=== PATIENT | male | born 1960 | race Two or more races ===

== ENCOUNTER 2025-05-16 05:29 | Inpatient (IN) | payer MEDICAID, SELFPAY ==
[2025-05-16] VITALS (11 sets, daily range): BP systolic 117–166; BP diastolic 77–100; PULSE 72–89; RESP 14–23; TEMP 36.3–37.3; O2SAT 89–100; BMI 20.9; BMI 17.7
--- NOTE | 2025-05-16 06:51 | EDNOTE_ITS ---
ED Fall Injury RME/HPI General Chief Complaint: Neuro Symptoms/Deficit Stated Complaint: NEAR SYNCOPE Time Seen by Provider: 05/16/25 06:45 Arrival date/time: 05/16/25 05:29 Limitations: no limitations RME / HPI RME / HPI Narrative: DR. MEJIA MAIN ED EVALUATION: 64 year old male presents to the Emergency Department [facility] with complaint of fall at work, he works at [employer]. He denies any injury from fall. No head injury or other symptoms reported at this time. He has repetitive motor movements that are chronic, from old age; he denies taking any medications for these spasms. Related Data Previous Rx's ?Medication ?Instructions ?Recorded acetaminophen 650 mg 650 mg PO Q8H PRN fever or p ain 05/10/23 tablet,extended release #30 tabs ibuprofen 600 mg tablet 600 mg PO Q8H PRN fever or p ain 05/10/23 #30 tabs Allergies Allergy/AdvReac Type Severity Reaction Status Date / Time No Known Allergies Allergy Verified 06/15/18 21:22 Review of Systems Review of Systems Systems Reviewed: All systems reviewed, normal except as documented Past Medical History Social History SMOKING STATUS: Never smoker SUBSTANCE USE: does not use ALCOHOL: Never ED Exam General Limitations: Present no limitations General appearance: Present alert and in no apparent distress Head Head exam: Present atraumatic, normocephalic and normal inspection Eye Eye exam: Present normal appearance, PERRL and EOMI ENT ENT exam: Present normal exam, normal oropharynx and mucous membranes moist Neck Neck exam: Present normal inspection, full ROM and trachea midline Chest Chest inspection: Present normal inspection and symmetric chest wall rise Respiratory Respiratory exam: Present normal lung sounds bilaterally Cardiovascular Cardiovascular exam: Present regular rate, normal rhythm and normal heart sounds Abdominal Exam Abdominal exam: Present soft and normal bowel sounds Extremities Exam Extremities exam: Present normal inspection and full ROM Back Exam Back exam: Present normal inspection and full ROM Neurological Exam Neurological exam: Present alert, oriented X3 and other (extra motor movements of the legs, arms, and neck, spasms but otherwise FROM of all extremities and no contractures) Psychiatric Psychiatric exam: Present normal affect and normal mood Skin Skin exam: Present warm, dry, intact and normal color Course Quality Measures none Orders Category Date Time Status COVID-19 Screening Questionnaire NOW Care 05/16/25 10:05 Active 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 Method 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 NOW Care 05/16/25 06:46 Active Continuous Pulse Oximetry NOW Care 05/16/25 06:46 Completed Decision to Admit X1 Care 05/16/25 10:04 Active EKG (ED ONLY) *Do not use* NOW Care 05/16/25 10:04 Active Insert [Insert IV] NOW Care 05/16/25 10:04 Active Consult to Nephrology Stat Cons 05/16/25 10:[address] cervical spine wo con Stat Exams 05/16/25 06:[address] head/brain wo con Stat Exams 05/16/25 06:50 Completed CXRP [XR chest 1V portable] Stat Exams 05/16/25 10:01 Taken EKG (ED Only) Stat Exams 05/16/25 10:01 Ordered CBC Stat Lab 05/16/25 06:52 Completed Comprehensive Metabolic Panel Stat Lab 05/16/25 06:52 Completed Creatine Kinase Stat Lab 05/16/25 10:17 Completed Lactate (Lactic Acid) Stat Lab 05/16/25 10:17 Completed PTT [Partial Thromboplastin Time] Stat Lab 05/16/25 10:17 Completed Prothrombin Time with INR Stat Lab 05/16/25 06:52 Completed LORazepam [Ativan] Med 05/16/25 06:50 Discontinued 1 mg PO X1 ONE Sodium Chloride 0.9% 1000 ml [Ns] 1,000 ml Med 05/16/25 10:01 Active IV 999 mls/hr levETIRAcetam INJ [Keppra Inj] Med 05/16/25 06:46 Discontinued 500 mg IVP X1 ONE Vital Signs Vital signs: Vital Signs Temperature 99.1 F 05/16/25 09:24 Pulse Rate 77 05/16/25 09:24 Respiratory Rate 17 05/16/25 09:24 Blood Pressure 164/93 H 05/16/25 09:24 Pulse Oximetry (%) 100 05/16/25 09:24 Oxygen Delivery Method Room Air 05/16/25 09:24 Fall MDM Narrative MDM Narrative:: I, Ania Langford, nataly scribing for and in the presence of Dr. Mejia. Status post fall but no injuries. Patient on exam had extra motor movements of the legs, arms, and neck, spasms but otherwise FROM of all extremities and no contractures. Labs show CORINA, creatinine was 6.2. Plan to admit for CORINA. Patient data External records reviewed:: [facility] previous records and EMS form Clinical information provided by:: patient, EMS and family Social determinants that could affect healthcare access:: none Patient has the following chronic illnesses:: Abdominal hernia. How is presenting disease/condition affected by chronic disease/condition?: uneffected by Evaluation data The following diagnostics were reviewed and interpreted by me:: lab results and radiology exam(s) Lab and/or radiology exams considered but not ordered:: none Interpretation Summary: Procedure(s): CT head/brain wo con Accession Number(s): [id number] cc: Yvan Mejia MD; Srinivasa Moncada MD; NO PRIMARY/FAMILY,PHYSICIAN~ Examination: CT brain head without contrast. 2-D sagittal coronal reconstructions Date and time of exam:May 16, 2025 0828 hours INDICATIONS: Patient fell today with injury to the head, head pain CTDI: vol (mGy):52.2 DLP: (mGycm):1113 Technique: Multiple CT axial sections of the brain have been obtained, 5 mm slice thickness. Contrast has not been administered. 2-D sagittal, coronal reconstructions have been obtained Low dose protocols were performed. One or more of the following dose reduction techniques were used; automated exposure control, adjustment of the mA and/or KV according to patient size, use of iterative reconstruction technique. Findings: All of the images are severely degraded by patient motion Ventricles are mildly to moderately enlarged. No gross hemorrhage IMPRESSION: Technically severely limited study No gross hemorrhage Repeat this study when the patient can cooperate Dictated By: Srinivasa Moncada MD Procedure(s): CT cervical spine wo con Accession Number(s): [id number] cc: Yvan Mejia MD; Srinivasa Moncada MD; NO PRIMARY/FAMILY,PHYSICIAN~ Examination: CT cervical spine without contrast 2-D sagittal reconstructions 2-D coronal reconstructions 3-D reconstructions. Exam date and time:May 16, 2025 0828 hours INDICATIONS: Patient fell today with injury to the neck, neck pain CTDI:vol (mGy) 7.86 DLP: (mGycm) 190 Technique: Multiple 2 mm axial sections of the cervical spine have been obtained. The coronal and sagittal reconstructions have been obtained. 3-D reconstructions have been obtained. Low dose protocols were performed. One or more of the following dose reduction techniques were used; automated exposure control, adjustment of the mA and/or KV according to patient size, use of iterative reconstruction technique. Findings: Images are severely degraded by continual patient motion No gross fracture IMPRESSION: Severely limited study. No gross fracture Recommend repeating this study when the patient can cooperate Dictated By: Srinivasa Moncada MD Medications / Prescriptions Medications or Prescriptions considered but not ordered:: none Medication administrations:: Medication Administration History Acetaminophen (Acetaminophen 325 Mg Tablet) 650 mg PO Q6H PRN PRN Reason: Fever >100.4 or pain Stop: 06/15/25 10:20 Sodium Chloride (Ns) 1,000 mls @ 999 mls/hr IV .Q1H1M ONE Stop: 05/16/25 11:01 Lactated Ringer's (Lactated Ringers) 1,000 mls @ 75 mls/hr IV .[id number] SHADY Stop: 06/15/25 10:47 Ondansetron HCl (Ondansetron Inj 2 Mg/Ml Inj 2 Ml) 4 mg IVP Q6H PRN; Protocol PRN Reason: NAUSEA OR VOMITING Stop: 06/15/25 10:20 Discontinued Medications Heparin Sodium (Porcine) (Heparin Sod Inj 5000 Unit/Ml Vial) 5,000 unit SC Q12HR SHADY Stop: 05/30/25 10:29 Levetiracetam (Levetiracetam Inj 100 Mg/Ml Vial 5ml) 500 mg IVP X1 ONE Stop: 05/16/25 06:47 Last Admin: 05/16/25 09:43 Dose: Not Given Documented By: CG Non-Admin Reason: Cancelled by Provider Lorazepam (Lorazepam 0.5 Mg Tablet) 1 mg PO X1 ONE Stop: 05/16/25 06:51 Last Admin: 05/16/25 09:12 Dose: 1 mg Documented By: CG see above Consultations Consultation(s) initiated? (list below): Yes Consultation #1 (Physician, Specialty, Details): Discussed test HPI, PMHx, lab, radiology results and/or management with Dr. Santana. Will consult an admission to the hospitalist. Time: 10:30 Consultation #2 (Physician, Specialty, Details): Discussed test HPI, PMHx, lab, radiology results and/or management with resident working with the hospitalist. Will admit for further evaluation and management. Accepts patient for admission. Time: 10:45 Diagnosis Fall Differential Diagnosis: other (Muscle spasms, chronic extra motor movements, head injury) Most likely diagnosis given after review of the tests above:: CORINA Admission Indicated Admission indicated?: indicated Admission Request Was there a request for admission?: Yes Admission Attestation Admission request attestation: Discussed case with [] from Hospitalist service regarding admission. Discussed patients ED course, exam findings, labs, and radiology results. The Hospitalist [agrees,declines] to accept the patient for admission. Disposition Plan Disposition Plan: Admit Discharge Plan Plan Patient Disposition: Admit Acute Care w/in Hospital Patient condition on transfer: Stable Problem List Clinical Impression: CORINA (acute kidney injury)
[2025-05-16 07:17] LABS: Basophils # (Auto) 0.1 Thou/mm3 (0.0-0.2); Basophils % (Auto) 1 % (0-2.5); Eosinophils # (Auto) 0.1 Thou/mm3 (0.0-0.5); Eosinophils % (Auto) 1 % (0-10); Hematocrit 26.6 % (41.0-53.0); Immature Granulocytes Auto 0.05 Thou/mm3 (0.00-0.00); Lymphocytes # (Auto) 0.8 Thou/mm3 (1.0-4.8); Lymphocytes % (Auto) 8 % (10-50); Mean Corpuscular HGB Conc 33.1 g/dl (31.0-37.0); Mean Corpuscular Hemoglobin 30.7 pg (25.0-35.0); Mean Corpuscular Volume 93 fL (80-100); Monocytes # (Auto) 0.7 Thou/mm3 (0.0-0.8); Monocytes % (Auto) 7 % (0-12); Neutrophils # (Auto) 7.8 Thou/mm3 (1.8-7.7); Neutrophils % (Auto) 83 % (37-80); Nucleated Red Blood Cell # 0.00 Thou/mm3 (0.00-0.00); Nucleated Red Blood Cell % 0 /100 WBC (0); Platelet Count 300 Thou/mm3 (140-440); RDW Standard Deviation 45.7 fL (35.1-43.9); Red Blood Count 2.87 Miln/mm3 (4.50-5.90); White Blood Count 9.5 Thou/mm3 (3.8-10.6)
[2025-05-16 07:26] LABS: Hemoglobin 8.8 g/dL (13.5-16.0)
[2025-05-16 07:30] LABS: INR 1.0 (0.9-1.3); Prothrombin Time 11.1 Seconds (9.0-12.2)
[2025-05-16 07:39] LABS: Alanine Aminotransferase 14 U/L (10-49); Albumin, Serum 4.0 gm/dL (3.4-4.8); Albumin/Globulin Ratio 1.3 (1.2-2.2); Alkaline Phosphatase 96 U/L (46-116); Anion Gap 14 (7-16); Aspartate Amino Transferase 18 U/L (0-34); BUN/Creatinine Ratio 15 Ratio (12-20); Bilirubin,Total 0.2 mg/dL (0.3-1.2); Blood Urea Nitrogen 92 mg/dL (9-23); Calcium 8.6 mg/dL (8.3-10.6); Calcium (Corrected) 8.6 mg/dL (8.5-10.1); Carbon Dioxide 20.5 mMol/L (20.0-31.0); Chloride 109 mMol/L (98-107); Creatinine (Component) 6.2 mg/dL (0.6-1.3); Globulin 3.0 gm/dL (2.3-3.5); Glucose 102 mg/dL (74-106); Osmolality,Calculated 313 (275-295); Potassium 4.4 mMol/L (3.4-5.1); Sodium 143 mMol/L (136-145); Total Protein 7.0 gm/dL (5.7-8.2); eGFR 10 See Note
--- NOTE | 2025-05-16 10:01 | XR_ITS ---
Examination: AP chest single view Technique one AP portable upright chest single view Date and time: May 16, 2025 1007 hours INDICATIONS: Coughing today. FINDINGS: Normal heart size. No lobar pneumonia. The osseous structures are intact IMPRESSION: No lobar pneumonia
--- NOTE | 2025-05-16 10:01 | EKG_ITS ---
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
[2025-05-16 10:24] LABS: Lactate (Lactic Acid) 0.5 mMol/L (0.4-2.0)
--- NOTE | 2025-05-16 10:32 | XR_ITS ---
Examination: Retroperitoneal ultrasound, complete Technique: Multiple high resolution grayscale images of the retroperitoneum obtained, including kidneys and bladder. Exam date and time:May 16, 2025 1220 hours INDICATIONS: Acute renal insufficiency on laboratory examination today FINDINGS: Right kidney 14.8 cm renal cortex 0.5 cm Left kidney 18.0 cm renal cortex 1.7 cm Advanced bilateral hydronephrosis Solid nodule bladder wall 2.8 x 1.9 x 1.4 cm Bladder prevoid volume 894 cc IMPRESSION: Advanced hydronephrosis Bladder mass Consider CT abdomen and pelvis without contrast follow-up
[2025-05-16 10:42] LABS: Creatine Kinase 323 U/L (34-171); Partial Thromboplastin Time 29.5 Seconds (22.0-36.0)
--- NOTE | 2025-05-16 10:44 | PD.RESCONSUL ---
HPI Data of Consult Consult date: 05/16/25 Requesting Physician: Margie Davis DO Admitting Provider: Margie Davis DO Attending Provider: Margie Davis DO Primary Care Provider: Physician No Primary/Family Consult Narrative Reason for consult: CORINA History of present illness: Amarjit Meade is a 62-year-old male with no past medical history presented for mechanical fall at work. States that he fell forward because his lower back has been giving out for the past few months. He has also been having chorea-like, jerky movements for the past few months and is supposed to see neurology but is having insurance issues. Has not seen a physician in many years. Per , patient has been having enuresis for the past few weeks and claims patient is stubborn and does not want to see a physician. Patient's urine is normally green due to vitamin supplements. Patient admits that he does not drink very much water nor does he urinate very much. Denies pain on urination, increase in urinary urgency, frequency or hesitancy, interrupted stream, any history of prostate issues, flank pain, or recent weight loss. Denies fever, chills, shortness of breath or chest pain. Denies family history of any kidney disease or dialysis. In the ED blood pressure 164/93 heart rate 77 temp 99.1 saturating 100% on room air. Significant labs include hemoglobin 8.8, creatinine 6.2, BUN of 92, and GFR of 10, no baseline to compare. Lactic acid 0.5, CK 323. Nephrology consulted for CORINA workup. Patient currently seen in the emergency department. Son at bedside. cc:: cc: Margie Davis DO Review of Systems Review of Systems Narrative Review of Systems: CONSTITUTIONAL: Patient denies any fever, chills. Patient had weight loss HEENT: Denies any visual disturbances or hearing problems. CARDIOVASCULAR: Patient denies any chest pain, shortness of breath, swelling in the lower extremities. PULMONARY: Patient denies any shortness of breath, cough. GASTROINTESTINAL: Patient denies any abdominal pain, constipation, nausea, vomiting, diarrhea. GENITOURINARY: Patient denies any urinary symptoms of burning or frequency or hematuria, denies any form in the urine. SKIN: Denies any rash. MUSCULOSKELETAL: Gait imbalance with fall NEUROLOGICAL: Denies any neurological problems of strokes, seizures or confusion. Denies any memory problems. Patient has involuntary jerking movements. PSYCHIATRIC: Denies any depression or anxiety. LYMPHATICS : No lymphadenopathy Past Medical History Past Medical History CARDIAC: Negative Congestive Heart Failure RESPIRATORY: Negative Chronic Obstructive Pulmonary Disease (COPD) GENITOURINARY: Negative Renal Disease ENDOCRINE: Negative Diabetes Mellitus Type 1 or Diabetes Mellitus Type 2 Social History SMOKING STATUS: Former smoker SUBSTANCE USE: does not use Exam Vital Signs Temp Pulse Resp BP Pulse Ox O2 Del Method 99.1 F 77 17 164/93 H 100 Room Air 05/16/25 09:24 05/16/25 09:24 05/16/25 09:24 05/16/25 09:24 05/16/25 09:24 05/16/25 09:24 Narrative Exam General: AOx1, no acute distress, chorea-like movements present HEENT: NC/AT, mucous membranes dry, bilateral sclera anicteric Cardiovascular: regular rate and rhythm, S1/S2 present, no murmurs appreciated Pulmonary: clear to auscultation bilaterally, no rales/rhonchi/wheezes Abdominal: soft, non-tender, non-distended, no rebound/guarding, bowel sounds present Extremities: no peripheral edema Skin: warm and dry, intact, no rashes Neuro CN II-XII grossly intact, no focal deficits, alert, following commands Results Labs 05/16/25 17:40 05/16/25 06:52 Labs: Short CBC 05/16/25 Range/Units 06:52 WBC 9.5 (3.8-10.6) Thou/mm3 Hgb 8.8 L (13.5-16.0) g/dL Hct 26.6 L (41.0-53.0) % Plt Count 300 (140-440) Thou/mm3 BMP 05/16/25 06:52 Sodium 143 Potassium 4.4 Chloride 109 H Carbon Dioxide 20.5 BUN 92 H Creatinine 6.2 H* Glucose 102 Calcium 8.6 Cardiac Enzymes 05/16/25 Range/Units 10:17 Total Creatine Kinase 323 H (34-171) U/L Liver Function 05/16/25 Range/Units 06:52 Total Bilirubin 0.2 L (0.3-1.2) mg/dL AST 18 (0-34) U/L ALT 14 (10-49) U/L Alkaline Phosphatase 96 (46-116) U/L Albumin 4.0 (3.4-4.8) gm/dL Quality Measures Quality Measures VTE prophylaxis Medications Home Medications and Allergies Allergies Allergy/AdvReac Type Severity Reaction Status Date / Time No Known Allergies Allergy Verified 06/15/18 21:22 Visit Medications Acetaminophen (Acetaminophen 325 Mg Tablet) 650 mg PO Q6H PRN PRN Reason: Fever >100.4 or pain Stop: 06/15/25 10:20 Heparin Sodium (Porcine) (Heparin Sod Inj 5000 Unit/Ml Vial) 5,000 unit SC Q12HR SHADY Stop: 05/30/25 10:29 Sodium Chloride (Ns) 1,000 mls @ 999 mls/hr IV .Q1H1M ONE Stop: 05/16/25 11:01 Ondansetron HCl (Ondansetron Inj 2 Mg/Ml Inj 2 Ml) 4 mg IVP Q6H PRN; Protocol PRN Reason: NAUSEA OR VOMITING Stop: 06/15/25 10:20 Discontinued Medications Levetiracetam (Levetiracetam Inj 100 Mg/Ml Vial 5ml) 500 mg IVP X1 ONE Stop: 05/16/25 06:47 Last Admin: 05/16/25 09:43 Dose: Not Given Lorazepam (Lorazepam 0.5 Mg Tablet) 1 mg PO X1 ONE Stop: 05/16/25 06:51 Last Admin: 05/16/25 09:12 Dose: 1 mg Assessment & Plan Plan Amarjit Meade is a 62-year-old male with no past medical history presented for mechanical fall at work due to chorea-like movements, found to have Cr 6.2 and BUN 92 with bladder mass and advanced hydronephrosis. #Obstructive uropathy 2/2 bladder mass causing #Bilateral hydronephrosis #CORINA Patient has no past medical history, history of kidney disease or any recent lab values to compare. Reports new enuresis for the past few weeks and jerky movements for a few months, latter likely uremic origin. On admission, creatinine 6.2, BUN 92, GFR 10, CK 323, ammonia 17, lactic acid 0.5. Ddx includes obstrutive uropathy, such as urothelial carcinoma or BPH, causing CORINA vs CKD. Without baseline, difficult to determine. Likely new bladder mass causing advanced bilateral hydronephrosis as seen on renal US. Renal US shows advanced bilateral hydronephrosis, solid nodule bladder wall 2.8x1.9x1.4 cm, and bladder prevoid volume ~900cc. Plan: -F/u UA, Ulytes, UDS -F/u CT abd/pel -Araiza in place with hematuria. Urology was consulted. Good urinary output noted. #Normocytic anemia #Hyperparathyroidism -Management per primary team. Plan of care discussed with attending Dr. Santana. Joanna Matamoros, PGY-1 Internal Medicine Attending Provider Attestation/Addendum Patient seen and examined with resident physician Dr. Matamoros. Note reviewed, agree with findings and recommendations. Patient currently seen in ER. Son at bedside. over the phone. Patient seems to be doing poorly for the last couple of months with involuntary movements. Did not seek medical attention. Have not seen a doctor for some time. patient admits to taking vitamins which is making his urine green. Take some ibuprofen as needed. Admitted with CORINA. Workup showed he has a bladder mass with bilateral hydronephrosis. Spoke to Dr. Hernandez-will come and see the patient tomorrow. Recommended Araiza catheter and once the Araiza was placed in more than 900 mL urine came out. Was bloody. Dr. Hernandez recommended to continue watchful waiting. No bladder irritation. At this point we will hold off on dialysis and biopsy. Suspect severe obstructive uropathy. Pending CAT scan patient might need percutaneous nephrostomy tube placement if Dr. Hernandez unable to place anterograde stents. Will monitor closely. Thank you Mariza for allowing me to participate in the care of Mr. Meade.
[2025-05-16 10:57] LABS: Ammonia 17 uMol/L (11-32)
[2025-05-16 11:41] LABS: Parathyroid Hormone Intact 370.5 pg/ml (18.5-88.0)
[2025-05-16 11:42] LABS: Magnesium 1.6 mg/dL (1.6-2.6); Phosphorous 5.2 mg/dL (2.4-5.1)
--- NOTE | 2025-05-16 11:53 | ESHP_ITS ---
<Statement entered by Figueroa Cross MD - 05/16/25 19:03> Patient seen and examined at bedside. I discussed and supervised with the risk intern physician who took care of this patient. I personally saw and examined the patient. I agree with most of the assessment and plan. Patient presented for evaluation for mechanical ground level fall. Found to have significant kidney disease, no previous labs to compare to, no known history kidney disease. Renal US showed bladder mass, kristofer blood after viveros cath placement. CT abd/pelvis pending, nephro on board. Noted to have chorea-like movements, started several weeks ago per at bedside. Urology consulted. Plan of care discussed with attending Dr. Davis. Figueroa Cross MD PGY-2 Documentation for date of: 05/16/25 HPI History of Present Illness Chief complaint: Neuro Symptoms/Deficit History of present illness: Mr. Gonzalez is a 64M with unknown past medical history presents for ground level fall at work ([employer]). Pt denies lost of consciousness, syncope, or heart palpitation prior to the fall. He denies midline tenderness, neck or head injury. He does report of slight back pain not associated with the fall, onset prior to this incident. He is a poor historian with slur speech, history gathered from at bedside. Per , he has a repetitive chorea-like motor movements that are chronic with unknown etiology. She states this is how pt acts at baseline, no recent change in behavior or speech. 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 Pt has not seen a doctor for many years and do not see a primary care physician. The only reported history was a UTI back in 2018. He denies CVA tenderness, fever, n/v, dysuria, and produce urine without problem. He is admitted today for incidental finding of elevated creatinine of 6.2 with unclear etiology. ED Course In the ED, initial labs showed Hgb of 8.8, Na 143, K 4.4. Degree Clerk 6.2. BUN 92. eGFR 10. Phos 5.2, CK 323. EKG NSR with rate of 80. CT head : limited due to motion. C-spine CT : limited due to motion. CXR : unremarkable. Bladder scan : Bladder mass measuring 2.8 x 1.9 x 1.4 cm, advanced bilateral hydronephrosis. ROS * Constitutional: NAD, a/o x 3, denies fever/chills. Normal mentation according to at bedside. Slurr speech at baseline due to missing upper dental plate per . * GI: Denies nausea, vomiting. * CV: Denies chest pain or palpitations. * Resp: Denies SOB. * : Denies dysuria, CVA tenderness, suprapubic tenderness. * Neuro: Denies dizziness, syncope, or LOC. Chronic chorea-like movement. * Skin: No ecchymosis, dry, and intact. Past Medical History * UTI (2018) Social History * Lives at home, independent baseline. * Denies alcohol, illicit drug use. 30-pack years smoking history, reports cessation 04/30/2025. Surgical History * Right meniscus repair Allergies * NKDA Home Meds * OTC Ibuprofen 200mg as needed Exam Vital Signs Temp Pulse Resp BP Pulse Ox O2 Del Method 99.0 F 84 19 148/82 H 100 Room Air 05/16/25 11:38 05/16/25 11:38 05/16/25 11:38 05/16/25 11:38 05/16/25 11:38 05/16/25 11:38 Narrative Exam General: malnourished, in no distress. Oriented x 3 Skin: No rash, unusual bruising or prominent lesions Head: Normocephalic, atraumatic, no visible or palpable masses, depressions, or scaring. Eyes: conjunctiva clear, sclera non-icteric, no exudates or hemorrhages. Near sighted. Heart: Regular rate and rhythm Lungs: Clear to auscultation. No rales, wheeze, or rhonchi Abdomen: No tenderness, guarding, or rigidity. Palpable bladder mass. Back: Spine normal without deformity or tenderness, no CVA tenderness Extremities: No amputations or deformities, cyanosis, edema or varicosities, peripheral pulses intact Musculoskeletal: chorea-like movement. Neurologic: Sensation to pain, touch, and proprioception normal. Results: Labs 05/17/25 05:27 05/17/25 05:27 Labs: Short CBC 05/16/25 Range/Units 06:52 WBC 9.5 (3.8-10.6) Thou/mm3 Hgb 8.8 L (13.5-16.0) g/dL Hct 26.6 L (41.0-53.0) % Plt Count 300 (140-440) Thou/mm3 BMP 05/16/25 06:52 Sodium 143 Potassium 4.4 Chloride 109 H Carbon Dioxide 20.5 BUN 92 H Creatinine 6.2 H* Glucose 102 Calcium 8.6 Cardiac Enzymes 05/16/25 Range/Units 10:17 Total Creatine Kinase 323 H (34-171) U/L Liver Function 05/16/25 Range/Units 06:52 Total Bilirubin 0.2 L (0.3-1.2) mg/dL AST 18 (0-34) U/L ALT 14 (10-49) U/L Alkaline Phosphatase 96 (46-116) U/L Albumin 4.0 (3.4-4.8) gm/dL Quality Measures Quality Measures VTE prophylaxis Medications Home Medications and Allergies Allergies Allergy/AdvReac Type Severity Reaction Status Date / Time No Known Allergies Allergy Verified 06/15/18 21:22 Visit Medications Acetaminophen (Acetaminophen 325 Mg Tablet) 650 mg PO Q6H PRN PRN Reason: Fever >100.4 or pain Stop: 06/15/25 10:20 Lactated Ringer's (Lactated Ringers) 1,000 mls @ 75 mls/hr IV .[id number] SHADY Stop: 06/15/25 10:47 Ondansetron HCl (Ondansetron Inj 2 Mg/Ml Inj 2 Ml) 4 mg IVP Q6H PRN; Protocol PRN Reason: NAUSEA OR VOMITING Stop: 06/15/25 10:20 Discontinued Medications Heparin Sodium (Porcine) (Heparin Sod Inj 5000 Unit/Ml Vial) 5,000 unit SC Q12HR SHADY Stop: 05/30/25 10:29 Sodium Chloride (Ns) 1,000 mls @ 999 mls/hr IV .Q1H1M ONE Stop: 05/16/25 11:01 Levetiracetam (Levetiracetam Inj 100 Mg/Ml Vial 5ml) 500 mg IVP X1 ONE Stop: 05/16/25 06:47 Last Admin: 05/16/25 09:43 Dose: Not Given Lorazepam (Lorazepam 0.5 Mg Tablet) 1 mg PO X1 ONE Stop: 05/16/25 06:51 Last Admin: 05/16/25 09:12 Dose: 1 mg Assessment & Plan Plan Mr. Meade is a 64M with unknown past medical history presents for ground level fall. Pt is a poor historian, history obtained from at bedside. Pt denies midline tenderness, neck or head injury. Pt has a chorea-like repetitive movement at baseline, which the states started a few weeks ago. US Bladder shows a bladder mass with bilateral hydronephrosis. Admitted for CORINA with creatinine of 6.2. #CORINA vs ESRD Degree Clerk 6.2. BUN 92. eGFR 10. Bilateral hydronephrosis with bladder mass on US. - Urology consult - Nephrology consult - possible IR dialysis catherter insertion - strict I/O - renal dose medication - Daily CMP, trend electrolyte. #bladder mass Solid nodule bladder wall measuring 2.8 x 1.9 x 1.4cm - pending urology consult #chorea-like movement #Anemia Hgb 8.8, like due to renal failure - daily CBC, if falls below 7, consider blood transfusion - consider EPO, iron panel. #Hyperparathyroidism PTH 370.5. Ca 8.6 likely secondary to renal failure - follow up on PTH levels Dispo: Plan for MedSurg admit DVT prophylaxis: SCDs GI prophylaxis: Protonix 40 IV Diet: Renal diet Lines: Peripheral IV, viveros catheter Code status: Full code Case discussed with my senior resident Dr. Cross Case discussed with my attending Dr. Ryan Kirk DO PGY 1 Attending Provider Attestation/Addendum Margie Sutherland DO, attest that I was physically present for the wallace portions of the service and evaluated the patient with the resident and I reviewed and discussed the case with the resident and agree with the resident's findings and plans of care as documented above Patient is a 64-year-old male with past medical history of UTI who was brought to the ED after sustaining a ground-level fall while at work. Patient works at night and he states that he had a mechanical fall. Patient denies any lightheadedness or syncopal episodes. Patient states that he has been having back pain for the past few weeks during which he takes ibuprofen. is at bedside to provide history. She states that patient was supposed to retire 3 weeks ago, but patient continues to work at night. However, she has noted a significant decline in his health, but patient has not sought any medical help. She states that for the past few weeks to months, patient has been very unsteady and noticed to have some involuntary movements. She states that she noted that there is some stuttering in his speech, but also states that he has trouble speaking since his top dentures are currently missing. Patient appears to have restless legs and occasionally smacks his lips before speaking and has occasional rhythmic forward tilting of his trunk. Patient endorses straining on urination and incomplete voiding. However, he denies any hematuria. He also denies any fevers or chills. Upon evaluation in the ED, patient was found to be in acute renal failure with a creatinine of 6.2. Patient has blue-colored urine output, but patient does not notice any decrease in urinary frequency. [facility] workup of medical management of acute renal failure. Nephrology was also consulted for further workup and medical management of acute renal failure. However, renal ultrasound revealed advanced bilateral hydronephrosis and a bladder mass. On exam, patient is noted to have a firm mass in his suprapubic region which patient denies any pain on palpation. Patient states that it is a hernia. However the mass does not change or fluctuate, and it is not protruding. Patient does not appear to be cachectic, but lungs are clear to auscultation bilaterally cardiovascular exam is unremarkable. A Viveros catheter was subsequently placed during which the nurse stated that there was no resistance upon placement of Viveros catheter and urine had freely flowed, but followed by kristofer blood. Due to hematuria, urology was called and recommended CT abdomen and pelvis. Will keep Viveros in place and manually irrigate the port of Viveros if Viveros catheter is clogged. Will trend H&H and type and screen in the event that patient needs a transfusion once hemoglobin drops below 7. Will follow-up with nephrology recommendations as well as urology recommendations. Will start patient on IV fluids and avoid any nephrotoxic agents at this time. Patient will likely need a nephrostomy tube in a.m. if hydronephrosis is persistent. Will follow-up with CT abdomen and pelvis results. Will give Benadryl for patient to remain calm as he was unable to have CT abdomen and pelvis done in ED due to involuntary movements. Will also place IV Ativan as needed to complete the study.
--- NOTE | 2025-05-16 11:56 | XR_ITS ---
Examination: AP chest single view Technique one AP portable upright chest single view Date and time: May 16, 2025 1217 hours Comparison May 16, 2025 1007 hours INDICATIONS: Chest pain today. FINDINGS: Early pneumonia left base Normal heart size The osseous structures are intact IMPRESSION: Early pneumonia left base
[2025-05-16] MEDS: SODIUM CHLORIDE 0.9% 1000 ML 1,000 ML 999 ML IV (13:23)
[2025-05-16] MEDS: RINGERS LACTATED 1000 ML 1,000 ML 75 ML IV (13:24)
--- NOTE | 2025-05-16 14:14 | PC.NURSE ---
DR. VO AND DR. BASURTO AT BEDSIDE AND MADE AWARE AFTER MARTINEZ CATHETER INSERTION, INITIAL DRAINAGE WAS PALE URINE FOLLOWED BY BRIGHT RED BLOOD. PER DR. VO AND DR. BASURTO, ONLY IRRIGATE WITH 60 TO 120CC OF STERILE WATER.
--- NOTE | 2025-05-16 15:30 | PC.NURSE ---
patient in IR 1446 for perm cath insertion ,patient placed in IR bed and prepped for tunneled hemodialysis catheter insertion procedure. Procedure cancelled electronically at 1458, no communication made to IR staff. At 1518, cancelled order was noticed and phone call was made to Dr. Cross (who is also caring for patient) to verify procedure cancelled, hospitalist stated to call Dr. Santana who is the land developer consulted for this patient. Dr. Santana callled and stated patient does not need dialysis catheter at this time, patient has bilateral hydronephrosis and viveros catheter placed, no need for dialysis catheter at this time. patient placed in [facility], taken back to ER 19. Dr. Moncada made aware of cancellation. Report given to Meme GARCIA.
[2025-05-16 17:47] LABS: Collection Type, Urine Clean Catch; Squamous Epithelial Cell,Urine 0 /hpf (0-5)
--- NOTE | 2025-05-16 17:50 | XR_ITS ---
Examination: CT abdomen and pelvis without contrast. Coronal 3-D reconstructions. Sagittal 2-D reconstructions. Date and time of exam:May 16, 2025 2050 hours INDICATIONS: Renal sonogram today significant hydronephrosis, 28 mm bladder mass CTDI: vol (mGy): 5.22 DLP: (mGycm): 320 Technique: Axial images of the abdomen have been obtained, 3 mm slice thickness Intravenous contrast material has not been administered. Low dose protocols were performed. One or more of the following dose reduction techniques were used; automated exposure control, adjustment of the mA and/or KV according to patient size, use of iterative reconstruction technique. Findings: No focal liver or splenic lesions Contracted gallbladder Heavy abdominal aortic calcification Pancreas appears diffusely mildly prominent Advanced bilateral hydronephrosis Prominent periaortic pericaval and pelvic lymphadenopathy Distended urinary bladder with left posterior bladder diverticulum Irregular bladder wall thickening greater on the right side posteriorly measuring up to 3 cm Transverse prostate dimension 5.5 cm Advanced degenerative disc disease L5-S1 IMPRESSION: Extensive abdominal and pelvic lymphadenopathy. Advanced bilateral hydronephrosis Distended urinary bladder, marked irregular bladder wall thickening, especially posteriorly most consistent with bladder cancer, recommend urology consultation
[2025-05-16 17:51] LABS: Hematocrit 26.6 % (41.0-53.0)
[2025-05-16 17:54] LABS: Hemoglobin 8.7 g/dL (13.5-16.0)
[2025-05-16 18:04] LABS: Bilirubin,Urine Negative (Negative); Budding Yeast,Urine Present; Clarity,Urine Bloody (Clear/Hazy); Color,Urine Dark-Red (Lt Yel-Yel); Culture Indicated,Urine Yes; Glucose, Urine 1+ (Negative); Ketones,Urine Negative (Negative); Leukocyte Esterase,Urine Positive (Negative); Nitrite,Urine Negative (Negative); PH,Urine 7.5 (5.0-7.0); Protein,Urine 3+ (Neg - Trace); RBC,Urine 121640 /hpf (0-3); Specific Gravity,Urine 1.021 (1.001-1.035); Urobilinogen,Urine Negative mg/dL (0.0-1.0); WBC,Urine 129 /hpf (0-5)
[2025-05-16 18:05] LABS: Blood,Urine 3+ (Negative)
[2025-05-16 18:18] LABS: Amphetamine/Methamp Scrn,U Negative (Negative); Barbiturate Screen,Urine Negative (Negative); Benzodiazepines Screen,Urine Negative (Negative); Benzoylecgonine Screen, Ur Negative (Negative); Creatinine,Random Urine 38 mg/dL (30-125); Fentanyl Screen,Urine Negative (Negative); Opiate Screen,Urine Negative (Negative); Sodium,Urine Random 105.0 mMol/L (20.0-110.0); THC Screen,Urine Negative (Negative)
[2025-05-16 18:54] LABS: Protein Total, Random Urine 1832 mg/dL (1-14)
[2025-05-16] MEDS: SEVELAMER CARBONATE 800 MG TABLET PO (19:45)
[2025-05-16] MEDS: Magnesium Sulfate 4 GM Ivpb 4 GM/50 ML BAG IV (19:45)
[2025-05-17] VITALS (14 sets, daily range): BP systolic 123–148; BP diastolic 68–85; PULSE 67–89; RESP 16–22; TEMP 36.3–36.9; O2SAT 95–100
[2025-05-17 04:27] LABS: Influenza A Ag Negative; Influenza B Ag Negative
--- NOTE | 2025-05-17 05:39 | PC.NURSE ---
Pt stated that family member will be bring pt's list of home medication.
[2025-05-17 06:36] LABS: Basophils # (Auto) 0.0 Thou/mm3 (0.0-0.2); Basophils % (Auto) 0 % (0-2.5); Eosinophils # (Auto) 0.2 Thou/mm3 (0.0-0.5); Eosinophils % (Auto) 1 % (0-10); Hematocrit 26.9 % (41.0-53.0); Immature Granulocytes Auto 0.04 Thou/mm3 (0.00-0.00); Lymphocytes # (Auto) 0.8 Thou/mm3 (1.0-4.8); Lymphocytes % (Auto) 8 % (10-50); Mean Corpuscular HGB Conc 32.3 g/dl (31.0-37.0); Mean Corpuscular Hemoglobin 30.3 pg (25.0-35.0); Mean Corpuscular Volume 94 fL (80-100); Monocytes # (Auto) 0.6 Thou/mm3 (0.0-0.8); Monocytes % (Auto) 6 % (0-12); Neutrophils # (Auto) 8.7 Thou/mm3 (1.8-7.7); Neutrophils % (Auto) 84 % (37-80); Nucleated Red Blood Cell # 0.00 Thou/mm3 (0.00-0.00); Nucleated Red Blood Cell % 0 /100 WBC (0); Platelet Count 296 Thou/mm3 (140-440); RDW Standard Deviation 46.2 fL (35.1-43.9); Red Blood Count 2.87 Miln/mm3 (4.50-5.90); White Blood Count 10.4 Thou/mm3 (3.8-10.6)
[2025-05-17 06:43] LABS: INR 1.0 (0.9-1.3); Partial Thromboplastin Time 31.8 Seconds (22.0-36.0); Prothrombin Time 11.1 Seconds (9.0-12.2)
[2025-05-17 06:55] LABS: Hemoglobin 8.7 g/dL (13.5-16.0)
[2025-05-17 07:04] LABS: Alanine Aminotransferase 12 U/L (10-49); Albumin, Serum 3.7 gm/dL (3.4-4.8); Albumin/Globulin Ratio 1.3 (1.2-2.2); Alkaline Phosphatase 85 U/L (46-116); Anion Gap 13 (7-16); Aspartate Amino Transferase 18 U/L (0-34); BUN/Creatinine Ratio 13 Ratio (12-20); Bilirubin,Total 0.3 mg/dL (0.3-1.2); Blood Urea Nitrogen 84 mg/dL (9-23); Calcium 8.6 mg/dL (8.3-10.6); Calcium (Corrected) 8.8 mg/dL (8.5-10.1); Carbon Dioxide 18.6 mMol/L (20.0-31.0); Cardiac Risk Estimate 3.4 RATIO (4.0-6.7); Chloride 106 mMol/L (98-107); Cholesterol 116 mg/dL (132-200); Creatinine (Component) 6.4 mg/dL (0.6-1.3); Estimated Creatinine Clearance 10.9 mL/min (>60); Free T4 (Free Thyroxine) 0.90 ng/dL (0.89-1.76); Globulin 2.9 gm/dL (2.3-3.5); Glucose 107 mg/dL (74-106); HDL Cholesterol 34 mg/dL (40-60); LDL Cholesterol,Calculated 64 mg/dL (0-130); Magnesium 2.7 mg/dL (1.6-2.6); Osmolality,Calculated 301 (275-295); Phosphorous 4.7 mg/dL (2.4-5.1); Potassium 4.0 mMol/L (3.4-5.1); Sodium 138 mMol/L (136-145); Thyroid Stimulating Hormone 1.59 uIU/mL (0.55-4.78); Total Protein 6.6 gm/dL (5.7-8.2); Triglycerides 90 mg/dL (30-150); eGFR 9 See Note
[2025-05-17 07:10] LABS: Glucose Estimated Average 100 mg/dL (80-131); Hemoglobin A1C 5.1 % Hgb (4.8-6.0)
--- NOTE | 2025-05-17 07:50 | ESPR_ITS ---
<Statement entered by Abhay Rojas MD - 05/17/25 17:54> Patient was seen and examined in the room. no acute overnight events reported. Patient underwent procedure for IR guided nephrostomy tube however left tube accidentally came out. Right nephrostomy tube is draining with blood mixed with urine. Lymph node biopsy was performed without complication. Patient was started on diet. Nephrology recommended to hold off on dialysis and continue with IV fluids for now. Urologist will evaluate the patient on Tuesday and evaluate nephrostomy tube. For now, he recommended to continue to monitor nephrostomy tube and Viveros catheter. Due to bladder mass, Viveros catheter is displaced. Will follow-up with nephro recommendations for possible IR guided dialysis catheter insertion. Currently not an urgent need of dialysis given electrolytes unremarkable and still having urine output. I discussed and supervised with the risk management internship physician who took care of this patient. I personally saw and examined the patient. I agree with most of the assessment and plan. Disclaimer: Despite multiple revisions, due to the dictation software being used, the document bellow may not be free of grammatical errors including phonetic/typographic errors. However, this does not deter from our commitment to providing health care in the patient's best interest in mind. Plan of care discussed with attending Physician Dr. Ryan Rojas MD PGY-3 Documentation for date of: 05/17/25 Subjective Subjective Interval history: No acute events overnight patient reports not sleeping well due to constant interruptions Nephrostomy tubes placed bilaterally with IR however when tube came out postprocedure Abdominal lymph nodes biopsied with IR today Exam Vital Signs Temp Pulse Resp BP Pulse Ox O2 Del Method O2 Flow Rate 97.4 F 69 16 148/78 H 97 Nasal Cannula 3 05/17/25 07:29 05/17/25 07:29 05/17/25 07:29 05/17/25 07:29 05/17/25 07:29 05/17/25 07:05/16/25 15:15 Narrative Exam General: malnourished, frail in no distress. Oriented x 3 Skin: No rash, unusual bruising or prominent lesions Head: Normocephalic, atraumatic, no visible or palpable masses, depressions, or scaring. Eyes: conjunctiva clear, sclera non-icteric, no exudates or hemorrhages. Near sighted. Heart: Regular rate and rhythm Lungs: Clear to auscultation. No rales, wheeze, or rhonchi Abdomen: No tenderness, guarding, or rigidity. Palpable bladder mass. Back: Spine normal without deformity or tenderness, no CVA tenderness Extremities: No amputations or deformities, cyanosis, edema or varicosities, peripheral pulses intact Neurologic: Alert and oriented x 3, chorea like movements. Objective Labs 05/18/25 04:42 05/18/25 04:42 Labs: Laboratory Results - last 24 hr 05/16/25 05/16/25 05/16/25 06:52 10:17 17:30 WBC RBC Hgb Hct MCV MCH MCHC RDW Std Deviation Plt Count Neut % (Auto) Lymph % (Auto) Wake % (Auto) Eos % (Auto) Baso % (Auto) Neut # (Auto) Lymph # (Auto) Wake # (Auto) Eos # (Auto) Baso # (Auto) Immature Gran # (Auto) Absolute Nucleated RBC Immature Gran % Nucleated RBC % PT INR APTT 29.5 Sodium 143 Potassium 4.4 Chloride 109 H Carbon Dioxide 20.5 Anion Gap 14 BUN 92 H Creatinine 6.2 H* Estim Creat Clear Calc Not Performed. eGFR 10 L* BUN/Creatinine Ratio [address] Glu mg/dL Hemoglobin A1c Calculated Osmolality 313 H Lactic Acid 0.5 Calcium 8.6 Corrected Calcium 8.6 Phosphorus 5.2 H Magnesium 1.6 Total Bilirubin 0.2 L AST 18 ALT 14 Alkaline Phosphatase 96 Ammonia 17 Total Creatine Kinase 323 H Total Protein 7.0 Albumin 4.0 Globulin 3.0 Albumin/Globulin Ratio 1.3 Triglycerides Cholesterol LDL Cholesterol, Calc HDL Cholesterol Cholesterol/HDL Ratio TSH Free T4 PTH Intact 370.5 H Ur Collection Type Clean Catch Urine Color Dark-Red Urine Clarity Bloody A Urine pH 7.5 H Ur Specific [place] 1.021 Urine Protein 3+ A Urine Glucose (UA) 1+ A Urine Ketones Negative Urine Blood 3+ A Urine Nitrite Negative Urine Bilirubin Negative Urine Urobilinogen (Auto) Negative Ur Leukocyte Esterase Positive Urine RBC 145406 H Urine WBC 129 H Ur Squamous Epith Cells 0 Urine Bacteria None Urine Yeast (Budding) Present A Ur Culture Indicated? Yes Ur Random Creatinine 38 U Random Total Protein 1832 H Ur Random Sodium 105.0 Urine Opiates Screen Negative Urine Fentanyl Screen Negative Ur Barbiturates Screen Negative U Amphetamin/Meth Scrn Negative U Benzodiazepines Scrn Negative U Cocaine Metab Screen Negative U Marijuana (THC) Screen Negative Influenza A (Rapid) Influenza B (Rapid) Blood Type Antibody Screen Blood Bank Wristband ID 05/16/25 05/16/25 05/17/25 17:40 22:00 05:27 WBC 10.4 RBC 2.87 L Hgb 8.7 L 8.7 L Hct 26.6 L 26.9 L MCV 94 MCH 30.3 MCHC 32.3 RDW Std Deviation 46.2 H Plt Count 296 Neut % (Auto) 84 H Lymph % (Auto) 8 L Wake % (Auto) 6 Eos % (Auto) 1 Baso % (Auto) 0 Neut # (Auto) 8.7 H Lymph # (Auto) 0.8 L Wake # (Auto) 0.6 Eos # (Auto) 0.2 Baso # (Auto) 0.0 Immature Gran # (Auto) 0.04 H Absolute Nucleated RBC 0.00 Immature Gran % 0 Nucleated RBC % 0 PT 11.1 INR 1.0 APTT 31.8 Sodium 138 Potassium 4.0 Chloride 106 Carbon Dioxide 18.6 L Anion Gap 13 BUN 84 H Creatinine 6.4 H* Estim Creat Clear Calc 10.9 L eGFR 9 L* BUN/Creatinine Ratio 13 [address]ucose [address] Glu mg/dL 100 Hemoglobin A1c 5.1 Calculated Osmolality 301 H Lactic Acid Calcium 8.6 Corrected Calcium 8.8 Phosphorus 4.7 Magnesium 2.7 H Total Bilirubin 0.3 AST 18 ALT 12 Alkaline Phosphatase 85 Ammonia Total Creatine Kinase Total Protein 6.6 Albumin 3.7 Globulin 2.9 Albumin/Globulin Ratio 1.3 Triglycerides 90 Cholesterol 116 L LDL Cholesterol, Calc 64 HDL Cholesterol 34 L Cholesterol/HDL Ratio 3.4 L TSH 1.59 Free T4 0.90 PTH Intact Ur Collection Type Urine Color Urine Clarity Urine pH Ur Specific [place] Urine Protein Urine Glucose (UA) Urine Ketones Urine Blood Urine Nitrite Urine Bilirubin Urine Urobilinogen (Auto) Ur Leukocyte Esterase Urine RBC Urine WBC Ur Squamous Epith Cells Urine Bacteria Urine Yeast (Budding) Ur Culture Indicated? Ur Random Creatinine U Random Total Protein Ur Random Sodium Urine Opiates Screen Urine Fentanyl Screen Ur Barbiturates Screen U Amphetamin/Meth Scrn U Benzodiazepines Scrn U Cocaine Metab Screen U Marijuana (THC) Screen Influenza A (Rapid) Negative Influenza B (Rapid) Negative Blood Type O Positive Antibody Screen NEGATIVE Blood Bank Wristband ID Yes Quality Measures Quality Measures VTE prophylaxis Assessment & Plan Assessment Current Active Medications: Generic Name Dose Route Start Last Admin Trade Name Freq PRN Reason Stop Dose Admin Acetaminophen 650 mg 05/16/25 10:21 Acetaminophen 325 Mg Tablet PO 06/15/25 10:20 Q6H PRN Fever >100.4 or pain Diphenhydramine HCl 12.5 mg 05/16/25 17:28 05/16/25 20:25 Diphenhydramine Inj 50 Mg/Ml Vial IVP 06/15/25 17:27 12.5 mg X1 PRN Administration Prior to CT imaging Lactated Ringer's 1,000 mls @ 75 mls/hr 05/16/25 10:48 05/16/25 13:24 Lactated Ringers IV 06/15/25 10:47 75 mls/hr .[id number] SHADY Administration Ondansetron HCl 4 mg 05/16/25 10:21 Ondansetron Inj 2 Mg/Ml Inj 2 Ml IVP 06/15/25 10:20 Q6H PRN NAUSEA OR VOMITING Protocol Pantoprazole Sodium 40 mg 05/17/25 09:00 Pantoprazole Inj 40 Mg Vial IVP 06/16/25 08:59 QDAY SHADY Plan Mr. Meade is a 64M with unknown past medical history presents for ground level fall. Pt is a poor historian, history obtained from at bedside. Pt denies midline tenderness, neck or head injury. Pt has a chorea-like repetitive movement at baseline, which the states started a few weeks ago. US Bladder shows a bladder mass with bilateral hydronephrosis. Admitted for CORINA with creatinine of 6.2. Per urology patient needed bilateral nephrostomy tubes placed unfortunately one of the tubes was dislodged, patient now has nephrostomy tube present only on the right side. Pending urology eval on Tuesday continue to monitor for signs of urinary retention consider suprapubic catheter #CORINA vs ESRD Classification Counselor 6.2. BUN 92. eGFR 10. Bilateral hydronephrosis with bladder mass on US. - Urology consult - Nephrology consult, appreciate recs - possible IR dialysis catherter insertion - strict I/O - renal dose medication - Daily CMP, trend electrolyte. #bladder mass Solid nodule bladder wall measuring 2.8 x 1.9 x 1.4cm - pending urology consult #chorea-like movement - Concern for brain metastases -Recommend brain MRI, if patient movements allow - Oncology consulted: Dr. Carrion, appreciate recs #Anemia Hgb 8.8, like due to renal failure - daily CBC, if falls below 7, consider blood transfusion - consider EPO, iron panel. #Hyperparathyroidism PTH 370.5. Ca 8.6 likely secondary to renal failure Dispo: Pending evaluation with urology for bladder mass and hydronephrosis, status post nephrostomy tubes bilaterally with left nephrostomy tube out. DVT prophylaxis: SCDs GI prophylaxis: Protonix 40 IV Diet: Renal diet Lines: Peripheral IV, viveros catheter, nephrostomy tubes Code status: Full code Case discussed with my senior resident Dr. Rojas Case discussed with my attending Dr. Ryan Varela MD PGY-1 Attending Provider Attestation/Addendum Margie Sutherland, , attest that I was physically present for the wallace portions of the service and evaluated the patient with the resident and I reviewed and discussed the case with the resident and agree with the resident's findings and plans of care as documented above Patient seen and eval this a.m. No acute events overnight. Patient was able to undergo CT abdomen and pelvis overnight which showed Extensive abdominal and pelvic lymphadenopathy, obvious bilateral hydronephrosis and distended urinary bladder, marked irregular bladder wall thickening especially posteriorly consistent with bladder cancer. Case was discussed with nephrology and urology. Will order lymph node biopsy, as well as nephrostomy tube placement. Renal function appears unchanged. However, there appears to be minimal renal parenchyma due to advanced bilateral hydronephrosis. Explained to and son at bedside findings of CT and concern for bladder malignancy. Oncology was consulted as well. Patient continues to have some involuntary movements, concerning for possible metastatic disease that has spread to the brain. However, patient is unable to sit still. Will consider ordering MRI once patient undergoes nephrostomy and IR procedures today. Viveros catheter continues to drain occasional bloody urine output. Viveros is not to be irrigated unless clotted off by blood per urology recommendations. In the afternoon, left nephrostomy tube did fall out on accident. Discussed with urology over the phone and updated. Will place new nephrostomy tube on Tuesday. Right nephrostomy tube functioning well with copper colored dark urine.
--- NOTE | 2025-05-17 09:37 | PC.SS ---
Patient Amarjit Meade is a 64 Year old male admitted for CORINA. SS met with patient and patient's , Marisabel Meade at bedside to discuss discharge plan and verify demographic information. Patient reports he lives at home with his who is his surrogate decision maker, [phone]. Patient reports he does not utilize any source of DME to assist with ambulation. Patient is able to complete all ADL's independently. [facility] Patient is recently retired. At time of discharge patient's will provide transportation home. Next of kin: , Marisabel Meade Discharge Plan: Home
--- NOTE | 2025-05-17 09:37 | PD.RESPRO ---
Documentation for date of: 05/17/25 Subjective Subjective Interval history: Amarjit Meade is a 62-year-old male with no past medical history presented for mechanical fall at work. States that he fell forward because his lower back has been giving out for the past few months. He has also been having chorea-like, jerky movements for the past few months and is supposed to see neurology but is having insurance issues. Has not seen a physician in many years. Per , patient has been having enuresis for the past few weeks and claims patient is stubborn and does not want to see a physician. Patient's urine is normally green due to vitamin supplements. Patient admits that he does not drink very much water nor does he urinate very much. Denies pain on urination, increase in urinary urgency, frequency or hesitancy, interrupted stream, any history of prostate issues, flank pain, or recent weight loss. Denies fever, chills, shortness of breath or chest pain. Denies family history of any kidney disease or dialysis. 05/17/25: No acute overnight events. Patient seen and examined at bedside with . No new complaints. Denies chest pain, SOB or fever. Had viveros inserted yesterday with kristofer blood on insertion. CT abd pelvis showed advanced b/l hydronephrosis, extensive abdominal and pelvic lymphadenopathy, distended urinary bladder with marked irregular bladder wall thickening, enzo posteriorly most consistent with bladder cancer. Bicarb 18, BUN still elevated 84, Cr still elevated 6.4, GFR 9, Mg high 2.7. Exam Vital Signs Temp Pulse Resp BP Pulse Ox O2 Del Method O2 Flow Rate 97.4 F 69 16 148/78 H 97 Nasal Cannula 3 05/17/25 07:29 05/17/25 07:29 05/17/25 07:29 05/17/25 07:29 05/17/25 07:29 05/17/25 07:05/16/25 15:15 Narrative Exam General: AOx3, thin, older than stated age, no acute distress, chorea-like movements present HEENT: NC/AT, mucous membranes dry, bilateral sclera anicteric Cardiovascular: regular rate and rhythm, S1/S2 present, no murmurs appreciated Pulmonary: clear to auscultation bilaterally, no rales/rhonchi/wheezes Abdominal: soft, non-tender, non-distended, no rebound/guarding, bowel sounds present Extremities: no peripheral edema Skin: warm and dry, intact, no rashes Neuro CN II-XII grossly intact, no focal deficits, alert, following commands Objective Labs 05/19/25 04:37 05/19/25 04:37 Labs: Laboratory Results - last 24 hr 05/16/25 05/16/25 05/16/25 10:17 17:30 17:40 WBC RBC Hgb 8.7 L Hct 26.6 L MCV MCH MCHC RDW Std Deviation Plt Count Neut % (Auto) Lymph % (Auto) [place] % (Auto) Eos % (Auto) Baso % (Auto) Neut # (Auto) Lymph # (Auto) [place] # (Auto) Eos # (Auto) Baso # (Auto) Immature Gran # (Auto) Absolute Nucleated RBC Immature Gran % Nucleated RBC % PT INR APTT 29.5 Sodium Potassium Chloride Carbon Dioxide Anion Gap BUN Creatinine Estim Creat Clear Calc eGFR BUN/Creatinine Ratio Glucose Estimated Ave Glu mg/dL Hemoglobin A1c Calculated Osmolality Lactic Acid 0.5 Calcium Corrected Calcium Phosphorus 5.2 H Magnesium 1.6 Total Bilirubin AST ALT Alkaline Phosphatase Ammonia 17 Total Creatine Kinase 323 H Total Protein Albumin Globulin Albumin/Globulin Ratio Triglycerides Cholesterol LDL Cholesterol, Calc HDL Cholesterol Cholesterol/HDL Ratio TSH Free T4 PTH Intact 370.5 H Ur Collection Type Clean Catch Urine Color Dark-Red Urine Clarity Bloody A Urine pH 7.5 H Ur Specific [place] 1.021 Urine Protein 3+ A Urine Glucose (UA) 1+ A Urine Ketones Negative Urine Blood 3+ A Urine Nitrite Negative Urine Bilirubin Negative Urine Urobilinogen (Auto) Negative Ur Leukocyte Esterase Positive Urine RBC [id number] H Urine WBC 129 H Ur Squamous Epith Cells 0 Urine Bacteria None Urine Yeast (Budding) Present A Ur Culture Indicated? Yes Ur Random Creatinine 38 U Random Total Protein 1832 H Ur Random Sodium 105.0 Urine Opiates Screen Negative Urine Fentanyl Screen Negative Ur Barbiturates Screen Negative U Amphetamin/Meth Scrn Negative U Benzodiazepines Scrn Negative U Cocaine Metab Screen Negative U Marijuana (THC) Screen Negative Influenza A (Rapid) Influenza B (Rapid) Blood Type O Positive Antibody Screen NEGATIVE Blood Bank Wristband ID Yes 05/16/25 05/17/25 22:00 05:27 WBC 10.4 RBC 2.87 L Hgb 8.7 L Hct 26.9 L MCV 94 MCH 30.3 MCHC 32.3 RDW Std Deviation 46.2 H Plt Count 296 Neut % (Auto) 84 H Lymph % (Auto) 8 L [place] % (Auto) 6 Eos % (Auto) 1 Baso % (Auto) 0 Neut # (Auto) 8.7 H Lymph # (Auto) 0.8 L [place] # (Auto) 0.6 Eos # (Auto) 0.2 Baso # (Auto) 0.0 Immature Gran # (Auto) 0.04 H Absolute Nucleated RBC 0.00 Immature Gran % 0 Nucleated RBC % 0 PT 11.1 INR 1.0 APTT 31.8 Sodium 138 Potassium 4.0 Chloride 106 Carbon Dioxide 18.6 L Anion Gap 13 BUN 84 H Creatinine 6.4 H* Estim Creat Clear Calc 10.9 L eGFR 9 L* BUN/Creatinine Ratio 13 Glucose [address] Glu mg/dL 100 Hemoglobin A1c 5.1 Calculated Osmolality 301 H Lactic Acid Calcium 8.6 Corrected Calcium 8.8 Phosphorus 4.7 Magnesium 2.7 H Total Bilirubin 0.3 AST 18 ALT 12 Alkaline Phosphatase 85 Ammonia Total Creatine Kinase Total Protein 6.6 Albumin 3.7 Globulin 2.9 Albumin/Globulin Ratio 1.3 Triglycerides 90 Cholesterol 116 L LDL Cholesterol, Calc 64 HDL Cholesterol 34 L Cholesterol/HDL Ratio 3.4 L TSH 1.59 Free T4 0.90 PTH Intact Ur Collection Type Urine Color Urine Clarity Urine pH Ur Specific [place] Urine Protein Urine Glucose (UA) Urine Ketones Urine Blood Urine Nitrite Urine Bilirubin Urine Urobilinogen (Auto) Ur Leukocyte Esterase Urine RBC Urine WBC Ur Squamous Epith Cells Urine Bacteria Urine Yeast (Budding) Ur Culture Indicated? Ur Random Creatinine U Random Total Protein Ur Random Sodium Urine Opiates Screen Urine Fentanyl Screen Ur Barbiturates Screen U Amphetamin/Meth Scrn U Benzodiazepines Scrn U Cocaine Metab Screen U Marijuana (THC) Screen Influenza A (Rapid) Negative Influenza B (Rapid) Negative Blood Type Antibody Screen Blood Bank Wristband ID Quality Measures Quality Measures VTE prophylaxis Assessment & Plan Assessment Current Active Medications: Generic Name Dose Route Start Last Admin Trade Name Freq PRN Reason Stop Dose Admin Acetaminophen 650 mg 05/16/25 10:21 Acetaminophen 325 Mg Tablet PO 06/15/25 10:20 Q6H PRN Fever >100.4 or pain Lactated Ringer's 1,000 mls @ 75 mls/hr 05/16/25 10:48 05/16/25 13:24 Lactated Ringers IV 06/15/25 10:47 75 mls/hr .[id number] SHADY Administration Ondansetron HCl 4 mg 05/16/25 10:21 Ondansetron Inj 2 Mg/Ml Inj 2 Ml IVP 06/15/25 10:20 Q6H PRN NAUSEA OR VOMITING Protocol Pantoprazole Sodium 40 mg 05/17/25 09:00 05/17/25 08:39 Pantoprazole Inj 40 Mg Vial IVP 06/16/25 08:59 40 mg QDAY SHADY Administration Plan Amarjit Meade is a 62-year-old male with no past medical history presented for mechanical fall at work due to chorea-like movements, found to have Cr 6.2 and BUN 92 with bladder mass and advanced hydronephrosis. #Obstructive uropathy 2/2 bladder mass causing #Bilateral hydronephrosis #CORINA Patient has no past medical history, history of kidney disease or any recent lab values to compare. ~30 pack year smoking hx, quit 04/2025. Reports new enuresis for the past few weeks and jerky movements for a few months, latter likely metastasis to brain from bladder cancer. Uremic origin less likely due to lack of confusion and asterixis. On admission, creatinine 6.2, BUN 92, GFR 10, CK 323, ammonia 17, lactic acid 0.5. Ddx includes obstrutive uropathy from bladder cancer causing CORINA vs CKD. Without baseline, difficult to determine. Renal US shows advanced bilateral hydronephrosis, solid nodule bladder wall 2.8x1.9x1.4 cm, and bladder prevoid volume ~900cc. CT abd pelvis showed advanced b/l hydronephrosis, extensive abdominal and pelvic lymphadenopathy, distended urinary bladder with marked irregular bladder wall thickening, enzo posteriorly most consistent with bladder cancer. UDS negative, Uprotein 1800, UA bloody, 3+ protein, 3+ blood, +LE, >100k RBC, 120 WBC, +yeast Viveros inserted 05/16, producing 900 mL of bloody urine and good urinary output. BUN and Cr not improving with Viveros. Plan: -Viveros in place with hematuria -Urology consulted, recs appreciated -IR Nephrostomy ordered -Recommend biopsy of lymph node -Recommend brain MRI, if patient movements allow #Normocytic anemia #Hyperparathyroidism -Management per primary team. Plan of care discussed with attending Dr. Santana. Joanna Matamoros, PGY-1 Internal Medicine Attending Provider Attestation/Addendum Patient seen and examined with resident physician Dr. Matamoros. Note reviewed, agree with findings and recommendations. Patient currently seen in ER. Son at bedside. over the phone. Patient seems to be doing poorly for the last couple of months with involuntary movements. Did not seek medical attention. Have not seen a doctor for some time. patient admits to taking vitamins which is making his urine green. Take some ibuprofen as needed. Admitted with CORINA. Workup showed he has a bladder mass with bilateral hydronephrosis. Spoke to Dr. Hernandez-will come and see the patient tomorrow. Recommended Viveros catheter and once the Viveros was placed in more than 900 mL urine came out. Was bloody. Dr. Hernandez recommended to continue watchful waiting. No bladder irritation. At this point we will hold off on dialysis and biopsy. Suspect severe obstructive uropathy. 05/17/2025 CAT scan showed extensive bilateral hydronephrosis. Bilateral percutaneous nephrostomy tube placements ordered. Pending Davdi recommendations. patient seems to have a chronic hydronephrosis for possibly few months. doubt there is any salvageable kidney. Had a long conversation with the -if no improvement in the renal function-he might need temporary dialysis. Pending biopsy of the lymph node in the abdomen.
[2025-05-17] MEDS: RINGERS LACTATED 1000 ML 1,000 ML 75 ML IV ×2 (09:39→23:13)
--- NOTE | 2025-05-17 09:45 | XR_ITS ---
Examination: IR fluoroscopically guided placement left nephrostomy drainage catheter Fluoroscopy AP abdomen single view Ultrasound-guided needle access left renal collecting system Left nephrostogram Date and time: May 17, 2025 1054 hours INDICATIONS: Severe bilateral hydronephrosis on CT abdomen pelvis May 16, 2025 TECHNIQUE AND FINDINGS: Informed consent provided. Timeout performed. Skin prepped over the left flank and sterile drape applied hand hygiene ultrasound sterile technique 1% lidocaine administered for local anesthesia Utilizing ultrasonographic guidance, visualization of dilated left renal collecting system Utilizing ultrasonographic guidance 21-gauge needle placement into the dilated left renal collecting system with successful passage of a 0.18 wire guide through the needle into the left calyceal system 5 Jordanian catheter placed over the wire guide 0.35 wire guide is introduced through the 5 Jordanian catheter followed by dilators and a 10 Jordanian 25 cm nephrostomy drainage tube in proper position with injection 10 cc Cystografin Estimated blood loss 2 cc IMPRESSION: Successful fluoroscopically guided placement left nephrostomy drainage tube Successful ultrasound-guided needle access left renal collecting system Fluoroscopy 1.2 minutes radiation dose 10.69 milligray 1 spot fluoroscopic abdomen films Left nephrostogram demonstrates satisfactory position nephrostomy drainage catheter
--- NOTE | 2025-05-17 09:53 | ESCONSULT_ITS ---
HPI Data of Consult Consult date: 05/17/25 Requesting Physician: Margie Davis DO Primary Care Provider: Physician No Primary/Family Consult Narrative Reason for consult: Suspected bladder malignancy History of present illness: 64-year-old gentleman who fell while at work, experiencing antonio jerking-like movements over the past few months and also due to some back issues but not having seen a doctors in recent months. Various imaging studies revealed no obvious damage in CT of the brain and neck though limited by patient motion, abdomen pelvis CT revealed extensive abdominal pelvic lymphadenopathy advanced bilateral hydronephrosis and distended urinary bladder with marked irregular bladder wall thickening. CBC revealed anemia of 8.8 hemoglobin, with creatinine 6.2 EGFR 10 BUN 92. LFTs unremarkable. UA revealed bloody urine with 3+ greater than 12,000 RBCs with 129 WBCs, urine random protein 1832. Renal ultrasound revealed bladder mass and advanced hydronephrosis. Urology and nephrology consultation has been requested. Patient now referred for oncological consultation. cc:: cc: Margie Davis DO Past Medical History Social History SOCIAL: Worked at [employer] former smoker denies substance abuse Past Medical History Comments PMH COMMENT: Prior UTI Meds Home Medications and Allergies Allergies Allergy/AdvReac Type Severity Reaction Status Date / Time No Known Allergies Allergy Verified 06/15/18 21:22 Exam Vital Signs Temp Pulse Resp BP Pulse Ox O2 Del Method O2 Flow Rate 97.4 F 73 16 148/78 H 97 Nasal Cannula 3 05/17/25 07:29 05/17/25 08:00 05/17/25 07:29 05/17/25 07:29 05/17/25 07:29 05/17/25 07:29 05/16/25 15:15 Narrative Exam Appearing comfortable in no acute distress Results Labs 05/17/25 05:27 05/17/25 05:27 Labs: Short CBC 05/16/25 05/17/25 Range/Units 17:40 05:27 WBC 10.4 (3.8-10.6) Thou/mm3 Hgb 8.7 L 8.7 L (13.5-16.0) g/dL Hct 26.6 L 26.9 L (41.0-53.0) % Plt Count 296 (140-440) Thou/mm3 BMP 05/17/25 05:27 Sodium 138 Potassium 4.0 Chloride 106 Carbon Dioxide 18.6 L BUN 84 H Creatinine 6.4 H* Glucose 107 H Calcium 8.6 Cardiac Enzymes 05/16/25 Range/Units 10:17 Total Creatine Kinase 323 H (34-171) U/L Liver Function 05/17/25 Range/Units 05:27 Total Bilirubin 0.3 (0.3-1.2) mg/dL AST 18 (0-34) U/L ALT 12 (10-49) U/L Alkaline Phosphatase 85 (46-116) U/L Albumin 3.7 (3.4-4.8) gm/dL Urine 05/16/25 Range/Units 17:30 Urine Color Dark-Red (Lt Yel-Yel) Urine Clarity Bloody A (Clear/Hazy) Urine pH 7.5 H (5.0-7.0) Ur Specific [place] 1.021 (1.001-1.035) Urine Protein 3+ A (Neg - Trace) Urine Glucose (UA) 1+ A (Negative) Assessment and Plan Additional Assessment & Plan Additional Plan: 1. Admitted following fall CT showing extensive abdominal pelvic lymphadenopathy, advanced bilateral hydronephrosis and irregular thickened posterior bladder wall. 2. Significant hematuria with renal failure. Urology and nephrology consulted. 3. CT of brain without contrast severely limited due to motion. MRI of the brain with contrast will be helpful once patient's condition stabilized. Tumor markers PSA CEA CA 19?9 recommended. Will follow.
--- NOTE | 2025-05-17 10:23 | PD.ONCCONS ---
HPI Data of Consult Requesting Physician: Margie Davis DO Primary Care Provider: Physician No Primary/Family Consult Narrative cc:: cc: Margie Davis, DO Meds Home Medications and Allergies Home Medications ?Medication ?Instructions ?Recorded ?Confirmed ?Type No Known Home Medications 05/19/25 05/19/25 History Allergies Allergy/AdvReac Type Severity Reaction Status Date / Time No Known Allergies Allergy Verified 06/15/18 21:22 Exam Vital Signs Temp Pulse Resp BP Pulse Ox O2 Del Method O2 Flow Rate 97.8 F 70 17 137/71 H 98 Room Air 3 05/17/25 10:12 05/17/25 10:12 05/17/25 10:12 05/17/25 10:12 05/17/25 10:12 05/17/25 10:12 05/16/25 15:15 Results Labs 05/27/25 06:14 05/27/25 06:14 Labs: Short CBC 05/16/25 05/17/25 Range/Units 17:40 05:27 WBC 10.4 (3.8-10.6) Thou/mm3 Hgb 8.7 L 8.7 L (13.5-16.0) g/dL Hct 26.6 L 26.9 L (41.0-53.0) % Plt Count 296 (140-440) Thou/mm3 BMP 05/17/25 05:27 Sodium 138 Potassium 4.0 Chloride 106 Carbon Dioxide 18.6 L BUN 84 H Creatinine 6.4 H* Glucose 107 H Calcium 8.6 Cardiac Enzymes 05/16/25 Range/Units 10:17 Total Creatine Kinase 323 H (34-171) U/L Liver Function 05/17/25 Range/Units 05:27 Total Bilirubin 0.3 (0.3-1.2) mg/dL AST 18 (0-34) U/L ALT 12 (10-49) U/L Alkaline Phosphatase 85 (46-116) U/L Albumin 3.7 (3.4-4.8) gm/dL Urine 05/16/25 Range/Units 17:30 Urine Color Dark-Red (Lt Yel-Yel) Urine Clarity Bloody A (Clear/Hazy) Urine pH 7.5 H (5.0-7.0) Ur Specific [place] 1.021 (1.001-1.035) Urine Protein 3+ A (Neg - Trace) Urine Glucose (UA) 1+ A (Negative)
[2025-05-17] MEDS: fentaNYL CIT INJ 50 mCg/ML AMP 2ML IVP ×2 (10:50→11:48)
[2025-05-17] MEDS: HEPARIN SOD LOCK SYR 100 UNIT/ML 500 UNIT STFIELD (11:30)
--- NOTE | 2025-05-17 11:30 | XR_ITS ---
Examination: Fluoroscopically guided IR placement right nephrostomy drainage tube Fluoroscopy Ultrasound-guided renal access right renal collecting system Right nephrostogram Date and time: May 17, 2025 1151 hours INDICATIONS: Severe bilateral hydronephrosis on CT examination May 16, 2025 TECHNIQUE AND FINDINGS: Number: Consent provided. Skin prepped over the right flank and sterile drape applied hand hygiene ultrasound sterile technique 1% lidocaine administered for local anesthesia. Utilizing ultrasonographic guidance visualization of the dilated right renal collecting system Utilizing ultrasonographic guidance 21-gauge successful needle puncture into the renal collecting system with placement is 0.18 wire guide into the calyces and ureter Ultrasound images recorded and stored 5 Burmese catheter placed over the wire guide 0.35 wire guide placed through the catheter followed by dilators and a 10 Burmese 25 cm nephrostomy drainage tube Tube is in proper position with injection 10 cc Cystografin Estimated blood loss 2 cc IMPRESSION: Successful fluoroscopically guided IR placement right nephrostomy drainage tube Fluoroscopy 1.2 minutes radiation dose 10.69 milligray 1 spot fluoroscopic abdomen films Successful ultrasound-guided renal access right renal collecting system Right nephrostogram stent demonstrates satisfactory position of the nephrostomy drainage catheter
[2025-05-17] MEDS: LIDOCAINE INJ PF 1% 30 ML VIAL 10 ML INFL (11:49)
--- NOTE | 2025-05-17 14:22 | PC.SS ---
SS follow up note; Pending Nephrology tube placement, pending Biopsy, patient will discharge home when medically cleared.
--- NOTE | 2025-05-17 15:47 | PC.NURSE ---
RN was notified by [facility] that the pts left nephrostomy tube came out and was laying on the bed. Dr castillo was notified and is at pt bedside now.
[2025-05-17 16:31] LABS: Hematocrit 26.1 % (41.0-53.0); Hemoglobin 8.9 g/dL (13.5-16.0)
[2025-05-18] VITALS (29 sets, daily range): BP systolic 110–168; BP diastolic 68–85; PULSE 79–95; RESP 9–26; TEMP 36.1–37.1; O2SAT 94–100; BMI 17.6
--- NOTE | 2025-05-18 01:57 | ESCONSULT_ITS ---
RE: ERIC LONGORIA : 1960 DATE OF CONSULTATION: 05/17/2025 The patient is seen, chart is reviewed. Consult is dictated. ESTABLISHED DIAGNOSES: 1. Acute kidney injury versus end-stage renal disease with creatinine of 6.2, BUN 92, GFR is 10. 2. Bilateral hydronephrosis with possible bladder mass on ultrasound. 3. Choria-like movements. 4. Anemia with hemoglobin of 8.8. 5. Hyperparathyroidism. PTH is 370.5, calcium 8.6 secondary to renal failure possible. CHIEF COMPLAINT: 1. Gross hematuria. 2. Bilateral hydronephrosis. HISTORY OF PRESENT ILLNESS: This is a 64-year-old gentleman, he is admitted in the hospital because of fall at work on the ground. There was no history of loss of consciousness, syncope, or heart palpitation prior to the fall. The patient is a poor historian with slurred speech. History is obtained only from the at his bedside. Prior to coming to the hospital, he denies any prostatic problem. He had urinary tract infection back in 2018. He denies any hematuria before. No history of bleeding diastasis. He denies any prostatic surgery. He currently is not on any medication for his prostate gland. Past medical history, family history, review of the system, personal history, please refer to the patient's history form dated 05/16/2025. It is in HPI in EMR. PHYSICAL EXAMINATION: General: Condition malnourished. Not in acute distress. Orientation x3. HEENT: Normocephalic and atraumatic. . The patient seems anemic and sclera non icteric. Heart: Regular rate and rhythm. Abdomen: No masses. Has indwelling Araiza catheter and bilateral percutaneous nephrostomies. VARIOUS LABS: His WBC is 9.5, hemoglobin is 8.8, probably as a result of CORINA. Hematocrit is 26.6. His serum sodium is 143, potassium is 4.4, BUN is 92, creatinine is 6.2. CAT scan revealed high-grade obstruction, bilateral, very thin parenchyma. RECOMMENDATION: At this time is, 1. Placement of percutaneous nephrostomy and he has indwelling Araiza catheter, urine is getting clear. Irrigate Araiza catheter only if he has a clot retention. 2. At this time, the patient is not a good candidate for any surgical intervention and I will reevaluate him again once patient is stable I will schedule him for cystoscopic examination. Since the patient has a bladder mass, there is a possibility that it is obstructing both ureters. I may not be able to see the ureteral orifice. RECOMMENDATIONS: Repeat his ultrasound of the kidneys in 1 week. My recommendation will also be to repeat CAT scan with stone protocol in 1 week's time. All above issues were discussed with his in detail and I answered their questions to their satisfaction. DT: 17:16:07 TT: 18:44:00 Ref: [id number] - TID: [id number] MTDD
--- NOTE | 2025-05-18 02:20 | PC.NURSE ---
blood clot in viveros cath tubing- Irrigated viveros cath with ns, blood clot string in viveros cath tubing came out. Large blood clot on viveros bag- Changed viveros bag only to new one.
[2025-05-18] MEDS: ACETAMINOPHEN 325 MG TABLET 650 MG PO ×2 (02:23→08:38)
--- NOTE | 2025-05-18 02:50 | PC.NURSE ---
no urine coming out from viveros cath after irrigated with ns- Irrigated ivveros cath the 2nd time and blood clot string from viveros cath tubing came out. Still no urine output. Bladder scan done= 418ml.
[2025-05-18 06:01] LABS: Basophils # (Auto) 0.0 Thou/mm3 (0.0-0.2); Basophils % (Auto) 0 % (0-2.5); Eosinophils # (Auto) 0.0 Thou/mm3 (0.0-0.5); Eosinophils % (Auto) 0 % (0-10); Hematocrit 28.5 % (41.0-53.0); Hemoglobin 9.3 g/dL (13.5-16.0); Immature Granulocytes Auto 0.10 Thou/mm3 (0.00-0.00); Lymphocytes # (Auto) 0.4 Thou/mm3 (1.0-4.8); Lymphocytes % (Auto) 3 % (10-50); Mean Corpuscular HGB Conc 32.6 g/dl (31.0-37.0); Mean Corpuscular Hemoglobin 30.8 pg (25.0-35.0); Mean Corpuscular Volume 94 fL (80-100); Monocytes # (Auto) 0.6 Thou/mm3 (0.0-0.8); Monocytes % (Auto) 4 % (0-12); Neutrophils # (Auto) 15.6 Thou/mm3 (1.8-7.7); Neutrophils % (Auto) 93 % (37-80); Nucleated Red Blood Cell # 0.00 Thou/mm3 (0.00-0.00); Nucleated Red Blood Cell % 0 /100 WBC (0); Platelet Count 293 Thou/mm3 (140-440); RDW Standard Deviation 45.8 fL (35.1-43.9); Red Blood Count 3.02 Miln/mm3 (4.50-5.90); White Blood Count 16.8 Thou/mm3 (3.8-10.6)
[2025-05-18 06:27] LABS: Alanine Aminotransferase 11 U/L (10-49); Albumin, Serum 3.7 gm/dL (3.4-4.8); Albumin/Globulin Ratio 1.3 (1.2-2.2); Alkaline Phosphatase 84 U/L (46-116); Anion Gap 14 (7-16); Aspartate Amino Transferase 13 U/L (0-34); BUN/Creatinine Ratio 11 Ratio (12-20); Bilirubin,Total 0.3 mg/dL (0.3-1.2); Blood Urea Nitrogen 86 mg/dL (9-23); Calcium 8.6 mg/dL (8.3-10.6); Calcium (Corrected) 8.8 mg/dL (8.5-10.1); Carbon Dioxide 18.0 mMol/L (20.0-31.0); Chloride 104 mMol/L (98-107); Creatinine (Component) 7.5 mg/dL (0.6-1.3); Estimated Creatinine Clearance 9.3 mL/min (>60); Globulin 2.9 gm/dL (2.3-3.5); Glucose 142 mg/dL (74-106); Magnesium 1.9 mg/dL (1.6-2.6); Osmolality,Calculated 300 (275-295); Phosphorous 4.5 mg/dL (2.4-5.1); Potassium 4.3 mMol/L (3.4-5.1); Sodium 136 mMol/L (136-145); Total Protein 6.6 gm/dL (5.7-8.2); eGFR 8 See Note
--- NOTE | 2025-05-18 07:48 | PC.NURSE ---
Made MD templeton aware of morning VS bp at 168/105-68HR. No new orders received at this time.
--- NOTE | 2025-05-18 08:01 | PD.RESPRO ---
Documentation for date of: 05/18/25 Subjective Subjective Interval history: Amarjit Meade is a 62-year-old male with no past medical history presented for mechanical fall at work. States that he fell forward because his lower back has been giving out for the past few months. He has also been having chorea-like, jerky movements for the past few months and is supposed to see neurology but is having insurance issues. Has not seen a physician in many years. Per , patient has been having enuresis for the past few weeks and claims patient is stubborn and does not want to see a physician. Patient's urine is normally green due to vitamin supplements. Patient admits that he does not drink very much water nor does he urinate very much. Denies pain on urination, increase in urinary urgency, frequency or hesitancy, interrupted stream, any history of prostate issues, flank pain, or recent weight loss. Denies fever, chills, shortness of breath or chest pain. Denies family history of any kidney disease or dialysis. 05/17/25: No acute overnight events. Patient seen and examined at bedside with . No new complaints. Denies chest pain, SOB or fever. Had viveros inserted yesterday with kristofer blood on insertion. CT abd pelvis showed advanced b/l hydronephrosis, extensive abdominal and pelvic lymphadenopathy, distended urinary bladder with marked irregular bladder wall thickening, enzo posteriorly most consistent with bladder cancer. Bicarb 18, BUN still elevated 84, Cr still elevated 6.4, GFR 9, Mg high 2.7. 05/18/25: No acute overnight events. Patient seen and examined at bedside with . Vitals and labs reviewed. Plan to start hemodialysis today given no improvement with nephrostomy tubes or viveros. Lymph node biopsy not able to be completed due to LN's being too small. No new complaints. Denies chest pain, SOB or fever. Exam Vital Signs Temp Pulse Resp BP Pulse Ox O2 Del Method O2 Flow Rate 98.1 F 86 19 149/83 H 98 Room Air 3 05/18/25 04:00 05/18/25 04:30 05/18/25 04:00 05/18/25 04:00 05/18/25 04:00 05/18/25 04:00 05/17/25 11:00 Narrative Exam General: AOx3, thin, older than stated age, no acute distress, chorea-like movements present HEENT: NC/AT, mucous membranes dry, bilateral sclera anicteric Cardiovascular: regular rate and rhythm, S1/S2 present, no murmurs appreciated Pulmonary: clear to auscultation bilaterally, no rales/rhonchi/wheezes Abdominal: soft, non-tender, non-distended, no rebound/guarding, bowel sounds present Extremities: no peripheral edema Skin: warm and dry, intact, no rashes Neuro CN II-XII grossly intact, no focal deficits, alert, following commands Objective Labs 05/19/25 04:37 05/19/25 04:37 Labs: Laboratory Results - last 24 hr 05/17/25 05/18/25 16:16 04:42 WBC 16.8 H D RBC 3.02 L Hgb 8.9 L 9.3 L Hct 26.1 L 28.5 L MCV 94 MCH 30.8 MCHC 32.6 RDW Std Deviation 45.8 H Plt Count 293 Neut % (Auto) 93 H Lymph % (Auto) 3 L [place] % (Auto) 4 Eos % (Auto) 0 Baso % (Auto) 0 Neut # (Auto) 15.6 H Lymph # (Auto) 0.4 L [place] # (Auto) 0.6 Eos # (Auto) 0.0 Baso # (Auto) 0.0 Immature Gran # (Auto) 0.10 H Absolute Nucleated RBC 0.00 Immature Gran % 1 H Nucleated RBC % 0 Sodium 136 Potassium 4.3 Chloride 104 Carbon Dioxide 18.0 L Anion Gap 14 BUN 86 H Creatinine 7.5 H* D Estim Creat Clear Calc 9.3 L eGFR 8 L* BUN/Creatinine Ratio 11 L Glucose 142 H Calculated Osmolality 300 H Calcium 8.6 Corrected Calcium 8.8 Phosphorus 4.5 Magnesium 1.9 Total Bilirubin 0.3 AST 13 ALT 11 Alkaline Phosphatase 84 Total Protein 6.6 Albumin 3.7 Globulin 2.9 Albumin/Globulin Ratio 1.3 Quality Measures Quality Measures VTE prophylaxis Assessment & Plan Assessment Current Active Medications: Generic Name Dose Route Start Last Admin Trade Name Freq PRN Reason Stop Dose Admin Acetaminophen 650 mg 05/16/25 10:21 05/18/25 02:23 Acetaminophen 325 Mg Tablet PO 06/15/25 10:20 650 mg Q6H PRN Administration Fever >100.4 or pain Lactated Ringer's 1,000 mls @ 75 mls/hr 05/16/25 10:48 05/17/25 23:13 Lactated Ringers IV 06/15/25 10:47 75 mls/hr .[id number] SHADY Administration Ondansetron HCl 4 mg 05/16/25 10:21 Ondansetron Inj 2 Mg/Ml Inj 2 Ml IVP 06/15/25 10:20 Q6H PRN NAUSEA OR VOMITING Protocol Pantoprazole Sodium 40 mg 05/17/25 09:00 05/17/25 08:39 Pantoprazole Inj 40 Mg Vial IVP 06/16/25 08:59 40 mg QDAY SHADY Administration Plan Amarjit Meade is a 62-year-old male with no past medical history presented for mechanical fall at work due to chorea-like movements, found to have Cr 6.2 and BUN 92 with bladder mass and advanced hydronephrosis. #Obstructive uropathy 2/2 bladder mass causing #Bilateral hydronephrosis #CORINA Patient has no past medical history, history of kidney disease or any recent lab values to compare. ~30 pack year smoking hx, quit 04/2025. Reports new enuresis for the past few weeks and jerky movements for a few months, latter likely metastasis to brain from bladder cancer. Uremic origin less likely due to lack of confusion and asterixis. On admission, creatinine 6.2, BUN 92, GFR 10, CK 323, ammonia 17, lactic acid 0.5. Ddx includes obstrutive uropathy from bladder cancer causing CORINA vs CKD. Without baseline, difficult to determine. Renal US shows advanced bilateral hydronephrosis, solid nodule bladder wall 2.8x1.9x1.4 cm, and bladder prevoid volume ~900cc. CT abd pelvis showed advanced b/l hydronephrosis, extensive abdominal and pelvic lymphadenopathy, distended urinary bladder with marked irregular bladder wall thickening, enzo posteriorly most consistent with bladder cancer. UDS negative, Uprotein 1800, UA bloody, 3+ protein, 3+ blood, +LE, >100k RBC, 120 WBC, +yeast Viveros inserted 05/16, continues to produce bloody urine with urinary output. BUN and Cr continue to not improve with nephrostomy tubes or with Viveros. Plan: -Will plan to start hemodialysis today -Viveros in place with hematuria -Urology consulted, recs appreciated -LN biopsy not done due to too small of LN's. -Recommend brain MRI, if patient movements allow #Normocytic anemia #Hyperparathyroidism -Management per primary team. Plan of care discussed with attending Dr. Santana. Liborio Shepard MD PGY-1 Attending Provider Attestation/Addendum Patient seen and examined with resident physician Dr. Shepard. Note reviewed, agree with findings and recommendations. Patient currently seen in ER. Son at bedside. over the phone. Patient seems to be doing poorly for the last couple of months with involuntary movements. Did not seek medical attention. Have not seen a doctor for some time. patient admits to taking vitamins which is making his urine green. Take some ibuprofen as needed. Admitted with CORINA. Workup showed he has a bladder mass with bilateral hydronephrosis. Spoke to Dr. Hernandez-will come and see the patient tomorrow. Recommended Viveros catheter and once the Viveros was placed in more than 900 mL urine came out. Was bloody. Dr. Hernandez recommended to continue watchful waiting. No bladder irritation. At this point we will hold off on dialysis and biopsy. Suspect severe obstructive uropathy. 05/17/2025 CAT scan showed extensive bilateral hydronephrosis. Bilateral percutaneous nephrostomy tube placements ordered. Pending David recommendations. patient seems to have a chronic hydronephrosis for possibly few months. doubt there is any salvageable kidney. Had a long conversation with the -if no improvement in the renal function-he might need temporary dialysis. Pending biopsy of the lymph node in the abdomen. 05/18/2025 patient had percutaneous nephrostomy tubes bilaterally. However the left 1 fell off. Viveros catheter not in bladder. Seems to be in prostate area. His BUN and creatinine markedly elevated. Patient resting comfortably. Had a long conversation with the that doubt there is any salvageable kidney especially with extensive bilateral hydronephrosis for quite some time. Could not get a biopsy from the abdomen as it is close to the aorta. Will try to get it from the pelvic lymph node. Spoke to Dr. Davis patient and agreed for dialysis if needed. ICU was consulted for Vas-Cath. Vas-Cath placed by ICU team. Patient currently on dialysis. Tolerating dialysis without any problems. Hemodialysis for 2 hours, 2K, ultrafiltration 1 L, Epogen 6000, no heparin ordered. Plan of care discussed with the dialysis nurse. Please see dialysis flowsheet for further details. Next dialysis will be scheduled for Tuesday unless labs show significant hyperkalemia.
--- NOTE | 2025-05-18 08:44 | PC.NURSE ---
MD Kirk notified of pts current status pt having abd pain with minimal to no output since last night. Per Md will come see pt no new orders received at this time
[2025-05-18 08:55] LABS: Prostate Specific Antigen 1.68 ng/mL (0-4.00)
--- NOTE | 2025-05-18 09:03 | ESPR_ITS ---
<Statement entered by Figueroa Cross MD - 05/18/25 16:22> Patient seen and examined at bedside. I discussed and supervised with the event planning intern physician who took care of this patient. I personally saw and examined the patient. I agree with most of the assessment and plan. Patient Nephrostomy tube and viveros with minimal bloody output. Kidney function worsening, HD cath placed by respiratory therapy director. Plan for HD today. Continue to monitor nephrostomy tube and viveros, will be eval by urology Tuesday. Notable suprapubic pain/tenderness, dilauded ordered. Tumor markers ordered per oncology consult. Plan of care discussed with attending Dr. Davis. Figueroa Cross MD PGY-2 Documentation for date of: 05/18/25 Subjective Subjective Interval history: No overnight events. Evaluated at bedside. Pt complains of pressure to hypogastric region, likely due to clot or displaced viveros catheter. Per nurse, only 100cc of viveros output and 30 cc of right nephrostomy tube overnight. Left nephrostomy tube had came out post procedure yesterday, no drainage or leakage from left nephrostomy insertion site. Temporary hemodialysis inserted to right internal jugular vein, plan to start hemodialysis today per nephorology. Exam Vital Signs Temp Pulse Resp BP Pulse Ox O2 Del Method O2 Flow Rate 98.1 F 86 19 149/83 H 98 Room Air 3 05/18/25 04:00 05/18/25 04:30 05/18/25 04:00 05/18/25 04:00 05/18/25 04:00 05/18/25 04:00 05/17/25 11:00 Narrative Exam General: malnourished, frail in no distress. Oriented x 3 Skin: No rash, unusual bruising or prominent lesions Head: Normocephalic, atraumatic, no visible or palpable masses, depressions, or scaring. Eyes: conjunctiva clear, sclera non-icteric, no exudates or hemorrhages. Near sighted. Heart: Regular rate and rhythm Lungs: Clear to auscultation. No rales, wheeze, or rhonchi Abdomen: Tenderness to suprapubic region, guarding, or rigidity. Palpable bladder mass. Back: Right nephrostomy tube in place. Left nephrostomy tube removed, insertion site dry and intact. Extremities: No amputations or deformities, cyanosis, edema or varicosities, peripheral pulses intact. Hemodialysis catheter in place at right internal jugular vein. Neurologic: Alert and oriented x 3, chorea like movements. Objective Labs 05/19/25 04:37 05/19/25 04:37 Labs: Laboratory Results - last 24 hr 05/17/25 05/18/25 05/18/25 16:16 04:42 05:25 WBC 16.8 H D RBC 3.02 L Hgb 8.9 L 9.3 L Hct 26.1 L 28.5 L MCV 94 MCH 30.8 MCHC 32.6 RDW Std Deviation 45.8 H Plt Count 293 Neut % (Auto) 93 H Lymph % (Auto) 3 L [place] % (Auto) 4 Eos % (Auto) 0 Baso % (Auto) 0 Neut # (Auto) 15.6 H Lymph # (Auto) 0.4 L [place] # (Auto) 0.6 Eos # (Auto) 0.0 Baso # (Auto) 0.0 Immature Gran # (Auto) 0.10 H Absolute Nucleated RBC 0.00 Immature Gran % 1 H Nucleated RBC % 0 Sodium 136 Potassium 4.3 Chloride 104 Carbon Dioxide 18.0 L Anion Gap 14 BUN 86 H Creatinine 7.5 H* D Estim Creat Clear Calc 9.3 L eGFR 8 L* BUN/Creatinine Ratio 11 L Glucose 142 H Calculated Osmolality 300 H Calcium 8.6 Corrected Calcium 8.8 Phosphorus 4.5 Magnesium 1.9 Total Bilirubin 0.3 AST 13 ALT 11 Alkaline Phosphatase 84 Total Protein 6.6 Albumin 3.7 Globulin 2.9 Albumin/Globulin Ratio 1.3 Prostate Specific Ag 1.68 Quality Measures Quality Measures VTE prophylaxis Assessment & Plan Assessment Current Active Medications: Generic Name Dose Route Start Last Admin Trade Name Freq PRN Reason Stop Dose Admin Acetaminophen 650 mg 05/16/25 10:21 05/18/25 08:38 Acetaminophen 325 Mg Tablet PO 06/15/25 10:20 650 mg Q6H PRN Administration Fever >100.4 or pain Lactated Ringer's 1,000 mls @ 75 mls/hr 05/16/25 10:48 05/17/25 23:13 Lactated Ringers IV 06/15/25 10:47 75 mls/hr .[id number] SHADY Administration Ondansetron HCl 4 mg 05/16/25 10:21 Ondansetron Inj 2 Mg/Ml Inj 2 Ml IVP 06/15/25 10:20 Q6H PRN NAUSEA OR VOMITING Protocol Pantoprazole Sodium 40 mg 05/17/25 09:00 05/18/25 08:38 Pantoprazole Inj 40 Mg Vial IVP 06/16/25 08:59 40 mg QDAY SHADY Administration Plan Mr. Meade is a 64M with unknown past medical history presents for ground level fall. Pt is a poor historian, history obtained from at bedside. Pt denies midline tenderness, neck or head injury. Pt has a chorea-like repetitive movement at baseline, which the states started a few weeks ago. US Bladder shows a bladder mass with bilateral hydronephrosis. Admitted for CORINA with creatinine of 6.2. Per urology patient needed bilateral nephrostomy tubes placed unfortunately one of the tubes was dislodged, patient now has nephrostomy tube present only on the right side. Pending urology eval on Tuesday continue to monitor for signs of urinary retention consider suprapubic catheter. On 05/18/25, nursing staff reports decrease urine output in both right nephrostomy tube (30cc over 12 hours) and viveros cathether (100 cc over 12 hours). A decision was made to start hemodialysis per nephrology. Right hemodialysis inserted at right internal jugular vein. Plan to start hemodialysis later today. #CORINA vs ESRD #hydronephrosis #bladder mass Cardiopulmonary Supervisor 6.2 yesterday, increase to 7.5 today. BUN 86. eGFR 8. Bilateral hydronephrosis with bladder mass on US, confirmed with CT abdomen. Solid nodule noted on bladder wall measuring 2.8 x 1.9 x 1.4cm - bilateral nephrostomy tubes inserted, left one dislodged post procedure, right one intact but not draining. - viveros catheter in place, but not draining. - Urology consulted: patient is not a good candidate for any surgical intervention at this time, Dr. Kent will re-evaluate. Recommends US for kidneys in 1 week, repeat CAT scan with stone protocol in 1 week. Irrigate viveros cathether only if pt has clot retention. - Nephrology consulted: dialysis catherter inserted at right IJ, plan to start hemodialysis today. - strict I/O - renal dose medication - Daily CMP, trend electrolyte. - LN biopsy not done due to too small of LN's #chorea-like movement - Concern for brain metastases - Recommend brain MRI, if patient movements allow - Oncology consulted: Tumor markers PSA, CEA, CA 19-9 pending. #Anemia Hgb 8.8 yesterday, 9.3 today. like due to renal failure - daily CBC, if falls below 7, consider blood transfusion - consider EPO, iron panel. #Hyperparathyroidism PTH 370.5. Ca 8.6 likely secondary to renal failure Dispo: Pending evaluation with urology for bladder mass and hydronephrosis, status post nephrostomy tubes bilaterally with left nephrostomy tube out. DVT prophylaxis: SCDs GI prophylaxis: Protonix 40 IV Diet: Renal diet Lines: Peripheral IV, viveros catheter, R nephrostomy tube, R IJ hemodialysis catheter Code status: Full code Case discussed with my senior resident Dr. Cross Case discussed with my attending Dr. Ryan Kirk DO PGY-1 Attending Provider Attestation/Addendum Margie Sutherland DO, attest that I was physically present for the wallace portions of the service and evaluated the patient with the resident and I reviewed and discussed the case with the resident and agree with the resident's findings and plans of care as documented above Patient seen and eval this a.m. Patient is to undergo dialysis catheter placement in the ICU under Precedex as patient has involuntary movements. Patient complains of back pain and suprapubic pain. He has some fullness in the suprapubic region, but unchanged from admission. Viveros no longer draining, likely due to clot. This was discussed with urology last night and recommends keeping Viveros in place at this time. Right nephrostomy tube also appears to be draining some blood. Unable to flush per nursing. Left nephrostomy tube had fallen out yesterday and urology was updated. Will continue with pain management at this time. Case was discussed with nephrology and plan for starting dialysis due to worsening of renal function. There is minimal renal parenchyma noted on the CT scan due to advanced bilateral hydronephrosis which is the cause for patient requiring dialysis. Will continue with current management otherwise.
--- NOTE | 2025-05-18 10:58 | PC.NURSE ---
Pt having very minimal urine output from nephrostomy tube and fc. Rounded with md york and made azad aware at start of shift. Per MDs continue with fc flush for now and cont to monitor.
--- NOTE | 2025-05-18 11:55 | PC.NURSE ---
Pt transferred to ICU for procedure via hospital bed. Pt aaox4. at bedside informed of the plan. Report given to receiving SHROUD LINE TIER Joe.
[2025-05-18] MEDS: DEXMEDETOMIDINE 400 MCG IVPB 400 MCG/100 ML BAG IV (12:19)
[2025-05-18] MEDS: MIDAZOLAM INJ 1 MG/ML VIAL 2 ML 2 MG IVP (12:27)
[2025-05-18] MEDS: MIDAZOLAM INJ 1 MG/ML VIAL 2 ML IVP ×2 (12:58→13:12)
[2025-05-18] MEDS: LIDOCAINE HCL 1% 20 ML VIAL 10 ML INFL (12:58)
[2025-05-18] MEDS: HALOPERIDOL LACT INJ 5 MG/ML VIAL IV (13:00)
--- NOTE | 2025-05-18 13:34 | XR_ITS ---
Examination: AP chest single view Technique one AP portable semiupright chest single view Date and time: May 18, 2025, 1347 hrs. Comparison May 16, 2025 Indications: Post line placement Findings: Mild pneumonia both bases Temporary dialysis catheter via right internal jugular vein noted, tip in the SVC Moderate vascular congestion Impression: Right internal jugular temporary dialysis catheter satisfactory position No pneumothorax Bibasilar pneumonia.
--- NOTE | 2025-05-18 13:46 | ESCONSULT_ITS ---
HPI Data of Consult Patient: new to practice Consult date: 05/18/25 Requesting Physician: Margie Davis DO Admitting Provider: Margie Davis DO Attending Provider: Tamera Garcia MD Primary Care Provider: Physician No Primary/Family Consult Narrative Reason for consult: Dialysis catheter placement History of present illness: Mr. Meade is a 64-year-old male with past medical history of a remote UTI in the past who presented to [facility] [place] emergency department on May 16, 2025 with a chief complaint of ground-level fall at work. Patient works at [employer] had a mechanical ground-level fall presents to the emergency department for further workup, denied any loss of consciousness, syncope, palpitations, dizziness prior to the fall. Patient did have history of back pain which was not associated with the fall and was on and off prior to the incident. Patient is a poor historian, has a slurring speech, at bedside provided most of the history, per patient has choreatic movements which started recently, they have not had the choreatic movements worked up over in the past, the symptoms started a few weeks to months ago when patient has been unsteady and noticed to have involuntary movements, there is also complaint of slurring of speech though it is attributed to missing top dentures. Patient's father is estranged, of myocardial infarction in 50s, no other siblings have similar movements. At baseline patient is able to act independently, function independently and has no past medical problems denies taking any medications, reports taking some Tylenol/ibuprofen or multivitamins [id number] at times. Patient was noted to have a firm mass in his suprapubic region in the emergency department, he attributed some complaints of straining while urination and incomplete voiding. In-house hospitalist service admitted patient for acute kidney injury, nephrology has been following the patient, over the course of hospitalization patient found to have obstructive uropathy secondary to a bladder mass, bilateral hydronephrosis. 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 Interventional radiology was able to place bilateral nephrostomy tubes on 05/17/2025, there is some concern of dislodged left nephrostomy tube today. However over the course of hospitalization patient has progressive worsening renal failure, nephrology is requesting for temporary dialysis catheter from the brim stitcher team and hence ICU was consulted. 05/18/2025: Patient seen and examined at bedside, has significant choreatic movements, also has underlying anxiety, there was concern that patient would not be able to stay still for the procedure hence decision was made to transfer patient to intensive care unit for Precedex drip during the procedure. Right IJ catheter placement was done successfully in the intensive care unit, post placement right IJ temporary dialysis catheter in satisfactory position per chest x-ray, no pneumothorax. Prior to procedure patient was given 2 mg of Versed, during the procedure patient did require x 1 Haldol 5 mg and times two 1 mg of Versed. Precedex drip was maxed out during the procedure, the procedure was performed under sterile conditions and the barrier was maintained throughout the procedure with direct brim stitcher supervision. Did have small x 1 emesis postprocedure. Sedation was turned off postprocedure, patient awake back at baseline, bedside swallow performed at bedside, patient passed. cc:: cc: Margie Davis DO Review of Systems Review of Systems Systems Reviewed: All systems reviewed, normal except as documented Past Medical History Past Medical History Comments PMH COMMENT: PMH:No significant past medical history PSHx: Right meniscus repair Allergies: No known allergies Social history: Independent in function, able to take care of his finances, lives with family. -Smoking: Active smoker until 3 weeks ago, more than 30 pack years -Alcohol Use: Occasional alcohol use, never heavy alcohol user -Illicit Drug Use: Denies -Occupation: Works nights at [employer] -Martial Status: Family History: Family history of NV in father in 50s, no family history of Showell's Chorea Exam Vital Signs Temp Pulse Resp BP Pulse Ox O2 Del Method O2 Flow Rate 98.7 F 94 21 H 133/82 H 97 Room Air 3 05/18/25 12:00 05/18/25 12:00 05/18/25 12:00 05/18/25 12:00 05/18/25 12:05/18/25 12:05/17/25 11:00 Narrative Exam General: malnourished, frail in no distress. Alert & Oriented x 3 Skin: No rash, unusual bruising or prominent lesions Head: Normocephalic, atraumatic, no visible or palpable masses, depressions, or scaring. Eyes: conjunctiva clear, sclera non-icteric, no exudates or hemorrhages. Near sighted. Heart: Regular rate and rhythm Lungs: Clear to auscultation. No rales, wheeze, or rhonchi Abdomen: No tenderness, guarding, or rigidity. Palpable bladder mass. Back: Spine normal without deformity or tenderness, no CVA tenderness Extremities: No amputations or deformities, cyanosis, edema or varicosities, peripheral pulses intact Neurologic: Alert and oriented x 3, chorea like movements, appears to have restless legs and occasionally smacks his lips before speaking and has occasional rhythmic forward tilting of his trunk Results Labs 05/19/25 04:37 05/19/25 04:37 Labs: Short CBC 05/17/25 05/18/25 Range/Units 16:16 04:42 WBC 16.8 H D (3.8-10.6) Thou/mm3 Hgb 8.9 L 9.3 L (13.5-16.0) g/dL Hct 26.1 L 28.5 L (41.0-53.0) % Plt Count 293 (140-440) Thou/mm3 BMP 05/18/25 04:42 Sodium 136 Potassium 4.3 Chloride 104 Carbon Dioxide 18.0 L BUN 86 H Creatinine 7.5 H* D Glucose 142 H Calcium 8.6 Liver Function 05/18/25 Range/Units 04:42 Total Bilirubin 0.3 (0.3-1.2) mg/dL AST 13 (0-34) U/L ALT 11 (10-49) U/L Alkaline Phosphatase 84 (46-116) U/L Albumin 3.7 (3.4-4.8) gm/dL Quality Measures Quality Measures VTE prophylaxis Medications Home Medications and Allergies Home Medications ?Medication ?Instructions ?Recorded ?Confirmed ?Type No Known Home Medications 05/19/2505/01 History Allergies Allergy/AdvReac Type Severity Reaction Status Date / Time No Known Allergies Allergy Verified 06/15/18 21:22 Visit Medications Acetaminophen (Acetaminophen 325 Mg Tablet) 650 mg PO Q6H PRN; Protocol PRN Reason: Fever >100.4 or pain Stop: 06/15/25 10:20 Last Admin: 05/18/25 08:38 Dose: 650 mg Haloperidol Lactate (Haloperidol Lact Inj 5 Mg/Ml Vial) 5 mg IV Q6HR PRN PRN Reason: AGITATION (SEVERE) Stop: 05/23/25 13:01 Hydromorphone HCl (Hydromorphone Inj 2 Mg/Ml Vial) 1 mg IVP Q4HR PRN; Protocol PRN Reason: PAIN Stop: 05/23/25 10:44 Lactated Ringer's (Lactated Ringers) 1,000 mls @ 75 mls/hr IV .[id number] SHADY Stop: 06/15/25 10:47 Last Admin: 05/17/25 23:13 Dose: 75 mls/hr Dexmedetomidine/Sodium Chloride (Precedex Ivpb) 400 mcg in 100 mls @ 3.221 mls/hr IV .Q24H PRN; Protocol PRN Reason: Per PROTOCOL Stop: 06/17/25 11:49 Last Titration: 05/18/25 13:20 Dose: 0 mcg/kg/hr, 0 mls/hr Ondansetron HCl (Ondansetron Inj 2 Mg/Ml Inj 2 Ml) 4 mg IVP Q6H PRN; Protocol PRN Reason: NAUSEA OR VOMITING Stop: 06/15/25 10:20 Pantoprazole Sodium (Pantoprazole Inj 40 Mg Vial) 40 mg IVP QDAY [facility] Stop: 06/16/25 08:59 Last Admin: 05/18/25 08:38 Dose: 40 mg Discontinued Medications Clotrimazole (Clotrimazole Cr 1% 30 Gm Tube) 0 gm TOP BID SHADY Stop: 06/16/25 20:59 Diphenhydramine HCl (Diphenhydramine Inj 50 Mg/Ml Vial) 12.5 mg IVP X1 PRN PRN Reason: Prior to CT imaging Stop: 06/15/25 17:27 Last Admin: 05/16/25 20:25 Dose: 12.5 mg Fentanyl Citrate (Fentanyl Cit Inj 50 Mcg/Ml Amp 2ml) 50 mcg IVP X1 ONE Stop: 05/17/25 11:46 Last Admin: 05/17/25 11:48 Dose: 50 mcg Fentanyl Citrate (Fentanyl Cit Inj 50 Mcg/Ml Amp 2ml) 50 mcg IVP X1 ONE Stop: 05/17/25 10:31 Last Admin: 05/17/25 10:50 Dose: 50 mcg Heparin Sodium (Beef Lung) (Heparin Sod Lock Syr 100 Unit/Ml) 500 unit STFIELD X1 ONE Stop: 05/17/25 11:01 Last Admin: 05/17/25 11:30 Dose: 500 unit Heparin Sodium (Porcine) (Heparin Sod Inj 5000 Unit/Ml Vial) 5,000 unit SC Q12HR SHADY Stop: 05/30/25 10:29 Last Admin: 05/16/25 13:28 Dose: Not Given Sodium Chloride (Ns) 1,000 mls @ 999 mls/hr IV .Q1H1M ONE Stop: 05/16/25 11:01 Last Infusion: 05/16/25 14:58 Dose: Infused Magnesium Sulfate (Magnesium Sulfate Ivpb) 4 gm in 50 mls @ 12.5 mls/hr IV X1 ONE Stop: 05/16/25 21:32 Last Admin: 05/16/25 19:45 Dose: 12.5 mls/hr Levetiracetam (Levetiracetam Inj 100 Mg/Ml Vial 5ml) 500 mg IVP X1 ONE Stop: 05/16/25 06:47 Last Admin: 05/16/25 09:43 Dose: Not Given Lidocaine HCl (Lidocaine Inj Pf 1% 30 Ml Vial) 10 ml INFL X1 ONE Stop: 05/17/25 11:01 Last Admin: 05/17/25 11:49 Dose: 10 ml Lidocaine HCl (Lidocaine Hcl 1% 20 Ml Vial) 10 ml INFL X1 ONE Stop: 05/18/25 13:03 Last Admin: 05/18/25 12:58 Dose: 10 ml Lorazepam (Lorazepam 0.5 Mg Tablet) 1 mg PO X1 ONE Stop: 05/16/25 06:51 Last Admin: 05/16/25 09:12 Dose: 1 mg Lorazepam (Lorazepam 2 Mg/Ml Vial) 2 mg IVP X1 PRN PRN Reason: Prior to CT imaging Stop: 05/21/25 17:20 Midazolam HCl (Midazolam Inj 1 Mg/Ml Vial 2 Ml) 2 mg IVP X1 PRN PRN Reason: Prior to Central Line Stop: 05/19/25 11:49 Last Admin: 05/18/25 12:27 Dose: 2 mg Midazolam HCl (Midazolam Inj 1 Mg/Ml Vial 2 Ml) 1 mg IVP X1 ONE Stop: 05/18/25 13:03 Last Admin: 05/18/25 12:58 Dose: 1 mg Midazolam HCl (Midazolam Inj 1 Mg/Ml Vial 2 Ml) 1 mg IVP X1 ONE Stop: 05/18/25 13:15 Last Admin: 05/18/25 13:12 Dose: 1 mg Sevelamer Carbonate (Sevelamer Carbonate 800 Mg Tablet) 800 mg PO X1 ONE Stop: 05/16/25 17:34 Last Admin: 05/16/25 19:45 Dose: 800 mg Tuberculin PPD (Tuberculin Ppd Inj 5 Unit/0.1 Ml Dose) 5 unit ID X1 ONE Stop: 05/18/25 10:55 Assessment & Plan Plan Summary: Mr. Meade is a 64-year-old male with past medical history of a remote UTI in the past who presented to [facility] [place] emergency department on May 16, 2025 with a chief complaint of ground-level fall at work. Patient works at [employer] had a mechanical ground-level fall presents to the emergency department for further workup, denied any loss of consciousness, syncope, palpitations, dizziness prior to the fall. Patient was found to have progressive renal failure during the hospitalization, has palpable bladder mass, had bilateral nephrostomy tube placement 05/17, nephrology is requesting for temporary dialysis catheter placement and hence ICU team was consulted. #Acute kidney injury, stage III #Obstructive uropathy secondary to bladder mass #Bilateral hydronephrosis #Gross hematuria No past medical history, does have history of 30 pack years, bladder mass found on CT abdomen pelvis likely consistent with bladder cancer. On admission creatinine 6.2, BUN 92, GFR 10. Progressive worsening of renal function despite nephrostomy tube placement on 05/17, high suspicion of a competent of prerenal versus renal, massive kidneys noted on CT abdomen pelvis,?Underlying renal cysts, possible advanced bilateral hydronephrosis. 05/18 BUN 86, creatinine 7.5, GFR 8, patient has minimal urinary output, possible dislodged nephrostomy tube on the left, possible dislodged Araiza catheter. Nephrology consulted brim stitcher team for temporary dialysis catheter placement. - Right IJ temporary dialysis catheter placed successfully - During procedure patient required Precedex drip, 4 mg of Versed and 5 mg of IV Haldol - Post procedure x-ray shows satisfactory positioning of right IJ temporary dialysis catheter, no pneumothorax. - Patient will be downgraded from ICU postprocedure, is able to swallow at bedside - Nephrology consulted, appreciate recommendations - Rest of the management per primary team #Hyperparathyroidism #Normal anion gap metabolic acidosis secondary to uremia #Leukocytosis #Normocytic normochromic anemia #Chorea like movements #Extensive abdominal and pelvic lymphadenopathy -Management per primary team Case discussed with Attending physician Dr. Tamera Garcia MD. Cullen Mcelroy MD Internal Medicine PGY 2 Disclaimer: This note was dictated by speech recognition. Minor errors in neon installer may be present due to voice recognition software. Attending Provider Attestation/Addendum Patient seen and examined resident, agree with above. In brief this is a 64-year-old gentleman who presented to the ER for back pain. He was noted to have markedly enlarged kidneys with severe bilateral hydronephrosis as well as some degree of urinary retention. There was a tumor noted on CT in his bladder. He has had bilateral nephrostomy tubes placed however the left-sided nephrostomy tube was accidentally dislodged. Right-sided nephrostomy tube has removed no drainage. The Araiza is in place however it is not clear if it reaches the urinary bladder or if it is lodged in the urethra. This too has drained some amount of urine and blood. Patient is being followed by the internal medicine and nephrology service. It was deemed that the patient was appropriate for hemodialysis. The ICU was contacted for assistance with placement of a Vas-Cath. The patient was seen and examined in his room on [facility]. He is awake alert and oriented. His is at bedside. His lungs are clear to auscultation very regular and rhythmic. Abdomen was soft however there did appear to be diffuse tenderness throughout though no rebound or guarding. No edema of the lower extremities, pulses palpable, uncontrollable movements noted of his body. Patient was found to be somewhat difficult for procedure at bedside in the [facility] unit therefore the patient was transferred to the ICU. In the ICU he was started on a Precedex drip and required 2 doses of Versed as well as Haldol. Ultimately successfully with good blood return. Secured in place. The patient was monitored for an additional hour in the ICU and he remained hemodynamically stable with good sats. He was returned to the room and returned. Case discussed with ICU team and nephrology Labs, imaging and records reviewed With 50 minutes required with this consult, review of the chart, discussion formulation and plan of care
--- NOTE | 2025-05-18 13:46 | PD.RESPROC ---
PROCEDURES: Procedure Date / Time 05/18/25 1300 Central Line Placement Right IJ: Indication(s): other (Temporary dialysis catheter placement-[facility]) Informed consent obtained: from patient (Signed by , patient has choreatic movements, required sedation with Precedex drip, Versed pushes) Time out done, and the following verified: correct patient, side and site, procedure, patient position and implants and/or equipment Patient placed on monitor/pulse ox: Yes Hand Hygiene: scrub, soap & water and alcohol-based hand rub Max Sterile Barrier Techniques used: cap, mask, sterile gown, sterile gloves and sterile full body drape Central line prep: Chlorhexidine scrub and sterile drapes applied Local anesthesia used: lidocaine 1% Amount of anesthesia used (mL): 5 Ultrasound used for placement: Yes Sterile Technique if Ultrasound used, including sterile gel: yes Central line lumen inserted: double Post procedure: sutured in place, good blood return, all ports aspirated, flushed, capped and sterile dressing applied Post procedure x-ray: tip of catheter in good position and no pneumothorax seen Patient tolerated procedure: well EBL(ml): 10 Complications: none Procedure comment: Patient was started on Precedex drip with a RASS goal of 0, was given 2 mg of Versed prior to procedure, patient has jerking-choreatic movements, consent was given by patient and patient's prior to procedure. A time out was performed, My hands were washed immediately prior to the procedure. I wore a surgical cap, mask, sterile gown and sterile gloves throughout the procedure. The patient was placed in Trendelenburg position. The right groin/chest region was prepped using chlorhexidine scrub and draped in sterile fashion using a full drape. Ultrasound used for procedure to assist with guiding access, sterile probe cover and sterile gel employed. Anesthesia was achieved with 1% lidocaine. The introducer needle was inserted. Venous blood was withdrawn. The syringe was removed and a guidewire was advanced into the introducer needle. A small incision was made at the skin surface with a scalpel and the introducer needle was exchanged for a dilator over the guidewire. After appropriate dilation was obtained, the dilator was exchanged over the wire for a double-lumen central venous catheter. The wire was removed and the catheter was sutured in place. A sterile sorbaview shield was placed over the catheter at the insertion site. The patient tolerated the procedure well, during procedure patient was anxious had repeated jerky movements for which patient was given x 2 Versed 1 mg and x 1 Haldol 5 mg. At time of procedure completion, all ports aspirated and flushed properly. Estimated blood loss is 10ml. Procedure performed under the direct supervision of attending senior systems developer Dr. Tamera Garcia who was available throughout the procedure and assisted with procedure as needed. Cullen Mcelroy MD Internal Medicine PGY 2 Disclaimer: This note was dictated by speech recognition. Minor errors in promotion writer may be present due to voice recognition software. Attending note: I was present for and participated with all wallace aspects of this procedure. The patient did have uncontrollable movements consistent with his chorea which required total of 3 mg of Versed, 5 mg of Haldol and Precedex. Ultimately the patient tolerated the procedure well with no complications. Chest x-ray confirmed appropriate placement with no pneumothorax.
[2025-05-18] MEDS: HYDROmorphone INJ 2 MG/ML VIAL 1 MG IVP (15:22)
[2025-05-19] VITALS (21 sets, daily range): BP systolic 110–150; BP diastolic 62–86; PULSE 88–118; RESP 17–20; TEMP 36.6–37.6; O2SAT 95–99
[2025-05-19] MEDS: ACETAMINOPHEN 325 MG TABLET 650 MG PO ×2 (04:36→19:25)
[2025-05-19 05:24] LABS: Basophils # (Auto) 0.0 Thou/mm3 (0.0-0.2); Basophils % (Auto) 0 % (0-2.5); Eosinophils # (Auto) 0.0 Thou/mm3 (0.0-0.5); Eosinophils % (Auto) 0 % (0-10); Hematocrit 24.2 % (41.0-53.0); Immature Granulocytes Auto 0.13 Thou/mm3 (0.00-0.00); Lymphocytes # (Auto) 0.6 Thou/mm3 (1.0-4.8); Lymphocytes % (Auto) 3 % (10-50); Mean Corpuscular HGB Conc 34.3 g/dl (31.0-37.0); Mean Corpuscular Hemoglobin 30.3 pg (25.0-35.0); Mean Corpuscular Volume 88 fL (80-100); Monocytes # (Auto) 0.9 Thou/mm3 (0.0-0.8); Monocytes % (Auto) 5 % (0-12); Neutrophils # (Auto) 15.1 Thou/mm3 (1.8-7.7); Neutrophils % (Auto) 90 % (37-80); Nucleated Red Blood Cell # 0.00 Thou/mm3 (0.00-0.00); Nucleated Red Blood Cell % 0 /100 WBC (0); Platelet Count 279 Thou/mm3 (140-440); RDW Standard Deviation 43.5 fL (35.1-43.9); Red Blood Count 2.74 Miln/mm3 (4.50-5.90); White Blood Count 16.7 Thou/mm3 (3.8-10.6)
[2025-05-19 05:56] LABS: Hemoglobin 8.3 g/dL (13.5-16.0)
[2025-05-19 06:07] LABS: Alanine Aminotransferase 8 U/L (10-49); Albumin, Serum 3.5 gm/dL (3.4-4.8); Albumin/Globulin Ratio 1.3 (1.2-2.2); Alkaline Phosphatase 93 U/L (46-116); Anion Gap 12 (7-16); Aspartate Amino Transferase 10 U/L (0-34); BUN/Creatinine Ratio 10 Ratio (12-20); Bilirubin,Total 0.3 mg/dL (0.3-1.2); Blood Urea Nitrogen 63 mg/dL (9-23); Calcium 8.7 mg/dL (8.3-10.6); Calcium (Corrected) 9.1 mg/dL (8.5-10.1); Carbon Dioxide 24.9 mMol/L (20.0-31.0); Chloride 103 mMol/L (98-107); Creatinine (Component) 6.3 mg/dL (0.6-1.3); Estimated Creatinine Clearance 11.1 mL/min (>60); Globulin 2.7 gm/dL (2.3-3.5); Glucose 119 mg/dL (74-106); Magnesium 1.7 mg/dL (1.6-2.6); Osmolality,Calculated 298 (275-295); Phosphorous 4.6 mg/dL (2.4-5.1); Potassium 4.5 mMol/L (3.4-5.1); Sodium 140 mMol/L (136-145); Total Protein 6.2 gm/dL (5.7-8.2); eGFR 9 See Note
[2025-05-19] MEDS: Magnesium Sulfate 4 GM Ivpb 4 GM/50 ML BAG IV (06:24)
--- NOTE | 2025-05-19 08:50 | XR_ITS ---
Examination: Nuclear medicine kidney imaging flow and function multiple studies Date and time: May 20, 2025, 1600 hours INDICATIONS:: Renal insufficiency on laboratory examination last week, prominent bilateral hydronephrosis Date and time: May 20, 2025, 1440 hours TECHNIQUE AND FINDINGS: Intravenous administration 10.2 mCi technetium MAG3 with flow and function curves generated to 48 minutes Minimal flow to the left kidney, no left renal function Reduced flow to the right kidney no renal function IMPRESSION: No renal function
--- NOTE | 2025-05-19 09:43 | ESPR_ITS ---
Documentation for date of: 05/19/25 Subjective Subjective Interval history: Amarjit Meade is a 62-year-old male with no past medical history presented for mechanical fall at work. States that he fell forward because his lower back has been giving out for the past few months. He has also been having chorea-like, jerky movements for the past few months and is supposed to see neurology but is having insurance issues. Has not seen a physician in many years. Per , patient has been having enuresis for the past few weeks and claims patient is stubborn and does not want to see a physician. Patient's urine is normally green due to vitamin supplements. Patient admits that he does not drink very much water nor does he urinate very much. Denies pain on urination, increase in urinary urgency, frequency or hesitancy, interrupted stream, any history of prostate issues, flank pain, or recent weight loss. Denies fever, chills, shortness of breath or chest pain. Denies family history of any kidney disease or dialysis. 05/17/25: No acute overnight events. Patient seen and examined at bedside with . No new complaints. Denies chest pain, SOB or fever. Had viveros inserted yesterday with kristofer blood on insertion. CT abd pelvis showed advanced b/l hydronephrosis, extensive abdominal and pelvic lymphadenopathy, distended urinary bladder with marked irregular bladder wall thickening, enzo posteriorly most consistent with bladder cancer. Bicarb 18, BUN still elevated 84, Cr still elevated 6.4, GFR 9, Mg high 2.7. 05/18/25: No acute overnight events. Patient seen and examined at bedside with . Vitals and labs reviewed. Plan to start hemodialysis today given no improvement with nephrostomy tubes or viveros. Lymph node biopsy not able to be completed due to LN's being too small. No new complaints. Denies chest pain, SOB or fever. 05/19/25: Patient seen and examined at bedside with . Patient is feeling better today. No new complaints. Denies chest pain, SOB or fever. Bladder scan showed 487 mL retained. Viveros appears to be placed in prostate, spoke with nurse to further advance viveros. Recommend pelvic lymph node biopsy. Cr still elevated 6.3, BUN decreased to 63. Exam Vital Signs Temp Pulse Resp BP Pulse Ox O2 Del Method O2 Flow Rate 98.9 F 98 18 129/79 96 Nasal Cannula 1 07/20/25 08:00 05/19/25 08:00 05/19/25 08:00 05/19/25 08:00 05/19/25 08:00 05/19/25 08:00 05/19/25 08:00 Narrative Exam General: AOx3, thin, older than stated age, no acute distress, chorea-like movements improved HEENT: NC/AT, mucous membranes dry, bilateral sclera anicteric Cardiovascular: regular rate and rhythm, S1/S2 present, no murmurs appreciated Pulmonary: clear to auscultation bilaterally, no rales/rhonchi/wheezes Abdominal: soft, non-tender, non-distended, no rebound/guarding, bowel sounds present Extremities: no peripheral edema Skin: warm and dry, intact, no rashes Neuro CN II-XII grossly intact, no focal deficits, alert, following commands Objective Labs 05/19/25 04:37 05/19/25 04:37 Labs: Laboratory Results - last 24 hr 05/19/25 04:37 WBC 16.7 H RBC 2.74 L Hgb 8.3 L Hct 24.2 L MCV 88 MCH 30.3 MCHC 34.3 RDW Std Deviation 43.5 Plt Count 279 Neut % (Auto) 90 H Lymph % (Auto) 3 L [place] % (Auto) 5 Eos % (Auto) 0 Baso % (Auto) 0 Neut # (Auto) 15.1 H Lymph # (Auto) 0.6 L [place] # (Auto) 0.9 H Eos # (Auto) 0.0 Baso # (Auto) 0.0 Immature Gran # (Auto) 0.13 H Absolute Nucleated RBC 0.00 Immature Gran % 1 H Nucleated RBC % 0 Sodium 140 Potassium 4.5 Chloride 103 Carbon Dioxide 24.9 Anion Gap 12 BUN 63 H Creatinine 6.3 H* D Estim Creat Clear Calc 11.1 L eGFR 9 L* BUN/Creatinine Ratio 10 L Glucose 119 H Calculated Osmolality 298 H Calcium 8.7 Corrected Calcium 9.1 Phosphorus 4.6 Magnesium 1.7 Total Bilirubin 0.3 AST 10 ALT 8 L Alkaline Phosphatase 93 Total Protein 6.2 Albumin 3.5 Globulin 2.7 Albumin/Globulin Ratio 1.3 Quality Measures Quality Measures VTE prophylaxis Assessment & Plan Assessment Current Active Medications: Generic Name Dose Route Start Last Admin Trade Name Freq PRN Reason Stop Dose Admin Acetaminophen 650 mg 05/16/25 10:21 05/19/25 04:36 Acetaminophen 325 Mg Tablet PO 06/15/25 10:20 650 mg Q6H PRN Administration Fever >100.4 or pain Protocol Heparin Sodium (Porcine) 3,100 unit 05/18/25 18:21 Heparin Sod Inj 1000 Unit/Ml Vial 10 Ml INDWELLCAT 06/01/25 18:20 X1 PRN DIALYSIS Hydromorphone HCl 1 mg 05/18/25 10:45 05/18/25 15:22 Hydromorphone Inj 2 Mg/Ml Vial IVP 05/23/25 10:44 1 mg Q4HR PRN Administration PAIN Protocol Lactated Ringer's 1,000 mls @ 75 mls/hr 05/16/25 10:48 05/17/25 23:13 Lactated Ringers IV 06/15/25 10:47 75 mls/hr .[id number] SHADY Administration Magnesium Sulfate 4 gm in 50 mls @ 12.5 mls/hr 05/19/25 06:13 05/19/25 06:24 Magnesium Sulfate Ivpb IV 05/19/25 10:12 12.5 mls/hr X1 ONE Administration Ondansetron HCl 4 mg 05/16/25 10:21 Ondansetron Inj 2 Mg/Ml Inj 2 Ml IVP 06/15/25 10:20 Q6H PRN NAUSEA OR VOMITING Protocol Pantoprazole Sodium 40 mg 05/17/25 09:00 05/19/25 08:36 Pantoprazole Inj 40 Mg Vial IVP 06/16/25 08:59 40 mg QDAY SHADY Administration Plan Amarjit Meade is a 62-year-old male with no past medical history presented for mechanical fall at work due to chorea-like movements, found to have Cr 6.2 and BUN 92 with bladder mass and advanced hydronephrosis. #Obstructive uropathy 2/2 bladder mass causing #Bilateral hydronephrosis #CORINA Patient has no past medical history, history of kidney disease or any recent lab values to compare. ~30 pack year smoking hx, quit 04/2025. Reports new enuresis for the past few weeks and jerky movements for a few months, latter metastasis to brain from bladder cancer vs uremic origin with improvement in movement post dialysis. On admission, creatinine 6.2, BUN 92, GFR 10, CK 323, ammonia 17, lactic acid 0.5. Ddx includes obstrutive uropathy from bladder cancer causing CORINA vs CKD, likely ESRD due to lack of improvement in Cr and BUN with Viveros and nephrostomy tubes (latter placed 05/17) Renal US shows advanced bilateral hydronephrosis, solid nodule bladder wall 2.8x1.9x1.4 cm, and bladder prevoid volume ~900cc. CT abd pelvis showed advanced b/l hydronephrosis, extensive abdominal and pelvic lymphadenopathy, distended urinary bladder with marked irregular bladder wall thickening, enzo posteriorly most consistent with bladder cancer. Viveros inserted 05/16, continues to produce bloody urine with low urinary output. LN biopsy not done due to too small of LN's. Received HD 05/18, Plan: -HD today -Viveros in place with hematuria and low urine output -Urology consulted, recs appreciated -Recommend pelvic lymph node biopsy -Recommend brain MRI, if patient movements allow -F/u NM renal scan #Normocytic anemia #Hyperparathyroidism -Management per primary team. Plan of care discussed with attending Dr. Santana. Joanna Matamoros, DO Internal Medicine PGY-1 Attending Provider Attestation/Addendum Patient seen and examined with resident physician Dr. Matamoros. Note reviewed, agree with findings and recommendations. Patient currently seen in ER. Son at bedside. over the phone. Patient seems to be doing poorly for the last couple of months with involuntary movements. Did not seek medical attention. Have not seen a doctor for some time. patient admits to taking vitamins which is making his urine green. Take some ibuprofen as needed. Admitted with CORINA. Workup showed he has a bladder mass with bilateral hydronephrosis. Spoke to Dr. Hernandez-will come and see the patient tomorrow. Recommended Viveros catheter and once the Viveros was placed in more than 900 mL urine came out. Was bloody. Dr. Hernandez recommended to continue watchful waiting. No bladder irritation. At this point we will hold off on dialysis and biopsy. Suspect severe obstructive uropathy. 05/17/2025 CAT scan showed extensive bilateral hydronephrosis. Bilateral percutaneous nephrostomy tube placements ordered. Pending David recommendations. patient seems to have a chronic hydronephrosis for possibly few months. doubt there is any salvageable kidney. Had a long conversation with the -if no improvement in the renal function-he might need temporary dialysis. Pending biopsy of the lymph node in the abdomen. 05/19/2025 patient had percutaneous nephrostomy tubes bilaterally. However the left 1 fell off. Viveros catheter not in bladder. Seems to be in prostate area. His BUN and creatinine markedly elevated. Patient resting comfortably. Had a long conversation with the that doubt there is any salvageable kidney especially with extensive bilateral hydronephrosis for quite some time. Could not get a biopsy from the abdomen as it is close to the aorta. Will try to get it from the pelvic lymph node. Spoke to Dr. Davis. patient and agreed for dialysis. Vas-Cath placed by ICU team. Patient currently on second dialysis. Tolerating dialysis without any problems. Hemodialysis for 2.5 hours, 2K, ultrafiltration 0 L, Epogen 6000, no heparin ordered. Plan of care discussed with the dialysis nurse. Please see dialysis flowsheet for further details. Next dialysis will be scheduled for Tuesday. clinically loks better. more alert. chorea is better. MRI brain pending CC:
--- NOTE | 2025-05-19 10:29 | XR_ITS ---
Examination: CT chest with intravenous contrast 2-D sagittal and coronal reconstructions Exam date and time: May 19, 2025, 1215 hrs. Indications: Acute renal insufficiency on laboratory examination 3 days ago, extensive abdominal and pelvic lymphadenopathy advanced bilateral hydronephrosis on CT abdomen pelvis May 16, 2025, staging CTDI:vol (mGy) 9.96 DLP: (mGycm) 333 Technique: Multiple axial sections of the thorax have been obtained. Sections have been obtained, 3 mm slice thickness. Mediastinal and lung density settings have been obtained. Intravenous contrast administered, 60 cc Isovue-370. 2-D sagittal, coronal images obtained. Low dose protocols were performed. One or more of the following dose reduction techniques were used; automated exposure control, adjustment of the mA and/or KV according to patient size, use of iterative reconstruction technique. Findings: No thoracic aortic aneurysmal dilatation No pulmonary artery filling defects No paratracheal tracheobronchial or bronchopulmonary adenopathy Pneumonia both bases, significant left base, small left minimal right pleural fluid 21 mm left lobe liver cyst Significant bilateral hydronephrosis Moderate osteopenia no osseous metastatic disease Impression: No mediastinal lymphadenopathy Significant bibasilar pneumonia No pulmonary masses
--- NOTE | 2025-05-19 13:55 | ESPR_ITS ---
<Statement entered by Abhay Rojas MD - 05/19/25 14:22> Patient was seen and examined at the bedside. No acute overnight events were reported. Patient has been doing well and has choreiform movements have been under control post hemodialysis. Patient required another hemodialysis session per nephrology recommendations. Will likely replace right nephrostomy tube tomorrow since it is not draining. Will keep the patient n.p.o. after midnight. There is a concern for metastasis therefore we will follow-up with MRI brain without contrast and CT chest with contrast. Patient will be getting dialysis in the afternoon so placed the order for CT chest before hemodialysis. Family was explained and notified regarding further plan. All labs and orders were reviewed. I discussed and supervised with the legal summer intern physician who took care of this patient. I personally saw and examined the patient. I agree with most of the assessment and plan. Disclaimer: Despite multiple revisions, due to the dictation software being used, the document bellow may not be free of grammatical errors including phonetic/typographic errors. However, this does not deter from our commitment to providing health care in the patient's best interest in mind. Plan of care discussed with attending Physician Dr. Ryan Rojas MD PGY-3 Documentation for date of: 05/19/25 Subjective Subjective Interval history: No overnight events. Evaluated at bedside. presents at bedside. Nursing staff reports no drainage from right nephrostomy tube overnight, likely due to renal failure or clot. Viveros cathether drains brown colored urine. Pt reports slight discomfort from suprapubic region, unchange from yesterday. Dialysis planned for noon today. Of note, Chorea-like movements greatly decreased, likely proceed with MRI head today if pt can remains still. Exam Vital Signs Temp Pulse Resp BP Pulse Ox O2 Del Method O2 Flow Rate 98.1 F 104 H 18 139/76 H 96 Nasal Cannula 1 05/19/25 12:38 05/19/25 13:30 05/19/25 12:38 05/19/25 13:30 05/19/25 12:38 05/19/25 08:00 05/19/25 12:38 Narrative Exam General: malnourished, frail in no distress. Oriented x 3 Skin: No rash, unusual bruising or prominent lesions Head: Normocephalic, atraumatic, no visible or palpable masses, depressions, or scaring. Eyes: conjunctiva clear, sclera non-icteric, no exudates or hemorrhages. Near sighted. Heart: Regular rate and rhythm Lungs: Clear to auscultation. No rales, wheeze, or rhonchi Abdomen: Tenderness to suprapubic region, guarding, or rigidity. Palpable bladder mass. Back: Right nephrostomy tube in place. Left nephrostomy tube removed, insertion site dry and intact. Extremities: No amputations or deformities, cyanosis, edema or varicosities, peripheral pulses intact. Hemodialysis catheter in place at right internal jugular vein. Neurologic: Alert and oriented x 3, chorea like movements decreased Objective Labs 05/20/25 05:07 05/20/25 05:07 Labs: Laboratory Results - last 24 hr 05/19/25 04:37 WBC 16.7 H RBC 2.74 L Hgb 8.3 L Hct 24.2 L MCV 88 MCH 30.3 MCHC 34.3 RDW Std Deviation 43.5 Plt Count 279 Neut % (Auto) 90 H Lymph % (Auto) 3 L [place] % (Auto) 5 Eos % (Auto) 0 Baso % (Auto) 0 Neut # (Auto) 15.1 H Lymph # (Auto) 0.6 L [place] # (Auto) 0.9 H Eos # (Auto) 0.0 Baso # (Auto) 0.0 Immature Gran # (Auto) 0.13 H Absolute Nucleated RBC 0.00 Immature Gran % 1 H Nucleated RBC % 0 Sodium 140 Potassium 4.5 Chloride 103 Carbon Dioxide 24.9 Anion Gap 12 BUN 63 H Creatinine 6.3 H* D Estim Creat Clear Calc 11.1 L eGFR 9 L* BUN/Creatinine Ratio 10 L Glucose 119 H Calculated Osmolality 298 H Calcium 8.7 Corrected Calcium 9.1 Phosphorus 4.6 Magnesium 1.7 Total Bilirubin 0.3 AST 10 ALT 8 L Alkaline Phosphatase 93 Total Protein 6.2 Albumin 3.5 Globulin 2.7 Albumin/Globulin Ratio 1.3 Quality Measures Quality Measures VTE prophylaxis Assessment & Plan Assessment Current Active Medications: Generic Name Dose Route Start Last Admin Trade Name Freq PRN Reason Stop Dose Admin Acetaminophen 650 mg 05/16/25 10:21 05/19/25 04:36 Acetaminophen 325 Mg Tablet PO 06/15/25 10:20 650 mg Q6H PRN Administration Fever >100.4 or pain Protocol Diphenhydramine HCl 12.5 mg 05/19/25 10:31 Diphenhydramine Inj 50 Mg/Ml Vial IVP X1 PRN Prior to MRI and CT imaging Heparin Sodium (Porcine) 3,100 unit 05/18/25 18:21 Heparin Sod Inj 1000 Unit/Ml Vial 10 Ml INDWELLCAT 06/01/25 18:20 X1 PRN DIALYSIS Hydromorphone HCl 1 mg 05/18/25 10:45 05/18/25 15:22 Hydromorphone Inj 2 Mg/Ml Vial IVP 05/23/25 10:44 1 mg Q4HR PRN Administration PAIN Protocol Lactated Ringer's 1,000 mls @ 75 mls/hr 05/16/25 10:48 05/17/25 23:13 Lactated Ringers IV 06/15/25 10:47 75 mls/hr .[id number] SHADY Administration Ondansetron HCl 4 mg 05/16/25 10:21 Ondansetron Inj 2 Mg/Ml Inj 2 Ml IVP 06/15/25 10:20 Q6H PRN NAUSEA OR VOMITING Protocol Pantoprazole Sodium 40 mg 05/17/25 09:00 05/19/25 08:36 Pantoprazole Inj 40 Mg Vial IVP 06/16/25 08:59 40 mg QDAY SHADY Administration Plan Mr. Meade is a 64M with unknown past medical history presents for ground level fall. Pt is a poor historian, history obtained from at bedside. Pt denies midline tenderness, neck or head injury. Pt has a chorea-like repetitive movement at baseline, which the states started a few weeks ago. US Bladder shows a bladder mass with bilateral hydronephrosis. Admitted for CORINA with creatinine of 6.2. Hemodialysis present on right IJ, pt continues to receive dialysis. Chorea-like movement greatlty decreased, proceed with MRI today if pt can remains still. #CORINA vs ESRD #hydronephrosis #bladder mass Bilateral hydronephrosis with bladder mass on US, confirmed with CT abdomen. Solid nodule noted on bladder wall measuring 2.8 x 1.9 x 1.4cm - bilateral nephrostomy tubes inserted, left one dislodged post procedure, right one intact but not draining. - viveros catheter in place, but not draining. - Urology consulted: patient is not a good candidate for any surgical intervention at this time, Dr. Kent will re-evaluate. Recommends US for kidneys in 1 week, repeat CAT scan with stone protocol in 1 week. Irrigate viveros cathether only if pt has clot retention. - Nephrology consulted: dialysis catherter inserted at right IJ, continue hemodialysis today. Recommends pelvic lymph node biopsy. Pending NM renal scan. - Pending chest CT read. - strict I/O - renal dose medication - Daily CMP, trend electrolyte. #chorea-like movement - Concern for brain metastases - movement greatly decreased, proceed with MRI today if pt can remains still. - Oncology consulted: Tumor markers: CEA and CA 19-9 pending. PSA negative. #Anemia Hgb 8.8 -> 9.3 -> 8.3 today. like due to renal failure - daily CBC, if falls below 7, consider blood transfusion - consider EPO, iron panel. #Hyperparathyroidism PTH 370.5. Ca 8.6 likely secondary to renal failure Dispo: MedSurg DVT prophylaxis: SCDs GI prophylaxis: Protonix 40 IV Diet: Renal diet Lines: Peripheral IV, viveros catheter, R nephrostomy tube, R IJ hemodialysis catheter Code status: Full code Case discussed with my senior resident Dr. Rojas Case discussed with my attending Dr. Ryan Kirk DO PGY-1 Attending Provider Attestation/Addendum Margie Sutherland DO, attest that I was physically present for the wallace portions of the service and evaluated the patient with the resident and I reviewed and discussed the case with the resident and agree with the resident's findings and plans of care as documented above Patient seen and eval this a.m. Patient resting comfortably and is at bedside. He continues to have some pain on palpation of suprapubic area which feels firm. Viveros catheter has been draining copper colored urine. Patient tolerated dialysis well yesterday. He has no acute complaints. Plan to replace left nephrostomy tube tomorrow and have IR assess right nephrostomy tube that may be clotted off with blood. Pending urology reevaluation in AM. Continue with pain control as needed. Will obtain CT chest to assess for possible lymphadenopathy and other possible targets for biopsy as lymph node biopsy was unsuccessful. MRI of head also ordered as patient appears to have less involuntary movements. Will have Benadryl as needed starts to have involuntary movement or prior to MRI. Pending HD at noon today
[2025-05-19] MEDS: HEPARIN SOD INJ 1000 UNIT/ML VIAL 10 ML 3100 UNIT INDWELLCAT (15:11)
[2025-05-19] MEDS: TUBERCULIN PPD INJ 5 UNIT/0.1 ML DOSE ID (17:16)
[2025-05-19 21:15] LABS: Carcinoembryonic Antigen 6.4 ng/mL (0.0-5.0)
[2025-05-19 21:51] LABS: Hepatitis A Antibody IgM Non Reactive (Non React); Hepatitis B Core Antibody IgM Non Reactive (Non React); Hepatitis B Surface Ab NonReact(Not Immune) (Immune); Hepatitis B Surface Antigen Non Reactive (Non React); Hepatitis C Antibody Non Reactive (Non React)
[2025-05-20] VITALS (34 sets, daily range): BP systolic 101–145; BP diastolic 62–84; PULSE 79–121; RESP 14–188; TEMP 36.2–38; O2SAT 90–100; BMI 17.6
--- NOTE | 2025-05-20 | XR_ITS ---
Examination: MRI brain without intravenous contrast. Date and time of exam: May 20, 2025, 1841 hours INDICATIONS: Abnormal body movements the last several months, extensive abdominal and pelvic lymphadenopathy, advanced bilateral hydronephrosis on CT abdomen and pelvis May 16, 2025 Technique: Multiple axial and sagittal images of the brain obtained. Siemens high-resolution 1.5 Brenda short bore scanners utilized. Sagittal sections, T1-weighted, TR 500, TE 14, are performed. Axial sections proton-density and T2-weighted have been obtained. Inversion recovery axial images, TR 9, 260, TE 111, TI 2500. Diffusion weighted images, axial sections, TR 4800, TE 128, B value 1000 Axial sections, ADC map, TR 4800, TE 128 Findings: Enlargement of the sella turcica is not present. The optic chiasm and infundibular are not remarkable. Prepontine and interpeduncular cisterns are not enlarged. There is no localized enlargement of the medulla or markus. Fourth ventricle and cerebellar tonsils appear normal in position. No subacute area of hemorrhage density is seen. Mass in the cerebellopontine angle region is not evident. Globes symmetrical. Orbital musculature including medial lateral rectus muscles do not exhibit abnormality. Diffusion-weighted images demonstrate no focus of restricted diffusion. Increased white matter signal moderate Chronic pansinusitis Mass effect upon the ventricular system is not identified. Impression: Negative for acute hemorrhage mass effect or midline shift No acute infarct Moderate chronic microvascular white matter change Prominent atrophy No focal metastatic lesions noted on this noncontrast study
[2025-05-20 05:32] LABS: Basophils # (Auto) 0.0 Thou/mm3 (0.0-0.2); Basophils % (Auto) 0 % (0-2.5); Eosinophils # (Auto) 0.0 Thou/mm3 (0.0-0.5); Eosinophils % (Auto) 0 % (0-10); Hematocrit 23.2 % (41.0-53.0); Immature Granulocytes Auto 0.21 Thou/mm3 (0.00-0.00); Lymphocytes # (Auto) 0.6 Thou/mm3 (1.0-4.8); Lymphocytes % (Auto) 3 % (10-50); Mean Corpuscular HGB Conc 34.1 g/dl (31.0-37.0); Mean Corpuscular Hemoglobin 30.3 pg (25.0-35.0); Mean Corpuscular Volume 89 fL (80-100); Monocytes # (Auto) 1.4 Thou/mm3 (0.0-0.8); Monocytes % (Auto) 6 % (0-12); Neutrophils # (Auto) 20.1 Thou/mm3 (1.8-7.7); Neutrophils % (Auto) 90 % (37-80); Nucleated Red Blood Cell # 0.00 Thou/mm3 (0.00-0.00); Nucleated Red Blood Cell % 0 /100 WBC (0); Platelet Count 216 Thou/mm3 (140-440); RDW Standard Deviation 43.9 fL (35.1-43.9); Red Blood Count 2.61 Miln/mm3 (4.50-5.90); White Blood Count 22.4 Thou/mm3 (3.8-10.6)
[2025-05-20 05:33] LABS: Hemoglobin 7.9 g/dL (13.5-16.0)
[2025-05-20 05:49] LABS: Alanine Aminotransferase 9 U/L (10-49); Albumin, Serum 3.2 gm/dL (3.4-4.8); Albumin/Globulin Ratio 1.2 (1.2-2.2); Alkaline Phosphatase 83 U/L (46-116); Anion Gap 13 (7-16); Aspartate Amino Transferase 11 U/L (0-34); BUN/Creatinine Ratio 8 Ratio (12-20); Bilirubin,Total 0.3 mg/dL (0.3-1.2); Blood Urea Nitrogen 48 mg/dL (9-23); Calcium 8.4 mg/dL (8.3-10.6); Calcium (Corrected) 9.0 mg/dL (8.5-10.1); Carbon Dioxide 22.7 mMol/L (20.0-31.0); Chloride 101 mMol/L (98-107); Creatinine (Component) 6.0 mg/dL (0.6-1.3); Estimated Creatinine Clearance 11.6 mL/min (>60); Globulin 2.6 gm/dL (2.3-3.5); Glucose 116 mg/dL (74-106); Magnesium 2.4 mg/dL (1.6-2.6); Osmolality,Calculated 287 (275-295); Phosphorous 5.1 mg/dL (2.4-5.1); Potassium 4.4 mMol/L (3.4-5.1); Sodium 137 mMol/L (136-145); Total Protein 5.8 gm/dL (5.7-8.2); eGFR 10 See Note
--- NOTE | 2025-05-20 06:09 | PC.NURSE ---
Dr. Omer updated regarding patient having elevated HR earlier in the shift (110s-130s) but after patient had a bowel movement pt heart rates have been in the 90s and low 100s. Patient asymptomatic.
--- NOTE | 2025-05-20 07:43 | XR_ITS ---
Examination: IR fluoroscopically guided placement left nephrostomy drainage catheter Fluoroscopy AP abdomen single view Ultrasound-guided needle access left renal collecting system Exam date and time: May 20, 2025 1357 hours INDICATIONS: Advanced bilateral hydronephrosis on CT examination May 19, 2025 TECHNIQUE AND FINDINGS: Informed consent provided. Timeout performed. Skin prepped over the left leg and sterile drape applied hand hygiene ultrasound sterile technique 1% lidocaine administered for local anesthesia Ultrasound utilized to confirm location of dilated left renal collecting system Utilizing ultrasonographic guidance successful 21-gauge needle puncture into the dilated left renal collecting system Ultrasound images recorded and stored 0.18 wire guide is introduced through the needle into the dilated renal collecting system followed by 5 Armenian catheter 0.35 wire guide placed through the catheter followed by dilators and a 10 Armenian nephrostomy tube in satisfactory position Estimated blood loss 2 cc Patient instable condition at completion procedure IMPRESSION: Successful IR fluoroscopically guided left nephrostomy drainage catheter placement Fluoroscopy 0.3 minute radiation dose 4.84 milligray 1 spot fluoroscopic abdomen films
[2025-05-20] MEDS: HYDROmorphone INJ 2 MG/ML VIAL 1 MG IVP (07:50)
--- NOTE | 2025-05-20 08:13 | PC.NURSE ---
PATIENT TRANSFER TO DIALYSIS AT THIS TIME ACCOMPANIED BY ROSA M GARCIA. PT ALERT AND ORIENTED X3. DR. LOMBARDI AT BEDSIDE, POC DISCUSSED. DR. BUCHANAN.
--- NOTE | 2025-05-20 08:34 | ESPR_ITS ---
Documentation for date of: 05/20/25 Subjective Subjective Interval history: Amarjit Meade is a 62-year-old male with no past medical history presented for mechanical fall at work. States that he fell forward because his lower back has been giving out for the past few months. He has also been having chorea-like, jerky movements for the past few months and is supposed to see neurology but is having insurance issues. Has not seen a physician in many years. Per , patient has been having enuresis for the past few weeks and claims patient is stubborn and does not want to see a physician. Patient's urine is normally green due to vitamin supplements. Patient admits that he does not drink very much water nor does he urinate very much. Denies pain on urination, increase in urinary urgency, frequency or hesitancy, interrupted stream, any history of prostate issues, flank pain, or recent weight loss. Denies fever, chills, shortness of breath or chest pain. Denies family history of any kidney disease or dialysis. 05/17/25: No acute overnight events. Patient seen and examined at bedside with . No new complaints. Denies chest pain, SOB or fever. Had viveros inserted yesterday with kristofer blood on insertion. CT abd pelvis showed advanced b/l hydronephrosis, extensive abdominal and pelvic lymphadenopathy, distended urinary bladder with marked irregular bladder wall thickening, enzo posteriorly most consistent with bladder cancer. Bicarb 18, BUN still elevated 84, Cr still elevated 6.4, GFR 9, Mg high 2.7. 05/18/25: No acute overnight events. Patient seen and examined at bedside with . Vitals and labs reviewed. Plan to start hemodialysis today given no improvement with nephrostomy tubes or viveros. Lymph node biopsy not able to be completed due to LN's being too small. No new complaints. Denies chest pain, SOB or fever. 05/19/25: Patient seen and examined at bedside with . Patient is feeling better today. No new complaints. Denies chest pain, SOB or fever. Bladder scan showed 487 mL retained. Viveros appears to be placed in prostate, spoke with nurse to further advance viveros. Recommend pelvic lymph node biopsy. Cr still elevated 6.3, BUN decreased to 63. 05/20/25: Patient seen and examined at bedside with . No new complaints. Denies chest pain, SOB or fever. Choreiform movements much improved. Viveros bag is bloody with Hgb down trending 9.3->8.3->7.9. Cr still elevated 6.0, BUN continues to downtrend 48. Exam Vital Signs Temp Pulse Resp BP Pulse Ox O2 Del Method O2 Flow Rate 100.4 F 110 H 18 102/62 90 L Room Air 1 05/20/25 08:22 05/20/25 08:30 05/20/25 08:22 05/20/25 08:30 05/20/25 08:22 05/20/25 08:00 05/20/25 08:22 Narrative Exam General: AOx3, thin, older than stated age, no acute distress, chorea-like movements improved HEENT: NC/AT, mucous membranes dry, bilateral sclera anicteric, R IJ cath in place Cardiovascular: regular rate and rhythm, S1/S2 present, no murmurs appreciated Pulmonary: bilateral mild coarse breath sounds Abdominal: soft, non-tender, non-distended, no rebound/guarding, bowel sounds present, Rt nephrostomy tube in place posteriorly Extremities: no peripheral edema Skin: warm and dry, intact, no rashes Neuro CN II-XII grossly intact, no focal deficits, alert, following commands Objective Labs 05/21/25 04:15 05/21/25 04:15 Labs: Laboratory Results - last 24 hr 05/18/25 05/18/25 05/20/25 04:21 05:25 05:07 WBC 22.4 H D RBC 2.61 L Hgb 7.9 L Hct 23.2 L MCV 89 MCH 30.3 MCHC 34.1 RDW Std Deviation 43.9 Plt Count 216 D Neut % (Auto) 90 H Lymph % (Auto) 3 L [place] % (Auto) 6 Eos % (Auto) 0 Baso % (Auto) 0 Neut # (Auto) 20.1 H Lymph # (Auto) 0.6 L [place] # (Auto) 1.4 H Eos # (Auto) 0.0 Baso # (Auto) 0.0 Immature Gran # (Auto) 0.21 H Absolute Nucleated RBC 0.00 Immature Gran % 1 H Nucleated RBC % 0 Sodium 137 Potassium 4.4 Chloride 101 Carbon Dioxide 22.7 Anion Gap 13 BUN 48 H Creatinine 6.0 H* Estim Creat Clear Calc 11.6 L eGFR 10 L* BUN/Creatinine Ratio 8 L Glucose 116 H Calculated Osmolality 287 Calcium 8.4 Corrected Calcium 9.0 Phosphorus 5.1 Magnesium 2.4 Total Bilirubin 0.3 AST 11 ALT 9 L Alkaline Phosphatase 83 Total Protein 5.8 Albumin 3.2 L Globulin 2.6 Albumin/Globulin Ratio 1.2 Carcinoembryonic Ag 6.4 H Hepatitis A IgM Ab Non Reactive Hep Bs Antigen Non Reactive Hep Bs Antibody NonReact(Not Immune) L Hep B Core IgM Ab Non Reactive Hepatitis C Antibody Non Reactive Quality Measures Quality Measures VTE prophylaxis Assessment & Plan Assessment Current Active Medications: Generic Name Dose Route Start Last Admin Trade Name Freq PRN Reason Stop Dose Admin Acetaminophen 650 mg 05/16/25 10:21 05/19/25 19:25 Acetaminophen 325 Mg Tablet PO 06/15/25 10:20 650 mg Q6H PRN Administration Fever >100.4 or pain Protocol Diphenhydramine HCl 12.5 mg 05/19/25 10:31 Diphenhydramine Inj 50 Mg/Ml Vial IVP X1 PRN Prior to MRI and CT imaging Epoetin Kvng 10,000 unit 05/20/25 10:30 Epoetin Kvng-Epbx Inj 10,000 Unit/Ml Vial (Esrd) SC 05/20/25 10:31 X1 ONE Heparin Sodium (Porcine) 3,100 unit 05/18/25 18:21 05/19/25 15:11 Heparin Sod Inj 1000 Unit/Ml Vial 10 Ml INDWELLCAT 06/01/25 18:20 3,100 unit X1 PRN Administration DIALYSIS Hydromorphone HCl 1 mg 05/18/25 10:45 05/20/25 07:50 Hydromorphone Inj 2 Mg/Ml Vial IVP 05/23/25 10:44 1 mg Q4HR PRN Administration PAIN Protocol Lactated Ringer's 1,000 mls @ 75 mls/hr 05/16/25 10:48 05/17/25 23:13 Lactated Ringers IV 06/15/25 10:47 75 mls/hr .[id number] SHADY Administration Ondansetron HCl 4 mg 05/16/25 10:21 Ondansetron Inj 2 Mg/Ml Inj 2 Ml IVP 06/15/25 10:20 Q6H PRN NAUSEA OR VOMITING Protocol Pantoprazole Sodium 40 mg 05/17/25 09:00 05/19/25 08:36 Pantoprazole Inj 40 Mg Vial IVP 06/16/25 08:59 40 mg QDAY SHADY Administration Plan Amarjit Meade is a 62-year-old male with no past medical history presented for mechanical fall at work due to chorea-like movements, found to have Cr 6.2 and BUN 92 with bladder mass and advanced hydronephrosis. #Obstructive uropathy 2/2 bladder mass causing #Bilateral hydronephrosis #CORINA Patient has no past medical history, history of kidney disease or any recent lab values to compare. ~30 pack year smoking hx, quit 04/2025. Reports new enuresis for the past few weeks and jerky movements for a few months, latter ddx metastasis to brain from bladder cancer vs uremic origin with improvement in movement post dialysis. On admission, creatinine 6.2, BUN 92, GFR 10, CK 323, ammonia 17, lactic acid 0.5. Ddx includes obstrutive uropathy from bladder cancer causing CORINA vs CKD, likely ESRD due to lack of improvement in Cr and BUN with Viveros and nephrostomy tubes (latter placed 05/17, L one fell out 05/19) Renal US shows advanced bilateral hydronephrosis, solid nodule bladder wall 2.8x1.9x1.4 cm, and bladder retention CT abd pelvis showed advanced b/l hydronephrosis, extensive abdominal and pelvic lymphadenopathy, distended urinary bladder with marked irregular bladder wall thickening, enzo posteriorly most consistent with bladder cancer. Paraortic LN biopsy not done due to too small of LN's. Urology consulted, recs appreciated: irrigate viveros if has clot retention, at this time not a good candidate for surgical intervention, repeat kidney US in 1 week Received HD 05/18, 05/19 Plan: -HD today, add 1L NS and 1 unit pRBC -Viveros in place with hematuria -Plan to replace R nephrostomy tube today -Recommend pelvic lymph node biopsy -F/u NM renal scan, MRI brain #Normocytic anemia #Hyperparathyroidism -Management per primary team. Plan of care discussed with attending Dr. Santana. Joanna Matamoros, DO Internal Medicine PGY-1 Attending Provider Attestation/Addendum Patient seen and examined with resident physician Dr. Matamoros. Note reviewed, agree with findings and recommendations. Patient currently seen in ER. Son at bedside. over the phone. Patient seems to be doing poorly for the last couple of months with involuntary movements. Did not seek medical attention. Have not seen a doctor for some time. patient admits to taking vitamins which is making his urine green. Take some ibuprofen as needed. Admitted with CORINA. Workup showed he has a bladder mass with bilateral hydronephrosis. Spoke to Dr. Hernandez-will come and see the patient tomorrow. Recommended Viveros catheter and once the Viveros was placed in more than 900 mL urine came out. Was bloody. Dr. Hernandez recommended to continue watchful waiting. No bladder irritation. At this point we will hold off on dialysis and biopsy. Suspect severe obstructive uropathy. 05/17/2025 CAT scan showed extensive bilateral hydronephrosis. Bilateral percutaneous nephrostomy tube placements ordered. Pending David recommendations. patient seems to have a chronic hydronephrosis for possibly few months. doubt there is any salvageable kidney. Had a long conversation with the -if no improvement in the renal function-he might need temporary dialysis. Pending biopsy of the lymph node in the abdomen. 05/19/2025 patient had percutaneous nephrostomy tubes bilaterally. However the left 1 fell off. Viveros catheter not in bladder. Seems to be in prostate area. His BUN and creatinine markedly elevated. Patient resting comfortably. Had a long conversation with the that doubt there is any salvageable kidney especially with extensive bilateral hydronephrosis for quite some time. Could not get a biopsy from the abdomen as it is close to the aorta. Will try to get it from the pelvic lymph node. Spoke to Dr. Davis. patient and agreed for dialysis. Vas-Cath placed by ICU team. Patient currently on third dialysis. Tolerating dialysis without any problems. Hemodialysis for 3 hours, 2K, ultrafiltration 0 L, Epogen 6000, no heparin ordered. Plan of care discussed with the dialysis nurse. Please see dialysis flowsheet for further details. Patient needs outpatient dialysis. clinically looks better. more alert. chorea is better. MRI brain negative. Spoke to Dr. Hernandez-will see the patient today. Left nephrostomy tube was already placed
[2025-05-20 08:48] LABS: INR 1.0 (0.9-1.3); Partial Thromboplastin Time 24.6 Seconds (22.0-36.0); Prothrombin Time 11.3 Seconds (9.0-12.2)
--- NOTE | 2025-05-20 09:28 | ESPR_ITS ---
<Statement entered by Figueroa Cross MD - 05/20/25 16:16> Patient seen and examined at bedside. I discussed and supervised with the leadership program internship physician who took care of this patient. I personally saw and examined the patient. I agree with most of the assessment and plan. Patient continues to receive dialysis, nephro following. L nephrostomy tube replaced. MRI pending. Will attempt to replace Viveros cath, if failed, urology will evaluate further. Patient had fever with increased WBCs, blood cultures ordered, started empiric rocephin and doxycycline. ESR, CRP, procal elevated, unreliable in setting of likely advanced bladder cancer. Plan of care discussed with attending Dr. Davis. Figueroa Cross MD PGY-2 Documentation for date of: 05/20/25 Subjective Subjective Interval history: No overnight events. Evaluated at bedside. Pt's chorea-like movement has greatly improved, none was noted when pt was asleep. Pt feels warm to touch, elevated WBC from 16.7 to 22.4 today, temperature 100.4F this morning, repeat temp at 98.7F, concerned for possible infection. Blood cultures ordered. Hgb decreased from 8.3 to 7.9 today, a unit of blood was transfused during dialysis. Viveros catheter displaced, attempt reinsertion but unsuccessful. Urology contacted. The patient denies chest pain, shortness of breath, or abdominal pain. at bedside reports he had a bowel movement last night. Exam Vital Signs Temp Pulse Resp BP Pulse Ox O2 Del Method O2 Flow Rate 100.4 F 94 18 118/66 90 L Room Air 1 05/20/25 08:22 05/20/25 09:15 05/20/25 08:22 05/20/25 09:15 05/20/25 08:22 05/20/25 08:00 05/20/25 08:22 Narrative Exam General: malnourished, frail in no distress. Oriented x 3. Febrile. Skin: No rash, unusual bruising or prominent lesions Head: Normocephalic, atraumatic, no visible or palpable masses, depressions, or scaring. Eyes: conjunctiva clear, sclera non-icteric, no exudates or hemorrhages. Near sighted. Heart: Regular rate and rhythm Lungs: Clear to auscultation. No rales, wheeze, or rhonchi Abdomen: Tenderness to suprapubic region greatly improved. No guarding or rigidity. Palpable bladder mass. Back: Right nephrostomy tube in place. Left nephrostomy tube removed, insertion site dry and intact. Extremities: No amputations or deformities, cyanosis, edema or varicosities, peripheral pulses intact. Hemodialysis catheter in place at right internal jugular vein. Neurologic: Alert and oriented x 3, chorea like movements decreased. Objective Labs 05/21/25 04:15 05/21/25 04:15 Labs: Laboratory Results - last 24 hr 05/18/25 05/18/25 05/20/25 04:21 05:25 05:07 WBC 22.4 H D RBC 2.61 L Hgb 7.9 L Hct 23.2 L MCV 89 MCH 30.3 MCHC 34.1 RDW Std Deviation 43.9 Plt Count 216 D Neut % (Auto) 90 H Lymph % (Auto) 3 L [place] % (Auto) 6 Eos % (Auto) 0 Baso % (Auto) 0 Neut # (Auto) 20.1 H Lymph # (Auto) 0.6 L [place] # (Auto) 1.4 H Eos # (Auto) 0.0 Baso # (Auto) 0.0 Immature Gran # (Auto) 0.21 H Absolute Nucleated RBC 0.00 Immature Gran % 1 H Nucleated RBC % 0 PT INR APTT Sodium 137 Potassium 4.4 Chloride 101 Carbon Dioxide 22.7 Anion Gap 13 BUN 48 H Creatinine 6.0 H* Estim Creat Clear Calc 11.6 L eGFR 10 L* BUN/Creatinine Ratio 8 L Glucose 116 H Calculated Osmolality 287 Calcium 8.4 Corrected Calcium 9.0 Phosphorus 5.1 Magnesium 2.4 Total Bilirubin 0.3 AST 11 ALT 9 L Alkaline Phosphatase 83 Total Protein 5.8 Albumin 3.2 L Globulin 2.6 Albumin/Globulin Ratio 1.2 Carcinoembryonic Ag 6.4 H Hepatitis A IgM Ab Non Reactive Hep Bs Antigen Non Reactive Hep Bs Antibody NonReact(Not Immune) L Hep B Core IgM Ab Non Reactive Hepatitis C Antibody Non Reactive Crossmatch 05/20/25 05/20/25 06:27 08:55 WBC RBC Hgb Hct MCV MCH MCHC RDW Std Deviation Plt Count Neut % (Auto) Lymph % (Auto) [place] % (Auto) Eos % (Auto) Baso % (Auto) Neut # (Auto) Lymph # (Auto) [place] # (Auto) Eos # (Auto) Baso # (Auto) Immature Gran # (Auto) Absolute Nucleated RBC Immature Gran % Nucleated RBC % PT 11.3 INR 1.0 APTT 24.6 Sodium Potassium Chloride Carbon Dioxide Anion Gap BUN Creatinine Estim Creat Clear Calc eGFR BUN/Creatinine Ratio Glucose Calculated Osmolality Calcium Corrected Calcium Phosphorus Magnesium Total Bilirubin AST ALT Alkaline Phosphatase Total Protein Albumin Globulin Albumin/Globulin Ratio Carcinoembryonic Ag Hepatitis A IgM Ab Hep Bs Antigen Hep Bs Antibody Hep B Core IgM Ab Hepatitis C Antibody Crossmatch See Detail Quality Measures Quality Measures VTE prophylaxis Assessment & Plan Assessment Current Active Medications: Generic Name Dose Route Start Last Admin Trade Name Freq PRN Reason Stop Dose Admin Acetaminophen 650 mg 05/16/25 10:21 05/19/25 19:25 Acetaminophen 325 Mg Tablet PO 06/15/25 10:20 650 mg Q6H PRN Administration Fever >100.4 or pain Protocol Diphenhydramine HCl 12.5 mg 05/19/25 10:31 Diphenhydramine Inj 50 Mg/Ml Vial IVP X1 PRN Prior to MRI and CT imaging Epoetin Kvng 10,000 unit 05/20/25 10:30 Epoetin Kvng-Epbx Inj 10,000 Unit/Ml Vial (Esrd) SC 05/20/25 10:31 X1 ONE Heparin Sodium (Porcine) 3,100 unit 05/18/25 18:21 05/19/25 15:11 Heparin Sod Inj 1000 Unit/Ml Vial 10 Ml INDWELLCAT 06/01/25 18:20 3,100 unit X1 PRN Administration DIALYSIS Hydromorphone HCl 1 mg 05/18/25 10:45 05/20/25 07:50 Hydromorphone Inj 2 Mg/Ml Vial IVP 05/23/25 10:44 1 mg Q4HR PRN Administration PAIN Protocol Lactated Ringer's 1,000 mls @ 75 mls/hr 05/16/25 10:48 05/17/25 23:13 Lactated Ringers IV 06/15/25 10:47 75 mls/hr .[id number] SHADY Administration Ondansetron HCl 4 mg 05/16/25 10:21 Ondansetron Inj 2 Mg/Ml Inj 2 Ml IVP 06/15/25 10:20 Q6H PRN NAUSEA OR VOMITING Protocol Pantoprazole Sodium 40 mg 05/17/25 09:00 05/19/25 08:36 Pantoprazole Inj 40 Mg Vial IVP 06/16/25 08:59 40 mg QDAY REPLACED BY [facility] Administration Plan Mr. Meade is a 64M with unknown past medical history presents for ground level fall. Pt is a poor historian, history obtained from at bedside. Pt denies midline tenderness, neck or head injury. Pt has a chorea-like repetitive movement at baseline, which the states started a few weeks ago. US Bladder shows a bladder mass with bilateral hydronephrosis. Admitted for CORINA with creatinine of 6.2. Hemodialysis present on right IJ, pt continues to receive dialysis. Chorea-like movement greatlty decreased. Left nephrostomy tube replaced in IR. Pending NM Renal study. #CORINA vs ESRD #hydronephrosis #bladder mass Bilateral hydronephrosis with bladder mass on US, confirmed with CT abdomen. Solid nodule noted on bladder wall measuring 2.8 x 1.9 x 1.4cm - bilateral nephrostomy tubes inserted, left one dislodged post procedure, right one intact but not draining. - Left nephrostomy tube replaced in IR on 05/20. - viveros catheter displaced, Viveros catheter attempt unsuccessful, urology contacted. - Urology consulted: patient is not a good candidate for any surgical intervention at this time, Dr. Kent will re-evaluate. Recommends US for kidneys in 1 week, repeat CAT scan with stone protocol in 1 week. Irrigate viveros cathether only if pt has clot retention. - Nephrology consulted: dialysis catherter inserted at right IJ, continue hemodialysis today. Recommends pelvic lymph node biopsy. Pending NM renal scan. - CT Chest reads significant bibasilar pneumonia. - strict I/O - renal dose medication - Daily CMP, trend electrolyte. #Pneumonia #CAUTI vs Catheter-related bloodstream infection CT chest shows significant bibasilar pneumonia, elevated WBC today from 16..7 -> 22.4, temp 100.4 overnight - elevated ESR, prolactin, CRP, likely due to poor renal function and tumor mass - pending blood cultures - Start Rocephin 1g QD and doxycycline 100mg BID #chorea-like movement - Concern for brain metastases - movement greatly decreased, proceed with MRI today if pt can remains still. - Oncology consulted: Tumor markers: CA 19-9 pending. CEA elevated, PSA negative. #Anemia Hgb 8.8 -> 9.3 -> 8.3 today. like due to renal failure - A unit of blood was transfused during dialysis today. - Retacrit 10,000unit x1 - daily CBC, if falls below 7, consider blood transfusion - consider EPO, iron panel. #Hyperparathyroidism PTH 370.5. Ca 8.6 likely secondary to renal failure - follow up out patient Dispo: MedSurg DVT prophylaxis: SCDs GI prophylaxis: Protonix 40 IV Diet: Renal diet Lines: Peripheral IV, viveros catheter, bilateral nephrostomy tube in place, R IJ hemodialysis catheter Code status: Full code Case discussed with my senior resident Dr. Rojas Case discussed with my attending Dr. Ryan Krik DO PGY-1 Attending Provider Attestation/Addendum Margie Sutherland DO, attest that I was physically present for the wallace portions of the service and evaluated the patient with the resident and I reviewed and discussed the case with the resident and agree with the resident's findings and plans of care as documented above Patient was seen and evaluated this AM. Case discussed with urology who recommended for nursing to advance viveros catheter. However, nursing had issue with re-inflating balloon for viveros. Patient continues to have clots from bladder draining. Viveros was removed so that patient could go to IR to undergo replacement of L nephrostomy tube drainage and assessment of right nephrostomy tube. Case discussed with urology after difficulty of placement of Viveros catheter. Will have nurses reattempt once patient is back from IR. However, urine will divert to nephrostomy tube once it is replaced. Patient also pending MRI and renal function scan. is at bedside all questions and concerns addressed at bedside.
[2025-05-20 10:56] LABS: C-Reactive Protein 21.1 mg/dL (0.0-0.9); Procalcitonin 7.46 ng/ml (0.0-0.49)
[2025-05-20 11:04] LABS: Sed Rate (ESR) 54 mm/hr (0-20)
[2025-05-20 11:28] LABS: Lactate (Lactic Acid) 1.2 mMol/L (0.4-2.0)
[2025-05-20] MEDS: EPOETIN ALFA-EPBX INJ 10,000 UNIT/ML VIAL (ESRD) 10000 UNIT SC (11:48)
[2025-05-20] MEDS: HEPARIN SOD INJ 1000 UNIT/ML VIAL 10 ML 3100 UNIT INDWELLCAT (12:02)
--- NOTE | 2025-05-20 12:02 | PC.NURSE ---
PATIENT BACK IN HIS ROOM, ALERT TO SELF AND PLACE, HE IS FATIGUE AFTER DIALYSIS, NO PAIN AT THIS TIME.
[2025-05-20] MEDS: cefTRIAXone/D5w 1gm IV premix 1 GM/50 ML BAG IV (12:10)
--- NOTE | 2025-05-20 12:26 | PC.NURSE ---
DR. VO AND DR. KWOK VERBAL ORDER TO PUSH IN MARTINEZ CATHETER. ORDER RECEIVED, READ BACK AND CARRIED OUT. PATIENT GAVE VERBAL CONSENT.
--- NOTE | 2025-05-20 12:53 | PC.NURSE ---
MARTINEZ CATHETER CLEANED WITH ALCOHOL AND BALLOON DEFLATED BEFORE ADVANCING PER DR. KWOK VERBAL ORDER, NO RESISTANCE FELT UPON ADVANCEMENT, NURSE UNABLE TO INFLATE BALLOON DUE TO RESISTANCE, NURSE UNABLE TO IRRIGATE MARTINEZ CATHETER DUE TO RESISTANCE, DR. KWOK UNABLE TO BE CONTACTED, DR. VO MADE AWARE AND VERBAL ORDER TO REMOVE MARTINEZ CATHETER, ABDOMEN IS FIRM PT TOLERATED FAIR. DR. OV AWARE PT IS GOING TO IR FOR PROCEDURE. PT ALERT AND ORIENTED TO SELF AND PLACE. RONA GARCIA ACCOMPANIED PT. FAMILY AT BEDSIDE MADE AWARE.
[2025-05-20] MEDS: fentaNYL CIT INJ 50 mCg/ML AMP 2ML 100 MCG IVP (14:22)
[2025-05-20] MEDS: LIDOCAINE INJ PF 1% 30 ML VIAL 7 ML INFL (14:23)
--- NOTE | 2025-05-20 14:30 | PC.SS ---
SS follow up note; Nephrostomy tube placement today. MRI pending. Patient will discharge home when medically cleared.
--- NOTE | 2025-05-20 15:18 | PC.NURSE ---
RONA RN CALLED REPORT GIVEN, PT DONE WITH IR PROCEDURE AT 1500, WENT TO NUCLEAR MEDICINE ESTIMATED ABOUT AN HOUR. FAMILY AT BEDSIDE UPDATE GIVE.
--- NOTE | 2025-05-20 15:34 | PC.NURSE ---
1445 patient post left nephrostomy tube placement in IR, tolerated procedure well, report given to Arcelia GARCIA, patient transferred to nuclear med department for another procedure. Family member called and updated.
--- NOTE | 2025-05-20 16:00 | PC.NURSE ---
OBAD FROM NUCLEAR MEDICINE CALLED AND INFORM LAST 15 MINUTES OF SCAN WAS NOT COMPLETED DUE TO PATIENTS SUDDEN JERKING MOVEMENTS AND SAFETY CONCERN. DR. BASURTO MADE AWARE. NO NEW ORDERS GIVEN.
--- NOTE | 2025-05-20 16:25 | PC.NURSE ---
PATIENT BACK IN HIS ROOM HE IS ALERT AND ORIENTED TO SELF AND PLACE. FAMILY AT BEDSIDE, HE IS EATING AND TOLERATING FOOD WELL. NO COMPLAINS AT THIS TIME.
--- NOTE | 2025-05-20 16:26 | PC.NURSE ---
DRAIN 1450 CC OF BLOODY FLUID FROM LEFT UROSTOMY.
[2025-05-20] MEDS: DOXYCYCLINE INJ 100 MG in SODIUM CHLORIDE 0.9% (POP) 100 ML IV (16:43)
[2025-05-20 17:16] LABS: Hematocrit 29.2 % (41.0-53.0); Hemoglobin 9.9 g/dL (13.5-16.0)
[2025-05-20] MEDS: ACETAMINOPHEN 325 MG TABLET 650 MG PO (17:26)
--- NOTE | 2025-05-20 18:07 | PC.NURSE ---
DR. RAHMAN MADE AWARE PT HAS SENSATION TO URINATE DENIES PAIN. DR. RAHMAN STATES DR. KWOK SHOULD BE IN TODAY TO ASSESS PT. NO NEW ORDERS AT THIS MOMENT, BLADDER SCAN [id number].
--- NOTE | 2025-05-20 18:24 | PC.NURSE ---
PATIENT TO MRI, ALERT AND ORIENTED TO SELF AND PLACE.
--- NOTE | 2025-05-20 20:34 | PC.NURSE ---
Asked Dr. Carlson via phone if Coude catheter that was ordered can be inserted by him as ER doctor is busy at this time. Dr. Jones said to keep calling ER doctor as it has been told to him by morning team that the procedure should be done by ER doctor and should be completed tonight.
--- NOTE | 2025-05-20 23:03 | PC.NURSE ---
Dr. Espinal in to see patient. Patient noted to have a bloody output with blood clots of 525 cc from left nephrostomy tube.
[2025-05-20] MEDS: LIDOCAINE JELLY 2% (Urojet) 10 ML TUBE TOP (23:52)
[2025-05-21] VITALS (19 sets, daily range): BP systolic 110–126; BP diastolic 58–73; PULSE 80–98; RESP 16–23; TEMP 36.2–37.2; O2SAT 95–100; BMI 17.5; BMI 13.0
--- NOTE | 2025-05-21 | XR_ITS ---
Ultrasound-guided needle placement right subclavian vein Permanent tunneled dialysis catheter insertion, percutaneous Fluoroscopy AP chest, portable, single view. Date and time of procedure: May 21, 2025 12 noon INDICATIONS: Patient is a temporary dialysis catheter, need for long-term dialysis for renal failure Informed consent provided Technique: A timeout was completed verifying correct patient, procedure, site, positioning, and special equipment if applicable. The patient was placed in a dependent position appropriate for dialysis catheter placement based on the vein to be cannulated. The patient'sright neck and chest was prepped and draped in sterile fashion. Maximum Sterile Barrier Technique used including cap, mask, sterile gown, sterile gloves, and sterile full body drape. If ultrasound technique used: sterile gel and sterile probe covers. Hand Hygiene performed using proper scrub, soap and water, or alcohol-based hand rub. 1% lidocaine was used to anesthetize the surrounding skin area The [employer] portable ultrasound apparatus utilized to confirm patency of the right subclavian vein Utilizing ultrasonographic guidance successful 21-gauge needle puncture into the right subclavian vein Ultrasound images were recorded and stored. Vessel micropuncture was performed with 21-gauge needle. 0.18 wire guide is introduced into the vein. 0.18 wire is introduced into the vena cava under fluoroscopy. Subcutaneous tunnel formed in the upper chest. Permanent tunneled dialysis catheter placed in the subcutaneous tunnel. Dilators were introduced over the J-wire guide. Tunneled dialysis catheter is introduced through a dilator with venous sheath into the superior vena cava under fluoroscopic guidance. The catheter is sutured in place to the skin and a sterile dressing applied. Perfusion to the extremity distal to the point of catheter insertion is checked and found to be adequate Attending radiologist was present for the entire procedure Estimated blood loss2 cc. The patient tolerated the procedure well and there were no complications Impression: Successful ultrasound-guided needle placement right subclavian vein Successful permanent tunneled dialysis catheter insertion, percutaneous Fluoroscopy 0.1 minute one spot fluoroscopic chest film. AP chest performed at completion procedure demonstrates satisfactory position dialysis catheter. May use dialysis catheter.
--- NOTE | 2025-05-21 | XR_ITS ---
Examination: IR percutaneous nephrostomy catheter exchange,, right Nephrostogram Fluoroscopy AP abdomen single view Date and time: May 21, 2025 1340 hours INDICATIONS: Nonfunctioning right nephrostomy catheter, need for replacement TECHNIQUE AND FINDINGS: Informed consent provided. Timeout performed. Skin prepped over the right flank and sterile drape was applied, maximum neurosurgery technique 1019 1% lidocaine administered for local anesthesia Successful placement of a 0.35 wire guidance through the nephrostomy catheter with removal followed by replacement with a 12 [place] new nephrostomy catheter in satisfactory position Hand injection 10 cc Cystografin demonstrates satisfactory position of the nephrostomy catheter Fluoroscopy 1.2 minutes radiation dose 98.97 mg IMPRESSION: Successful right nephrostomy catheter exchange
--- NOTE | 2025-05-21 00:13 | PC.NURSE ---
Dr. Omer was made aware that a viveros cath was placed by GRAHAM Jacobs RN, at [id number] on 05/20/25. to let the day team know.
--- NOTE | 2025-05-21 04:57 | PC.NURSE ---
Dr. Carlson made aware of the preliminary results of blood culture. No orders received at this time.
[2025-05-21 06:04] LABS: Basophils # (Auto) 0.0 Thou/mm3 (0.0-0.2); Basophils % (Auto) 0 % (0-2.5); Eosinophils # (Auto) 0.0 Thou/mm3 (0.0-0.5); Eosinophils % (Auto) 0 % (0-10); Hematocrit 26.0 % (41.0-53.0); Immature Granulocytes Auto 0.06 Thou/mm3 (0.00-0.00); Lymphocytes # (Auto) 0.5 Thou/mm3 (1.0-4.8); Lymphocytes % (Auto) 4 % (10-50); Mean Corpuscular HGB Conc 33.1 g/dl (31.0-37.0); Mean Corpuscular Hemoglobin 30.2 pg (25.0-35.0); Mean Corpuscular Volume 91 fL (80-100); Monocytes # (Auto) 1.0 Thou/mm3 (0.0-0.8); Monocytes % (Auto) 7 % (0-12); Neutrophils # (Auto) 11.9 Thou/mm3 (1.8-7.7); Neutrophils % (Auto) 88 % (37-80); Nucleated Red Blood Cell # 0.00 Thou/mm3 (0.00-0.00); Nucleated Red Blood Cell % 0 /100 WBC (0); Platelet Count 217 Thou/mm3 (140-440); RDW Standard Deviation 45.9 fL (35.1-43.9); Red Blood Count 2.85 Miln/mm3 (4.50-5.90); White Blood Count 13.5 Thou/mm3 (3.8-10.6)
[2025-05-21 06:28] LABS: Alanine Aminotransferase 12 U/L (10-49); Albumin, Serum 3.1 gm/dL (3.4-4.8); Albumin/Globulin Ratio 1.2 (1.2-2.2); Alkaline Phosphatase 89 U/L (46-116); Anion Gap 12 (7-16); Aspartate Amino Transferase 14 U/L (0-34); BUN/Creatinine Ratio 11 Ratio (12-20); Bilirubin,Total 0.3 mg/dL (0.3-1.2); Blood Urea Nitrogen 42 mg/dL (9-23); Calcium 8.1 mg/dL (8.3-10.6); Calcium (Corrected) 8.8 mg/dL (8.5-10.1); Carbon Dioxide 27.0 mMol/L (20.0-31.0); Chloride 100 mMol/L (98-107); Creatinine (Component) 3.9 mg/dL (0.6-1.3); Estimated Creatinine Clearance 17.9 mL/min (>60); Globulin 2.6 gm/dL (2.3-3.5); Glucose 121 mg/dL (74-106); Magnesium 1.6 mg/dL (1.6-2.6); Osmolality,Calculated 289 (275-295); Phosphorous 4.2 mg/dL (2.4-5.1); Potassium 3.6 mMol/L (3.4-5.1); Sodium 139 mMol/L (136-145); Total Protein 5.7 gm/dL (5.7-8.2); eGFR 17 See Note
[2025-05-21 06:35] LABS: Hemoglobin 8.6 g/dL (13.5-16.0)
--- NOTE | 2025-05-21 08:31 | ESPR_ITS ---
Documentation for date of: 05/21/25 Subjective Subjective Interval history: Amarjit Meade is a 62-year-old male with no past medical history presented for mechanical fall at work. States that he fell forward because his lower back has been giving out for the past few months. He has also been having chorea-like, jerky movements for the past few months and is supposed to see neurology but is having insurance issues. Has not seen a physician in many years. Per , patient has been having enuresis for the past few weeks and claims patient is stubborn and does not want to see a physician. Patient's urine is normally green due to vitamin supplements. Patient admits that he does not drink very much water nor does he urinate very much. Denies pain on urination, increase in urinary urgency, frequency or hesitancy, interrupted stream, any history of prostate issues, flank pain, or recent weight loss. Denies fever, chills, shortness of breath or chest pain. Denies family history of any kidney disease or dialysis. 05/17/25: No acute overnight events. Patient seen and examined at bedside with . No new complaints. Denies chest pain, SOB or fever. Had viveros inserted yesterday with kristofer blood on insertion. CT abd pelvis showed advanced b/l hydronephrosis, extensive abdominal and pelvic lymphadenopathy, distended urinary bladder with marked irregular bladder wall thickening, enzo posteriorly most consistent with bladder cancer. Bicarb 18, BUN still elevated 84, Cr still elevated 6.4, GFR 9, Mg high 2.7. 05/18/25: No acute overnight events. Patient seen and examined at bedside with . Vitals and labs reviewed. Plan to start hemodialysis today given no improvement with nephrostomy tubes or viveros. Lymph node biopsy not able to be completed due to LN's being too small. No new complaints. Denies chest pain, SOB or fever. 05/19/25: Patient seen and examined at bedside with . Patient is feeling better today. No new complaints. Denies chest pain, SOB or fever. Bladder scan showed 487 mL retained. Viveros appears to be placed in prostate, spoke with nurse to further advance viveros. Recommend pelvic lymph node biopsy. Cr still elevated 6.3, BUN decreased to 63. 7: Patient seen and examined at bedside with . No new complaints. Denies chest pain, SOB or fever. Choreiform movements much improved. Viveros bag is bloody with Hgb down trending 9.3->8.3->7.9. Cr still elevated 6.0, BUN continues to downtrend 48. 05/21/25: Patient seen and examined at bedside with . Headache much improved, lying still and comfortably in bed. Denies chest pain, SOB or fever. Cr decreased 6->3.9, BUN still elevated 42. Lt nephrostomy tube re-inserted and draining well, Rt nephrostomy tube still needs to be replaced. Hold HD today, plan for HD tomorrow, will likely need perm cath tomorrow. Spoke with Dr. Kent who plans for possible cystoscopy tomorrow without intervention. Pelvic lymph node biopsy not able to be done. Exam Vital Signs Temp Pulse Resp BP Pulse Ox O2 Del Method O2 Flow Rate 97.3 F 92 19 125/63 98 Nasal Cannula 2 05/21/25 04:00 05/21/25 04:00 05/21/25 04:00 05/21/25 04:00 05/21/25 04:00 05/21/25 04:00 05/21/25 04:00 Narrative Exam General: AOx3, thin, older than stated age, no acute distress, chorea-like movements resolved HEENT: NC/AT, mucous membranes dry, bilateral sclera anicteric, R IJ cath in place Cardiovascular: regular rate and rhythm, S1/S2 present, no murmurs appreciated Pulmonary: bilateral mild coarse breath sounds Abdominal: soft, non-tender, non-distended, no rebound/guarding, bowel sounds present, Lt and Rt nephrostomy tubes in place posteriorly Extremities: no peripheral edema Skin: warm and dry, intact, no rashes Neuro CN II-XII grossly intact, no focal deficits, alert, following commands Objective Labs 05/21/25 04:15 05/21/25 04:15 Labs: Laboratory Results - last 24 hr 05/20/25 05/20/25 05/20/25 05:07 06:27 08:55 WBC RBC Hgb Hct MCV MCH MCHC RDW Std Deviation Plt Count Neut % (Auto) Lymph % (Auto) Bradford % (Auto) Eos % (Auto) Baso % (Auto) Neut # (Auto) Lymph # (Auto) Bradford # (Auto) Eos # (Auto) Baso # (Auto) Immature Gran # (Auto) Absolute Nucleated RBC Immature Gran % Nucleated RBC % ESR 54 H PT 11.3 INR 1.0 APTT 24.6 Sodium Potassium Chloride Carbon Dioxide Anion Gap BUN Creatinine Estim Creat Clear Calc eGFR BUN/Creatinine Ratio Glucose Calculated Osmolality Lactic Acid Calcium Corrected Calcium Phosphorus Magnesium Total Bilirubin AST ALT Alkaline Phosphatase C-Reactive Prot, Quant 21.1 H Total Protein Albumin Globulin Albumin/Globulin Ratio Procalcitonin 7.46 H Blood Type O Positive Antibody Screen NEGATIVE Crossmatch See Detail Blood Bank Wristband ID Yes 05/20/25 05/20/25 05/21/25 10:50 16:36 04:15 WBC 13.5 H D RBC 2.85 L Hgb 9.9 L D 8.6 L Hct 29.2 L 26.0 L MCV 91 MCH 30.2 MCHC 33.1 RDW Std Deviation 45.9 H Plt Count 217 Neut % (Auto) 88 H Lymph % (Auto) 4 L Bradford % (Auto) 7 Eos % (Auto) 0 Baso % (Auto) 0 Neut # (Auto) 11.9 H Lymph # (Auto) 0.5 L Bradford # (Auto) 1.0 H Eos # (Auto) 0.0 Baso # (Auto) 0.0 Immature Gran # (Auto) 0.06 H Absolute Nucleated RBC 0.00 Immature Gran % 0 Nucleated RBC % 0 ESR PT INR APTT Sodium 139 Potassium 3.6 D Chloride 100 Carbon Dioxide 27.0 Anion Gap 12 BUN 42 H Creatinine 3.9 H D Estim Creat Clear Calc 17.9 L eGFR 17 L BUN/Creatinine Ratio 11 L Glucose 121 H Calculated Osmolality 289 Lactic Acid 1.2 Calcium 8.1 L Corrected Calcium 8.8 Phosphorus 4.2 Magnesium 1.6 Total Bilirubin 0.3 AST 14 ALT 12 Alkaline Phosphatase 89 C-Reactive Prot, Quant Total Protein 5.7 Albumin 3.1 L Globulin 2.6 Albumin/Globulin Ratio 1.2 Procalcitonin Blood Type Antibody Screen Crossmatch Blood Bank Wristband ID Quality Measures Quality Measures VTE prophylaxis Assessment & Plan Assessment Current Active Medications: Generic Name Dose Route Start Last Admin Trade Name Freq PRN Reason Stop Dose Admin Acetaminophen 650 mg 05/16/25 10:21 05/20/25 17:26 Acetaminophen 325 Mg Tablet PO 06/15/25 10:20 650 mg Q6H PRN Administration Fever >100.4 or pain Protocol Heparin Sodium (Porcine) 3,100 unit 05/18/25 18:21 05/20/25 12:02 Heparin Sod Inj 1000 Unit/Ml Vial 10 Ml INDWELLCAT 06/01/25 18:20 3,100 unit X1 PRN Administration DIALYSIS Hydromorphone HCl 1 mg 05/18/25 10:45 05/20/25 07:50 Hydromorphone Inj 2 Mg/Ml Vial IVP 05/23/25 10:44 1 mg Q4HR PRN Administration PAIN Protocol Lactated Ringer's 1,000 mls @ 75 mls/hr 05/16/25 10:48 05/17/25 23:13 Lactated Ringers IV 06/15/25 10:47 75 mls/hr .[id number] SHADY Administration Ceftriaxone Sodium/Dextrose 1 gm in 50 mls @ 100 mls/hr 05/20/25 10:33 05/20/25 12:10 Rocephin/D5w 1gm Iv Premix IV 05/27/25 10:32 100 mls/hr QDAY SHADY Administration Doxycycline Hyclate 100 mg/ 100 mls @ 100 mls/hr 05/20/25 12:15 05/20/25 20:08 Sodium Chloride IV 05/27/25 12:14 Not Given BID SHADY Magnesium Sulfate 4 gm in 50 mls @ 12.5 mls/hr 05/21/25 07:34 Magnesium Sulfate Ivpb IV 05/21/25 11:33 X1 ONE Ondansetron HCl 4 mg 05/16/25 10:21 Ondansetron Inj 2 Mg/Ml Inj 2 Ml IVP 06/15/25 10:20 Q6H PRN NAUSEA OR VOMITING Protocol Pantoprazole Sodium 40 mg 05/17/25 09:00 05/20/25 09:51 Pantoprazole Inj 40 Mg Vial IVP 06/16/25 08:59 Not Given QDAY SHADY Plan Amarjit Meade is a 62-year-old male with no past medical history presented for mechanical fall at work due to chorea-like movements, found to have Cr 6.2 and BUN 92 with bladder mass and advanced hydronephrosis. #Obstructive uropathy 2/2 bladder mass causing #Bilateral hydronephrosis #CORINA Patient has no history of kidney disease or any recent lab values to compare. ~30 pack year, quit 04/2025. Reports new enuresis for the past few weeks and jerky movements for a few months, latter ddx likely uremic origin with improvement in movement post dialysis. Ddx includes obstrutive uropathy from possible bladder cancer causing CORINA vs CKD, likely ESRD as NM renal scan showed no renal fx with minimal flow to Lt kidney and reduced flow to Rt kidney CT abd pelvis showed advanced b/l hydronephrosis, extensive abdominal and pelvic lymphadenopathy, distended urinary bladder with marked irregular bladder wall thickening, enzo posteriorly most consistent with bladder cancer. MRI brain showed no mets Paraortic LN biopsy attempted but not done due to too small of LN's. Nephrostomy tubes: b/l placed 05/17, L one fell out 05/19, L one replaced 05/20 Received HD 05/18, 05/19, 05/20 Plan: -Hold HD today, plan for tomorrow -Will need perm cath, plan for tomorrow -Plan to replace R nephrostomy tube -Recommend pelvic lymph node biopsy -F/u NM renal scan -Per urology, recs appreciated: irrigate viveros if has clot retention, at this time not a good candidate for surgical intervention, repeat kidney US in 1 week, possible cystoscopy tomorrow with no interventions #Normocytic anemia #Hyperparathyroidism -Management per primary team. Plan of care discussed with attending Dr. Santana. Joanna Matamoros, DO Internal Medicine PGY-1 Attending Provider Attestation/Addendum Patient seen and examined with resident physician Dr. Matamoros. Note reviewed, agree with findings and recommendations. Patient currently seen in ER. Son at bedside. over the phone. Patient seems to be doing poorly for the last couple of months with involuntary movements. Did not seek medical attention. Have not seen a doctor for some time. patient admits to taking vitamins which is making his urine green. Take some ibuprofen as needed. Admitted with CORINA. Workup showed he has a bladder mass with bilateral hydronephrosis. Spoke to Dr. Hernandez-will come and see the patient tomorrow. Recommended Viveros catheter and once the Viveros was placed in more than 900 mL urine came out. Was bloody. Dr. Hernandez recommended to continue watchful waiting. No bladder irritation. At this point we will hold off on dialysis and biopsy. Suspect severe obstructive uropathy. 05/17/2025 CAT scan showed extensive bilateral hydronephrosis. Bilateral percutaneous nephrostomy tube placements ordered. Pending David recommendations. patient seems to have a chronic hydronephrosis for possibly few months. doubt there is any salvageable kidney. Had a long conversation with the -if no improvement in the renal function-he might need temporary dialysis. Pending biopsy of the lymph node in the abdomen. 05/21/2025 patient had percutaneous nephrostomy tubes bilaterally. Viveros catheter was repositioned. His BUN and creatinine markedly elevated. Patient resting comfortably. Had a long conversation with the that doubt there is any salvageable kidney especially with extensive bilateral hydronephrosis for quite some time. Could not get a biopsy from the abdomen as it is close to the aorta. Could not get biopsy anywhere else. Spoke to Dr. Davis. patient and agreed for dialysis. Vas-Cath placed by ICU team. Patient so far received 3 dialysis treatments and started to improve. clinically loks better. more alert. chorea is better. MRI brain negative for stroke/mets. Spoke to Dr. Hernandez-will plan for cystoscopy tomorrow.
--- NOTE | 2025-05-21 08:53 | PC.SS ---
SS follow up note; SS was informed by Team A that patient will be a new dialysis patient. SS informed them that SS would contact Financial Counselor. SS spoke to Arcelia the Financial counselor in regards to patients medi-miguel status. She informed SS that on 05/17 she emailed [employer] and will contact them again today to verify if they had contacted patient, SS will also update patient and inform him that The medical worker will be contacting him.
--- NOTE | 2025-05-21 09:16 | ESPR_ITS ---
<Statement entered by Abhay Rojas MD - 05/21/25 14:18> Patient was seen and examined at the bedside. No acute overnight events reported. Patient got Viveros catheter which has been draining urine mixed with blood. Left nephrostomy tube has been draining as well. Patient was doing well and choreiform movements have been pretty much controlled. Patient denied any fever spikes or pain. MRI brain was negative for mass tumor no acute infarct but did show some atrophy. Renal scan showed normal renal function both kidneys. Patient will have replacement of nephrostomy tube likely today for permanent catheter placement for dialysis. Patient will be getting cystoscopy n.p.o. after midnight. Coagulation panel ordered. / blood cultures grew GPC therefore vancomycin was started. Doxycycline has been discontinued. Mentation was repleted. All labs and orders were reviewed. I discussed and supervised with the management intern physician who took care of this patient. I personally saw and examined the patient. I agree with most of the assessment and plan. Disclaimer: Despite multiple revisions, due to the dictation software being used, the document bellow may not be free of grammatical errors including phonetic/typographic errors. However, this does not deter from our commitment to providing health care in the patient's best interest in mind. Plan of care discussed with attending Physician Dr. Ryan Rojas MD PGY-3 Documentation for date of: 05/21/25 Subjective Subjective Interval history: No overnight events. Evaluated at bedside. Per nursing staff, they were able to replace the viveros cathether, which drained 950mL overnight. His left nephrostomy tube drained 2975mL, right nephrostomy still has no drainge. MRI brain negative for mass, tumor, or acute infarct, but does show prominent atrophy. Renal scan reports no renal function in both kidneys. Plan for Perm cathetar placement, right nephrostomy tube exchange, and cystoscopy tomorrow. Exam Vital Signs Temp Pulse Resp BP Pulse Ox O2 Del Method O2 Flow Rate 98.9 F 93 19 119/70 97 Nasal Cannula 2 05/21/25 08:00 05/21/25 08:00 05/21/25 08:00 05/21/25 08:00 05/21/25 08:00 05/21/25 08:00 05/21/25 08:00 Narrative Exam General: malnourished, frail in no distress. Oriented x 3. Febrile. Skin: No rash, unusual bruising or prominent lesions Head: Normocephalic, atraumatic, no visible or palpable masses, depressions, or scaring. Eyes: conjunctiva clear, sclera non-icteric, no exudates or hemorrhages. Near sighted. Heart: Regular rate and rhythm Lungs: Clear to auscultation. No rales, wheeze, or rhonchi Abdomen: No tenderness, guarding or rigidity. Palpable bladder mass. Back: Right nephrostomy tube in place. Left nephrostomy tube in place. Extremities: No amputations or deformities, cyanosis, edema or varicosities, peripheral pulses intact. Hemodialysis catheter in place at right internal jugular vein. Neurologic: Alert and oriented x 3, chorea like movements decreased. Objective Labs 05/22/25 04:45 05/22/25 04:45 Labs: Laboratory Results - last 24 hr 05/20/25 05/20/25 05/20/25 05:07 08:55 10:50 WBC RBC Hgb Hct MCV MCH MCHC RDW Std Deviation Plt Count Neut % (Auto) Lymph % (Auto) Mccone % (Auto) Eos % (Auto) Baso % (Auto) Neut # (Auto) Lymph # (Auto) Mccone # (Auto) Eos # (Auto) Baso # (Auto) Immature Gran # (Auto) Absolute Nucleated RBC Immature Gran % Nucleated RBC % ESR 54 H Sodium Potassium Chloride Carbon Dioxide Anion Gap BUN Creatinine Estim Creat Clear Calc eGFR BUN/Creatinine Ratio Glucose Calculated Osmolality Lactic Acid 1.2 Calcium Corrected Calcium Phosphorus Magnesium Total Bilirubin AST ALT Alkaline Phosphatase C-Reactive Prot, Quant 21.1 H Total Protein Albumin Globulin Albumin/Globulin Ratio Procalcitonin 7.46 H Blood Type O Positive Antibody Screen NEGATIVE Crossmatch See Detail Blood Bank Wristband ID Yes 05/20/25 05/21/25 16:36 04:15 WBC 13.5 H D RBC 2.85 L Hgb 9.9 L D 8.6 L Hct 29.2 L 26.0 L MCV 91 MCH 30.2 MCHC 33.1 RDW Std Deviation 45.9 H Plt Count 217 Neut % (Auto) 88 H Lymph % (Auto) 4 L Mccone % (Auto) 7 Eos % (Auto) 0 Baso % (Auto) 0 Neut # (Auto) 11.9 H Lymph # (Auto) 0.5 L Mccone # (Auto) 1.0 H Eos # (Auto) 0.0 Baso # (Auto) 0.0 Immature Gran # (Auto) 0.06 H Absolute Nucleated RBC 0.00 Immature Gran % 0 Nucleated RBC % 0 ESR Sodium 139 Potassium 3.6 D Chloride 100 Carbon Dioxide 27.0 Anion Gap 12 BUN 42 H Creatinine 3.9 H D Estim Creat Clear Calc 17.9 L eGFR 17 L BUN/Creatinine Ratio 11 L Glucose 121 H Calculated Osmolality 289 Lactic Acid Calcium 8.1 L Corrected Calcium 8.8 Phosphorus 4.2 Magnesium 1.6 Total Bilirubin 0.3 AST 14 ALT 12 Alkaline Phosphatase 89 C-Reactive Prot, Quant Total Protein 5.7 Albumin 3.1 L Globulin 2.6 Albumin/Globulin Ratio 1.2 Procalcitonin Blood Type Antibody Screen Crossmatch Blood Bank Wristband ID Quality Measures Quality Measures VTE prophylaxis (SCDs) Assessment & Plan Assessment Current Active Medications: Generic Name Dose Route Start Last Admin Trade Name Freq PRN Reason Stop Dose Admin Acetaminophen 650 mg 05/16/25 10:21 05/20/25 17:26 Acetaminophen 325 Mg Tablet PO 06/15/25 10:20 650 mg Q6H PRN Administration Fever >100.4 or pain Protocol Heparin Sodium (Porcine) 3,100 unit 05/18/25 18:21 05/20/25 12:02 Heparin Sod Inj 1000 Unit/Ml Vial 10 Ml INDWELLCAT 06/01/25 18:20 3,100 unit X1 PRN Administration DIALYSIS Hydromorphone HCl 1 mg 05/18/25 10:45 05/20/25 07:50 Hydromorphone Inj 2 Mg/Ml Vial IVP 05/23/25 10:44 1 mg Q4HR PRN Administration PAIN Protocol Lactated Ringer's 1,000 mls @ 75 mls/hr 05/16/25 10:48 05/17/25 23:13 Lactated Ringers IV 06/15/25 10:47 75 mls/hr .[id number] SHADY Administration Ceftriaxone Sodium/Dextrose 1 gm in 50 mls @ 100 mls/hr 05/20/25 10:33 05/20/25 12:10 Rocephin/D5w 1gm Iv Premix IV 05/27/25 10:32 100 mls/hr QDAY SHADY Administration Doxycycline Hyclate 100 mg/ 100 mls @ 100 mls/hr 05/20/25 12:15 05/20/25 20:08 Sodium Chloride IV 05/27/25 12:14 Not Given BID SHADY Magnesium Sulfate 4 gm in 50 mls @ 12.5 mls/hr 05/21/25 07:34 Magnesium Sulfate Ivpb IV 05/21/25 11:33 X1 ONE Ondansetron HCl 4 mg 05/16/25 10:21 Ondansetron Inj 2 Mg/Ml Inj 2 Ml IVP 06/15/25 10:20 Q6H PRN NAUSEA OR VOMITING Protocol Pantoprazole Sodium 40 mg 05/17/25 09:00 05/20/25 09:51 Pantoprazole Inj 40 Mg Vial IVP 06/16/25 08:59 Not Given QDAY SHADY Plan Mr. Meade is a 64M with unknown past medical history presents for ground level fall. Pt is a poor historian, history obtained from at bedside. Pt denies midline tenderness, neck or head injury. Pt has a chorea-like repetitive movement at baseline, which the states started a few weeks ago. US Bladder shows a bladder mass with bilateral hydronephrosis. Admitted for CORINA with creatinine of 6.2. Hemodialysis present on right IJ, pt continues to receive dialysis. Chorea-like movement greatlty decreased. Left nephrostomy tube replaced in IR. Plan for right nephrostomy tube change today. NM renal study show no renal function in both kidneys. Hold HD today, plan for tomorrow with perm cath. Plan for cystoscopy. #Newly Diagnosed ESRD #CORINA intrarenal vs Post obstructive uropathy #B/L hydronephrosis #Bladder mass Bilateral hydronephrosis with bladder mass on US, confirmed with CT abdomen. Solid nodule noted on bladder wall measuring 2.8 x 1.9 x 1.4cm - bilateral nephrostomy tubes inserted, left one dislodged post procedure, right one intact but not draining. - Left nephrostomy tube replaced in IR on 05/20. Drained 3L post insertion. - Plan for right nephrostomy tube change. - viveros catheter replaced, drained 900mL on 05/21. - Urology consulted: patient is not a good candidate for any surgical intervention at this time, Dr. Kent will re-evaluate. Recommends US for kidneys in 1 week, repeat CAT scan with stone protocol in 1 week. Irrigate viveros cathether only if pt has clot retention. - Nephrology consulted: dialysis catherter inserted at right IJ, hold hemodialysis today, plan for tomorrow with perm cath insertion. - Plan for possible pelvic lymph node biopsy with IR likely tomorrow and cystoscopy tomorrow per urology recs - NM renal scan shows no renal function. - strict I/O - renal dose medication - Daily CMP, trend electrolyte. #Pneumonia #CAUTI vs Catheter-related bloodstream infection #1/[address] chest shows significant bibasilar pneumonia, elevated WBC today from 16..7 -> 22.4 -> 13.5, temp 98.7F today. - elevated ESR, prolactin, CRP, likely due to poor renal function and tumor mass - one of the blood cultures grow gram positive cocci @ 24H. - Continue Rocephin 1g QD and DC doxycycline 100mg BID - Started vancomycin, pharmacy to dose. - Repeated Blood cultures #chorea-like movement - Related to ?azotemia - Concern for brain metastases - MRI Brain shows prominent atrophy, otherwise no acute infarct, mass, or midline shift. - Oncology consulted: Tumor markers: CA 19-9 pending. CEA elevated, PSA negative. #Anemia of chronic disease Hgb 8.8 -> 9.3 -> 8.3 ->7.9 -> 9.9 post transfusion 1 unit. 8.6 today, concerns for bleeding at tumor site. - A unit of blood was transfused during dialysis on 05/20, post transfusion h/h 9.9/9.2 - Retacrit 10,000unit x1 - daily CBC, if falls below 7, consider blood transfusion - EPO given , iron panel. #Hyperparathyroidism PTH 370.5. Ca 8.6 likely secondary to renal failure - follow up out patient Dispo: MedSurg DVT prophylaxis: SCDs GI prophylaxis: Protonix 40 IV Diet: NPO Lines: Peripheral IV, viveros catheter, bilateral nephrostomy tube in place, R IJ hemodialysis catheter Code status: Full code Case discussed with my senior resident Dr. Rojas Case discussed with my attending Dr. Ryan Kirk DO PGY-1 Attending Provider Attestation/Addendum Margie Sutherland DO, attest that I was physically present for the wallace portions of the service and evaluated the patient with the resident and I reviewed and discussed the case with the resident and agree with the resident's findings and plans of care as documented above Patient seen and evaluated this AM. He states he is doing well. Abdomen is no longer distended. Viveros catheter was placed with dark copper/ blood tinged urine. Patient patient noted to have 1 out of 2 gram-positive cocci in blood cultures. Will start patient on vancomycin and DC doxycycline at this time. Patient has otherwise been afebrile. Patient to undergo placement of right nephrostomy tube since it has not been functioning. Plan for cystoscopy today by urology. Will keep patient n.p.o. after midnight. MRI results reviewed with family. Involuntary movement has subsided while patient has occasional twitching.
[2025-05-21 10:02] LABS: INR 1.2 (0.9-1.3); Partial Thromboplastin Time 40.9 Seconds (22.0-36.0); Prothrombin Time 12.7 Seconds (9.0-12.2)
[2025-05-21] MEDS: Magnesium Sulfate 4 GM Ivpb 4 GM/50 ML BAG IV (10:26)
[2025-05-21] MEDS: cefTRIAXone/D5w 1gm IV premix 1 GM/50 ML BAG IV (10:27)
--- NOTE | 2025-05-21 11:45 | PD.RESPRO ---
Documentation for date of: 05/21/25 Exam Vital Signs Temp Pulse Resp BP Pulse Ox O2 Del Method O2 Flow Rate 98.9 F 93 19 119/70 97 Nasal Cannula 2 05/21/25 08:00 05/21/25 08:00 05/21/25 08:00 05/21/25 08:00 05/21/25 08:00 05/21/25 08:00 05/21/25 08:00 Objective Labs 05/21/25 04:15 05/21/25 04:15 Labs: Laboratory Results - last 24 hr 05/20/25 05/21/25 16:36 04:15 WBC 13.5 H D RBC 2.85 L Hgb 9.9 L D 8.6 L Hct 29.2 L 26.0 L MCV 91 MCH 30.2 MCHC 33.1 RDW Std Deviation 45.9 H Plt Count 217 Neut % (Auto) 88 H Lymph % (Auto) 4 L Foster % (Auto) 7 Eos % (Auto) 0 Baso % (Auto) 0 Neut # (Auto) 11.9 H Lymph # (Auto) 0.5 L Foster # (Auto) 1.0 H Eos # (Auto) 0.0 Baso # (Auto) 0.0 Immature Gran # (Auto) 0.06 H Absolute Nucleated RBC 0.00 Immature Gran % 0 Nucleated RBC % 0 PT 12.7 H INR 1.2 APTT 40.9 H D Sodium 139 Potassium 3.6 D Chloride 100 Carbon Dioxide 27.0 Anion Gap 12 BUN 42 H Creatinine 3.9 H D Estim Creat Clear Calc 17.9 L eGFR 17 L BUN/Creatinine Ratio 11 L Glucose 121 H Calculated Osmolality 289 Calcium 8.1 L Corrected Calcium 8.8 Phosphorus 4.2 Magnesium 1.6 Total Bilirubin 0.3 AST 14 ALT 12 Alkaline Phosphatase 89 Total Protein 5.7 Albumin 3.1 L Globulin 2.6 Albumin/Globulin Ratio 1.2 Quality Measures Quality Measures VTE prophylaxis Assessment & Plan Assessment Current Active Medications: Generic Name Dose Route Start Last Admin Trade Name Freq PRN Reason Stop Dose Admin Acetaminophen 650 mg 05/16/25 10:21 05/20/25 17:26 Acetaminophen 325 Mg Tablet PO 06/15/25 10:20 650 mg Q6H PRN Administration Fever >100.4 or pain Protocol Heparin Sodium (Porcine) 3,100 unit 05/18/25 18:21 05/20/25 12:02 Heparin Sod Inj 1000 Unit/Ml Vial 10 Ml INDWELLCAT 06/01/25 18:20 3,100 unit X1 PRN Administration DIALYSIS Hydromorphone HCl 1 mg 05/18/25 10:45 05/20/25 07:50 Hydromorphone Inj 2 Mg/Ml Vial IVP 05/23/25 10:44 1 mg Q4HR PRN Administration PAIN Protocol Ceftriaxone Sodium/Dextrose 1 gm in 50 mls @ 100 mls/hr 05/20/25 10:33 05/21/25 10:27 Rocephin/D5w 1gm Iv Premix IV 05/27/25 10:32 100 mls/hr QDAY SHADY Administration Vancomycin HCl 200 mls @ 120 mls/hr 05/21/25 10:30 Vancomycin/Water 1gm Ivpb IV 05/21/25 12:09 X1 ONE Protocol Ondansetron HCl 4 mg 05/16/25 10:21 Ondansetron Inj 2 Mg/Ml Inj 2 Ml IVP 06/15/25 10:20 Q6H PRN NAUSEA OR VOMITING Protocol Pantoprazole Sodium 40 mg 05/17/25 09:00 05/21/25 10:28 Pantoprazole Inj 40 Mg Vial IVP 06/16/25 08:59 40 mg QDAY SHADY Administration Pharmacy Consult 1 each 05/21/25 10:00 Vancomycin Pharmacy To Dose 1 Each Each IV 06/20/25 09:59 QDAY PRN CONSULT
--- NOTE | 2025-05-21 11:58 | PC.SS ---
SS follow up note; Nephrostomy tube placement, possible biopsy. Patient will be a new dialysis patient and will need chair time. SS contacted Claudia from [facility] dialysis and she informed SS once patient has [facility]i-miguel SS could send clinicals to get patient established. SS will stand by for further needs.
[2025-05-21] MEDS: VANCOMYCIN/WATER 1GM IVPB 200 ML IV (12:04)
[2025-05-21] MEDS: fentaNYL CIT INJ 50 mCg/ML AMP 2ML 125 MCG IVP (13:45)
[2025-05-21] MEDS: HEPARIN SOD LOCK SYR 100 UNIT/ML 500 UNIT STFIELD (13:46)
[2025-05-21] MEDS: LIDOCAINE INJ PF 1% 30 ML VIAL 14 ML INFL (13:46)
[2025-05-21] MEDS: HEPARIN SOD INJ 1000 UNIT/ML VIAL 3300 UNIT INDWELLCAT (14:18)
--- NOTE | 2025-05-21 15:11 | PC.NURSE ---
1511 patient is awake, alert, breathing unlabored s/p perm cath insertion to right subclavian, temporary dialysis catheter removal and right nephrostomy tube exchange. Report given to Wilmer GARCIA, patient transferred back to room [id number]
[2025-05-21] MEDS: MELATONIN 3 MG TABLET PO (20:08)
[2025-05-22] VITALS (31 sets, daily range): BP systolic 99–137; BP diastolic 65–94; PULSE 73–113; RESP 12–21; TEMP 36.3–36.9; O2SAT 93–100
[2025-05-22 06:19] LABS: Basophils # (Auto) 0.0 Thou/mm3 (0.0-0.2); Basophils % (Auto) 0 % (0-2.5); Eosinophils # (Auto) 0.1 Thou/mm3 (0.0-0.5); Eosinophils % (Auto) 1 % (0-10); Hematocrit 25.7 % (41.0-53.0); Immature Granulocytes Auto 0.05 Thou/mm3 (0.00-0.00); Lymphocytes # (Auto) 0.6 Thou/mm3 (1.0-4.8); Lymphocytes % (Auto) 5 % (10-50); Mean Corpuscular HGB Conc 32.7 g/dl (31.0-37.0); Mean Corpuscular Hemoglobin 29.4 pg (25.0-35.0); Mean Corpuscular Volume 90 fL (80-100); Monocytes # (Auto) 0.9 Thou/mm3 (0.0-0.8); Monocytes % (Auto) 7 % (0-12); Neutrophils # (Auto) 10.2 Thou/mm3 (1.8-7.7); Neutrophils % (Auto) 86 % (37-80); Nucleated Red Blood Cell # 0.00 Thou/mm3 (0.00-0.00); Nucleated Red Blood Cell % 0 /100 WBC (0); Platelet Count 233 Thou/mm3 (140-440); RDW Standard Deviation 44.2 fL (35.1-43.9); Red Blood Count 2.86 Miln/mm3 (4.50-5.90); White Blood Count 11.9 Thou/mm3 (3.8-10.6)
[2025-05-22 06:29] LABS: INR 1.0 (0.9-1.3); Partial Thromboplastin Time 34.7 Seconds (22.0-36.0); Prothrombin Time 11.4 Seconds (9.0-12.2)
[2025-05-22 06:37] LABS: Alanine Aminotransferase 25 U/L (10-49); Albumin, Serum 3.2 gm/dL (3.4-4.8); Albumin/Globulin Ratio 1.2 (1.2-2.2); Alkaline Phosphatase 93 U/L (46-116); Anion Gap 13 (7-16); Aspartate Amino Transferase 25 U/L (0-34); BUN/Creatinine Ratio 14 Ratio (12-20); Bilirubin,Total 0.3 mg/dL (0.3-1.2); Blood Urea Nitrogen 56 mg/dL (9-23); Calcium 8.4 mg/dL (8.3-10.6); Calcium (Corrected) 9.0 mg/dL (8.5-10.1); Carbon Dioxide 26.0 mMol/L (20.0-31.0); Chloride 99 mMol/L (98-107); Creatinine (Component) 4.0 mg/dL (0.6-1.3); Estimated Creatinine Clearance 17.4 mL/min (>60); Globulin 2.7 gm/dL (2.3-3.5); Glucose 110 mg/dL (74-106); Magnesium 1.7 mg/dL (1.6-2.6); Osmolality,Calculated 292 (275-295); Phosphorous 3.9 mg/dL (2.4-5.1); Potassium 3.8 mMol/L (3.4-5.1); Sodium 138 mMol/L (136-145); Total Protein 5.9 gm/dL (5.7-8.2); Vancomycin,Random 8.3 mcg/mL; eGFR 16 See Note
[2025-05-22 06:38] LABS: Hemoglobin 8.4 g/dL (13.5-16.0)
--- NOTE | 2025-05-22 08:33 | ESPR_ITS ---
Documentation for date of: 05/22/25 Subjective Subjective Interval history: Amarjit Meade is a 62-year-old male with no past medical history presented for mechanical fall at work. States that he fell forward because his lower back has been giving out for the past few months. He has also been having chorea-like, jerky movements for the past few months and is supposed to see neurology but is having insurance issues. Has not seen a physician in many years. Per , patient has been having enuresis for the past few weeks and claims patient is stubborn and does not want to see a physician. Patient's urine is normally green due to vitamin supplements. Patient admits that he does not drink very much water nor does he urinate very much. Denies pain on urination, increase in urinary urgency, frequency or hesitancy, interrupted stream, any history of prostate issues, flank pain, or recent weight loss. Denies fever, chills, shortness of breath or chest pain. Denies family history of any kidney disease or dialysis. 05/17/25: No acute overnight events. Patient seen and examined at bedside with . No new complaints. Denies chest pain, SOB or fever. Had viveros inserted yesterday with kristofer blood on insertion. CT abd pelvis showed advanced b/l hydronephrosis, extensive abdominal and pelvic lymphadenopathy, distended urinary bladder with marked irregular bladder wall thickening, enzo posteriorly most consistent with bladder cancer. Bicarb 18, BUN still elevated 84, Cr still elevated 6.4, GFR 9, Mg high 2.7. 05/18/25: No acute overnight events. Patient seen and examined at bedside with . Vitals and labs reviewed. Plan to start hemodialysis today given no improvement with nephrostomy tubes or viveros. Lymph node biopsy not able to be completed due to LN's being too small. No new complaints. Denies chest pain, SOB or fever. 05/19/25: Patient seen and examined at bedside with . Patient is feeling better today. No new complaints. Denies chest pain, SOB or fever. Bladder scan showed 487 mL retained. Viveros appears to be placed in prostate, spoke with nurse to further advance viveros. Recommend pelvic lymph node biopsy. Cr still elevated 6.3, BUN decreased to 63. 7: Patient seen and examined at bedside with . No new complaints. Denies chest pain, SOB or fever. Choreiform movements much improved. Viveros bag is bloody with Hgb down trending 9.3->8.3->7.9. Cr still elevated 6.0, BUN continues to downtrend 48. 05/21/25: Patient seen and examined at bedside with . Headache much improved, lying still and comfortably in bed. Denies chest pain, SOB or fever. Cr decreased 6->3.9, BUN still elevated 42. Lt nephrostomy tube re-inserted and draining well, Rt nephrostomy tube still needs to be replaced. Hold HD today, plan for HD tomorrow, will likely need perm cath tomorrow. Spoke with Dr. Kent who plans for possible cystoscopy tomorrow without intervention. Pelvic lymph node biopsy not able to be done. 05/22/25: Patient seen and examined in dialysis. No new complaints. Denies chest pain, SOB or fever. Viveros bag bloody. Cr 4.0 and BUN 56. Plan for cystoscopy today with biopsy. Exam Vital Signs Temp Pulse Resp BP Pulse Ox O2 Del Method O2 Flow Rate 97.8 F 82 17 111/73 98 Nasal Cannula 1 05/22/25 07:57 05/22/25 08:30 05/22/25 07:57 05/22/25 08:30 05/22/25 07:57 05/22/25 07:57 05/22/25 07:57 Narrative Exam General: AOx3, thin, older than stated age, no acute distress, chorea-like movements resolved HEENT: NC/AT, mucous membranes dry, bilateral sclera anicteric, R IJ cath in place Cardiovascular: regular rate and rhythm, S1/S2 present, no murmurs appreciated Pulmonary: bilateral mild coarse breath sounds Abdominal: soft, non-tender, non-distended, no rebound/guarding, bowel sounds present, Lt and Rt nephrostomy tubes in place posteriorly, Viveros in place bag bloody Extremities: no peripheral edema Skin: warm and dry, intact, no rashes Neuro CN II-XII grossly intact, no focal deficits, alert, following commands Objective Labs 05/22/25 16:05 05/22/25 04:45 Labs: Laboratory Results - last 24 hr 05/20/25 05/21/25 05/22/25 08:55 04:15 04:45 WBC 11.9 H RBC 2.86 L Hgb 8.4 L Hct 25.7 L MCV 90 MCH 29.4 MCHC 32.7 RDW Std Deviation 44.2 H Plt Count 233 Neut % (Auto) 86 H Lymph % (Auto) 5 L [place] % (Auto) 7 Eos % (Auto) 1 Baso % (Auto) 0 Neut # (Auto) 10.2 H Lymph # (Auto) 0.6 L [place] # (Auto) 0.9 H Eos # (Auto) 0.1 Baso # (Auto) 0.0 Immature Gran # (Auto) 0.05 H Absolute Nucleated RBC 0.00 Immature Gran % 0 Nucleated RBC % 0 PT 12.7 H 11.4 INR 1.2 1.0 APTT 40.9 H D 34.7 Sodium 138 Potassium 3.8 Chloride 99 Carbon Dioxide 26.0 Anion Gap 13 BUN 56 H Creatinine 4.0 H Estim Creat Clear Calc 17.4 L eGFR 16 L BUN/Creatinine Ratio 14 Glucose 110 H Calculated Osmolality 292 Calcium 8.4 Corrected Calcium 9.0 Phosphorus 3.9 Magnesium 1.7 Total Bilirubin 0.3 AST 25 ALT 25 Alkaline Phosphatase 93 Total Protein 5.9 Albumin 3.2 L Globulin 2.7 Albumin/Globulin Ratio 1.2 Random Vancomycin 8.3 Blood Type O Positive Antibody Screen NEGATIVE Crossmatch See Detail Blood Bank Wristband ID Yes Quality Measures Quality Measures VTE prophylaxis (SCDs) Assessment & Plan Assessment Current Active Medications: Generic Name Dose Route Start Last Admin Trade Name Freq PRN Reason Stop Dose Admin Acetaminophen 650 mg 05/16/25 10:21 05/20/25 17:26 Acetaminophen 325 Mg Tablet PO 06/15/25 10:20 650 mg Q6H PRN Administration Fever >100.4 or pain Protocol Epoetin Kvng 10,000 unit 05/22/25 09:00 Epoetin Kvng-Epbx Inj 10,000 Unit/Ml Vial (Non-Esrd) IV 05/22/25 09:01 X1 ONE Heparin Sodium (Porcine) 3,100 unit 05/18/25 18:21 05/20/25 12:02 Heparin Sod Inj 1000 Unit/Ml Vial 10 Ml INDWELLCAT 06/01/25 18:20 3,100 unit X1 PRN Administration DIALYSIS Hydromorphone HCl 1 mg 05/18/25 10:45 05/20/25 07:50 Hydromorphone Inj 2 Mg/Ml Vial IVP 05/23/25 10:44 1 mg Q4HR PRN Administration PAIN Protocol Ceftriaxone Sodium/Dextrose 1 gm in 50 mls @ 100 mls/hr 05/20/25 10:33 05/21/25 10:27 Rocephin/D5w 1gm Iv Premix IV 05/27/25 10:32 100 mls/hr QDAY SHADY Administration Vancomycin HCl 200 mls @ 120 mls/hr 05/22/25 10:00 Vancomycin/Water 1gm Ivpb IV 05/22/25 11:39 X1 ONE Protocol Magnesium Sulfate 4 gm in 50 mls @ 12.5 mls/hr 05/22/25 07:53 Magnesium Sulfate Ivpb IV 05/22/25 11:52 X1 ONE Ondansetron HCl 4 mg 05/16/25 10:21 Ondansetron Inj 2 Mg/Ml Inj 2 Ml IVP 06/15/25 10:20 Q6H PRN NAUSEA OR VOMITING Protocol Pantoprazole Sodium 40 mg 05/17/25 09:00 05/21/25 10:28 Pantoprazole Inj 40 Mg Vial IVP 06/16/25 08:59 40 mg QDAY SHADY Administration Pharmacy Consult 1 each 05/21/25 10:00 Vancomycin Pharmacy To Dose 1 Each Each IV 06/20/25 09:59 QDAY PRN CONSULT Plan Amarjit Meade is a 62-year-old male with no past medical history presented for mechanical fall at work due to chorea-like movements, found to have Cr 6.2 and BUN 92 with bladder mass and advanced hydronephrosis. #Obstructive uropathy 2/2 bladder mass causing #Bilateral hydronephrosis #CORINA Patient has no history of kidney disease or any recent lab values to compare. ~30 pack year, quit 04/2025. Reports new enuresis for the past few weeks and jerky movements for a few months, latter ddx likely uremic origin with improvement in movement post dialysis. Ddx includes obstrutive uropathy from possible bladder cancer causing CORINA vs CKD, likely ESRD as NM renal scan showed no renal fx with minimal flow to Lt kidney and reduced flow to Rt kidney CT abd pelvis showed advanced b/l hydronephrosis, extensive abdominal and pelvic lymphadenopathy, distended urinary bladder with marked irregular bladder wall thickening, enzo posteriorly most consistent with bladder cancer. MRI brain showed no mets Paraortic LN biopsy attempted but not done due to too small of LN's. Pelvic lymph node biopsy not able to be done. Nephrostomy tubes: b/l placed 05/17, L fell out 05/19, L replaced 05/20, R replaced 05/21 Perm cath inserted 05/21 Received HD 05/18, 05/19, 05/20, 05/22 Plan: -HD today, added 1u pRBC -Per urology, recs appreciated: irrigate viveros if has clot retention, at this time not a good candidate for surgical intervention, repeat kidney US in 1 week, cystoscopy today with biopsy #Normocytic anemia #Hyperparathyroidism -Management per primary team. Plan of care discussed with attending Dr. Santana. Joanna Matamoros, DO Internal Medicine PGY-1 Attending Provider Attestation/Addendum Patient seen and examined with resident physician Dr. Matamoros. Note reviewed, agree with findings and recommendations. Patient currently seen in ER. Son at bedside. over the phone. Patient seems to be doing poorly for the last couple of months with involuntary movements. Did not seek medical attention. Have not seen a doctor for some time. patient admits to taking vitamins which is making his urine green. Take some ibuprofen as needed. Admitted with CORINA. Workup showed he has a bladder mass with bilateral hydronephrosis. Spoke to Dr. Hernandez-will come and see the patient tomorrow. Recommended Viveros catheter and once the Viveros was placed in more than 900 mL urine came out. Was bloody. Dr. Hernandez recommended to continue watchful waiting. No bladder irritation. At this point we will hold off on dialysis and biopsy. Suspect severe obstructive uropathy. 05/17/2025 CAT scan showed extensive bilateral hydronephrosis. Bilateral percutaneous nephrostomy tube placements ordered. Pending David recommendations. patient seems to have a chronic hydronephrosis for possibly few months. doubt there is any salvageable kidney. Had a long conversation with the -if no improvement in the renal function-he might need temporary dialysis. Pending biopsy of the lymph node in the abdomen. 05/21/2025 patient had percutaneous nephrostomy tubes bilaterally. Viveros catheter was repositioned. His BUN and creatinine markedly elevated. Patient resting comfortably. Had a long conversation with the that doubt there is any salvageable kidney especially with extensive bilateral hydronephrosis for quite some time. Could not get a biopsy from the abdomen as it is close to the aorta. Could not get biopsy anywhere else. Spoke to Dr. Davis. patient and agreed for dialysis. Vas-Cath placed by ICU team. Patient so far received 3 dialysis treatments and started to improve. clinically loks better. more alert. chorea is better. MRI brain negative for stroke/mets. Spoke to Dr. Hernandez-will plan for cystoscopy tomorrow. 05/22/2025 spoke to his Marisabel. Patient currently seen on dialysis. Tolerating dialysis without any problems. Hemodialysis for 3 hours, 2K, ultrafiltration 0 L, Epogen 6000, no heparin ordered. Plan of care discussed with the dialysis nurse. Please see dialysis flowsheet for further details. Patient had cystoscopy-showed huge bladder tumor. Biopsy was taken. Spoke to Dr. Hernandez-patient needs to go to tertiary care center for huge bladder tumor. detention worker to help him with insurance needs. Outpatient dialysis also should be arranged. Spoke to primary team.
--- NOTE | 2025-05-22 09:06 | PC.SS ---
Addendum entered by Michelle Zafar 05/22/25 14:47: SS follow up note; Patient was supposed to have Biopsy today. Patient will discharge home when medically cleared. Addendum entered by Michelle Zafar 05/22/25 14:40: SS follow up note; SS contacted Arcelia the financial counselor and she informed that she would attempt to contact [employer] again to check status on medi-miguel. Original Note: SS follow up note; SS contacted Arcelia the financial Counselor in regards to following up patient's medical status and she informed SS that She spoke to Marisabel patient's and she stated she had emailed verification to [employer] on 05/20. Arcelia informed SS that she would again follow up with [employer] and patient's Marisabel. SS will stand by for further needs.
[2025-05-22] MEDS: EPOETIN ALFA-EPBX INJ 10,000 UNIT/ML VIAL (NON-ESRD) 10000 UNIT IV (09:55)
[2025-05-22] MEDS: HEPARIN SOD INJ 1000 UNIT/ML VIAL 10 ML 3300 UNIT INDWELLCAT (10:40)
[2025-05-22] MEDS: Magnesium Sulfate 4 GM Ivpb 4 GM/50 ML BAG IV (11:38)
[2025-05-22] MEDS: VANCOMYCIN/WATER 1GM IVPB 200 ML IV (12:02)
--- NOTE | 2025-05-22 13:38 | PC.NURSE ---
Received call from JOSE Cowan in chemical laboratory [employer] to inform me Dr. Mayorga said he will not do pt's lymph node pelvis biopsy.
--- NOTE | 2025-05-22 13:42 | PC.NURSE ---
Notified Dr. Davis that Dr. Mayorga stated he will not do patient's lymph node biopsy in pelvis. No new orders received.
--- NOTE | 2025-05-22 14:51 | ESOP_ITS ---
Date of Procedure 05/22/25 Pre Op Diagnosis Gross hematuria, bilateral hydroureteronephrosis status post placement of bilateral percutaneous nephrostomies, urinary retention very large bladder tumor on CAT scan of the abdomen and pelvis Post Op Diagnosis Same plus elongated and tortuous prostatic urethra with the trauma from placement of the catheter and very large prostate gland and bladder shows very large bladder tumor occupying both ureteral orifices very trabeculated with multiple shallow diverticuli and catheter reaction at the bleeding from the tumor Procedure Cystoscopic examination evacuation of the bladder clots, transurethral resection and fulguration of evaporation of bladder tumor insertion of Araiza catheter Findings Enlarged prostate gland with elongated prostatic urethra bladder showed multiple shallow diverticuli catheter reaction papillary tumor occupying the whole bladder including the ureteral orifice and bleeding from the tumor Procedure Description Indication for procedure this is a 64-year-old gentleman with multiple medical problems was admitted in the hospital with bilateral hydronephrosis after place ment of bilateral percutaneous nephrostomies and on CAT scan was found to have a very large bladder tumor he had placement of Araiza catheter which was in the prostatic urethra and it was repositioned into the bladder he had gross hematuria he was recommended cystoscopic examination and possible fulguration of the bladder tumor and transurethral resection of the bladder tumor procedure and complications were discussed with the his in great detail and with the patient and informed consent is obtained Patient was brought to the operating room in a satisfactory condition after appropriate premedication he was appropriately identified by surgeon and operating room staff informed consent was obtained patient received perioperative antibiotics. He was position on the operating table in a supine position general anesthesia was given uneventfully patient was positioned in a dorsal lithotomy position parts were prepped and draped in the usual sterile fashion he had a catheter which was removed. 2% lidocaine was instilled into the urethra 21 cystoscope was introduced into the bladder per urethra examination of anterior urethra was without any stricture prostatic urethra revealed tortuous elongated prostatic urethra there was a tear from the previous catheter which was inflated in the prostatic urethra next examination of the bladder was carried out in all the 4 quadrants there is a very large papillary bladder tumor occupying right lateral posterior bladder wall including the orifices and left lateral wall there was a lot of catheter reaction. Bladder was very thickly trabeculated with multiple shallow diverticuli. Next a cystoscope was withdrawn I introduced 25 Georgian resectoscope. I resected the tumor to get a tissue diagnosis with the resectoscope and stop the bleeding area with fulguration and evaporation was done next with Lisa evacuator bladder tumor fragments were removed. No active bleeding was seen instrument was withdrawn gently #20 Araiza catheter three-way with 30 cc bag was introduced into the bladder per urethra balloon was inflated with 15 cc of water patient after having tolerated the procedure well was sent to recovery room in a satisfactory condition. Anesthesia GETA Pathology / specimen Other (Bladder tumor) Estimated Blood Loss 10 Condition Stable Surgeon Everton Kent MD Surgical Staff Operation Date: 05/22/25 13:00 Case Staff DISTRIBUTION COORDINATOR: Natanael Galaviz
--- NOTE | 2025-05-22 14:53 | SUR.PHASEI ---
pt received from OR in recovery bay 5. pt asleep but responds to voice, breathing unlabored on oxymask 6l. v/s stable. pt has viveros catheter and bilateral nephrostomy tubes in place. report received from Spencer GARCIA and Donnell DIAS.
--- NOTE | 2025-05-22 15:41 | SUR.PHASEI ---
pt awake and alert, breathing unlabored on room air. v/s stable. pt has viveros catheter and bilateral nephrostomy tubes in place. report called to Liz GARCIA. pt will be transferred to room at this time.
[2025-05-22 16:20] LABS: Hematocrit 30.1 % (41.0-53.0); Hemoglobin 10.0 g/dL (13.5-16.0)
--- NOTE | 2025-05-22 18:12 | ESPR_ITS ---
<Statement entered by Abhay Rojas MD - 05/23/25 07:23> Patient was seen and examined at the bedside. Cystoscopy showed large prostate with elongated prostatic urethra and bladder with diverticuli catheter with papillary tumor occupying the whole bladder in ureteral orifice and bleeding from tumor. Patient could not be taken for pelvic lymph node biopsy due to size and location urinary vessels. Patient had hemodialysis today. Will continue with nephrology and urology recommendations. I discussed and supervised with the data analysis intern physician who took care of this patient. I personally saw and examined the patient. I agree with most of the assessment and plan. Disclaimer: Despite multiple revisions, due to the dictation software being used, the document bellow may not be free of grammatical errors including phonetic/typographic errors. However, this does not deter from our commitment to providing health care in the patient's best interest in mind. Plan of care discussed with attending Physician Dr. Ryan Rojas MD PGY-3 Documentation for date of: 05/22/25 Subjective Subjective Interval history: No overnight events. Evaluated at bedside. Cystoscopy today shows enlarged prostate gland with elongated prostatic urethra bladder showed multiple shallow diverticuli catheter reaction papillary tumor occupying the whole bladder including the ureteral orifice and bleeding from the tumor. After discussion with IR team, it was concluded to not proceed with pelvic lymph node biopsy due to their size and location near major vessels. HD today. Exam Vital Signs Temp Pulse Resp BP Pulse Ox O2 Del Method O2 Flow Rate 97.5 F 98 18 117/74 93 L Room Air 2 05/22/25 16:00 05/22/25 16:00 05/22/25 16:00 05/22/25 16:00 05/22/25 16:00 05/22/25 16:00 05/22/25 15:25 Narrative Exam General: malnourished, frail in no distress. Oriented x 3. Febrile. Skin: No rash, unusual bruising or prominent lesions Head: Normocephalic, atraumatic, no visible or palpable masses, depressions, or scaring. Eyes: conjunctiva clear, sclera non-icteric, no exudates or hemorrhages. Near sighted. Heart: Regular rate and rhythm Lungs: Clear to auscultation. No rales, wheeze, or rhonchi Abdomen: No tenderness, guarding or rigidity. Palpable bladder mass. Back: Right nephrostomy tube in place. Left nephrostomy tube in place. Extremities: No amputations or deformities, cyanosis, edema or varicosities, peripheral pulses intact. Perm Hemodialysis catheter in place at right subclavian jugular vein. Neurologic: Alert and oriented x 3, chorea like movements decreased. Objective Labs 05/23/25 04:28 05/23/25 04:28 Labs: Laboratory Results - last 24 hr 05/20/25 05/22/25 05/22/25 08:55 04:45 16:05 WBC 11.9 H RBC 2.86 L Hgb 8.4 L 10.0 L Hct 25.7 L 30.1 L MCV 90 MCH 29.4 MCHC 32.7 RDW Std Deviation 44.2 H Plt Count 233 Neut % (Auto) 86 H Lymph % (Auto) 5 L Morrill % (Auto) 7 Eos % (Auto) 1 Baso % (Auto) 0 Neut # (Auto) 10.2 H Lymph # (Auto) 0.6 L Morrill # (Auto) 0.9 H Eos # (Auto) 0.1 Baso # (Auto) 0.0 Immature Gran # (Auto) 0.05 H Absolute Nucleated RBC 0.00 Immature Gran % 0 Nucleated RBC % 0 PT 11.4 INR 1.0 APTT 34.7 Sodium 138 Potassium 3.8 Chloride 99 Carbon Dioxide 26.0 Anion Gap 13 BUN 56 H Creatinine 4.0 H Estim Creat Clear Calc 17.4 L eGFR 16 L BUN/Creatinine Ratio 14 Glucose 110 H Calculated Osmolality 292 Calcium 8.4 Corrected Calcium 9.0 Phosphorus 3.9 Magnesium 1.7 Total Bilirubin 0.3 AST 25 ALT 25 Alkaline Phosphatase 93 Total Protein 5.9 Albumin 3.2 L Globulin 2.7 Albumin/Globulin Ratio 1.2 Random Vancomycin 8.3 Blood Type O Positive Antibody Screen NEGATIVE Crossmatch See Detail Blood Bank Wristband ID Yes Quality Measures Quality Measures VTE prophylaxis (SCDs) Assessment & Plan Assessment Current Active Medications: Generic Name Dose Route Start Last Admin Trade Name Freq PRN Reason Stop Dose Admin Acetaminophen 650 mg 05/16/25 10:21 05/20/25 17:26 Acetaminophen 325 Mg Tablet PO 06/15/25 10:20 650 mg Q6H PRN Administration Fever >100.4 or pain Protocol Heparin Sodium (Porcine) 3,300 unit 05/22/25 09:52 05/22/25 10:40 Heparin Sod Inj 1000 Unit/Ml Vial 10 Ml INDWELLCAT 06/05/25 09:51 3,300 unit X1 PRN Administration DIALYSIS Hydromorphone HCl 1 mg 05/18/25 10:45 05/20/25 07:50 Hydromorphone Inj 2 Mg/Ml Vial IVP 05/23/25 10:44 1 mg Q4HR PRN Administration PAIN Protocol Ceftriaxone Sodium/Dextrose 1 gm in 50 mls @ 100 mls/hr 05/20/25 10:33 05/22/25 10:57 Rocephin/D5w 1gm Iv Premix IV 05/27/25 10:32 Infused QDAY SHADY Infusion Ondansetron HCl 4 mg 05/16/25 10:21 Ondansetron Inj 2 Mg/Ml Inj 2 Ml IVP 06/15/25 10:20 Q6H PRN NAUSEA OR VOMITING Protocol Pantoprazole Sodium 40 mg 05/17/25 09:00 05/22/25 08:40 Pantoprazole Inj 40 Mg Vial IVP 06/16/25 08:59 Not Given QDAY SHADY Pharmacy Consult 1 each 05/21/25 10:00 Vancomycin Pharmacy To Dose 1 Each Each IV 06/20/25 09:59 QDAY PRN CONSULT Plan Mr. Meade is a 64M with unknown past medical history presents for ground level fall. Pt is a poor historian, history obtained from at bedside. Pt denies midline tenderness, neck or head injury. Pt has a chorea-like repetitive movement at baseline, which the states started a few weeks ago. US Bladder shows a bladder mass with bilateral hydronephrosis. Admitted for CORINA with creatinine of 6.2. Perm cath inserted at right subclavian vein. Cystoscopy shows bleeding from tumor. Decide to not proceed with pelvic lymph node biopsy per IR team recommendation. #New onset ESRD #Acute Renal Failure #Obstructive Uropathy #B/L hydronephrosis #Bladder mass Bilateral hydronephrosis with bladder mass on US, confirmed with CT abdomen. Solid nodule noted on bladder wall measuring 2.8 x 1.9 x 1.4cm - bilateral nephrostomy tubes inserted, left one dislodged post procedure, right one intact but not draining. - Bilateral nephrostomy tube in place and draining - viveros catheter in place, if not draining okay to manually irrigate per urology. - Nephrology consulted: perm cath at right subclavian, HD today, added 1pRBC. Irrigate viveros if has clot retention, at this time not a good candidate for surgical intervention, repeat kidney US in 1 week, - IR recommends to not proceed with pelvic lymph node biopsy due to location and size of lymph node - NM renal scan shows no renal function. - Cystoscopy shows enlarged prostate gland with elongated prostatic urethra bladder showed multiple shallow diverticuli catheter reaction papillary tumor occupying the whole bladder including the ureteral orifice and bleeding from the tumor - strict I/O - renal dose medication - Daily CMP, trend electrolyte. #Community acquired Pneumonia #Suspected GPC bacteremia vs contamination CT chest shows significant bibasilar pneumonia, WBC downtrending - elevated ESR, prolactin, CRP, likely due to poor renal function and tumor mass - one of the blood cultures grow gram positive cocci @ 24H. - Continue Rocephin 1g QD and DC doxycycline 100mg BID - Started vancomycin, pharmacy to dose. - Repeated Blood cultures pending #chorea-like movement - Related to ?azotemia - Concern for brain metastases - MRI Brain shows prominent atrophy, otherwise no acute infarct, mass, or midline shift. - Oncology consulted: Tumor markers: CA 19-9 pending. CEA elevated, PSA negative. #Anemia of chronic disease Hgb 8.8 -> 9.3 -> 8.3 ->7.9 -> 9.9 post transfusion 1 unit. 8.6 today, concerns for bleeding at tumor site. - A unit of blood was transfused during dialysis on 05/22, post transfusion h/h 08/29 - Retacrit 10,000unit x1 - daily CBC, if falls below 7, consider blood transfusion - EPO given , iron panel. #Hyperparathyroidism PTH 370.5. Ca 8.6 likely secondary to renal failure - follow up out patient Dispo: MedSurg DVT prophylaxis: SCDs GI prophylaxis: Protonix 40 IV Diet: Renal Diet Lines: Peripheral IV, viveros catheter, bilateral nephrostomy tube in place, R IJ hemodialysis catheter Code status: Full code Case discussed with my senior resident Dr. Rojas Case discussed with my attending Dr. Ryan Kirk DO PGY-1 Attending Provider Attestation/Addendum Margie Sutherland DO, attest that I was physically present for the wallace portions of the service and evaluated the patient with the resident and I reviewed and discussed the case with the resident and agree with the resident's findings and plans of care as documented above Patient seen and eval this a.m. No acute events overnight. Lymphadenopathy not significant for lymph node biopsy to be safely performed. However, cystoscopy was done and case was discussed with urology during which bladder with found to be riddled with tumor that had been partially resected. Bladder was fulgurated as well. Prostatic urethra was also tortuous. Cystoscopy was difficult as urethra was also noted to have some tearing due to Viveros trauma. Several clots were evacuated as well. New Viveros catheter was placed by urology and recommends manual irrigation if viveros is clotted. Will f/u with pathology of bladder tumor. Family updated at bedside following cystoscopy. Patient remains on Abx due to possible GPC bacteremia. F/u repeat bcx
--- NOTE | 2025-05-22 19:05 | PC.NURSE ---
Report received, pt seen resting no current complaints multiple procedures today resting no s/s of distress, call light within reach.
[2025-05-22 19:53] LABS: PSA, Free 0.53 ng/mL; PSA, Total 1.9 ng/mL (< OR = 4.0)
--- NOTE | 2025-05-22 21:47 | PC.NURSE ---
Contacted Dr. Robbins pt requesting medication to help him sleep, to input orders.
[2025-05-22] MEDS: MELATONIN 3 MG TABLET PO (22:34)
[2025-05-23] VITALS (11 sets, daily range): BP systolic 98–125; BP diastolic 64–71; PULSE 78–91; RESP 10–24; TEMP 36.2–37.2; O2SAT 92–97; BMI 17.4; BMI 17.5; BMI 13.0
[2025-05-23 05:37] LABS: Basophils # (Auto) 0.1 Thou/mm3 (0.0-0.2); Basophils % (Auto) 1 % (0-2.5); Eosinophils # (Auto) 0.1 Thou/mm3 (0.0-0.5); Eosinophils % (Auto) 1 % (0-10); Hematocrit 29.5 % (41.0-53.0); Hemoglobin 9.7 g/dL (13.5-16.0); Immature Granulocytes Auto 0.06 Thou/mm3 (0.00-0.00); Lymphocytes # (Auto) 0.8 Thou/mm3 (1.0-4.8); Lymphocytes % (Auto) 8 % (10-50); Mean Corpuscular HGB Conc 32.9 g/dl (31.0-37.0); Mean Corpuscular Hemoglobin 30.2 pg (25.0-35.0); Mean Corpuscular Volume 92 fL (80-100); Monocytes # (Auto) 0.8 Thou/mm3 (0.0-0.8); Monocytes % (Auto) 8 % (0-12); Neutrophils # (Auto) 8.1 Thou/mm3 (1.8-7.7); Neutrophils % (Auto) 82 % (37-80); Nucleated Red Blood Cell # 0.00 Thou/mm3 (0.00-0.00); Nucleated Red Blood Cell % 0 /100 WBC (0); Platelet Count 222 Thou/mm3 (140-440); RDW Standard Deviation 47.0 fL (35.1-43.9); Red Blood Count 3.21 Miln/mm3 (4.50-5.90); White Blood Count 9.8 Thou/mm3 (3.8-10.6)
[2025-05-23 06:02] LABS: Alanine Aminotransferase 38 U/L (10-49); Albumin, Serum 3.2 gm/dL (3.4-4.8); Albumin/Globulin Ratio 1.2 (1.2-2.2); Alkaline Phosphatase 92 U/L (46-116); Anion Gap 11 (7-16); Aspartate Amino Transferase 31 U/L (0-34); BUN/Creatinine Ratio 12 Ratio (12-20); Bilirubin,Total 0.3 mg/dL (0.3-1.2); Blood Urea Nitrogen 38 mg/dL (9-23); Calcium 8.4 mg/dL (8.3-10.6); Calcium (Corrected) 9.0 mg/dL (8.5-10.1); Carbon Dioxide 27.2 mMol/L (20.0-31.0); Chloride 101 mMol/L (98-107); Creatinine (Component) 3.1 mg/dL (0.6-1.3); Estimated Creatinine Clearance 22.4 mL/min (>60); Globulin 2.7 gm/dL (2.3-3.5); Glucose 108 mg/dL (74-106); Magnesium 1.6 mg/dL (1.6-2.6); Osmolality,Calculated 287 (275-295); Phosphorous 3.7 mg/dL (2.4-5.1); Potassium 3.9 mMol/L (3.4-5.1); Sodium 139 mMol/L (136-145); Total Protein 5.9 gm/dL (5.7-8.2); Vancomycin,Random 5.6 mcg/mL; eGFR 22 See Note
[2025-05-23 06:28] LABS: CA 19-9 Antigen* 50 U/mL (<34)
[2025-05-23] MEDS: cefTRIAXone/D5w 1gm IV premix 1 GM/50 ML BAG IV (08:37)
[2025-05-23] MEDS: Magnesium Sulfate 4 GM Ivpb 4 GM/50 ML BAG IV (08:53)
--- NOTE | 2025-05-23 09:14 | ESPR_ITS ---
<Statement entered by Abhay Rojas MD - 05/23/25 17:06> Patient was seen and examined at the bedside. Patient reported that he has been doing well. Right nephrostomy tube had little amount of urine. Left nephrostomy tube also had some amount of urine. Viveros catheter was draining urine. Blood cultures 2/2 grew GPC. Following repeat blood cultures and ordered an echocardiogram to rule out vegetations. CEA was 6.4 and CA 19-9 was also elevated. Will continue with Rocephin and vancomycin. All labs and orders were reviewed. I discussed and supervised with the internet consultant physician who took care of this patient. I personally saw and examined the patient. I agree with most of the assessment and plan. Disclaimer: Despite multiple revisions, due to the dictation software being used, the document bellow may not be free of grammatical errors including phonetic/typographic errors. However, this does not deter from our commitment to providing health care in the patient's best interest in mind. Plan of care discussed with attending Physician Dr. pardeep Rojas MD PGY-3 Documentation for date of: 05/23/25 Subjective Subjective Interval history: No overnight events. Evaluated at bedside. Hgb stable at 9.7 today. Viveros cath drained 1.7L overnight, left nephrostomy tube drained 950mL, right nephrostomy tube no drainage. CA199 positive. 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 Plan for HD tmr, neuro consulted for word finding difficulty per nephrology. Bcx 2/2 grows GPC, pending echo study. Exam Vital Signs Temp Pulse Resp BP Pulse Ox O2 Del Method O2 Flow Rate 98.9 F 78 17 110/66 96 Room Air 2 05/23/25 04:00 05/23/25 04:00 05/23/25 04:00 05/23/25 04:00 05/23/25 04:00 05/23/25 04:00 05/22/25 15:25 Narrative Exam General: malnourished, frail in no distress. Oriented x 3. Febrile. Skin: No rash, unusual bruising or prominent lesions Head: Normocephalic, atraumatic, no visible or palpable masses, depressions, or scaring. Eyes: conjunctiva clear, sclera non-icteric, no exudates or hemorrhages. Near sighted. Heart: Regular rate and rhythm Lungs: Clear to auscultation. No rales, wheeze, or rhonchi Abdomen: No tenderness, guarding or rigidity. Back: Right nephrostomy tube in place. Left nephrostomy tube in place. Extremities: No amputations or deformities, cyanosis, edema or varicosities, peripheral pulses intact. Perm Hemodialysis catheter in place at right subclavian jugular vein. Neurologic: Alert and oriented x 3, chorea like movements decreased. Objective Labs 05/23/25 04:28 05/23/25 04:28 Labs: Laboratory Results - last 24 hr 05/18/25 05/18/25 05/20/25 05:25 17:17 08:55 WBC RBC Hgb Hct MCV MCH MCHC RDW Std Deviation Plt Count Neut % (Auto) Lymph % (Auto) Geary % (Auto) Eos % (Auto) Baso % (Auto) Neut # (Auto) Lymph # (Auto) Geary # (Auto) Eos # (Auto) Baso # (Auto) Immature Gran # (Auto) Absolute Nucleated RBC Immature Gran % Nucleated RBC % Sodium Potassium Chloride Carbon Dioxide Anion Gap BUN Creatinine Estim Creat Clear Calc eGFR BUN/Creatinine Ratio Glucose Calculated Osmolality Calcium Corrected Calcium Phosphorus Magnesium Total Bilirubin AST ALT Alkaline Phosphatase Total Protein Albumin Globulin Albumin/Globulin Ratio CA 19-9 Antigen 50 H Free PSA 0.53 % Free PSA Calc N/A Total PSA 1.9 Random Vancomycin Blood Type O Positive Antibody Screen NEGATIVE Crossmatch See Detail Blood Bank Wristband ID Yes 05/22/25 05/23/25 16:05 04:28 WBC 9.8 RBC 3.21 L Hgb 10.0 L 9.7 L Hct 30.1 L 29.5 L MCV 92 MCH 30.2 MCHC 32.9 RDW Std Deviation 47.0 H Plt Count 222 Neut % (Auto) 82 H Lymph % (Auto) 8 L Geary % (Auto) 8 Eos % (Auto) 1 Baso % (Auto) 1 Neut # (Auto) 8.1 H Lymph # (Auto) 0.8 L Geary # (Auto) 0.8 Eos # (Auto) 0.1 Baso # (Auto) 0.1 Immature Gran # (Auto) 0.06 H Absolute Nucleated RBC 0.00 Immature Gran % 1 H Nucleated RBC % 0 Sodium 139 Potassium 3.9 Chloride 101 Carbon Dioxide 27.2 Anion Gap 11 BUN 38 H Creatinine 3.1 H D Estim Creat Clear Calc 22.4 L eGFR 22 L BUN/Creatinine Ratio 12 Glucose 108 H Calculated Osmolality 287 Calcium 8.4 Corrected Calcium 9.0 Phosphorus 3.7 Magnesium 1.6 Total Bilirubin 0.3 AST 31 ALT 38 Alkaline Phosphatase 92 Total Protein 5.9 Albumin 3.2 L Globulin 2.7 Albumin/Globulin Ratio 1.2 CA 19-9 Antigen Free PSA % Free PSA Calc Total PSA Random Vancomycin 5.6 Blood Type Antibody Screen Crossmatch Blood Bank Wristband ID Quality Measures Quality Measures VTE prophylaxis (SCDs) Assessment & Plan Assessment Current Active Medications: Generic Name Dose Route Start Last Admin Trade Name Freq PRN Reason Stop Dose Admin Acetaminophen 650 mg 05/16/25 10:21 05/20/25 17:26 Acetaminophen 325 Mg Tablet PO 06/15/25 10:20 650 mg Q6H PRN Administration Fever >100.4 or pain Protocol Heparin Sodium (Porcine) 3,300 unit 05/22/25 09:52 05/22/25 10:40 Heparin Sod Inj 1000 Unit/Ml Vial 10 Ml INDWELLCAT 06/05/25 09:51 3,300 unit X1 PRN Administration DIALYSIS Hydromorphone HCl 1 mg 05/18/25 10:45 05/20/25 07:50 Hydromorphone Inj 2 Mg/Ml Vial IVP 05/23/25 10:44 1 mg Q4HR PRN Administration PAIN Protocol Ceftriaxone Sodium/Dextrose 1 gm in 50 mls @ 100 mls/hr 05/20/25 10:33 05/23/25 08:37 Rocephin/D5w 1gm Iv Premix IV 05/27/25 10:32 100 mls/hr QDAY SHADY Administration Vancomycin HCl/Dextrose 250 mls @ 120 mls/hr 05/23/25 10:00 Vancomycin/D5w 1,250 Mg Ivpb IV 05/23/25 12:04 X1 ONE Magnesium Sulfate 4 gm in 50 mls @ 12.5 mls/hr 05/23/25 08:02 05/23/25 08:53 Magnesium Sulfate Ivpb IV 05/23/25 12:01 12.5 mls/hr X1 ONE Administration Melatonin 3 mg 05/22/25 22:27 05/22/25 22:34 Melatonin 3 Mg Tablet PO 06/22/25 20:59 3 mg HS PRN Administration insomnia Ondansetron HCl 4 mg 05/16/25 10:21 Ondansetron Inj 2 Mg/Ml Inj 2 Ml IVP 06/15/25 10:20 Q6H PRN NAUSEA OR VOMITING Protocol Pantoprazole Sodium 40 mg 05/17/25 09:00 05/23/25 08:37 Pantoprazole Inj 40 Mg Vial IVP 06/16/25 08:59 40 mg QDAY SHADY Administration Pharmacy Consult 1 each 05/21/25 10:00 Vancomycin Pharmacy To Dose 1 Each Each IV 06/20/25 09:59 QDAY PRN CONSULT Plan Mr. Meade is a 64M with unknown past medical history presents for ground level fall. Pt is a poor historian, history obtained from at bedside. Pt denies midline tenderness, neck or head injury. Pt has a chorea-like repetitive movement at baseline, which the states started a few weeks ago. US Bladder shows a bladder mass with bilateral hydronephrosis. Admitted for CORINA with creatinine of 6.2. Perm cath inserted at right subclavian vein. Cystoscopy shows bleeding from tumor. Decide to not proceed with pelvic lymph node biopsy per IR team recommendation. Social work to follow for insurance needs. Plan for HD tmr. Neuro consulted for word finding difficulty per nephrology. Bcx 2/2 grows GPC, pending echo. #Newly Diagnosed ESRD #acute renal failure 2/2 obstructive uropathy #B/L hydronephrosis #Bladder mass Bilateral hydronephrosis with bladder mass on US, confirmed with CT abdomen. Solid nodule noted on bladder wall measuring 2.8 x 1.9 x 1.4cm - bilateral nephrostomy tubes inserted, left one dislodged post procedure, right one intact but not draining. - Bilateral nephrostomy tube in place. - viveros catheter in place, if not draining okay to manually irrigate per urology. - Nephrology consulted: perm cath at right subclavian, HD today, added 1pRBC. Irrigate viveros if has clot retention, at this time not a good candidate for surgical intervention, repeat kidney US in 1 week. - IR recommends to not proceed with pelvic lymph node biopsy due to location and size of lymph node - NM renal scan shows no renal function. - Cystoscopy shows enlarged prostate gland with elongated prostatic urethra bladder showed multiple shallow diverticuli catheter reaction papillary tumor occupying the whole bladder including the ureteral orifice and bleeding from the tumor - strict I/O - renal dose medication - Daily CMP, trend electrolyte. #GPC bacteremia vs contamination #GPC vs GNR pneumonia CT chest shows significant bibasilar pneumonia, WBC downtrending - elevated ESR, prolactin, CRP, likely due to poor renal function and tumor mass - 2/2 Bcx on 05/20 grows GPC. Pending echo. - Continue Rocephin 1g QD and DC doxycycline 100mg BID - Continue vancomycin, pharmacy to dose. - Repeated Blood culture on 05/21 shows no growth @ 24H #chorea-like movement - Related to ?azotemia - Concern for brain metastases - MRI Brain shows prominent atrophy, otherwise no acute infarct, mass, or midline shift. - Oncology consulted: Tumor markers: CA 19-9 elevated. CEA elevated, PSA negative. #Anemia of chronic disease Concerns for bleeding at tumor site. - A unit of blood was transfused during dialysis on 05/22, post transfusion h/h 08/29 - Retacrit 10,000unit x1 - daily CBC, if falls below 8, consider blood transfusion - EPO given , iron panel. #Hyperparathyroidism PTH 370.5. Ca 8.6 likely secondary to renal failure - follow up out patient Dispo: MedSurg DVT prophylaxis: SCDs GI prophylaxis: Protonix 40 IV Diet: Renal Diet Lines: Peripheral IV, viveros catheter, bilateral nephrostomy tube in place, R IJ perm catheter Code status: Full code Case discussed with my senior resident Dr. Rojas Case discussed with my attending Dr. Pardeep Kirk DO PGY-1 Attending Provider Attestation/Addendum Margie Sutherland DO, attest that I was physically present for the wallace portions of the service and evaluated the patient with the resident and I reviewed and discussed the case with the resident and agree with the resident's findings and plans of care as documented above Patient seen and eval this a.m. No acute events overnight. Blood cultures are now 2 out of 2 growing gram-positive cocci. Will continue vancomycin at this time. Will obtain echocardiogram to rule out any signs of endocarditis resulting in GPC bacteremia. Right nephrostomy tube has minimal output while left nephrostomy tube has been draining well. Clots noted from Viveros as well. Will continue with antibiotics at this time and follow-up with pathology of tumor that was resected during cystoscopy yesterday. Op note was reviewed. Patient tolerated procedure well.
--- NOTE | 2025-05-23 10:07 | ESPR_ITS ---
Documentation for date of: 05/23/25 Subjective Subjective Interval history: Amarjit Meade is a 62-year-old male with no past medical history presented for mechanical fall at work. States that he fell forward because his lower back has been giving out for the past few months. He has also been having chorea-like, jerky movements for the past few months and is supposed to see neurology but is having insurance issues. Has not seen a physician in many years. Per , patient has been having enuresis for the past few weeks and claims patient is stubborn and does not want to see a physician. Patient's urine is normally green due to vitamin supplements. Patient admits that he does not drink very much water nor does he urinate very much. Denies pain on urination, increase in urinary urgency, frequency or hesitancy, interrupted stream, any history of prostate issues, flank pain, or recent weight loss. Denies fever, chills, shortness of breath or chest pain. Denies family history of any kidney disease or dialysis. 05/21/25: Patient seen and examined at bedside with . Headache much improved, lying still and comfortably in bed. Denies chest pain, SOB or fever. Cr decreased 6->3.9, BUN still elevated 42. Lt nephrostomy tube re-inserted and draining well, Rt nephrostomy tube still needs to be replaced. Hold HD today, plan for HD tomorrow, will likely need perm cath tomorrow. Spoke with Dr. Kent who plans for possible cystoscopy tomorrow without intervention. Pelvic lymph node biopsy not able to be done. 05/22/25: Patient seen and examined in dialysis. No new complaints. Denies chest pain, SOB or fever. Viveros bag bloody. Cr 4.0 and BUN 56. Plan for cystoscopy today with biopsy. 05/23/25: Patient seen and examined at bedside with . Has a very mild headache. Viveros bag still bloody. Cr 3.1, BUN 38. Continues to have some word finding difficulty even though choreiform movements have improved. Requested nephrology consult. Exam Vital Signs Temp Pulse Resp BP Pulse Ox O2 Del Method O2 Flow Rate 98.4 F 82 10 L 110/67 95 Room Air 2 05/23/25 08:00 05/23/25 08:00 05/23/25 08:00 05/23/25 08:00 05/23/25 08:00 05/23/25 08:00 05/23/25 08:00 Narrative Exam General: AOx3, thin, older than stated age, no acute distress, chorea-like movements resolved HEENT: NC/AT, mucous membranes dry, bilateral sclera anicteric, R IJ cath in place Cardiovascular: regular rate and rhythm, S1/S2 present, no murmurs appreciated Pulmonary: bilateral mild coarse breath sounds Abdominal: soft, non-tender, non-distended, no rebound/guarding, bowel sounds present, Lt and Rt nephrostomy tubes in place posteriorly, Viveros in place bag bloody, hard nontender bladder Extremities: no peripheral edema Skin: warm and dry, intact, no rashes Neuro CN II-XII grossly intact, no focal deficits, alert, following commands Objective Labs 05/25/25 05:06 05/25/25 05:06 Labs: Laboratory Results - last 24 hr 05/18/25 05/18/25 05/22/25 05:25 17:17 16:05 WBC RBC Hgb 10.0 L Hct 30.1 L MCV MCH MCHC RDW Std Deviation Plt Count Neut % (Auto) Lymph % (Auto) [place] % (Auto) Eos % (Auto) Baso % (Auto) Neut # (Auto) Lymph # (Auto) [place] # (Auto) Eos # (Auto) Baso # (Auto) Immature Gran # (Auto) Absolute Nucleated RBC Immature Gran % Nucleated RBC % Sodium Potassium Chloride Carbon Dioxide Anion Gap BUN Creatinine Estim Creat Clear Calc eGFR BUN/Creatinine Ratio Glucose Calculated Osmolality Calcium Corrected Calcium Phosphorus Magnesium Total Bilirubin AST ALT Alkaline Phosphatase Total Protein Albumin Globulin Albumin/Globulin Ratio CA 19-9 Antigen 50 H Free PSA 0.53 % Free PSA Calc N/A Total PSA 1.9 Random Vancomycin 05/23/25 04:28 WBC 9.8 RBC 3.21 L Hgb 9.7 L Hct 29.5 L MCV 92 MCH 30.2 MCHC 32.9 RDW Std Deviation 47.0 H Plt Count 222 Neut % (Auto) 82 H Lymph % (Auto) 8 L [place] % (Auto) 8 Eos % (Auto) 1 Baso % (Auto) 1 Neut # (Auto) 8.1 H Lymph # (Auto) 0.8 L [place] # (Auto) 0.8 Eos # (Auto) 0.1 Baso # (Auto) 0.1 Immature Gran # (Auto) 0.06 H Absolute Nucleated RBC 0.00 Immature Gran % 1 H Nucleated RBC % 0 Sodium 139 Potassium 3.9 Chloride 101 Carbon Dioxide 27.2 Anion Gap 11 BUN 38 H Creatinine 3.1 H D Estim Creat Clear Calc 22.4 L eGFR 22 L BUN/Creatinine Ratio 12 Glucose 108 H Calculated Osmolality 287 Calcium 8.4 Corrected Calcium 9.0 Phosphorus 3.7 Magnesium 1.6 Total Bilirubin 0.3 AST 31 ALT 38 Alkaline Phosphatase 92 Total Protein 5.9 Albumin 3.2 L Globulin 2.7 Albumin/Globulin Ratio 1.2 CA 19-9 Antigen Free PSA % Free PSA Calc Total PSA Random Vancomycin 5.6 Quality Measures Quality Measures VTE prophylaxis (SCDs) Assessment & Plan Assessment Current Active Medications: Generic Name Dose Route Start Last Admin Trade Name Freq PRN Reason Stop Dose Admin Acetaminophen 650 mg 05/16/25 10:21 05/20/25 17:26 Acetaminophen 325 Mg Tablet PO 06/15/25 10:20 650 mg Q6H PRN Administration Fever >100.4 or pain Protocol Heparin Sodium (Porcine) 3,300 unit 05/22/25 09:52 05/22/25 10:40 Heparin Sod Inj 1000 Unit/Ml Vial 10 Ml INDWELLCAT 06/05/25 09:51 3,300 unit X1 PRN Administration DIALYSIS Hydromorphone HCl 1 mg 05/18/25 10:45 05/20/25 07:50 Hydromorphone Inj 2 Mg/Ml Vial IVP 05/23/25 10:44 1 mg Q4HR PRN Administration PAIN Protocol Ceftriaxone Sodium/Dextrose 1 gm in 50 mls @ 100 mls/hr 05/20/25 10:33 05/23/25 08:37 Rocephin/D5w 1gm Iv Premix IV 05/27/25 10:32 100 mls/hr QDAY SHADY Administration Vancomycin HCl/Dextrose 250 mls @ 120 mls/hr 05/23/25 10:00 Vancomycin/D5w 1,250 Mg Ivpb IV 05/23/25 12:04 X1 ONE Magnesium Sulfate 4 gm in 50 mls @ 12.5 mls/hr 05/23/25 08:02 05/23/25 08:53 Magnesium Sulfate Ivpb IV 05/23/25 12:01 12.5 mls/hr X1 ONE Administration Melatonin 3 mg 05/22/25 22:27 05/22/25 22:34 Melatonin 3 Mg Tablet PO 06/22/25 20:59 3 mg HS PRN Administration insomnia Ondansetron HCl 4 mg 05/16/25 10:21 Ondansetron Inj 2 Mg/Ml Inj 2 Ml IVP 06/15/25 10:20 Q6H PRN NAUSEA OR VOMITING Protocol Pantoprazole Sodium 40 mg 05/17/25 09:00 05/23/25 08:37 Pantoprazole Inj 40 Mg Vial IVP 06/16/25 08:59 40 mg QDAY SHADY Administration Pharmacy Consult 1 each 05/21/25 10:00 Vancomycin Pharmacy To Dose 1 Each Each IV 06/20/25 09:59 QDAY PRN CONSULT Plan Amarjit Meade is a 62-year-old male with no past medical history presented for mechanical fall at work due to chorea-like movements, found to have Cr 6.2 and BUN 92 with bladder mass and advanced hydronephrosis. #Obstructive uropathy 2/2 bladder mass causing #Bilateral hydronephrosis #CORINA Patient has no history of kidney disease or any recent lab values to compare. ~30 pack year, quit 04/2025. Reports new enuresis for the past few weeks and jerky movements for a few months, latter ddx likely uremic origin with improvement in movement post dialysis. Ddx includes obstrutive uropathy from possible bladder cancer causing CORINA vs CKD, likely ESRD as NM renal scan showed no renal fx with minimal flow to Lt kidney and reduced flow to Rt kidney CT abd pelvis showed advanced b/l hydronephrosis, extensive abdominal and pelvic lymphadenopathy, distended urinary bladder with marked irregular bladder wall thickening, enzo posteriorly most consistent with bladder cancer. MRI brain showed no mets Lymph node biopsies not able to be done. Nephrostomy tubes: b/l placed 05/17, L fell out 05/19, L replaced 05/20, R replaced 05/21 Perm cath inserted 05/21 Received HD 05/18, 05/19, 05/20, 05/22, Cystoscopy 05/22 showed large prostate and very large bladder tumor occupying both ureteral orifices, tumor resected with bleeding stopped with fulguration Plan: - HD today -F/u repeat renal US -Per urology, recs appreciated: irrigate viveros if has clot retention, at this time not a good candidate for surgical intervention, repeat kidney US in 1 week -Neurology consulted #Chorea #Normocytic anemia #Hyperparathyroidism -Management per primary team. Plan of care discussed with attending Dr. Santana. Joanna Matamoros, DO Internal Medicine PGY-1 Attending Provider Attestation/Addendum Patient seen and examined with resident physician Dr. Matamoros. Note reviewed, agree with findings and recommendations. 05/22/2025 patient with bilateral severe hydronephrosis Spoke to his Marisabel. Patient currently seen on dialysis. Tolerating dialysis without any problems. Hemodialysis for 3 hours, 2K, ultrafiltration 0 L, Epogen 6000, no heparin ordered. Plan of care discussed with the dialysis nurse. Please see dialysis flowsheet for further details. Patient had cystoscopy-showed huge bladder tumor. Biopsy was taken. Spoke to Dr. Hernandez-patient needs to go to tertiary care center for huge bladder tumor. workers compensation claims examiner to help him with insurance needs. Outpatient dialysis also should be arranged. Spoke to primary team. 05/24/2025 spoke to Marisabel at bedside. Patient currently seen on dialysis. Tolerating dialysis without any problems. Hemodialysis for 3 hours, 2K, ultrafiltration 2-3 L, Epogen 6000, no heparin ordered. Plan of care discussed with the dialysis nurse. Please see dialysis flowsheet for further details. Outpatient dialysis will be arranged once his insurance is fixed. He needs outpatient tertiary care center for his huge bladder tumor. Renal ultrasound showed a huge right hydronephrosis. Will plan for right nephrostomy tube exchange. Probably it is not working. Spoke to primary team
--- NOTE | 2025-05-23 10:20 | PC.SS ---
SS follow up note; SS attempted to contact financial counselor Arcelia to check status on medi-miguel update. SS left voicemail with call back number.
[2025-05-23] MEDS: VANCOMYCIN/D5W 1,250 MG IVPB 250 ML 120 MG IV (10:34)
--- NOTE | 2025-05-23 10:37 | ECHO_ITS ---
Transthoracic Echo Report Ht (in): 75 Wt (lb): 141 Exam Location: Echo Lab Status: Inpatient Film Sound Coordinator: Letitia Zamarripa Indications: Procedure Performed: BP: 120 / 71 HR: 83 Technical Quality: Very technically difficult study MEASUREMENTS (Male / Female) Normal Values 2D ECHO LVOT Diameter 2.0 cm Aortic Root Diameter 3.5 cm DOPPLER AV Peak Velocity 91.8 cm/s AV Peak Gradient 3.4 mmHg AV Mean Gradient 1.0 mmHg AV Velocity Time Integral 16.2 cm LVOT Peak Velocity 68.7 cm/s LVOT Peak Gradient 1.9 mmHg LVOT Velocity Time Integral 14.1 cm LVOT Cardiac Index 2020.8 cm?/min?m? AV Area Cont Eq vti 2.7 cm? AV Area Cont Eq pk 2.4 cm? MV Area PHT 3.7 cm? Mitral E Point Velocity 55.3 cm/s Mitral A Point Velocity 69.4 cm/s Mitral E to A Ratio 0.8 LV E' Lateral Velocity 10.3 cm/s Mitral E to LV E' Lateral Ratio 5.4 LV E' Septal Velocity 5.9 cm/s Mitral E to LV E' Septal Ratio 9.4 PV Peak Velocity 114.0 cm/s PV Peak Gradient 5.2 mmHg FINDINGS Left Ventricle Normal left ventricular size and wall thickness The ejection fraction is visually estimated at 35-40%. There is grade I diastolic dysfunction of the left ventricle (impaired relaxation pattern). Global left ventricular systolic function is moderately decreased. Right Ventricle The right ventricle is normal in size and systolic function. Left Atrium The left atrium is normal by two-dimensional, color flow and Doppler imaging with no structural abnormalities, no thrombus formation present. Right Atrium The right atrium is normal by two-dimensional imaging, color flow and Doppler imaging with no structural abnormalities, no thrombus formation present. Atrial Septum The interatrial septum appears normal with no evidence of a shunt. Aorta The aorta is normal by two-dimensional, color flow and Doppler interrogation. Mitral Valve The mitral valve is normal by two-dimensional, color flow and Doppler interrogation. There is no significant mitral valve regurgitation, stenosis or prolapse. Aortic Valve The aortic valve is trileaflet and normal by two-dimensional, color flow and Doppler interrogation. There is no significant aortic valve regurgitation. Tricuspid Valve The tricuspid valve is normal by two-dimensional, color flow and Doppler interrogation. There is no significant tricuspid valve regurgitation. Pulmonic Valve The pulmonic valve is not well visualized. There is no significant pulmonic valve regurgitation. Vessels The pulmonary artery appears normal. The inferior vena cava pulmonary and hepatic veins appear normal. Pericardium The pericardium is normal by two-dimensional imaging. There is no significant pericardial effusion. CONCLUSIONS Indication: GPC bactermia, for ruling out vegetations HD Dialysis cath to right neck The transthoracic study is normal by two-dimensional, color flow imaging and Doppler interrogation. Normal left ventricular size and function. Approximate ejection fraction is 50-55%. Trace mitral and trace tricuspid regurgitation NO vegetations seen Estella Stack (Electronically Signed) Final Date: 23 May 2025 23:55
--- NOTE | 2025-05-23 13:26 | PC.SS ---
Addendum entered by Michelle Zafar 05/23/25 15:08: SS follow up note; SS contacted Isabela the financial counselor in regards to medical status, she informed SS she would attempt to reach out to the [employer] worker. SS will stand by for further needs. Original Note: SS follow up note SS contacted patient's , Marisabel in regard to med-miguel status, she informed SS that she has attempted to call the Medical worker multiple times however has been unsuccessful. Marisabel also informed SS that she spoke to Arcelia the financial counselor and she informed her that she will attempt to contact [employer] worker as well. SS attempted to contact financial counselor Arcelia, SS left voicemail with contact number.
[2025-05-23] MEDS: HYDROmorphone INJ 2 MG/ML VIAL 1 MG IVP (14:01)
--- NOTE | 2025-05-23 14:11 | XR_ITS ---
Examination: Retroperitoneal ultrasound, complete Technique: Multiple high resolution grayscale images of the retroperitoneum obtained, including kidneys and bladder. Exam date and time:May 23, 2025 1454 hours INDICATIONS: Acute renal insufficiency, status post bilateral percutaneous surf ostomy is, advanced bilateral hydronephrosis on CT imaging May 16, 2025 FINDINGS: Right kidney 18.8 cm cortex 1.3 cm Advanced right hydronephrosis Left kidney 13.6 cm cortex 1.6 cm Mild hydronephrosis Contracted urinary bladder Prostatomegaly volume 63.2 cc IMPRESSION: Severe right hydronephrosis
--- NOTE | 2025-05-23 17:10 | PD.RESCONSUL ---
HPI Data of Consult Requesting Physician: Margie Davis DO Admitting Provider: Margie Davis DO Attending Provider: Margie Davis DO Primary Care Provider: Physician No Primary/Family Consult Narrative History of present illness: Mr. Gonzalez is a 64M with unknown past medical history presents for ground level fall at work ([employer]). Pt denies lost of consciousness, syncope, or heart palpitation prior to the fall. He denies midline tenderness, neck or head injury. He does report of slight back pain not associated with the fall, onset prior to this incident. He is a poor historian with slur speech, history gathered from at bedside. Per , he has a repetitive chorea-like motor movements that are chronic with unknown etiology. She states this is how pt acts at baseline, no recent change in behavior or speech. 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 Pt has not seen a doctor for 3-4 years and does not see a primary care physician, as his previous PCP retired. The only reported history was a UTI back in 2018. Patient was admitted 05/16 for incidental finding of elevated creatinine of 6.2 with unclear etiology. Imaging showed bladder mas and b/l hydronephrosis, now s/p b/l nephrostomy tubes and HD. Patient found to have ESRD, PNA growing gram positive cocci and hyperparathyroidism. Patient evaluated at bedside. He reports that he fell while at work at [employer] and denies hitting his head. He reports that he has had some abnormal movements throughout his body that has gotten worse over the past few months. He reports that he feels restless throughout his body though most concentrated in his feet which has the most frequent abnormal movement. He denies history of heart failure, arrhythmias, stroke, TIA, diabetes, peripheral neuropathy, family history of movement disorders. He denies psychiatric history or psychiatric medications. cc:: cc: Margie Davis DO Review of Systems Constitutional Comments: 14 point review of systems negative other than HPI Exam Vital Signs Temp Pulse Resp BP Pulse Ox O2 Del Method O2 Flow Rate 98.7 F 82 16 120/71 97 Room Air 2 05/23/25 12:00 05/23/25 16:33 05/23/25 12:00 05/23/25 12:00 05/23/25 12:00 05/23/25 12:00 05/23/25 08:00 Narrative Exam General: No acute distress, well nourished Eye: PERRL, EOMI, normal conjunctiva, no scleral icterus HENT: Normocephalic, atraumatic, hearing intact to conversation at normal volume, moist oral mucosa. Patient does not have upper teeth Neck: Supple, non-tender, no JVD, no lymphadenopathy Lungs: Non-labored respirations, symmetric chest rise Heart: Peripheral pulses intact bilaterally Abdomen: Soft, non-tender, non-distended Musculoskeletal: Normal range of motion and strength Skin: Skin is warm, dry, no rashes or lesions. Psychiatric: Cooperative, appropriate mood and affect Neurologic: Mental status: Orientation: AOx3 Communication: Patient is cooperative and can follow simple instructions Language: Speech somewhat difficult to understand as patient's upper teeth removed previously, normal rate and volume, comprehension intact, repetition intact, naming intact. No word finding difficulties appreciated on exam Cranial nerves: CN II: Visual esquivel intact CN III: Pupils equal, round, and reactive to light CN III, IV, : No gaze deviation, no nystagmus Horizontal pursuit: intact Vertical pursuit: intact Ptosis: none CN V: Facial sensation to light touch intact bilaterally at the forehead, cheeks, and jaw line CN VII: Face symmetric, no facial droop appreciated CN VIII: Able to hear and respond to conversation at normal volume, intact to finger rub CN IX, X: Palate elevation symmetric, uvula midline CN XI: Head turn and shoulder shrug strong, symmetric bilaterally CN XII: Normal tongue protrusion without deviation, no fasciculations Motor: Normal tone Generalized muscle atrophy appreciated Abnormal movements appreciated in in all extremities, most prominent in bilateral feet and mouth (subjectively associated with feeling of restlessness) Muscle strength: Shoulder abduction: R 5/5 L 5/5 Elbow flexion: R 5/5 L 5/5 Elbow extension: R 5/5 L 5/5 Hip flexion: R 5/5 L 5/5 Hip extension: R 5/5 L 5/5 Knee flexion: R 5/5 L 5/5 Knee extension: R 5/5 L 5/5 Sensory: RUE: Light touch intact LUE: Light touch intact RLE: Light touch intact LLE: Light touch intact Reflexes: Biceps (C5-6): R 2+ L 2+ Brachioradialis (C5-6): R 2+ L 2+ Triceps (C7-8): R 2+ L 2+ Patellae (L3-4): R 2+ L 2+ Achilles (S1-2):R 2+ L 2+ Cerebellum: RUE: No dysmetria (finger to nose), no dysdiadochokinesia (rapid alternating movements) LUE: No dysmetria (finger to nose), no dysdiadochokinesia (rapid alternating movements) RLE: No dysmetria (heel to vega) LLE: No dysmetria (heel to vega) Results Labs 05/23/25 04:28 05/23/25 04:28 Labs: Short CBC 05/23/25 Range/Units 04:28 WBC 9.8 (3.8-10.6) Thou/mm3 Hgb 9.7 L (13.5-16.0) g/dL Hct 29.5 L (41.0-53.0) % Plt Count 222 (140-440) Thou/mm3 BMP 05/23/25 04:28 Sodium 139 Potassium 3.9 Chloride 101 Carbon Dioxide 27.2 BUN 38 H Creatinine 3.1 H D Glucose 108 H Calcium 8.4 Liver Function 05/23/25 Range/Units 04:28 Total Bilirubin 0.3 (0.3-1.2) mg/dL AST 31 (0-34) U/L ALT 38 (10-49) U/L Alkaline Phosphatase 92 (46-116) U/L Albumin 3.2 L (3.4-4.8) gm/dL Quality Measures Quality Measures VTE prophylaxis (SCDs) Medications Home Medications and Allergies Home Medications ?Medication ?Instructions ?Recorded ?Confirmed ?Type No Known Home Medications 05/19/25 05/19/25 History Allergies Allergy/AdvReac Type Severity Reaction Status Date / Time No Known Allergies Allergy Verified 06/15/18 21:22 Visit Medications Acetaminophen (Acetaminophen 325 Mg Tablet) 650 mg PO Q6H PRN; Protocol PRN Reason: Fever >100.4 or pain Stop: 06/15/25 10:20 Last Admin: 05/20/25 17:26 Dose: 650 mg Heparin Sodium (Porcine) (Heparin Sod Inj 1000 Unit/Ml Vial 10 Ml) 3,300 unit INDWELLCAT X1 PRN PRN Reason: DIALYSIS Stop: 06/05/25 09:51 Last Admin: 05/22/25 10:40 Dose: 3,300 unit Hydromorphone HCl (Hydromorphone Inj 2 Mg/Ml Vial) 1 mg IVP Q4HR PRN PRN Reason: PAIN SCALE 4-10(Mod-Sev Stop: 05/28/25 13:48 Last Admin: 05/23/25 14:01 Dose: 1 mg Ceftriaxone Sodium/Dextrose (Rocephin/D5w 1gm Iv Premix) 1 gm in 50 mls @ 100 mls/hr IV QDAY [facility] Stop: 05/27/25 10:32 Last Admin: 05/23/25 08:37 Dose: 100 mls/hr Melatonin (Melatonin 3 Mg Tablet) 3 mg PO HS PRN PRN Reason: insomnia Stop: 06/22/25 20:59 Last Admin: 05/22/25 22:34 Dose: 3 mg Ondansetron HCl (Ondansetron Inj 2 Mg/Ml Inj 2 Ml) 4 mg IVP Q6H PRN; Protocol PRN Reason: NAUSEA OR VOMITING Stop: 06/15/25 10:20 Pantoprazole Sodium (Pantoprazole Inj 40 Mg Vial) 40 mg IVP QDAY [facility] Stop: 06/16/25 08:59 Last Admin: 05/23/25 08:37 Dose: 40 mg Pharmacy Consult (Vancomycin Pharmacy To Dose 1 Each Each) 1 each IV QDAY PRN PRN Reason: CONSULT Stop: 06/20/25 09:59 Discontinued Medications Clotrimazole (Clotrimazole Cr 1% 30 Gm Tube) 0 gm TOP BID [facility] Stop: 06/16/25 20:59 Diphenhydramine HCl (Diphenhydramine Inj 50 Mg/Ml Vial) 12.5 mg IVP X1 PRN PRN Reason: Prior to CT imaging Stop: 06/15/25 17:27 Last Admin: 05/16/25 20:25 Dose: 12.5 mg Diphenhydramine HCl (Diphenhydramine Inj 50 Mg/Ml Vial) 12.5 mg IVP X1 PRN PRN Reason: Prior to MRI and CT imaging Last Admin: 05/20/25 18:20 Dose: 12.5 mg Epoetin Kvng (Epoetin Kvng-Epbx Inj 10,000 Unit/Ml Vial (Esrd)) 10,000 unit SC X1 ONE Stop: 05/20/25 10:31 Last Admin: 05/20/25 11:48 Dose: 10,000 unit Epoetin Kvng (Epoetin Kvng-Epbx Inj 10,000 Unit/Ml Vial (Non-Esrd)) 10,000 unit IV X1 ONE Stop: 05/22/25 09:01 Last Admin: 05/22/25 09:55 Dose: 10,000 unit Fentanyl Citrate (Fentanyl Cit Inj 50 Mcg/Ml Amp 2ml) 50 mcg IVP X1 ONE Stop: 05/17/25 11:46 Last Admin: 05/17/25 11:48 Dose: 50 mcg Fentanyl Citrate (Fentanyl Cit Inj 50 Mcg/Ml Amp 2ml) 50 mcg IVP X1 ONE Stop: 05/17/25 10:31 Last Admin: 05/17/25 10:50 Dose: 50 mcg Fentanyl Citrate (Fentanyl Cit Inj 50 Mcg/Ml Amp 2ml) 100 mcg IVP X1 ONE Stop: 05/20/25 14:22 Last Admin: 05/20/25 14:22 Dose: 100 mcg Fentanyl Citrate (Fentanyl Cit Inj 50 Mcg/Ml Amp 2ml) 125 mcg IVP X1 ONE Stop: 05/21/25 13:45 Last Admin: 05/21/25 13:45 Dose: 125 mcg Haloperidol Lactate (Haloperidol Lact Inj 5 Mg/Ml Vial) 5 mg IV Q6HR PRN PRN Reason: AGITATION (SEVERE) Stop: 05/23/25 13:01 Haloperidol Lactate (Haloperidol Lact Inj 5 Mg/Ml Vial) 5 mg IV X1 ONE Stop: 05/18/25 13:01 Last Admin: 05/18/25 13:00 Dose: 5 mg Heparin Sodium (Beef Lung) (Heparin Sod Lock Syr 100 Unit/Ml) 500 unit STFIELD X1 ONE Stop: 05/17/25 11:01 Last Admin: 05/17/25 11:30 Dose: 500 unit Heparin Sodium (Beef Lung) (Heparin Sod Lock Syr 100 Unit/Ml) 500 unit STFIELD X1 ONE Stop: 05/21/25 13:45 Last Admin: 05/21/25 13:46 Dose: 500 unit Heparin Sodium (Porcine) (Heparin Sod Inj 5000 Unit/Ml Vial) 5,000 unit SC Q12HR SHADY Stop: 05/30/25 10:29 Last Admin: 05/16/25 13:28 Dose: Not Given Heparin Sodium (Porcine) (Heparin Sod Inj 1000 Unit/Ml Vial 10 Ml) 3,100 unit INDWELLCAT X1 PRN PRN Reason: DIALYSIS Stop: 06/01/25 18:20 Last Admin: 05/20/25 12:02 Dose: 3,100 unit Heparin Sodium (Porcine) (Heparin Sod Inj 1000 Unit/Ml Vial) 3,300 unit INDWELLCAT X1 ONE Stop: 05/21/25 14:02 Last Admin: 05/21/25 14:18 Dose: 3,300 unit Hydromorphone HCl (Hydromorphone Inj 2 Mg/Ml Vial) 1 mg IVP Q4HR PRN; Protocol PRN Reason: PAIN Stop: 05/23/25 10:44 Last Admin: 05/20/25 07:50 Dose: 1 mg Sodium Chloride (Ns) 1,000 mls @ 999 mls/hr IV .Q1H1M ONE Stop: 05/16/25 11:01 Last Infusion: 05/16/25 14:58 Dose: Infused Lactated Ringer's (Lactated Ringers) 1,000 mls @ 75 mls/hr IV .[id number] [facility] Stop: 06/15/25 10:47 Last Admin: 05/17/25 23:13 Dose: 75 mls/hr Magnesium Sulfate (Magnesium Sulfate Ivpb) 4 gm in 50 mls @ 12.5 mls/hr IV X1 ONE Stop: 05/16/25 21:32 Last Admin: 05/16/25 19:45 Dose: 12.5 mls/hr Dexmedetomidine/Sodium Chloride (Precedex Ivpb) 400 mcg in 100 mls @ 3.221 mls/hr IV .Q24H PRN; Protocol PRN Reason: Per PROTOCOL Stop: 06/17/25 11:49 Last Titration: 05/18/25 13:20 Dose: 0 mcg/kg/hr, 0 mls/hr Magnesium Sulfate (Magnesium Sulfate Ivpb) 4 gm in 50 mls @ 12.5 mls/hr IV X1 ONE Stop: 05/19/25 10:12 Last Admin: 05/19/25 06:24 Dose: 12.5 mls/hr Doxycycline Hyclate 100 mg/ (Sodium Chloride) 100 mls @ 100 mls/hr IV BID [facility] Stop: 05/27/25 12:14 Last Admin: 05/21/25 12:32 Dose: Not Given Magnesium Sulfate (Magnesium Sulfate Ivpb) 4 gm in 50 mls @ 12.5 mls/hr IV X1 ONE Stop: 05/21/25 11:33 Last Admin: 05/21/25 10:26 Dose: 12.5 mls/hr Vancomycin/Sodium Chloride (Vancomycin/Ns 1 Gm Ivpb) 200 mls @ 120 mls/hr IV X1 ONE Stop: 05/21/25 11:54 Last Admin: 05/21/25 12:31 Dose: Not Given Vancomycin HCl (Vancomycin/Water 1gm Ivpb) 200 mls @ 120 mls/hr IV X1 ONE; Protocol Stop: 05/21/25 12:09 Last Infusion: 05/21/25 13:45 Dose: Infused Vancomycin HCl (Vancomycin/Water 1gm Ivpb) 200 mls @ 120 mls/hr IV X1 ONE; Protocol Stop: 05/22/25 11:39 Last Infusion: 05/22/25 13:43 Dose: Infused Magnesium Sulfate (Magnesium Sulfate Ivpb) 4 gm in 50 mls @ 12.5 mls/hr IV X1 ONE Stop: 05/22/25 11:52 Last Infusion: 05/22/25 15:38 Dose: Infused Vancomycin HCl/Dextrose (Vancomycin/D5w 1,250 Mg Ivpb) 250 mls @ 120 mls/hr IV X1 ONE Stop: 05/23/25 12:04 Last Admin: 05/23/25 10:34 Dose: 120 mls/hr Magnesium Sulfate (Magnesium Sulfate Ivpb) 4 gm in 50 mls @ 12.5 mls/hr IV X1 ONE Stop: 05/23/25 12:01 Last Admin: 05/23/25 08:53 Dose: 12.5 mls/hr Levetiracetam (Levetiracetam Inj 100 Mg/Ml Vial 5ml) 500 mg IVP X1 ONE Stop: 05/16/25 06:47 Last Admin: 05/16/25 09:43 Dose: Not Given Lidocaine HCl (Lidocaine Inj Pf 1% 30 Ml Vial) 10 ml INFL X1 ONE Stop: 05/17/25 11:01 Last Admin: 05/17/25 11:49 Dose: 10 ml Lidocaine HCl (Lidocaine Hcl 1% 20 Ml Vial) 10 ml INFL X1 ONE Stop: 05/18/25 13:03 Last Admin: 05/18/25 12:58 Dose: 10 ml Lidocaine HCl (Lidocaine Jelly 2% (Urojet) 10 Ml Tube) 0 ml TOP X1 ONE Stop: 05/20/25 14:13 Last Admin: 05/20/25 23:52 Dose: 10 ml Lidocaine HCl (Lidocaine Inj Pf 1% 30 Ml Vial) 7 ml INFL X1 ONE Stop: 05/20/25 14:22 Last Admin: 05/20/25 14:23 Dose: 7 ml Lidocaine HCl (Lidocaine Inj Pf 1% 30 Ml Vial) 14 ml INFL X1 ONE Stop: 05/21/25 13:45 Last Admin: 05/21/25 13:46 Dose: 14 ml Lorazepam (Lorazepam 0.5 Mg Tablet) 1 mg PO X1 ONE Stop: 05/16/25 06:51 Last Admin: 05/16/25 09:12 Dose: 1 mg Lorazepam (Lorazepam 2 Mg/Ml Vial) 2 mg IVP X1 PRN PRN Reason: Prior to CT imaging Stop: 05/21/25 17:20 Melatonin (Melatonin 3 Mg Tablet) 3 mg PO HS ONE Stop: 05/21/25 19:53 Last Admin: 05/21/25 20:08 Dose: 3 mg Midazolam HCl (Midazolam Inj 1 Mg/Ml Vial 2 Ml) 2 mg IVP X1 PRN PRN Reason: Prior to Central Line Stop: 05/19/25 11:49 Last Admin: 05/18/25 12:27 Dose: 2 mg Midazolam HCl (Midazolam Inj 1 Mg/Ml Vial 2 Ml) 1 mg IVP X1 ONE Stop: 05/18/25 13:03 Last Admin: 05/18/25 12:58 Dose: 1 mg Midazolam HCl (Midazolam Inj 1 Mg/Ml Vial 2 Ml) 1 mg IVP X1 ONE Stop: 05/18/25 13:15 Last Admin: 05/18/25 13:12 Dose: 1 mg Sevelamer Carbonate (Sevelamer Carbonate 800 Mg Tablet) 800 mg PO X1 ONE Stop: 05/16/25 17:34 Last Admin: 05/16/25 19:45 Dose: 800 mg Tuberculin PPD (Tuberculin Ppd Inj 5 Unit/0.1 Ml Dose) 5 unit ID X1 ONE Stop: 05/18/25 10:55 Tuberculin PPD (Tuberculin Ppd Inj 5 Unit/0.1 Ml Dose) 5 unit ID X1 ONE Stop: 05/19/25 16:56 Last Admin: 05/19/25 17:16 Dose: 5 unit Assessment & Plan Plan # Abnormal movements, present on admission # Word-finding difficulty, present on admission # Previous falls Abnormal movements improved after nephrostomy tube placement and hemodialysis. Patient comprehension, repetition, naming intact. No aphasia appreciated on exam. No focal neuro deficit appreciated Pt denies hx of psychiatric medications MRI brain w/o 05/20: no acute hemorrhage. Moderate chronic microvascular white matter changes. Prominent atrophy. No focal metastases. DDX: tardive dyskinesia, akathisia, azotemia, infection, paraneoplastic Plan: - Valbenazine or deutetrabenazine for tardive dyskinesia if available per pharmacy. Can tx symptomatically with Clonazepam or anticholinergics. - Syncope workup per primary #Newly Diagnosed ESRD #CORINA intrarenal vs Post obstructive uropathy #B/L hydronephrosis #Bladder mass #Pneumonia #CAUTI vs Catheter-related bloodstream infection #2/2 BCx GPC #Anemia of chronic disease #Hyperparathyroidism Plan: - Management per primary Plan discussed with Dr. Cande Dyson, PGY1 Attending Provider Attestation/Addendum I personally have seen and examined the patient at the bedside and I agreed with the resident's findings, assessment and plan of care. His abnormal involuntary movements could be tardive dyskinesia and should benefit from Ingrezza or Austedo XR but as it is nonformulary here, will consider trying clonazepam or benztropine with close monitoring for sedation or anticholergic delirium
[2025-05-23] MEDS: MELATONIN 3 MG TABLET PO (20:07)
[2025-05-24] VITALS (23 sets, daily range): BP systolic 106–141; BP diastolic 58–84; PULSE 62–106; RESP 16–20; TEMP 36.2–37; O2SAT 96–98; BMI 13.0
[2025-05-24 06:17] LABS: Basophils # (Auto) 0.1 Thou/mm3 (0.0-0.2); Basophils % (Auto) 1 % (0-2.5); Eosinophils # (Auto) 0.2 Thou/mm3 (0.0-0.5); Eosinophils % (Auto) 2 % (0-10); Hematocrit 30.4 % (41.0-53.0); Hemoglobin 9.8 g/dL (13.5-16.0); Immature Granulocytes Auto 0.08 Thou/mm3 (0.00-0.00); Lymphocytes # (Auto) 0.9 Thou/mm3 (1.0-4.8); Lymphocytes % (Auto) 10 % (10-50); Mean Corpuscular HGB Conc 32.2 g/dl (31.0-37.0); Mean Corpuscular Hemoglobin 29.8 pg (25.0-35.0); Mean Corpuscular Volume 92 fL (80-100); Monocytes # (Auto) 0.9 Thou/mm3 (0.0-0.8); Monocytes % (Auto) 9 % (0-12); Neutrophils # (Auto) 7.6 Thou/mm3 (1.8-7.7); Neutrophils % (Auto) 78 % (37-80); Nucleated Red Blood Cell # 0.00 Thou/mm3 (0.00-0.00); Nucleated Red Blood Cell % 0 /100 WBC (0); Platelet Count 261 Thou/mm3 (140-440); RDW Standard Deviation 46.4 fL (35.1-43.9); Red Blood Count 3.29 Miln/mm3 (4.50-5.90); White Blood Count 9.8 Thou/mm3 (3.8-10.6)
--- NOTE | 2025-05-24 06:51 | ESPR_ITS ---
<Statement entered by Lachelle Josue MD - 05/28/25 08:03> I reviewed above note and agree with findings and plans. I have also personally examined the patient with medicine team and went over assessment and plan with medical team including industrial design intern and resident physician. <Statement entered by Abhay Rojas MD - 05/24/25 14:20> Patient was seen and examined at the bedside. No acute overnight events were reported. Patient is undergoing hemodialysis today per schedule. ID consulted as patient blood cultures grew GPC showing staph epidermis. Repeat blood cultures are coming negative for 48 hours. Neurology is following the case. Patient's insurance will be getting processed by Tuesday per [employer]. DC Rocephin as initial blood cultures are resistant to Rocephin. Continuing vancomycin as cultures are sensitive to vancomycin for 12 more days. Echo showed no vegetations. I discussed and supervised with the industrial design intern physician who took care of this patient. I personally saw and examined the patient. I agree with most of the assessment and plan. Disclaimer: Despite multiple revisions, due to the dictation software being used, the document bellow may not be free of grammatical errors including phonetic/typographic errors. However, this does not deter from our commitment to providing health care in the patient's best interest in mind. Plan of care discussed with attending Physician Dr. Joselo Rojas MD PGY-3 Documentation for date of: 05/24/25 Subjective Subjective Interval history: No acute events overnight HD today started clonazepam for tardive dyskinesive vs chorea movements. Exam Vital Signs Temp Pulse Resp BP Pulse Ox O2 Del Method O2 Flow Rate 97.6 F 83 16 119/73 98 Room Air 2 05/24/25 04:00 05/24/25 04:00 05/24/25 04:00 05/24/25 04:00 05/24/25 04:00 05/24/25 04:00 05/23/25 08:00 Narrative Exam General: No acute distress, well nourished Eye: PERRL, EOMI, normal conjunctiva, no scleral icterus HENT: Normocephalic, atraumatic, hearing intact to conversation at normal volume, moist oral mucosa. Patient does not have upper teeth Lungs: Non-labored respirations, symmetric chest rise Heart: Peripheral pulses intact bilaterally Abdomen: Soft, non-tender, non-distended, nephrostomy tubes. Musculoskeletal: Normal range of motion and strength Skin: Skin is warm, dry, no rashes or lesions. Psychiatric: Cooperative, appropriate mood and affect Neurologic: AOx3, Patient is cooperative and can follow simple instructions Language: Speech somewhat difficult to understand as patient's upper teeth removed previously, normal rate and volume, comprehension intact, repetition intact, naming intact. No word finding difficulties appreciated on exam Objective Labs 05/24/25 05:58 05/24/25 05:58 Labs: Laboratory Results - last 24 hr 05/24/25 05:58 WBC 9.8 RBC 3.29 L Hgb 9.8 L Hct 30.4 L MCV 92 MCH 29.8 MCHC 32.2 RDW Std Deviation 46.4 H Plt Count 261 D Neut % (Auto) 78 Lymph % (Auto) 10 Pope % (Auto) 9 Eos % (Auto) 2 Baso % (Auto) 1 Neut # (Auto) 7.6 Lymph # (Auto) 0.9 L Pope # (Auto) 0.9 H Eos # (Auto) 0.2 Baso # (Auto) 0.1 Immature Gran # (Auto) 0.08 H Absolute Nucleated RBC 0.00 Immature Gran % 1 H Nucleated RBC % 0 Quality Measures Quality Measures VTE prophylaxis (SCDs) Assessment & Plan Assessment Current Active Medications: Generic Name Dose Route Start Last Admin Trade Name Freq PRN Reason Stop Dose Admin Acetaminophen 650 mg 05/16/25 10:21 05/20/25 17:26 Acetaminophen 325 Mg Tablet PO 06/15/25 10:20 650 mg Q6H PRN Administration Fever >100.4 or pain Protocol Heparin Sodium (Porcine) 3,300 unit 05/22/25 09:52 05/22/25 10:40 Heparin Sod Inj 1000 Unit/Ml Vial 10 Ml INDWELLCAT 06/05/25 09:51 3,300 unit X1 PRN Administration DIALYSIS Hydromorphone HCl 1 mg 05/23/25 13:49 05/23/25 14:01 Hydromorphone Inj 2 Mg/Ml Vial IVP 05/28/25 13:48 1 mg Q4HR PRN Administration PAIN SCALE 4-10(Mod-Sev Ceftriaxone Sodium/Dextrose 1 gm in 50 mls @ 100 mls/hr 05/20/25 10:33 05/23/25 08:37 Rocephin/D5w 1gm Iv Premix IV 05/27/25 10:32 100 mls/hr QDAY SHADY Administration Melatonin 3 mg 05/22/25 22:27 05/23/25 20:07 Melatonin 3 Mg Tablet PO 06/22/25 20:59 3 mg HS PRN Administration insomnia Ondansetron HCl 4 mg 05/16/25 10:21 Ondansetron Inj 2 Mg/Ml Inj 2 Ml IVP 06/15/25 10:20 Q6H PRN NAUSEA OR VOMITING Protocol Pantoprazole Sodium 40 mg 05/17/25 09:00 05/23/25 08:37 Pantoprazole Inj 40 Mg Vial IVP 06/16/25 08:59 40 mg QDAY SHADY Administration Pharmacy Consult 1 each 05/21/25 10:00 Vancomycin Pharmacy To Dose 1 Each Each IV 06/20/25 09:59 QDAY PRN CONSULT Plan Mr. Meade is a 64M with unknown past medical history presents for ground level fall. Pt is a poor historian, history obtained from at bedside. Pt denies midline tenderness, neck or head injury. Pt has a chorea-like repetitive movement at baseline, which the states started a few weeks ago. US Bladder shows a bladder mass with bilateral hydronephrosis. Admitted for CORINA with creatinine of 6.2. Perm cath inserted at right subclavian vein. Cystoscopy shows bleeding from tumor. Decide to not proceed with pelvic lymph node biopsy per IR team recommendation. Social work to follow for insurance needs. Neuro recs for tardive dyskinesia, start on clonazepam 0.5 BID, HD today,Bcx with staph epi, d/c ctx and doxy, cont vanc. #Newly Diagnosed ESRD #acute renal failure 2/2 obstructive uropathy #B/L hydronephrosis #Bladder mass, likley malignancy Dx - CTAP with BL hydronephrosis and bladder mass Solid nodule noted on bladder wall measuring 2.8 x 1.9 x 1.4cm - US, bladder mass, and R severe hydronephrosis - Nephrology consulted: perm cath at right subclavian, Irrigate viveros if has clot retention, at this time not a good candidate for surgical intervention, repeat kidney US in 1 week. - IR recommends to not proceed with pelvic lymph node biopsy due to location and size of lymph node - NM renal scan shows no renal function. 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 - ID consulted appreciate recs: cont IV abx. 06/05 Tx - HD today - strict I/O - renal dose medication - Bilateral nephrostomy tube in place. keep due to urology needs - viveros catheter in place, if not draining okay to manually irrigate per urology. #GPC bacteremia vs contamination - Staph epi #GPC vs GNR pneumonia Dx - CT chest shows significant bibasilar pneumonia, WBC now wnl - elevated ESR, prolactin, CRP, likely due to poor renal function and tumor mass - 2/2 Bcx on 05/20 grows GPC.- staph epi - ECHO no vegitations, EF 50-55% Tx - d/c Rocephin 1g QD and doxycycline 100mg BID - Continue vancomycin, pharmacy to dose. (05/22-06/05) 2 wks #chorea-like movement vs tardive diskinesea #query 2/2 azotemia movements persist despite HD and start on clonazepam bid Dx - MRI Brain shows prominent atrophy, otherwise no acute infarct, mass, or midline shift. - Oncology consulted: Tumor markers: CA 19-9 elevated. CEA elevated, PSA negative. - Neuro consulted: clonazepam, ok for anticholinergic meds, valbenazine or deutrabenozine (not available on formulary) Tx - clonazepam 0.5 BID #Anemia of chronic disease Concerns for bleeding at tumor site bladder, - A unit of blood was transfused during dialysis on 05/22, post transfusion h/h 08/29 - Retacrit 10,000unit x1 - daily CBC, if falls below 8, consider blood transfusion - EPO given , iron panel. #Hyperparathyroidism PTH 370.5. Ca 8.6 likely secondary to renal failure - follow up out patient Dispo: cont iv abx for bacteremia, HD today, tardive dyskinesia vs chorea movements persist DVT prophylaxis: SCDs GI prophylaxis: Protonix 40 IV Diet: Renal Diet Lines: Peripheral IV, viveros catheter, bilateral nephrostomy tube in place, R IJ perm catheter Code status: Full code Case discussed with my senior resident Dr. Rojas Case discussed with my attending Dr. Joselo Varela MD PGY-1
[2025-05-24 06:56] LABS: Alanine Aminotransferase 30 U/L (10-49); Albumin, Serum 3.4 gm/dL (3.4-4.8); Albumin/Globulin Ratio 1.3 (1.2-2.2); Alkaline Phosphatase 96 U/L (46-116); Anion Gap 12 (7-16); Aspartate Amino Transferase 16 U/L (0-34); BUN/Creatinine Ratio 15 Ratio (12-20); Bilirubin,Total 0.3 mg/dL (0.3-1.2); Blood Urea Nitrogen 55 mg/dL (9-23); Calcium 8.4 mg/dL (8.3-10.6); Calcium (Corrected) 8.9 mg/dL (8.5-10.1); Carbon Dioxide 26.8 mMol/L (20.0-31.0); Chloride 99 mMol/L (98-107); Creatinine (Component) 3.6 mg/dL (0.6-1.3); Estimated Creatinine Clearance 19.3 mL/min (>60); Globulin 2.7 gm/dL (2.3-3.5); Glucose 110 mg/dL (74-106); Magnesium 1.9 mg/dL (1.6-2.6); Osmolality,Calculated 291 (275-295); Phosphorous 3.0 mg/dL (2.4-5.1); Potassium 4.0 mMol/L (3.4-5.1); Sodium 138 mMol/L (136-145); Total Protein 6.1 gm/dL (5.7-8.2); eGFR 18 See Note
--- NOTE | 2025-05-24 07:30 | PC.NURSE ---
Pt. to [facility] with Reymundo Zuñiga.
[2025-05-24 08:12] LABS: Vancomycin,Random 17.8 mcg/mL
--- NOTE | 2025-05-24 09:37 | PC.SS ---
Addendum entered by Michelle Zafar 05/24/25 12:57: SS was contacted by Isabela the financial counselor informing SS that patient's medical was established, however will show on Tuesday. Isabela also informed SS that patient choose [facility] for manage plan. SS will have to wait until Tuesday until Medical is active to send clinicals to [facility]. Addendum entered by Michelle Zafar 05/24/25 09:59: SS follow up note; SS contacted patient's , Marisabel and she informed SS that she is currently at the [facility] office to attempt to get patient established with [facility]. SS also informed Marisabel that Arcelia the financial counselor informed SS that she could also stop by her office and provide information to her and she could forward it to Mindy the [employer] worker. Marisabel informed SS that she rather due everything in person at the medical office. SS requested for Marisabel to contact SS after. SS will stand by for further needs. Original Note: SS follow up note; SS contacted Arcelia the financial counselor and she informed SS that application was taken on 05/17 and was waiting on requested information, however Arcelia informed her that Patient's Marisabel had already submitted requested information on 05/20. Arcelia is waiting for [employer] worker to contact her back. SS will stand by for further needs.
[2025-05-24] MEDS: EPOETIN ALFA-EPBX INJ 10,000 UNIT/ML VIAL (ESRD) 10000 UNIT IV (09:58)
[2025-05-24] MEDS: cefTRIAXone/D5w 1gm IV premix 1 GM/50 ML BAG IV (11:31)
--- NOTE | 2025-05-24 13:08 | PD.RESPRO ---
Documentation for date of: 05/24/25 Subjective Subjective Interval history: Amarjit Meade is a 62-year-old male with no past medical history presented for mechanical fall at work. States that he fell forward because his lower back has been giving out for the past few months. He has also been having chorea-like, jerky movements for the past few months and is supposed to see neurology but is having insurance issues. Has not seen a physician in many years. Per , patient has been having enuresis for the past few weeks and claims patient is stubborn and does not want to see a physician. Patient's urine is normally green due to vitamin supplements. Patient admits that he does not drink very much water nor does he urinate very much. Denies pain on urination, increase in urinary urgency, frequency or hesitancy, interrupted stream, any history of prostate issues, flank pain, or recent weight loss. Denies fever, chills, shortness of breath or chest pain. Denies family history of any kidney disease or dialysis. 05/17/25: No acute overnight events. Patient seen and examined at bedside with . No new complaints. Denies chest pain, SOB or fever. Had viveros inserted yesterday with kristofer blood on insertion. CT abd pelvis showed advanced b/l hydronephrosis, extensive abdominal and pelvic lymphadenopathy, distended urinary bladder with marked irregular bladder wall thickening, enzo posteriorly most consistent with bladder cancer. Bicarb 18, BUN still elevated 84, Cr still elevated 6.4, GFR 9, Mg high 2.7. 05/18/25: No acute overnight events. Patient seen and examined at bedside with . Vitals and labs reviewed. Plan to start hemodialysis today given no improvement with nephrostomy tubes or viveros. Lymph node biopsy not able to be completed due to LN's being too small. No new complaints. Denies chest pain, SOB or fever. 05/21/25: Patient seen and examined at bedside with . Headache much improved, lying still and comfortably in bed. Denies chest pain, SOB or fever. Cr decreased 6->3.9, BUN still elevated 42. Lt nephrostomy tube re-inserted and draining well, Rt nephrostomy tube still needs to be replaced. Hold HD today, plan for HD tomorrow, will likely need perm cath tomorrow. Spoke with Dr. Kent who plans for possible cystoscopy tomorrow without intervention. Pelvic lymph node biopsy not able to be done. 05/22/25: Patient seen and examined in dialysis. No new complaints. Denies chest pain, SOB or fever. Viveros bag bloody. Cr 4.0 and BUN 56. Plan for cystoscopy today with biopsy. 05/23/25: Patient seen and examined at bedside with . Has a very mild headache. Viveros bag still bloody. Cr 3.1, BUN 38. Continues to have some word finding difficulty even though choreiform movements have improved. 05/24/25: Patient seen and examined in dialysis. No complaints. Viveros bag is less bloody. Social work reports patient will be getting [employer] [facility] on Tuesday. Cr 3.6 and BUN 38. Denies chest pain, SOB or fever. Exam Vital Signs Temp Pulse Resp BP Pulse Ox O2 Del Method O2 Flow Rate 98 F 67 19 116/67 96 Room Air 2 05/24/25 10:50 05/24/25 11:00 05/24/25 10:50 05/24/25 10:50 05/24/25 10:50 05/24/25 08:00 05/23/25 08:00 Narrative Exam General: AOx3, thin, older than stated age, no acute distress, chorea-like movements resolved HEENT: NC/AT, mucous membranes dry, bilateral sclera anicteric, R IJ cath in place Cardiovascular: regular rate and rhythm, S1/S2 present, no murmurs appreciated Pulmonary: bilateral mild coarse breath sounds Abdominal: soft, non-tender, non-distended, no rebound/guarding, bowel sounds present, Lt and Rt nephrostomy tubes in place posteriorly, Viveros in place bag less bloody, hard nontender bladder Extremities: no peripheral edema Skin: warm and dry, intact, no rashes Neuro CN II-XII grossly intact, no focal deficits, alert, following commands Objective Labs 05/25/25 05:06 05/25/25 05:06 Labs: Laboratory Results - last 24 hr 05/24/25 05:58 WBC 9.8 RBC 3.29 L Hgb 9.8 L Hct 30.4 L MCV 92 MCH 29.8 MCHC 32.2 RDW Std Deviation 46.4 H Plt Count 261 D Neut % (Auto) 78 Lymph % (Auto) 10 [place] % (Auto) 9 Eos % (Auto) 2 Baso % (Auto) 1 Neut # (Auto) 7.6 Lymph # (Auto) 0.9 L [place] # (Auto) 0.9 H Eos # (Auto) 0.2 Baso # (Auto) 0.1 Immature Gran # (Auto) 0.08 H Absolute Nucleated RBC 0.00 Immature Gran % 1 H Nucleated RBC % 0 Sodium 138 Potassium 4.0 Chloride 99 Carbon Dioxide 26.8 Anion Gap 12 BUN 55 H Creatinine 3.6 H D Estim Creat Clear Calc 19.3 L eGFR 18 L BUN/Creatinine Ratio 15 Glucose 110 H Calculated Osmolality 291 Calcium 8.4 Corrected Calcium 8.9 Phosphorus 3.0 Magnesium 1.9 Total Bilirubin 0.3 AST 16 ALT 30 Alkaline Phosphatase 96 Total Protein 6.1 Albumin 3.4 Globulin 2.7 Albumin/Globulin Ratio 1.3 Random Vancomycin 17.8 Quality Measures Quality Measures VTE prophylaxis (SCDs) Assessment & Plan Assessment Current Active Medications: Generic Name Dose Route Start Last Admin Trade Name Freq PRN Reason Stop Dose Admin Acetaminophen 650 mg 05/16/25 10:21 05/20/25 17:26 Acetaminophen 325 Mg Tablet PO 06/15/25 10:20 650 mg Q6H PRN Administration Fever >100.4 or pain Protocol Clonazepam 0.5 mg 05/24/25 11:15 05/24/25 11:30 Clonazepam 0.5 Mg Tablet PO 05/29/25 11:14 0.5 mg BID SHADY Administration Heparin Sodium (Porcine) 3,300 unit 05/22/25 09:52 05/22/25 10:40 Heparin Sod Inj 1000 Unit/Ml Vial 10 Ml INDWELLCAT 06/05/25 09:51 3,300 unit X1 PRN Administration DIALYSIS Hydromorphone HCl 1 mg 05/23/25 13:49 05/23/25 14:01 Hydromorphone Inj 2 Mg/Ml Vial IVP 05/28/25 13:48 1 mg Q4HR PRN Administration PAIN SCALE 4-10(Mod-Sev Melatonin 3 mg 05/22/25 22:27 05/23/25 20:07 Melatonin 3 Mg Tablet PO 06/22/25 20:59 3 mg HS PRN Administration insomnia Ondansetron HCl 4 mg 05/16/25 10:21 Ondansetron Inj 2 Mg/Ml Inj 2 Ml IVP 06/15/25 10:20 Q6H PRN NAUSEA OR VOMITING Protocol Pantoprazole Sodium 40 mg 05/24/25 11:00 05/24/25 11:29 Pantoprazole Inj 40 Mg Vial IVP 06/16/25 08:59 40 mg QDAY SHADY Administration Pharmacy Consult 1 each 05/21/25 10:00 Vancomycin Pharmacy To Dose 1 Each Each IV 06/02/25 09:59 QDAY PRN CONSULT Plan Amarjit Meade is a 62-year-old male with no past medical history presented for mechanical fall at work due to chorea-like movements, found to have Cr 6.2 and BUN 92 with bladder mass and advanced hydronephrosis. #Obstructive uropathy 2/2 bladder mass causing #Bilateral hydronephrosis #CORINA Patient has no history of kidney disease or any recent lab values to compare. ~30 pack year, quit 04/2025. Reports new enuresis for the past few weeks and jerky movements for a few months, latter ddx likely uremic origin with improvement in movement post dialysis. Ddx includes obstrutive uropathy from possible bladder cancer causing CORINA vs CKD, likely ESRD as NM renal scan showed no renal fx with minimal flow to Lt kidney and reduced flow to Rt kidney CT abd pelvis showed advanced b/l hydronephrosis, extensive abdominal and pelvic lymphadenopathy, distended urinary bladder with marked irregular bladder wall thickening, enzo posteriorly most consistent with bladder cancer. MRI brain showed no mets Lymph node biopsies not able to be done. Nephrostomy tubes: b/l placed 05/17, L fell out 05/19, L replaced 05/20, R replaced 05/21 Perm cath inserted 05/21 Received HD 05/18, 05/19, 05/20, 05/22 Cystoscopy 05/22 showed large prostate and very large bladder tumor occupying both ureteral orifices, tumor resected with bleeding stopped with fulguration Renal US showed severe right hydronephrosis, L hydronephrosis much improved. Plan: -HD today, waiting for insurance -Per urology, recs appreciated: irrigate viveros if has clot retention, at this time not a good candidate for surgical intervention, repeat kidney US in 1 week #Chorea #Normocytic anemia #Hyperparathyroidism -Management per primary team. Plan of care discussed with attending Dr. Santana. Joanna Matamoros, DO Internal Medicine PGY-1 Attending Provider Attestation/Addendum Patient seen and examined with resident physician Dr. Matamoros. Note reviewed, agree with findings and recommendations. 05/22/2025 patient with bilateral severe hydronephrosis Spoke to his Marisabel. Patient currently seen on dialysis. Tolerating dialysis without any problems. Hemodialysis for 3 hours, 2K, ultrafiltration 0 L, Epogen 6000, no heparin ordered. Plan of care discussed with the dialysis nurse. Please see dialysis flowsheet for further details. Patient had cystoscopy-showed huge bladder tumor. Biopsy was taken. Spoke to Dr. Hernandez-patient needs to go to tertiary care center for huge bladder tumor. foundry worker general to help him with insurance needs. Outpatient dialysis also should be arranged. Spoke to primary team. 05/23/2025 spoke to Marisabel at bedside. Next dialysis scheduled for tomorrow. Outpatient dialysis will be arranged once his insurance is fixed. He needs outpatient tertiary care center for his huge bladder tumor. Renal ultrasound showed a huge right hydronephrosis. Will plan for right nephrostomy tube exchange. Probably it is not working.
--- NOTE | 2025-05-24 13:33 | PD.IDPROG ---
Subjective Subjective Interval history: asked to see today. pt admit was 05/16, 8 d ago bc with coag neg staph Exam Vital Signs Temp Pulse Resp BP Pulse Ox O2 Del Method O2 Flow Rate 97.3 F 93 16 109/76 97 Room Air 2 05/24/25 12:00 05/24/25 12:00 05/24/25 12:00 05/24/25 12:00 05/24/25 12:00 05/24/25 12:00 05/23/25 08:00 Objective - Internal Medicine Labs 05/24/25 05:58 05/24/25 05:58 Labs: Laboratory Results - last 24 hr 05/24/25 05:58 WBC 9.8 RBC 3.29 L Hgb 9.8 L Hct 30.4 L MCV 92 MCH 29.8 MCHC 32.2 RDW Std Deviation 46.4 H Plt Count 261 D Neut % (Auto) 78 Lymph % (Auto) 10 [place] % (Auto) 9 Eos % (Auto) 2 Baso % (Auto) 1 Neut # (Auto) 7.6 Lymph # (Auto) 0.9 L [place] # (Auto) 0.9 H Eos # (Auto) 0.2 Baso # (Auto) 0.1 Immature Gran # (Auto) 0.08 H Absolute Nucleated RBC 0.00 Immature Gran % 1 H Nucleated RBC % 0 Sodium 138 Potassium 4.0 Chloride 99 Carbon Dioxide 26.8 Anion Gap 12 BUN 55 H Creatinine 3.6 H D Estim Creat Clear Calc 19.3 L eGFR 18 L BUN/Creatinine Ratio 15 Glucose 110 H Calculated Osmolality 291 Calcium 8.4 Corrected Calcium 8.9 Phosphorus 3.0 Magnesium 1.9 Total Bilirubin 0.3 AST 16 ALT 30 Alkaline Phosphatase 96 Total Protein 6.1 Albumin 3.4 Globulin 2.7 Albumin/Globulin Ratio 1.3 Random Vancomycin 17.8 Assessment & Plan 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 may have urothelial cancer awaiting path from bx. since bc cleared relatively rapidly, neg at > 48h from 05/21 , so rx can be with hd thru 06/05. will see again briefly tuesday if he remains. Time Spent With Patient Time: Total time spent is greater than 50% in coordination of care (as documented) at patient's floor/unit and/or counseling patient:
--- NOTE | 2025-05-24 13:56 | PD.RESPRO ---
Documentation for date of: 05/24/25 Subjective Subjective Interval history: Patient evaluated at bedside. He reports stable abnormal chorea like movements. Patient reports that he was able to eat a hearty breakfast this morning, has an appropriate appetite, and denies pain. Reports no new symptoms Exam Vital Signs Temp Pulse Resp BP Pulse Ox O2 Del Method O2 Flow Rate 97.3 F 93 16 109/76 97 Room Air 2 05/24/25 12:00 05/24/25 12:00 05/24/25 12:00 05/24/25 12:00 05/24/25 12:00 05/24/25 12:05/23/25 08:00 Narrative Exam General: No acute distress, well nourished Eye: PERRL, EOMI, normal conjunctiva, no scleral icterus HENT: Normocephalic, atraumatic, hearing intact to conversation at normal volume, moist oral mucosa. Patient does not have upper teeth Neck: Supple, non-tender, no JVD, no lymphadenopathy Lungs: Non-labored respirations, symmetric chest rise Heart: Peripheral pulses intact bilaterally Abdomen: Soft, non-tender, non-distended Musculoskeletal: Normal range of motion and strength Skin: Skin is warm, dry, no rashes or lesions. Psychiatric: Cooperative, appropriate mood and affect Neurologic: Mental status: Orientation: AOx3 Communication: Patient is cooperative and can follow simple instructions Language: Speech somewhat difficult to understand as patient's upper teeth removed previously, normal rate and volume, comprehension intact, repetition intact, naming intact. No word finding difficulties appreciated on exam Cranial nerves: CN II: Visual esquivel intact CN III: Pupils equal, round, and reactive to light CN III, IV, : No gaze deviation, no nystagmus Horizontal pursuit: intact Vertical pursuit: intact Ptosis: none CN V: Facial sensation to light touch intact bilaterally at the forehead, cheeks, and jaw line CN VII: Face symmetric, no facial droop appreciated CN VIII: Able to hear and respond to conversation at normal volume, intact to finger rub CN IX, X: Palate elevation symmetric, uvula midline CN XI: Head turn and shoulder shrug strong, symmetric bilaterally CN XII: Normal tongue protrusion without deviation, no fasciculations Motor: Normal tone Generalized muscle atrophy appreciated Abnormal movements appreciated in in all extremities, most prominent in bilateral feet and mouth (subjectively associated with feeling of restlessness) Muscle strength: Shoulder abduction: R 5/5 L 5/5 Elbow flexion: R 5/5 L 5/5 Elbow extension: R 5/5 L 5/5 Hip flexion: R 5/5 L 5/5 Hip extension: R 5/5 L 5/5 Knee flexion: R 5/5 L 5/5 Knee extension: R 5/5 L 5/5 Sensory: RUE: Light touch intact LUE: Light touch intact RLE: Light touch intact LLE: Light touch intact Reflexes: Biceps (C5-6): R 2+ L 2+ Brachioradialis (C5-6): R 2+ L 2+ Triceps (C7-8): R 2+ L 2+ Patellae (L3-4): R 2+ L 2+ Achilles (S1-2):R 2+ L 2+ Cerebellum: RUE: No dysmetria (finger to nose), no dysdiadochokinesia (rapid alternating movements) LUE: No dysmetria (finger to nose), no dysdiadochokinesia (rapid alternating movements) RLE: No dysmetria (heel to vega) LLE: No dysmetria (heel to vega) Objective Labs 05/25/25 05:06 05/25/25 05:06 Labs: Laboratory Results - last 24 hr 05/24/25 05:58 WBC 9.8 RBC 3.29 L Hgb 9.8 L Hct 30.4 L MCV 92 MCH 29.8 MCHC 32.2 RDW Std Deviation 46.4 H Plt Count 261 D Neut % (Auto) 78 Lymph % (Auto) 10 [place] % (Auto) 9 Eos % (Auto) 2 Baso % (Auto) 1 Neut # (Auto) 7.6 Lymph # (Auto) 0.9 L [place] # (Auto) 0.9 H Eos # (Auto) 0.2 Baso # (Auto) 0.1 Immature Gran # (Auto) 0.08 H Absolute Nucleated RBC 0.00 Immature Gran % 1 H Nucleated RBC % 0 Sodium 138 Potassium 4.0 Chloride 99 Carbon Dioxide 26.8 Anion Gap 12 BUN 55 H Creatinine 3.6 H D Estim Creat Clear Calc 19.3 L eGFR 18 L BUN/Creatinine Ratio 15 Glucose 110 H Calculated Osmolality 291 Calcium 8.4 Corrected Calcium 8.9 Phosphorus 3.0 Magnesium 1.9 Total Bilirubin 0.3 AST 16 ALT 30 Alkaline Phosphatase 96 Total Protein 6.1 Albumin 3.4 Globulin 2.7 Albumin/Globulin Ratio 1.3 Random Vancomycin 17.8 Quality Measures Quality Measures VTE prophylaxis (SCDs) Assessment & Plan Assessment Current Active Medications: Generic Name Dose Route Start Last Admin Trade Name Freq PRN Reason Stop Dose Admin Acetaminophen 650 mg 05/16/25 10:21 05/20/25 17:26 Acetaminophen 325 Mg Tablet PO 06/15/25 10:20 650 mg Q6H PRN Administration Fever >100.4 or pain Protocol Clonazepam 0.5 mg 05/24/25 11:15 05/24/25 11:30 Clonazepam 0.5 Mg Tablet PO 05/29/25 11:14 0.5 mg BID SHADY Administration Heparin Sodium (Porcine) 3,300 unit 05/22/25 09:52 05/22/25 10:40 Heparin Sod Inj 1000 Unit/Ml Vial 10 Ml INDWELLCAT 06/05/25 09:51 3,300 unit X1 PRN Administration DIALYSIS Hydromorphone HCl 1 mg 05/23/25 13:49 05/23/25 14:01 Hydromorphone Inj 2 Mg/Ml Vial IVP 05/28/25 13:48 1 mg Q4HR PRN Administration PAIN SCALE 4-10(Mod-Sev Melatonin 3 mg 05/22/25 22:27 05/23/25 20:07 Melatonin 3 Mg Tablet PO 06/22/25 20:59 3 mg HS PRN Administration insomnia Ondansetron HCl 4 mg 05/16/25 10:21 Ondansetron Inj 2 Mg/Ml Inj 2 Ml IVP 06/15/25 10:20 Q6H PRN NAUSEA OR VOMITING Protocol Pantoprazole Sodium 40 mg 05/24/25 11:00 05/24/25 11:29 Pantoprazole Inj 40 Mg Vial IVP 06/16/25 08:59 40 mg QDAY SHADY Administration Pharmacy Consult 1 each 05/21/25 10:00 Vancomycin Pharmacy To Dose 1 Each Each IV 06/02/25 09:59 QDAY PRN CONSULT Plan # Abnormal movements, present on admission # Word-finding difficulty, present on admission # Previous falls Abnormal movements improved after nephrostomy tube placement and hemodialysis. Patient comprehension, repetition, naming intact. No aphasia appreciated on exam. No focal neuro deficit appreciated Pt denies hx of psychiatric medications No symptom improvement with clonazepam trial Valbenazine/deutetrabenazine nonformulary/not available in this hospital MRI brain w/o 05/20: no acute hemorrhage. Moderate chronic microvascular white matter changes. Prominent atrophy. No focal metastases. TTE 05/23: LVEF 50-55%, no vegetations DDX: tardive dyskinesia, akathisia, azotemia, infection, paraneoplastic, restless leg syndrome, Michael's disease Plan: - Discontinue clonazepam as patient did not have symptom relief with trial - Start Ropinirole 0.25 mg TID - Serum copper, ceruloplasmin, urinary copper - Continue management of bladder mass, ESRD per primary #Newly Diagnosed ESRD #CORINA intrarenal vs Post obstructive uropathy #B/L hydronephrosis #Bladder mass #Pneumonia #CAUTI vs Catheter-related bloodstream infection #2/2 BCx GPC #Anemia of chronic disease #Hyperparathyroidism Plan: - Management per primary Plan discussed with Dr. Cande Dyson, PGY1 Attending Provider Attestation/Addendum Patient was seen and examined at the bedside and I agreed with resident's findings, assessment and plan of care. As he sill has abnormal movements, will try Requip 0.25 mg tid and dc clonazepam.
--- NOTE | 2025-05-24 15:53 | ESCONSULT_ITS ---
RE: ERIC LONGORIA : 1960 DATE OF CONSULTATION: 05/24/2025 REFERRING PHYSICIAN: Dr. Davis, Hospitalist. REASON FOR CONSULTATION: IV catheter bacteremia with coagulase-negative staph. HISTORY OF PRESENT ILLNESS: The patient is an unfortunate 64-year-old man. He appears to have some choreoathetoid movements suggesting that they may be chronic as his family does not seem struck by them at all. 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 PAST MEDICAL HISTORY: His medical problems include recently discovered chronic kidney disease and right-sided hydronephrosis not improved with drainage procedures. Other medical problems include mental retardation, developmental delay, presumptively with choreoathetoid movements. PAST SURGICAL HISTORY: Includes nephrostomy tubes and bilateral knee surgeries by Dr. Prasad, more scoping related than anything. ALLERGIES: NONE NOTED. IMMUNIZATIONS: Last tetanus is not known. He does not take a flu shot every year. He has had 2 COVID vaccines and has not had pneumococcal vaccination. FAMILY HISTORY: Unremarkable. SOCIAL HISTORY: He lives with family. He was a smoker until quitting about 4 weeks ago. PHYSICAL EXAMINATION: On exam, the patient has obvious choreoathetoid movements, which do not seem to be striking the family, his , or his son in any way. As a result, they may be somewhat chronic and longstanding. RECOMMENDATIONS: I am going to go ahead and leave him on vancomycin with dialysis through 06/05. I am usually going to go 2 weeks from his first negatives and since they were done in the evening of the , we are going to go through the as day one and go through 06/06. I will see him again more superficially on Tuesday. DT: 13:57:19 TT: 15:02:00 Ref: [id number] - TID: [id number] MTD
[2025-05-24] MEDS: MELATONIN 3 MG TABLET PO (22:09)
[2025-05-25] VITALS (8 sets, daily range): BP systolic 102–123; BP diastolic 58–71; PULSE 80–103; RESP 17–18; TEMP 36.4–36.6; O2SAT 95–99; BMI 17.5
[2025-05-25 05:53] LABS: Basophils # (Auto) 0.1 Thou/mm3 (0.0-0.2); Basophils % (Auto) 1 % (0-2.5); Eosinophils # (Auto) 0.2 Thou/mm3 (0.0-0.5); Eosinophils % (Auto) 2 % (0-10); Hematocrit 30.9 % (41.0-53.0); Hemoglobin 10.2 g/dL (13.5-16.0); Immature Granulocytes Auto 0.23 Thou/mm3 (0.00-0.00); Lymphocytes # (Auto) 1.2 Thou/mm3 (1.0-4.8); Lymphocytes % (Auto) 11 % (10-50); Mean Corpuscular HGB Conc 33.0 g/dl (31.0-37.0); Mean Corpuscular Hemoglobin 30.3 pg (25.0-35.0); Mean Corpuscular Volume 92 fL (80-100); Monocytes # (Auto) 0.9 Thou/mm3 (0.0-0.8); Monocytes % (Auto) 8 % (0-12); Neutrophils # (Auto) 8.7 Thou/mm3 (1.8-7.7); Neutrophils % (Auto) 77 % (37-80); Nucleated Red Blood Cell # 0.00 Thou/mm3 (0.00-0.00); Nucleated Red Blood Cell % 0 /100 WBC (0); Platelet Count 237 Thou/mm3 (140-440); RDW Standard Deviation 45.7 fL (35.1-43.9); Red Blood Count 3.37 Miln/mm3 (4.50-5.90); White Blood Count 11.4 Thou/mm3 (3.8-10.6)
[2025-05-25 06:18] LABS: Alanine Aminotransferase 29 U/L (10-49); Albumin, Serum 3.4 gm/dL (3.4-4.8); Albumin/Globulin Ratio 1.2 (1.2-2.2); Alkaline Phosphatase 101 U/L (46-116); Anion Gap 12 (7-16); Aspartate Amino Transferase 18 U/L (0-34); BUN/Creatinine Ratio 15 Ratio (12-20); Bilirubin,Total 0.2 mg/dL (0.3-1.2); Blood Urea Nitrogen 48 mg/dL (9-23); Calcium 8.5 mg/dL (8.3-10.6); Calcium (Corrected) 9.0 mg/dL (8.5-10.1); Carbon Dioxide 25.3 mMol/L (20.0-31.0); Chloride 103 mMol/L (98-107); Creatinine (Component) 3.1 mg/dL (0.6-1.3); Estimated Creatinine Clearance 22.4 mL/min (>60); Globulin 2.8 gm/dL (2.3-3.5); Glucose 111 mg/dL (74-106); Magnesium 1.9 mg/dL (1.6-2.6); Osmolality,Calculated 293 (275-295); Phosphorous 3.0 mg/dL (2.4-5.1); Potassium 3.9 mMol/L (3.4-5.1); Sodium 140 mMol/L (136-145); Total Protein 6.2 gm/dL (5.7-8.2); Vancomycin,Random 10.4 mcg/mL; eGFR 22 See Note
--- NOTE | 2025-05-25 09:21 | PD.RESPRO ---
Documentation for date of: 05/25/25 Subjective Subjective Interval history: Amarjit Meade is a 62-year-old male with no past medical history presented for mechanical fall at work. States that he fell forward because his lower back has been giving out for the past few months. He has also been having chorea-like, jerky movements for the past few months and is supposed to see neurology but is having insurance issues. Has not seen a physician in many years. Per , patient has been having enuresis for the past few weeks and claims patient is stubborn and does not want to see a physician. Patient's urine is normally green due to vitamin supplements. Patient admits that he does not drink very much water nor does he urinate very much. Denies pain on urination, increase in urinary urgency, frequency or hesitancy, interrupted stream, any history of prostate issues, flank pain, or recent weight loss. Denies fever, chills, shortness of breath or chest pain. Denies family history of any kidney disease or dialysis. 05/17/25: No acute overnight events. Patient seen and examined at bedside with . No new complaints. Denies chest pain, SOB or fever. Had viveros inserted yesterday with kristofer blood on insertion. CT abd pelvis showed advanced b/l hydronephrosis, extensive abdominal and pelvic lymphadenopathy, distended urinary bladder with marked irregular bladder wall thickening, enzo posteriorly most consistent with bladder cancer. Bicarb 18, BUN still elevated 84, Cr still elevated 6.4, GFR 9, Mg high 2.7. 05/18/25: No acute overnight events. Patient seen and examined at bedside with . Vitals and labs reviewed. Plan to start hemodialysis today given no improvement with nephrostomy tubes or viveros. Lymph node biopsy not able to be completed due to LN's being too small. No new complaints. Denies chest pain, SOB or fever. 05/21/25: Patient seen and examined at bedside with . Headache much improved, lying still and comfortably in bed. Denies chest pain, SOB or fever. Cr decreased 6->3.9, BUN still elevated 42. Lt nephrostomy tube re-inserted and draining well, Rt nephrostomy tube still needs to be replaced. Hold HD today, plan for HD tomorrow, will likely need perm cath tomorrow. Spoke with Dr. Kent who plans for possible cystoscopy tomorrow without intervention. Pelvic lymph node biopsy not able to be done. 05/22/25: Patient seen and examined in dialysis. No new complaints. Denies chest pain, SOB or fever. Viveros bag bloody. Cr 4.0 and BUN 56. Plan for cystoscopy today with biopsy. 05/23/25: Patient seen and examined at bedside with . Has a very mild headache. Viveros bag still bloody. Cr 3.1, BUN 38. Continues to have some word finding difficulty even though choreiform movements have improved. 05/24/25: Patient seen and examined in dialysis. No complaints. Viveros bag is less bloody. Social work reports patient will be getting [employer] on Tuesday. Cr 3.6 and BUN 38. Denies chest pain, SOB or fever. Exam Vital Signs Temp Pulse Resp BP Pulse Ox O2 Del Method O2 Flow Rate 97.6 F 88 17 108/71 97 Room Air 2 05/25/25 07:52 05/25/25 07:52 05/25/25 07:52 05/25/25 07:52 05/25/25 07:52 05/25/25 07:52 05/23/25 08:00 Objective Labs 05/25/25 05:06 05/25/25 05:06 Labs: Laboratory Results - last 24 hr 05/25/25 05:06 WBC 11.4 H RBC 3.37 L Hgb 10.2 L Hct 30.9 L MCV 92 MCH 30.3 MCHC 33.0 RDW Std Deviation 45.7 H Plt Count 237 Neut % (Auto) 77 Lymph % (Auto) 11 [place] % (Auto) 8 Eos % (Auto) 2 Baso % (Auto) 1 Neut # (Auto) 8.7 H Lymph # (Auto) 1.2 [place] # (Auto) 0.9 H Eos # (Auto) 0.2 Baso # (Auto) 0.1 Immature Gran # (Auto) 0.23 H Absolute Nucleated RBC 0.00 Immature Gran % 2 H Nucleated RBC % 0 Sodium 140 Potassium 3.9 Chloride 103 Carbon Dioxide 25.3 Anion Gap 12 BUN 48 H Creatinine 3.1 H D Estim Creat Clear Calc 22.4 L eGFR 22 L BUN/Creatinine Ratio 15 Glucose 111 H Calculated Osmolality 293 Calcium 8.5 Corrected Calcium 9.0 Phosphorus 3.0 Magnesium 1.9 Total Bilirubin 0.2 L AST 18 ALT 29 Alkaline Phosphatase 101 Total Protein 6.2 Albumin 3.4 Globulin 2.8 Albumin/Globulin Ratio 1.2 Random Vancomycin 10.4 Quality Measures Quality Measures VTE prophylaxis (SCDs) Assessment & Plan Assessment Current Active Medications: Generic Name Dose Route Start Last Admin Trade Name Freq PRN Reason Stop Dose Admin Acetaminophen 650 mg 05/16/25 10:21 05/20/25 17:26 Acetaminophen 325 Mg Tablet PO 06/15/25 10:20 650 mg Q6H PRN Administration Fever >100.4 or pain Protocol Heparin Sodium (Porcine) 3,300 unit 05/22/25 09:52 05/22/25 10:40 Heparin Sod Inj 1000 Unit/Ml Vial 10 Ml INDWELLCAT 06/05/25 09:51 3,300 unit X1 PRN Administration DIALYSIS Hydromorphone HCl 1 mg 05/23/25 13:49 05/23/25 14:01 Hydromorphone Inj 2 Mg/Ml Vial IVP 05/28/25 13:48 1 mg Q4HR PRN Administration PAIN SCALE 4-10(Mod-Sev Vancomycin/Sodium Chloride 750 mg in 150 mls @ 120 mls/hr 05/25/25 10:00 Vancomycin/Ns 750 Mg Ivpb IV 05/25/25 11:14 X1 ONE Melatonin 3 mg 05/22/25 22:27 05/24/25 22:09 Melatonin 3 Mg Tablet PO 06/22/25 20:59 3 mg HS PRN Administration insomnia Ondansetron HCl 4 mg 05/16/25 10:21 Ondansetron Inj 2 Mg/Ml Inj 2 Ml IVP 06/15/25 10:20 Q6H PRN NAUSEA OR VOMITING Protocol Pantoprazole Sodium 40 mg 05/24/25 11:00 05/25/25 09:15 Pantoprazole Inj 40 Mg Vial IVP 06/16/25 08:59 40 mg QDAY SHADY Administration Pharmacy Consult 1 each 05/21/25 10:00 Vancomycin Pharmacy To Dose 1 Each Each IV 06/05/25 09:59 QDAY PRN CONSULT Ropinirole HCl 0.25 mg 05/24/25 17:30 05/25/25 05:46 Ropinirole Hcl 0.25 Mg Tablet PO 06/23/25 17:29 0.25 mg TID SHADY Administration Plan Amarjit Meade is a 62-year-old male with no past medical history presented for mechanical fall at work due to chorea-like movements, found to have Cr 6.2 and BUN 92 with bladder mass and advanced hydronephrosis. #Obstructive uropathy 2/2 bladder mass causing #Bilateral hydronephrosis #CORINA Patient has no history of kidney disease or any recent lab values to compare. ~30 pack year, quit 04/2025. Reports new enuresis for the past few weeks and jerky movements for a few months, latter ddx likely uremic origin with improvement in movement post dialysis. Ddx includes obstrutive uropathy from possible bladder cancer causing CORINA vs CKD, likely ESRD as NM renal scan showed no renal fx with minimal flow to Lt kidney and reduced flow to Rt kidney CT abd pelvis showed advanced b/l hydronephrosis, extensive abdominal and pelvic lymphadenopathy, distended urinary bladder with marked irregular bladder wall thickening, enzo posteriorly most consistent with bladder cancer. MRI brain showed no mets Lymph node biopsies not able to be done. Nephrostomy tubes: b/l placed 05/17, L fell out 05/19, L replaced 05/20, R replaced 05/21 Perm cath inserted 05/21 Received HD 05/18, 05/19, 05/20, 05/22 Cystoscopy 05/22 showed large prostate and very large bladder tumor occupying both ureteral orifices, tumor resected with bleeding stopped with fulguration Renal US showed severe right hydronephrosis, L hydronephrosis much improved. Plan: -HD today, waiting for insurance -Per urology, recs appreciated: irrigate viveros if has clot retention, at this time not a good candidate for surgical intervention, repeat kidney US in 1 week #Chorea #Normocytic anemia #Hyperparathyroidism -Management per primary team. Plan of care discussed with attending Dr. Santana. Liborio Shepard MD PGY-1
[2025-05-25] MEDS: VANCOMYCIN/NS 750 MG IVPB 750 MG/150 ML BAG 120 MG IV (10:40)
[2025-05-25 13:16] LABS: HIV (1&2) Antibody Rapid Non-Reactive
--- NOTE | 2025-05-25 13:30 | PD.NEPHPROG ---
Documentation for date of: 05/25/25 Subjective Subjective Interval history: Amarjit Meade is a 62-year-old male with no past medical history presented for mechanical fall at work. States that he fell forward because his lower back has been giving out for the past few months. He has also been having chorea-like, jerky movements for the past few months and is supposed to see neurology but is having insurance issues. Has not seen a physician in many years. Per , patient has been having enuresis for the past few weeks and claims patient is stubborn and does not want to see a physician. Patient's urine is normally green due to vitamin supplements. Patient admits that he does not drink very much water nor does he urinate very much. Denies pain on urination, increase in urinary urgency, frequency or hesitancy, interrupted stream, any history of prostate issues, flank pain, or recent weight loss. Denies fever, chills, shortness of breath or chest pain. Denies family history of any kidney disease or dialysis. 05/23/25: Patient seen and examined at bedside with . Has a very mild headache. [place] bag still bloody. Cr 3.1, BUN 38. Continues to have some word finding difficulty even though choreiform movements have improved. 05/24/25: Patient seen and examined in dialysis. No complaints. [place] bag is less bloody. Social work reports patient will be getting [employer] on Tuesday. Cr 3.6 and BUN 38. Denies chest pain, SOB or fever. 05/25/2025 Marisabel at bedside. Patient continues to have some restlessness, confusion and speech problems. Neurology was consulted. Dr Castellon was called-recommended to continue with ropinirole. She is planning to do possible LP on Tuesday if no improvement. MRI showed no acute stroke. Patient so far received 4 dialysis sessions. 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 Marisabel Able to get him insurance. Spoke to Dr. Hernandez-patient seems to have aggressive bladder cancer causing significant hydronephrosis and pain. Right nephrostomy tube not draining any urine. Will try to reposition on Tuesday. Spoke to primary team to start the transfer to higher level of care for cystectomy and ileal conduit. and patient had several questions which were answered to their satisfaction. Time spent today more than 40 minutes. Review of Systems Review of Systems Narrative Review of Systems: CONSTITUTIONAL: Complaining of fatigue CARDIOVASCULAR: Patient denies any chest pain, shortness of breath, swelling in the lower extremities. PULMONARY: Patient denies any shortness of breath, cough. GASTROINTESTINAL: Complaining of abdominal discomfort, decreased p.o. intake GENITOURINARY: Patient has hematuria, urinary problems SKIN: Denies any rash. MUSCULOSKELETAL: gait imbalance with restlessness NEUROLOGICAL: Confusion noted PSYCHIATRIC: Denies any depression or anxiety. LYMPHATICS : No lymphadenopathy Exam Vital Signs Temp Pulse Resp BP Pulse Ox O2 Del Method O2 Flow Rate 36.4 C 90 18 112/63 95 Room Air 2 05/25/25 11:41 05/25/25 12:00 05/25/25 11:41 05/25/25 11:41 05/25/25 11:41 05/25/25 11:41 05/23/25 08:00 Narrative Exam GENERAL APPEARANCE: Patient seems to have lost weight. Temporal wasting noted NECK: Neck supple, no JVD or bruit CARDIOVASCULAR: Heart regular, no murmurs LUNGS/CHEST: Chest clear to auscultation. No rales, rhonchi, wheezing ABDOMEN: Soft, mild discomfort noted in the lower abdomen no masses. Normal bowel sounds. EXTREMITIES: No edema, clubbing or cyanosis. SKIN: Skin exam normal without any rashes. IJ dialysis catheter noted MUSCULOSKELETAL: In bed NEUROLOGICAL : Able to move his extremities. Noted speech impairment. Objective Labs 05/25/25 05:06 05/25/25 05:06 Labs: Laboratory Results - last 24 hr 05/25/25 05:06 WBC 11.4 H RBC 3.37 L Hgb 10.2 L Hct 30.9 L MCV 92 MCH 30.3 MCHC 33.0 RDW Std Deviation 45.7 H Plt Count 237 Neut % (Auto) 77 Lymph % (Auto) 11 [place] % (Auto) 8 Eos % (Auto) 2 Baso % (Auto) 1 Neut # (Auto) 8.7 H Lymph # (Auto) 1.2 [place] # (Auto) 0.9 H Eos # (Auto) 0.2 Baso # (Auto) 0.1 Immature Gran # (Auto) 0.23 H Absolute Nucleated RBC 0.00 Immature Gran % 2 H Nucleated RBC % 0 Sodium 140 Potassium 3.9 Chloride 103 Carbon Dioxide 25.3 Anion Gap 12 BUN 48 H Creatinine 3.1 H D Estim Creat Clear Calc 22.4 L eGFR 22 L BUN/Creatinine Ratio 15 Glucose 111 H Calculated Osmolality 293 Calcium 8.5 Corrected Calcium 9.0 Phosphorus 3.0 Magnesium 1.9 Total Bilirubin 0.2 L AST 18 ALT 29 Alkaline Phosphatase 101 Total Protein 6.2 Albumin 3.4 Globulin 2.8 Albumin/Globulin Ratio 1.2 Random Vancomycin 10.4 HIV 1&2 Antibody Rapid Non-Reactive Assessment & Plan Additional Assessment & Plan Additional Plan: Amarjit Meade is a 62-year-old male with no past medical history presented for mechanical fall at work due to chorea-like movements, found to have Cr 6.2 and BUN 92 with bladder mass and advanced hydronephrosis. #Obstructive uropathy 2/2 bladder mass causing #Bilateral hydronephrosis #CORINA Patient has no history of kidney disease or any recent lab values to compare. ~30 pack year, quit 04/2025. Reports new enuresis for the past few weeks and jerky movements for a few months, latter ddx likely uremic origin with improvement in movement post dialysis. Ddx includes obstrutive uropathy from possible bladder cancer causing CORINA vs CKD, likely ESRD as NM renal scan showed no renal fx with minimal flow to Lt kidney and reduced flow to Rt kidney CT abd pelvis showed advanced b/l hydronephrosis, extensive abdominal and pelvic lymphadenopathy, distended urinary bladder with marked irregular bladder wall thickening, enzo posteriorly most consistent with bladder cancer. MRI brain showed no mets Lymph node biopsies not able to be done. Nephrostomy tubes: b/l placed 05/17, L fell out 05/19, L replaced 05/20, R replaced 05/21 Perm cath inserted 05/21 Received HD 05/18, 05/19, 05/20, 05/22, 05/24 Cystoscopy 05/22 showed large prostate and very large bladder tumor occupying both ureteral orifices, tumor resected with bleeding stopped with fulguration Renal US showed severe right hydronephrosis, L hydronephrosis much improved. Patient needs transfer to higher level of care #[place] movements-better #Normocytic anemia #Hyperparathyroidism -Management per primary team. Patient had cystoscopy-showed large bladder tumor. Biopsy was taken. Spoke to Dr. Hernandez-patient needs to go to tertiary care center for large aggressive bladder tumor. 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 Outpatient dialysis also should be arranged. Spoke to primary team. Despite bilateral nephrostomy tubes-repeat renal ultrasound showed a large right hydronephrosis. Will plan for right nephrostomy tube exchange on Tuesday. Probably it is not working. Plan of care discussed with primary team.
--- NOTE | 2025-05-25 15:01 | PC.CC ---
Addendum entered by Kvng Valladares RN 05/25/25 19:18: 1914 received call from Zaria with [facility] that her urology DrPawel Smith had a long conversation with Dr. Rojas and he stated he doesn't do radical cystectomy, pt needs higher level of care. Therefore, transfer is declined. Addendum entered by Kvng Valladares RN 05/25/25 18:55: 1845 - Called Zaria back and gave her Dr Rojas phone number for [id number], [facility] will recontact with disposition [phone] - Zaria from [facility] called requesting [id number]; Zaria was advised that we would call her back Addendum entered by Kvng Valladares RN 05/25/25 17:27: 1725 - received call back from JOSE Brar at [facility], they are declining the transfer because they do not have Oncology services available. Addendum entered by Kvng Valladares RN 05/25/25 17:00: 1650 - spoke with Megha at [facility] and initiated request for transfer. Clinical information has been submitted for review and the [facility] will call back. Original Note: 1400 - referral received to transfer pt for Urology/Oncology. Pt needing cystectomy with ileal conduit. Packet started and sent to [facility] and [facility].
--- NOTE | 2025-05-25 16:48 | ESPR_ITS ---
<Statement entered by Lachelle Josue MD - 05/31/25 07:32> I reviewed above note and agree with findings and plans. I have also personally examined the patient with medicine team and went over assessment and plan with medical team including sourcing intern and resident physician. <Statement entered by Abhay Rojas MD - 05/25/25 17:30> Patient was seen and examined at the bedside. No acute overnight events were reported. Patient did not go for dialysis today. Clarity Developer recommended that patient will benefit with cystectomy with ileal conduit and would need transfer to higher care facility for possible bladder cancer surgery. Choreiform movements has not improved much. Pending neurology recommendations. Follow-up on ceruloplasmin and copper levels. Patient insurance approved for [employer]. Hemoglobin stable at 10.2. Will follow-up with transfer nurse for further process. All labs and orders were reviewed. I discussed and supervised with the sourcing intern physician who took care of this patient. I personally saw and examined the patient. I agree with most of the assessment and plan. Disclaimer: Despite multiple revisions, due to the dictation software being used, the document bellow may not be free of grammatical errors including phonetic/typographic errors. However, this does not deter from our commitment to providing health care in the patient's best interest in mind. Plan of care discussed with attending Physician Dr. Joselo Rojas MD PGY-3 Documentation for date of: 05/25/25 Subjective Subjective Interval history: No overnight events. Evaluated at bedside. Renal US showed severe right hydronephrosis, L hydronephrosis much improved. ID recommends leave pt on vancomycin with dialysis through 06/05. Plan for pt transfer to higher level of care for management of bladder mass. Exam Vital Signs Temp Pulse Resp BP Pulse Ox O2 Del Method O2 Flow Rate 97.6 F 84 18 123/67 95 Room Air 2 05/25/25 16:00 05/25/25 16:00 05/25/25 16:05/25/25 16:00 05/25/25 16:05/25/25 16:00 05/23/25 08:00 Narrative Exam General: malnourished, frail in no distress. Oriented x 3. Afebrile. Skin: No rash, unusual bruising or prominent lesions Head: Normocephalic, atraumatic, no visible or palpable masses, depressions, or scaring. Eyes: conjunctiva clear, sclera non-icteric, no exudates or hemorrhages. Near sighted. Heart: Regular rate and rhythm Lungs: Clear to auscultation. No rales, wheeze, or rhonchi Abdomen: No tenderness, guarding or rigidity. Back: Right nephrostomy tube in place. Left nephrostomy tube in place. Extremities: No amputations or deformities, cyanosis, edema or varicosities, peripheral pulses intact. Perm Hemodialysis catheter in place at right subclavian jugular vein. Neurologic: Alert and oriented x 3, chorea like movements decreased. Unclear speech at baseline due to missing of upper dental plate. Objective Labs 05/30/25 04:37 05/30/25 04:37 Labs: Laboratory Results - last 24 hr 05/25/25 05:06 WBC 11.4 H RBC 3.37 L Hgb 10.2 L Hct 30.9 L MCV 92 MCH 30.3 MCHC 33.0 RDW Std Deviation 45.7 H Plt Count 237 Neut % (Auto) 77 Lymph % (Auto) 11 [place] % (Auto) 8 Eos % (Auto) 2 Baso % (Auto) 1 Neut # (Auto) 8.7 H Lymph # (Auto) 1.2 [place] # (Auto) 0.9 H Eos # (Auto) 0.2 Baso # (Auto) 0.1 Immature Gran # (Auto) 0.23 H Absolute Nucleated RBC 0.00 Immature Gran % 2 H Nucleated RBC % 0 Sodium 140 Potassium 3.9 Chloride 103 Carbon Dioxide 25.3 Anion Gap 12 BUN 48 H Creatinine 3.1 H D Estim Creat Clear Calc 22.4 L eGFR 22 L BUN/Creatinine Ratio 15 Glucose 111 H Calculated Osmolality 293 Calcium 8.5 Corrected Calcium 9.0 Phosphorus 3.0 Magnesium 1.9 Total Bilirubin 0.2 L AST 18 ALT 29 Alkaline Phosphatase 101 Total Protein 6.2 Albumin 3.4 Globulin 2.8 Albumin/Globulin Ratio 1.2 Random Vancomycin 10.4 HIV 1&2 Antibody Rapid Non-Reactive Quality Measures Quality Measures VTE prophylaxis (SCDs) Assessment & Plan Assessment Current Active Medications: Generic Name Dose Route Start Last Admin Trade Name Freq PRN Reason Stop Dose Admin Acetaminophen 650 mg 05/16/25 10:21 05/20/25 17:26 Acetaminophen 325 Mg Tablet PO 06/15/25 10:20 650 mg Q6H PRN Administration Fever >100.4 or pain Protocol Heparin Sodium (Porcine) 3,300 unit 05/22/25 09:52 05/22/25 10:40 Heparin Sod Inj 1000 Unit/Ml Vial 10 Ml INDWELLCAT 06/05/25 09:51 3,300 unit X1 PRN Administration DIALYSIS Hydromorphone HCl 1 mg 05/23/25 13:49 05/23/25 14:01 Hydromorphone Inj 2 Mg/Ml Vial IVP 05/28/25 13:48 1 mg Q4HR PRN Administration PAIN SCALE 4-10(Mod-Sev Melatonin 3 mg 05/22/25 22:27 05/24/25 22:09 Melatonin 3 Mg Tablet PO 06/22/25 20:59 3 mg HS PRN Administration insomnia Ondansetron HCl 4 mg 05/16/25 10:21 Ondansetron Inj 2 Mg/Ml Inj 2 Ml IVP 06/15/25 10:20 Q6H PRN NAUSEA OR VOMITING Protocol Pantoprazole Sodium 40 mg 05/26/25 09:00 Pantoprazole 40 Mg Tablet PO 06/16/25 08:59 QDAY [facility] Pharmacy Consult 1 each 05/21/25 10:00 Vancomycin Pharmacy To Dose 1 Each Each IV 06/05/25 09:59 QDAY PRN CONSULT Ropinirole HCl 0.25 mg 05/24/25 17:30 05/25/25 14:32 Ropinirole Hcl 0.25 Mg Tablet PO 06/23/25 17:29 0.25 mg TID [facility] Administration Plan Mr. Meade is a 64M with unknown past medical history presents for ground level fall. Pt is a poor historian, history obtained from at bedside. Pt denies midline tenderness, neck or head injury. Pt has a chorea-like repetitive movement at baseline, which the states started a few weeks ago. US Bladder shows a bladder mass with bilateral hydronephrosis. Admitted for CORINA with creatinine of 6.2. Perm cath inserted at right subclavian vein. Cystoscopy shows bleeding from tumor. Decide to not proceed with pelvic lymph node biopsy per IR team recommendation. Neuro recs for tardive dyskinesia, d/c clonazepam 0.5 BID and transition to Ropinirole 0.25mg TID. Bcx with staph epi, d/c ctx and doxy, cont vanc through 06/05 per ID. Plan for transfer to higher level of care for management of bladder tumor. #Bladder mass, likley malignancy #Newly Diagnosed ESRD #acute renal failure 2/2 obstructive uropathy #B/L hydronephrosis Dx - CTAP with BL hydronephrosis and bladder mass Solid nodule noted on bladder wall measuring 2.8 x 1.9 x 1.4cm - US, bladder mass, and R severe hydronephrosis - Nephrology consulted: perm cath at right subclavian, Irrigate viveros if has clot retention, at this time not a good candidate for surgical intervention, repeat kidney US on 05/23 shows severe right hydronephrosis still. - IR recommends to not proceed with pelvic lymph node biopsy due to location and size of lymph node - NM renal scan shows no renal function. 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 - ID consulted appreciate recs: cont IV abx. 06/05 Tx - HD per nephrology recommendation - strict I/O - renal dose medication - Bilateral nephrostomy tube in place. keep due to urology needs - viveros catheter in place, if not draining okay to manually irrigate per urology. - Plan for transfer to higher level of care for management of bladder tumor #GPC bacteremia vs contamination - Staph epi #GPC vs GNR pneumonia Dx - CT chest on 05/19 shows significant bibasilar pneumonia, WBC now wnl - elevated ESR, prolactin, CRP, likely due to poor renal function and tumor mass - 2/2 Bcx on 05/20 grows GPC.- staph epi - Repeat 05/21 Bcx shows no growth at 48H, waiting for final report - ECHO no vegitations, EF 50-55% Tx - d/c Rocephin 1g QD and doxycycline 100mg BID - Continue vancomycin per ID recs, pharmacy to dose. (05/22-06/05) 2 wks #chorea-like movement vs tardive diskinesea #query 2/2 azotemia movements persist despite HD, neuro workup for TD Dx - MRI Brain shows prominent atrophy, otherwise no acute infarct, mass, or midline shift. - Oncology consulted: Tumor markers: CA 19-9 elevated. CEA elevated, PSA negative. - Neuro consulted: clonazepam, ok for anticholinergic meds, valbenazine or deutrabenozine (not available on formulary) Tx - d/c clonazepam 0.5 BID, switch to Ropinirole 0.25mg TID #Anemia of chronic disease Concerns for bleeding at tumor site bladder, - A unit of blood was transfused during dialysis on 05/22, post transfusion h/h 08/29 - Retacrit 10,000unit x1 - daily CBC, if falls below 8, consider blood transfusion - EPO given , iron panel. #Hyperparathyroidism PTH 370.5. Ca 8.6 likely secondary to renal failure - follow up out patient Dispo: cont iv abx for bacteremia, tardive dyskinesia vs chorea movements persist DVT prophylaxis: SCDs GI prophylaxis: Protonix 40 IV Diet: Renal Diet Lines: Peripheral IV, viveros catheter, bilateral nephrostomy tube in place, R IJ perm catheter Code status: Full code Case discussed with my senior resident Dr. Rojas Case discussed with my attending Dr. Joselo Kirk, DO PGY-1
--- NOTE | 2025-05-25 18:00 | PC.NURSE ---
received call from Dr. Castellon checking on patient. Telephone order received to increase pt's Ropinirole to 0.5 mg TID to start tonight 05/25/25 @2200.
--- NOTE | 2025-05-25 23:56 | PD.VPROG1 ---
Telemedicine visit statement This visit was conducted with the use of phonr was obtained on 05/25/25 at 2356. Documentation for date of: 05/25/25 Subjective Subjective Interval history: Patient is in medsur, still with abnormal choreiform movements, restless to the point of not able to rest at night. Virtual exam Vital Signs Temp Pulse Resp BP Pulse Ox O2 Del Method O2 Flow Rate 98 F 103 H 17 103/60 96 Room Air 2 05/25/25 20:00 05/25/25 20:00 05/25/25 20:00 05/25/25 20:00 05/25/25 20:00 05/25/25 20:00 05/23/25 08:00 Objective Labs 05/25/25 05:06 05/25/25 05:06 Labs: Laboratory Results - last 24 hr 05/25/25 05:06 WBC 11.4 H RBC 3.37 L Hgb 10.2 L Hct 30.9 L MCV 92 MCH 30.3 MCHC 33.0 RDW Std Deviation 45.7 H Plt Count 237 Neut % (Auto) 77 Lymph % (Auto) 11 [place] % (Auto) 8 Eos % (Auto) 2 Baso % (Auto) 1 Neut # (Auto) 8.7 H Lymph # (Auto) 1.2 [place] # (Auto) 0.9 H Eos # (Auto) 0.2 Baso # (Auto) 0.1 Immature Gran # (Auto) 0.23 H Absolute Nucleated RBC 0.00 Immature Gran % 2 H Nucleated RBC % 0 Sodium 140 Potassium 3.9 Chloride 103 Carbon Dioxide 25.3 Anion Gap 12 BUN 48 H Creatinine 3.1 H D Estim Creat Clear Calc 22.4 L eGFR 22 L BUN/Creatinine Ratio 15 Glucose 111 H Calculated Osmolality 293 Calcium 8.5 Corrected Calcium 9.0 Phosphorus 3.0 Magnesium 1.9 Total Bilirubin 0.2 L AST 18 ALT 29 Alkaline Phosphatase 101 Total Protein 6.2 Albumin 3.4 Globulin 2.8 Albumin/Globulin Ratio 1.2 Random Vancomycin 10.4 HIV 1&2 Antibody Rapid Non-Reactive Assessment & Plan Problem List (1) Abnormal involuntary movements: Status: Acute Assessment and plan: increased Ropinirole to 0.5 mg tid COnsider doing LP on Tuesday to evaluate further if it persists. (2) CORINA (acute kidney injury): Status: Acute Assessment and plan: on dialysis.
[2025-05-26] VITALS (8 sets, daily range): BP systolic 90–114; BP diastolic 56–79; PULSE 86–104; RESP 16–20; TEMP 36.2–37; O2SAT 96–99; BMI 17.5
--- NOTE | 2025-05-26 01:18 | PC.NURSE ---
Pt stated that he was hungry and he asked for food. RN offered pt a snack (pudding, jello) pt stated that he wanted real food and got upset and said he wanted food and a milkshake. RN explained to pt that kitchen was closed and we had only snacks. Pt stated This is messed up I want food. RN went to ER to grab a sandwich and chips for pt. Pt calmed down after getting the sandwich.
[2025-05-26 06:08] LABS: Basophils # (Auto) 0.1 Thou/mm3 (0.0-0.2); Basophils % (Auto) 1 % (0-2.5); Eosinophils # (Auto) 0.4 Thou/mm3 (0.0-0.5); Eosinophils % (Auto) 2 % (0-10); Hematocrit 29.4 % (41.0-53.0); Hemoglobin 9.4 g/dL (13.5-16.0); Immature Granulocytes Auto 0.68 Thou/mm3 (0.00-0.00); Lymphocytes # (Auto) 1.3 Thou/mm3 (1.0-4.8); Lymphocytes % (Auto) 8 % (10-50); Mean Corpuscular HGB Conc 32.0 g/dl (31.0-37.0); Mean Corpuscular Hemoglobin 29.8 pg (25.0-35.0); Mean Corpuscular Volume 93 fL (80-100); Monocytes # (Auto) 1.3 Thou/mm3 (0.0-0.8); Monocytes % (Auto) 8 % (0-12); Neutrophils # (Auto) 12.5 Thou/mm3 (1.8-7.7); Neutrophils % (Auto) 77 % (37-80); Nucleated Red Blood Cell # 0.00 Thou/mm3 (0.00-0.00); Nucleated Red Blood Cell % 0 /100 WBC (0); Platelet Count 316 Thou/mm3 (140-440); RDW Standard Deviation 46.4 fL (35.1-43.9); Red Blood Count 3.15 Miln/mm3 (4.50-5.90); White Blood Count 16.2 Thou/mm3 (3.8-10.6)
[2025-05-26 06:31] LABS: Alanine Aminotransferase 32 U/L (10-49); Albumin, Serum 3.3 gm/dL (3.4-4.8); Albumin/Globulin Ratio 1.2 (1.2-2.2); Alkaline Phosphatase 119 U/L (46-116); Anion Gap 10 (7-16); Aspartate Amino Transferase 22 U/L (0-34); BUN/Creatinine Ratio 19 Ratio (12-20); Bilirubin,Total 0.2 mg/dL (0.3-1.2); Blood Urea Nitrogen 61 mg/dL (9-23); Calcium 8.4 mg/dL (8.3-10.6); Calcium (Corrected) 9.0 mg/dL (8.5-10.1); Carbon Dioxide 23.8 mMol/L (20.0-31.0); Chloride 105 mMol/L (98-107); Creatinine (Component) 3.2 mg/dL (0.6-1.3); Estimated Creatinine Clearance 21.7 mL/min (>60); Globulin 2.8 gm/dL (2.3-3.5); Glucose 91 mg/dL (74-106); Magnesium 1.6 mg/dL (1.6-2.6); Osmolality,Calculated 294 (275-295); Phosphorous 2.6 mg/dL (2.4-5.1); Potassium 4.0 mMol/L (3.4-5.1); Sodium 139 mMol/L (136-145); Total Protein 6.1 gm/dL (5.7-8.2); Vancomycin,Random 16.5 mcg/mL; eGFR 21 See Note
--- NOTE | 2025-05-26 08:52 | PC.CC ---
Addendum entered by Kvng Valladares RN 05/26/25 19:05: 1902 emailed VICTORIANO Martinez to follow up on outpatient referral once closer to id. Addendum entered by Kvng Valladares RN 05/26/25 19:04: [address] Cross and Dr. Kirk to inform that Dr. Trevino stated pt can follow with him as outpatient, unable to get hold of them or leave message. Addendum entered by Kvng Valladares RN 05/26/25 18:59: 1729 Received call from [facility], spoke to Rama. She stated Dr. Trevino stated pt doesn't need transfer and can follow him as a outpatient. I informed Rama that I was on when peer to peer call was done between Dr. Trevino and Dr. Cross and I am aware about that. Addendum entered by Kvng Valladares RN 05/26/25 14:55: [address] Josue and updated [facility], [facility] and [facility] urologist stated the same thing that pt doesn't need transfer and pt can follow urology as outpatient. Received orders from Dr. Josue to cancel the transfer. Addendum entered by Kvng Valladares RN 05/26/25 14:39: 1434 received call from Aide at [facility] that her urologist Dr. Kelly stated pt doesn't need the transfer and can be followed as outpatient. Therefore, the transfer request is declined. 1347 received call from [facility] urologist Dr. Kelly wants to speak to Dr. Cross for peer to peer. Conference call connected. Dr. Kelly had a detail converstation with Dr. Cross and stated pt doesn't need the transfer and can be followed as outpatient. Addendum entered by Kvng Valladares RN 05/26/25 12:50: 1244 received call from Aide at [facility] for verbal clinicals. Addendum entered by Kvng Valladares RN 05/26/25 12:42: 1242 Received TBA from [facility]. Completed the TBA and faxed back. Addendum entered by Kvng Valladares RN 05/26/25 12:05: 1204 clinicals faxed over to [facility] Ashleigh. Addendum entered by Kvng Valladares RN 05/26/25 12:00: 1154 called [facility] JUANA, spoke to Keyanna and initiated the transfer. She stated to fax the clinicals and the nurse will be a call back for verbal clinicals. Addendum entered by Kvng Valladares RN 05/26/25 11:51: 1151 received call from August with [facility], transfer is declined due to capacity. Addendum entered by Kvng Valladares RN 05/26/25 11:42: 1141 faxed face sheet to [facility]. Addendum entered by Kvng Valladares RN 05/26/25 11:41: 1133 called [facility], spoke to August and initiated the transfer. August stated to fax the face sheet. Addendum entered by Kvng Valladares RN 05/26/25 11:29: 1124 I called and informed Dr. Cross. Addendum entered by Kvng Valladares RN 05/26/25 11:29: 1120 received call from [facility], spoke to Jai. He stated he presented the case to urologist team and the urologist team is saying that pt doesn't need transfer and pt can be seen in an outpatient setting. Patient can either follow [facility] or can follow any urologist. Addendum entered by Kvng Valladares RN 05/26/25 11:01: 1055 Received call from [facility], spoke to Yvtete. She stated she has her urologist Dr. Vasques on the line for peer to peer with Dr. Cross. Conference call connected. Addendum entered by Kvng Valladares RN 05/26/25 09:57: 0946 called [facility], spoke to Jai and initiated the transfer. Addendum entered by Kvng Valladares RN 05/26/25 09:45: 0937 Images pushed over to [facility]. 09 called [facility], spoke to Goyo and initiated the transfer.?Goyo asked to push over the images. Original Note: 0852 clinicals sent to [facility] and [facility].
[2025-05-26] MEDS: Magnesium Sulfate 4 GM Ivpb 4 GM/50 ML BAG IV (08:53)
[2025-05-26] MEDS: VANCOMYCIN/NS 500 MG IVPB 100 ML 120 MG IV (09:06)
[2025-05-26] MEDS: PANTOPRAZOLE 40 MG TABLET PO (09:06)
--- NOTE | 2025-05-26 13:14 | PD.RESPRO ---
Documentation for date of: 05/26/25 Subjective Subjective Interval history: Amarjit Meade is a 62-year-old male with no past medical history presented for mechanical fall at work. States that he fell forward because his lower back has been giving out for the past few months. He has also been having chorea-like, jerky movements for the past few months and is supposed to see neurology but is having insurance issues. Has not seen a physician in many years. Per , patient has been having enuresis for the past few weeks and claims patient is stubborn and does not want to see a physician. Patient's urine is normally green due to vitamin supplements. Patient admits that he does not drink very much water nor does he urinate very much. Denies pain on urination, increase in urinary urgency, frequency or hesitancy, interrupted stream, any history of prostate issues, flank pain, or recent weight loss. Denies fever, chills, shortness of breath or chest pain. Denies family history of any kidney disease or dialysis. 05/23/25: Patient seen and examined at bedside with . Has a very mild headache. [place] bag still bloody. Cr 3.1, BUN 38. Continues to have some word finding difficulty even though choreiform movements have improved. 05/24/25: Patient seen and examined in dialysis. No complaints. [place] bag is less bloody. Social work reports patient will be getting [employer] on Tuesday. Cr 3.6 and BUN 38. Denies chest pain, SOB or fever. 05/25/2025 Marisabel at bedside. Patient continues to have some restlessness, confusion and speech problems. Neurology was consulted. Dr Castellon was called-recommended to continue with ropinirole. She is planning to do possible LP on Tuesday if no improvement. MRI showed no acute stroke. Patient so far received 4 dialysis sessions. Quill [place] form movements improved markedly although his speech problem remains. Marisabel Able to get him insurance. Spoke to Dr. Hernandez-patient seems to have aggressive bladder cancer causing significant hydronephrosis and pain. Right nephrostomy tube not draining any urine. Will try to reposition on Tuesday. Spoke to primary team to start the transfer to higher level of care for cystectomy and ileal conduit. and patient had several questions which were answered to their satisfaction. Time spent today more than 40 minutes. 05/26/2025: Patient seen and examined at bedside with . Reports difficulty sleeping due to restlesseness in which Dr. Castellon to 0.5 mg TID and to consider doing LP on Tuesday to evaluate further if persists. Social work was able to get him insurance. Rt nephrostomy tube still not draining urine and plan to reposition Tuesday. BUN 61 and Cr 3.1. Exam Vital Signs Temp Pulse Resp BP Pulse Ox O2 Del Method O2 Flow Rate 97.6 F 91 16 109/67 98 Room Air 2 05/26/25 11:59 05/26/25 11:59 05/26/25 11:59 05/26/25 11:59 05/26/25 11:59 05/26/25 11:59 05/23/25 08:00 Narrative Exam GENERAL APPEARANCE: Patient seems to have lost weight. Temporal wasting noted, appears older than stated age NECK: Neck supple, no JVD or bruit CARDIOVASCULAR: Heart regular, no murmurs LUNGS/CHEST: Chest clear to auscultation. No rales, rhonchi, wheezing ABDOMEN: Soft, mild discomfort noted in the lower abdomen, hard bladder. Normal bowel sounds. EXTREMITIES: No edema, clubbing or cyanosis. SKIN: Skin exam normal without any rashes. IJ dialysis catheter noted NEUROLOGICAL : Able to move his extremities. Noted speech impairment. Objective Labs 05/26/25 04:45 05/26/25 04:45 Labs: Laboratory Results - last 24 hr 05/25/25 05/26/25 05:06 04:45 WBC 16.2 H D RBC 3.15 L Hgb 9.4 L Hct 29.4 L MCV 93 MCH 29.8 MCHC 32.0 RDW Std Deviation 46.4 H Plt Count 316 D Neut % (Auto) 77 Lymph % (Auto) 8 L [place] % (Auto) 8 Eos % (Auto) 2 Baso % (Auto) 1 Neut # (Auto) 12.5 H Lymph # (Auto) 1.3 [place] # (Auto) 1.3 H Eos # (Auto) 0.4 Baso # (Auto) 0.1 Immature Gran # (Auto) 0.68 H Absolute Nucleated RBC 0.00 Immature Gran % 4 H Nucleated RBC % 0 Sodium 139 Potassium 4.0 Chloride 105 Carbon Dioxide 23.8 Anion Gap 10 BUN 61 H Creatinine 3.2 H Estim Creat Clear Calc 21.7 L eGFR 21 L BUN/Creatinine Ratio 19 Glucose 91 Calculated Osmolality 294 Calcium 8.4 Corrected Calcium 9.0 Phosphorus 2.6 Magnesium 1.6 Total Bilirubin 0.2 L AST 22 ALT 32 Alkaline Phosphatase 119 H Total Protein 6.1 Albumin 3.3 L Globulin 2.8 Albumin/Globulin Ratio 1.2 Random Vancomycin 16.5 HIV 1&2 Antibody Rapid Non-Reactive Quality Measures Quality Measures VTE prophylaxis (SCDs) Assessment & Plan Assessment Current Active Medications: Generic Name Dose Route Start Last Admin Trade Name Freq PRN Reason Stop Dose Admin Acetaminophen 650 mg 05/16/25 10:21 05/20/25 17:26 Acetaminophen 325 Mg Tablet PO 06/15/25 10:20 650 mg Q6H PRN Administration Fever >100.4 or pain Protocol Heparin Sodium (Porcine) 3,300 unit 05/22/25 09:52 05/22/25 10:40 Heparin Sod Inj 1000 Unit/Ml Vial 10 Ml INDWELLCAT 06/05/25 09:51 3,300 unit X1 PRN Administration DIALYSIS Hydromorphone HCl 1 mg 05/23/25 13:49 05/23/25 14:01 Hydromorphone Inj 2 Mg/Ml Vial IVP 05/28/25 13:48 1 mg Q4HR PRN Administration PAIN SCALE 4-10(Mod-Sev Melatonin 3 mg 05/22/25 22:27 05/24/25 22:09 Melatonin 3 Mg Tablet PO 06/22/25 20:59 3 mg HS PRN Administration insomnia Ondansetron HCl 4 mg 05/16/25 10:21 Ondansetron Inj 2 Mg/Ml Inj 2 Ml IVP 06/15/25 10:20 Q6H PRN NAUSEA OR VOMITING Protocol Pantoprazole Sodium 40 mg 05/26/25 09:00 05/26/25 09:06 Pantoprazole 40 Mg Tablet PO 06/16/25 08:59 40 mg QDAY [facility] Administration Pharmacy Consult 1 each 05/21/25 10:00 Vancomycin Pharmacy To Dose 1 Each Each IV 06/05/25 09:59 QDAY PRN CONSULT Ropinirole HCl 0.5 mg 05/25/25 22:00 05/26/25 05:56 Ropinirole Hcl 0.25 Mg Tablet PO 06/24/25 21:59 0.5 mg TID SHADY Administration Plan Amarjit Meade is a 62-year-old male with no past medical history presented for mechanical fall at work due to chorea-like movements, found to have Cr 6.2 and BUN 92 with bladder mass and advanced hydronephrosis. #Obstructive uropathy 2/2 bladder mass causing #Bilateral hydronephrosis s/p b/l nephrostomy tubes 05/17 #CORINA Patient has no history of kidney disease or any recent lab values to compare. ~30 pack year, quit 04/2025. Reports new enuresis for the past few weeks and jerky movements for a few months, latter ddx likely uremic origin with improvement in movement post dialysis. Ddx includes obstrutive uropathy from possible bladder cancer causing CORINA vs CKD, likely ESRD as NM renal scan showed no renal fx with minimal flow to Lt kidney and reduced flow to Rt kidney CT abd pelvis showed advanced b/l hydronephrosis, extensive abdominal and pelvic lymphadenopathy, distended urinary bladder with marked irregular bladder wall thickening, enzo posteriorly most consistent with bladder cancer. MRI brain showed no mets Lymph node biopsies not able to be done. Nephrostomy tubes: b/l placed 05/17, L fell out 05/19, L replaced 05/20, R replaced 05/21 Perm cath inserted 05/21 Received HD 05/18, 05/19, 05/20, 05/22, 05/24 Cystoscopy 05/22 showed large prostate and very large bladder tumor occupying both ureteral orifices, tumor resected with bleeding stopped with fulguration, biopsy taken and sent to [facility] Renal US showed severe right hydronephrosis, L hydronephrosis much improved. Plan: -Patient needs transfer to higher level of care -Plan for HD tomorrow #Chorea movements-better #Normocytic anemia #Hyperparathyroidism -Management per primary team. Plan discussed with nephrology attending Dr. Esther Matamoros, DO Internal Medicine PGY-1 Attending Provider Attestation/Addendum Patient seen and examined with resident physician Dr. Matamoros. Note reviewed, agree with findings and recommendations. Marisabel at bedside. Patient more alert and awake today. Admitted with CORINA secondary to obstructive uropathy. Patient had cystoscopy-showed large bladder tumor. Biopsy was taken. Spoke to Dr. Hernandez-patient needs to go to tertiary care center for large aggressive bladder tumor. television maintenance worker to help him with transfer.. Outpatient dialysis also should be arranged. Spoke to primary team. Despite bilateral nephrostomy tubes-repeat renal ultrasound showed a large right hydronephrosis. Will plan for right nephrostomy tube exchange on Tuesday. Probably it is not working. Plan of care discussed with primary team.
--- NOTE | 2025-05-26 17:50 | ESPR_ITS ---
<Statement entered by Lachelle Josue MD - 05/31/25 07:33> I reviewed above note and agree with findings and plans. I have also personally examined the patient with medicine team and went over assessment and plan with medical team including international account executive and resident physician. <Statement entered by Figueroa Cross MD - 05/26/25 19:02> Patient seen and examined at bedside. I discussed and supervised with the international account executive physician who took care of this patient. I personally saw and examined the patient. I agree with most of the assessment and plan. Patient transfer was refused at three separate locations. Patient will likely need referral to outpatient clinic for further workup. Will discuss case with urology tomorrow. Biopsy results pending. Patient remains on HD as needed per nephrology. Plan of care discussed with attending Dr. Josue. Figueroa Cross MD PGY-2 Documentation for date of: 05/26/25 Subjective Subjective Interval history: No overnight events. Evaluated at bedside. Pending transfer to higher level of care. Pending urology consult for alternative opinions on bladder tumor management. Neurology increase Ropinirole 0.25mg to 0.5mg TID. Plan for HD tmr Exam Vital Signs Temp Pulse Resp BP Pulse Ox O2 Del Method O2 Flow Rate 97.2 F 86 16 112/66 97 Room Air 2 05/26/25 16:00 05/26/25 16:00 05/26/25 16:00 05/26/25 16:00 05/26/25 16:00 05/26/25 16:00 05/23/25 08:00 Narrative Exam General: malnourished, frail in no distress. Oriented x 3. Afebrile. Skin: No rash, unusual bruising or prominent lesions Head: Normocephalic, atraumatic, no visible or palpable masses, depressions, or scaring. Eyes: conjunctiva clear, sclera non-icteric, no exudates or hemorrhages. Near sighted. Heart: Regular rate and rhythm Lungs: Clear to auscultation. No rales, wheeze, or rhonchi Abdomen: No tenderness, guarding or rigidity. Back: Right nephrostomy tube in place. Left nephrostomy tube in place. Extremities: No amputations or deformities, cyanosis, edema or varicosities, peripheral pulses intact. Perm Hemodialysis catheter in place at right subclavian jugular vein. Neurologic: Alert and oriented x 3, chorea like movements decreased. Unclear speech at baseline due to missing of upper dental plate. Objective Labs 05/30/25 04:37 05/30/25 04:37 Labs: Laboratory Results - last 24 hr 05/26/25 04:45 WBC 16.2 H D RBC 3.15 L Hgb 9.4 L Hct 29.4 L MCV 93 MCH 29.8 MCHC 32.0 RDW Std Deviation 46.4 H Plt Count 316 D Neut % (Auto) 77 Lymph % (Auto) 8 L [place] % (Auto) 8 Eos % (Auto) 2 Baso % (Auto) 1 Neut # (Auto) 12.5 H Lymph # (Auto) 1.3 [place] # (Auto) 1.3 H Eos # (Auto) 0.4 Baso # (Auto) 0.1 Immature Gran # (Auto) 0.68 H Absolute Nucleated RBC 0.00 Immature Gran % 4 H Nucleated RBC % 0 Sodium 139 Potassium 4.0 Chloride 105 Carbon Dioxide 23.8 Anion Gap 10 BUN 61 H Creatinine 3.2 H Estim Creat Clear Calc 21.7 L eGFR 21 L BUN/Creatinine Ratio 19 Glucose 91 Calculated Osmolality 294 Calcium 8.4 Corrected Calcium 9.0 Phosphorus 2.6 Magnesium 1.6 Total Bilirubin 0.2 L AST 22 ALT 32 Alkaline Phosphatase 119 H Total Protein 6.1 Albumin 3.3 L Globulin 2.8 Albumin/Globulin Ratio 1.2 Random Vancomycin 16.5 Quality Measures Quality Measures VTE prophylaxis (SCDs) Assessment & Plan Assessment Current Active Medications: Generic Name Dose Route Start Last Admin Trade Name Freq PRN Reason Stop Dose Admin Acetaminophen 650 mg 05/16/25 10:21 05/20/25 17:26 Acetaminophen 325 Mg Tablet PO 06/15/25 10:20 650 mg Q6H PRN Administration Fever >100.4 or pain Protocol Heparin Sodium (Porcine) 3,300 unit 05/22/25 09:52 05/22/25 10:40 Heparin Sod Inj 1000 Unit/Ml Vial 10 Ml INDWELLCAT 06/05/25 09:51 3,300 unit X1 PRN Administration DIALYSIS Hydromorphone HCl 1 mg 05/23/25 13:49 05/23/25 14:01 Hydromorphone Inj 2 Mg/Ml Vial IVP 05/28/25 13:48 1 mg Q4HR PRN Administration PAIN SCALE 4-10(Mod-Sev Melatonin 3 mg 05/22/25 22:27 05/24/25 22:09 Melatonin 3 Mg Tablet PO 06/22/25 20:59 3 mg HS PRN Administration insomnia Ondansetron HCl 4 mg 05/16/25 10:21 Ondansetron Inj 2 Mg/Ml Inj 2 Ml IVP 06/15/25 10:20 Q6H PRN NAUSEA OR VOMITING Protocol Pantoprazole Sodium 40 mg 05/26/25 09:00 05/26/25 09:06 Pantoprazole 40 Mg Tablet PO 06/16/25 08:59 40 mg QDAY SHADY Administration Pharmacy Consult 1 each 05/21/25 10:00 Vancomycin Pharmacy To Dose 1 Each Each IV 06/05/25 09:59 QDAY PRN CONSULT Ropinirole HCl 0.5 mg 05/25/25 22:00 05/26/25 14:50 Ropinirole Hcl 0.25 Mg Tablet PO 06/24/25 21:59 0.5 mg TID SHADY Administration Plan Mr. Meade is a 64M with unknown past medical history presents for ground level fall. Pt is a poor historian, history obtained from at bedside. Pt denies midline tenderness, neck or head injury. Pt has a chorea-like repetitive movement at baseline, which the states started a few weeks ago. US Bladder shows a bladder mass with bilateral hydronephrosis. Admitted for CORINA with creatinine of 6.2. Perm cath inserted at right subclavian vein. Cystoscopy shows bleeding from tumor. Decide to not proceed with pelvic lymph node biopsy per IR team recommendation. Neuro recs for tardive dyskinesia, increase Ropinirole from 0.25mg to 0.5mg TID. Bcx with staph epi, cont vanc through 06/05 per ID. Plan for transfer to higher level of care for management of bladder tumor. #Bladder mass, likley malignancy #Newly Diagnosed ESRD #acute renal failure 2/2 obstructive uropathy #B/L hydronephrosis Dx - CTAP with BL hydronephrosis and bladder mass Solid nodule noted on bladder wall measuring 2.8 x 1.9 x 1.4cm - US, bladder mass, and R severe hydronephrosis - Nephrology consulted: perm cath at right subclavian, Irrigate viveros if has clot retention, at this time not a good candidate for surgical intervention, repeat kidney US on 05/23 shows severe right hydronephrosis still. - IR recommends to not proceed with pelvic lymph node biopsy due to location and size of lymph node - NM renal scan shows no renal function. 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 - ID consulted appreciate recs: cont IV abx. 06/05 Tx - HD per nephrology recommendation - strict I/O - renal dose medication - Bilateral nephrostomy tube in place. keep due to urology needs - viveros catheter in place, if not draining okay to manually irrigate per urology. - Plan for transfer to higher level of care for management of bladder tumor #GPC bacteremia vs contamination - Staph epi #GPC vs GNR pneumonia Dx - CT chest on 05/19 shows significant bibasilar pneumonia, WBC now wnl - elevated ESR, prolactin, CRP, likely due to poor renal function and tumor mass - 2/2 Bcx on 05/20 grows GPC.- staph epi - Repeat 05/21 Bcx shows no growth at 48H, waiting for final report - ECHO no vegitations, EF 50-55% Tx - d/c Rocephin 1g QD and doxycycline 100mg BID - Continue vancomycin per ID recs, pharmacy to dose. (05/22-06/05) 2 wks #chorea-like movement vs tardive diskinesea #query 2/2 azotemia movements persist despite HD, neuro workup for TD Dx - MRI Brain shows prominent atrophy, otherwise no acute infarct, mass, or midline shift. - Oncology consulted: Tumor markers: CA 19-9 elevated. CEA elevated, PSA negative. - Neuro consulted: clonazepam, ok for anticholinergic meds, valbenazine or deutrabenozine (not available on formulary) Tx - Increase Ropinirole 0.25mg to 0.5mg TID #Anemia of chronic disease Concerns for bleeding at tumor site bladder, - A unit of blood was transfused during dialysis on 05/22, post transfusion h/h 10/30 - Retacrit 10,000unit x1 - daily CBC, if falls below 8, consider blood transfusion - EPO given , iron panel. #Hyperparathyroidism PTH 370.5. Ca 8.6 likely secondary to renal failure - follow up out patient Dispo: cont iv abx for bacteremia, tardive dyskinesia vs chorea movements persist DVT prophylaxis: SCDs GI prophylaxis: Protonix 40 IV Diet: Renal Diet Lines: Peripheral IV, viveros catheter, bilateral nephrostomy tube in place, R IJ perm catheter Code status: Full code Case discussed with my senior resident Dr. Cross Case discussed with my attending Dr. Joselo Landers Reagan, DO PGY-1
--- NOTE | 2025-05-26 19:24 | VVPN_ITS ---
Telemedicine visit statement This visit was conducted with the use of phone was obtained on 05/26/25 at 1924. Documentation for date of: 05/26/25 Subjective Subjective Interval history: Patient is in medsurg, still with abnormal choreiform movements and continues to be restless. Virtual exam Vital Signs Temp Pulse Resp BP Pulse Ox O2 Del Method O2 Flow Rate 97.2 F 86 16 112/66 97 Room Air 2 05/26/25 16:00 05/26/25 16:00 05/26/25 16:00 05/26/25 16:00 05/26/25 16:00 05/26/25 16:00 05/23/25 08:00 Objective Labs 05/26/25 04:45 05/26/25 04:45 Labs: Laboratory Results - last 24 hr 05/26/25 04:45 WBC 16.2 H D RBC 3.15 L Hgb 9.4 L Hct 29.4 L MCV 93 MCH 29.8 MCHC 32.0 RDW Std Deviation 46.4 H Plt Count 316 D Neut % (Auto) 77 Lymph % (Auto) 8 L [place] % (Auto) 8 Eos % (Auto) 2 Baso % (Auto) 1 Neut # (Auto) 12.5 H Lymph # (Auto) 1.3 [place] # (Auto) 1.3 H Eos # (Auto) 0.4 Baso # (Auto) 0.1 Immature Gran # (Auto) 0.68 H Absolute Nucleated RBC 0.00 Immature Gran % 4 H Nucleated RBC % 0 Sodium 139 Potassium 4.0 Chloride 105 Carbon Dioxide 23.8 Anion Gap 10 BUN 61 H Creatinine 3.2 H Estim Creat Clear Calc 21.7 L eGFR 21 L BUN/Creatinine Ratio 19 Glucose 91 Calculated Osmolality 294 Calcium 8.4 Corrected Calcium 9.0 Phosphorus 2.6 Magnesium 1.6 Total Bilirubin 0.2 L AST 22 ALT 32 Alkaline Phosphatase 119 H Total Protein 6.1 Albumin 3.3 L Globulin 2.8 Albumin/Globulin Ratio 1.2 Random Vancomycin 16.5 Assessment & Plan Problem List (1) Abnormal involuntary movements: Status: Acute Assessment and plan: unchanged despite having increased Ropinirole to 0.5 mg tid Consider LP on tuesday to send CSF for AIE/Paraneoplastic process. (2) CORINA (acute kidney injury): Status: Acute Assessment and plan: sec to obstructive uropathy, recently started on dialysis s/p nephrostomy tubes placement. pending transfer to higher level of care.
[2025-05-27] VITALS (29 sets, daily range): BP systolic 95–131; BP diastolic 55–74; PULSE 75–100; RESP 17–21; TEMP 36.1–36.8; O2SAT 94–100
--- NOTE | 2025-05-27 07:06 | PD.RESPRO ---
Documentation for date of: 05/27/25 Subjective Subjective Interval history: Patient evaluated at bedside. He reports that his restlessness and abnormal movements have been stable particularly in his legs. He reports that he has an appropriate appetite, reports no new symptoms. Exam Vital Signs Temp Pulse Resp BP Pulse Ox O2 Del Method O2 Flow Rate 97.1 F 76 18 109/69 96 Room Air 2 05/27/25 04:00 05/27/25 04:00 05/27/25 04:00 05/27/25 04:00 05/27/25 04:00 05/27/25 04:00 05/23/25 08:00 Narrative Exam General: No acute distress, well nourished Eye: PERRL, EOMI, normal conjunctiva, no scleral icterus HENT: Normocephalic, atraumatic, hearing intact to conversation at normal volume, moist oral mucosa. Patient does not have upper teeth Neck: Supple, non-tender, no JVD, no lymphadenopathy Lungs: Non-labored respirations, symmetric chest rise Heart: Peripheral pulses intact bilaterally Abdomen: Soft, non-tender, non-distended Musculoskeletal: Normal range of motion and strength Skin: Skin is warm, dry, no rashes or lesions. Psychiatric: Cooperative, appropriate mood and affect Neurologic: Mental status: Orientation: AOx3 Communication: Patient is cooperative and can follow simple instructions Language: Speech somewhat difficult to understand as patient's upper teeth removed previously, normal rate and volume, comprehension intact, repetition intact, naming intact. No word finding difficulties appreciated on exam Cranial nerves: CN II: Visual esquivel intact CN III: Pupils equal, round, and reactive to light CN III, IV, : No gaze deviation, no nystagmus Horizontal pursuit: intact Vertical pursuit: intact Ptosis: none CN V: Facial sensation to light touch intact bilaterally at the forehead, cheeks, and jaw line CN VII: Face symmetric, no facial droop appreciated CN VIII: Able to hear and respond to conversation at normal volume, intact to finger rub CN IX, X: Palate elevation symmetric, uvula midline CN XI: Head turn and shoulder shrug strong, symmetric bilaterally CN XII: Normal tongue protrusion without deviation, no fasciculations Motor: Normal tone Generalized muscle atrophy appreciated Abnormal movements appreciated in in all extremities, most prominent in bilateral feet and mouth (subjectively associated with feeling of restlessness) Muscle strength: Shoulder abduction: R 5/5 L 5/5 Elbow flexion: R 5/5 L 5/5 Elbow extension: R 5/5 L 5/5 Hip flexion: R 5/5 L 5/5 Hip extension: R 5/5 L 5/5 Knee flexion: R 5/5 L 5/5 Knee extension: R 5/5 L 5/5 Sensory: RUE: Light touch intact LUE: Light touch intact RLE: Light touch intact LLE: Light touch intact Reflexes: Biceps (C5-6): R 2+ L 2+ Brachioradialis (C5-6): R 2+ L 2+ Triceps (C7-8): R 2+ L 2+ Patellae (L3-4): R 2+ L 2+ Achilles (S1-2):R 2+ L 2+ Objective Labs 05/27/25 06:14 05/27/25 06:14 Quality Measures Quality Measures VTE prophylaxis (SCDs) Assessment & Plan Assessment Current Active Medications: Generic Name Dose Route Start Last Admin Trade Name Freq PRN Reason Stop Dose Admin Acetaminophen 650 mg 05/16/25 10:21 05/20/25 17:26 Acetaminophen 325 Mg Tablet PO 06/15/25 10:20 650 mg Q6H PRN Administration Fever >100.4 or pain Protocol Heparin Sodium (Porcine) 3,300 unit 05/22/25 09:52 05/22/25 10:40 Heparin Sod Inj 1000 Unit/Ml Vial 10 Ml INDWELLCAT 06/05/25 09:51 3,300 unit X1 PRN Administration DIALYSIS Hydromorphone HCl 1 mg 05/23/25 13:49 05/23/25 14:01 Hydromorphone Inj 2 Mg/Ml Vial IVP 05/28/25 13:48 1 mg Q4HR PRN Administration PAIN SCALE 4-10(Mod-Sev Melatonin 3 mg 05/22/25 22:27 05/24/25 22:09 Melatonin 3 Mg Tablet PO 06/22/25 20:59 3 mg HS PRN Administration insomnia Ondansetron HCl 4 mg 05/16/25 10:21 Ondansetron Inj 2 Mg/Ml Inj 2 Ml IVP 06/15/25 10:20 Q6H PRN NAUSEA OR VOMITING Protocol Pantoprazole Sodium 40 mg 05/26/25 09:00 05/26/25 09:06 Pantoprazole 40 Mg Tablet PO 06/16/25 08:59 40 mg QDAY SHADY Administration Pharmacy Consult 1 each 05/21/25 10:00 Vancomycin Pharmacy To Dose 1 Each Each IV 06/05/25 09:59 QDAY PRN CONSULT Ropinirole HCl 0.5 mg 05/25/25 22:00 05/27/25 05:51 Ropinirole Hcl 0.25 Mg Tablet PO 06/24/25 21:59 0.5 mg TID SHADY Administration Plan # Abnormal movements, present on admission # Word-finding difficulty, present on admission # Previous falls Abnormal movements improved after nephrostomy tube placement and hemodialysis. Patient comprehension, repetition, naming intact. No aphasia appreciated on exam. No focal neuro deficit appreciated Pt denies hx of psychiatric medications No symptom improvement with clonazepam trial, Ropinirol 0.5 mg TID Valbenazine/deutetrabenazine nonformulary/not available in this hospital MRI brain w/o 05/20: no acute hemorrhage. Moderate chronic microvascular white matter changes. Prominent atrophy. No focal metastases. TTE 05/23: LVEF 50-55%, no vegetations DDX: tardive dyskinesia, akathisia, azotemia, infection, paraneoplastic, restless leg syndrome, Michael's disease Plan: - Pending serum copper, ceruloplasmin, urinary copper - CSF assess for for cell count and differential, glucose, protein, autoimmune encephalitis/paraneoplastic process (NMDA receptor Ab, LGI1 Ab, anti-Hu Ab, anti-Yo Ab) (VDRL, WNV, cocci, HSV) #Newly Diagnosed ESRD #CORINA intrarenal vs Post obstructive uropathy #B/L hydronephrosis #Bladder mass #Pneumonia #CAUTI vs Catheter-related bloodstream infection #2/2 BCx GPC #Anemia of chronic disease #Hyperparathyroidism Plan: - Management per primary - Pending transfer to higher level of care - transfer refused at 3 separate locations, will likely need outpatient clinic followup Plan discussed with Dr. Cande Dyson, PGY1 Attending Provider Attestation/Addendum Patient was seen and examined at the bedside and I agreed with resident's findings, assessment and plan of care. Patient underwent LP today as the abnormal movements persists even after the increase in Requip. Sent the fluid for analysis including AIE and paraneoplatic panel.
[2025-05-27 07:11] LABS: Basophils # (Auto) 0.1 Thou/mm3 (0.0-0.2); Basophils % (Auto) 1 % (0-2.5); Eosinophils # (Auto) 0.3 Thou/mm3 (0.0-0.5); Eosinophils % (Auto) 2 % (0-10); Hematocrit 29.9 % (41.0-53.0); Hemoglobin 9.5 g/dL (13.5-16.0); Immature Granulocytes Auto 0.63 Thou/mm3 (0.00-0.00); Lymphocytes # (Auto) 1.2 Thou/mm3 (1.0-4.8); Lymphocytes % (Auto) 8 % (10-50); Mean Corpuscular HGB Conc 31.8 g/dl (31.0-37.0); Mean Corpuscular Hemoglobin 30.0 pg (25.0-35.0); Mean Corpuscular Volume 94 fL (80-100); Monocytes # (Auto) 0.9 Thou/mm3 (0.0-0.8); Monocytes % (Auto) 6 % (0-12); Neutrophils # (Auto) 11.1 Thou/mm3 (1.8-7.7); Neutrophils % (Auto) 78 % (37-80); Nucleated Red Blood Cell # 0.00 Thou/mm3 (0.00-0.00); Nucleated Red Blood Cell % 0 /100 WBC (0); Platelet Count 337 Thou/mm3 (140-440); RDW Standard Deviation 46.0 fL (35.1-43.9); Red Blood Count 3.17 Miln/mm3 (4.50-5.90); White Blood Count 14.1 Thou/mm3 (3.8-10.6)
[2025-05-27 07:41] LABS: Alanine Aminotransferase 31 U/L (10-49); Albumin, Serum 3.4 gm/dL (3.4-4.8); Albumin/Globulin Ratio 1.2 (1.2-2.2); Alkaline Phosphatase 106 U/L (46-116); Anion Gap 11 (7-16); Aspartate Amino Transferase 18 U/L (0-34); BUN/Creatinine Ratio 23 Ratio (12-20); Bilirubin,Total 0.3 mg/dL (0.3-1.2); Blood Urea Nitrogen 77 mg/dL (9-23); Calcium 8.5 mg/dL (8.3-10.6); Calcium (Corrected) 9.0 mg/dL (8.5-10.1); Carbon Dioxide 26.0 mMol/L (20.0-31.0); Chloride 101 mMol/L (98-107); Creatinine (Component) 3.3 mg/dL (0.6-1.3); Estimated Creatinine Clearance 21.0 mL/min (>60); Globulin 2.9 gm/dL (2.3-3.5); Glucose 101 mg/dL (74-106); Magnesium 2.0 mg/dL (1.6-2.6); Osmolality,Calculated 298 (275-295); Phosphorous 3.4 mg/dL (2.4-5.1); Potassium 4.3 mMol/L (3.4-5.1); Sodium 138 mMol/L (136-145); Total Protein 6.3 gm/dL (5.7-8.2); Vancomycin,Random 15.2 mcg/mL; eGFR 20 See Note
--- NOTE | 2025-05-27 08:00 | PC.NURSE ---
Patient taken to dialysis at this time. Patient alert and oriented, denies pain or any discomfort.
--- NOTE | 2025-05-27 08:00 | XR_ITS ---
Examination: Right percutaneous nephrostomy tube placement Ultrasound-guided renal access right renal collecting system Fluoroscopy AP abdomen single view Nephrostogram Date and time: May 27, 2025, 1313 hours INDICATIONS: Right hydronephrosis, patient's right nephrostomy tube is not functioning TECHNIQUE AND FINDINGS: Informed consent provided. Timeout performed. Skin prepped over the right flank and sterile drape applied maximum sterile barrier technique hand hygiene ultrasound sterile technique Ultrasound utilized secondary Posterior confirm dilated right renal collecting system Utilizing ultrasonographic guidance successful 21-gauge needle puncture into the right renal collecting system Ultrasound images recorded and stored 0.18 wire guide placed through the needle into the dilated renal collecting system, followed by dilator is and a 10 [place] 25 cm nephrostomy tube Hand injection 10 cc Cystografin demonstrates satisfactory position of the nephrostomy tube Estimated blood loss 2 cc IMPRESSION: Successful right percutaneous nephrostomy tube placement Fluoroscopy 1 minute radiation dose 4.66 milligray 1 spot fluoroscopic abdomen films
--- NOTE | 2025-05-27 09:17 | PD.IDPROG ---
Subjective Subjective Interval history: no note from resident noted. rx plan unchanged from prior notes you can shorten rx to 10d if line changed out as was reportedly done so rx from 05/22 thru 05/31 Exam Vital Signs Temp Pulse Resp BP Pulse Ox O2 Del Method O2 Flow Rate 97.3 F 76 18 114/68 96 Room Air 2 05/27/25 08:10 05/27/25 09:15 05/27/25 08:10 05/27/25 09:15 05/27/25 08:10 05/27/25 04:00 05/23/25 08:00 Narrative Exam ok to shorten rx to 10d if line changed out Objective - Internal Medicine Labs 05/27/25 06:14 05/27/25 06:14 Labs: Laboratory Results - last 24 hr 05/27/25 06:14 WBC 14.1 H RBC 3.17 L Hgb 9.5 L Hct 29.9 L MCV 94 MCH 30.0 MCHC 31.8 RDW Std Deviation 46.0 H Plt Count 337 Neut % (Auto) 78 Lymph % (Auto) 8 L [place] % (Auto) 6 Eos % (Auto) 2 Baso % (Auto) 1 Neut # (Auto) 11.1 H Lymph # (Auto) 1.2 [place] # (Auto) 0.9 H Eos # (Auto) 0.3 Baso # (Auto) 0.1 Immature Gran # (Auto) 0.63 H Absolute Nucleated RBC 0.00 Immature Gran % 5 H Nucleated RBC % 0 Sodium 138 Potassium 4.3 Chloride 101 Carbon Dioxide 26.0 Anion Gap 11 BUN 77 H Creatinine 3.3 H Estim Creat Clear Calc 21.0 L eGFR 20 L BUN/Creatinine Ratio 23 H Glucose 101 Calculated Osmolality 298 H Calcium 8.5 Corrected Calcium 9.0 Phosphorus 3.4 Magnesium 2.0 Total Bilirubin 0.3 AST 18 ALT 31 Alkaline Phosphatase 106 Total Protein 6.3 Albumin 3.4 Globulin 2.9 Albumin/Globulin Ratio 1.2 Random Vancomycin 15.2 Assessment & Plan A&P Narrative attending ambulatory care bacteremia with at most low grade temps in an hd pt ckd 5 on hd, new mr/dd rt hydro, newly found, creat not improved with nephrostomy tube, so its value is per others. may have urothelial cancer awaiting path from bx. since bc cleared relatively rapidly, neg at > 48h from 05/21 , so rx can be with hd thru 05/31 if line changed out may have to f/u with primary on path as that is still pendingmake hector that path has a specimen but delays are common these days Time Spent With Patient Time: Total time spent is greater than 50% in coordination of care (as documented) at patient's floor/unit and/or counseling patient:
--- NOTE | 2025-05-27 09:23 | PD.ADDPROG ---
Addendum Progress Note Addendum Date of report being addended: 05/27/25 Narrative: pe benign but limited, will see again prn
--- NOTE | 2025-05-27 10:05 | PC.SS ---
Addendum entered by Michelle Zafar 05/27/25 13:04: SS follow up note; SS contacted Arcelia the financial counselor in regards to patient's medical being active, Arcelia reported that she has not received an email stating patient's insurance is active. Arcelia informed SS that the [employer] worker was off today and tomorrow, however will attempt to email someone else that could help with patient's case. SS will stand by for further needs. Original Note: SS rounding note; Patient is having a Lumbar puncture today. Patient is pending medi-miguel to be established. Patient will discharge home when medically cleared.
--- NOTE | 2025-05-27 10:34 | ESPR_ITS ---
Documentation for date of: 05/27/25 Subjective Subjective Interval history: Amarjit Meade is a 62-year-old male with no past medical history presented for mechanical fall at work. States that he fell forward because his lower back has been giving out for the past few months. He has also been having chorea-like, jerky movements for the past few months and is supposed to see neurology but is having insurance issues. Has not seen a physician in many years. Per , patient has been having enuresis for the past few weeks and claims patient is stubborn and does not want to see a physician. Patient's urine is normally green due to vitamin supplements. Patient admits that he does not drink very much water nor does he urinate very much. Denies pain on urination, increase in urinary urgency, frequency or hesitancy, interrupted stream, any history of prostate issues, flank pain, or recent weight loss. Denies fever, chills, shortness of breath or chest pain. Denies family history of any kidney disease or dialysis. 05/23/25: Patient seen and examined at bedside with . Has a very mild headache. Araiza bag still bloody. Cr 3.1, BUN 38. Continues to have some word finding difficulty even though choreiform movements have improved. 05/24/25: Patient seen and examined in dialysis. No complaints. Araiza bag is less bloody. Social work reports patient will be getting Memonic on Tuesday. Cr 3.6 and BUN 38. Denies chest pain, SOB or fever. 05/25/2025 Marisabel at bedside. Patient continues to have some restlessness, confusion and speech problems. Neurology was consulted. Dr Castellon was called-recommended to continue with ropinirole. She is planning to do possible LP on Tuesday if no improvement. MRI showed no acute stroke. Patient so far received 4 dialysis sessions. 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 Marisabel Able to get him insurance. Spoke to Dr. Hernandez-patient seems to have aggressive bladder cancer causing significant hydronephrosis and pain. Right nephrostomy tube not draining any urine. Will try to reposition on Tuesday. Spoke to primary team to start the transfer to higher level of care for cystectomy and ileal conduit. and patient had several questions which were answered to their satisfaction. Time spent today more than 40 minutes. 05/26/2025: Patient seen and examined at bedside with . Reports difficulty sleeping due to restlesseness in which Dr. Castellon to 0.5 mg TID and to consider doing LP on Tuesday to evaluate further if persists. Social work was able to get him insurance. Rt nephrostomy tube still not draining urine and plan to reposition Tuesday. BUN 61 and Cr 3.1. 05/27/2025: Patient seen and examined in dialysis. No new complaints and reports tolerating dialysis well. Plan for Rt nephrostomy tube replacement. Lt nephrostomy draining clear urine. Araiza bag bloody, however less than yesterday. BUN 77 and Cr 3.3. Exam Vital Signs Temp Pulse Resp BP Pulse Ox O2 Del Method O2 Flow Rate 97.3 F 83 18 101/70 96 Room Air 2 05/27/25 08:10 05/27/25 10:30 05/27/25 08:10 05/27/25 10:30 05/27/25 08:10 05/27/25 04:00 05/23/25 08:00 Narrative Exam GENERAL APPEARANCE: Temporal wasting noted, appears older than stated age NECK: Neck supple, no JVD or bruit CARDIOVASCULAR: Heart regular, no murmurs LUNGS/CHEST: Chest clear to auscultation. No rales, rhonchi, wheezing ABDOMEN: Soft, mild discomfort noted in the lower abdomen, hard bladder. Normal bowel sounds. EXTREMITIES: No edema, clubbing or cyanosis. SKIN: Skin exam normal without any rashes. IJ dialysis catheter noted NEUROLOGICAL : Able to move his extremities. Noted speech impairment. Objective Labs 05/28/25 04:01 05/28/25 04:01 Labs: Laboratory Results - last 24 hr 05/27/25 06:14 WBC 14.1 H RBC 3.17 L Hgb 9.5 L Hct 29.9 L MCV 94 MCH 30.0 MCHC 31.8 RDW Std Deviation 46.0 H Plt Count 337 Neut % (Auto) 78 Lymph % (Auto) 8 L [place] % (Auto) 6 Eos % (Auto) 2 Baso % (Auto) 1 Neut # (Auto) 11.1 H Lymph # (Auto) 1.2 [place] # (Auto) 0.9 H Eos # (Auto) 0.3 Baso # (Auto) 0.1 Immature Gran # (Auto) 0.63 H Absolute Nucleated RBC 0.00 Immature Gran % 5 H Nucleated RBC % 0 Sodium 138 Potassium 4.3 Chloride 101 Carbon Dioxide 26.0 Anion Gap 11 BUN 77 H Creatinine 3.3 H Estim Creat Clear Calc 21.0 L eGFR 20 L BUN/Creatinine Ratio 23 H Glucose 101 Calculated Osmolality 298 H Calcium 8.5 Corrected Calcium 9.0 Phosphorus 3.4 Magnesium 2.0 Total Bilirubin 0.3 AST 18 ALT 31 Alkaline Phosphatase 106 Total Protein 6.3 Albumin 3.4 Globulin 2.9 Albumin/Globulin Ratio 1.2 Random Vancomycin 15.2 Quality Measures Quality Measures VTE prophylaxis (SCDs) Assessment & Plan Assessment Current Active Medications: Generic Name Dose Route Start Last Admin Trade Name Freq PRN Reason Stop Dose Admin Acetaminophen 650 mg 05/16/25 10:21 05/20/25 17:26 Acetaminophen 325 Mg Tablet PO 06/15/25 10:20 650 mg Q6H PRN Administration Fever >100.4 or pain Protocol Heparin Sodium (Porcine) 3,300 unit 05/22/25 09:52 05/22/25 10:40 Heparin Sod Inj 1000 Unit/Ml Vial 10 Ml INDWELLCAT 06/05/25 09:51 3,300 unit X1 PRN Administration DIALYSIS Hydromorphone HCl 1 mg 05/23/25 13:49 05/23/25 14:01 Hydromorphone Inj 2 Mg/Ml Vial IVP 05/28/25 13:48 1 mg Q4HR PRN Administration PAIN SCALE 4-10(Mod-Sev Vancomycin/Sodium Chloride 100 mls @ 120 mls/hr 05/27/25 13:00 Vancomycin/Ns 500 Mg Ivpb IV 05/27/25 13:49 X1 ONE Albumin Human 25 gm in 100 mls @ 100 mls/min 05/27/25 08:56 Albuminar-25 Ivpb IV PRN PRN DIALYSIS Melatonin 3 mg 05/22/25 22:27 05/24/25 22:09 Melatonin 3 Mg Tablet PO 06/22/25 20:59 3 mg HS PRN Administration insomnia Ondansetron HCl 4 mg 05/16/25 10:21 Ondansetron Inj 2 Mg/Ml Inj 2 Ml IVP 06/15/25 10:20 Q6H PRN NAUSEA OR VOMITING Protocol Pantoprazole Sodium 40 mg 05/26/25 09:00 05/27/25 10:11 Pantoprazole 40 Mg Tablet PO 06/16/25 08:59 Not Given QDAY [facility] Pharmacy Consult 1 each 05/21/25 10:00 Vancomycin Pharmacy To Dose 1 Each Each IV 06/05/25 09:59 QDAY PRN CONSULT Ropinirole HCl 0.5 mg 05/25/25 22:00 05/27/25 05:51 Ropinirole Hcl 0.25 Mg Tablet PO 06/24/25 21:59 0.5 mg TID [facility] Administration Plan Amarjit Meade is a 62-year-old male with no past medical history presented for mechanical fall at work due to chorea-like movements, found to have Cr 6.2 and BUN 92 with bladder mass and advanced hydronephrosis. #Obstructive uropathy 2/2 bladder mass causing #Bilateral hydronephrosis s/p b/l nephrostomy tubes 05/17 #CORINA on likely CKDIV on HD Patient has no history of kidney disease or any recent lab values to compare. ~30 pack year, quit 04/2025. Reports new enuresis for the past few weeks and jerky movements for a few months, latter ddx likely uremic origin with improvement in movement post dialysis. Ddx includes obstrutive uropathy from possible bladder cancer causing CORINA vs CKD, likely ESRD as NM renal scan showed no renal fx with minimal flow to Lt kidney and reduced flow to Rt kidney CT abd pelvis showed advanced b/l hydronephrosis, extensive abdominal and pelvic lymphadenopathy, distended urinary bladder with marked irregular bladder wall thickening, enzo posteriorly most consistent with bladder cancer. MRI brain showed no mets Lymph node biopsies not able to be done. Nephrostomy tubes: b/l placed 05/17, L fell out 05/19, L replaced 05/20, R replaced 05/21 Perm cath inserted 05/21 Received HD 05/18, 05/19, 05/20, 05/22, 05/24, 05/27 Cystoscopy 05/22 showed large prostate and very large bladder tumor occupying both ureteral orifices, tumor resected with bleeding stopped with fulguration, biopsy taken and sent to [facility] Renal US showed severe right hydronephrosis, L hydronephrosis much improved. Plan: -Patient needs transfer to higher level of care -HD today -Pending biopsy results from [facility] -Plan for Rt nephrostomy tube replacement today #Chorea movements-improved #Normocytic anemia #Hyperparathyroidism -Management per primary team. Plan discussed with nephrology attending Dr. Esther Matamoros, DO Internal Medicine PGY-1 Attending Provider Attestation/Addendum Patient seen and examined with resident physician Dr. Matamoros. Note reviewed, agree with findings and recommendations. Marisabel at bedside. Patient more alert and awake today. Admitted with CORINA secondary to obstructive uropathy. Patient had cystoscopy-showed large bladder tumor. Biopsy was taken. Spoke to Dr. Hernandez-patient needs to go to tertiary [facility] center for large aggressive bladder tumor. match up worker to help him with transfer.. Outpatient dialysis also should be arranged. Spoke to primary team. Despite bilateral nephrostomy tubes-repeat renal ultrasound showed a large right hydronephrosis. Will plan for right nephrostomy tube exchange today. Probably it is not working. Plan of care discussed with primary team. Patient currently seen on dialysis. Tolerating dialysis without any problems. Hemodialysis for 3 hours, 2K, ultrafiltration 0 L, Epogen 6000, no heparin ordered. Plan of care discussed with the dialysis nurse. Please see dialysis flowsheet for further details.
[2025-05-27] MEDS: EPOETIN ALFA-EPBX INJ 10,000 UNIT/ML VIAL (ESRD) 10000 UNIT IV (10:57)
--- NOTE | 2025-05-27 11:28 | PC.NURSE ---
Patient returned from dialysis at this time. Patient alert and oriented, denies pain.
[2025-05-27] MEDS: HEPARIN SOD INJ 1000 UNIT/ML VIAL 10 ML 3300 UNIT INDWELLCAT (11:34)
[2025-05-27] MEDS: HEPARIN SOD LOCK SYR 100 UNIT/ML 500 UNIT STFIELD (12:40)
[2025-05-27] MEDS: fentaNYL CIT INJ 50 mCg/ML AMP 2ML 100 MCG IVP (13:02)
[2025-05-27] MEDS: LIDOCAINE INJ PF 1% 30 ML VIAL 10 ML INFL (13:04)
--- NOTE | 2025-05-27 13:40 | PC.NURSE ---
Patient returned from IR at this time. Right neph tube exchanged, total of 400ml drained. Patient denies pain.
[2025-05-27] MEDS: VANCOMYCIN/NS 500 MG IVPB 100 ML 120 MG IV (14:27)
--- NOTE | 2025-05-27 14:37 | PD.ONCPROG ---
Documentation for date of: 05/27/25 Subjective Subjective Interval history: Patient presented with suspected bladder malignancy with bilateral hydronephrosis status post bilateral nephrostomy tube placement. The right nephrostomy tube had to be replaced this a.m. due to nonfunctioning. Attempt at transfer to high-level care reportedly was not successful. Exam Vital Signs Temp Pulse Resp BP Pulse Ox O2 Del Method O2 Flow Rate 97.4 F 85 19 95/69 100 Nasal Cannula 3 05/27/25 11:54 05/27/25 13:15 05/27/25 13:15 05/27/25 13:15 05/27/25 13:15 05/27/25 13:15 05/27/25 13:15 Objective Labs 05/27/25 06:14 05/27/25 06:14 Labs: Laboratory Results - last 24 hr 05/27/25 06:14 WBC 14.1 H RBC 3.17 L Hgb 9.5 L Hct 29.9 L MCV 94 MCH 30.0 MCHC 31.8 RDW Std Deviation 46.0 H Plt Count 337 Neut % (Auto) 78 Lymph % (Auto) 8 L [place] % (Auto) 6 Eos % (Auto) 2 Baso % (Auto) 1 Neut # (Auto) 11.1 H Lymph # (Auto) 1.2 [place] # (Auto) 0.9 H Eos # (Auto) 0.3 Baso # (Auto) 0.1 Immature Gran # (Auto) 0.63 H Absolute Nucleated RBC 0.00 Immature Gran % 5 H Nucleated RBC % 0 Sodium 138 Potassium 4.3 Chloride 101 Carbon Dioxide 26.0 Anion Gap 11 BUN 77 H Creatinine 3.3 H Estim Creat Clear Calc 21.0 L eGFR 20 L BUN/Creatinine Ratio 23 H Glucose 101 Calculated Osmolality 298 H Calcium 8.5 Corrected Calcium 9.0 Phosphorus 3.4 Magnesium 2.0 Total Bilirubin 0.3 AST 18 ALT 31 Alkaline Phosphatase 106 Total Protein 6.3 Albumin 3.4 Globulin 2.9 Albumin/Globulin Ratio 1.2 Random Vancomycin 15.2 Assessment & Plan A&P Narrative 1. Suspected bladder malignancy, with widespread abdominal pelvic mets. TUR fulguration of bladder tumor 05/22/2025. Pathology pending. 2. Status post bilateral nephrostomy for hydronephrosis, right 1 replaced today for nonfunction. Receiving hemodialysis. 3. Reportedly not accepted for transfer to tertiary center. Patient was given follow-up at the cancer treatment center and biopsy and further workup and care will be discussed with patient. 4. Spoke with Marisabel Meade about referral from the primary care providers at [facility]. Time Spent With Patient Time: Total time spent is greater than 50% in coordination of care (as documented) at patient's floor/unit and/or counseling patient:
[2025-05-27] MEDS: ACETAMINOPHEN 325 MG TABLET 650 MG PO (17:00)
--- NOTE | 2025-05-27 17:55 | ESPR_ITS ---
<Statement entered by Lachelle Josue MD - 06/01/25 12:37> I reviewed above note and agree with findings and plans. I have also personally examined the patient with medicine team and went over assessment and plan with medical team including market research intern and resident physician. <Statement entered by Abhay Rojas MD - 05/27/25 19:39> Patient was seen and examined at the bedside. Patient continues to have abnormal movements and difficulty in speaking. Hemodialysis today per schedule.Will follow up with neuro after LP results. oncologist consulted. he recommends outpt follow up. Pending outp HD chair. All labs and order reviewed. I discussed and supervised with the market research intern physician who took care of this patient. I personally saw and examined the patient. I agree with most of the assessment and plan. Disclaimer: Despite multiple revisions, due to the dictation software being used, the document bellow may not be free of grammatical errors including phonetic/typographic errors. However, this does not deter from our commitment to providing health care in the patient's best interest in mind. Plan of care discussed with attending Physician Dr. Joselo Rojas MD PGY-3 Documentation for date of: 05/27/25 Subjective Subjective Interval history: No overnight events. Evaluated at bedside. HD today, plan for out pt HD. Successful right percutaneous nephrostomy tube replacement today, draining urine post insertion. Plan for LP with neurology, CSF assess for for autoimmune encephalitis/paraneoplastic process. ID recommends vanco with hd thru 05/31. Spoke with Dr. Gonzales, he does not recommend surgical option for pt's bladder tumor due to high risks/mortality, recs consulting oncology since pt was declined transfer to higher level of care. Spoke with urologist at [facility], who agrees that radical cystectomy for this pt may lead to poor outcome/high mortality. Spoke with Dr. Carrion on the phone, he recs outpt follow up with him in the office pending bladder tumor pathology report. Exam Vital Signs Temp Pulse Resp BP Pulse Ox O2 Del Method O2 Flow Rate 97.0 F 80 20 127/72 98 Nasal Cannula 3 05/27/25 16:00 05/27/25 16:00 05/27/25 16:00 05/27/25 16:00 05/27/25 16:00 05/27/25 16:00 05/27/25 16:00 Narrative Exam General: malnourished, frail in no distress. Oriented x 3. Afebrile. Skin: No rash, unusual bruising or prominent lesions Head: Normocephalic, atraumatic, no visible or palpable masses, depressions, or scaring. Eyes: conjunctiva clear, sclera non-icteric, no exudates or hemorrhages. Near sighted. Heart: Regular rate and rhythm Lungs: Clear to auscultation. No rales, wheeze, or rhonchi Abdomen: No tenderness, guarding or rigidity. Back: Right nephrostomy tube in place. Left nephrostomy tube in place. Extremities: No amputations or deformities, cyanosis, edema or varicosities, peripheral pulses intact. Perm Hemodialysis catheter in place at right subclavian jugular vein. Neurologic: Alert and oriented x 3, chorea like movements decreased. Unclear speech at baseline due to missing of upper dental plate. Objective Labs 05/30/25 04:37 05/30/25 04:37 Labs: Laboratory Results - last 24 hr 05/27/25 06:14 WBC 14.1 H RBC 3.17 L Hgb 9.5 L Hct 29.9 L MCV 94 MCH 30.0 MCHC 31.8 RDW Std Deviation 46.0 H Plt Count 337 Neut % (Auto) 78 Lymph % (Auto) 8 L [place] % (Auto) 6 Eos % (Auto) 2 Baso % (Auto) 1 Neut # (Auto) 11.1 H Lymph # (Auto) 1.2 [place] # (Auto) 0.9 H Eos # (Auto) 0.3 Baso # (Auto) 0.1 Immature Gran # (Auto) 0.63 H Absolute Nucleated RBC 0.00 Immature Gran % 5 H Nucleated RBC % 0 Sodium 138 Potassium 4.3 Chloride 101 Carbon Dioxide 26.0 Anion Gap 11 BUN 77 H Creatinine 3.3 H Estim Creat Clear Calc 21.0 L eGFR 20 L BUN/Creatinine Ratio 23 H Glucose 101 Calculated Osmolality 298 H Calcium 8.5 Corrected Calcium 9.0 Phosphorus 3.4 Magnesium 2.0 Total Bilirubin 0.3 AST 18 ALT 31 Alkaline Phosphatase 106 Total Protein 6.3 Albumin 3.4 Globulin 2.9 Albumin/Globulin Ratio 1.2 Random Vancomycin 15.2 Quality Measures Quality Measures VTE prophylaxis (SCDs) Assessment & Plan Assessment Current Active Medications: Generic Name Dose Route Start Last Admin Trade Name Madisyn PRN Reason Stop Dose Admin Acetaminophen 650 mg 05/16/25 10:21 05/27/25 17:00 Acetaminophen 325 Mg Tablet PO 06/15/25 10:20 650 mg Q6H PRN Administration Fever >100.4 or pain Protocol Heparin Sodium (Porcine) 3,300 unit 05/22/25 09:52 05/27/25 11:34 Heparin Sod Inj 1000 Unit/Ml Vial 10 Ml INDWELLCAT 06/05/25 09:51 3,300 unit X1 PRN Administration DIALYSIS Hydromorphone HCl 1 mg 05/23/25 13:49 05/23/25 14:01 Hydromorphone Inj 2 Mg/Ml Vial IVP 05/28/25 13:48 1 mg Q4HR PRN Administration PAIN SCALE 4-10(Mod-Sev Albumin Human 25 gm in 100 mls @ 100 mls/min 05/27/25 08:56 Albuminar-25 Ivpb IV PRN PRN DIALYSIS Melatonin 3 mg 05/22/25 22:27 05/24/25 22:09 Melatonin 3 Mg Tablet PO 06/22/25 20:59 3 mg HS PRN Administration insomnia Ondansetron HCl 4 mg 05/16/25 10:21 Ondansetron Inj 2 Mg/Ml Inj 2 Ml IVP 06/15/25 10:20 Q6H PRN NAUSEA OR VOMITING Protocol Pantoprazole Sodium 40 mg 05/26/25 09:00 05/27/25 10:11 Pantoprazole 40 Mg Tablet PO 06/16/25 08:59 Not Given QDAY [facility] Pharmacy Consult 1 each 05/21/25 10:00 Vancomycin Pharmacy To Dose 1 Each Each IV 06/05/25 09:59 QDAY PRN CONSULT Ropinirole HCl 0.5 mg 05/25/25 22:00 05/27/25 14:25 Ropinirole Hcl 0.25 Mg Tablet PO 06/24/25 21:59 0.5 mg TID [facility] Administration Plan Mr. Meade is a 64M with unknown past medical history presents for ground level fall. Pt is a poor historian, history obtained from at bedside. Pt denies midline tenderness, neck or head injury. Pt has a chorea-like repetitive movement at baseline, which the states started a few weeks ago. US Bladder shows a bladder mass with bilateral hydronephrosis. Admitted for CORINA with creatinine of 6.2. Perm cath inserted at right subclavian vein. Cystoscopy shows bleeding from tumor. Decide to not proceed with pelvic lymph node biopsy per IR team recommendation. Declined x3 for transfer to higher level of care. Spoke with urologist at [facility], recs not to perform radical cystectomy due to pt's condition, may lead to poor outcome/high mortality. Spoke with Dr. Kent, who agrees for high mortality rate if proceed with surgical option. Dr. Carrion recs outpt follow up with his office for further management. #Bladder mass, likley malignancy #Newly Diagnosed ESRD #acute renal failure 2/2 obstructive uropathy #B/L hydronephrosis CTAP with BL hydronephrosis and bladder mass Solid nodule noted on bladder wall measuring 2.8 x 1.9 x 1.4cm US, bladder mass, and R severe hydronephrosis Nephrology consulted: perm cath at right subclavian, Irrigate viveros if has clot retention, at this time not a good candidate for surgical intervention, repeat kidney US on 05/23 shows severe right hydronephrosis still. IR recommends to not proceed with pelvic lymph node biopsy due to location and size of lymph node NM renal scan shows no renal function. 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 Spoke with Dr. Kent who also agrees with high mortality rate for surgical intervention, recs oncology consultation. Right nephrostomy tube replaced 05/27/25 - Daily CMP, trend electrolyte. - ID consulted appreciate recs: cont IV abx. 05/31 - HD per nephrology recommendation - strict I/O - renal dose medication - Bilateral nephrostomy tube in place. keep due to urology needs - viveros catheter in place, if not draining okay to manually irrigate per urology. - Outpt follow up for further management with oncology, Dr. Carrion. #GPC bacteremia vs contamination - Staph epi #GPC vs GNR pneumonia CT chest on 05/19 shows significant bibasilar pneumonia, WBC now wnl Initial elevated ESR, prolactin, CRP, likely due to poor renal function and tumor mass 2/2 Bcx on 05/20 grows GPC.- staph epi Repeat 05/21 Bcx shows no growth ECHO no vegitations, EF 50-55% - d/c Rocephin 1g QD and doxycycline 100mg BID - Continue vancomycin per ID recs, pharmacy to dose. 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 - Oncology consulted: Tumor markers: CA 19-9 elevated. CEA elevated, PSA negative. - Neuro consulted: clonazepam, ok for anticholinergic meds, valbenazine or deutrabenozine (not available on formulary). Plan for LP on 05/27 for workup on paraneoplastic or autoimmune encephalitis Tx - Increase Ropinirole 0.25mg to 0.5mg TID #Anemia of chronic disease Concerns for bleeding at tumor site bladder, - A unit of blood was transfused during dialysis on 05/22, post transfusion h/h 08/29 - Retacrit 10,000unit x1 - daily CBC, if falls below 8, consider blood transfusion - EPO given , iron panel. #Hyperparathyroidism PTH 370.5. Ca 8.6 likely secondary to renal failure - follow up out patient Dispo: cont iv abx for bacteremia, tardive dyskinesia vs chorea movements persist DVT prophylaxis: SCDs GI prophylaxis: Protonix 40 IV Diet: Renal Diet Lines: Peripheral IV, viveros catheter, bilateral nephrostomy tube in place, R IJ perm catheter Code status: Full code Case discussed with my senior resident Dr. Rojas Case discussed with my attending Dr. Joselo Kirk, DO PGY-1
--- NOTE | 2025-05-27 19:27 | PC.NURSE ---
LP completed by Dr. Main.
[2025-05-27 19:33] LABS: Coccid Serology, CF CSF (UCD)* See Sep Rpt; Misc Send Out* See Sep Rpt
[2025-05-27] MEDS: HYDROmorphone INJ 2 MG/ML VIAL 1 MG IVP (19:49)
[2025-05-27 20:01] LABS: Glucose,CSF 69 mg/dL (40-70); Protein Total,CSF 36 mg/dL (8-32)
[2025-05-27 20:04] LABS: CSF Cell Count Tube # Tube # 4; CSF Color Colorless (Colorless); CSF Mononuclear 50 %; CSF Polynuclear WBC 50 %; CSF Red Blood Cell 2.2 /cmm; CSF White Blood Cell 2.2 /cmm; CSF, Appearance Clear (Clear)
[2025-05-28] VITALS (7 sets, daily range): BP systolic 98–118; BP diastolic 53–64; PULSE 74–102; RESP 16–18; TEMP 36.2–37.2; O2SAT 95–97; BMI 13.0
--- NOTE | 2025-05-28 02:04 | PD.EVENT ---
Documentation for date of: 05/27/25 Date of procedure: 05/27/25 Pre-op diagnosis: Abnormal inv movements Post-op diagnosis: Same Consent signed by: patient Position: sitting Prep: betadine Anesthesia: 1 % Lidocaine Sedation: none Needle size: 22ga Needle length: 3.5 Interspace: L3-4 Number of attempts: 3 Opening pressure: not done Fluids mLs collected: 15 Fluid description: clear Complications: No Procedure performed by: Andrew Castellon Disposition: no change
[2025-05-28] MEDS: HYDROmorphone INJ 2 MG/ML VIAL 1 MG IVP ×2 (02:36→13:28)
[2025-05-28 05:52] LABS: Basophils # (Auto) 0.1 Thou/mm3 (0.0-0.2); Basophils % (Auto) 1 % (0-2.5); Eosinophils # (Auto) 0.2 Thou/mm3 (0.0-0.5); Eosinophils % (Auto) 1 % (0-10); Hematocrit 30.0 % (41.0-53.0); Hemoglobin 9.4 g/dL (13.5-16.0); Immature Granulocytes Auto 0.53 Thou/mm3 (0.00-0.00); Lymphocytes # (Auto) 1.2 Thou/mm3 (1.0-4.8); Lymphocytes % (Auto) 9 % (10-50); Mean Corpuscular HGB Conc 31.3 g/dl (31.0-37.0); Mean Corpuscular Hemoglobin 29.7 pg (25.0-35.0); Mean Corpuscular Volume 95 fL (80-100); Monocytes # (Auto) 1.1 Thou/mm3 (0.0-0.8); Monocytes % (Auto) 9 % (0-12); Neutrophils # (Auto) 9.6 Thou/mm3 (1.8-7.7); Neutrophils % (Auto) 76 % (37-80); Nucleated Red Blood Cell # 0.02 Thou/mm3 (0.00-0.00); Nucleated Red Blood Cell % 0 /100 WBC (0); Platelet Count 374 Thou/mm3 (140-440); RDW Standard Deviation 46.9 fL (35.1-43.9); Red Blood Count 3.17 Miln/mm3 (4.50-5.90); White Blood Count 12.6 Thou/mm3 (3.8-10.6)
[2025-05-28 06:05] LABS: Alanine Aminotransferase 24 U/L (10-49); Albumin, Serum 3.3 gm/dL (3.4-4.8); Albumin/Globulin Ratio 1.1 (1.2-2.2); Alkaline Phosphatase 103 U/L (46-116); Anion Gap 11 (7-16); Aspartate Amino Transferase 17 U/L (0-34); BUN/Creatinine Ratio 19 Ratio (12-20); Bilirubin,Total 0.2 mg/dL (0.3-1.2); Blood Urea Nitrogen 52 mg/dL (9-23); Calcium 8.5 mg/dL (8.3-10.6); Calcium (Corrected) 9.1 mg/dL (8.5-10.1); Carbon Dioxide 27.6 mMol/L (20.0-31.0); Chloride 101 mMol/L (98-107); Creatinine (Component) 2.8 mg/dL (0.6-1.3); Estimated Creatinine Clearance 24.8 mL/min (>60); Globulin 2.9 gm/dL (2.3-3.5); Glucose 108 mg/dL (74-106); Osmolality,Calculated 294 (275-295); Potassium 4.2 mMol/L (3.4-5.1); Sodium 140 mMol/L (136-145); Total Protein 6.2 gm/dL (5.7-8.2); Vancomycin,Random 18.8 mcg/mL; eGFR 25 See Note
[2025-05-28 06:38] LABS: Misc Send Out* See Sep Rpt
[2025-05-28 06:40] LABS: Misc Send Out* See Sep Rpt
--- NOTE | 2025-05-28 07:29 | ESPR_ITS ---
Documentation for date of: 05/28/25 Subjective Subjective Interval history: Patient evaluated at bedside with family. He reports low back pain (site of nephrostomy tubes, LP) but denies headache, pain in other areas, or paresthesias. He has difficulty sleeping at night and requested a sleep medication to help him. Patient has melatonin ordered QHS. 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 Patient and family counseled on importance of delirium precautions including opening curtains during the day to see the sun and orienting to time. Exam Vital Signs Temp Pulse Resp BP Pulse Ox O2 Del Method O2 Flow Rate 98.1 F 87 18 112/63 95 Room Air 3 05/28/25 04:00 05/28/25 04:00 05/28/25 04:00 05/28/25 04:00 05/28/25 04:00 05/28/25 04:00 05/27/25 16:00 Narrative Exam Orientation: AOx3 Communication: Patient is cooperative and can follow simple instructions Language: Speech somewhat difficult to understand as patient's upper teeth removed previously, normal rate and volume, comprehension intact, repetition intact, naming intact. No word finding difficulties appreciated on exam Cranial nerves: CN II: Visual esquivel intact CN III: Pupils equal, round, and reactive to light CN III, IV, : No gaze deviation, no nystagmus Horizontal pursuit: intact Vertical pursuit: intact Ptosis: none CN V: Facial sensation to light touch intact bilaterally at the forehead, cheeks, and jaw line CN VII: Face symmetric, no facial droop appreciated CN VIII: Able to hear and respond to conversation at normal volume, intact to finger rub CN IX, X: Palate elevation symmetric, uvula midline CN XI: Head turn and shoulder shrug strong, symmetric bilaterally CN XII: Normal tongue protrusion without deviation, no fasciculations Motor: Normal tone Generalized muscle atrophy appreciated Abnormal movements appreciated in in all extremities, most prominent in bilateral feet and mouth (subjectively associated with feeling of restlessness) Muscle strength: Shoulder abduction: R 5/5 L 5/5 Elbow flexion: R 5/5 L 5/5 Elbow extension: R 5/5 L 5/5 Hip flexion: R 5/5 L 5/5 Hip extension: R 5/5 L 5/5 Knee flexion: R 5/5 L 5/5 Knee extension: R 5/5 L 5/5 Sensory: RUE: Light touch intact LUE: Light touch intact RLE: Light touch intact LLE: Light touch intact Reflexes: Biceps (C5-6): R 2+ L 2+ Brachioradialis (C5-6): R 2+ L 2+ Triceps (C7-8): R 2+ L 2+ Patellae (L3-4): R 2+ L 2+ Achilles (S1-2):R 2+ L 2+ Objective Labs 05/29/25 04:20 05/29/25 04:20 Labs: Laboratory Results - last 24 hr 05/27/25 05/27/25 05/28/25 06:14 19:20 04:01 WBC 12.6 H RBC 3.17 L Hgb 9.4 L Hct 30.0 L MCV 95 MCH 29.7 MCHC 31.3 RDW Std Deviation 46.9 H Plt Count 374 D Neut % (Auto) 76 Lymph % (Auto) 9 L [place] % (Auto) 9 Eos % (Auto) 1 Baso % (Auto) 1 Neut # (Auto) 9.6 H Lymph # (Auto) 1.2 [place] # (Auto) 1.1 H Eos # (Auto) 0.2 Baso # (Auto) 0.1 Immature Gran # (Auto) 0.53 H Absolute Nucleated RBC 0.02 H Immature Gran % 4 H Nucleated RBC % 0 Sodium 138 140 Potassium 4.3 4.2 Chloride 101 101 Carbon Dioxide 26.0 27.6 Anion Gap 11 11 BUN 77 H 52 H Creatinine 3.3 H 2.8 H D Estim Creat Clear Calc 21.0 L 24.8 L eGFR 20 L 25 L BUN/Creatinine Ratio 23 H 19 Glucose 101 108 H Calculated Osmolality 298 H 294 Calcium 8.5 8.5 Corrected Calcium 9.0 9.1 Phosphorus 3.4 Magnesium 2.0 Total Bilirubin 0.3 0.2 L AST 18 17 ALT 31 24 Alkaline Phosphatase 106 103 Total Protein 6.3 6.2 Albumin 3.4 3.3 L Globulin 2.9 2.9 Albumin/Globulin Ratio 1.2 1.1 L CSF Appearance Clear CSF Color Colorless CSF WBC 2.2 CSF RBC 2.2 CSF Cell Count Tube # Tube # 4 CSF Mononuclear WBCs 50 CSF Polynuclear WBCs 50 CSF Glucose 69 CSF Total Protein 36 H Random Vancomycin 15.2 18.8 Misc Test Result Cancelled Quality Measures Quality Measures VTE prophylaxis (SCDs) Assessment & Plan Assessment Current Active Medications: Generic Name Dose Route Start Last Admin Trade Name Freq PRN Reason Stop Dose Admin Acetaminophen 650 mg 05/16/25 10:21 05/27/25 17:00 Acetaminophen 325 Mg Tablet PO 06/15/25 10:20 650 mg Q6H PRN Administration Fever >100.4 or pain Protocol Heparin Sodium (Porcine) 3,300 unit 05/22/25 09:52 05/27/25 11:34 Heparin Sod Inj 1000 Unit/Ml Vial 10 Ml INDWELLCAT 06/05/25 09:51 3,300 unit X1 PRN Administration DIALYSIS Hydromorphone HCl 1 mg 05/23/25 13:49 05/28/25 02:36 Hydromorphone Inj 2 Mg/Ml Vial IVP 05/28/25 13:48 1 mg Q4HR PRN Administration PAIN SCALE 4-10(Mod-Sev Albumin Human 25 gm in 100 mls @ 100 mls/min 05/27/25 08:56 Albuminar-25 Ivpb IV PRN PRN DIALYSIS Melatonin 3 mg 05/22/25 22:27 05/24/25 22:09 Melatonin 3 Mg Tablet PO 06/22/25 20:59 3 mg HS PRN Administration insomnia Ondansetron HCl 4 mg 05/16/25 10:21 Ondansetron Inj 2 Mg/Ml Inj 2 Ml IVP 06/15/25 10:20 Q6H PRN NAUSEA OR VOMITING Protocol Pantoprazole Sodium 40 mg 05/26/25 09:00 05/27/25 10:11 Pantoprazole 40 Mg Tablet PO 06/16/25 08:59 Not Given QDAY [facility] Pharmacy Consult 1 each 05/21/25 10:00 Vancomycin Pharmacy To Dose 1 Each Each IV 06/05/25 09:59 QDAY PRN CONSULT Ropinirole HCl 0.5 mg 05/25/25 22:00 05/28/25 06:21 Ropinirole Hcl 0.25 Mg Tablet PO 06/24/25 21:59 0.5 mg TID [facility] Administration Plan # Abnormal movements, present on admission # Word-finding difficulty, present on admission # Previous falls Abnormal movements improved after nephrostomy tube placement and hemodialysis. Patient comprehension, repetition, naming intact. No aphasia appreciated on exam. No focal neuro deficit appreciated Pt denies hx of psychiatric medications No symptom improvement with clonazepam trial, Ropinirol 0.5 mg TID Valbenazine/deutetrabenazine nonformulary/not available in this hospital MRI brain w/o 05/20: no acute hemorrhage. Moderate chronic microvascular white matter changes. Prominent atrophy. No focal metastases. TTE 05/23: LVEF 50-55%, no vegetations CSF: WBC 2.2, RBC 2.2, monocytes 50%, polynucleocytes 50%, glucose 69, protein 36 high DDX: tardive dyskinesia, akathisia, azotemia, infection, paraneoplastic, restless leg syndrome, Michael's disease Plan: - Discontinue ropinirole 0.5 mg TID - Start Carbamazepine 200 mg TID. Monitor for hyponatremia - Pending serum copper, ceruloplasmin, urinary copper - Pending CSF analysis for autoimmune encephalitis/paraneoplastic process (NMDA receptor Ab, LGI1 Ab, anti-Hu Ab, anti-Yo Ab) (VDRL, WNV, cocci, HSV) - F/U outpatient for lab results and further management - OK to discharge from neurological perspective #Newly Diagnosed ESRD #CORINA intrarenal vs Post obstructive uropathy #B/L hydronephrosis #Bladder mass #Pneumonia #CAUTI vs Catheter-related bloodstream infection #2/2 BCx GPC #Anemia of chronic disease #Hyperparathyroidism Plan: - Management per primary - Pending transfer to higher level of care - transfer refused at 3 separate locations, will likely need outpatient clinic followup Plan discussed with Dr. Cande Dyson, PGY1 Attending Provider Attestation/Addendum I independently reviewed the patient chart and I agreed with resident's findings, assessment and plan of care. CSF protein is not high enough to suggest therapies including IV steroids/IVIG will be neeeded at this time. FU with rest of the CSF analysis when they become available. Will try Tegretol in place of Requip for controlling these movements.
--- NOTE | 2025-05-28 08:39 | PC.SS ---
Addendum entered by Michelle Zafar 05/28/25 13:17: SS follow up note; SS contacted patient's and provided chair time. Marisabel also informed SS that patient has an appointment at the [facility] on Jun 04. Original Note: SS follow up note; SS was contacted by Arcelia cid financial counselor informing SS that patients Medi-miguel is active. SS contacted Claudia from [facility] and Claudia informed SS that chair time was established, patient will have dialysis on Tuesdays, , Tuesday's at 11AM. Patient will need to be there at 10:30AM for his first dialysis session. SS will provide dialysis chair time to patient and patient's . SS updated Dr. Jansen.
[2025-05-28] MEDS: ACETAMINOPHEN 325 MG TABLET 650 MG PO ×2 (09:08→21:36)
[2025-05-28] MEDS: PANTOPRAZOLE 40 MG TABLET PO (09:08)
[2025-05-28 09:41] LABS: Magnesium 1.9 mg/dL (1.6-2.6); Phosphorous 4.0 mg/dL (2.4-5.1)
--- NOTE | 2025-05-28 10:15 | PD.RESPRO ---
Documentation for date of: 05/28/25 Subjective Subjective Interval history: Amarjit Meade is a 62-year-old male with no past medical history presented for mechanical fall at work. States that he fell forward because his lower back has been giving out for the past few months. He has also been having chorea-like, jerky movements for the past few months and is supposed to see neurology but is having insurance issues. Has not seen a physician in many years. Per , patient has been having enuresis for the past few weeks and claims patient is stubborn and does not want to see a physician. Patient's urine is normally green due to vitamin supplements. Patient admits that he does not drink very much water nor does he urinate very much. Denies pain on urination, increase in urinary urgency, frequency or hesitancy, interrupted stream, any history of prostate issues, flank pain, or recent weight loss. Denies fever, chills, shortness of breath or chest pain. Denies family history of any kidney disease or dialysis. 05/23/25: Patient seen and examined at bedside with . Has a very mild headache. Araiza bag still bloody. Cr 3.1, BUN 38. Continues to have some word finding difficulty even though choreiform movements have improved. 05/24/25: Patient seen and examined in dialysis. No complaints. Araiza bag is less bloody. Social work reports patient will be getting [employer] on Tuesday. Cr 3.6 and BUN 38. Denies chest pain, SOB or fever. 05/25/2025 Marisabel at bedside. Patient continues to have some restlessness, confusion and speech problems. Neurology was consulted. Dr Castellon was called-recommended to continue with ropinirole. She is planning to do possible LP on Tuesday if no improvement. MRI showed no acute stroke. Patient so far received 4 dialysis sessions. Dynamo Repairer form movements improved markedly although his speech problem remains. Marisabel Able to get him insurance. Spoke to Dr. Hernandez-patient seems to have aggressive bladder cancer causing significant hydronephrosis and pain. Right nephrostomy tube not draining any urine. Will try to reposition on Tuesday. Spoke to primary team to start the transfer to higher level of care for cystectomy and ileal conduit. and patient had several questions which were answered to their satisfaction. Time spent today more than 40 minutes. 05/26/2025: Patient seen and examined at bedside with . Reports difficulty sleeping due to restlesseness in which Dr. Castellon to 0.5 mg TID and to consider doing LP on Tuesday to evaluate further if persists. Social work was able to get him insurance. Rt nephrostomy tube still not draining urine and plan to reposition Tuesday. BUN 61 and Cr 3.1. 05/27/2025: Patient seen and examined in dialysis. No new complaints and reports tolerating dialysis well. Plan for Rt nephrostomy tube replacement. Lt nephrostomy draining clear urine. Araiza bag bloody, however less than yesterday. BUN 77 and Cr 3.3. 05/28/2025: Patient seen and examined at bedside. Reports feeling well, denies abdominal pain or back pain. Bilateral nephrostomy tubes draining R>L, as R replaced yesterday. Araiza bag mild hematuria. Cr and BUN improving 2.8 and 52 respectively. Plan for discharge today with nephrostomy tubes and as patient has outpatient dialysis chair scheduled T/R/S [id number]. Multiple transfers denied and pt recommended to follow up with [facility] resident clinic for outpatient primary care, f/u of LP and biopsy results, as well as coordination with outpatient specialists. Exam Vital Signs Temp Pulse Resp BP Pulse Ox O2 Del Method O2 Flow Rate 97.4 F 74 17 101/63 96 Room Air 3 05/28/25 08:00 05/28/25 08:00 05/28/25 08:00 05/28/25 08:00 05/28/25 08:00 05/28/25 08:00 05/27/25 16:00 Narrative Exam GENERAL APPEARANCE: Patient seems to have lost weight. Temporal wasting noted, appears older than stated age NECK: Neck supple, no JVD or bruit CARDIOVASCULAR: Heart regular, no murmurs LUNGS/CHEST: Chest clear to auscultation. No rales, rhonchi, wheezing ABDOMEN: Soft, mild discomfort noted in the lower abdomen, hard bladder. Normal bowel sounds. b/l draining nephrostomy tubes in place EXTREMITIES: No edema, clubbing or cyanosis. SKIN: Skin exam normal without any rashes. IJ dialysis catheter in place NEUROLOGICAL : Able to move his extremities. Noted speech impairment. Objective Labs 05/28/25 04:05/28/25 04:01 Labs: Laboratory Results - last 24 hr 05/27/25 05/28/25 19:20 04:01 WBC 12.6 H RBC 3.17 L Hgb 9.4 L Hct 30.0 L MCV 95 MCH 29.7 MCHC 31.3 RDW Std Deviation 46.9 H Plt Count 374 D Neut % (Auto) 76 Lymph % (Auto) 9 L [place] % (Auto) 9 Eos % (Auto) 1 Baso % (Auto) 1 Neut # (Auto) 9.6 H Lymph # (Auto) 1.2 [place] # (Auto) 1.1 H Eos # (Auto) 0.2 Baso # (Auto) 0.1 Immature Gran # (Auto) 0.53 H Absolute Nucleated RBC 0.02 H Immature Gran % 4 H Nucleated RBC % 0 Sodium 140 Potassium 4.2 Chloride 101 Carbon Dioxide 27.6 Anion Gap 11 BUN 52 H Creatinine 2.8 H D Estim Creat Clear Calc 24.8 L eGFR 25 L BUN/Creatinine Ratio 19 Glucose 108 H Calculated Osmolality 294 Calcium 8.5 Corrected Calcium 9.1 Phosphorus 4.0 Magnesium 1.9 Total Bilirubin 0.2 L AST 17 ALT 24 Alkaline Phosphatase 103 Total Protein 6.2 Albumin 3.3 L Globulin 2.9 Albumin/Globulin Ratio 1.1 L CSF Appearance Clear CSF Color Colorless CSF WBC 2.2 CSF RBC 2.2 CSF Cell Count Tube # Tube # 4 CSF Mononuclear WBCs 50 CSF Polynuclear WBCs 50 CSF Glucose 69 CSF Total Protein 36 H Random Vancomycin 18.8 Misc Test Result Cancelled Quality Measures Quality Measures VTE prophylaxis (SCDs) Assessment & Plan Assessment Current Active Medications: Generic Name Dose Route Start Last Admin Trade Name Madisyn PRN Reason Stop Dose Admin Acetaminophen 650 mg 05/16/25 10:21 05/28/25 09:08 Acetaminophen 325 Mg Tablet PO 06/15/25 10:20 650 mg Q6H PRN Administration Fever >100.4 or pain Protocol Heparin Sodium (Porcine) 3,300 unit 05/22/25 09:52 05/27/25 11:34 Heparin Sod Inj 1000 Unit/Ml Vial 10 Ml INDWELLCAT 06/05/25 09:51 3,300 unit X1 PRN Administration DIALYSIS Hydromorphone HCl 1 mg 05/23/25 13:49 05/28/25 02:36 Hydromorphone Inj 2 Mg/Ml Vial IVP 05/28/25 13:48 1 mg Q4HR PRN Administration PAIN SCALE 4-10(Mod-Sev Albumin Human 25 gm in 100 mls @ 100 mls/min 05/27/25 08:56 Albuminar-25 Ivpb IV PRN PRN DIALYSIS Melatonin 3 mg 05/22/25 22:27 05/24/25 22:09 Melatonin 3 Mg Tablet PO 06/22/25 20:59 3 mg HS PRN Administration insomnia Ondansetron HCl 4 mg 05/16/25 10:21 Ondansetron Inj 2 Mg/Ml Inj 2 Ml IVP 06/15/25 10:20 Q6H PRN NAUSEA OR VOMITING Protocol Pantoprazole Sodium 40 mg 05/26/25 09:00 05/28/25 09:08 Pantoprazole 40 Mg Tablet PO 06/16/25 08:59 40 mg QDAY SHADY Administration Pharmacy Consult 1 each 05/21/25 10:00 Vancomycin Pharmacy To Dose 1 Each Each IV 06/04/25 09:59 QDAY PRN CONSULT Ropinirole HCl 0.5 mg 05/25/25 22:00 05/28/25 06:21 Ropinirole Hcl 0.25 Mg Tablet PO 06/24/25 21:59 0.5 mg TID SHADY Administration Plan Amarjit Meade is a 62-year-old male with no past medical history presented for mechanical fall at work due to chorea-like movements, found to have Cr 6.2 and BUN 92 with bladder mass and advanced hydronephrosis. #Obstructive uropathy 2/2 bladder mass causing #Bilateral hydronephrosis s/p b/l nephrostomy tubes 05/17 #CORINA Patient has no history of kidney disease or any recent lab values to compare. ~30 pack year, quit 04/2025. Reports new enuresis for the past few weeks and jerky movements for a few months, latter ddx likely uremic origin with improvement in movement post dialysis. Likely obstrutive uropathy from bladder cancer causing CORINA on CKD vs ESRD. CT abd pelvis showed advanced b/l hydronephrosis, extensive abdominal and pelvic lymphadenopathy, distended urinary bladder with marked irregular bladder wall thickening, enzo posteriorly most consistent with bladder cancer. MRI brain showed no mets Lymph node biopsies not able to be done. NM renal scan showed no renal fx with minimal flow to Lt kidney and reduced flow to Rt kidney; however GFR slowly improving with good urine output s/p nephrostomy tubes and allieviation of hydronephrotic pressure, thus hoping for a renal recovery, whereas ESRD is irreversible with no recovery Nephrostomy tubes: b/l placed 05/17, L fell out 05/19, L replaced 05/20, R replaced 05/21 and 05/27 Perm cath inserted 05/21 Received HD 05/18, 05/19, 05/20, 05/22, 05/24, 05/27 Cystoscopy 05/22 showed large prostate and very large bladder tumor occupying both ureteral orifices, tumor resected with bleeding stopped with fulguration, biopsy taken and sent to [facility] [[email or web address]] Renal US showed severe right hydronephrosis, L hydronephrosis much improved. Patient needs transfer to higher level of care, but has been denied transfer to 3 locations. Plan: -Start HD outpatient T/R/S -No HD today -Pending biopsy results from [facility] [[email or web address]] -Can be d/c to SNF or with home health from nephrology standpoint in management of nephrostomy tubes and Araiza -Follow up with outpatient oncology and urology #Ch[place] movements-better #Normocytic anemia #Hyperparathyroidism -Management per primary team. Plan discussed with nephrology attending Dr. Esther Matamoros, DO Internal Medicine PGY-1 Attending Provider Attestation/Addendum Patient seen and examined with resident physician Dr. Matamoros. Note reviewed, agree with findings and recommendations. Marisabel at bedside. Patient more alert and awake today. Admitted with CORINA secondary to obstructive uropathy. Patient had cystoscopy-showed large bladder tumor. Biopsy was taken. Spoke to Dr. Hernandez-patient needs to go to tertiary care center for large aggressive bladder tumor. dockworker to help him with transfer.. Outpatient dialysis also should be arranged. Spoke to primary team. Despite bilateral nephrostomy tubes-repeat renal ultrasound showed a large right hydronephrosis. s/p right nephrostomy tube exchange. Dr. Carrion was consulted per Dr. Hernandez's request. Bladder biopsy showed aggressive bladder cancer. Plan of care discussed with primary team. Transferred held patient needs outpatient hematology consultation. Discharge planning per primary team once outpatient dialysis arrangements are made.
--- NOTE | 2025-05-28 15:52 | ESPR_ITS ---
<Statement entered by Lachelle Josue MD - 06/01/25 12:38> I reviewed above note and agree with findings and plans. I have also personally examined the patient with medicine team and went over assessment and plan with medical team including international controller and resident physician. Documentation for date of: 05/28/25 Subjective Subjective Interval history: No overnight events. Evaluated at bedside. Nephro suggests leaving the nephrostomy tubes in place since there's potential for pt's kidney to recover. Both nephrostomy tube and viveros continues to drain urine. Neuro ok with pt follow up out pt. Start HD outpt T/R/S. Pending biopsy results from [facility]. Spoke with pt's family and pt, they agree with going to a SNF, but may not able to find him a place in [place] due to pt's insurance. Will have another discussion with pt and pt's family tmr morning. Exam Vital Signs Temp Pulse Resp BP Pulse Ox O2 Del Method O2 Flow Rate 97.1 F 80 17 100/53 L 97 Room Air 3 05/28/25 12:00 05/28/25 12:00 05/28/25 12:00 05/28/25 12:00 05/28/25 12:00 05/28/25 12:00 05/27/25 16:00 Narrative Exam General: malnourished, frail in no distress. Oriented x 3. Afebrile. Skin: No rash, unusual bruising or prominent lesions Head: Normocephalic, atraumatic, no visible or palpable masses, depressions, or scaring. Eyes: conjunctiva clear, sclera non-icteric, no exudates or hemorrhages. Near sighted. Heart: Regular rate and rhythm Lungs: Clear to auscultation. No rales, wheeze, or rhonchi Abdomen: No tenderness, guarding or rigidity. Back: Right nephrostomy tube in place. Left nephrostomy tube in place. Extremities: No amputations or deformities, cyanosis, edema or varicosities, peripheral pulses intact. Perm Hemodialysis catheter in place at right subclavian jugular vein. Neurologic: Alert and oriented x 3, chorea like movements decreased. Unclear speech at baseline due to missing of upper dental plate. Objective Labs 05/30/25 04:37 05/30/25 04:37 Labs: Laboratory Results - last 24 hr 05/27/25 05/28/25 19:20 04:01 WBC 12.6 H RBC 3.17 L Hgb 9.4 L Hct 30.0 L MCV 95 MCH 29.7 MCHC 31.3 RDW Std Deviation 46.9 H Plt Count 374 D Neut % (Auto) 76 Lymph % (Auto) 9 L [place] % (Auto) 9 Eos % (Auto) 1 Baso % (Auto) 1 Neut # (Auto) 9.6 H Lymph # (Auto) 1.2 [place] # (Auto) 1.1 H Eos # (Auto) 0.2 Baso # (Auto) 0.1 Immature Gran # (Auto) 0.53 H Absolute Nucleated RBC 0.02 H Immature Gran % 4 H Nucleated RBC % 0 Sodium 140 Potassium 4.2 Chloride 101 Carbon Dioxide 27.6 Anion Gap 11 BUN 52 H Creatinine 2.8 H D Estim Creat Clear Calc 24.8 L eGFR 25 L BUN/Creatinine Ratio 19 Glucose 108 H Calculated Osmolality 294 Calcium 8.5 Corrected Calcium 9.1 Phosphorus 4.0 Magnesium 1.9 Total Bilirubin 0.2 L AST 17 ALT 24 Alkaline Phosphatase 103 Total Protein 6.2 Albumin 3.3 L Globulin 2.9 Albumin/Globulin Ratio 1.1 L CSF Appearance Clear CSF Color Colorless CSF WBC 2.2 CSF RBC 2.2 CSF Cell Count Tube # Tube # 4 CSF Mononuclear WBCs 50 CSF Polynuclear WBCs 50 CSF Glucose 69 CSF Total Protein 36 H Random Vancomycin 18.8 Misc Test Result Cancelled Quality Measures Quality Measures VTE prophylaxis (SCDs) Assessment & Plan Assessment Current Active Medications: Generic Name Dose Route Start Last Admin Trade Name Freq PRN Reason Stop Dose Admin Acetaminophen 650 mg 05/16/25 10:21 05/28/25 09:08 Acetaminophen 325 Mg Tablet PO 06/15/25 10:20 650 mg Q6H PRN Administration Fever >100.4 or pain Protocol Heparin Sodium (Porcine) 3,300 unit 05/22/25 09:52 05/27/25 11:34 Heparin Sod Inj 1000 Unit/Ml Vial 10 Ml INDWELLCAT 06/05/25 09:51 3,300 unit X1 PRN Administration DIALYSIS Albumin Human 25 gm in 100 mls @ 100 mls/min 05/27/25 08:56 Albuminar-25 Ivpb IV PRN PRN DIALYSIS Melatonin 3 mg 05/22/25 22:27 05/24/25 22:09 Melatonin 3 Mg Tablet PO 06/22/25 20:59 3 mg HS PRN Administration insomnia Ondansetron HCl 4 mg 05/16/25 10:21 Ondansetron Inj 2 Mg/Ml Inj 2 Ml IVP 06/15/25 10:20 Q6H PRN NAUSEA OR VOMITING Protocol Pantoprazole Sodium 40 mg 05/26/25 09:00 05/28/25 09:08 Pantoprazole 40 Mg Tablet PO 06/16/25 08:59 40 mg QDAY SHADY Administration Pharmacy Consult 1 each 05/21/25 10:00 Vancomycin Pharmacy To Dose 1 Each Each IV 06/04/25 09:59 QDAY PRN CONSULT Ropinirole HCl 0.5 mg 05/25/25 22:00 05/28/25 13:34 Ropinirole Hcl 0.25 Mg Tablet PO 06/24/25 21:59 0.5 mg TID SHADY Administration Plan Mr. Meade is a 64M with unknown past medical history presents for ground level fall. Pt is a poor historian, history obtained from at bedside. Pt denies midline tenderness, neck or head injury. Pt has a chorea-like repetitive movement at baseline, which the states started a few weeks ago. US Bladder shows a bladder mass with bilateral hydronephrosis. Admitted for CORINA with creatinine of 6.2. Perm cath inserted at right subclavian vein. Cystoscopy shows bleeding from tumor. Decide to not proceed with pelvic lymph node biopsy per IR team recommendation. Declined x3 for transfer to higher level of care. Spoke with urologist at [facility], recs not to perform radical cystectomy due to pt's condition, may lead to poor outcome/high mortality. Spoke with Dr. Kent, who agrees for high mortality rate if proceed with surgical option at this time. Dr. Carrion recs outpt follow up with his office for further management. Spoke with pt's family and pt, they agree with going to a SNF, but may not able to find him a place in [place] due to pt's insurance. Will have another discussion with pt and pt's family tmr morning. #Bladder mass, likley malignancy #Newly Diagnosed ESRD #acute renal failure 2/2 obstructive uropathy #B/L hydronephrosis CTAP with BL hydronephrosis and bladder mass Solid nodule noted on bladder wall measuring 2.8 x 1.9 x 1.4cm US, bladder mass, and R severe hydronephrosis Nephrology consulted: perm cath at right subclavian, Irrigate viveros if has clot retention, at this time not a good candidate for surgical intervention, repeat kidney US on 05/23 shows severe right hydronephrosis still. IR recommends to not proceed with pelvic lymph node biopsy due to location and size of lymph node NM renal scan shows no renal function. 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 Spoke with Dr. Kent who also agrees with high mortality rate for surgical intervention, recs oncology consultation. Right nephrostomy tube replaced 05/27/25 - Daily CMP, trend electrolyte. - ID consulted appreciate recs: cont IV abx. 05/31 - HD per nephrology recommendation - strict I/O - renal dose medication - Bilateral nephrostomy tube in place. keep due to urology needs - viveros catheter in place, if not draining okay to manually irrigate per urology. - Outpt follow up for further management with oncology, Dr. Carrion. #GPC bacteremia vs contamination - Staph epi #GPC vs GNR pneumonia CT chest on 05/19 shows significant bibasilar pneumonia, WBC now wnl Initial elevated ESR, prolactin, CRP, likely due to poor renal function and tumor mass 2/2 Bcx on 05/20 grows GPC.- staph epi Repeat 05/21 Bcx shows no growth ECHO no vegitations, EF 50-55% - d/c Rocephin 1g QD and doxycycline 100mg BID - Continue vancomycin per ID recs, pharmacy to dose. 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 Oncology consulted: Tumor markers: CA 19-9 elevated. CEA elevated, PSA negative. Neuro consulted: clonazepam, ok for anticholinergic meds, valbenazine or deutrabenozine (not available on formulary). Neurology consulted: LP on 05/27 for workup on paraneoplastic or autoimmune encephalitis. Ok to discharge from neurology perspective. - Continue Ropinirole 0.25mg to 0.5mg TID #Anemia of chronic disease Concerns for bleeding at tumor site bladder, - A unit of blood was transfused during dialysis on 05/22, post transfusion h/h 08/29 - Retacrit 10,000unit x1 - daily CBC, if falls below 8, consider blood transfusion - EPO given , iron panel. #Hyperparathyroidism PTH 370.5. Ca 8.6 likely secondary to renal failure - follow up out patient Dispo: cont iv abx for bacteremia, tardive dyskinesia vs chorea movements persist DVT prophylaxis: SCDs GI prophylaxis: Protonix 40 IV Diet: Renal Diet Lines: Peripheral IV, viveros catheter, bilateral nephrostomy tube in place, R IJ perm catheter Code status: Full code Case discussed with my senior resident Dr. Rojas Case discussed with my attending Dr. Joselo Kirk, PGY-1
[2025-05-28] MEDS: MELATONIN 3 MG TABLET PO (21:36)
[2025-05-29] VITALS (7 sets, daily range): BP systolic 99–119; BP diastolic 57–73; PULSE 77–94; RESP 16–18; TEMP 36.6–36.8; O2SAT 95–99; BMI 18.2; BMI 17.4
[2025-05-29 05:32] LABS: Basophils # (Auto) 0.1 Thou/mm3 (0.0-0.2); Basophils % (Auto) 1 % (0-2.5); Eosinophils # (Auto) 0.1 Thou/mm3 (0.0-0.5); Eosinophils % (Auto) 1 % (0-10); Hematocrit 30.6 % (41.0-53.0); Hemoglobin 9.4 g/dL (13.5-16.0); Immature Granulocytes Auto 0.26 Thou/mm3 (0.00-0.00); Lymphocytes # (Auto) 0.9 Thou/mm3 (1.0-4.8); Lymphocytes % (Auto) 7 % (10-50); Mean Corpuscular HGB Conc 30.7 g/dl (31.0-37.0); Mean Corpuscular Hemoglobin 29.0 pg (25.0-35.0); Mean Corpuscular Volume 94 fL (80-100); Monocytes # (Auto) 1.0 Thou/mm3 (0.0-0.8); Monocytes % (Auto) 9 % (0-12); Neutrophils # (Auto) 9.8 Thou/mm3 (1.8-7.7); Neutrophils % (Auto) 81 % (37-80); Nucleated Red Blood Cell # 0.00 Thou/mm3 (0.00-0.00); Nucleated Red Blood Cell % 0 /100 WBC (0); Platelet Count 382 Thou/mm3 (140-440); RDW Standard Deviation 46.4 fL (35.1-43.9); Red Blood Count 3.24 Miln/mm3 (4.50-5.90); White Blood Count 12.2 Thou/mm3 (3.8-10.6)
[2025-05-29 05:47] LABS: Alanine Aminotransferase 21 U/L (10-49); Albumin, Serum 3.4 gm/dL (3.4-4.8); Albumin/Globulin Ratio 1.1 (1.2-2.2); Alkaline Phosphatase 107 U/L (46-116); Anion Gap 12 (7-16); Aspartate Amino Transferase 13 U/L (0-34); BUN/Creatinine Ratio 18 Ratio (12-20); Bilirubin,Total 0.3 mg/dL (0.3-1.2); Blood Urea Nitrogen 59 mg/dL (9-23); Calcium 8.8 mg/dL (8.3-10.6); Calcium (Corrected) 9.3 mg/dL (8.5-10.1); Carbon Dioxide 26.4 mMol/L (20.0-31.0); Chloride 101 mMol/L (98-107); Creatinine (Component) 3.2 mg/dL (0.6-1.3); Estimated Creatinine Clearance 22.5 mL/min (>60); Globulin 3.0 gm/dL (2.3-3.5); Glucose 110 mg/dL (74-106); Magnesium 1.7 mg/dL (1.6-2.6); Osmolality,Calculated 295 (275-295); Phosphorous 3.8 mg/dL (2.4-5.1); Potassium 4.2 mMol/L (3.4-5.1); Sodium 139 mMol/L (136-145); Total Protein 6.4 gm/dL (5.7-8.2); Vancomycin,Random 13.4 mcg/mL; eGFR 21 See Note
--- NOTE | 2025-05-29 07:35 | PD.RESPRO ---
Documentation for date of: 05/29/25 Subjective Subjective Interval history: Patient evaluated at bedside, reports no new symptoms. States that he feels better today and less restless. His dyskinetic movements have improved but not completely resolved. Exam Vital Signs Temp Pulse Resp BP Pulse Ox O2 Del Method O2 Flow Rate 98.0 F 84 17 99/57 L 96 Room Air 3 05/29/25 04:00 05/29/25 04:00 05/29/25 04:00 05/29/25 04:00 05/29/25 04:00 05/29/25 04:00 05/27/25 16:00 Narrative Exam General: No acute distress, well nourished Eye: PERRL, EOMI, normal conjunctiva, no scleral icterus HENT: Normocephalic, atraumatic, hearing intact to conversation at normal volume, moist oral mucosa. Patient does not have upper teeth Neck: Supple, non-tender, no JVD, no lymphadenopathy Lungs: Non-labored respirations, symmetric chest rise Heart: Peripheral pulses intact bilaterally Abdomen: Soft, non-tender, non-distended Musculoskeletal: Normal range of motion and strength Skin: Skin is warm, dry, no rashes or lesions. Psychiatric: Cooperative, appropriate mood and affect Neurologic: Mental status: Orientation: AOx3 Communication: Patient is cooperative and can follow simple instructions Language: Speech somewhat difficult to understand as patient's upper teeth removed previously, normal rate and volume. No word finding difficulties appreciated on exam Cranial nerves: CN II: Visual esquivel intact CN III: Pupils equal, round, and reactive to light CN III, IV, : No gaze deviation, no nystagmus Horizontal pursuit: intact Vertical pursuit: intact Ptosis: none CN V: Facial sensation to light touch intact bilaterally at the forehead, cheeks, and jaw line CN VII: Face symmetric, no facial droop appreciated CN VIII: Able to hear and respond to conversation at normal volume, intact to finger rub CN IX, X: Palate elevation symmetric, uvula midline CN XI: Head turn and shoulder shrug strong, symmetric bilaterally CN XII: Normal tongue protrusion without deviation, no fasciculations Motor: Normal tone Generalized muscle atrophy appreciated Abnormal movements appreciated in in all extremities improved Muscle strength: Shoulder abduction: R 5/5 L 5/5 Elbow flexion: R 5/5 L 5/5 Elbow extension: R 5/5 L 5/5 Hip flexion: R 5/5 L 5/5 Hip extension: R 5/5 L 5/5 Knee flexion: R 5/5 L 5/5 Knee extension: R 5/5 L 5/5 Sensory: RUE: Light touch intact LUE: Light touch intact RLE: Light touch intact LLE: Light touch intact Reflexes: Biceps (C5-6): R 2+ L 2+ Brachioradialis (C5-6): R 2+ L 2+ Triceps (C7-8): R 2+ L 2+ Patellae (L3-4): R 2+ L 2+ Achilles (S1-2):R 2+ L 2+ Objective Labs 05/30/25 04:37 05/30/25 04:37 Labs: Laboratory Results - last 24 hr 05/28/25 05/29/25 04:01 04:20 WBC 12.2 H RBC 3.24 L Hgb 9.4 L Hct 30.6 L MCV 94 MCH 29.0 MCHC 30.7 L RDW Std Deviation 46.4 H Plt Count 382 Neut % (Auto) 81 H Lymph % (Auto) 7 L [place] % (Auto) 9 Eos % (Auto) 1 Baso % (Auto) 1 Neut # (Auto) 9.8 H Lymph # (Auto) 0.9 L [place] # (Auto) 1.0 H Eos # (Auto) 0.1 Baso # (Auto) 0.1 Immature Gran # (Auto) 0.26 H Absolute Nucleated RBC 0.00 Immature Gran % 2 H Nucleated RBC % 0 Sodium 139 Potassium 4.2 Chloride 101 Carbon Dioxide 26.4 Anion Gap 12 BUN 59 H Creatinine 3.2 H Estim Creat Clear Calc 22.5 L eGFR 21 L BUN/Creatinine Ratio 18 Glucose 110 H Calculated Osmolality 295 Calcium 8.8 Corrected Calcium 9.3 Phosphorus 4.0 3.8 Magnesium 1.9 1.7 Total Bilirubin 0.3 AST 13 ALT 21 Alkaline Phosphatase 107 Total Protein 6.4 Albumin 3.4 Globulin 3.0 Albumin/Globulin Ratio 1.1 L Random Vancomycin 13.4 Quality Measures Quality Measures VTE prophylaxis (SCDs) Assessment & Plan Assessment Current Active Medications: Generic Name Dose Route Start Last Admin Trade Name Freq PRN Reason Stop Dose Admin Acetaminophen 650 mg 05/16/25 10:21 05/28/25 21:36 Acetaminophen 325 Mg Tablet PO 06/15/25 10:20 650 mg Q6H PRN Administration Fever >100.4 or pain Protocol Carbamazepine 200 mg 05/28/25 22:00 05/29/25 05:12 Carbamazepine 100 Mg Chew PO 06/27/25 21:59 200 mg TID SHADY Administration Heparin Sodium (Porcine) 3,300 unit 05/22/25 09:52 05/27/25 11:34 Heparin Sod Inj 1000 Unit/Ml Vial 10 Ml INDWELLCAT 06/05/25 09:51 3,300 unit X1 PRN Administration DIALYSIS Albumin Human 25 gm in 100 mls @ 100 mls/min 05/27/25 08:56 Albuminar-25 Ivpb IV PRN PRN DIALYSIS Vancomycin/Sodium Chloride 100 mls @ 120 mls/hr 05/29/25 13:00 Vancomycin/Ns 500 Mg Ivpb IV 05/29/25 13:49 X1 ONE Magnesium Sulfate 4 gm in 50 mls @ 12.5 mls/hr 05/29/25 07:33 Magnesium Sulfate Ivpb IV 05/29/25 11:32 X1 ONE Melatonin 3 mg 05/22/25 22:27 05/28/25 21:36 Melatonin 3 Mg Tablet PO 06/22/25 20:59 3 mg HS PRN Administration insomnia Ondansetron HCl 4 mg 05/16/25 10:21 Ondansetron Inj 2 Mg/Ml Inj 2 Ml IVP 06/15/25 10:20 Q6H PRN NAUSEA OR VOMITING Protocol Pantoprazole Sodium 40 mg 05/26/25 09:00 05/28/25 09:08 Pantoprazole 40 Mg Tablet PO 06/16/25 08:59 40 mg QDAY SHADY Administration Pharmacy Consult 1 each 05/21/25 10:00 Vancomycin Pharmacy To Dose 1 Each Each IV 06/04/25 09:59 QDAY PRN CONSULT Plan # Abnormal movements, present on admission # Word-finding difficulty, present on admission # Previous falls Abnormal movements improved after nephrostomy tube placement and hemodialysis. Patient comprehension, repetition, naming intact. No aphasia appreciated on exam. No focal neuro deficit appreciated Pt denies hx of psychiatric medications No symptom improvement with clonazepam trial, Ropinirol 0.5 mg TID Valbenazine/deutetrabenazine nonformulary/not available in this hospital MRI brain w/o 05/20: no acute hemorrhage. Moderate chronic microvascular white matter changes. Prominent atrophy. No focal metastases. TTE 05/23: LVEF 50-55%, no vegetations CSF: WBC 2.2, RBC 2.2, monocytes 50%, polynucleocytes 50%, glucose 69, protein 36 high. CSF protein is not high enough to suggest therapies including IV steroids/IVIG will be neeeded at this time. DDX: tardive dyskinesia, akathisia, azotemia, infection, paraneoplastic, restless leg syndrome, Michael's disease Improved dyskinetic movements with carbamazepine Plan: - Continue Carbamazepine 200 mg TID. Monitor for hyponatremia - Pending serum copper, ceruloplasmin, urinary copper - Pending CSF analysis for autoimmune encephalitis/paraneoplastic process (NMDA receptor Ab, LGI1 Ab, anti-Hu Ab, anti-Yo Ab) (VDRL, WNV, cocci, HSV) - F/U outpatient for lab results and further management - OK to discharge from neurological perspective #Newly Diagnosed ESRD #CORINA intrarenal vs Post obstructive uropathy #B/L hydronephrosis #Bladder mass #Pneumonia #CAUTI vs Catheter-related bloodstream infection #2/2 BCx GPC #Anemia of chronic disease #Hyperparathyroidism Plan: - Management per primary Plan discussed with Dr. Cande Dyson, PGY1 Attending Provider Attestation/Addendum Patient was seen and examined at the bedside and I agreed with resident's, assessment and plan of care. His abnormal involuntary movements have slowed down in the last 4 hours and he feels better. Will continue with the Tegretol 200 mg 3 times daily and follow-up with the rest of the CSF analysis as it becomes available as an outpatient.
[2025-05-29] MEDS: PANTOPRAZOLE 40 MG TABLET PO (08:14)
[2025-05-29] MEDS: Magnesium Sulfate 4 GM Ivpb 4 GM/50 ML BAG IV (09:29)
--- NOTE | 2025-05-29 10:05 | PD.RESPRO ---
Documentation for date of: 05/29/25 Subjective Subjective Interval history: Amarjit Meade is a 62-year-old male with no past medical history presented for mechanical fall at work. States that he fell forward because his lower back has been giving out for the past few months. He has also been having chorea-like, jerky movements for the past few months and is supposed to see neurology but is having insurance issues. Has not seen a physician in many years. Per , patient has been having enuresis for the past few weeks and claims patient is stubborn and does not want to see a physician. Patient's urine is normally green due to vitamin supplements. Patient admits that he does not drink very much water nor does he urinate very much. Denies pain on urination, increase in urinary urgency, frequency or hesitancy, interrupted stream, any history of prostate issues, flank pain, or recent weight loss. Denies fever, chills, shortness of breath or chest pain. Denies family history of any kidney disease or dialysis. 05/23/25: Patient seen and examined at bedside with . Has a very mild headache. Araiza bag still bloody. Cr 3.1, BUN 38. Continues to have some word finding difficulty even though choreiform movements have improved. 05/24/25: Patient seen and examined in dialysis. No complaints. Araiza bag is less bloody. Social work reports patient will be getting [employer] on Tuesday. Cr 3.6 and BUN 38. Denies chest pain, SOB or fever. 05/25/2025 Marisabel at bedside. Patient continues to have some restlessness, confusion and speech problems. Neurology was consulted. Dr Castellon was called-recommended to continue with ropinirole. She is planning to do possible LP on Tuesday if no improvement. MRI showed no acute stroke. Patient so far received 4 dialysis sessions. [employer] form movements improved markedly although his speech problem remains. Marisabel Able to get him insurance. Spoke to Dr. Hernandez-patient seems to have aggressive bladder cancer causing significant hydronephrosis and pain. Right nephrostomy tube not draining any urine. Will try to reposition on Tuesday. Spoke to primary team to start the transfer to higher level of care for cystectomy and ileal conduit. and patient had several questions which were answered to their satisfaction. Time spent today more than 40 minutes. 05/26/2025: Patient seen and examined at bedside with . Reports difficulty sleeping due to restlesseness in which Dr. Castellon to 0.5 mg TID and to consider doing LP on Tuesday to evaluate further if persists. Social work was able to get him insurance. Rt nephrostomy tube still not draining urine and plan to reposition Tuesday. BUN 61 and Cr 3.1. 05/27/2025: Patient seen and examined in dialysis. No new complaints and reports tolerating dialysis well. Plan for Rt nephrostomy tube replacement. Lt nephrostomy draining clear urine. Araiza bag bloody, however less than yesterday. BUN 77 and Cr 3.3. 05/28/2025: Patient seen and examined at bedside. Reports feeling well, denies abdominal pain or back pain. Bilateral nephrostomy tubes draining R>L, as R replaced yesterday. Araiza bag mild hematuria. Cr and BUN improving 2.8 and 52 respectively. Plan for discharge today with nephrostomy tubes and as patient has outpatient dialysis chair scheduled T/R/S [id number]. Multiple transfers denied and pt recommended to follow up with [facility] resident clinic for outpatient primary care, f/u of LP and biopsy results, as well as coordination with outpatient specialists. 05/29/2025: Patient seen and examined at bedside. No new complaints. Both nephrostomy tubes draining clear urine. Araiza bag minimal urine at the time of interview and slight blood. Cr 3.2 and BUN 59, stable. HD schedule is T/R/S and if patient has not yet been discharged, will do HD inpatient tomorrow. Exam Vital Signs Temp Pulse Resp BP Pulse Ox O2 Del Method O2 Flow Rate 97.9 F 84 16 102/73 97 Room Air 3 05/29/25 08:00 05/29/25 08:00 05/29/25 08:00 05/29/25 08:00 05/29/25 08:00 05/29/25 08:00 05/27/25 16:00 Narrative Exam GENERAL APPEARANCE: Thin, temporal wasting noted, appears older than stated age NECK: Neck supple, no JVD or bruit CARDIOVASCULAR: Heart regular, no murmurs LUNGS/CHEST: Chest clear to auscultation. No rales, rhonchi, wheezing ABDOMEN: Soft, mild discomfort noted in the lower abdomen, hard bladder. Normal bowel sounds. b/l draining nephrostomy tubes in place EXTREMITIES: No edema, clubbing or cyanosis. SKIN: Skin exam normal without any rashes. IJ dialysis catheter in place NEUROLOGICAL : Able to move his extremities. Noted speech impairment. Objective Labs 05/30/25 04:37 05/30/25 04:37 Labs: Laboratory Results - last 24 hr 05/29/25 04:20 WBC 12.2 H RBC 3.24 L Hgb 9.4 L Hct 30.6 L MCV 94 MCH 29.0 MCHC 30.7 L RDW Std Deviation 46.4 H Plt Count 382 Neut % (Auto) 81 H Lymph % (Auto) 7 L Slope % (Auto) 9 Eos % (Auto) 1 Baso % (Auto) 1 Neut # (Auto) 9.8 H Lymph # (Auto) 0.9 L Slope # (Auto) 1.0 H Eos # (Auto) 0.1 Baso # (Auto) 0.1 Immature Gran # (Auto) 0.26 H Absolute Nucleated RBC 0.00 Immature Gran % 2 H Nucleated RBC % 0 Sodium 139 Potassium 4.2 Chloride 101 Carbon Dioxide 26.4 Anion Gap 12 BUN 59 H Creatinine 3.2 H Estim Creat Clear Calc 22.5 L eGFR 21 L BUN/Creatinine Ratio 18 Glucose 110 H Calculated Osmolality 295 Calcium 8.8 Corrected Calcium 9.3 Phosphorus 3.8 Magnesium 1.7 Total Bilirubin 0.3 AST 13 ALT 21 Alkaline Phosphatase 107 Total Protein 6.4 Albumin 3.4 Globulin 3.0 Albumin/Globulin Ratio 1.1 L Random Vancomycin 13.4 Quality Measures Quality Measures VTE prophylaxis (SCDs) Assessment & Plan Assessment Current Active Medications: Generic Name Dose Route Start Last Admin Trade Name Freq PRN Reason Stop Dose Admin Acetaminophen 650 mg 05/16/25 10:21 05/28/25 21:36 Acetaminophen 325 Mg Tablet PO 06/15/25 10:20 650 mg Q6H PRN Administration Fever >100.4 or pain Protocol Carbamazepine 200 mg 05/28/25 22:00 05/29/25 05:12 Carbamazepine 100 Mg Chew PO 06/27/25 21:59 200 mg TID SHADY Administration Heparin Sodium (Porcine) 3,300 unit 05/22/25 09:52 05/27/25 11:34 Heparin Sod Inj 1000 Unit/Ml Vial 10 Ml INDWELLCAT 06/05/25 09:51 3,300 unit X1 PRN Administration DIALYSIS Albumin Human 25 gm in 100 mls @ 100 mls/min 05/27/25 08:56 Albuminar-25 Ivpb IV PRN PRN DIALYSIS Vancomycin/Sodium Chloride 100 mls @ 120 mls/hr 05/29/25 13:00 Vancomycin/Ns 500 Mg Ivpb IV 05/29/25 13:49 X1 ONE Magnesium Sulfate 4 gm in 50 mls @ 12.5 mls/hr 05/29/25 07:33 05/29/25 09:29 Magnesium Sulfate Ivpb IV 05/29/25 11:32 12.5 mls/hr X1 ONE Administration Melatonin 3 mg 05/22/25 22:27 05/28/25 21:36 Melatonin 3 Mg Tablet PO 06/22/25 20:59 3 mg HS PRN Administration insomnia Midodrine 5 mg 05/29/25 10:03 Midodrine 5 Mg Tablet PO 06/28/25 13:59 TID PRN sbp < 110 Ondansetron HCl 4 mg 05/16/25 10:21 Ondansetron Inj 2 Mg/Ml Inj 2 Ml IVP 06/15/25 10:20 Q6H PRN NAUSEA OR VOMITING Protocol Pantoprazole Sodium 40 mg 05/26/25 09:00 05/29/25 08:14 Pantoprazole 40 Mg Tablet PO 06/16/25 08:59 40 mg QDAY SHADY Administration Pharmacy Consult 1 each 05/21/25 10:00 Vancomycin Pharmacy To Dose 1 Each Each IV 06/04/25 09:59 QDAY PRN CONSULT Plan Amarjit Meade is a 62-year-old male with no past medical history presented for mechanical fall at work due to chorea-like movements, found to have Cr 6.2 and BUN 92 with bladder mass and advanced hydronephrosis. #Obstructive uropathy 2/2 bladder mass causing #Bilateral hydronephrosis s/p b/l nephrostomy tubes 05/17 #CORINA Patient has no history of kidney disease or any recent lab values to compare. ~30 pack year, quit 04/2025. Reports new enuresis for the past few weeks and jerky movements for a few months, latter ddx likely uremic origin with improvement in movement post dialysis. Likely obstrutive uropathy from bladder cancer causing CORINA on CKD vs ESRD. CT abd pelvis showed advanced b/l hydronephrosis, extensive abdominal and pelvic lymphadenopathy, distended urinary bladder with marked irregular bladder wall thickening, enzo posteriorly most consistent with bladder cancer. NM renal scan showed no renal fx with minimal flow to Lt kidney and reduced flow to Rt kidney; however GFR slowly improving with good urine output s/p nephrostomy tubes and alleviation of hydronephrotic pressure, thus hoping for a renal recovery, whereas ESRD is irreversible with no recovery Nephrostomy tubes: b/l placed 05/17, L fell out 05/19, L replaced 05/20, R replaced 05/21 and 05/27 Perm cath inserted 05/21 Received HD 05/18, 05/19, 05/20, 05/22, 05/24, 05/27 Cystoscopy 05/22 showed large prostate and very large bladder tumor occupying both ureteral orifices, tumor resected with bleeding stopped with fulguration, biopsy taken and sent to [facility] Renal US showed severe right hydronephrosis, L hydronephrosis much improved. Patient needs transfer to higher level of care, but has been denied transfer to 3 locations. Plan: -HD outpatient T/R/S -Pending biopsy results from [facility] -Can be d/c to SNF or with home health from nephrology standpoint in management of nephrostomy tubes -Araiza can be discontinued per urology -Follow up with outpatient oncology and urology #Chorea movements-better #Normocytic anemia #Hyperparathyroidism -Management per primary team. Plan discussed with nephrology attending Dr. Esther Matamoros, DO Internal Medicine PGY-1 Attending Provider Attestation/Addendum Patient seen and examined with resident physician Dr. Matamoros. Note reviewed, agree with findings and recommendations. Marisabel at bedside. Patient more alert and awake today. Admitted with CORINA secondary to obstructive uropathy. Patient had cystoscopy-showed large bladder tumor. Biopsy was taken. Spoke to Dr. Hernandez-patient needs to go to tertiary care center for large aggressive bladder tumor. 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 Outpatient dialysis also should be arranged. Spoke to primary team. Despite bilateral nephrostomy tubes-repeat renal ultrasound showed a large right hydronephrosis. s/p right nephrostomy tube exchange. Dr. Carrion was consulted per Dr. Hernandez's request. Bladder biopsy showed aggressive bladder cancer. Plan of care discussed with primary team. Transferred held patient needs outpatient hematology consultation. Next dialysis scheduled for tomorrow pending labs. Hope there will be renal recovery as patient is making more than 2 L of urine. Discharge planning per primary team to rehab.
--- NOTE | 2025-05-29 12:26 | PC.SS ---
Addendum entered by Michelle Zafar 05/29/25 14:21: SS follow up note; All Acute Rehab facilities declined patient. Patient's [employer] is pending, however can take some time for it to be active. SS spoke to Mariza from [facility] and she informed SS she would run patient's medical and contact SS. SS will stand by for further needs. Patient is pending HH to be established. Original Note: SS follow up note; SS sent acute rehab inquiry through [facility], if no acute rehab follows patient, then patient will need to be followed home with [facility]. SS spoke to Kaitlin and she informed SS that they are able to follow patient. SS will follow up with [facility]. SS will stand by for further needs.
[2025-05-29] MEDS: VANCOMYCIN/NS 500 MG IVPB 100 ML 120 MG IV (12:49)
--- NOTE | 2025-05-29 12:57 | ESPR_ITS ---
<Statement entered by Lachelle Josue MD - 06/01/25 12:39> I reviewed above note and agree with findings and plans. I have also personally examined the patient with medicine team and went over assessment and plan with medical team including undergraduate intern and resident physician. <Statement entered by Abhay Rojas MD - 05/29/25 17:09> Patient was seen and examined at the bedside. No acute overnight events were reported. Neurology recommended to start the patient on carbamazepine 200 mg 3 times a day and pending on neurology clearance. Patient needs to continue on vancomycin for 2 more days to complete course of antibiotic for bacteremia. Working up for home health orders. mountain services manager are aware. Patient's family is aware. Will keep the Viveros catheter in as patient is still having urine in the bladder despite putting out in nephrostomy tubes. All labs and orders were reviewed. I discussed and supervised with the undergraduate intern physician who took care of this patient. I personally saw and examined the patient. I agree with most of the assessment and plan. Disclaimer: Despite multiple revisions, due to the dictation software being used, the document bellow may not be free of grammatical errors including phonetic/typographic errors. However, this does not deter from our commitment to providing health care in the patient's best interest in mind. Plan of care discussed with attending Physician Dr. Joselo Rojas MD PGY-3 Documentation for date of: 05/29/25 Subjective Subjective Interval history: No overnight events. Evaluated at bedside. Neurology starting pt on Carbamazepine 200 mg TID. Pending final neuro recommendation. Exam Vital Signs Temp Pulse Resp BP Pulse Ox O2 Del Method O2 Flow Rate 97.8 F 86 18 108/66 99 Room Air 3 05/29/25 12:05/29/25 12:05/29/25 12:05/29/25 12:05/29/25 12:05/29/25 12:05/27/25 16:00 Narrative Exam General: malnourished, frail in no distress. Oriented x 3. Afebrile. Skin: No rash, unusual bruising or prominent lesions Head: Normocephalic, atraumatic, no visible or palpable masses, depressions, or scaring. Eyes: conjunctiva clear, sclera non-icteric, no exudates or hemorrhages. Near sighted. Heart: Regular rate and rhythm Lungs: Clear to auscultation. No rales, wheeze, or rhonchi Abdomen: No tenderness, guarding or rigidity. Back: Right nephrostomy tube in place. Left nephrostomy tube in place. Extremities: No amputations or deformities, cyanosis, edema or varicosities, peripheral pulses intact. Perm Hemodialysis catheter in place at right subclavian jugular vein. Neurologic: Alert and oriented x 3, chorea like movements decreased. Unclear speech at baseline due to missing of upper dental plate. Objective Labs 05/30/25 04:37 05/30/25 04:37 Labs: Laboratory Results - last 24 hr 05/29/25 04:20 WBC 12.2 H RBC 3.24 L Hgb 9.4 L Hct 30.6 L MCV 94 MCH 29.0 MCHC 30.7 L RDW Std Deviation 46.4 H Plt Count 382 Neut % (Auto) 81 H Lymph % (Auto) 7 L Bacon % (Auto) 9 Eos % (Auto) 1 Baso % (Auto) 1 Neut # (Auto) 9.8 H Lymph # (Auto) 0.9 L Bacon # (Auto) 1.0 H Eos # (Auto) 0.1 Baso # (Auto) 0.1 Immature Gran # (Auto) 0.26 H Absolute Nucleated RBC 0.00 Immature Gran % 2 H Nucleated RBC % 0 Sodium 139 Potassium 4.2 Chloride 101 Carbon Dioxide 26.4 Anion Gap 12 BUN 59 H Creatinine 3.2 H Estim Creat Clear Calc 22.5 L eGFR 21 L BUN/Creatinine Ratio 18 Glucose 110 H Calculated Osmolality 295 Calcium 8.8 Corrected Calcium 9.3 Phosphorus 3.8 Magnesium 1.7 Total Bilirubin 0.3 AST 13 ALT 21 Alkaline Phosphatase 107 Total Protein 6.4 Albumin 3.4 Globulin 3.0 Albumin/Globulin Ratio 1.1 L Random Vancomycin 13.4 Quality Measures Quality Measures VTE prophylaxis (SCDs) Assessment & Plan Assessment Current Active Medications: Generic Name Dose Route Start Last Admin Trade Name Freq PRN Reason Stop Dose Admin Acetaminophen 650 mg 05/16/25 10:21 05/28/25 21:36 Acetaminophen 325 Mg Tablet PO 06/15/25 10:20 650 mg Q6H PRN Administration Fever >100.4 or pain Protocol Carbamazepine 200 mg 05/28/25 22:00 05/29/25 05:12 Carbamazepine 100 Mg Chew PO 06/27/25 21:59 200 mg TID SHADY Administration Heparin Sodium (Porcine) 3,300 unit 05/22/25 09:52 05/27/25 11:34 Heparin Sod Inj 1000 Unit/Ml Vial 10 Ml INDWELLCAT 06/05/25 09:51 3,300 unit X1 PRN Administration DIALYSIS Albumin Human 25 gm in 100 mls @ 100 mls/min 05/27/25 08:56 Albuminar-25 Ivpb IV PRN PRN DIALYSIS Vancomycin/Sodium Chloride 100 mls @ 120 mls/hr 05/29/25 13:00 05/29/25 12:49 Vancomycin/Ns 500 Mg Ivpb IV 05/29/25 13:49 120 mls/hr X1 ONE Administration Melatonin 3 mg 05/22/25 22:27 05/28/25 21:36 Melatonin 3 Mg Tablet PO 06/22/25 20:59 3 mg HS PRN Administration insomnia Midodrine 5 mg 05/29/25 10:03 Midodrine 5 Mg Tablet PO 06/28/25 13:59 TID PRN sbp < 110 Ondansetron HCl 4 mg 05/16/25 10:21 Ondansetron Inj 2 Mg/Ml Inj 2 Ml IVP 06/15/25 10:20 Q6H PRN NAUSEA OR VOMITING Protocol Pantoprazole Sodium 40 mg 05/26/25 09:00 05/29/25 08:14 Pantoprazole 40 Mg Tablet PO 06/16/25 08:59 40 mg QDAY SHADY Administration Pharmacy Consult 1 each 05/21/25 10:00 Vancomycin Pharmacy To Dose 1 Each Each IV 06/04/25 09:59 QDAY PRN CONSULT Plan Mr. Meade is a 64M with unknown past medical history presents for ground level fall. Pt is a poor historian, history obtained from at bedside. Pt denies midline tenderness, neck or head injury. Pt has a chorea-like repetitive movement at baseline, which the states started a few weeks ago. US Bladder shows a bladder mass with bilateral hydronephrosis. Admitted for CORINA with creatinine of 6.2. Perm cath inserted at right subclavian vein. Cystoscopy shows bleeding from tumor. Decide to not proceed with pelvic lymph node biopsy per IR team recommendation. Declined x3 for transfer to higher level of care. Spoke with urologist at [facility], recs not to perform radical cystectomy due to pt's condition, may lead to poor outcome/high mortality. Spoke with Dr. Kent, who agrees for high mortality rate if proceed with surgical option at this time. Dr. Carrion recs outpt follow up with his office for further management. Pending final Neuro recommendation. #Bladder mass, likley malignancy #Newly Diagnosed ESRD #acute renal failure 2/2 obstructive uropathy #B/L hydronephrosis CTAP with BL hydronephrosis and bladder mass Solid nodule noted on bladder wall measuring 2.8 x 1.9 x 1.4cm US, bladder mass, and R severe hydronephrosis Nephrology consulted: perm cath at right subclavian, Irrigate viveros if has clot retention, at this time not a good candidate for surgical intervention, repeat kidney US on 05/23 shows severe right hydronephrosis still. IR recommends to not proceed with pelvic lymph node biopsy due to location and size of lymph node NM renal scan shows no renal function. 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 Spoke with Dr. Kent who also agrees with high mortality rate for surgical intervention, recs oncology consultation. Right nephrostomy tube replaced 05/27/25 - Daily CMP, trend electrolyte. - ID consulted appreciate recs: cont IV abx. 05/31 - HD per nephrology recommendation - strict I/O - renal dose medication - Bilateral nephrostomy tube in place. keep due to urology needs - viveros catheter in place, if not draining okay to manually irrigate per urology. - Outpt follow up for further management with oncology, Dr. Carrion. #GPC bacteremia vs contamination - Staph epi #GPC vs GNR pneumonia CT chest on 05/19 shows significant bibasilar pneumonia, WBC now wnl Initial elevated ESR, prolactin, CRP, likely due to poor renal function and tumor mass 2/2 Bcx on 05/20 grows GPC.- staph epi Repeat 05/21 Bcx shows no growth ECHO no vegitations, EF 50-55% - d/c Rocephin 1g QD and doxycycline 100mg BID - Continue vancomycin per ID recs, pharmacy to dose. 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 Oncology consulted: Tumor markers: CA 19-9 elevated. CEA elevated, PSA negative. Neuro consulted: clonazepam, ok for anticholinergic meds, valbenazine or deutrabenozine (not available on formulary). Neurology consulted: LP on 05/27 for workup on paraneoplastic or autoimmune encephalitis. - Per neurology, D/C Ropinirole, switch to Carbamazepine 200mg TID. Monitor for hyponatremia. Pending final neuro recs #Anemia of chronic disease Concerns for bleeding at tumor site bladder, - A unit of blood was transfused during dialysis on 05/22, post transfusion h/h 08/29 - Retacrit 10,000unit x1 - daily CBC, if falls below 8, consider blood transfusion - EPO given , iron panel. #Hyperparathyroidism Initial PTH 370.5. Ca 8.6 likely secondary to renal failure - follow up out patient Dispo: Pending SNF placement DVT prophylaxis: SCDs GI prophylaxis: Protonix 40 IV Diet: Renal Diet Lines: Peripheral IV, viveros catheter, bilateral nephrostomy tube in place, R IJ perm catheter Code status: Full code Case discussed with my senior resident Dr. Rojas Case discussed with my attending Dr. Joselo Kirk, DO PGY-1
--- NOTE | 2025-05-29 14:07 | PC.SS ---
SS follow up note; SS contacted Renee from [facility] to check status on auth and she informed SS that auth was still pending, SS also attempted to contact [employer] however was unsuccessful, SS left Voicemail with contact number.
[2025-05-29] MEDS: LACTULOSE SYRUP 20 GM/30 ML UDC 10 GM PO (21:01)
[2025-05-30] VITALS: BP 104/54; PULSE 88; RESP 18; TEMP 36.7; O2SAT 98
[2025-05-30 04:00] VITALS: BP 102/69; PULSE 78; PULSE 88; RESP 18; TEMP 36.6; O2SAT 99
[2025-05-30] MEDS: LACTULOSE SYRUP 20 GM/30 ML UDC 10 GM PO ×3 (05:55→21:11)
[2025-05-30 06:11] LABS: Basophils # (Auto) 0.1 Thou/mm3 (0.0-0.2); Basophils % (Auto) 1 % (0-2.5); Eosinophils # (Auto) 0.1 Thou/mm3 (0.0-0.5); Eosinophils % (Auto) 1 % (0-10); Hematocrit 30.0 % (41.0-53.0); Hemoglobin 9.4 g/dL (13.5-16.0); Immature Granulocytes Auto 0.17 Thou/mm3 (0.00-0.00); Lymphocytes # (Auto) 0.9 Thou/mm3 (1.0-4.8); Lymphocytes % (Auto) 7 % (10-50); Mean Corpuscular HGB Conc 31.3 g/dl (31.0-37.0); Mean Corpuscular Hemoglobin 29.2 pg (25.0-35.0); Mean Corpuscular Volume 93 fL (80-100); Monocytes # (Auto) 0.8 Thou/mm3 (0.0-0.8); Monocytes % (Auto) 7 % (0-12); Neutrophils # (Auto) 10.2 Thou/mm3 (1.8-7.7); Neutrophils % (Auto) 83 % (37-80); Nucleated Red Blood Cell # 0.00 Thou/mm3 (0.00-0.00); Nucleated Red Blood Cell % 0 /100 WBC (0); Platelet Count 465 Thou/mm3 (140-440); RDW Standard Deviation 45.7 fL (35.1-43.9); Red Blood Count 3.22 Miln/mm3 (4.50-5.90); White Blood Count 12.3 Thou/mm3 (3.8-10.6)
[2025-05-30 06:13] LABS: Alanine Aminotransferase 19 U/L (10-49); Albumin, Serum 3.6 gm/dL (3.4-4.8); Albumin/Globulin Ratio 1.2 (1.2-2.2); Alkaline Phosphatase 103 U/L (46-116); Anion Gap 10 (7-16); Aspartate Amino Transferase 14 U/L (0-34); BUN/Creatinine Ratio 21 Ratio (12-20); Bilirubin,Total 0.3 mg/dL (0.3-1.2); Blood Urea Nitrogen 68 mg/dL (9-23); Calcium 8.6 mg/dL (8.3-10.6); Calcium (Corrected) 8.9 mg/dL (8.5-10.1); Carbon Dioxide 25.9 mMol/L (20.0-31.0); Chloride 102 mMol/L (98-107); Creatinine (Component) 3.2 mg/dL (0.6-1.3); Estimated Creatinine Clearance 21.5 mL/min (>60); Globulin 3.0 gm/dL (2.3-3.5); Glucose 105 mg/dL (74-106); Magnesium 2.3 mg/dL (1.6-2.6); Osmolality,Calculated 295 (275-295); Phosphorous 4.3 mg/dL (2.4-5.1); Potassium 4.0 mMol/L (3.4-5.1); Sodium 138 mMol/L (136-145); Total Protein 6.6 gm/dL (5.7-8.2); Vancomycin,Random 15.0 mcg/mL; eGFR 21 See Note
--- NOTE | 2025-05-30 07:32 | PD.RESPRO ---
Documentation for date of: 05/30/25 Subjective Subjective Interval history: Patient evaluated at bedside. Reports no new symptoms. Feels less restless and was able to take a nap. Exam Vital Signs Temp Pulse Resp BP Pulse Ox O2 Del Method O2 Flow Rate 97.8 F 88 18 102/69 99 Room Air 3 05/30/25 04:00 05/30/25 04:00 05/30/25 04:00 05/30/25 04:00 05/30/25 04:00 05/30/25 04:00 05/27/25 16:00 Narrative Exam General: No acute distress, well nourished Eye: PERRL, EOMI, normal conjunctiva, no scleral icterus HENT: Normocephalic, atraumatic, hearing intact to conversation at normal volume, moist oral mucosa. Patient does not have upper teeth Neck: Supple, non-tender, no JVD, no lymphadenopathy Lungs: Non-labored respirations, symmetric chest rise Heart: Peripheral pulses intact bilaterally Abdomen: Soft, non-tender, non-distended Musculoskeletal: Normal range of motion and strength Skin: Skin is warm, dry, no rashes or lesions. Psychiatric: Cooperative, appropriate mood and affect Neurologic: Mental status: Orientation: AOx3 Communication: Patient is cooperative and can follow simple instructions Language: Speech somewhat difficult to understand as patient's upper teeth removed previously, normal rate and volume. No word finding difficulties appreciated on exam Cranial nerves: CN II: Visual esquivel intact CN III: Pupils equal, round, and reactive to light CN III, IV, : No gaze deviation, no nystagmus Horizontal pursuit: intact Vertical pursuit: intact Ptosis: none CN V: Facial sensation to light touch intact bilaterally at the forehead, cheeks, and jaw line CN VII: Face symmetric, no facial droop appreciated CN VIII: Able to hear and respond to conversation at normal volume, intact to finger rub CN IX, X: Palate elevation symmetric, uvula midline CN XI: Head turn and shoulder shrug strong, symmetric bilaterally CN XII: Normal tongue protrusion without deviation, no fasciculations Motor: Normal tone Generalized muscle atrophy appreciated Abnormal movements appreciated in in all extremities improved Muscle strength: Shoulder abduction: R 5/5 L 5/5 Elbow flexion: R 5/5 L 5/5 Elbow extension: R 5/5 L 5/5 Hip flexion: R 5/5 L 5/5 Hip extension: R 5/5 L 5/5 Knee flexion: R 5/5 L 5/5 Knee extension: R 5/5 L 5/5 Sensory: RUE: Light touch intact LUE: Light touch intact RLE: Light touch intact LLE: Light touch intact Reflexes: Biceps (C5-6): R 2+ L 2+ Brachioradialis (C5-6): R 2+ L 2+ Triceps (C7-8): R 2+ L 2+ Patellae (L3-4): R 2+ L 2+ Achilles (S1-2):R 2+ L 2+ Objective Labs 05/31/25 04:53 05/31/25 04:53 Labs: Laboratory Results - last 24 hr 05/30/25 04:37 WBC 12.3 H RBC 3.22 L Hgb 9.4 L Hct 30.0 L MCV 93 MCH 29.2 MCHC 31.3 RDW Std Deviation 45.7 H Plt Count 465 H D Neut % (Auto) 83 H Lymph % (Auto) 7 L [place] % (Auto) 7 Eos % (Auto) 1 Baso % (Auto) 1 Neut # (Auto) 10.2 H Lymph # (Auto) 0.9 L [place] # (Auto) 0.8 Eos # (Auto) 0.1 Baso # (Auto) 0.1 Immature Gran # (Auto) 0.17 H Absolute Nucleated RBC 0.00 Immature Gran % 1 H Nucleated RBC % 0 Sodium 138 Potassium 4.0 Chloride 102 Carbon Dioxide 25.9 Anion Gap 10 BUN 68 H Creatinine 3.2 H Estim Creat Clear Calc 21.5 L eGFR 21 L BUN/Creatinine Ratio 21 H Glucose 105 Calculated Osmolality 295 Calcium 8.6 Corrected Calcium 8.9 Phosphorus 4.3 Magnesium 2.3 Total Bilirubin 0.3 AST 14 ALT 19 Alkaline Phosphatase 103 Total Protein 6.6 Albumin 3.6 Globulin 3.0 Albumin/Globulin Ratio 1.2 Random Vancomycin 15.0 Quality Measures Quality Measures VTE prophylaxis (SCDs) Assessment & Plan Assessment Current Active Medications: Generic Name Dose Route Start Last Admin Trade Name Freq PRN Reason Stop Dose Admin Acetaminophen 650 mg 05/16/25 10:21 05/28/25 21:36 Acetaminophen 325 Mg Tablet PO 06/15/25 10:20 650 mg Q6H PRN Administration Fever >100.4 or pain Protocol Carbamazepine 200 mg 05/28/25 22:00 05/30/25 05:55 Carbamazepine 100 Mg Chew PO 06/27/25 21:59 200 mg TID SHADY Administration Heparin Sodium (Porcine) 3,300 unit 05/22/25 09:52 05/27/25 11:34 Heparin Sod Inj 1000 Unit/Ml Vial 10 Ml INDWELLCAT 06/05/25 09:51 3,300 unit X1 PRN Administration DIALYSIS Albumin Human 25 gm in 100 mls @ 100 mls/min 05/27/25 08:56 Albuminar-25 Ivpb IV PRN PRN DIALYSIS Vancomycin/Sodium Chloride 100 mls @ 120 mls/hr 05/30/25 13:00 Vancomycin/Ns 500 Mg Ivpb IV 05/30/25 13:49 X1 ONE Lactulose 10 gm 05/29/25 22:00 05/30/25 05:55 Lactulose Syrup 20 Gm/30 Ml Udc PO 06/28/25 21:59 10 gm TID SHADY Administration Protocol Magnesium Hydroxide 30 ml 05/29/25 18:15 Milk Of Magnesia Susp 30 Ml Udc PO 06/28/25 18:14 QDAY PRN CONSTIPATION Protocol Melatonin 3 mg 05/22/25 22:27 05/28/25 21:36 Melatonin 3 Mg Tablet PO 06/22/25 20:59 3 mg HS PRN Administration insomnia Midodrine 5 mg 05/29/25 10:03 Midodrine 5 Mg Tablet PO 06/28/25 13:59 TID PRN sbp < 110 Ondansetron HCl 4 mg 05/16/25 10:21 Ondansetron Inj 2 Mg/Ml Inj 2 Ml IVP 06/15/25 10:20 Q6H PRN NAUSEA OR VOMITING Protocol Pantoprazole Sodium 40 mg 05/26/25 09:00 05/29/25 08:14 Pantoprazole 40 Mg Tablet PO 06/16/25 08:59 40 mg QDAY SHADY Administration Pharmacy Consult 1 each 05/21/25 10:00 Vancomycin Pharmacy To Dose 1 Each Each IV 05/31/25 09:59 QDAY PRN CONSULT Plan # Abnormal movements, present on admission # Word-finding difficulty, present on admission # Previous falls Abnormal movements improved after nephrostomy tube placement and hemodialysis. Patient comprehension, repetition, naming intact. No aphasia appreciated on exam. No focal neuro deficit appreciated Pt denies hx of psychiatric medications No symptom improvement with clonazepam trial, Ropinirol 0.5 mg TID Valbenazine/deutetrabenazine nonformulary/not available in this hospital MRI brain w/o 05/20: no acute hemorrhage. Moderate chronic microvascular white matter changes. Prominent atrophy. No focal metastases. TTE 05/23: LVEF 50-55%, no vegetations CSF: WBC 2.2, RBC 2.2, monocytes 50%, polynucleocytes 50%, glucose 69, protein 36 high. CSF protein is not high enough to suggest therapies including IV steroids/IVIG will be neeeded at this time. DDX: tardive dyskinesia, akathisia, azotemia, infection, paraneoplastic, restless leg syndrome, Michael's disease Improved dyskinetic movements with carbamazepine Plan: - Continue Carbamazepine 200 mg TID. Monitor for hyponatremia - Pending serum copper, ceruloplasmin, urinary copper - Pending CSF analysis for autoimmune encephalitis/paraneoplastic process (NMDA receptor Ab, LGI1 Ab, anti-Hu Ab, anti-Yo Ab) (VDRL, WNV, cocci, HSV) - F/U outpatient for lab results and further management - OK to discharge from neurological perspective #Bladder mass, likley malignancy #Newly Diagnosed ESRD #acute renal failure 2/2 obstructive uropathy #B/L hydronephrosis #GPC bacteremia vs contamination - Staph epi #GPC vs GNR pneumonia #Anemia of chronic disease #Hyperparathyroidism -Management per primary Plan discussed with Dr. Cande Dyson, PGY1 Attending Provider Attestation/Addendum I personally have seen and examined the patient at the bedside and i agreed with resident's findings, assessment and plan of care. Imp: abnormal choreiform movements continue with Tegretol for now as it has helped. FU with rest of the CSF analysis as they become available as an outpatient. Neurology will sign off for now. He is stable for discharge on current mgt. FU in 2 weeks in my office.
[2025-05-30 08:00] VITALS: BP 111/60; PULSE 77; PULSE 85; RESP 17; TEMP 36.4; O2SAT 97
[2025-05-30] MEDS: PANTOPRAZOLE 40 MG TABLET PO (08:50)
--- NOTE | 2025-05-30 10:51 | ESPR_ITS ---
Documentation for date of: 05/30/25 Subjective Subjective Interval history: Amarjit Meade is a 62-year-old male with no past medical history presented for mechanical fall at work. States that he fell forward because his lower back has been giving out for the past few months. He has also been having chorea-like, jerky movements for the past few months and is supposed to see neurology but is having insurance issues. Has not seen a physician in many years. Per , patient has been having enuresis for the past few weeks and claims patient is stubborn and does not want to see a physician. Patient's urine is normally green due to vitamin supplements. Patient admits that he does not drink very much water nor does he urinate very much. Denies pain on urination, increase in urinary urgency, frequency or hesitancy, interrupted stream, any history of prostate issues, flank pain, or recent weight loss. Denies fever, chills, shortness of breath or chest pain. Denies family history of any kidney disease or dialysis. 05/23/25: Patient seen and examined at bedside with . Has a very mild headache. Araiza bag still bloody. Cr 3.1, BUN 38. Continues to have some word finding difficulty even though choreiform movements have improved. 05/24/25: Patient seen and examined in dialysis. No complaints. Araiza bag is less bloody. Social work reports patient will be getting echoecho on Tuesday. Cr 3.6 and BUN 38. Denies chest pain, SOB or fever. 05/25/2025 Marisabel at bedside. Patient continues to have some restlessness, confusion and speech problems. Neurology was consulted. Dr Castellon was called-recommended to continue with ropinirole. She is planning to do possible LP on Tuesday if no improvement. MRI showed no acute stroke. Patient so far received 4 dialysis sessions. 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 Marisabel Able to get him insurance. Spoke to Dr. Hernandez-patient seems to have aggressive bladder cancer causing significant hydronephrosis and pain. Right nephrostomy tube not draining any urine. Will try to reposition on Tuesday. Spoke to primary team to start the transfer to higher level of care for cystectomy and ileal conduit. and patient had several questions which were answered to their satisfaction. Time spent today more than 40 minutes. 05/26/2025: Patient seen and examined at bedside with . Reports difficulty sleeping due to restlesseness in which Dr. Castellon to 0.5 mg TID and to consider doing LP on Tuesday to evaluate further if persists. Social work was able to get him insurance. Rt nephrostomy tube still not draining urine and plan to reposition Tuesday. BUN 61 and Cr 3.1. 05/27/2025: Patient seen and examined in dialysis. No new complaints and reports tolerating dialysis well. Plan for Rt nephrostomy tube replacement. Lt nephrostomy draining clear urine. Araiza bag bloody, however less than yesterday. BUN 77 and Cr 3.3. 05/28/2025: Patient seen and examined at bedside. Reports feeling well, denies abdominal pain or back pain. Bilateral nephrostomy tubes draining R>L, as R replaced yesterday. Araiza bag mild hematuria. Cr and BUN improving 2.8 and 52 respectively. Plan for discharge today with nephrostomy tubes and as patient has outpatient dialysis chair scheduled T/R/S [id number]. Multiple transfers denied and pt recommended to follow up with [facility] resident clinic for outpatient primary care, f/u of LP and biopsy results, as well as coordination with outpatient specialists. 05/29/2025: Patient seen and examined at bedside. No new complaints. Both nephrostomy tubes draining clear urine. Araiza bag minimal urine at the time of interview and slight blood. Cr 3.2 and BUN 59, stable. HD schedule is T/R/S and if patient has not yet been discharged, will do HD inpatient tomorrow. 05/30/2025: Patient seen and examined at bedside with Marisabel. No new complaints and is feeling well. R nephrostomy tube draining mild hematuria and L draining clear urine, both draining R>L. Araiza in place with minimal output but with hematuria with blood clots in tube. Cr stable elevated 3.2, BUN increased from 59 to 68. I/O 24h 2.3L/2.1L from nephrostomy tubes, so plan to hold HD today iso good urine output. Reassess for HD tomorrow if patient is still here, if patient discharged, has scheduled outpatient dialysis in place. Exam Vital Signs Temp Pulse Resp BP Pulse Ox O2 Del Method O2 Flow Rate 97.6 F 77 17 111/60 97 Room Air 3 05/30/25 08:00 05/30/25 08:00 05/30/25 08:00 05/30/25 08:00 05/30/25 08:00 05/30/25 08:00 05/27/25 16:00 Narrative Exam GENERAL APPEARANCE: Thin, temporal wasting noted, appears older than stated age NECK: Neck supple, no JVD or bruit CARDIOVASCULAR: Heart regular, no murmurs LUNGS/CHEST: Chest clear to auscultation. No rales, rhonchi, wheezing ABDOMEN: Soft, mild discomfort noted in the lower abdomen, hard bladder. Normal bowel sounds. : b/l draining nephrostomy tubes in place (R mild hematuria, L clear urine), Araiza in place (bag minimal output, very bloody with clots in tube) EXTREMITIES: No edema, clubbing or cyanosis. SKIN: Skin exam normal without any rashes. R IJ dialysis catheter in place NEUROLOGICAL : Able to move his extremities. Noted speech impairment. Objective Labs 05/30/25 04:37 05/30/25 04:37 Labs: Laboratory Results - last 24 hr 05/30/25 04:37 WBC 12.3 H RBC 3.22 L Hgb 9.4 L Hct 30.0 L MCV 93 MCH 29.2 MCHC 31.3 RDW Std Deviation 45.7 H Plt Count 465 H D Neut % (Auto) 83 H Lymph % (Auto) 7 L [place] % (Auto) 7 Eos % (Auto) 1 Baso % (Auto) 1 Neut # (Auto) 10.2 H Lymph # (Auto) 0.9 L [place] # (Auto) 0.8 Eos # (Auto) 0.1 Baso # (Auto) 0.1 Immature Gran # (Auto) 0.17 H Absolute Nucleated RBC 0.00 Immature Gran % 1 H Nucleated RBC % 0 Sodium 138 Potassium 4.0 Chloride 102 Carbon Dioxide 25.9 Anion Gap 10 BUN 68 H Creatinine 3.2 H Estim Creat Clear Calc 21.5 L eGFR 21 L BUN/Creatinine Ratio 21 H Glucose 105 Calculated Osmolality 295 Calcium 8.6 Corrected Calcium 8.9 Phosphorus 4.3 Magnesium 2.3 Total Bilirubin 0.3 AST 14 ALT 19 Alkaline Phosphatase 103 Total Protein 6.6 Albumin 3.6 Globulin 3.0 Albumin/Globulin Ratio 1.2 Random Vancomycin 15.0 Quality Measures Quality Measures VTE prophylaxis (SCDs) Assessment & Plan Assessment Current Active Medications: Generic Name Dose Route Start Last Admin Trade Name Freq PRN Reason Stop Dose Admin Acetaminophen 650 mg 05/16/25 10:21 05/28/25 21:36 Acetaminophen 325 Mg Tablet PO 06/15/25 10:20 650 mg Q6H PRN Administration Fever >100.4 or pain Protocol Carbamazepine 200 mg 05/28/25 22:00 05/30/25 05:55 Carbamazepine 100 Mg Chew PO 06/27/25 21:59 200 mg TID SHADY Administration Heparin Sodium (Porcine) 3,300 unit 05/22/25 09:52 05/27/25 11:34 Heparin Sod Inj 1000 Unit/Ml Vial 10 Ml INDWELLCAT 06/05/25 09:51 3,300 unit X1 PRN Administration DIALYSIS Albumin Human 25 gm in 100 mls @ 100 mls/min 05/27/25 08:56 Albuminar-25 Ivpb IV PRN PRN DIALYSIS Vancomycin/Sodium Chloride 100 mls @ 120 mls/hr 05/30/25 13:00 Vancomycin/Ns 500 Mg Ivpb IV 05/30/25 13:49 X1 ONE Lactulose 10 gm 05/29/25 22:00 05/30/25 05:55 Lactulose Syrup 20 Gm/30 Ml Udc PO 06/28/25 21:59 10 gm TID SHADY Administration Protocol Magnesium Hydroxide 30 ml 05/29/25 18:15 Milk Of Magnesia Susp 30 Ml Udc PO 06/28/25 18:14 QDAY PRN CONSTIPATION Protocol Melatonin 3 mg 05/22/25 22:27 05/28/25 21:36 Melatonin 3 Mg Tablet PO 06/22/25 20:59 3 mg HS PRN Administration insomnia Midodrine 5 mg 05/29/25 10:03 Midodrine 5 Mg Tablet PO 06/28/25 13:59 TID PRN sbp < 110 Ondansetron HCl 4 mg 05/16/25 10:21 Ondansetron Inj 2 Mg/Ml Inj 2 Ml IVP 06/15/25 10:20 Q6H PRN NAUSEA OR VOMITING Protocol Pantoprazole Sodium 40 mg 05/26/25 09:00 05/30/25 08:50 Pantoprazole 40 Mg Tablet PO 06/16/25 08:59 40 mg QDAY SHADY Administration Pharmacy Consult 1 each 05/21/25 10:00 Vancomycin Pharmacy To Dose 1 Each Each IV 05/31/25 09:59 QDAY PRN CONSULT Plan Amarjit Meade is a 62-year-old male with no past medical history presented for mechanical fall at work due to chorea-like movements, found to have Cr 6.2 and BUN 92 with bladder mass and advanced hydronephrosis. 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 ~30 pack year, quit 04/2025. Found to have hydronephrosis from obstrutive uropathy of urothelial carcinoma in situ causing CORINA on CKD vs ESRD. 05/16 CT abd pelvis showed advanced b/l hydronephrosis, extensive abdominal and pelvic lymphadenopathy, distended urinary bladder with marked irregular bladder wall thickening, enzo posteriorly most consistent with bladder cancer. 05/19 NM renal scan showed no renal fx with minimal flow to Lt kidney and reduced flow to Rt kidney; however GFR slowly improving with good urine output s/p nephrostomy tubes and alleviation of hydronephrotic pressure, thus hoping for a renal recovery, whereas ESRD is irreversible with no recovery Nephrostomy tubes: b/l placed 05/17, L fell out 05/19, L replaced 05/20, R replaced 05/21 and 05/27 05/21 Perm cath inserted Received HD 05/18, 05/19, 05/20, 05/22, 05/24, 05/27 05/22 Cystoscopy showed large prostate and very large bladder tumor occupying both ureteral orifices, tumor resected with bleeding stopped with fulguration, biopsy taken and sent to [facility] 05/23 Renal US showed severe right hydronephrosis, L hydronephrosis much improved. Patient needs transfer to higher level of care, but has been denied transfer to 3 locations. Bladder tumor biopsy: urothelial carcinoma in situ, invasive urothelial carcinoma with glandular differentiation Plan: -Hold HD today iso good urine output -Reassess tomorrow for potential HD -Is scheduled outpatient HD T/R/S -Can be d/c to SNF or with home health from nephrology standpoint in management of nephrostomy tubes -Araiza can be discontinued per urology -Follow up with outpatient oncology and urology #[place] movements-improving #Normocytic anemia #Hyperparathyroidism -Management per primary team. Plan discussed with nephrology attending Dr. Esther Matamoros, DO Internal Medicine PGY-1 Attending Provider Attestation/Addendum Patient seen and examined with resident physician Dr. Matamoros. Note reviewed, agree with findings and recommendations. Marisabel at bedside. Patient more alert and awake today. Admitted with CORINA secondary to obstructive uropathy. Patient had cystoscopy-showed large bladder tumor. Biopsy was taken. Spoke to Dr. Hernandez-patient needs to go to tertiary care center for large aggressive bladder tumor. apron worker to help him with transfer.. Outpatient dialysis also should be arranged. Spoke to primary team. Despite bilateral nephrostomy tubes-repeat renal ultrasound showed a large right hydronephrosis. s/p right nephrostomy tube exchanged. Dr. Carrion was consulted per Dr. Hernandez's request. Bladder biopsy showed aggressive bladder cancer. Plan of care discussed with primary team. Transferred held patient needs outpatient hematology consultation. Held dialysis today Next dialysis scheduled for tomorrow pending labs. Hope there will be renal recovery as patient is making more than 2 L of urine. Discharge planning per primary team to rehab.
[2025-05-30 12:00] VITALS: BP 112/68; PULSE 89; PULSE 96; RESP 18; TEMP 36.5; O2SAT 98
--- NOTE | 2025-05-30 13:03 | ESPR_ITS ---
<Statement entered by Lachelle Josue MD - 06/01/25 12:40> I reviewed above note and agree with findings and plans. I have also personally examined the patient with medicine team and went over assessment and plan with medical team including biomedical engineering internship and resident physician. <Statement entered by Abhay Rojas MD - 05/30/25 17:26> Patient was seen and examined at the bedside. No acute overnight events were reported. Patient has been admitted here for CORINA eventually leading to ESRD due to bladder mass/malignancy post bilateral nephrostomy tubes and Viveros catheter. Patient has been getting dialysis. Nephrology is following. He was found to have bacteremia therefore was continued on vancomycin and tomorrow as likely last dose of vancomycin. Patient did not have insurance therefore social worker clinical were working throughout his hospital stay and were finally able to get approval for [employer]. Patient will likely be discharged with dialysis catheter and nephrostomy tubes with home health as SNF declined the patient at [place]. Patient need dialysis before leaving and will likely get dialysis tomorrow based on nephrology recommendations or on Tuesday. Anticipate discharge in next 24-48 hours. Patient did not receive dialysis today as electrolytes were unremarkable per nephro recs. All labs and orders were reviewed. I discussed and supervised with the biomedical engineering internship physician who took care of this patient. I personally saw and examined the patient. I agree with most of the assessment and plan. Disclaimer: Despite multiple revisions, due to the dictation software being used, the document bellow may not be free of grammatical errors including phonetic/typographic errors. However, this does not deter from our commitment to providing health care in the patient's best interest in mind. Plan of care discussed with attending Physician Dr. Joselo Rojas MD PGY-3 Documentation for date of: 05/30/25 Subjective Subjective Interval history: No overnight events. Evaluated at bedside. No HD today per nephro, pt having good urine output through nephrostomy tubes. Likely dc home tmr with home health after he receives last dose of his vancomycin. Exam Vital Signs Temp Pulse Resp BP Pulse Ox O2 Del Method O2 Flow Rate 97.7 F 89 18 112/68 98 Room Air 3 05/30/25 12:00 05/30/25 12:00 05/30/25 12:00 05/30/25 12:00 05/30/25 12:00 05/30/25 12:00 05/27/25 16:00 Narrative Exam General: malnourished, frail in no distress. Oriented x 3. Afebrile. Skin: No rash, unusual bruising or prominent lesions Head: Normocephalic, atraumatic, no visible or palpable masses, depressions, or scaring. Eyes: conjunctiva clear, sclera non-icteric, no exudates or hemorrhages. Near sighted. Heart: Regular rate and rhythm Lungs: Clear to auscultation. No rales, wheeze, or rhonchi Abdomen: No tenderness, guarding or rigidity. Back: Right nephrostomy tube in place. Left nephrostomy tube in place. Extremities: No amputations or deformities, cyanosis, edema or varicosities, peripheral pulses intact. Perm Hemodialysis catheter in place at right subclavian jugular vein. Neurologic: Alert and oriented x 3, chorea like movements decreased. Unclear speech at baseline due to missing of upper dental plate. Objective Labs 05/30/25 04:37 05/30/25 04:37 Labs: Laboratory Results - last 24 hr 05/30/25 04:37 WBC 12.3 H RBC 3.22 L Hgb 9.4 L Hct 30.0 L MCV 93 MCH 29.2 MCHC 31.3 RDW Std Deviation 45.7 H Plt Count 465 H D Neut % (Auto) 83 H Lymph % (Auto) 7 L [place] % (Auto) 7 Eos % (Auto) 1 Baso % (Auto) 1 Neut # (Auto) 10.2 H Lymph # (Auto) 0.9 L [place] # (Auto) 0.8 Eos # (Auto) 0.1 Baso # (Auto) 0.1 Immature Gran # (Auto) 0.17 H Absolute Nucleated RBC 0.00 Immature Gran % 1 H Nucleated RBC % 0 Sodium 138 Potassium 4.0 Chloride 102 Carbon Dioxide 25.9 Anion Gap 10 BUN 68 H Creatinine 3.2 H Estim Creat Clear Calc 21.5 L eGFR 21 L BUN/Creatinine Ratio 21 H Glucose 105 Calculated Osmolality 295 Calcium 8.6 Corrected Calcium 8.9 Phosphorus 4.3 Magnesium 2.3 Total Bilirubin 0.3 AST 14 ALT 19 Alkaline Phosphatase 103 Total Protein 6.6 Albumin 3.6 Globulin 3.0 Albumin/Globulin Ratio 1.2 Random Vancomycin 15.0 Quality Measures Quality Measures VTE prophylaxis (SCDs) Assessment & Plan Assessment Current Active Medications: Generic Name Dose Route Start Last Admin Trade Name Freq PRN Reason Stop Dose Admin Acetaminophen 650 mg 05/16/25 10:21 05/28/25 21:36 Acetaminophen 325 Mg Tablet PO 06/15/25 10:20 650 mg Q6H PRN Administration Fever >100.4 or pain Protocol Carbamazepine 200 mg 05/28/25 22:00 05/30/25 05:55 Carbamazepine 100 Mg Chew PO 06/27/25 21:59 200 mg TID SHADY Administration Heparin Sodium (Porcine) 3,300 unit 05/22/25 09:52 05/27/25 11:34 Heparin Sod Inj 1000 Unit/Ml Vial 10 Ml INDWELLCAT 06/05/25 09:51 3,300 unit X1 PRN Administration DIALYSIS Albumin Human 25 gm in 100 mls @ 100 mls/min 05/27/25 08:56 Albuminar-25 Ivpb IV PRN PRN DIALYSIS Vancomycin/Sodium Chloride 100 mls @ 120 mls/hr 05/30/25 13:00 Vancomycin/Ns 500 Mg Ivpb IV 05/30/25 13:49 X1 ONE Lactulose 10 gm 05/29/25 22:00 05/30/25 05:55 Lactulose Syrup 20 Gm/30 Ml Udc PO 06/28/25 21:59 10 gm TID SHADY Administration Protocol Magnesium Hydroxide 30 ml 05/29/25 18:15 Milk Of Magnesia Susp 30 Ml Udc PO 06/28/25 18:14 QDAY PRN CONSTIPATION Protocol Melatonin 3 mg 05/22/25 22:27 05/28/25 21:36 Melatonin 3 Mg Tablet PO 06/22/25 20:59 3 mg HS PRN Administration insomnia Midodrine 5 mg 05/29/25 10:03 Midodrine 5 Mg Tablet PO 06/28/25 13:59 TID PRN sbp < 110 Ondansetron HCl 4 mg 05/16/25 10:21 Ondansetron Inj 2 Mg/Ml Inj 2 Ml IVP 06/15/25 10:20 Q6H PRN NAUSEA OR VOMITING Protocol Pantoprazole Sodium 40 mg 05/26/25 09:00 05/30/25 08:50 Pantoprazole 40 Mg Tablet PO 06/16/25 08:59 40 mg QDAY SHADY Administration Pharmacy Consult 1 each 05/21/25 10:00 Vancomycin Pharmacy To Dose 1 Each Each IV 05/31/25 09:59 QDAY PRN CONSULT Plan 64M with unknown history presents for ground level fall at work with incidental finding of elevated Cr. Initial CT scarns shows bladder mass with bilateral hydronephrosis. Pt is s/p bilateral nephrostomy tubes and perm cath placement. Plan for outpt HD and dc home with home health. #Bladder mass, likley malignancy #Newly Diagnosed ESRD #acute renal failure 2/2 obstructive uropathy #B/L hydronephrosis CTAP with BL hydronephrosis and bladder mass Solid nodule noted on bladder wall measuring 2.8 x 1.9 x 1.4cm US, bladder mass, and R severe hydronephrosis Nephrology consulted: perm cath at right subclavian, Irrigate viveros if has clot retention, at this time not a good candidate for surgical intervention, repeat kidney US on 05/23 shows severe right hydronephrosis still. IR recommends to not proceed with pelvic lymph node biopsy due to location and size of lymph node NM renal scan shows no renal function. 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 Spoke with Dr. Kent who also agrees with high mortality rate for surgical intervention, recs oncology consultation. Right nephrostomy tube replaced 05/27/25 - Daily CMP, trend electrolyte. - ID consulted appreciate recs: cont IV abx. 05/31 - HD per nephrology recommendation - strict I/O - renal dose medication - Bilateral nephrostomy tube in place. keep due to urology needs - viveros catheter in place, if not draining okay to manually irrigate per urology. - Outpt follow up for further management with oncology, Dr. Carrion. #GPC bacteremia vs contamination - Staph epi #GPC vs GNR pneumonia CT chest on 05/19 shows significant bibasilar pneumonia, WBC now wnl Initial elevated ESR, prolactin, CRP, likely due to poor renal function and tumor mass 2/2 Bcx on 05/20 grows GPC.- staph epi Repeat 05/21 Bcx shows no growth ECHO no vegitations, EF 50-55% - d/c Rocephin 1g QD and doxycycline 100mg BID - Continue vancomycin per ID recs, pharmacy to dose. 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 Oncology consulted: Tumor markers: CA 19-9 elevated. CEA elevated, PSA negative. Neuro consulted: clonazepam, ok for anticholinergic meds, valbenazine or deutrabenozine (not available on formulary). Neurology consulted: LP on 05/27 for workup on paraneoplastic or autoimmune encephalitis. - Per neurology, D/C Ropinirole, switch to Carbamazepine 200mg TID. Monitor for hyponatremia. Pending final neuro recs #Anemia of chronic disease Concerns for bleeding at tumor site bladder, - A unit of blood was transfused during dialysis on 05/22, post transfusion h/h 08/29 - Retacrit 10,000unit x1 - daily CBC, if falls below 8, consider blood transfusion - EPO given , iron panel. #Hyperparathyroidism Initial PTH 370.5. Ca 8.6 likely secondary to renal failure - follow up out patient Dispo: Pending SNF placement DVT prophylaxis: SCDs GI prophylaxis: Protonix 40 IV Diet: Renal Diet Lines: Peripheral IV, viveros catheter, bilateral nephrostomy tube in place, R IJ perm catheter Code status: Full code Case discussed with my senior resident Dr. Rojas Case discussed with my attending Dr. Joselo Kirk, DO PGY-1
[2025-05-30] MEDS: VANCOMYCIN/NS 500 MG IVPB 100 ML 120 MG IV (13:57)
[2025-05-30] MEDS: ACETAMINOPHEN 325 MG TABLET 650 MG PO (13:59)
[2025-05-30 16:00] VITALS: BP 115/68; PULSE 90; RESP 18; TEMP 36.2; O2SAT 99
[2025-05-30 17:41] VITALS: BMI 13.0; BMI 15.0
[2025-05-30 20:00] VITALS: BP 111/66; PULSE 103; PULSE 85; RESP 17; TEMP 36.4; O2SAT 97
[2025-05-31] VITALS (22 sets, daily range): BP systolic 104–133; BP diastolic 58–78; PULSE 79–100; RESP 16–18; TEMP 36.2–36.7; O2SAT 96–99
[2025-05-31] MEDS: LACTULOSE SYRUP 20 GM/30 ML UDC 10 GM PO (05:28)
[2025-05-31 06:17] LABS: Basophils # (Auto) 0.1 Thou/mm3 (0.0-0.2); Basophils % (Auto) 1 % (0-2.5); Eosinophils # (Auto) 0.2 Thou/mm3 (0.0-0.5); Eosinophils % (Auto) 1 % (0-10); Hematocrit 29.3 % (41.0-53.0); Hemoglobin 9.1 g/dL (13.5-16.0); Immature Granulocytes Auto 0.13 Thou/mm3 (0.00-0.00); Lymphocytes # (Auto) 0.9 Thou/mm3 (1.0-4.8); Lymphocytes % (Auto) 7 % (10-50); Mean Corpuscular HGB Conc 31.1 g/dl (31.0-37.0); Mean Corpuscular Hemoglobin 29.4 pg (25.0-35.0); Mean Corpuscular Volume 95 fL (80-100); Monocytes # (Auto) 0.8 Thou/mm3 (0.0-0.8); Monocytes % (Auto) 6 % (0-12); Neutrophils # (Auto) 11.0 Thou/mm3 (1.8-7.7); Neutrophils % (Auto) 84 % (37-80); Nucleated Red Blood Cell # 0.00 Thou/mm3 (0.00-0.00); Nucleated Red Blood Cell % 0 /100 WBC (0); Platelet Count 459 Thou/mm3 (140-440); RDW Standard Deviation 46.5 fL (35.1-43.9); Red Blood Count 3.10 Miln/mm3 (4.50-5.90); White Blood Count 13.1 Thou/mm3 (3.8-10.6)
[2025-05-31 06:39] LABS: Alanine Aminotransferase 21 U/L (10-49); Albumin, Serum 3.6 gm/dL (3.4-4.8); Albumin/Globulin Ratio 1.2 (1.2-2.2); Alkaline Phosphatase 109 U/L (46-116); Anion Gap 14 (7-16); Aspartate Amino Transferase 17 U/L (0-34); BUN/Creatinine Ratio 20 Ratio (12-20); Bilirubin,Total 0.2 mg/dL (0.3-1.2); Blood Urea Nitrogen 70 mg/dL (9-23); Calcium 8.9 mg/dL (8.3-10.6); Calcium (Corrected) 9.2 mg/dL (8.5-10.1); Carbon Dioxide 24.5 mMol/L (20.0-31.0); Chloride 102 mMol/L (98-107); Creatinine (Component) 3.5 mg/dL (0.6-1.3); Estimated Creatinine Clearance 19.7 mL/min (>60); Globulin 3.0 gm/dL (2.3-3.5); Glucose 104 mg/dL (74-106); Magnesium 2.5 mg/dL (1.6-2.6); Osmolality,Calculated 299 (275-295); Phosphorous 4.5 mg/dL (2.4-5.1); Potassium 3.9 mMol/L (3.4-5.1); Sodium 140 mMol/L (136-145); Total Protein 6.6 gm/dL (5.7-8.2); Vancomycin,Random 16.9 mcg/mL; eGFR 19 See Note
--- NOTE | 2025-05-31 09:07 | PD.RESPRO ---
Documentation for date of: 05/31/25 Subjective Subjective Interval history: Interval history: Amarjit Meade is a 62-year-old male with no past medical history presented for mechanical fall at work. States that he fell forward because his lower back has been giving out for the past few months. He has also been having chorea-like, jerky movements for the past few months and is supposed to see neurology but is having insurance issues. Has not seen a physician in many years. Per , patient has been having enuresis for the past few weeks and claims patient is stubborn and does not want to see a physician. Patient's urine is normally green due to vitamin supplements. Patient admits that he does not drink very much water nor does he urinate very much. Denies pain on urination, increase in urinary urgency, frequency or hesitancy, interrupted stream, any history of prostate issues, flank pain, or recent weight loss. Denies fever, chills, shortness of breath or chest pain. Denies family history of any kidney disease or dialysis. 05/23/25: Patient seen and examined at bedside with . Has a very mild headache. Araiza bag still bloody. Cr 3.1, BUN 38. Continues to have some word finding difficulty even though choreiform movements have improved. 05/24/25: Patient seen and examined in dialysis. No complaints. Araiza bag is less bloody. Social work reports patient will be getting [employer] on Tuesday. Cr 3.6 and BUN 38. Denies chest pain, SOB or fever. 05/29/2025: Patient seen and examined at bedside. No new complaints. Both nephrostomy tubes draining clear urine. Araiza bag minimal urine at the time of interview and slight blood. Cr 3.2 and BUN 59, stable. HD schedule is T/R/S and if patient has not yet been discharged, will do HD inpatient tomorrow. 05/30/2025: Patient seen and examined at bedside with Marisabel. No new complaints and is feeling well. R nephrostomy tube draining mild hematuria and L draining clear urine, both draining R>L. Araiza in place with minimal output but with hematuria with blood clots in tube. Cr stable elevated 3.2, BUN increased from 59 to 68. I/O 24h 2.3L/2.1L from nephrostomy tubes, so plan to hold HD today iso good urine output. Reassess for HD tomorrow if patient is still here, if patient discharged, has scheduled outpatient dialysis in place. 05/31/2025: Patient seen and examined while in HD, no new complaints and is feeling well. R nephrostomy tube draining urine with scant blood 2150 and L draining urine 875, both draining. Araiza in place with 350 output, Cr increased to 3.5 from 3.2. BUN increased from 68 to 70. Will have HD today, pt will discharge with HH, and outpatient HD starting on 06/04/2025. Exam Vital Signs Temp Pulse Resp BP Pulse Ox O2 Del Method O2 Flow Rate 97.7 F 96 16 129/76 96 Room Air 3 05/31/25 08:05/31/25 09:00 05/31/25 08:05/31/25 09:00 05/31/25 08:25 05/31/25 07:20 05/27/25 16:00 Narrative Exam GENERAL APPEARANCE: Thin, temporal wasting noted, appears older than stated age NECK: Neck supple, no JVD or bruit CARDIOVASCULAR: Heart regular, no murmurs LUNGS/CHEST: Chest clear to auscultation. No rales, rhonchi, wheezing ABDOMEN: Soft, mild discomfort noted in the lower abdomen, hard bladder. Normal bowel sounds. : b/l draining nephrostomy tubes in place (R yellow urine, L yellow urine), Araiza in place (bag minimal output) EXTREMITIES: No edema, clubbing or cyanosis. SKIN: Skin exam normal without any rashes. R IJ dialysis catheter in place NEUROLOGICAL : Able to move his extremities. Noted speech impairment. Objective Labs 05/31/25 04:53 05/31/25 04:53 Labs: Laboratory Results - last 24 hr 05/16/25 05/31/25 17:30 04:53 WBC 13.1 H RBC 3.10 L Hgb 9.1 L Hct 29.3 L MCV 95 MCH 29.4 MCHC 31.1 RDW Std Deviation 46.5 H Plt Count 459 H Neut % (Auto) 84 H Lymph % (Auto) 7 L [place] % (Auto) 6 Eos % (Auto) 1 Baso % (Auto) 1 Neut # (Auto) 11.0 H Lymph # (Auto) 0.9 L [place] # (Auto) 0.8 Eos # (Auto) 0.2 Baso # (Auto) 0.1 Immature Gran # (Auto) 0.13 H Absolute Nucleated RBC 0.00 Immature Gran % 1 H Nucleated RBC % 0 Sodium 140 Potassium 3.9 Chloride 102 Carbon Dioxide 24.5 Anion Gap 14 BUN 70 H Creatinine 3.5 H Estim Creat Clear Calc 19.7 L eGFR 19 L BUN/Creatinine Ratio 20 Glucose 104 Calculated Osmolality 299 H Calcium 8.9 Corrected Calcium 9.2 Phosphorus 4.5 Magnesium 2.5 Total Bilirubin 0.2 L AST 17 ALT 21 Alkaline Phosphatase 109 Total Protein 6.6 Albumin 3.6 Globulin 3.0 Albumin/Globulin Ratio 1.2 Urine Osmolality Cancelled Random Vancomycin 16.9 Quality Measures Quality Measures VTE prophylaxis (SCDs) Assessment & Plan Assessment Current Active Medications: Generic Name Dose Route Start Last Admin Trade Name Freq PRN Reason Stop Dose Admin Acetaminophen 650 mg 05/16/25 10:21 05/30/25 13:59 Acetaminophen 325 Mg Tablet PO 06/15/25 10:20 650 mg Q6H PRN Administration Fever >100.4 or pain Protocol Carbamazepine 200 mg 05/28/25 22:00 05/31/25 05:28 Carbamazepine 100 Mg Chew PO 06/27/25 21:59 200 mg TID SHADY Administration Epoetin Kvng 10,000 unit 05/31/25 10:00 Epoetin Kvng-Epbx Inj 10,000 Unit/Ml Vial (Non-Esrd) IV 05/31/25 10:01 X1 ONE Heparin Sodium (Porcine) 3,300 unit 05/22/25 09:52 05/27/25 11:34 Heparin Sod Inj 1000 Unit/Ml Vial 10 Ml INDWELLCAT 06/05/25 09:51 3,300 unit X1 PRN Administration DIALYSIS Albumin Human 25 gm in 100 mls @ 100 mls/min 05/27/25 08:56 Albuminar-25 Ivpb IV PRN PRN DIALYSIS Vancomycin/Sodium Chloride 100 mls @ 120 mls/hr 05/31/25 13:00 Vancomycin/Ns 500 Mg Ivpb IV 05/31/25 13:49 X1 ONE Lactulose 10 gm 05/29/25 22:00 05/31/25 05:28 Lactulose Syrup 20 Gm/30 Ml Udc PO 06/28/25 21:59 10 gm TID SHADY Administration Protocol Magnesium Hydroxide 30 ml 05/29/25 18:15 Milk Of Magnesia Susp 30 Ml Udc PO 06/28/25 18:14 QDAY PRN CONSTIPATION Protocol Melatonin 3 mg 05/22/25 22:27 05/28/25 21:36 Melatonin 3 Mg Tablet PO 06/22/25 20:59 3 mg HS PRN Administration insomnia Midodrine 5 mg 05/29/25 10:03 Midodrine 5 Mg Tablet PO 06/28/25 13:59 TID PRN sbp < 110 Ondansetron HCl 4 mg 05/16/25 10:21 Ondansetron Inj 2 Mg/Ml Inj 2 Ml IVP 06/15/25 10:20 Q6H PRN NAUSEA OR VOMITING Protocol Pantoprazole Sodium 40 mg 05/26/25 09:00 05/30/25 08:50 Pantoprazole 40 Mg Tablet PO 06/16/25 08:59 40 mg QDAY SHADY Administration Pharmacy Consult 1 each 05/21/25 10:00 Vancomycin Pharmacy To Dose 1 Each Each IV 05/31/25 09:59 QDAY PRN CONSULT Plan Amarjit Meade is a 62-year-old male with no past medical history presented for mechanical fall at work due to chorea-like movements, found to have Cr 6.2 and BUN 92 with bladder mass and advanced hydronephrosis. plan for discharge today home with , will continue HD outpatient on Tuesday, , Tuesday schedule. 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 ~30 pack year, quit 04/2025. Found to have hydronephrosis from obstrutive uropathy of urothelial carcinoma in situ causing CORINA on CKD vs ESRD. 05/16 CT abd pelvis showed advanced b/l hydronephrosis, extensive abdominal and pelvic lymphadenopathy, distended urinary bladder with marked irregular bladder wall thickening, enzo posteriorly most consistent with bladder cancer. 05/19 NM renal scan showed no renal fx with minimal flow to Lt kidney and reduced flow to Rt kidney; however GFR slowly improving with good urine output s/p nephrostomy tubes and alleviation of hydronephrotic pressure, thus hoping for a renal recovery, whereas ESRD is irreversible with no recovery Nephrostomy tubes: b/l placed 05/17, L fell out 05/19, L replaced 05/20, R replaced 05/21 and 05/27 05/21 Perm cath inserted Received HD 05/18, 05/19, 05/20, 05/22, 05/24, 05/27 05/22 Cystoscopy showed large prostate and very large bladder tumor occupying both ureteral orifices, tumor resected with bleeding stopped with fulguration, biopsy taken and sent to [facility] 05/23 Renal US showed severe right hydronephrosis, L hydronephrosis much improved. Patient needs transfer to higher level of care, but has been denied transfer to 3 locations. Bladder tumor biopsy: urothelial carcinoma in situ, invasive urothelial carcinoma with glandular differentiation Plan: -HD today -Is scheduled outpatient HD T//S -Can be d/c to SNF or with home health from nephrology standpoint in management of nephrostomy tubes -Araiza can be discontinued per urology -Follow up with outpatient oncology and urology -pt is ok to d/c from nephrology perspective, discharge pending per primary team with home health. Will start HD on Tuesday06/04/2025 outpatient #Chorea movements-improving #Normocytic anemia #Hyperparathyroidism -Management per primary team. Plan discussed with nephrology attending Dr. Esther Varela MD Internal Medicine PGY-1 Attending Provider Attestation/Addendum Patient seen and examined with resident physician Dr. Fenton. Note reviewed, agree with findings and recommendations. Marisabel at bedside. Patient more alert and awake today. Admitted with CORINA secondary to obstructive uropathy. Patient had cystoscopy-showed large bladder tumor. Biopsy was taken. Spoke to Dr. Hernandez-patient needs to go to tertiary care center for large aggressive bladder tumor. Patient currently with bilateral nephrostomy tubes and Araiza catheter. Dr. Carrion was consulted per Dr. Hernandez's request. Bladder biopsy showed aggressive bladder cancer. Plan of care discussed with primary team. patient needs outpatient hematology/oncology consultation. Patient currently seen on dialysis. Tolerating dialysis without any problems. Hemodialysis for 3 hours, 2K, ultrafiltration 0 L, Epogen 6000, no heparin ordered. Plan of care discussed with the dialysis nurse. Please see dialysis flowsheet for further details. Next dialysis scheduled for Tuesday. Hope there will be renal recovery as patient is making more than 2 L of urine. Discharge planning per primary team to rehab with twice weekly outpatient dialysis
--- NOTE | 2025-05-31 09:12 | PC.SS ---
SS rounding note; Patient is getting dialysis today, pending Dr. Rojo's clearance to discharge home with Cherelle BARONE.
[2025-05-31] MEDS: EPOETIN ALFA-EPBX INJ 10,000 UNIT/ML VIAL (NON-ESRD) 10000 UNIT IV (09:36)
--- NOTE | 2025-05-31 10:48 | PC.SS ---
WheelChairs Patients diagnosis creates mobility limitations that significantly impairs ability to participate in the patient?s activities of daily living either in their entirety, or in a reasonable time frame in the home and the patient?s mobility limitations cannot be sufficiently resolved with an appropriately fitted cane or walker. Also the use of a manual wheelchair will sufficiently improve patient?s ability to participate in the activities of daily living in the home and the patient is willing to use the wheelchair that is provided in the home. The patient has some one in the home that is available, willing and able to provide assistance with the wheelchair.
--- NOTE | 2025-05-31 11:20 | PC.SS ---
SS follow up note; SS spoke to patient's , Marisabel and she is agreeable to have patient discharge home today however she reports that she is not able to transport patient due to her lifted truck. SS informed her that SS would set up transportation with [facility] services for 6PM. SS contacted [facility] services and they informed SS they would contact SS with ETA. SS will stand by for further needs.
[2025-05-31] MEDS: VANCOMYCIN/NS 500 MG IVPB 100 ML 120 MG IV (13:00)
--- NOTE | 2025-05-31 13:13 | ESDS_ITS ---
<Statement entered by Lachelle Josue MD - 06/03/25 16:10> I reviewed above note and agree with findings and plans. I have also personally examined the patient with medicine team and went over assessment and plan with medical team including international sourcing manager and resident physician. <Statement entered by Uziel Hudson MD - 05/31/25 18:31> Patient was examined and case was reviewed with team including attending physician. Note reviewed, I agree with most of its contents and agree with the patient's care. Uziel Hudson MD PGY-2 Planned Discharge Date 05/31/25 DS: Providers Provider Date of admission: 05/16/25 10:21 Primary care physician: Physician No Primary/Family Admitting Provider: Margie Davis DO Attending Provider on Admission: Lachelle Jouse MD Consults: 05/16/25 10:04 Consult to Nephrology Stat Comment: Consulting Provider: Ronel Santana 05/16/25 15:06 Consult to Urology Routine Comment: hematuria Consulting Provider: Everton Kent 05/17/25 07:31 Consult to Oncology Routine Comment: Consulting Provider: Amanuel Carrion 05/18/25 13:48 Consult to Acupuncture Physician Routine Comment: Dialysis line placement Consulting Provider: Tamera Garcia 05/21/25 08:22 Referral Physical Therapy Routine Comment: Physician Instructions: 05/23/25 14:11 Consult to Neurology / Tele-Neurology Routine Comment: word finding difficulty Consulting Provider: Andrew Castellon 05/24/25 11:18 Consult to Infectious Diseases Routine Comment: Staph epi bacteremia Consulting Provider: Roel Crow 05/25/25 10:39 Referral - Patient Access Routine Service Needed for Transfer: Urology Addl Comments:: Patient has advanced bladder cancer needs bladder surgery .Would require cystectomy with ileal conduit, needs urologist and oncologist for advanced surgery 05/27/25 12:36 Consult to Oncology Stat Comment: bladder cancer Consulting Provider: Amanuel Carrion Attending Provider on DC: Lachelle Josue MD Discharging Provider: Anshul Kirk DO Anticipated date of discharge: 05/31/25 DS: Diagnosis Problem List Completed Was Problem List Reviewed/Reconciled?: Yes Hospital Course Hospital Course Hospital course: Mr. Meade is a 64M with no known past medical history presented to the ER on 05/16/25 after a ground level fall at work. Pt denied head trauma, c-spine tenderness, or loss of consciousness, however, did endorse urinary incontinence at night time that started 2 weeks prior to this encounter. In the ER, an incidental finding of elevated creatinine was noted. Renal US on 05/16/25 showed bilateral hydronephrosis secondary to obstructive bladder mass. Bilateral percutaneous nephrostomy tubes were subsequently placed per urology recommendation, and he was subsequently started on hemodialysis due to poor kidney function. Due to the nature and size of the bladder mass, a discussion to transfer to higher level of care was initiated. He was declined transfer to [facility] [place], [facility], and [facility]. The urologists from these instiutions stated pt did not need urgent transfer at this point and can follow urology as outpatient. In- house urologist agreed that pt can follow up outpatient for further management of his bladder mass. Of note, pt's noticed that pt started to have chorea movements about 1 week prior to admission. MRI [place] on 05/20/25 unremarkable. Neurology was consulted for workup of autoimmune encephalitis and possible paraneoplastic process, pending CSF study as of this date. Pt was advised to continue follow up with oncology, urology, and outpatient for lab results and further management. Pt is medically and physically stable for discharge. Diagnosis #Invasive urothelial carcinoma with glandular differentiation #ESRD on hemodialysis #Acute renal failure seondary to obstructive uropathy #Bilateral hydronephrosis s/p bilateral percutaenous nephrostomy tubes #GPC bacteremia #[place] movement of unknown origin #Anemia of chronic disease Discharge Plan: Follow up with primary care physician within 1 week of discharge and get referalls for specialist services if needed Follow up closely with Urology, Hematology/ Oncology and Radiation oncology with regards to bladder cancer You have been started on the follow medications carbamazepine, midodrine, pantoprazole, please take these medications as prescribed Should any symptoms recur or worsen patient is instructed to return to the ED. Case discussed with my senior resident Dr. Gregory Hudson Case discussed with my attending Dr. Joselo Kirk, PGY 1 Time Spent with Patient Time attestation: Total time spent providing and/or coordinating discharge services: Time spent: Greater than 30 minutes Home Health Home Health Referral Orders: 05/29/25 14:29 Home Health Referral Routine Reason For Exam: PT Home-Bound The patient must either because of illness or injury, need the aid of supportive devices such as crutches, canes, wheelchairs, and walkers; the use of special transportation; or the assistance of another person in order to leave their place of residence; OR have a condition such that leaving his or her home is medically contraindicated. In addition, the patient also meets the following criteria: patient is normally unable to leave the home and leaving home requires considerable taxing effort. Addendum to Home Health Certification Practitioner's Certification: I certify that the patient has been under my care in the hospital and the care of attending physician (see below). We had a xgfd-[id number] encounter on (see date below). My clinical findings indicate that the patient is home bound per the above criteria and the Home Health Services noted in these orders are medically necessary. The primary reason for the yisr-fd-[id number] encounter is related to the fact that the patient requires home health services. Date Certifying Mlsn-uv-Oqbe Physician Encounter: 05/16/25 Physician's Name who will Assume Oversight for HH Services: Cullen Mcelroy BRAZER ASSEMBLER - Community Resources: No PT to Evaluate: Yes PT to evaluate and provide a treatmnet plan to increase patient's mobility and strength. Wound Care: No IV Therapy: No RN Safety Evaluation: Yes RN to evaluate and create a plan of care that will produce positive outcomes. Palliative Treatment: No Palliative treatment and evaluate the need for hospice. Home Health Aide - Personal Care: No Home Health Aide to assist with any ADL's. 05/30/25 10:32 Home Health Referral Routine Reason For Exam: PT Home-Bound The patient must either because of illness or injury, need the aid of supportive devices such as crutches, canes, wheelchairs, and walkers; the use of special transportation; or the assistance of another person in order to leave their place of residence; OR have a condition such that leaving his or her home is medically contraindicated. In addition, the patient also meets the following criteria: patient is normally unable to leave the home and leaving home requires considerable taxing effort. Addendum to Home Health Certification Practitioner's Certification: I certify that the patient has been under my care in the hospital and the care of attending physician (see below). We had a eono-kr-cdid encounter on (see date below). My clinical findings indicate that the patient is home bound per the above criteria and the Home Health Services noted in these orders are medically necessary. The primary reason for the itfg-gw-zgij encounter is related to the fact that the patient requires home health services. Date Certifying Vwmi-ma-Iqom Physician Encounter: 05/16/25 Physician's Name who will Assume Oversight for HH Services: Cullen Mcelroy BRAZER ASSEMBLER - Community Resources: No PT to Evaluate: Yes PT to evaluate and provide a treatmnet plan to increase patient's mobility and strength. Wound Care: No IV Therapy: No RN Safety Evaluation: Yes RN to evaluate and create a plan of care that will produce positive outcomes. Palliative Treatment: No Palliative treatment and evaluate the need for hospice. Home Health Aide - Personal Care: No Home Health Aide to assist with any ADL's. Exam Vital Signs Temp Pulse Resp BP Pulse Ox O2 Del Method O2 Flow Rate 98.0 F 93 17 115/78 96 Room Air 3 05/31/25 12:05/31/25 12:05/31/25 12:05/31/25 12:05/31/25 12:05/31/25 12:05/31/25 11:29 Narrative Exam General: malnourished, frail in no distress. Oriented x 3. Afebrile. Skin: No rash, unusual bruising or prominent lesions Head: Normocephalic, atraumatic, no visible or palpable masses, depressions, or scaring. Eyes: conjunctiva clear, sclera non-icteric, no exudates or hemorrhages. Near sighted. Heart: Regular rate and rhythm Lungs: Clear to auscultation. No rales, wheeze, or rhonchi Abdomen: No tenderness, guarding or rigidity. Back: Right nephrostomy tube in place. Left nephrostomy tube in place. Extremities: No amputations or deformities, cyanosis, edema or varicosities, peripheral pulses intact. Perm Hemodialysis catheter in place at right subclavian jugular vein. Neurologic: Alert and oriented x 3, chorea like movements decreased. Unclear speech at baseline due to missing of upper dental plate. Discharge Plan Plan Patient Disposition: Home w/HOME HEALTH Patient condition on transfer: Stable Care Plan Goals: Follow up with primary care physician within 1 week of discharge and get referalls for specialist services if needed Follow up closely with Urology, Hematology/ Oncology and Radiation oncology with regards to bladder cancer You have been started on the follow medications carbamazepine, midodrine, pantoprazole, please take these medications as prescribed Should any symptoms recur or worsen patient is instructed to return to the ED. Prescriptions/Referrals Prescriptions/Med Rec: New carbamazepine 200 mg tablet 200 mg PO TID Qty: 60 0RF melatonin 3 mg Tablet 3 mg PO HS PRN (Reason: insomnia) Qty: 90 0RF midodrine 5 mg Tablet 5 mg PO TID PRN (Reason: sbp < 110) Qty: 30 0RF pantoprazole 40 mg Tablet,Delayed Release (Dr/Ec) 40 mg PO QDAY Qty: 30 0RF Referrals: Everton Kent MD [Physician] - Amanuel Carrion MD [Physician] - No Primary/Family,Physician [Primary Care Provider] - Andrew Castellon MD [Physician] - Ronel Santana MD [Physician] - Patient/Caregiver Discharge Instructions Education Materials: Preventing Surgical Site Infections Print Language: Qatari Stand Alone Forms: Maren Award Info., Patient Portal Info Letter Discharge Order Discharge Orders: Discharge (Routine); Ordered 05/31/25 Ordered By: Uziel Hudson Quality Discharge Quality Measures none
--- NOTE | 2025-05-31 13:48 | PC.SS ---
Addendum entered by Michelle Zafar 05/31/25 14:19: SS follow up note; SS contacted [facility] and they informed SS they will follow up with patient on Tuesday. SS will notify Marisabel. Original Note: SS follow up note; SS set up transportation with [employer] [facility] for 6:15pm. SS notified patient's nurse, Leonarda and patient's , Marisabel. SS also contacted [facility] and updated Joanna and informed her that patient will be following up with first dialysis session on TuesdayMay 04. Per Team A Dr. Rojo agreeable to have patient discharge today and follow up with dialysis on Tuesday.
[2025-05-31] MEDS: ACETAMINOPHEN 325 MG TABLET 650 MG PO (16:06)
--- NOTE | 2025-06-01 09:29 | PC.CC ---
Patient referred to [facility], start of care 06/03/25
[2025-06-01 17:50] LABS: Albumin, CSF 14.8 mg/dL (8.0-42.0); IgG Index, CSF 0.48 (<0.70); IgG, CSF 3.3 mg/dL (0.8-7.7); IgG, Serum 1090 mg/dL (600-1540); Synthesis Rate IgG, CSF -2.8 mg/24 h (-9.9 TO +3.3)
[2025-06-03 11:00] LABS: Albumin, Serum 2.4 g/dL (3.6-5.1)
[2025-06-03 11:03] LABS: Ceruloplasmin* 30 mg/dL (14-30); Copper* 129 mcg/dL (70-175)
[2025-06-04 19:53] LABS: HSV-1 DNA, CSF NOT DETECTED copies/mL; HSV-1 DNA, CSF Source SERUM; West Nile Virus (IgG), CSF <1.30
[2025-06-05 06:26] LABS: VDRL, CSF Qual* NON-REACTIVE
[2025-06-05 06:27] LABS: HSV-2 DNA, CSF NOT DETECTED copies/mL; West Nile Virus (IgM), CSF <0.90
[2025-06-06 06:17] LABS: Angiotensin Convert Enz, CSF* <5 U/L (< OR = 15); Oligoclonal Bands, CSF* PRESENT (ABSENT)
== END 2025-05-31 18:20 | disposition home health service (06) | DRG 461 ==
LOC: SERX 10:19 → SERHOLD 10:37 → S3NX 17:53 → S2SX 05-18 12:01 → S3NX 05-18 15:56
PROVIDERS: Internal Medicine; Internal Medicine Infectious Disease; Psychiatry & Neurology Neurology; Student in an Organized Health Care Education/Training Program; Urology; Admitting Provider Internal Medicine; Emergency Provider Family Medicine; Visit Provider Internal Medicine
PROC: 0TJB8ZZ Inspection of Bladder, Via Natural or Artificial Opening Endoscopic (ICD-10-PCS; CPT 52000; principal; 2025-05-22 12:45)
DX: C67.9 Malignant neoplasm of bladder, unspecified (principal); N17.9 Acute kidney failure, unspecified; W19.XXXA Unspecified fall, initial encounter; D63.8 Anemia in other chronic diseases classified elsewhere; E21.3 Hyperparathyroidism, unspecified; E87.20 Acidosis, unspecified; F41.9 Anxiety disorder, unspecified; G24.01 Drug induced subacute dyskinesia; G25.5 Other chorea; G25.81 Restless legs syndrome; J18.9 Pneumonia, unspecified organism; Y99.0 Civilian activity done for income or pay; R31.0 Gross hematuria; N18.6 End stage renal disease; N13.30 Unspecified hydronephrosis; N40.0 Benign prostatic hyperplasia without lower urinary tract symptoms; Z16.19 Resistance to other specified beta lactam antibiotics; Z59.71 Insufficient health insurance coverage; Z79.899 Other long term (current) drug therapy; Z87.440 Personal history of urinary (tract) infections; Z87.891 Personal history of nicotine dependence; Z91.81 History of falling; Z93.6 Other artificial openings of urinary tract status; Z99.2 Dependence on renal dialysis
CPT/HCPCS: 36415; 70450; 70551; 71045; 71260; 72125; 74176; 74425; 75984; 76770; 76937; 77001; 78708; 80053; 80061; 80069; 80074; 80202; 80307; 81001; 82040; 82042; 82140; 82164; 82378; 82390; 82525; 82550; 82570; 82784; 82945; 83036; 83605; 83735; 83916; 83935; 83970; 84100; 84145; 84153; 84154; 84156; 84157; 84300; 84439; 84443; 85014; 85018; 85025; 85610; 85652; 85730; 86140; 86171; 86255; 86301; 86580; 86592; 86703; 86706; 86788; 86789; 86850; 86900; 86901; 86923; 87040; 87077; 87081; 87086; 87186; 87502; 87530; 89051; 93005; 93225; 93306; 96361; 96374; 96375; 97162; A4217; A4649; A9562; C1729; C1769; C1894; J0696; J1171; J1200; J1630; J1642; J1643; J2250; J2371; J2470; J2704; J3010; J3370; J3373; J3375; J3475; J3490; J7030; J7050; J7120; P9016; Q5105; Q5106; Q9958; Q9967; A9270; J1596

== ENCOUNTER 2025-06-17 18:08 | Observation (INO) | payer MEDICAID, SELFPAY ==
[2025-06-17 18:46] VITALS: BP 110/63; PULSE 100; RESP 18; TEMP 36.9; O2SAT 99
--- NOTE | 2025-06-17 18:54 | XR_ITS ---
Examination: CT abdomen and pelvis without contrast. Coronal 3-D reconstructions. Sagittal 2-D reconstructions. Date and time of exam:June 17, 20252057 hours INDICATIONS: June 17, 20252056 hours Comparison May 16, 2025 INDICATIONS: History hydronephrosis with prominent abdominal and pelvic lymphadenopathy CTDI: vol (mGy): 6.13 DLP: (mGycm): 351 Technique: Axial images of the abdomen have been obtained, 3 mm slice thickness Intravenous contrast material has not been administered. Low dose protocols were performed. One or more of the following dose reduction techniques were used; automated exposure control, adjustment of the mA and/or KV according to patient size, use of iterative reconstruction technique. Findings: Unchanged left lobe liver versus No biliary tract dilatation Contracted gallbladder Detail is reduced with patient motion and lack of intravenous contrast Right nephrostomy tube satisfactory positioned No left nephrostomy tube with mild left hydronephrosis Extensive abdominal lymphadenopathy pelvic lymphadenopathy again noted No bowel obstruction Gross thickening of the urinary bladder wall Perirectal inflammatory change The osseous structures are intact IMPRESSION: No left nephrostomy tube with mild left hydronephrosis
--- NOTE | 2025-06-17 18:56 | PD.EDRME ---
Rapid Medical Screening Exam RME Arrival date/time: 06/17/25 18:08 This is a case of 64-year-old male with history of kidney stone came in in the emergency room due to nephrostomy tube malfunction patient have to nephrostomy tube in the left side of the nephrostomy tube fell off was decided to start consult here in the emergency room patient is currently complaining of abdominal pain and flank pain no fever no chills no nausea no vomiting Chief Complaint: General Adult/Misc Complain Time Seen by Provider: 06/17/25 18:25 Vital signs: Vital Signs Temperature 98.4 F 06/17/25 18:46 Pulse Rate 100 06/17/25 18:46 Respiratory Rate 18 06/17/25 18:46 Blood Pressure 110/63 06/17/25 18:46 Pulse Oximetry (%) 99 06/17/25 18:46 Oxygen Delivery Method Room Air 06/17/25 18:46
[2025-06-17 19:30] LABS: Basophils # (Auto) 0.1 Thou/mm3 (0.0-0.2); Basophils % (Auto) 1 % (0-2.5); Eosinophils # (Auto) 0.1 Thou/mm3 (0.0-0.5); Eosinophils % (Auto) 1 % (0-10); Hematocrit 30.9 % (41.0-53.0); Hemoglobin 9.8 g/dL (13.5-16.0); Immature Granulocytes Auto 0.04 Thou/mm3 (0.00-0.00); Lymphocytes # (Auto) 1.0 Thou/mm3 (1.0-4.8); Lymphocytes % (Auto) 9 % (10-50); Mean Corpuscular HGB Conc 31.7 g/dl (31.0-37.0); Mean Corpuscular Hemoglobin 29.1 pg (25.0-35.0); Mean Corpuscular Volume 92 fL (80-100); Monocytes # (Auto) 0.9 Thou/mm3 (0.0-0.8); Monocytes % (Auto) 8 % (0-12); Neutrophils # (Auto) 9.4 Thou/mm3 (1.8-7.7); Neutrophils % (Auto) 82 % (37-80); Nucleated Red Blood Cell # 0.00 Thou/mm3 (0.00-0.00); Nucleated Red Blood Cell % 0 /100 WBC (0); Platelet Count 298 Thou/mm3 (140-440); RDW Standard Deviation 45.1 fL (35.1-43.9); Red Blood Count 3.37 Miln/mm3 (4.50-5.90); White Blood Count 11.5 Thou/mm3 (3.8-10.6)
[2025-06-17 19:48] LABS: Alanine Aminotransferase 31 U/L (10-49); Albumin, Serum 3.8 gm/dL (3.4-4.8); Albumin/Globulin Ratio 1.3 (1.2-2.2); Alkaline Phosphatase 128 U/L (46-116); Anion Gap 10 (7-16); Aspartate Amino Transferase 31 U/L (0-34); BUN/Creatinine Ratio 15 Ratio (12-20); Bilirubin,Total 0.2 mg/dL (0.3-1.2); Blood Urea Nitrogen 40 mg/dL (9-23); Calcium 9.2 mg/dL (8.3-10.6); Calcium (Corrected) 9.4 mg/dL (8.5-10.1); Carbon Dioxide 25.5 mMol/L (20.0-31.0); Chloride 102 mMol/L (98-107); Creatinine (Component) 2.6 mg/dL (0.6-1.3); Globulin 2.9 gm/dL (2.3-3.5); Glucose 104 mg/dL (74-106); Osmolality,Calculated 283 (275-295); Potassium 4.1 mMol/L (3.4-5.1); Sodium 137 mMol/L (136-145); Total Protein 6.7 gm/dL (5.7-8.2); eGFR 27 See Note
[2025-06-17 21:44] VITALS: BP 144/68; PULSE 84; RESP 18; TEMP 37.2; O2SAT 96
--- NOTE | 2025-06-17 23:46 | EDNOTE_ITS ---
ED Male Genitalurinary RME/HPI General Chief complaint: General Adult/Misc Complain Stated complaint: L) NEPHROSTOMY TUBE CAME OUT Time Seen by Provider: 06/17/25 18:25 Arrival date/time: 06/17/25 18:08 RME / HPI RME / HPI Narrative: 06/17/25 18:08 This is a case of 64-year-old male with history of kidney stone came in in the emergency room due to nephrostomy tube malfunction patient have to nephrostomy tube in the left side of the nephrostomy tube fell off was decided to start consult here in the emergency room patient is currently complaining of abdominal pain and flank pain no fever no chills no nausea no vomiting -------- See MDM for HPI documentation. Related Data Previous Rx's ?Medication ?Instructions ?Recorded carbamazepine 200 mg tablet 200 mg PO TID #60 tabs melatonin 3 mg tablet 3 mg PO HS PRN insomnia #90 tabs 05/29/25 midodrine 5 mg tablet 5 mg PO TID PRN sbp < 110 #3 0 tabs 05/29/25 pantoprazole 40 mg tablet,delayed 40 mg PO QDAY #30 ta bs 05/29/25 release Allergies Allergy/AdvReac Type Severity Reaction Status Date / Time No Known Allergies Allergy Verified 06/17/25 18:12 Review of Systems Review of Systems Systems Reviewed: All systems reviewed, normal except as documented ED Exam Narrative Physical exam: See MDM for physical exam documentation. Course Quality Measures none Orders Category Date Time Status Saline [Insert IV] NOW Care 06/17/25 23:58 Active Consult to Nephrology Stat Cons 06/18/25 01:[address] abdomen pelvis wo con Stat Exams 06/17/25 18:54 Completed XR chest 1V portable Stat Exams 06/17/25 23:58 Taken CBC Stat Lab 06/17/25 19:13 Completed CMP [Comprehensive Metabolic Panel] Stat Lab 06/17/25 19:13 Completed Magnesium Stat Lab 06/17/25 23:59 Completed PT [Prothrombin Time with INR] Stat Lab 06/17/25 23:59 Completed PTT [Partial Thromboplastin Time] Stat Lab 06/17/25 23:59 Completed UA, C/S IF [Urinalysis, C/S if Indicated] Stat Lab 06/18/25 01:25 Completed Urine Culture Stat Lab 06/18/25 01:25 Received Vital Signs Vital signs: Vital Signs Temperature 98.4 F 06/17/25 18:46 Pulse Rate 100 06/17/25 18:46 Respiratory Rate 18 06/17/25 18:46 Blood Pressure 110/63 06/17/25 18:46 Pulse Oximetry (%) 99 06/17/25 18:46 Oxygen Delivery Method Room Air 06/17/25 18:46 Urogenital - Male MDM Narrative MDM Narrative:: This section includes all my notes and documentations, including HPI, PE, and ED course. Devin Carrion MD HPI: 64yo male who was recently diagnosed with invasive urothelial carcinoma, ESRD on hemodialysis here after his left nephrostomy tube accidentally came out this afternoon, several hours ago. No fever or abdominal pain. No other complaints reported. ROS: All negative except as documented in HPI. Physical Exam: General: Alert. No acute distress when remaining still. Eyes: Conjunctivae and lids clear. ENT: No nasal congestion. Neck: Supple. Heart: RRR. Lungs: No respiratory distress. Good air movement. No rhonchi, wheezing, rales. Abdomen: Soft and nontender. Normal bowel sounds. No distension. No rebound or guarding. Back: No CVA tenderness. Skin: Warm and dry. Neuro: Alert with no neurofocal deficits. I reviewed all diagnostic test results. My review of the CT abdomen pelvis report is no left nephrostomy tube with mild left hydronephrosis. Blood tests remarkable for Creatinine 2.6. UA showed positive leukocyte esterase, 2230 RBC, 157 WBC, and 1+ bacteria. At this point, diagnoses include: Dislodged nephrostomy tube Dialysis patient UTI I discussed the case with Dr. Santana (patient's radioisotope production operator) and our hospitalist. About the presentation and exam and diagnostics and treatments here. And need of further care in the hospital. Will accept the patient. Devin Carrion MD Patient data External records reviewed:: [facility] previous records (Per chart review, patient was admitted here on 05/16/25 for CORINA.) Clinical information provided by:: spouse Social determinants that could affect healthcare access:: none Patient has the following chronic illnesses:: Invasive urothelial carcinoma, ESRD on hemodialysis How is presenting disease/condition affected by chronic disease/condition?: uneffected by Evaluation data The following diagnostics were reviewed and interpreted by me:: lab results and radiology exam(s) Lab and/or radiology exams considered but not ordered:: none Interpretation Summary: I reviewed all diagnostic test results. My review of the CT abdomen pelvis report is no left nephrostomy tube with mild left hydronephrosis. Blood tests remarkable for Creatinine 2.6. UA showed positive leukocyte esterase, 2230 RBC, 157 WBC, and 1+ bacteria. Medications / Prescriptions Medications or Prescriptions considered but not ordered:: none Medication administrations:: Medication Administration History Acetaminophen (Acetaminophen 325 Mg Tablet) 650 mg PO Q6H PRN PRN Reason: Fever >100.4 or pain Stop: 07/18/25 02:25 Hydrocodone Bitart/Acetaminophen (Hydrocodone/Apap 5/325 Tablet) 1 tab PO Q4HR PRN PRN Reason: PAIN SCALE 4-10(Mod-Sev Stop: 06/23/25 02:25 Carbamazepine (Carbamazepine 200 Mg Tablet) 200 mg PO TID SHADY Stop: 07/18/25 05:59 Docusate Sodium (Docusate Sod 100 Mg Capsule) 100 mg PO QDAY PRN; Protocol PRN Reason: CONSTIPATION Stop: 07/18/25 02:25 Midodrine (Midodrine 5 Mg Tablet) 5 mg PO TID PRN PRN Reason: sbp < 110 Stop: 07/18/25 02:30 Ondansetron HCl (Ondansetron Inj 2 Mg/Ml Inj 2 Ml) 4 mg IVP Q6H PRN; Protocol PRN Reason: NAUSEA OR VOMITING Stop: 07/18/25 02:25 Sennosides (Senna Tablet) 1 tab PO QDAY PRN; Protocol PRN Reason: constipation Stop: 07/18/25 02:25 No medication ordered by me. Consultations Consultation(s) initiated? (list below): Yes Consultation #1 (Physician, Specialty, Details): I discussed the case with Dr. Santana (patient's radioisotope production operator) and our hospitalist. About the presentation and exam and diagnostics and treatments here. And need of further care in the hospital. Will accept the patient. Diagnosis Urogenital Male Differential Diagnosis: urinary tract infection, acute retention of urine and other (Ureteral stone, pyelonephritis, dislodged nephrostomy) Most likely diagnosis given after review of the tests above:: At this point, diagnoses include: Dislodged nephrostomy tube Dialysis patient UTI Admission Indicated Admission indicated?: indicated Explain why admission is indicated or not indicated:: Dislodged nephrostomy tube Dialysis patient UTI Admission Request Was there a request for admission?: Yes Admission Attestation Admission request attestation: Discussed case with Hospitalist service regarding admission. Discussed patients ED course, exam findings, labs, and radiology results. The Hospitalist [agrees] to accept the patient for admission. Disposition Plan Disposition Plan: Admit Discharge Plan Plan Patient Disposition: Admit Acute Care w/in Hospital Problem List Clinical Impression: Displacement of nephrostomy tube, Dialysis patient, UTI (urinary tract infection)
--- NOTE | 2025-06-17 23:58 | XR_ITS ---
Examination: AP chest single view Technique one AP portable upright chest single view Date and time: June 18, 2025 0026 hours, comparison May 18, 2025 INDICATIONS: Shortness of breath today. FINDINGS: Accentuation basilar bronchovascular markings. Normal heart size. Bilateral subclavian Port-A-Cath tip proximal SVC IMPRESSION: Basilar bronchitis pattern
[2025-06-18 00:19] VITALS: BP 119/63; PULSE 79; RESP 19; TEMP 37.2; O2SAT 97
[2025-06-18 01:48] LABS: INR 1.0 (0.9-1.3); Partial Thromboplastin Time 28.4 Seconds (22.0-36.0); Prothrombin Time 11.1 Seconds (9.0-12.2)
[2025-06-18 01:49] LABS: Collection Type, Urine Clean Catch; Squamous Epithelial Cell,Urine 0 /hpf (0-5)
[2025-06-18 01:49] LABS: Magnesium 1.6 mg/dL (1.6-2.6)
[2025-06-18 02:12] LABS: Bacteria,Urine 1+; Bilirubin,Urine Negative (Negative); Blood,Urine 3+ (Negative); Glucose, Urine Negative (Negative); Ketones,Urine Negative (Negative); Leukocyte Esterase,Urine Positive (Negative); Nitrite,Urine Negative (Negative); PH,Urine 8.0 (5.0-7.0); Protein,Urine 3+ (Neg - Trace); RBC,Urine 2230 /hpf (0-3); Specific Gravity,Urine 1.020 (1.001-1.035); Urobilinogen,Urine Negative mg/dL (0.0-1.0); WBC,Urine 157 /hpf (0-5)
[2025-06-18 02:14] LABS: Clarity,Urine Turbid (Clear/Hazy); Color,Urine Lt Orange (Lt Yel-Yel); Culture Indicated,Urine Yes
--- NOTE | 2025-06-18 02:46 | PD.RESHP ---
Documentation for date of: 06/18/25 HPI History of Present Illness Chief complaint: Nephrostomy tube replacement History of present illness: 64 y/o M with PMHx significant for invasive urothelial carcinoma, with bilateral nephrostomy tubes for hydronephrosis, ESRD (Tuesday/Tuesday) presents with chief complaint of needing replacement for left nephrostomy tube. Patient was sitting down after dinner, when he got up to move his left nephrostomy tube came out. Per patient and at bedside there was very little bleeding from site of nephrostomy tube. Patient denies fevers, chills, chest pain, shortness of breath, nausea, vomiting. ED COURSE: Labs significant for WBC 11.5, BUN 40, creatinine 2.6, EGFR 27. Imaging significant for: CT showing mild left hydronephrosis. Bladder wall thickening and extensive abdominal/pelvic lymphadenopathy present, seen on previous imaging. Chest x-ray negative. Dr. Santana consulted by ED, recommended patient be admitted so he can receive dialysis inpatient before discharge following nephrostomy tube replacement tomorrow. PMH: Invasive urothelial carcinoma, ESRD PSH: None SH: Denies alcohol or illicit drug use. 30+ pack year smoking history. Allergies:?None Medications: Carbamazepine, midodrine Review of Systems Review of Systems Systems Reviewed: All systems reviewed, normal except as documented Past Medical History Past Medical History Comments PMH COMMENT: PMH: Invasive urothelial carcinoma, ESRD PSH: None SH: Denies alcohol or illicit drug use. 30+ pack year smoking history. Allergies:?None Medications: Carbamazepine, midodrine Exam Vital Signs Temp Pulse Resp BP Pulse Ox O2 Del Method 99 F 79 19 119/63 97 Room Air 06/18/25 00:19 06/18/25 00:19 06/18/25 00:19 06/18/25 00:19 06/18/25 00:19 06/18/25 00:19 Narrative Exam PE: Gen: Well-developed and well-nourished. Thin. HEENT: NCAT, PERRLA, EOMI, MMM, anicteric conjunctivae. CVS: normal S1 and S2. RRR. No M/R/G. Resp: CTA B/L. No rhonchi, rales, crackles or wheezing. Abd: soft, non-distended. BS+ in all 4 quadrants. Mild diffuse tenderness. MSK: Good ROM in BUE & BLE. No edema or rash. Right nephrostomy tube in place. Site of previous left nephrostomy tube, no bleeding noted. Neuro: CN II-XII grossly intact. Strength 5/5 in BUE & BLE. Alert and oriented x3. Choreiform movements. Slurred speech, patient for patient. Psych: appropriate mood and affect. Results: Labs 06/17/25 19:13 06/17/25 19:13 Labs: Short CBC 06/17/25 Range/Units 19:13 WBC 11.5 H (3.8-10.6) Thou/mm3 Hgb 9.8 L (13.5-16.0) g/dL Hct 30.9 L (41.0-53.0) % Plt Count 298 D (140-440) Thou/mm3 BMP 06/17/25 19:13 Sodium 137 Potassium 4.1 Chloride 102 Carbon Dioxide 25.5 BUN 40 H Creatinine 2.6 H Glucose 104 Calcium 9.2 Liver Function 06/17/25 Range/Units 19:13 Total Bilirubin 0.2 L (0.3-1.2) mg/dL AST 31 (0-34) U/L ALT 31 (10-49) U/L Alkaline Phosphatase 128 H (46-116) U/L Albumin 3.8 (3.4-4.8) gm/dL Urine 06/18/25 Range/Units 01:25 Urine Color Lt [place] A (Lt Yel-Yel) Urine Clarity Turbid A (Clear/Hazy) Urine pH 8.0 H (5.0-7.0) Ur Specific [place] 1.020 (1.001-1.035) Urine Protein 3+ A (Neg - Trace) Urine Glucose (UA) Negative (Negative) Quality Measures Quality Measures VTE prophylaxis Medications Home Medications and Allergies Allergies Allergy/AdvReac Type Severity Reaction Status Date / Time No Known Allergies Allergy Verified 06/17/25 18:12 Visit Medications Acetaminophen (Acetaminophen 325 Mg Tablet) 650 mg PO Q6H PRN PRN Reason: Fever >100.4 or pain Stop: 07/18/25 02:25 Hydrocodone Bitart/Acetaminophen (Hydrocodone/Apap 5/325 Tablet) 1 tab PO Q4HR PRN PRN Reason: PAIN SCALE 4-10(Mod-Sev Stop: 06/23/25 02:25 Carbamazepine (Carbamazepine 200 Mg Tablet) 200 mg PO TID SHADY Stop: 07/18/25 05:59 Docusate Sodium (Docusate Sod 100 Mg Capsule) 100 mg PO QDAY PRN; Protocol PRN Reason: CONSTIPATION Stop: 07/18/25 02:25 Midodrine (Midodrine 5 Mg Tablet) 5 mg PO TID PRN PRN Reason: sbp < 110 Stop: 07/18/25 02:30 Ondansetron HCl (Ondansetron Inj 2 Mg/Ml Inj 2 Ml) 4 mg IVP Q6H PRN; Protocol PRN Reason: NAUSEA OR VOMITING Stop: 07/18/25 02:25 Sennosides (Senna Tablet) 1 tab PO QDAY PRN; Protocol PRN Reason: constipation Stop: 07/18/25 02:25 Assessment & Plan Plan 64 y/o M with PMHx significant for invasive urothelial carcinoma, with bilateral nephrostomy tubes for hydronephrosis, ESRD (Tuesday/Tuesday) presents with chief complaint of needing replacement for left nephrostomy tube, admitted as observation for placement of left nephrostomy tube and dialysis. #Urothelial carcinoma with bilateral hydronephrosis #Displaced left nephrostomy tube Patient has recent history of urothelial carcinoma, with bilateral hydronephrosis. Patient has Araiza cath in place draining well. Patient had bilateral nephrostomy tubes placed at previous visits, draining well. Left nephrostomy tube fell prior to admission, minimal bleeding noted. CT showed mild left hydronephrosis. - IR to replace left nephrostomy tube in the morning - [place] as needed for pain #ESRD (Tuesday/Tuesday) #Anemia of chronic disease Patient has dialysis due to ESRD secondary to obstructive nephropathy. Dr. 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 - Dialysis as per patient's usual schedule - Renally dose meds as needed - Resume home midodrine 5 mg p.o. 3 times daily as needed for hypotension #Choreiform like movements Patient noted to have choreiform like movements. Have been present for several months, patient has been eval by Dr. Castellon previously. - Resume home carbamazepine 200 mg p.o. 3 times daily DVT prophylaxis: SCDs GI prophylaxis: None Diet: N.p.o. pending nephrostomy tube replacement Lines: Peripheral IV, Araiza cath, right nephrostomy tube Code status: Full code Plan of care discussed with attending Dr. Janet Cross MD PGY?2 Attending Provider Attestation/Addendum After examination of the patient and review of the clinical data I feel that this patient needs admission to the hospital for further treatment/evaluation. I Renetta Gonzales MD, attest that I was physically present for wallace portions of evaluation, and examined patient, labs, imagings and plan of care were discussed with IM residents team, and I agree with the findings and plans documented above.
[2025-06-18 03:13] VITALS: BP 106/59; PULSE 68; RESP 18; TEMP 36.7; O2SAT 98
[2025-06-18 04:30] VITALS: BP 125/70; PULSE 66; RESP 17; TEMP 36.6; O2SAT 98
--- NOTE | 2025-06-18 04:34 | PC.NURSE ---
Report given to JOSE Flannery
[2025-06-18 05:03] VITALS: BMI 15.6
[2025-06-18 05:08] VITALS: BP 97/61; PULSE 69; RESP 17; TEMP 36.6; O2SAT 100
[2025-06-18 06:43] LABS: Basophils # (Auto) 0.1 Thou/mm3 (0.0-0.2); Basophils % (Auto) 1 % (0-2.5); Eosinophils # (Auto) 0.2 Thou/mm3 (0.0-0.5); Eosinophils % (Auto) 2 % (0-10); Hematocrit 28.7 % (41.0-53.0); Hemoglobin 8.9 g/dL (13.5-16.0); Immature Granulocytes Auto 0.05 Thou/mm3 (0.00-0.00); Lymphocytes # (Auto) 1.0 Thou/mm3 (1.0-4.8); Lymphocytes % (Auto) 12 % (10-50); Mean Corpuscular HGB Conc 31.0 g/dl (31.0-37.0); Mean Corpuscular Hemoglobin 28.9 pg (25.0-35.0); Mean Corpuscular Volume 93 fL (80-100); Monocytes # (Auto) 0.8 Thou/mm3 (0.0-0.8); Monocytes % (Auto) 9 % (0-12); Neutrophils # (Auto) 6.8 Thou/mm3 (1.8-7.7); Neutrophils % (Auto) 76 % (37-80); Nucleated Red Blood Cell # 0.00 Thou/mm3 (0.00-0.00); Nucleated Red Blood Cell % 0 /100 WBC (0); Platelet Count 278 Thou/mm3 (140-440); RDW Standard Deviation 45.9 fL (35.1-43.9); Red Blood Count 3.08 Miln/mm3 (4.50-5.90); White Blood Count 9.0 Thou/mm3 (3.8-10.6)
[2025-06-18 07:09] LABS: Anion Gap 11 (7-16); BUN/Creatinine Ratio 16 Ratio (12-20); Blood Urea Nitrogen 40 mg/dL (9-23); Calcium 9.3 mg/dL (8.3-10.6); Carbon Dioxide 26.4 mMol/L (20.0-31.0); Chloride 103 mMol/L (98-107); Creatinine (Component) 2.5 mg/dL (0.6-1.3); Estimated Creatinine Clearance 24.6 mL/min (>60); Glucose 99 mg/dL (74-106); Magnesium 1.6 mg/dL (1.6-2.6); Osmolality,Calculated 289 (275-295); Phosphorous 3.5 mg/dL (2.4-5.1); Potassium 3.8 mMol/L (3.4-5.1); Sodium 140 mMol/L (136-145); eGFR 28 See Note
[2025-06-18 08:00] VITALS: BP 122/88; PULSE 78; RESP 16; TEMP 36.9; O2SAT 98
--- NOTE | 2025-06-18 09:35 | PC.NURSE ---
Notified Dr Shepard that patient does not have enough fluid to reinsert nephrostomy. Per Dr Moncada recomendation is to come in as an outpatient sometime next week.
--- NOTE | 2025-06-18 10:46 | PD.RESCONSUL ---
HPI Data of Consult Consult date: 06/18/25 Requesting Physician: Renetta Gonzales MD Admitting Provider: Renetta Gonzales MD Attending Provider: Renetta Gonzales MD Primary Care Provider: Physician No Primary/Family Consult Narrative Reason for consult: hx ESRD (tuesday/tuesday) L nephrostomy tube came out History of present illness: per chart review Mr Meade is a 64 yo gentleman with a hx of invasive urothelial carcinoma, with bilateral nephrostomy tubes for hydronephrosis, ESRD (Tuesday/Tuesday) presents with chief complaint of needing replacement for left nephrostomy tube. Patient was sitting down after dinner, when he got up to move his left nephrostomy tube came out. Patient denies fevers, chills, chest pain, shortness of breath, nausea, vomiting. ED COURSE: Labs significant for WBC 11.5, BUN 40, creatinine 2.6, EGFR 27. Imaging significant for: CT showing mild left hydronephrosis. Bladder wall thickening and extensive abdominal/pelvic lymphadenopathy present, seen on previous imaging. Chest x-ray negative. Dr. Santana consulted by ED, recommended patient be admitted so he can receive dialysis inpatient before discharge following nephrostomy tube replacement tomorrow. PMH: Invasive urothelial carcinoma, ESRD PSH: None SH: Denies alcohol or illicit drug use. 30+ pack year smoking history. Allergies:?None Medications: Carbamazepine, midodrine 06/18/2025: Nephrology consulted, patient seen and examined at bedside. was not present during time of interview. he reiterates that his L nephrostomy tube was removed when he got up from eating dinner. He denies any additional complaints, his diskinetic movements are apparent on exam, pt has suprapubic catheter and R nephrostomy tube that is draining clear urine. BP 90s/60s, K 3.8, BUN 40, Cr 2.5, plan to hold HD today, per primary team, Dr. Rodriguez will replace the L nephrostomy tube outpatient this week, on CTAP there is only mild hydronephrosis on the Left kidney. plan to discharge per primary team today cc:: cc: Renetta Gonzales MD Review of Systems Review of Systems Narrative Review of Systems: no fevers, chills, abdominal pain, diarrhea, vomiting, constipation. Patient has involuntary jerking movements Musculoskeletal Musculoskeletal: Reports other (diskinetic movements) Past Medical History Past Medical History NEUROLOGIC: Negative Neurological Disorders or Seizures CARDIAC: Negative Cardiac Disorders or Congestive Heart Failure RESPIRATORY: Negative Chronic Obstructive Pulmonary Disease (COPD) GASTROINTESTINAL: Negative Gastrointestinal Disorders GENITOURINARY: Positive Genitourinary Disorders, Renal Disease and Dialysis (Tuesday, Tuesday) ENDOCRINE: Negative Endocrine Disorders, Diabetes Mellitus Type 1 or Diabetes Mellitus Type 2 HEMATOLOGIC: Negative Blood Disorders OTHER HISTORY: Positive Cancer (Bladder cancer); Negative Blood Transfusions or Anesthesia Reactions Family History FAMILY HISTORY: Negative Family Cardiac Disorders Social History SMOKING STATUS: Never smoker SUBSTANCE USE: does not use Past Medical History Comments PMH COMMENT: PMH: Invasive urothelial carcinoma, ESRD PSH: None SH: Denies alcohol or illicit drug use. 30+ pack year smoking history. Allergies:?None Medications: Carbamazepine, midodrine Exam Vital Signs Temp Pulse Resp BP Pulse Ox O2 Del Method 98.4 F 78 16 122/88 H 98 Room Air 06/18/25 08:00 06/18/25 08:00 06/18/25 08:00 06/18/25 08:00 06/18/25 08:00 06/18/25 08:00 Narrative Exam GENERAL APPEARANCE: Thin, temporal wasting noted, appears older than stated age NECK: Neck supple, CARDIOVASCULAR: RRR, no murmurs LUNGS/CHEST: Chest clear to auscultation. No rales, rhonchi, wheezing ABDOMEN: Soft, NTND. Normal bowel sounds. : R nephrostomy tube draining clear urine. Suprapubic catheter in place draining clear urine. EXTREMITIES: No edema, clubbing or cyanosis. SKIN: Skin exam normal without any rashes. R IJ dialysis catheter in place NEUROLOGICAL : Able to move his extremities, able to follow commands. diskinetic movements Results Labs 06/18/25 06:00 06/18/25 06:00 Labs: Short CBC 06/17/25 06/18/25 Range/Units 19:13 06:00 WBC 11.5 H 9.0 (3.8-10.6) Thou/mm3 Hgb 9.8 L 8.9 L (13.5-16.0) g/dL Hct 30.9 L 28.7 L (41.0-53.0) % Plt Count 298 D 278 (140-440) Thou/mm3 BMP 06/17/25 06/18/25 19:13 06:00 Sodium 137 140 Potassium 4.1 3.8 Chloride 102 103 Carbon Dioxide 25.5 26.4 BUN 40 H 40 H Creatinine 2.6 H 2.5 H Glucose 104 99 Calcium 9.2 9.3 Liver Function 06/17/25 Range/Units 19:13 Total Bilirubin 0.2 L (0.3-1.2) mg/dL AST 31 (0-34) U/L ALT 31 (10-49) U/L Alkaline Phosphatase 128 H (46-116) U/L Albumin 3.8 (3.4-4.8) gm/dL Urine 06/18/25 Range/Units 01:25 Urine Color Lt [place] A (Lt Yel-Yel) Urine Clarity Turbid A (Clear/Hazy) Urine pH 8.0 H (5.0-7.0) Ur Specific [place] 1.020 (1.001-1.035) Urine Protein 3+ A (Neg - Trace) Urine Glucose (UA) Negative (Negative) Quality Measures Quality Measures VTE prophylaxis Medications Home Medications and Allergies Allergies Allergy/AdvReac Type Severity Reaction Status Date / Time No Known Allergies Allergy Verified 06/17/25 18:12 Visit Medications Acetaminophen (Acetaminophen 325 Mg Tablet) 650 mg PO Q6H PRN PRN Reason: Fever >100.4 or pain Stop: 07/18/25 02:25 Hydrocodone Bitart/Acetaminophen (Hydrocodone/Apap 5/325 Tablet) 1 tab PO Q4HR PRN PRN Reason: PAIN SCALE 4-10(Mod-Sev Stop: 06/23/25 02:25 Carbamazepine (Carbamazepine 200 Mg Tablet) 200 mg PO TID SHADY Stop: 07/18/25 05:59 Last Admin: 06/18/25 09:46 Dose: 200 mg Docusate Sodium (Docusate Sod 100 Mg Capsule) 100 mg PO QDAY PRN; Protocol PRN Reason: CONSTIPATION Stop: 07/18/25 02:25 Midodrine (Midodrine 5 Mg Tablet) 5 mg PO TID PRN PRN Reason: sbp < 110 Stop: 07/18/25 02:30 Ondansetron HCl (Ondansetron Inj 2 Mg/Ml Inj 2 Ml) 4 mg IVP Q6H PRN; Protocol PRN Reason: NAUSEA OR VOMITING Stop: 07/18/25 02:25 Sennosides (Senna Tablet) 1 tab PO QDAY PRN; Protocol PRN Reason: constipation Stop: 07/18/25 02:25 Assessment & Plan Plan Mr Meade is a 64 yo gentleman with a hx of invasive urothelial carcinoma, with bilateral nephrostomy tubes for hydronephrosis, ESRD (Tuesday/Tuesday) presented with chief complaint of needing replacement for left nephrostomy tube, CTAP with mild hydronephrosis of L kidney, plan to discharge per primary team and follow up outpatient for replacement of L nephrostomy tube. #ESRD on HD Tuesday and Tuesday BUN 40, Cr 2.5 pt has been adherant to HD schedule outpatient. Plan - Hold HD today #Mild Left hydronephrosis #Displaced left nephrostomy tube CTAP with mild hydronephrosis of L kidney, R nephrostomy tube in place - plan for discharge today per primary team, pt will follow up with Dr. Rodriguez for outpatient replacement of L nephrostomy tube #Urothelial carcinoma with bilateral hydronephrosis #Anemia of chronic disease #Choreiform vs diskinetic like movements #hypotension on midodrine - managment per primary team Plan discussed with nephrology attending Dr. Esther Varela MD Internal Medicine PGY-1 Attending Provider Attestation/Addendum Patient seen and examined with resident physician Dr. Varela. Note reviewed, agree with findings and recommendations. Labs reviewed. Hold off on dialysis today. Pending left nephrostomy tube replacement. Good urinary output. Hemoglobin 8.9, 3.8, creatinine 2.5 with a GFR 28. Hope there will be renal recovery. Urinalysis shows significant UTI.CT abdomen showed left hydronephrosis. Thank you Armen for allowing me to participate in the care of Mr. Meade
--- NOTE | 2025-06-18 11:40 | PC.SS ---
Amarjit Meade is a 64 year-old male admitted to [place] for L Nephrostomy Tube Replacement. SS conducted bedside contact with the patient to complete initial assessment and to discuss discharge planning. Role and reason explained. Patient confirmed demographic information. Patient identifies his Marisabel Meade [phone] as his surrogate decision maker. Pt states he is able to complete most ADL?s independent. Pt has a wheelchair at home; his helps assist him with needs. Pts PCP is Dr. Deborah Calabrese. Discharge options discussed and the pt wishes to return home.? Pt will provide transport. No further intervention required at this time, child protective services social worker would be available to address any further concerns. DC Plan: Home Contact: Marisabel Address: Confirmed on face sheet PCP: [place]
[2025-06-18 12:00] VITALS: BP 117/66; PULSE 59; RESP 17; TEMP 36.1; O2SAT 98
--- NOTE | 2025-06-18 12:23 | PC.NURSE ---
Patient is hungry I ordered him and diet and a late tray. Will DC patient as soon as he finishes his lunch.
--- NOTE | 2025-06-18 13:10 | PC.SS ---
Rounding: DC plan for today going home, no needs identified
--- NOTE | 2025-06-18 13:28 | ESDS_ITS ---
<Statement entered by Bruce Min MD - 06/18/25 19:54> Patient was seen and examined at bedside. I agree with the assessment and plan in this discharge note. - Patient's plan and care discussed with my attending, Dr. Jeffrey Min MD Internal Medicine PGY-3 Planned Discharge Date 06/18/25 DS: Providers Provider Date of admission: 06/18/25 02:26 Primary care physician: Physician No Primary/Family Admitting Provider: Renetta Gonzales MD Attending Provider on Admission: Renetta Gonzales MD Consults: 06/18/25 01:22 Consult to Nephrology Stat Comment: ESRD Consulting Provider: Ronel Santana 06/18/25 05:20 Referral Infection Control Routine Comment: Reason for Infection Control Referral: Readmitted within 30 days Current Dialysis Patient Attending Provider on DC: Deonte Murphy DO Discharging Provider: Deonte Murphy DO DS: Diagnosis Problem List Completed Was Problem List Reviewed/Reconciled?: Yes Hospital Course Hospital Course Hospital course: 64 y/o M with PMHx significant for invasive urothelial carcinoma, with bilateral nephrostomy tubes for hydronephrosis, ESRD (Tuesday/Tuesday) presents to [facility] with chief complaint of needing replacement for left nephrostomy tube. Dr. Santana consulted by ED, recommended patient be admitted so he can receive dialysis inpatient before discharge following nephrostomy tube replacement tomorrow. Patient's labs were significant for creatinine of 2.6 with BUN of 40. CT imaging showed mild left hydronephrosis; bladder wall thickening and extensive abdominal/pelvic lymphadenopathy present, seen on previous imaging. Chest x-ray negative. Dr. Moncada interventional radiology doctor was contacted for replacement of left nephrostomy tube, but he stated that given that the hydronephrosis is so mild, the chance of failure when placing nephrostomy tube is too high. Will schedule him outpatient with Dr. Moncada for next week evaluation for left nephrostomy tube placement. Nephrology stated that he will not need hemodialysis today and may be discharged from their point of view. Discharge Instructions Discharge instruction: ? Follow-up with your PCP within 1 week from discharge ? Follow-up with the kidney doctor within 1 week from discharge ? We tried to reinsert the catheter however it will not be feasible at this time, reassessment under advancing has to be done the next week for reinsertion of the nephrostomy tube in outpatient settings. ? In case of an emergency please call 911 or return to the ED as soon as possible ? Continue your medications as prescribed Admission Diagnosis #Urothelial carcinoma with bilateral hydronephrosis #Displaced left nephrostomy tube #ESRD (Tuesday/Tuesday) #Anemia of chronic disease #Choreiform like movements Patient plan of care was discussed with the attending physician, Dr. Murphy & senior resident Dr. Mechelle Shepard MD PGY-1 Time Spent with Patient Time attestation: Total time spent providing and/or coordinating discharge services: Time spent: Greater than 30 minutes Exam Vital Signs Temp Pulse Resp BP Pulse Ox O2 Del Method 97.0 F 59 L 17 117/66 98 Room Air 06/18/25 12:06/18/25 12:06/18/25 12:06/18/25 12:06/18/25 12:06/18/25 12:00 Narrative Exam Gen: No acute distress. A&Ox3 HEENT: NCAT, PERRLA, EOMI, MMM, anicteric conjunctivae. CVS: normal S1 and S2. RRR. No M/R/G. Resp: CTA B/L. No rhonchi, rales, crackles or wheezing. Abd: soft, non-distended. BS+ in all 4 quadrants. Mild diffuse tenderness. MSK: Good ROM in BUE & BLE. No edema or rash. Right nephrostomy tube in place. Site of previous left nephrostomy tube, no bleeding noted. Neuro: CN II-XII grossly intact. Strength 5/5 in BUE & BLE. Alert and oriented x3. Choreiform movements. Slurred speech, patient for patient. Psych: appropriate mood and affect. Discharge Plan Plan Patient Disposition: HOME (Self Care) Patient condition on transfer: Stable and Benefits outweigh risks Care Plan Goals: Discharge instruction: ? Follow-up with your PCP within 1 week from discharge ? Follow-up with the kidney doctor within 1 week from discharge ? We tried to reinsert the catheter however it will not be feasible at this time, reassessment has to be done the next week for reinsertion of the nephrostomy tube in outpatient settings. ? In case of an emergency please call 911 or return to the ED as soon as possible ? Continue your medications as prescribed Prescriptions/Referrals Prescriptions/Med Rec: Continued carbamazepine 200 mg tablet 200 mg PO TID Qty: 60 0RF melatonin 3 mg Tablet 3 mg PO HS PRN (Reason: insomnia) Qty: 90 0RF midodrine 5 mg Tablet 5 mg PO TID PRN (Reason: sbp < 110) Qty: 30 0RF pantoprazole 40 mg Tablet,Delayed Release (Dr/Ec) 40 mg PO QDAY Qty: 30 0RF Referrals: No Primary/Family,Physician [Primary Care Provider] - Patient/Caregiver Discharge Instructions Education Materials: Anatomy of the Male Urinary Tract Print Language: Swedish Stand Alone Forms: [facility] Award Info., Patient Portal Info Letter, Work/Release Restrictions Discharge Order Discharge Orders: Discharge (Routine); Ordered 06/18/25 Ordered By: Bruce Min Quality Discharge Quality Measures VTE prophylaxis MD Attestestation MD Attestation I have discussed and was present for the essential components of the discharge history, physical examination, diagnosis, and discharge treatment plan with the resident. I agree with the patient's discharge care as documented by the resident and amended herein by me. Armen Murphy, . The patient understood all discharge instructions, all questions were answered satisfactorily. The patient was instructed to return to the Emergency Department is symptoms worsened or persisted. Patient will need reevaluation next week with interventional radiology to reattempt nephrostomy tube placement. The hydronephrosis was so mild that there would have been approximately a 95% failure rate of tube reinsertion at this time hence we will reassess next week. The patient was stable, afebrile, tolerating p.o. intake and ambulatory at time of discharge home. Although this document has been carefully reviewed, there may still be some phonetic and other typographical errors. These errors are purely grammatical due to imperfections in the software program and should not be construed in any way to compromise the substance of the patient's medical care during this visit.
== END 2025-06-18 14:15 | disposition home or self-care (01) ==
LOC: SERX 22:50 → S3SX 06-18 09:10 → SERHOLD 06-18 09:12 → S3SX 06-18 09:13
PROVIDERS: Nurse Practitioner Family; Admitting Provider Student in an Organized Health Care Education/Training Program; Emergency Provider Emergency Medicine; Visit Provider Student in an Organized Health Care Education/Training Program
DX: T83.022A Displacement of nephrostomy catheter, initial encounter (principal); Y84.8 Other medical procedures as the cause of abnormal reaction of the patient, or of later complication, without mention of misadventure at the time of the procedure; C67.9 Malignant neoplasm of bladder, unspecified; N18.6 End stage renal disease; D63.1 Anemia in chronic kidney disease; Z99.2 Dependence on renal dialysis; N13.30 Unspecified hydronephrosis; R06.02 Shortness of breath
CPT/HCPCS: 36415; 71045; 74176; 80048; 80053; 81001; 83735; 84100; 85025; 85610; 85730; 87077; 87081; 87086; 87186; 99284; G0378; A9270

== ENCOUNTER 2025-07-18 09:29 | Outpatient (RCR) | payer MEDICAID, SELFPAY ==
--- NOTE | 2025-07-18 12:41 | CTCCONSULT_ITS ---
Patient: ERIC LONGORIA : 1960 MR#: [id number] Page 4 of 5 CONSULTATION NOTE DATE OF CONSULTATION: 07/18/2025 NAME: ERIC LONGORIA ACCOUNT: [id number] : 1960 AGE: 64 REFERRING PHYSICIAN: Deborah Peacock MD PRIMARY PHYSICIAN: REASON FOR VISIT: Establishing bladder cancer ONCOLOGY HISTORY: DIAGNOSIS: Bladder cancer DATE OF DIAGNOSIS: 05/19/2025 STAGE/TNM: T1 NX MX staging unknown TREATMENT HISTORY: Care?Plan Start?Date Cycle Day Intent HISTORY OF PRESENT ILLNESS: 64-year-old male with transuretheral resction of bladder . Patient had a CT scan dated April 2025 which showed extensive lymphadenopathy in the pelvic. Patient's pathology reviewed and showed no muscle involvement thus making it a T1 lesion. Patient's lymphadenopathy need to be evaluated to complete the staging. OTHER MEDICAL HISTORY/CONDITIONS: Bladder cancer dx 05/22/25 ESRD - on dialysis twice weekly - Dr. 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 Tobacco Use:?Quit 3 months ago - smoke 1 PPD x 10 yrs ETOH?Use:?Rarely Drug?Note:?Denies Social History Note:?Lives with and son MEDICATIONS: 1. melatonin - 3 mg 1 tab Every day before sleep 2. pantoprazole - 40 mg 1 tab Daily Medications Last Reconciled by Jasmin Betancur RN on 07/18/2025 ALLERGIES: REVIEW OF SYSTEMS: A complete 14-point review of systems was performed and is negative except as noted in interval history. PHYSICAL EXAMINATION: VITAL SIGNS: Temperature?97, B/P?143/84, Height?72?inches, Oxygen?Saturation?98% Weight?122?lbs PAIN: 0 - No pain ECOG Performance Status: 0 - Asymptomatic and fully active GENERAL APPEARANCE: Patient is in wheelchair accompanied by . Patient does not speak up. HEENT thin built male CARDIOVASCULAR: Not assessed. PULMONARY: Normal respiratory effort, no respiratory distress or use of accessory muscles, do not speak EXTREMITIES: No pedal edema or cyanosis. SKIN: Normal skin appearance. NEUROLOGIC: Alert and oriented to his name PSHYCHIATRIC: Patient at baseline has deficits of language LABORATORY DATA: I have personally reviewed and interpreted each of the patient?s relevant lab tests, abnormal findings are below: Date ASSESSMENT/PLAN: Bladder cancer Patient have T1 lesion as noted on pathology Complete staging not completed Patient need PET CT scan and possible biopsy of the lymph node to make sure if they are metastatic disease or pathological Will order PET scan and IR referral for biopsy of the pelvic lymph node to evaluate for metastatic disease ORDERS: Order # Description [id number] Comprehensive Metabolic Panel - 12 RETURN TO CLINIC: I reviewed the diagnosis, prognosis, and recommended treatment/procedure options with the patient (and/or their legal instruments sales representative), including the potential benefits, risks, side effects and alternative therapies. We also discussed the option of no treatment and the possibility of clinical trial participation, if applicable. All questions were addressed, and they demonstrated understanding. They provided informed consent to proceed with the proposed plan of care. BILLING AND COMPLIANCE: I reviewed external records from providers outside my specialty as summarized above. I spent a total of 50 minutes on this patient?s care on the day of their visit excluding time spent related to any billed procedures. This time includes time spent with the patient as well as time spent documenting in the medical record, reviewing patients records and tests, obtaining history, placing orders, communicating with other healthcare professionals, counseling the patient, family or caregiver, and/or care coordination for the diagnoses above. Electronically Signed by: Kenan Melchor MD T: 12:38 PM CC: PCP: Referring: Deborah Peacock This document was completed utilizing speech recognition software. Grammatical errors, random word insertions, pronoun errors, and incomplete sentences are an occasional consequence of this system due to software limitations, ambient noise, and hardware issues. Any formal questions or concerns about the content, text or information contained within the body of this dictation should be directly addressed to the provider for clarification.
== END 2025-07-30 23:59 | disposition home or self-care (01) ==
LOC: SCTC 09:29
PROVIDERS: PCP Physician Assistant; Referring Provider Physician Assistant; Visit Provider Internal Medicine Hematology & Oncology
DX: C67.9 Malignant neoplasm of bladder, unspecified (principal)
CPT/HCPCS: 99213; G0463

== ENCOUNTER 2025-08-31 06:53 | Emergency (ER) | payer MEDICAID, SELFPAY ==
[2025-08-31 07:21] VITALS: BP 98/54; PULSE 92; RESP 19; TEMP 36.8; O2SAT 95; BMI 16.2
--- NOTE | 2025-08-31 07:29 | PD.EDRME ---
Rapid Medical Screening Exam RME Arrival date/time: 08/31/25 06:53 This is a 64 y/o M with PMHx significant for invasive urothelial carcinoma, with bilateral nephrostomy tubes becvause of hydronephrosis. Pt states he had them placed in April and the one on the left fell out and now he only has the one on the roight which per patient is leaking. Pt has a hx ESRD and was getting dialysis but per patient is now making urine from nephrostomy and viveros catheter. Patient's urine from nephrostomy and Viveros catheter looks very cloudy and has foul odor. I have greeted and performed a focused initial assessment of this patient. Initial appropriate labs ordered at this time. A comprehensive ED assessment and evaluation of the patient and analysis of all test and completion of medical decision making process will be conducted by additional ED provider. Chief Complaint: General Adult/Misc Complain Time Seen by Provider: 08/31/25 07:10 Vital signs: Vital Signs Temperature 98.2 F 08/31/25 07:21 Pulse Rate 92 08/31/25 07:21 Respiratory Rate 19 08/31/25 07:21 Blood Pressure 98/54 L 08/31/25 07:21 Pulse Oximetry (%) 95 08/31/25 07:21 Oxygen Delivery Method Room Air 08/31/25 07:21 Exam: Alert and oriented. Breathing even and unlabored, GCS 15. Clinical Impression: This will need to likely replace urostomy tube Viveros catheter get a UA. CBC, blood cultures metabolic panel.
[2025-08-31 07:51] LABS: Lactate (Lactic Acid) 0.9 mMol/L (0.4-2.0)
[2025-08-31 07:54] LABS: Basophils # (Auto) 0.1 Thou/mm3 (0.0-0.2); Basophils % (Auto) 1 % (0-2.5); Eosinophils # (Auto) 0.2 Thou/mm3 (0.0-0.5); Eosinophils % (Auto) 2 % (0-10); Hematocrit 41.8 % (41.0-53.0); Hemoglobin 12.8 g/dL (13.5-16.0); Immature Granulocytes Auto 0.05 Thou/mm3 (0.00-0.00); Lymphocytes # (Auto) 1.2 Thou/mm3 (1.0-4.8); Lymphocytes % (Auto) 12 % (10-50); Mean Corpuscular HGB Conc 30.6 g/dl (31.0-37.0); Mean Corpuscular Hemoglobin 27.8 pg (25.0-35.0); Mean Corpuscular Volume 91 fL (80-100); Monocytes # (Auto) 0.7 Thou/mm3 (0.0-0.8); Monocytes % (Auto) 7 % (0-12); Neutrophils # (Auto) 7.4 Thou/mm3 (1.8-7.7); Neutrophils % (Auto) 77 % (37-80); Nucleated Red Blood Cell # 0.00 Thou/mm3 (0.00-0.00); Nucleated Red Blood Cell % 0 /100 WBC (0); Platelet Count 315 Thou/mm3 (140-440); RDW Standard Deviation 49.6 fL (35.1-43.9); Red Blood Count 4.60 Miln/mm3 (4.50-5.90); White Blood Count 9.5 Thou/mm3 (3.8-10.6)
[2025-08-31 08:11] VITALS: BP 139/83; PULSE 79; RESP 18; O2SAT 96
[2025-08-31 08:45] LABS: Alanine Aminotransferase 12 U/L (10-49); Albumin, Serum 4.5 gm/dL (3.4-4.8); Albumin/Globulin Ratio 1.4 (1.2-2.2); Alkaline Phosphatase 107 U/L (46-116); Anion Gap 13 (7-16); Aspartate Amino Transferase 18 U/L (0-34); BUN/Creatinine Ratio 14 Ratio (12-20); Bilirubin,Total 0.3 mg/dL (0.3-1.2); Blood Urea Nitrogen 34 mg/dL (9-23); Calcium 9.6 mg/dL (8.3-10.6); Calcium (Corrected) 9.6 mg/dL (8.5-10.1); Carbon Dioxide 23.4 mMol/L (20.0-31.0); Chloride 104 mMol/L (98-107); Creatinine (Component) 2.4 mg/dL (0.6-1.3); Estimated Creatinine Clearance 24.6 mL/min (>60); Globulin 3.2 gm/dL (2.3-3.5); Glucose 102 mg/dL (74-106); Lipase 24 U/L (12-53); Osmolality,Calculated 287 (275-295); Potassium 4.1 mMol/L (3.4-5.1); Procalcitonin 0.20 ng/ml (0.0-0.49); Sodium 140 mMol/L (136-145); Total Protein 7.7 gm/dL (5.7-8.2); eGFR 30 See Note
--- NOTE | 2025-08-31 08:46 | PD.EDRECHK ---
ED Recheck Abnl Lab Rx-RME/TOYA General Chief Complaint: General Adult/Misc Complain Stated Complaint: NEPHROSTOMY LEAKING Time Seen by Provider: 08/31/25 07:10 Arrival date/time: 08/31/25 06:53 BRISA / TOYA RME / TOYA narrative: 08/31/25 06:53 This is a 64 y/o M with PMHx significant for invasive urothelial carcinoma, with bilateral nephrostomy tubes becvause of hydronephrosis. Pt states he had them placed in April and the one on the left fell out and now he only has the one on the roight which per patient is leaking. Pt has a hx ESRD and was getting dialysis but per patient is now making urine from nephrostomy and viveros catheter. Patient's urine from nephrostomy and Viveros catheter looks very cloudy and has foul odor. I have greeted and performed a focused initial assessment of this patient. Initial appropriate labs ordered at this time. A comprehensive ED assessment and evaluation of the patient and analysis of all test and completion of medical decision making process will be conducted by additional ED provider. DR. NMA MAIN ED EVALUATION: 64-year-old male with a history of invasive urothelial carcinoma, bilateral nephrostomy tubes for hydronephrosis, and end-stage renal disease (previously on dialysis twice weekly, now discontinued per nephrology) presents to the Emergency Department accompanied by his for evaluation of leakage from the right nephrostomy tube dressing. The reports clear fluid oozing from the connection site and is concerned about possible infection. The patient denies any other symptoms at this time. He states the nephrostomy tubes were placed in April 2025. No issues with output or pain around the site. Business Practices Supervisor: Dr. Santana Related Data Previous Rx's ?Medication ?Instructions ?Recorded carbamazepine 200 mg tablet 200 mg PO TID #60 tabs 05/29/25 melatonin 3 mg tablet 3 mg PO HS PRN insomnia #90 tabs 05/29/25 midodrine 5 mg tablet 5 mg PO TID PRN sbp < 110 #30 tabs 05/29/25 pantoprazole 40 mg tablet,delayed 40 mg PO QDAY #30 tabs 05/29/25 release sulfamethoxazole 800 1 tab PO BID #14 tabs 08/31/25 mg-trimethoprim 160 mg tablet (Bactrim DS) Allergies Allergy/AdvReac Type Severity Reaction Status Date / Time No Known Allergies Allergy Verified 08/31/25 06:54 Review of Systems Review of Systems Systems Reviewed: All systems reviewed, normal except as documented Past Medical History Past Medical History GENITOURINARY: Positive Genitourinary Disorders, Renal Disease and Dialysis OTHER HISTORY: Positive Cancer (Bladder) Social History SMOKING STATUS: Never smoker SUBSTANCE USE: does not use ALCOHOL: Never ED Exam Narrative Physical exam: GENERAL APPEARANCE: alert and oriented x 4, well-developed, well-nourished, no acute distress VITALS: All vitals were reviewed and the pulse ox is 96% on room air, which is normal according to my interpretation. HEENT: Normocephalic, atraumatic; pupils equal, round, reactive to light; EOMI; mucous membranes pink, moist; oropharynx clear NECK: Supple LUNGS: CTABL; no wheezes, no rales, no rhonchi HEART: Regular rate, regular rhythm; normal S1, S2; no murmurs ABDOMEN: non distended; normal BS; soft, no tenderness, no guarding, no rebound; no masses, no organomegaly, no hernia BACK/FLANK: Right nephrostomy tube in place with minor leakage at the connection site; small amount of proteinaceous exudate inside the tubing; no erythema, no purulence, and no tenderness around the insertion site; dressing mildly damp; no fluctuance or induration EXTREMITIES: atraumatic; no edema NEUROLOGIC: awake; alert and oriented x4; cranial nerves II-XII grossly intact; no focal sensory or motor deficits PSYCHIATRIC: appropriate mood and affect SKIN: warm, dry, normal color; no rashes Course Quality Measures none Orders Category Date Time Status Blood Culture (Lab) Stat Lab 08/31/25 07:37 Received CBC Stat Lab 08/31/25 07:41 Completed Comprehensive Metabolic Panel Stat Lab 08/31/25 07:41 Completed Lactate (Lactic Acid) Stat Lab 08/31/25 07:41 Completed Lipase Stat Lab 08/31/25 07:41 Completed Procalcitonin Stat Lab 08/31/25 07:41 Completed UA, C/S IF [Urinalysis, C/S if Indicated] Stat Lab 08/31/25 10:00 Completed Urinalysis, C/S if Indicated Stat Lab 08/31/25 09:10 Completed Urine Culture Stat Lab 08/31/25 09:10 Received Urine Culture Stat Lab 08/31/25 12:22 Ordered Trimethoprim/Sulfa 160/800 Ds [Bactrim Ds] Med 08/31/25 12:25 Discontinued 1 tab PO X1 ONE Vital Signs Vital signs: Vital Signs Temperature 98.2 F 08/31/25 07:21 Pulse Rate 92 08/31/25 07:21 Respiratory Rate 19 08/31/25 07:21 Blood Pressure 98/54 L 08/31/25 07:21 Pulse Oximetry (%) 95 08/31/25 07:21 Oxygen Delivery Method Room Air 08/31/25 07:21 Recheck / Abnormal Lab / Rx MDM Narrative MDM Narrative:: I, Ania Langford am scribing for and in the presence of Dr. Nam. Patient data External records reviewed:: [facility] previous records Clinical information provided by:: patient and spouse Social determinants that could affect healthcare access:: none Patient has the following chronic illnesses:: History of invasive urothelial carcinoma, bilateral nephrostomy tubes for hydronephrosis, and end-stage renal disease (previously on dialysis twice weekly, now discontinued per nephrology.He states the nephrostomy tubes were placed in April 2025. Business Practices Supervisor: Dr. Santana. How is presenting disease/condition affected by chronic disease/condition?: exacerbated by Evaluation data The following diagnostics were reviewed and interpreted by me:: lab results Lab and/or radiology exams considered but not ordered:: none Interpretation Summary: UTI Medications / Prescriptions Medications or Prescriptions considered but not ordered:: none Medication administrations:: Medication Administration History Discontinued Medications Trimethoprim/Sulfamethoxazole (Trimethoprim/Sulfa 160/800 Ds Tablet) 1 tab PO X1 ONE Stop: 08/31/25 12:26 see above Consultations Consultation(s) initiated? (list below): No Diagnosis Recheck Differential Diagnosis: other (Nephrostomy tube site leakage, mechanical connection issue, and early local irritation without infection.) Most likely diagnosis given after review of the tests above:: Leakage of nephrostomy catheter UTI Admission Indicated Admission indicated?: not indicated Admission Request Was there a request for admission?: No Disposition Plan Disposition Plan: Discharge Discharge Attestation Discharge Attestation: The patient and all family members were given an opportunity to ask questions and understood the discharge instructions. Discharge instructions specifically effects, indications for sooner follow up or return to the emergency department, and the expected course of current diagnosis. Patient condition: Stable Discharge Plan Plan Patient Disposition: HOME (Self Care) Prescriptions/Referrals Prescriptions/Med Rec: New sulfamethoxazole-trimethoprim [Bactrim DS] 800-160 mg tablet 1 tab PO BID Qty: 14 0RF No Action carbamazepine 200 mg tablet 200 mg PO TID Qty: 60 0RF melatonin 3 mg Tablet 3 mg PO HS PRN (Reason: insomnia) Qty: 90 0RF midodrine 5 mg Tablet 5 mg PO TID PRN (Reason: sbp < 110) Qty: 30 0RF pantoprazole 40 mg Tablet,Delayed Release (Dr/Ec) 40 mg PO QDAY Qty: 30 0RF Referrals: Deborah Dean PA-C [Primary Care Provider] - In 1 week Problem List Clinical Impression: Leakage of nephrostomy catheter, UTI (urinary tract infection) Patient/Caregiver Discharge Instructions Education Materials: Urinary Tract Infections in Men Print Language: [place] Stand Alone Forms: [facility] Award Info., Patient Portal Info Letter
[2025-08-31 10:19] VITALS: BP 116/75; PULSE 81; RESP 18; TEMP 36.8; O2SAT 96
[2025-08-31 10:57] LABS: Amorphous Crystals,Urine Present (Absent); Bacteria,Urine 4+; Bilirubin,Urine Negative (Negative); Blood,Urine 2+ (Negative); Collection Type, Urine Voided; Color,Urine Yellow (Lt Yel-Yel); Glucose, Urine Negative (Negative); Ketones,Urine Negative (Negative); Leukocyte Esterase,Urine Positive (Negative); Nitrite,Urine Positive (Negative); PH,Urine 6.5 (5.0-7.0); Protein,Urine 2+ (Neg - Trace); RBC,Urine 62 /hpf (0-3); Specific Gravity,Urine 1.022 (1.001-1.035); Squamous Epithelial Cell,Urine < 1 /hpf (0-5); Urobilinogen,Urine Negative mg/dL (0.0-1.0); WBC,Urine 481 /hpf (0-5)
[2025-08-31 11:00] LABS: Clarity,Urine Turbid (Clear/Hazy); Culture Indicated,Urine Yes
[2025-08-31 11:08] LABS: Bilirubin,Urine Negative (Negative); Blood,Urine 3+ (Negative); Collection Type, Urine Catheter; Glucose, Urine Negative (Negative); Ketones,Urine Negative (Negative); Leukocyte Esterase,Urine Positive (Negative); Nitrite,Urine Negative (Negative); PH,Urine 7.0 (5.0-7.0); Protein,Urine 2+ (Neg - Trace); RBC,Urine 2383 /hpf (0-3); Specific Gravity,Urine 1.010 (1.001-1.035); Squamous Epithelial Cell,Urine 0 /hpf (0-5); Urobilinogen,Urine Negative mg/dL (0.0-1.0); WBC,Urine 2111 /hpf (0-5)
[2025-08-31 11:27] LABS: Clarity,Urine Turbid (Clear/Hazy); Color,Urine Lt-Red (Lt Yel-Yel); Culture Indicated,Urine Yes
[2025-08-31] MEDS: TRIMETHOPRIM/SULFA 160/800 DS TABLET 1 TAB PO (12:55)
== END 2025-08-31 12:56 | disposition home or self-care (01) ==
PROVIDERS: Nurse Practitioner Family; Emergency Provider Emergency Medicine; PCP Physician Assistant
DX: T83.032A Leakage of nephrostomy catheter, initial encounter (principal); Y73.2 Prosthetic and other implants, materials and accessory gastroenterology and urology devices associated with adverse incidents; N18.6 End stage renal disease; N39.0 Urinary tract infection, site not specified; Z99.2 Dependence on renal dialysis
CPT/HCPCS: 36415; 80053; 81001; 83605; 83690; 84145; 85025; 87040; 87077; 87086; 87186; 99282; A9270

== ENCOUNTER 2025-09-23 17:04 | Inpatient (IN) | payer MEDICAID, SELFPAY ==
--- NOTE | 2025-09-23 17:40 | XR_ITS ---
Examination: Retroperitoneal ultrasound, complete Technique: Multiple high resolution grayscale images of the retroperitoneum obtained, including kidneys and bladder. Exam date and time: September 23, 2025, 1807 hours INDICATIONS: Clinical suspicion dislodged nephrostomy tube FINDINGS: Right kidney 13.8 cm renal cortex 1.5 cm Left kidney 11.9 cm renal cortex 1.8 cm Limited study with considerable patient motion Moderate to severe bilateral hydronephrosis No diagnostic visualization of nephrostomy tubes Contracted urinary bladder Prostate 30.6 cc no prostate nodules IMPRESSION: Moderate to severe bilateral hydronephrosis No diagnostic visualization nephrostomy tubes
--- NOTE | 2025-09-23 17:41 | PD.EDRME ---
Rapid Medical Screening Exam RME Arrival date/time: 09/23/25 17:04 This is a case of 65-year-old male with history of bladder cancer came in in the emergency room due to nephrostomy tube malfunction patient accidentally pulled the nephrostomy tube is thinks that the part of the nephrostomy tube was left in the bladder thus decided to sought consult here in the emergency room Chief Complaint: General Adult/Misc Complain Time Seen by Provider: 09/23/25 17:13 Exam: Abdomen soft normal active bowel sounds no guarding no rebound no rigidity no tenderness no CVA tenderness Clinical Impression: Nephrostomy tube malfunction
[2025-09-23 17:43] VITALS: BP 134/87; PULSE 80; RESP 18; TEMP 37.1; O2SAT 99
[2025-09-23 18:20] LABS: Basophils # (Auto) 0.0 Thou/mm3 (0.0-0.2); Basophils % (Auto) 0 % (0-2.5); Eosinophils # (Auto) 0.0 Thou/mm3 (0.0-0.5); Eosinophils % (Auto) 0 % (0-10); Hematocrit 39.2 % (41.0-53.0); Hemoglobin 12.5 g/dL (13.5-16.0); Immature Granulocytes Auto 0.10 Thou/mm3 (0.00-0.00); Lymphocytes # (Auto) 0.6 Thou/mm3 (1.0-4.8); Lymphocytes % (Auto) 4 % (10-50); Mean Corpuscular HGB Conc 31.9 g/dl (31.0-37.0); Mean Corpuscular Hemoglobin 28.3 pg (25.0-35.0); Mean Corpuscular Volume 89 fL (80-100); Monocytes # (Auto) 1.1 Thou/mm3 (0.0-0.8); Monocytes % (Auto) 6 % (0-12); Neutrophils # (Auto) 15.7 Thou/mm3 (1.8-7.7); Neutrophils % (Auto) 89 % (37-80); Nucleated Red Blood Cell # 0.00 Thou/mm3 (0.00-0.00); Nucleated Red Blood Cell % 0 /100 WBC (0); Platelet Count 463 Thou/mm3 (140-440); RDW Standard Deviation 48.6 fL (35.1-43.9); Red Blood Count 4.42 Miln/mm3 (4.50-5.90); White Blood Count 17.6 Thou/mm3 (3.8-10.6)
[2025-09-23 18:49] LABS: Alanine Aminotransferase 18 U/L (10-49); Albumin, Serum 4.1 gm/dL (3.4-4.8); Anion Gap 11 (7-16); Aspartate Amino Transferase 23 U/L (0-34); BUN/Creatinine Ratio 17 Ratio (12-20); Bilirubin,Total 0.4 mg/dL (0.3-1.2); Blood Urea Nitrogen 38 mg/dL (9-23); Calcium 10.3 mg/dL (8.3-10.6); Calcium (Corrected) 10.3 mg/dL (8.5-10.1); Carbon Dioxide 24.0 mMol/L (20.0-31.0); Chloride 103 mMol/L (98-107); Creatinine (Component) 2.3 mg/dL (0.6-1.3); Glucose 125 mg/dL (74-106); Osmolality,Calculated 285 (275-295); Potassium 3.9 mMol/L (3.4-5.1); Sodium 138 mMol/L (136-145); Total Protein 7.5 gm/dL (5.7-8.2); eGFR 31 See Note
[2025-09-23 18:50] LABS: Albumin/Globulin Ratio 1.2 (1.2-2.2); Alkaline Phosphatase 214 U/L (46-116); Globulin 3.4 gm/dL (2.3-3.5)
[2025-09-23 21:20] VITALS: BP 113/77; PULSE 90; RESP 18; TEMP 37.1; O2SAT 100; BMI 16.0
--- NOTE | 2025-09-23 21:43 | PD.EDRME ---
Rapid Medical Screening Exam RME Arrival date/time: 09/23/25 17:04 09/23/25 17:04 This is a case of 65-year-old male with history of bladder cancer came in in the emergency room due to nephrostomy tube malfunction patient accidentally pulled the nephrostomy tube is thinks that the part of the nephrostomy tube was left in the bladder thus decided to sought consult here in the emergency room Chief Complaint: General Adult/Misc Complain Time Seen by Provider: 09/23/25 17:13 Vital signs: Vital Signs Temperature 98.8 F 09/23/25 17:43 Pulse Rate 80 09/23/25 17:43 Respiratory Rate 18 09/23/25 17:43 Blood Pressure 134/87 H 09/23/25 17:43 Pulse Oximetry (%) 99 09/23/25 17:43 Oxygen Delivery Method Room Air 09/23/25 17:43 RME Narrative: 09/23/25 17:04 This is a case of 65-year-old male with history of bladder cancer came in in the emergency room due to nephrostomy tube malfunction patient accidentally pulled the nephrostomy tube is thinks that the part of the nephrostomy tube was left in the bladder thus decided to sought consult here in the emergency room Exam: Abdomen soft normal active bowel sounds no guarding no rebound no rigidity no tenderness no CVA tenderness Clinical Impression: Nephrostomy tube malfunction
--- NOTE | 2025-09-23 21:46 | XR_ITS ---
Examination: CT abdomen and pelvis without contrast. Coronal 3-D reconstructions. Sagittal 2-D reconstructions. Date and time of exam: September 23, 2025, 11:01 p.m. COMPARISON: June 17, 2025 INDICATIONS: History left nephrostomy Minimal right pleural fluid No focal liver or splenic lesion No gallstones Pancreatic calcifications Significant bilateral hydronephrosis, no nephrostomy tubes Again noted pelvic lymphadenopathy Urinary bladder shows tremendous thickening Prominent prostatomegaly CTDI: vol (mGy): 5.13 DLP: (mGycm): 288 Technique: Axial images of the abdomen have been obtained, 3 mm slice thickness Intravenous contrast material has not been administered. Low dose protocols were performed. One or more of the following dose reduction techniques were used; automated exposure control, adjustment of the mA and/or KV according to patient size, use of iterative reconstruction technique. Findings: Minimal right pleural fluid No renal or ureteral calculi,. Pancreatic calcifications Significant bilateral hydronephrosis, no nephrostomy tubes Pelvic lymphadenopathy again depicted Marked thickening urinary bladder No abdominal aortic dilatation Prominent prostatomegaly IMPRESSION: Significant bilateral hydronephrosis, no nephrostomy drainage tubes
[2025-09-23 21:51] LABS: Collection Type, Urine Voided; Squamous Epithelial Cell,Urine 0 /hpf (0-5)
--- NOTE | 2025-09-23 22:08 | PD.EDADULT ---
ED General E/HPI General Chief complaint: General Adult/Misc Complain Stated complaint: R NEPHROSTOMY TUBE POSSIBLE DISLODGE Time Seen by Provider: 09/23/25 17:13 Arrival date/time: 09/23/25 17:04 CC: Right flank nephrostomy tube broken HPI dressing as well as the nephrostomy tube off his back while half-asleep. The patient has a history of cancer in the abdomen, has a nephrostomy tube that is draining as well as a condom cath which is draining urine from his penis. Patient denies fever chills. He is somewhat cachectic looking in moderate discomfort but not in any acute distress. Denies nausea vomiting chest pain shortness of breath or difficulty breathing. Per family member the patient has been taken off dialysis for now. Relief Docking Master is Dr. Santana. E / HPI E / HPI narrative: 09/23/25 17:04 This is a case of 65-year-old male with history of bladder cancer came in in the emergency room due to nephrostomy tube malfunction patient accidentally pulled the nephrostomy tube is thinks that the part of the nephrostomy tube was left in the bladder thus decided to sought consult here in the emergency room Exam: Abdomen soft normal active bowel sounds no guarding no rebound no rigidity no tenderness no CVA tenderness Impression: Nephrostomy tube malfunction Related Data Previous Rx's ?Medication ?Instructions ?Recorded carbamazepine 200 mg tablet 200 mg PO TID #60 tabs 05/29/25 melatonin 3 mg tablet 3 mg PO HS PRN insomnia #90 tabs 05/29/25 midodrine 5 mg tablet 5 mg PO TID PRN sbp < 110 #30 tabs 05/29/25 pantoprazole 40 mg tablet,delayed 40 mg PO QDAY #30 tabs 05/29/25 release sulfamethoxazole 800 1 tab PO BID #14 tabs 08/31/25 mg-trimethoprim 160 mg tablet (Bactrim DS) ciprofloxacin HCl 500 mg tablet 500 mg PO BID #14 tabs 09/23/25 (Cipro) Allergies Allergy/AdvReac Type Severity Reaction Status Date / Time No Known Allergies Allergy Verified 09/23/25 17:07 Review of Systems Review of Systems Narrative Review of Systems: GEN: No fever, no chills, no weight loss EYES: No discharge, no visual changes, no pain HEENT: No ear pain, no congestion, no sore throat PULM: No shortness of breath, no cough, no congestion CV: No chest pain, no dyspnea on exertion, no palpitations GI: No nausea, no vomiting, no diarrhea, no pain, no constipation : No frequency, no urgency, no dysuria MUSC/SKEL: No joint pain, no back pain SKIN: No rash PSYCH: No hallucinations, no depression HEME/LYMPH: No easy bleeding or bruising tendencies NEURO: No weakness, no headache Past Medical History Past Medical History NEUROLOGIC: Negative Neurological Disorders or Seizures CARDIAC: Negative Cardiac Disorders or Congestive Heart Failure RESPIRATORY: Negative Chronic Obstructive Pulmonary Disease (COPD) GASTROINTESTINAL: Negative Gastrointestinal Disorders GENITOURINARY: Positive Genitourinary Disorders, Renal Disease and Dialysis REPRODUCTIVE: Negative Testicular Cancer ENDOCRINE: Negative Endocrine Disorders, Diabetes Mellitus Type 1 or Diabetes Mellitus Type 2 HEMATOLOGIC: Negative Blood Disorders OTHER HISTORY: Positive Cancer (bladder cancer); Negative Blood Transfusions, Anesthesia Reactions or Testicular Cancer Family History FAMILY HISTORY: Negative Family Cardiac Disorders Social History SMOKING STATUS: Never smoker SUBSTANCE USE: does not use ED Exam Narrative Physical exam: [General: Thin borderline emaciated in appearance, in mild discomfort but not in any acute distress Head normocephalic HEENT: Within acceptable limits Neck is supple nontender Chest equal chest rise nontender to palpation Respiratory: Clear to auscultation no wheezes crackles or rubs CV: Rate rhythm is regular no murmurs rubs or clicks Abdomen is distended secondary to body habitus soft nontender no masses positive bowel sounds all 4 quadrants Back: Right flank: The patient has a nephrostomy fragment emerging from the nephrostomy stoma in the right back and is draining yellow blood-tinged urine. The fragment of the nephrostomy tube barely exceeds the skin surface. No CVA tenderness no spinous process tenderness from cervical spine thoracic and lumbar spine Skin: Intact no petechiae rash induration ulceration or crepitus Extremities: Moving all extremity against resistance cap refill less than 2 seconds neurosensory intact Neuro: Awake alert oriented x3 Glascow coma 15 no focal deficits] Course Course Course Narrative: Patient will need to have the left nephrostomy tube replaced. The old fragment needs to be removed and new 1 placed. The patient's renal function is unchanged from previous draws. The only area of concern is the patient's elevated leukocytosis, the patient given 1 g of Rocephin for urine. I do not feel the patient at this time needs dialysis. Patient most likely just needs the nephrostomy tube replaced and discharged home for outpatient follow-up. Quality Measures none Orders Category Date Time Status Saline [Insert IV] NOW Care 09/23/25 22:[address] abdomen pelvis wo con Stat Exams 09/23/25 21:46 Completed IR nephrostomy Stat Exams 09/24/25 Ordered IR nephrostomy tube change Stat Exams 09/23/25 Ordered US renal BI Stat Exams 09/23/25 17:40 Completed Blood Culture (Lab) Stat Lab 09/24/25 10:05 Received CBC Stat Lab 09/23/25 17:54 Completed CMP [Comprehensive Metabolic Panel] Stat Lab 09/23/25 17:54 Completed Procalcitonin Stat Lab 09/24/25 10:09 Completed Urinalysis Stat Lab 09/23/25 21:35 Completed HYDROmorphone INJ [Dilaudid Inj] Med 09/24/25 09:41 Discontinued 0.5 mg IVP X1 ONE Morphine* Inj Med 09/23/25 22:22 Discontinued 4 mg IVP X1 ONE Morphine* Inj Med 09/24/25 02:00 Discontinued 4 mg IVP X1 ONE Ondansetron Inj [Zofran Inj] Med 09/23/25 22:22 Discontinued 4 mg IVP X1 ONE cefTRIAXone/D5w 1gm IV premix [Rocephin/D5w 1gm IV Med 09/23/25 22:07 Discontinued premix] 1 gm in 50 ml IV X1 Vital Signs Vital signs: Vital Signs Temperature 98.8 F 09/23/25 17:43 Pulse Rate 80 09/23/25 17:43 Respiratory Rate 18 09/23/25 17:43 Blood Pressure 134/87 H 09/23/25 17:43 Pulse Oximetry (%) 99 09/23/25 17:43 Oxygen Delivery Method Room Air 09/23/25 17:43 Discharge Plan Plan Patient Disposition: Admit Acute Care w/in Hospital Problem List Clinical Impression: Displacement of nephrostomy tube, UTI (urinary tract infection), Bladder cancer, SIRS (systemic inflammatory response syndrome) MDM Clinical Information Provided by: patient and family Medical Records reviewed [facility] Medical Records additional comments: Review the medical record show the last admission was in May 2025 for replacement of the left nephrostomy tube. However Dr Moncada stated that the hydro was small enough that it can be scheduled on an outpatient basis and the patient was promptly discharged. Meds/Rx considered, not ordered None Chronic Illness/Social Conditions Explain: Urethral carcinoma, ESRD Labs Labs: interpreted by me Lab(s) Interpretation(s): CBC shows mild leukocytosis 17.8 H&H of 12.5 and 39.2. Platelets at 463. CMP shows no significant electrolyte imbalances, BUN at 38 creatinine 2.3 glucose at 125. Alk phos of 214 no transaminitis or T. bili elevation. Imaging Imaging interpretation: interpreted by oh Imaging Interpretation(s): Ultrasound of the renals shows moderate to severe bilateral hydronephrosis. Medication Administration(s) Medication Administration History Acetaminophen (Acetaminophen 325 Mg Tablet) 650 mg PO Q6H PRN PRN Reason: PAIN SCALE 1-3 (mild Stop: 10/24/25 09:59 Ceftriaxone Sodium/Dextrose (Rocephin/D5w 1gm Iv Premix) 1 gm in 50 mls @ 100 mls/hr IV QDAY [facility] Stop: 10/01/25 10:02 Last Admin: 09/24/25 10:35 Dose: 100 mls/hr Documented By: DOV Lactated Ringer's (Lactated Ringers) 1,000 mls @ 75 mls/hr IV .[id number] [facility] Stop: 09/25/25 12:44 Last Admin: 09/24/25 10:36 Dose: 75 mls/hr Documented By: DOV Morphine Sulfate (Morphine Sulf Inj 4 Mg/Ml Vial) 2 mg IVP Q4HR PRN PRN Reason: mod-severe pain 5-8 Stop: 09/29/25 10:05 Ondansetron HCl (Ondansetron Inj 2 Mg/Ml Inj 2 Ml) 4 mg IVP Q6H PRN; Protocol PRN Reason: NAUSEA OR VOMITING Stop: 10/24/25 09:59 Pantoprazole Sodium (Pantoprazole Inj 40 Mg Vial) 40 mg IVP QDAY [facility] Stop: 10/25/25 08:59 Discontinued Medications Hydromorphone HCl (Hydromorphone Inj 2 Mg/Ml Vial) 0.5 mg IVP X1 ONE Stop: 09/24/25 09:42 Last Admin: 09/24/25 09:53 Dose: 0.5 mg Documented By: DOV Ceftriaxone Sodium/Dextrose (Rocephin/D5w 1gm Iv Premix) 1 gm in 50 mls @ 100 mls/hr IV X1 ONE Stop: 09/23/25 22:36 Last Infusion: 09/23/25 23:00 Dose: Infused Documented By: Admin: 09/23/25 22:29 Dose: 100 mls/hr Documented By: BEATRIZ Morphine Sulfate (Morphine Sulf Inj 4 Mg/Ml Vial) 4 mg IVP X1 ONE Stop: 09/23/25 22:23 Last Admin: 09/23/25 22:29 Dose: 4 mg Documented By: BEATRIZ Morphine Sulfate (Morphine Sulf Inj 4 Mg/Ml Vial) 4 mg IVP X1 ONE Stop: 09/24/25 02:01 Last Admin: 09/24/25 02:21 Dose: 4 mg Documented By: BEATRIZ Ondansetron HCl (Ondansetron Inj 2 Mg/Ml Inj 2 Ml) 4 mg IVP X1 ONE; Protocol Stop: 09/23/25 22:23 Last Admin: 09/23/25 22:29 Dose: 4 mg Documented By: BEATRIZ
[2025-09-23 22:17] LABS: Bilirubin,Urine Negative (Negative); Blood,Urine 3+ (Negative); Color,Urine Orange (Lt Yel-Yel); Glucose, Urine Negative (Negative); Ketones,Urine Negative (Negative); Leukocyte Esterase,Urine Positive (Negative); Nitrite,Urine Negative (Negative); PH,Urine 6.5 (5.0-7.0); Protein,Urine 3+ (Neg - Trace); RBC,Urine 203 /hpf (0-3); Specific Gravity,Urine 1.010 (1.001-1.035); Urobilinogen,Urine Negative mg/dL (0.0-1.0); WBC,Urine 4212 /hpf (0-5)
[2025-09-23 22:18] LABS: Clarity,Urine Turbid (Clear/Hazy)
[2025-09-23 22:29] VITALS: BP 133/84; PULSE 93; RESP 18; O2SAT 98
[2025-09-23] MEDS: cefTRIAXone/D5w 1gm IV premix 1 GM/50 ML BAG IV (22:29)
[2025-09-23] MEDS: ONDANSETRON INJ 2 MG/ML INJ 2 ML 4 MG IVP (22:29)
[2025-09-23] MEDS: MORPHINE SULF INJ 4 MG/ML VIAL IVP (22:29)
--- NOTE | 2025-09-23 23:09 | PD.EDADDENDU ---
Emergency Room Addendum Addendum Narrative: 2300: Care assumed from Donald Bradshaw NP. Past medical, surgical, social and family history reviewed. Vitals and home medications reviewed. Results and treatment plan discussed. I will assume the care of the patient at this time and will follow the patient. Please refer to the emergency department record for history and examination from initial visit. RADIOLOGY RESULTS: [facility] Imaging Report Signed Patient: ERIC LONGORIA Record#: [id number] Birthdate: 1960 Age/Sex: 64 / M Location: [facility] Attending Dr: Ordering Physician: Donald Bradshaw NP Date of Service: 09/23/25 Procedure(s): CT abdomen pelvis wo con Accession Number(s): [id number] cc: Deborah Dean; Donald Bradshaw NP; Srinivasa Moncada MD~ Examination: CT abdomen and pelvis without contrast. Coronal 3-D reconstructions. Sagittal 2-D reconstructions. Date and time of exam: September 23, 2025, 11:01 p.m. COMPARISON: June 17, 2025 INDICATIONS: History left nephrostomy Minimal right pleural fluid No focal liver or splenic lesion No gallstones Pancreatic calcifications Significant bilateral hydronephrosis, no nephrostomy tubes Again noted pelvic lymphadenopathy Urinary bladder shows tremendous thickening Prominent prostatomegaly CTDI: vol (mGy): 5.13 DLP: (mGycm): 288 Technique: Axial images of the abdomen have been obtained, 3 mm slice thickness Intravenous contrast material has not been administered. Low dose protocols were performed. One or more of the following dose reduction techniques were used; automated exposure control, adjustment of the mA and/or KV according to patient size, use of iterative reconstruction technique. Findings: Minimal right pleural fluid No renal or ureteral calculi,. Pancreatic calcifications Significant bilateral hydronephrosis, no nephrostomy tubes Pelvic lymphadenopathy again depicted Marked thickening urinary bladder No abdominal aortic dilatation Prominent prostatomegaly IMPRESSION: Significant bilateral hydronephrosis, no nephrostomy drainage tubes Dictated By: Srinivasa Moncada MD Signed By: <Electronically signed by Srinivasa Moncada MD in [place]> 09/23/25 2326
[2025-09-24] VITALS (22 sets, daily range): BP systolic 93–138; BP diastolic 66–95; PULSE 84–104; RESP 13–20; TEMP 36.4–36.9; O2SAT 95–100; BMI 16.0
--- NOTE | 2025-09-24 | XR_ITS ---
PROCEDURE: Genitourinary catheter placement Procedural Personnel Attending physician(s): Tavares Chu MD Pre-procedure diagnosis: Bladder cancer Post-procedure diagnosis: Same Indication: Urinary obstruction Complications: No immediate complications. PROCEDURE SUMMARY - Target organ: Bilateral tolowa dee-ni' kidneys - Image-guided placement of genitourinary catheter(s) - Additional procedure(s): None PROCEDURE DETAILS: Pre-procedure Consent: Informed consent for the procedure including risks, benefits and alternatives was obtained and time-out was performed prior to the procedure. Preparation: The site was prepared and draped using maximal sterile barrier technique including cutaneous antisepsis. Anesthesia/sedation Moderate sedation administered by a licensed sedation nurse under supervision of medical doctor. Total sedation time 70 minutes. 400 mg IV ciprofloxacin 1.5 mg IV Versed 75 mcg IV fentanyl Left genitourinary catheter placement Local anesthesia was administered. A needle was advanced into a lower pole calyx under ultrasound and fluoroscopy guidance. A wire was advanced, the tract was serially dilated and a nephrostomy tube was placed. Contrast injection was performed. Genitourinary catheter placed: 10.2 [place] pigtail drain Findings: Severe hydroureteronephrosis with immediate output of cloudy urine. External catheter securement: Non-absorbable suture and adhesive anchoring device Right genitourinary catheter placement Local anesthesia was administered. A needle was advanced into a lower pole calyx under ultrasound and fluoroscopy guidance. A wire was advanced, the tract was serially dilated and a nephrostomy tube was placed. Contrast injection was performed. Genitourinary catheter placed: 10.2 [place] pigtail drain Findings: Severe hydroureteronephrosis with immediate output of bloody urine corresponding to hyperdense material is seen on 09/23/2025 CT. External catheter securement: Non-absorbable suture and adhesive anchoring device Contrast Contrast agent: Isovue 370 Contrast volume (mL): 30 Radiation Dose 4 minutes, 19.62 mGy Additional Details Specimens removed: Samples from bilateral nephrostomy tubes were sent to the lab for further evaluation. Estimated blood loss (mL): Less than 10 Standardized report: [id number] IMPRESSION: Successful placement of bilateral 10 [place] nephrostomy tubes. PLAN: Referring team to follow up urine culture results. Recommend routine outpatient exchange in 8 to 12 weeks, or as clinically indicated. Attestation Signer name: Tavares Chu MD I attest that I was present for the entire procedure. I agree with the report as written. No unintentionally retained devices were noted upon review of the images.
[2025-09-24] MEDS: MORPHINE SULF INJ 4 MG/ML VIAL IVP (02:21)
--- NOTE | 2025-09-24 04:14 | PD.EDADDENDU ---
Emergency Room Addendum Addendum Narrative: Patient did well during my shift. He did receive morphine 4 mg IV for pain. Patient is currently awaiting interventional radiology to place a nephrostomy tube due to the fact that the previously existing nephrostomy tube inadvertently got pulled out.
--- NOTE | 2025-09-24 06:27 | EDNOTE_ITS ---
Emergency Room Addendum <Deepika Luu - Last Filed: 09/24/25 09:42> Addendum Narrative: 0600: Care assumed from Dr. Almaraz, the previous shift emergency physician. Past medical, surgical, social and family history reviewed. Vitals and home medications reviewed. I will assume the care of the patient at this time, pending IR nephrostomy tube replacement and final disposition. Please refer to the emergency department record for history and examination from initial visit.?The following addendum documentation note is intended to reflect any pending information, findings, or radiology results not included in the patient?s initial chart. Patient is a 64-year-old male with medical history notable for bladder cancer to the emergency department with concerns for dislodged nephrostomy tube. Vital signs and exam as listed. Prior provider evaluated patient. Ordered labs, CT abdomen pelvis as well as renal ultrasound. Patient has moderate to severe bilateral hydronephrosis. CT abdomen pelvis without contrast identified the same. No evidence of nephrostomy tube. Urinalysis with 4000 white blood cells 200 red blood cells leuk esterase positive nitrate negative concern for urinary tract infection antibiotics provided. Patient with creatinine 2.3, this is kylah ent's baseline. Patient with a leukocytosis of 17.6 hemoglobin 12.5. Patient has his baseline hemoglobin. 0920a: I spoke with IR Dr. Chu. States he has reviewed the CT images which shows bilateral severe hydronephrosis. Requesting we confirm with urologist Dr. Kent whether the patient would require one or bilateral nephrostomy tubes. Additionally recommands admission after nephrostomy tubes for closer monitoring. 0924a: I spoke with urologist Dr. Kent who recommends bilateral nephrostomy tube placement. 0938a: I spoke with hospitalist team C for admission. <Arcelia Wagner MD - Last Filed: 10/01/25 20:11> Addendum Narrative: 0600: Care assumed from Dr. Almaraz, the previous shift emergency physician. Past medical, surgical, social and family history reviewed. Vitals and home medications reviewed. I will assume the care of the patient at this time, pending IR nephrostomy tube replacement and final disposition. Please refer to the emergency department record for history and examination from initial visit.?The following addendum documentation note is intended to reflect any pending information, findings, or radiology results not included in the patient?s initial chart. Patient is a 64-year-old male with medical history notable for bladder cancer to the emergency department with concerns for dislodged nephrostomy tube. Vital signs and exam as listed. Prior provider evaluated patient. Ordered labs, CT abdomen pelvis as well as renal ultrasound. Patient has moderate to severe bilateral hydronephrosis. CT abdomen pelvis without contrast identified the same. No evidence of nephrostomy tube. Urinalysis with 4000 white blood cells 200 red blood cells leuk esterase positive nitrate negative concern for urinary tract infection antibiotics provided. Patient with creatinine 2.3, this is patient's baseline. Patient with a leukocytosis of 17.6 hemoglobin 12.5. Patient has his baseline hemoglobin. 0920a: I spoke with IR Dr. Chu. States he has reviewed the CT images which shows bilateral severe hydronephrosis. Requesting we confirm whether or not patient needs bilateral nephrostomy tubes. 0924a: I spoke with urologist Dr. Kent who recommends bilateral nephrostomy tube placement. I updated Dr. Chu that patient's urologist requests bilateral nephrostomy tubes. Dr. Chu also mention that patient nephrostomy tubes probably would not be placed until later this afternoon. Given this, patient meets respiratory, and urinary tract infection, will discuss admission with hospitalist service. Patient would benefit from IV antibiotics and closer monitoring. 0938a: I spoke with hospitalist team C for admission. Total critical care time: Approximately?36?minutes Due to a high probability of clinically significant, life threatening deterioration, the patient required my highest level of preparedness to intervene emergently and I personally spent this critical care time directly and personally managing the patient. This critical care time included obtaining a history; examining the patient; pulse oximetry; ordering and review of studies; arranging urgent treatment with development of a management plan; evaluation of patient's response to treatment; frequent reassessment; and, discussions with other providers. This critical care time was performed to assess and manage the high probability of imminent, life-threatening deterioration that could result in multi-organ failure. It was exclusive of separately billable procedures and treating other patients and teaching time. Please see MDM section and the rest of the note for further information on patient assessment and treatment.
--- NOTE | 2025-09-24 07:23 | PC.NURSE ---
Pt seen in room, he is a&ox4, has some muscular jerking that he stated has been going on for 4 years. Reason for visit today is his right nephrostomy tube was accidently dislodged during the night. Nephrostomy was placed at [facility] a couple of months ago. VSS. Bed in lowest position with call light.
[2025-09-24] MEDS: HYDROmorphone INJ 2 MG/ML VIAL 0.5 MG IVP (09:53)
--- NOTE | 2025-09-24 10:08 | ESHP_ITS ---
<Statement entered by Haile Pearce MD - 09/24/25 16:29> Mr. Meade is a 64 year old man with a history significant for invasive urothelial carcinoma, with bilateral moderate to severe hydronephrosis, chronic viveros catheter and CKD IIIb (follows with [facility]). Pt had undergone dialysis for short period of time and last session was in the beginning of July. The tunneled dialysis cath is present in the right side of the chest. Pt is admitted for nephrostomy tube placement by IR because both of then had fallen out. UA is positive for UTI with significant pyuria, the viveros has not been changed since April because it is recommended to only be replaced by Urologist which pt has not been able to obtain a referral outpatient yet. Pt is currently undergoing cancer treatment with immunosupressions at [facility]. Patient was seen and examined by me personally. I have directly supervised and reviewed documentation by the team resident and agree with its findings. ------- Plan of care was discussed with the attending, Dr. Ab Pearce, PGY-2 Documentation for date of: 09/24/25 HPI History of Present Illness Chief complaint: R nephrostomy tube fell out History of present illness: Mr Meade is a 64 year old man with a history significant for invasive urothelial carcinoma, with bilateral moderate to severe hydronephrosis and R nephrostomy tube and chronic viveros catheter that drains urine, CKD IIIb (follows with esther), and stable choreform movements who presents with right nephrostomy tube that fell out. is present at bedside who states that there was some swelling and bleeding from the R nephrostomy site. Patient does make urine, viveros in place ROS denies fever, chills, chest pain, endorses, moderate R flank pain, and moderate abdominal pain. PMH: Invasive urothelial carcinoma, CKD (previously on HD with recovered renal fxn, no longer on HD) PSH: BL nephrostomy tubes SH: Denies alcohol or illicit drug use. 30+ pack year smoking history. Allergies:?None Medications: Carbamazepine, midodrine ED course: VS: normotensive, hr 8-, rr 18, afebrile, satting 99 on RA Labs notable for wbc 17.6, alk phos 214, elevated ca 10.3 bun 2.3, bun 38, procal1.2 UA notable for turbid, 3+protein, 3+blood, leuk esterase + wbc 4212, no bacteria rbc 203 Imaging notable for CTAP with bl severe hydronephrosis, Prostate 30.6 cc no prostate nodules and renal us with severe bl hydronephrosis Tx Ceftriaxone 1gm morphine iv ED spoke to Yoli who recs bilateral nephrostomy tubes, he is not available to see the patient. Exam Vital Signs Temp Pulse Resp BP Pulse Ox O2 Del Method 97.9 F 84 20 138/79 H 100 Room Air 09/24/25 07:19 09/24/25 07:19 09/24/25 07:19 09/24/25 07:19 09/24/25 07:19 09/24/25 07:19 Narrative Exam Gen: No acute distress. A&Ox3, laying on his right side curled into position. HEENT: NCAT, PERRLA, EOMI, MMM, anicteric conjunctivae. CVS: normal S1 and S2. RRR. No M/R/G. Resp: CTA B/L. No rhonchi, rales, crackles or wheezing. Abd: soft, non-distended. BS+ in all 4 quadrants. Mild diffuse tenderness. MSK: Good ROM in BUE & BLE. on back with well healed left old nephrostomy site, and R nephrostomy site with some errythema and blood draining when palpated, and mildly tender. : viveros catheter in place Neuro: CN II-XII not assessed. Strength 5/5 in BUE & BLE. Alert and oriented x3. Choreiform movements. Slurred speech, normal for patient. Psych: appropriate mood and affect. Results: Labs 09/24/25 10:09 09/23/25 17:54 Labs: Short CBC 09/23/25 Range/Units 17:54 WBC 17.6 H (3.8-10.6) Thou/mm3 Hgb 12.5 L (13.5-16.0) g/dL Hct 39.2 L (41.0-53.0) % Plt Count 463 H D (140-440) Thou/mm3 BMP 09/23/25 17:54 Sodium 138 Potassium 3.9 Chloride 103 Carbon Dioxide 24.0 BUN 38 H Creatinine 2.3 H Glucose 125 H Calcium 10.3 Liver Function 09/23/25 Range/Units 17:54 Total Bilirubin 0.4 (0.3-1.2) mg/dL AST 23 (0-34) U/L ALT 18 (10-49) U/L Alkaline Phosphatase 214 H (46-116) U/L Albumin 4.1 (3.4-4.8) gm/dL Urine 09/23/25 Range/Units 21:35 Urine Color [place] A (Lt Yel-Yel) Urine Clarity Turbid A (Clear/Hazy) Urine pH 6.5 (5.0-7.0) Ur Specific [place] 1.010 (1.001-1.035) Urine Protein 3+ A (Neg - Trace) Urine Glucose (UA) Negative (Negative) Quality Measures Quality Measures VTE prophylaxis Medications Home Medications and Allergies Allergies Allergy/AdvReac Type Severity Reaction Status Date / Time No Known Allergies Allergy Verified 09/23/25 17:07 Visit Medications Acetaminophen (Acetaminophen 325 Mg Tablet) 650 mg PO Q6H PRN PRN Reason: PAIN SCALE 1-3 (mild Stop: 10/24/25 09:59 Ceftriaxone Sodium/Dextrose (Rocephin/D5w 1gm Iv Premix) 1 gm in 50 mls @ 100 mls/hr IV QDAY [facility] Stop: 10/01/25 10:02 Lactated Ringer's (Lactated Ringers) 1,000 mls @ 75 mls/hr IV .[id number] [facility] Stop: 09/25/25 12:44 Morphine Sulfate (Morphine Sulf Inj 4 Mg/Ml Vial) 2 mg IVP Q4HR PRN PRN Reason: mod-severe pain 5-8 Stop: 09/29/25 10:05 Ondansetron HCl (Ondansetron Inj 2 Mg/Ml Inj 2 Ml) 4 mg IVP Q6H PRN; Protocol PRN Reason: NAUSEA OR VOMITING Stop: 10/24/25 09:59 Pantoprazole Sodium (Pantoprazole Inj 40 Mg Vial) 40 mg IVP QDAY [facility] Stop: 10/25/25 08:59 Discontinued Medications Hydromorphone HCl (Hydromorphone Inj 2 Mg/Ml Vial) 0.5 mg IVP X1 ONE Stop: 09/24/25 09:42 Last Admin: 09/24/25 09:53 Dose: 0.5 mg Ceftriaxone Sodium/Dextrose (Rocephin/D5w 1gm Iv Premix) 1 gm in 50 mls @ 100 mls/hr IV X1 ONE Stop: 09/23/25 22:36 Last Infusion: 09/23/25 23:00 Dose: Infused Morphine Sulfate (Morphine Sulf Inj 4 Mg/Ml Vial) 4 mg IVP X1 ONE Stop: 09/23/25 22:23 Last Admin: 09/23/25 22:29 Dose: 4 mg Morphine Sulfate (Morphine Sulf Inj 4 Mg/Ml Vial) 4 mg IVP X1 ONE Stop: 09/24/25 02:01 Last Admin: 09/24/25 02:21 Dose: 4 mg Ondansetron HCl (Ondansetron Inj 2 Mg/Ml Inj 2 Ml) 4 mg IVP X1 ONE; Protocol Stop: 09/23/25 22:23 Last Admin: 09/23/25 22:29 Dose: 4 mg Assessment & Plan Plan Mr Meade is a 64 year old man with a history significant for invasive urothelial carcinoma, with bilateral moderate to severe hydronephrosis and R nephrostomy tube and chronic viveros catheter that drains urine, CKD IIIb (follows with esther outpatient), and stable choreform movements who presented with displacement of the right nephrostomy tube, pending IR bilateral nephrostomy tube replacement. CKD IIIb 2/2 Proteinuria 3+ Hematuria 3+ BL severe hydronephrosis -chronic with displaced nephrostomy tubes 2/2 Invasive urothelial carcinoma with glandular differentiation patient previously had ESRD, and was on HD tuesday. He had recovery of his renal function and was discontinued on HD. patient initially had bilateral percutaneous nephrostomy tubes, but then the left fell out in may 2025, and was not replaced, he was discharged at that time with R nephrostomy and viveros cath. patient follows with [facility] outpatient for cancer, and has not been connected with urologist outpatient because of error with referral. pt presented on this admission with displaced Right nephrostomy tube. eGFR 31 Dx CTAP and Renal US with bilateral hydronephrosis, prostate volume 30. INR and PT wnl Plan Pending BL nephrostomy tube with IR CTM renal fxn Patient follows with Dr. Santana outpatient, UTI UA with turbid urine, RBC and WBC 4212 and leuk esterase + WBC elevated 17.7, procal 1.2 patient endorses some mild abdominal pain, CTAP with no signs of perinephric stranding. Patient has chronic viveros that has not been exchanged recently, pt will likely need to have viveros replaced prior to discharge Tx Ceftriaxone 1gm qd (09/24 follow up Urine cultures pending Blood cx replace viveros cath prior to discharge Dr. Kent notified, however he is unavailable to see the patient this week. Anemia of chronic disease likely 2/2 bladder cancer Hgb 12 Plan: Daily CBC Choreiform vs diskinetic like movements Plan Continue home carbamezapime 200 mg TID HoTN Plan Midorine 5mg TID for SBP<100 Hypercalcemia Corrected Ca 10.3 , likely 2/2 dehydration. Plan NS 75 cc/hr 2 bags Dispo: Med tele, npo pending IR bilateral percutaneous nephrostomy tubes. Diet: NPO Bowel Reg: n/a VTE ppx: hold given ir nephrostomy tubes pending placement GI ppx: protonix 40 IV QD Code status: FULL Plan discussed with my attending Dr. Berger and my senior Dr. Ramses Varela MD PGY1 Attending Provider Attestation/Addendum I have seen and examined the patient. I was physically present for the wallace portions of the services provided including history, physical exam, diagnosis, treatment plans and orders. I agree with assessment and plan of care as documented by residents. After examination of the patient and review of the clinical data I feel that this patient needs admission to the hospital for further treatment/evaluation. Patient is a 64 years old male with past medical history of invasive urothelial carcinoma, bilateral moderate to severe hydronephrosis with right nephrostomy tube, chronic Viveros catheter, CKD and stable choreiform movement disorder who presented to the ED with complaint of right nephrostomy tube dislodgment. Patient has been having some swelling, pain and mild bleeding from the nephrostomy site. Urology and IR was contacted by ED, recommended admission of the patient for bilateral nephrostomy tube placement. Vital signs were stable, lab results show WBC of 17.7, hemoglobin 12.0, BUN/creatinine 38/2.3. Patient appears in mild pain, has tenderness around bilateral flanks, more on right side. CT abdomen/pelvis was done, shows significant bilateral hydronephrosis, pelvic lymphadenopathy, marked thickening of urinary bladder, minimal right pleural fluid. We will admit the patient, for further management of nephrostomy tube dislodgment. Discussed with IR, patient is planned for left nephrostomy tube placement. Started patient on IV Rocephin for UTI. Discussed with urology, urology will not be available to see the patient. We will continue his carbamazepine for coliform movements, also started on gentle IV hydration. Patient was previously on hemodialysis, which has been recently discontinued due to improvement in kidney function. Patient still has the hemodialysis catheter, we will discuss with nephrology tomorrow if the nephrostomy tube is functional, and if agreed we will plan for discontinuation of the hemodialysis catheter. Even though this this note was carefully revised there may still be minor errors in special educator due to voice recognition software. Ant Berger MD
[2025-09-24] MEDS: cefTRIAXone/D5w 1gm IV premix 1 GM/50 ML BAG IV (10:35)
[2025-09-24] MEDS: RINGERS LACTATED 1000 ML 1,000 ML 75 ML IV (10:36)
[2025-09-24 10:54] LABS: Procalcitonin 1.20 ng/ml (0.0-0.49)
[2025-09-24] MEDS: MORPHINE SULF INJ 4 MG/ML VIAL 2 MG IVP ×2 (13:43→21:15)
[2025-09-24 14:03] LABS: Basophils # (Auto) 0.0 Thou/mm3 (0.0-0.2); Basophils % (Auto) 0 % (0-2.5); Eosinophils # (Auto) 0.0 Thou/mm3 (0.0-0.5); Eosinophils % (Auto) 0 % (0-10); Hematocrit 37.8 % (41.0-53.0); Hemoglobin 12.0 g/dL (13.5-16.0); Immature Granulocytes Auto 0.13 Thou/mm3 (0.00-0.00); Lymphocytes # (Auto) 0.8 Thou/mm3 (1.0-4.8); Lymphocytes % (Auto) 4 % (10-50); Mean Corpuscular HGB Conc 31.7 g/dl (31.0-37.0); Mean Corpuscular Hemoglobin 28.6 pg (25.0-35.0); Mean Corpuscular Volume 90 fL (80-100); Monocytes # (Auto) 1.0 Thou/mm3 (0.0-0.8); Monocytes % (Auto) 6 % (0-12); Neutrophils # (Auto) 15.7 Thou/mm3 (1.8-7.7); Neutrophils % (Auto) 89 % (37-80); Nucleated Red Blood Cell # 0.00 Thou/mm3 (0.00-0.00); Nucleated Red Blood Cell % 0 /100 WBC (0); Platelet Count 393 Thou/mm3 (140-440); RDW Standard Deviation 49.3 fL (35.1-43.9); Red Blood Count 4.19 Miln/mm3 (4.50-5.90); White Blood Count 17.7 Thou/mm3 (3.8-10.6)
[2025-09-24 14:14] LABS: INR 1.1 (0.9-1.3); Prothrombin Time 11.8 Seconds (9.0-12.2)
--- NOTE | 2025-09-24 14:41 | XR_ITS ---
EXAMINATION: AP chest single view TECHNIQUE: AP portable semiupright chest single view Date and time: September 24, 2025, 1927 hours, comparison June 18, 2025 INDICATIONS: Cough and congestion shortness of breath today. FINDINGS: Bilateral perihilar pneumonia No significant cardiac enlargement but there is prominent vascular congestion Right subclavian dialysis catheter tip satisfactory position Prominent osteopenia IMPRESSION: Bilateral perihilar pneumonia
[2025-09-24] MEDS: HEPARIN SOD LOCK SYR 100 UNIT/ML 500 UNIT STFIELD (16:00)
[2025-09-24] MEDS: LIDOCAINE INJ PF 1% 30 ML VIAL INFL (16:00)
[2025-09-24] MEDS: MIDAZOLAM INJ 1 MG/ML VIAL 2 ML 1.5 MG IVP (16:14)
[2025-09-24] MEDS: fentaNYL CIT INJ 50 mCg/ML AMP 2ML 75 MCG IVP (16:16)
[2025-09-24] MEDS: CIPROFLOXACIN/D5w 400 MG IVPB 400 MG/200 ML BAG 200 MG IV (16:26)
--- NOTE | 2025-09-24 17:56 | PC.NURSE ---
Patient taken to room via gurney. Patient sleepy but arousable.VSS. Transferred patient to bed with [employer]. at bedside.
[2025-09-24] MEDS: SODIUM CHLORIDE 0.9% 1000 ML 1,000 ML 75 ML IV (18:12)
[2025-09-25] VITALS (9 sets, daily range): BP systolic 106–132; BP diastolic 67–77; PULSE 64–107; RESP 18–19; TEMP 36.2–36.7; O2SAT 94–98; BMI 16.2
[2025-09-25] MEDS: MORPHINE SULF INJ 4 MG/ML VIAL 2 MG IVP ×4 (03:38→23:36)
[2025-09-25 05:46] LABS: Basophils # (Auto) 0.0 Thou/mm3 (0.0-0.2); Basophils % (Auto) 0 % (0-2.5); Eosinophils # (Auto) 0.0 Thou/mm3 (0.0-0.5); Eosinophils % (Auto) 0 % (0-10); Hematocrit 33.3 % (41.0-53.0); Hemoglobin 10.6 g/dL (13.5-16.0); Immature Granulocytes Auto 0.14 Thou/mm3 (0.00-0.00); Lymphocytes # (Auto) 0.7 Thou/mm3 (1.0-4.8); Lymphocytes % (Auto) 4 % (10-50); Mean Corpuscular HGB Conc 31.8 g/dl (31.0-37.0); Mean Corpuscular Hemoglobin 28.3 pg (25.0-35.0); Mean Corpuscular Volume 89 fL (80-100); Monocytes # (Auto) 0.8 Thou/mm3 (0.0-0.8); Monocytes % (Auto) 4 % (0-12); Neutrophils # (Auto) 16.0 Thou/mm3 (1.8-7.7); Neutrophils % (Auto) 90 % (37-80); Nucleated Red Blood Cell # 0.00 Thou/mm3 (0.00-0.00); Nucleated Red Blood Cell % 0 /100 WBC (0); Platelet Count 288 Thou/mm3 (140-440); RDW Standard Deviation 48.6 fL (35.1-43.9); Red Blood Count 3.75 Miln/mm3 (4.50-5.90); White Blood Count 17.7 Thou/mm3 (3.8-10.6)
[2025-09-25 06:31] LABS: Alanine Aminotransferase 12 U/L (10-49); Albumin, Serum 3.4 gm/dL (3.4-4.8); Albumin/Globulin Ratio 1.2 (1.2-2.2); Alkaline Phosphatase 168 U/L (46-116); Anion Gap 11 (7-16); Aspartate Amino Transferase 24 U/L (0-34); BUN/Creatinine Ratio 18 Ratio (12-20); Bilirubin,Total 0.4 mg/dL (0.3-1.2); Blood Urea Nitrogen 41 mg/dL (9-23); Calcium 8.8 mg/dL (8.3-10.6); Calcium (Corrected) 9.3 mg/dL (8.5-10.1); Carbon Dioxide 22.2 mMol/L (20.0-31.0); Chloride 102 mMol/L (98-107); Creatinine (Component) 2.3 mg/dL (0.6-1.3); Estimated Creatinine Clearance 26.1 mL/min (>60); Globulin 2.9 gm/dL (2.3-3.5); Glucose 93 mg/dL (74-106); Magnesium 1.8 mg/dL (1.6-2.6); Osmolality,Calculated 280 (275-295); Phosphorous 3.4 mg/dL (2.4-5.1); Potassium 4.0 mMol/L (3.4-5.1); Sodium 135 mMol/L (136-145); Total Protein 6.3 gm/dL (5.7-8.2); eGFR 31 See Note
[2025-09-25] MEDS: SODIUM CHLORIDE 0.9% 1000 ML 1,000 ML 75 ML IV (07:51)
--- NOTE | 2025-09-25 08:07 | PD.RESDS ---
Planned Discharge Date 09/25/25 DS: Providers Provider Date of admission: 09/24/25 10:00 Primary care physician: Deborah Dean PA-C Admitting Provider: Ant Berger MD Attending Provider on Admission: Ant Berger MD Attending Provider on DC: Heather Varela MD Discharging Provider: Heather Varela MD Hospital Course Hospital Course Hospital course: Mr Meade is a 64 year old man with a history significant for invasive urothelial carcinoma, with bilateral moderate to severe hydronephrosis and R nephrostomy tube and chronic viveros catheter that drains urine, CKD IIIb (follows with edith), and stable choreform movements who presents with right nephrostomy tube that fell out. is present at bedside who states that there was some swelling and bleeding from the R nephrostomy site. Patient does make urine, viveros in place ROS denies fever, chills, chest pain, endorses, moderate R flank pain, and moderate abdominal pain. PMH: Invasive urothelial carcinoma, CKD (previously on HD with recovered renal fxn, no longer on HD) PSH: BL nephrostomy tubes SH: Denies alcohol or illicit drug use. 30+ pack year smoking history. Allergies:?None Medications: Carbamazepine, midodrine ED course: VS: normotensive, hr 8-, rr 18, afebrile, satting 99 on RA Labs notable for wbc 17.6, alk phos 214, elevated ca 10.3 bun 2.3, bun 38, procal1.2 UA notable for turbid, 3+protein, 3+blood, leuk esterase + wbc 4212, no bacteria rbc 203 Imaging notable for CTAP with bl severe hydronephrosis, Prostate 30.6 cc no prostate nodules and renal us with severe bl hydronephrosis Tx Ceftriaxone 1gm morphine iv ED spoke to Yoli who recs bilateral nephrostomy tubes, he is not available to see the patient. Time Spent with Patient Time attestation: Total time spent providing and/or coordinating discharge services: Exam Vital Signs Temp Pulse Resp BP Pulse Ox O2 Del Method O2 Flow Rate 97.1 F 77 19 106/70 94 L Room Air 3 09/25/25 07:36 09/25/25 07:36 09/25/25 07:36 09/25/25 07:36 09/25/25 07:36 09/25/25 07:36 09/24/25 17:18 Discharge Plan Prescriptions/Referrals Prescriptions/Med Rec: New ciprofloxacin HCl [Cipro] 500 mg tablet 500 mg PO BID Qty: 14 0RF No Action sulfamethoxazole-trimethoprim [Bactrim DS] 800-160 mg tablet 1 tab PO BID Qty: 14 0RF carbamazepine 200 mg tablet 200 mg PO TID Qty: 60 0RF melatonin 3 mg Tablet 3 mg PO HS PRN (Reason: insomnia) Qty: 90 0RF midodrine 5 mg Tablet 5 mg PO TID PRN (Reason: sbp < 110) Qty: 30 0RF pantoprazole 40 mg Tablet,Delayed Release (Dr/Ec) 40 mg PO QDAY Qty: 30 0RF Referrals: Deborah Dean PA-C [Primary Care Provider] Patient/Caregiver Discharge Instructions Print Language: [place]
--- NOTE | 2025-09-25 08:09 | ESPR_ITS ---
<Statement entered by Haile Pearce MD - 09/25/25 17:25> Pt is seen at beside, bilaterally nephrostomy tubes are placed by IR and draining. Right tube is draining dark cola colored urine and left is draining purulent urine. CXR shows bilateral pneumonia , Pt is started on doxyclyclin and will continue rocephin for UTI. Pt has a tunneled dialysis cath which he will need to follow up outpatient with densitometrist to decide when to remove it as pt last dialysis session was first week of july and per the densitometrist said he no longer needs dialysis. Will confirm with densitometrist. Patient was seen and examined by me personally. I have directly supervised and reviewed documentation by the team resident and agree with its findings. ------- Plan of care was discussed with the attending, Dr. Ab Pearce, PGY-2 Documentation for date of: 09/25/25 Subjective Subjective Interval history: patient seen and examined at bedside s/p nephrostomy tube placement L tube draining puralent urine and R tube with koolaid colored urine viveros cath in place. started on doxy for pneumonia and skin infection where R nephrostomy tube was, wound cultures pending pt reports much improved choreoform movements after carbamezapime dosing. pm wbc count downtrending 16.5 from 17.7, plan for d/c tomorrow. Exam Vital Signs Temp Pulse Resp BP Pulse Ox O2 Del Method O2 Flow Rate 97.1 F 77 19 106/70 94 L Room Air 3 09/25/25 07:36 09/25/25 07:36 09/25/25 07:36 09/25/25 07:36 09/25/25 07:36 09/25/25 07:36 09/24/25 17:18 Narrative Exam Gen: No acute distress. A&Ox3, laying on his right side curled into position. HEENT: NCAT, PERRLA, EOMI, MMM, anicteric conjunctivae. CVS: normal S1 and S2. RRR. No M/R/G. Resp: CTA B/L. No rhonchi, rales, crackles or wheezing. Abd: soft, non-distended. BS+ in all 4 quadrants. Mild diffuse tenderness. MSK: Good ROM in BUE & BLE. bilateral nephrostomy tubes in place draining appropriately with L tube with puralent drainage, and right with blood tinged urine, : viveros catheter in place Neuro: CN II-XII not assessed. Strength 5/5 in BUE & BLE. Alert and oriented x3. Choreiform movements reduced after carbamezapime dose . Slurred speech, normal for patient. Psych: appropriate mood and affect. Objective Labs 09/25/25 14:15 09/25/25 04:46 Labs: Laboratory Results - last 24 hr 09/24/25 09/25/25 10:09 04:46 WBC 17.7 H 17.7 H RBC 4.19 L 3.75 L Hgb 12.0 L 10.6 L Hct 37.8 L 33.3 L MCV 90 89 MCH 28.6 28.3 MCHC 31.7 31.8 RDW Std Deviation 49.3 H 48.6 H Plt Count 393 D 288 D Neut % (Auto) 89 H 90 H Lymph % (Auto) 4 L 4 L [place] % (Auto) 6 4 Eos % (Auto) 0 0 Baso % (Auto) 0 0 Neut # (Auto) 15.7 H 16.0 H Lymph # (Auto) 0.8 L 0.7 L [place] # (Auto) 1.0 H 0.8 Eos # (Auto) 0.0 0.0 Baso # (Auto) 0.0 0.0 Immature Gran # (Auto) 0.13 H 0.14 H Absolute Nucleated RBC 0.00 0.00 Immature Gran % 1 H 1 H Nucleated RBC % 0 0 PT 11.8 INR 1.1 Sodium 135 L Potassium 4.0 Chloride 102 Carbon Dioxide 22.2 Anion Gap 11 BUN 41 H Creatinine 2.3 H Estim Creat Clear Calc 26.1 L eGFR 31 L BUN/Creatinine Ratio 18 Glucose 93 Calculated Osmolality 280 Calcium 8.8 D Corrected Calcium 9.3 Phosphorus 3.4 Magnesium 1.8 Total Bilirubin 0.4 AST 24 ALT 12 Alkaline Phosphatase 168 H D Total Protein 6.3 Albumin 3.4 D Globulin 2.9 Albumin/Globulin Ratio 1.2 Procalcitonin 1.20 H Quality Measures Quality Measures VTE prophylaxis Assessment & Plan Assessment Current Active Medications: Generic Name Dose Route Start Last Admin Trade Name Freq PRN Reason Stop Dose Admin Acetaminophen 650 mg 09/24/25 10:00 Acetaminophen 325 Mg Tablet PO 10/24/25 09:59 Q6H PRN PAIN SCALE 1-3 (mild Carbamazepine 200 mg 09/24/25 14:00 09/25/25 05:45 Carbamazepine 200 Mg Tablet PO 10/24/25 13:59 200 mg TID SHADY Administration Ceftriaxone Sodium/Dextrose 1 gm in 50 mls @ 100 mls/hr 09/24/25 10:03 09/24/25 11:26 Rocephin/D5w 1gm Iv Premix IV 10/01/25 10:02 Infused QDAY SHADY Infusion Sodium Chloride 1,000 mls @ 75 mls/hr 09/24/25 14:51 09/25/25 07:51 Ns IV 09/25/25 17:30 75 mls/hr .[id number] SHADY Administration Magnesium Sulfate 4 gm in 50 mls @ 12.5 mls/hr 09/25/25 07:56 Magnesium Sulfate Ivpb IV 09/25/25 11:55 X1 ONE Midodrine 5 mg 09/24/25 13:39 Midodrine 5 Mg Tablet PO 10/24/25 13:38 TID PRN sbp < 110 Morphine Sulfate 2 mg 09/24/25 10:06 09/25/25 03:38 Morphine Sulf Inj 4 Mg/Ml Vial IVP 09/29/25 10:05 2 mg Q4HR PRN Administration mod-severe pain 5-8 Ondansetron HCl 4 mg 09/24/25 10:00 Ondansetron Inj 2 Mg/Ml Inj 2 Ml IVP 10/24/25 09:59 Q6H PRN NAUSEA OR VOMITING Protocol Pantoprazole Sodium 40 mg 09/25/25 09:00 Pantoprazole Inj 40 Mg Vial IVP 10/25/25 08:59 QDAY SHADY Plan Mr Meade is a 64 year old man with a history significant for invasive urothelial carcinoma, with bilateral moderate to severe hydronephrosis and R nephrostomy tube and chronic viveros catheter that drains urine, CKD IIIb (follows with edith outpatient), and stable choreform movements who presented with displacement of the right nephrostomy tube, s/p IR bilateral nephrostomy tube replacement, on ceftriaxone and doxy. plan for d/c tomorrow. UTI Leukocytosis downtrending UA with turbid urine, RBC and WBC 4212 and leuk esterase + WBC elevated 17.7, procal 1.2 patient endorses some mild abdominal pain, CTAP with no signs of perinephric stranding. Patient has chronic viveros that has not been exchanged recently, pt will likely need to have viveros replaced prior to discharge Tx Ceftriaxone 1gm qd (09/24 Blood cx NGTD @24 hrs f/u with urology outpatient for exchange of viveros cath (viveros should not be removed by non urologist) Dr. Kent notified, however he is unavailable to see the patient this week. PNA CXR with bilateral PNA Plan Doxycycline 100mg BID PO (09/25- ): plan to d/c patient with course of doxy Soft tissue infection (where R nephrostomy tube was) wound culture pending, prelim with [facility] Plan Doxycycline 100 mg BID PO (09/25- ) plan for 5day course CKD IIIb 2/2 Proteinuria 3+ Hematuria 3+ BL severe hydronephrosis -chronic with displaced nephrostomy tubes 2/2 Invasive urothelial carcinoma with glandular differentiation patient previously had ESRD, and was on HD tuesday. He had recovery of his renal function and was discontinued on HD. patient initially had bilateral percutaneous nephrostomy tubes, but then the left fell out in may 2025, and was not replaced, he was discharged at that time with R nephrostomy and viveros cath. patient follows with [facility] outpatient for cancer, and has not been connected with urologist outpatient because of error with referral. pt presented on this admission with displaced Right nephrostomy tube. eGFR 31 Dx CTAP and Renal US with bilateral hydronephrosis, prostate volume 30. INR and PT wnl Plan s/p BL nephrostomy tube with IR CTM renal fxn Patient follows with Dr. Santana outpatient, Anemia of chronic disease likely 2/2 bladder cancer Hgb 12 Plan: Daily CBC Choreiform vs diskinetic like movements- improved Plan Continue home carbamezapime 200 mg TID HoTN Plan Midorine 5mg TID for SBP<100 Hypercalcemia - resolved Corrected Ca 10.3 , likely 2/2 dehydration. Dispo: Med tele, onging abx treatment for uti, pna and soft tissue infection Diet: renal diet Bowel Reg: n/a VTE ppx: heparin 5000 q12h GI ppx: protonix 40 IV QD Code status: FULL Plan discussed with my attending Dr. Berger and my senior Dr. Ramses Varela MD PGY1 Attending Provider Attestation/Addendum I have seen and examined the patient. I was physically present for the wallace portions of the services provided including history, physical exam, diagnosis, treatment plans and orders. I agree with assessment and plan of care as documented by residents. Patient seen and examined at bedside this morning, appears comfortable and denies any new complaints. Has bilateral nephrostomy tube placed yesterday with IR, appears to be functioning well. Noted to have purulent urine on left side and darker urine on the right side. Adjusted antibiotic regimen to Rocephin with Doxy to cover UTI, pneumonia and skin infection. WBC slowly downtrending. Culture results pending. Even though this this note was carefully revised there may still be minor errors in cco due to voice recognition software. Ant Berger MD
[2025-09-25] MEDS: cefTRIAXone/D5w 1gm IV premix 1 GM/50 ML BAG IV (08:39)
[2025-09-25] MEDS: AZITHROMYCIN 250 MG TABLET 500 MG PO (08:40)
[2025-09-25] MEDS: Magnesium Sulfate 4 GM Ivpb 4 GM/50 ML BAG IV (09:21)
[2025-09-25] MEDS: DOXYCYCLINE 100 MG TABLET PO ×2 (11:43→20:03)
[2025-09-25 14:28] LABS: Basophils # (Auto) 0.0 Thou/mm3 (0.0-0.2); Basophils % (Auto) 0 % (0-2.5); Eosinophils # (Auto) 0.1 Thou/mm3 (0.0-0.5); Eosinophils % (Auto) 0 % (0-10); Hematocrit 32.3 % (41.0-53.0); Hemoglobin 10.1 g/dL (13.5-16.0); Immature Granulocytes Auto 0.11 Thou/mm3 (0.00-0.00); Lymphocytes # (Auto) 0.9 Thou/mm3 (1.0-4.8); Lymphocytes % (Auto) 5 % (10-50); Mean Corpuscular HGB Conc 31.3 g/dl (31.0-37.0); Mean Corpuscular Hemoglobin 27.8 pg (25.0-35.0); Mean Corpuscular Volume 89 fL (80-100); Monocytes # (Auto) 0.8 Thou/mm3 (0.0-0.8); Monocytes % (Auto) 5 % (0-12); Neutrophils # (Auto) 14.6 Thou/mm3 (1.8-7.7); Neutrophils % (Auto) 89 % (37-80); Nucleated Red Blood Cell # 0.00 Thou/mm3 (0.00-0.00); Nucleated Red Blood Cell % 0 /100 WBC (0); Platelet Count 327 Thou/mm3 (140-440); RDW Standard Deviation 47.5 fL (35.1-43.9); Red Blood Count 3.63 Miln/mm3 (4.50-5.90); White Blood Count 16.5 Thou/mm3 (3.8-10.6)
[2025-09-25] MEDS: HEPARIN SOD INJ 5000 UNIT/ML VIAL SC (20:04)
[2025-09-26] VITALS: BP 113/68; PULSE 93; RESP 16; TEMP 36.9; O2SAT 98
[2025-09-26 04:00] VITALS: BP 122/71; PULSE 67; PULSE 78; RESP 18; TEMP 36.2; O2SAT 96
[2025-09-26 06:02] LABS: Basophils # (Auto) 0.0 Thou/mm3 (0.0-0.2); Basophils % (Auto) 0 % (0-2.5); Eosinophils # (Auto) 0.0 Thou/mm3 (0.0-0.5); Eosinophils % (Auto) 0 % (0-10); Hematocrit 34.0 % (41.0-53.0); Hemoglobin 10.8 g/dL (13.5-16.0); Immature Granulocytes Auto 0.13 Thou/mm3 (0.00-0.00); Lymphocytes # (Auto) 0.6 Thou/mm3 (1.0-4.8); Lymphocytes % (Auto) 4 % (10-50); Mean Corpuscular HGB Conc 31.8 g/dl (31.0-37.0); Mean Corpuscular Hemoglobin 27.9 pg (25.0-35.0); Mean Corpuscular Volume 88 fL (80-100); Monocytes # (Auto) 0.9 Thou/mm3 (0.0-0.8); Monocytes % (Auto) 6 % (0-12); Neutrophils # (Auto) 13.7 Thou/mm3 (1.8-7.7); Neutrophils % (Auto) 89 % (37-80); Nucleated Red Blood Cell # 0.00 Thou/mm3 (0.00-0.00); Nucleated Red Blood Cell % 0 /100 WBC (0); Platelet Count 399 Thou/mm3 (140-440); RDW Standard Deviation 47.5 fL (35.1-43.9); Red Blood Count 3.87 Miln/mm3 (4.50-5.90); White Blood Count 15.4 Thou/mm3 (3.8-10.6)
[2025-09-26 06:24] LABS: Alanine Aminotransferase 14 U/L (10-49); Albumin, Serum 3.4 gm/dL (3.4-4.8); Albumin/Globulin Ratio 1.1 (1.2-2.2); Alkaline Phosphatase 198 U/L (46-116); Anion Gap 10 (7-16); Aspartate Amino Transferase 22 U/L (0-34); BUN/Creatinine Ratio 19 Ratio (12-20); Bilirubin,Total 0.3 mg/dL (0.3-1.2); Blood Urea Nitrogen 42 mg/dL (9-23); Calcium 9.2 mg/dL (8.3-10.6); Calcium (Corrected) 9.7 mg/dL (8.5-10.1); Carbon Dioxide 23.4 mMol/L (20.0-31.0); Chloride 101 mMol/L (98-107); Creatinine (Component) 2.2 mg/dL (0.6-1.3); Estimated Creatinine Clearance 27.2 mL/min (>60); Globulin 3.0 gm/dL (2.3-3.5); Glucose 91 mg/dL (74-106); Magnesium 2.2 mg/dL (1.6-2.6); Osmolality,Calculated 278 (275-295); Phosphorous 2.8 mg/dL (2.4-5.1); Potassium 3.8 mMol/L (3.4-5.1); Sodium 134 mMol/L (136-145); Total Protein 6.4 gm/dL (5.7-8.2); eGFR 33 See Note
--- NOTE | 2025-09-26 07:28 | PD.RESDS ---
Planned Discharge Date 09/26/25 DS: Providers Provider Date of admission: 09/24/25 10:00 Primary care physician: Deborah Dean PA-C Admitting Provider: Ant Berger MD Attending Provider on Admission: Ant Berger MD Attending Provider on DC: Ant Berger MD Discharging Provider: Ant Berger MD DS: Diagnosis Problem List Completed Was Problem List Reviewed/Reconciled?: Yes Hospital Course Hospital Course Hospital course: Hospital Course Mr Meade is a 64 year old man with a history significant for invasive urothelial carcinoma, with bilateral moderate to severe hydronephrosis and R nephrostomy tube and chronic viveros catheter that drains urine, CKD IIIb (follows with edith outpatient), and stable choreform movements who presented with displacement of the right nephrostomy tube. He was found to have UTI which was treated inpatient with Ceftriaxone 1 gm qd. IR replaced his bilateral nephrostomy tubes. Chest XR with concern for bilateral pna, so patient was started on doxycycline 100 mg bid. Patient was transitioned from IV to PO abx for the UTI with ciproflox 500mg BID, with plan to complete a total of 7 day abx course. Leukocytosis downtrended and patient remained afebrile. Patient has a history of choreiform vs diskinetic movements that were evaluated by neurology while inpatient in may. while inpatient, he was given carbamezepine 200 mg TID which resolved his shakes or tremors. Patient was hemodynamically stable, labs were reviewed, pain was well controlled, patient denies any shortness of breath and is saturating >94% on RA, pt was deemed stable and medically cleared for discharge. Patient will need to follow up with urologist within 1 week to have viveros catheter exchanged. Diagnoses UTI CAP CKD IIIb 2/2 Proteinuria 3+ Hematuria 3+ BL severe hydronephrosis -chronic with displaced nephrostomy tubes 2/2 Invasive urothelial carcinoma with glandular differentiation Anemia of chronic disease Choreiform vs diskinetic like movements- improved HoTN Discharge instructions - for your urinary tract infection, please continue taking ciprofloxacin 500 mg twice a day for 5 days - for your pneumonia, please continue taking the doxycycline 100mg twice a day for 5 more days. - you were started on carbamezepine 200 mg three times a day, please take for help with the shaking and tremors. - Please follow up with your urologist in 1 week to have viveros catheter exchanged - Follow up with PCP within 1 week of discharge, if you do not have a primary care physician you can come see us at the [facility] by calling [phone] - Continue rest of medications as previously prescribed - Return to the ED or call EMS if symptoms return and/or worsen Plan discussed with my attending Dr. Ab Varela MD PGY1 Time Spent with Patient Time attestation: Total time spent providing and/or coordinating discharge services: 38 minutes Time spent: Greater than 30 minutes Exam Vital Signs Temp Pulse Resp BP Pulse Ox O2 Del Method O2 Flow Rate 97.1 F 67 18 122/71 96 Room Air 3 09/26/25 04:00 09/26/25 04:00 09/26/25 04:00 09/26/25 04:00 09/26/25 04:00 09/26/25 04:00 09/24/25 17:18 Narrative Exam Gen: No acute distress. A&Ox3, sitting upright in bed after breakfast, speech is difficult to understand HEENT: NCAT, PERRLA, EOMI, MMM, anicteric conjunctivae. popr dentition CVS: normal S1 and S2. RRR. No M/R/G. Resp: CTA B/L. No rhonchi, rales, crackles or wheezing. Abd: soft, non-distended. BS+ in all 4 quadrants. Mild diffuse tenderness. MSK: Good ROM in BUE & BLE. bilateral nephrostomy tubes in place draining appropriately right tube with blood tinged urine, : viveros catheter in place draining yellow urine. Neuro: CN II-XII not assessed. Strength 5/5 in BUE & BLE. Alert and oriented x3. Choreiform movements reduced after carbamezapime . Slurred speech, normal for patient. Psych: appropriate mood and affect. Discharge Plan Plan Patient Disposition: HOME (Self Care) Patient condition on transfer: Stable Care Plan Goals: - for your urinary tract infection, please continue taking ciprofloxacin 500 mg twice a day for 5 days - for your pneumonia, please continue taking the doxycycline 100mg twice a day for 5 more days. - you were started on carbamezepine 200 mg three times a day, please take for help with the shaking and tremors. - Please follow up with your urologist in 1 week to have viveros catheter exchanged - Follow up with PCP within 1 week of discharge, if you do not have a primary care physician you can come see us at the [facility] by calling [phone] - Continue rest of medications as previously prescribed - Return to the ED or call EMS if symptoms return and/or worsen Prescriptions/Referrals Prescriptions/Med Rec: New ciprofloxacin HCl [Cipro] 500 mg tablet 500 mg PO BID Qty: 14 0RF doxycycline hyclate 100 mg capsule 100 mg PO BID Qty: 10 0RF Continued melatonin 3 mg Tablet 3 mg PO HS PRN (Reason: insomnia) Qty: 90 0RF midodrine 5 mg Tablet 5 mg PO TID PRN (Reason: sbp < 110) Qty: 30 0RF pantoprazole 40 mg Tablet,Delayed Release (Dr/Ec) 40 mg PO QDAY Qty: 30 0RF carbamazepine 200 mg tablet 200 mg PO TID Qty: 60 0RF Referrals: Deborah Dean PA-C [Primary Care Provider] Patient/Caregiver Discharge Instructions Education Materials: Percutaneous Nephrostomy, Percutaneous Nephrostomy Dc Print Language: Faroese Stand Alone Forms: Maren Award Info., Patient Portal Info Letter Discharge Order Discharge Orders: Discharge (Routine); Ordered 09/26/25 Ordered By: Heather Varela Quality Discharge Quality Measures VTE prophylaxis Attestestation Attestation I have seen and examined the patient. I was physically present for the wallace portions of the services provided including history, physical exam, diagnosis, treatment plans and orders. I agree with assessment and plan of care as documented by residents. Even though this this note was carefully revised there may still be minor errors in mine captain due to voice recognition software. Ant Berger MD
[2025-09-26 07:38] VITALS: BP 105/72; PULSE 89; RESP 18; TEMP 36.2; O2SAT 96
[2025-09-26 08:00] VITALS: PULSE 91
[2025-09-26] MEDS: HEPARIN SOD INJ 5000 UNIT/ML VIAL SC (08:08)
[2025-09-26] MEDS: cefTRIAXone/D5w 1gm IV premix 1 GM/50 ML BAG IV (08:08)
[2025-09-26] MEDS: DOXYCYCLINE 100 MG TABLET PO (08:09)
[2025-09-26] MEDS: ACETAMINOPHEN 325 MG TABLET 650 MG PO (10:19)
== END 2025-09-26 11:12 | disposition home or self-care (01) | DRG 466 ==
LOC: SERX 09-24 09:43 → SERHOLD 09-24 10:13 → S3SX 09-24 12:08
PROVIDERS: Nurse Practitioner Family; Admitting Provider Student in an Organized Health Care Education/Training Program; Emergency Provider Emergency Medicine; PCP Physician Assistant; Visit Provider Student in an Organized Health Care Education/Training Program
DX: T83.022A Displacement of nephrostomy catheter, initial encounter (principal); N13.6 Pyonephrosis; C67.9 Malignant neoplasm of bladder, unspecified; D63.0 Anemia in neoplastic disease; E83.52 Hypercalcemia; E86.0 Dehydration; N18.32 Chronic kidney disease, stage 3b; L08.9 Local infection of the skin and subcutaneous tissue, unspecified; J18.9 Pneumonia, unspecified organism; R59.0 Localized enlarged lymph nodes; Z87.891 Personal history of nicotine dependence; Z95.828 Presence of other vascular implants and grafts; Z79.899 Other long term (current) drug therapy; Y73.2 Prosthetic and other implants, materials and accessory gastroenterology and urology devices associated with adverse incidents; Y84.6 Urinary catheterization as the cause of abnormal reaction of the patient, or of later complication, without mention of misadventure at the time of the procedure
CPT/HCPCS: 36415; 71045; 74176; 74425; 76770; 80053; 81001; 83735; 84100; 84145; 85025; 85610; 87040; 87070; 87075; 87077; 87086; 87186; 87205; 93225; 96365; 96366; 96375; 96376; 99152; 99284; C1729; C1769; J0696; J0744; J1171; J1642; J1644; J2250; J2270; J2405; J2470; J3010; J3475; J3490; J7030; J7050; J7120; Q9958; A9270

== ENCOUNTER 2025-10-14 12:45 | Inpatient (IN) | payer MEDICAID, SELFPAY ==
[2025-10-14] VITALS (11 sets, daily range): BP systolic 97–111; BP diastolic 54–69; PULSE 87–118; RESP 12–26; TEMP 36.6–40.5; O2SAT 94–98; BMI 19.3
--- NOTE | 2025-10-14 12:55 | XR_ITS ---
EXAMINATION: AP chest single view TECHNIQUE: AP portable upright chest single view Date and time: October 14, 2025, 1336 hours, comparison September 24, 2025 INDICATIONS: Chest pain beginning 2 days ago. FINDINGS: Subtle diffuse left lung pneumonia as well as right base pneumonia Normal heart size Right subclavian dialysis catheter stable position Normal heart size IMPRESSION: Significant bilateral pneumonia
--- NOTE | 2025-10-14 12:55 | EKG_ITS ---
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
--- NOTE | 2025-10-14 13:04 | EDNOTE_ITS ---
ED Weakness RME/HPI General Chief complaint: Weakness Stated complaint: SEPSIS Time Seen by Provider: 10/14/25 12:49 Arrival date/time: 10/14/25 12:45 RME / HPI RME / HPI Narrative: 64 year old male with history of invasive urothelial cacinoma, bilateral hydronephrosis s/p nephrostomy tube placement, chronic viveros catheter use, CKD and underwent hemodialysis (last dialyzed July 2025) presents to the ED BIBA from home for evaluation of weakness today. Per medics, family on scene reported patient appears globally weak and lethargic. State family in the household were recently diagnosed with influenza. Per medics, on scene the patient was hypotensive and hot to touch. On arrival to ED, patient unable to provide any additional history. Related Data Previous Rx's ?Medication ?Instructions ?Recorded melatonin 3 mg tablet 3 mg PO HS PRN insomnia #90 tabs 05/29/25 midodrine 5 mg tablet 5 mg PO TID PRN sbp < 110 #3 0 tabs 05/29/25 pantoprazole 40 mg tablet,delayed 40 mg PO QDAY #30 ta bs 05/29/25 release carbamazepine 200 mg tablet 200 mg PO TID #60 tabs Allergies Allergy/AdvReac Type Severity Reaction Status Date / Time No Known Allergies Allergy Verified 09/23/25 17:07 Review of Systems Review of Systems ROS Unobtainable: unobtainable due to mental status Past Medical History Past Medical History GENITOURINARY: Positive Genitourinary Disorders, Renal Disease and Dialysis OTHER HISTORY: Positive Cancer Family History FAMILY HISTORY: Negative Family Cardiac Disorders Social History SMOKING STATUS: Never smoker SUBSTANCE USE: does not use ED Exam Narrative Physical exam: GENERAL APPEARANCE: Lethargic, altered, cachectic HEENT: Normocephalic, atraumatic; EOMI; mucous membranes pink, dry; oropharynx clear NECK: Supple LUNGS: Crackles; no wheezes, no rales, no rhonchi HEART: Tachycardic, regular rhythm; normal S1, S2; no murmurs ABDOMEN: non distended; normal BS; soft, no tenderness, no guarding, no rebound; no masses, no organomegaly, no hernia BACK: bilateral nephrostomy tubes in place EXTREMITIES: atraumatic; no edema NEUROLOGIC: Lethargic, altered SKIN: warm, dry, normal color; petechiae to the left lower extremity Course Quality Measures Current suspected stage: severe sepsis Possible source: pulmonary Blood cultures ordered: completed in ED Antibiotic ordered: Yes Pertinent labs: 10/14/25 13:05 Lactic Acid 4.3 H* mMol/L (0.4-2.0) Procalcitonin 10.36 H ng/ml (0.0-0.49) sepsis Orders Category Date Time Status Admit to Inpatient Status Routine Admission 10/14/25 15:18 Active Patient Condition Routine Admission 10/14/25 15:17 Ordered Silk 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 Printer Helper NOW Care 10/14/25 12:55 Active Cooling Measures NEEDED Care 10/14/25 12:57 Active Dialysis [Hemodialysis] Urgent Care 10/14/25 14:24 Active EKG (ED ONLY) *Do not use* NOW Care 10/14/25 12:55 Completed NPO NOW Care 10/14/25 15:18 Active Notify provider NEEDED Care 10/14/25 15:17 Active Obtain weight daily Care 10/14/25 15:[address] head/brain wo con Stat Exams 10/14/25 15:11 Completed EKG (ED Only) Stat Exams 10/14/25 12:55 Draft XR chest 1V portable Stat Exams 10/14/25 12:55 Completed ABG [Arterial Blood Gas] Stat Lab 10/14/25 16:34 Completed B-Type Natriuretic Peptide Stat Lab 10/14/25 13:05 Completed Blood Culture (Lab) Stat Lab 10/14/25 13:05 Results CBC AM DRAW Lab 10/15/25 02:20 Completed CBC AM DRAW Lab 10/16/25 03:45 Completed CBC AM DRAW Lab 10/17/25 05:00 Ordered CBC Stat Lab 10/14/25 13:05 Completed CBC Stat Lab 10/14/25 15:54 Completed CMP [Comprehensive Metabolic Panel] Stat Lab 10/14/25 15:54 Completed Comprehensive Metabolic Panel AM DRAW Lab 10/15/25 02:20 Completed Comprehensive Metabolic Panel AM DRAW Lab 10/16/25 03:45 Completed Comprehensive Metabolic Panel AM DRAW Lab 10/17/25 05:00 Ordered Comprehensive Metabolic Panel Stat Lab 10/14/25 13:05 Completed Lactate (Lactic Acid) Stat Lab 10/14/25 13:05 Completed Lactic Acid [Lactate (Lactic Acid)] Stat Lab 10/14/25 15:54 Completed Lipase Stat Lab 10/14/25 13:05 Completed Lipid Panel AM DRAW Lab 10/15/25 02:20 Completed Mag [Magnesium] Stat Lab 10/14/25 15:54 Completed Magnesium AM DRAW Lab 10/15/25 02:20 Completed Magnesium AM DRAW Lab 10/16/25 03:45 Completed Magnesium AM DRAW Lab 10/17/25 05:00 Ordered Magnesium Stat Lab 10/14/25 13:05 Completed Partial Thromboplastin Time Stat Lab 10/14/25 13:05 Completed Phosphorous AM DRAW Lab 10/15/25 02:20 Completed Phosphorous AM DRAW Lab 10/16/25 03:45 Completed Phosphorous AM DRAW Lab 10/17/25 05:00 Ordered Phosphorous Stat Lab 10/14/25 15:54 Completed Procalcitonin Stat Lab 10/14/25 13:05 Completed Prothrombin Time with INR Stat Lab 10/14/25 13:05 Completed Troponin I Stat Lab 10/14/25 13:05 Completed Urinalysis Stat Lab 10/14/25 13:40 Completed Urinalysis Stat Lab 10/14/25 13:40 Completed Urine Culture Routine Lab 10/14/25 13:40 Received Urine Culture Stat Lab 10/14/25 13:40 Completed Acetaminophen Ivpb [Ofirmev Inj] Med 10/14/25 12:57 Discontinued 1,000 mg in 100 ml IV X1 Acetaminophen Tab [Tylenol Tab] Med 10/14/25 15:17 Active 650 mg PO Q6H PRN Albumin Human-Kjda 25% Ivpb [Albuminex 25% Ivpb] Med 10/14/25 14:26 Active 25 gm in 100 ml IV Q30MIN Calcium Gluconate 10% Inj Med 10/14/25 13:55 Discontinued 1 gm IV X1 ONE Cathflo (Alteplase) Inj 4 mg Med 10/14/25 15:10 Discontinued Sterile Water 4.4 ml INDWELLCAT X1 Dextrose 50% Syr [D50w Syringe Abboject] Med 10/14/25 13:57 Discontinued 50 ml IVP X1 ONE Insulin Regular Med 10/14/25 13:57 Discontinued 5 unit IV X1 ONE Nitroglycerin [Nitrostat 1/150] Med 10/14/25 12:51 Discontinued 0.4 mg SL [id number] PRN Piper/Tazo 3.375 gm Premix [Zosyn] Med 10/14/25 12:55 Discontinued 3.375 gm in 50 ml IV X1 Sodium Chloride 0.9% 1000 ml [Ns] 1,000 ml Med 10/14/25 15:00 Discontinued IV 333 mls/hr Sodium Chloride 0.9% 1000 ml [Ns] 1,000 ml Med 10/14/25 12:55 Discontinued IV 999 mls/hr Vancomycin/Ns 1 gm Ivpb 200 ml Med 10/14/25 12:55 Discontinued IV X1 Code Status Routine Oth 10/14/25 15:17 Ordered Oxygen Delivery DAILY RT 10/14/25 15:19 Active Vital Signs Vital signs: Vital Signs Temperature 104.9 F H 10/14/25 13:06 Pulse Rate 118 H 10/14/25 13:06 Respiratory Rate 12 10/14/25 13:06 Blood Pressure 111/69 10/14/25 13:06 Pulse Oximetry (%) 94 L 10/14/25 13:06 Oxygen Delivery Method Nasal Cannula 10/14/25 13:06 Oxygen Flow Rate 4 10/14/25 13:06 Weakness MDM Narrative MDM Narrative:: Deepika Sutherland am scribing for and in the presence of Dr. Nam. 1400p: Patient potassium is 6.5. I spoke with rn security Dr. Santana. States she will arrange for the patient to be dialyzed today. 1420p: I spoke with hospitalist team A for admission. Patient data External records reviewed:: [facility] previous records and EMS form Clinical information provided by:: EMS Social determinants that could affect healthcare access:: none Patient has the following chronic illnesses:: invasive urothelial cacinoma, bilateral hydronephrosis s/p nephrostomy tube placement, chronic viveros catheter use, CKD and underwent hemodialysis (last dialyzed July 2025) How is presenting disease/condition affected by chronic disease/condition?: exacerbated by Evaluation data The following diagnostics were reviewed and interpreted by me:: lab results, radiology exam(s) and EKG tracing(s) (Sinus tachycardia, rate 119, no STEMI. ) Lab and/or radiology exams considered but not ordered:: None Interpretation Summary: Ordering Physician: Kelsi Nam MD Date of Service: 10/14/25 Procedure(s): XR chest 1V portable Accession Number(s): [id number] cc: Srinivasa Moncada MD; Kelsi Nam MD~ EXAMINATION: AP chest single view TECHNIQUE: AP portable upright chest single view Date and time: October 14, 2025, 1336 hours, comparison September 24, 2025 INDICATIONS: Chest pain beginning 2 days ago. FINDINGS: Subtle diffuse left lung pneumonia as well as right base pneumonia Normal heart size Right subclavian dialysis catheter stable position Normal heart size IMPRESSION: Significant bilateral pneumonia Dictated By: Srinivasa Moncada MD Signed By: <Electronically signed by Srinivasa Moncada MD in OV> 10/14/25 1407 Medications / Prescriptions Medications or Prescriptions considered but not ordered:: None Medication administrations:: Medication Administration History Acetaminophen (Acetaminophen 325 Mg Tablet) 650 mg PO Q6H PRN PRN Reason: Fever >101.5 Stop: 11/13/25 15:16 Carbamazepine (Carbamazepine 200 Mg Tablet) 200 mg PO TID [facility] Stop: 11/14/25 21:59 Last Admin: 10/16/25 05:14 Dose: 200 mg Documented By: Admin: 10/15/25 21:53 Dose: 200 mg Documented By: MACEY Citric Acid/Sodium Citrate (Citric Acid/Sodium Citr 15 Ml Udc (Bicitra)) 30 ml PO BID SHADY Stop: 11/14/25 20:59 Last Admin: 10/16/25 08:07 Dose: 30 ml Documented By: Admin: 10/15/25 20:12 Dose: 30 ml Documented By: MACEY Dextrose (Dextrose 50%-Water Inj 50 Ml Syringe) 25 ml IV Q15MIN PRN PRN Reason: BG 50-70 responsive npo pt Stop: 11/14/25 11:56 Dextrose (Dextrose 50%-Water Inj 50 Ml Syringe) 50 ml IV Q15MIN PRN PRN Reason: BG <50 OR BG <70 & pt unresponsive Stop: 11/14/25 11:56 Glucagon (Glucagon Inj 1 Mg Vial) 1 mg IM Q15MIN PRN PRN Reason: BG <70, and no IV access Heparin Sodium (Porcine) (Heparin Sod Inj 5000 Unit/Ml Vial) 5,000 unit SC Q12HR [facility] Stop: 10/29/25 20:59 Last Admin: 10/16/25 08:15 Dose: 5,000 unit Documented By: TIM Co-signed By: MARCELA Admin: 10/15/25 20:12 Dose: 5,000 unit Documented By: MACEY Co-signed By: Albumin Human (Albuminex 25% Ivpb) 25 gm in 100 mls @ 0 mls/hr IV Q30MIN PRN PRN Reason: To maintain SBP>90 Vancomycin/Sodium Chloride (Vancomycin/Ns 500 Mg Ivpb) 100 mls @ 120 mls/hr IV Q24H [facility] Stop: 10/22/25 09:59 Last Infusion: 10/15/25 11:36 Dose: Infused Documented By: Admin: 10/15/25 10:46 Dose: 120 mls/hr Documented By: TIM Cefepime HCl 1 gm/ Sodium (Chloride) 50 mls @ 100 mls/hr IV QDAY [facility] Stop: 10/23/25 08:59 Last Admin: 10/16/25 08:06 Dose: 100 mls/hr Documented By: TIM Albumin Human (Albuminex 25% Ivpb) 25 gm in 100 mls @ 100 mls/hr IV TID [facility] Stop: 10/19/25 05:59 Last Infusion: 10/16/25 06:22 Dose: Infused Documented By: Admin: 10/16/25 05:15 Dose: 100 mls/hr Documented By: MACEY Lactated Ringer's (Lactated Ringers) 1,000 mls @ 125 mls/hr IV .Q8H [facility] Stop: 10/16/25 14:14 Last Admin: 10/16/25 06:22 Dose: 125 mls/hr Documented By: MACEY Melatonin (Melatonin 3 Mg Tablet) 3 mg PO HS PRN PRN Reason: INSOMNIA Stop: 11/14/25 15:30 Last Admin: 10/15/25 18:43 Dose: 3 mg Documented By: MARCELA(2) Midodrine (Midodrine 5 Mg Tablet) 5 mg PO TID PRN PRN Reason: sbp < 110 Stop: 11/14/25 15:30 Last Admin: 10/15/25 16:13 Dose: 5 mg Documented By: MARCELA(2) Pantoprazole Sodium (Pantoprazole 40 Mg Tablet) 40 mg PO QDAY [facility]; Protocol Stop: 11/15/25 08:59 Last Admin: 10/16/25 08:07 Dose: 40 mg Documented By: TIM Patiromer (Patiromer Calcium 8.4 Gm Packet) 8.4 gm PO PRN PRN PRN Reason: if K > 5.4 Stop: 11/15/25 08:21 Pharmacy Consult (Vancomycin Pharmacy To Dose 1 Each Each) 1 each IV QDAY PRN PRN Reason: SEPSIS Stop: 11/14/25 08:59 Discontinued Medications Calcium Chloride (Calcium Chloride 10% Inj 10 Ml Syrg) 10 ml IV X1 ONE Stop: 10/14/25 16:43 Last Admin: 10/14/25 18:20 Dose: 10 ml Documented By: VG Calcium Gluconate (Calcium Gluconate 10% Inj 1 Gm/10 Ml Vial) 1 gm IV X1 ONE Stop: 10/14/25 13:56 Last Admin: 10/14/25 14:20 Dose: 1 gm Documented By: ARF Alteplase, Recombinant 4 mg/ (Sterile Water 4.4 ml) 0 mg INDWELLCAT X1 ONE Stop: 10/14/25 15:11 Last Admin: 10/14/25 15:26 Dose: 4 mg Documented By: MM Comments: 2 MG PER PORT Dextrose (Dextrose 50%-Water Inj 50 Ml Syringe) 50 ml IVP X1 ONE Stop: 10/14/25 13:58 Last Admin: 10/14/25 14:19 Dose: 50 ml Documented By: ARF Dextrose (Dextrose 50%-Water Inj 50 Ml Syringe) 25 ml IV Q15MIN ONE Stop: 10/14/25 16:44 Last Admin: 10/14/25 18:19 Dose: 25 ml Documented By: KATE Dextrose (Dextrose 50%-Water Inj 50 Ml Syringe) 100 ml IV X1 ONE Stop: 10/15/25 11:58 Last Admin: 10/15/25 12:44 Dose: 100 ml Documented By: TIM Sodium Chloride (Ns) 1,000 mls @ 999 mls/hr IV .Q1H1M ONE Stop: 10/14/25 13:55 Last Infusion: 10/14/25 16:36 Dose: Infused Documented By: Admin: 10/14/25 13:15 Dose: 999 mls/hr Documented By: ARF Vancomycin/Sodium Chloride (Vancomycin/Ns 1 Gm Ivpb) 200 mls @ 120 mls/hr IV X1 ONE Stop: 10/14/25 14:34 Last Infusion: 10/14/25 16:36 Dose: Infused Documented By: Admin: 10/14/25 14:21 Dose: 120 mls/hr Documented By: ARF Piperacillin/Tazobactam/Dextrose (Zosyn) 3.375 gm in 50 mls @ 100 mls/hr IV X1 ONE; Protocol Stop: 10/14/25 13:24 Last Infusion: 10/14/25 14:11 Dose: Infused Documented By: Admin: 10/14/25 13:15 Dose: 100 mls/hr Documented By: ARF Acetaminophen (Ofirmev Inj) 1,000 mg in 100 mls @ 250 mls/hr IV X1 ONE Stop: 10/14/25 13:20 Last Infusion: 10/14/25 14:11 Dose: Infused Documented By: Admin: 10/14/25 13:15 Dose: 250 mls/hr Documented By: ARF Sodium Chloride (Ns) 1,000 mls @ 333 mls/hr IV .Q3H1M ONE Stop: 10/14/25 18:00 Last Admin: 10/14/25 16:35 Dose: Not Given Documented By: ARF Non-Admin Reason: Discontinued Piperacillin Sod/Tazobactam (Sod 4.5 gm/ Sodium Chloride) 100 mls @ 200 mls/hr IV Q8HR [facility]; Protocol Stop: 10/21/25 21:59 Last Infusion: 10/15/25 06:04 Dose: Infused Documented By: Admin: 10/15/25 05:22 Dose: 200 mls/hr Documented By: Infusion: 10/14/25 23:31 Dose: Infused Documented By: Admin: 10/14/25 23:01 Dose: 200 mls/hr Documented By: MLD Vancomycin HCl (Vancomycin/Water 1250 Mg Ivpb) 250 mls @ 125 mls/hr IV X1 ONE Stop: 10/14/25 17:59 Last Admin: 10/14/25 16:35 Dose: Not Given Documented By: ARF Non-Admin Reason: Wrong Time Lactated Ringer's (Lactated Ringers) 500 mls @ 999 mls/hr IV .Q31M ONE Stop: 10/14/25 17:29 Last Admin: 10/14/25 18:17 Dose: Not Given Documented By: VG Non-Admin Reason: Cancelled by Provider Sodium Chloride (Ns) 1,000 mls @ 75 mls/hr IV .[id number] [facility]ADY Stop: 10/15/25 06:18 Last Admin: 10/14/25 18:19 Dose: 75 mls/hr Documented By: VG Sodium Chloride (Ns) 1,000 mls @ 999 mls/hr IV .Q1H1M ONE Stop: 10/15/25 10:51 Last Admin: 10/15/25 10:52 Dose: 999 mls/hr Documented By: DA Sodium Chloride (Ns) 1,000 mls @ 999 mls/hr IV .Q1H1M ONE Stop: 10/15/25 17:04 Last Infusion: 10/15/25 17:15 Dose: Infused Documented By: MARCELA(2) Admin: 10/15/25 16:14 Dose: 999 mls/hr Documented By: MARCELA(2) Lactated Ringer's (Lactated Ringers) 1,000 mls @ 999 mls/hr IV .Q1H1M ONE Stop: 10/15/25 21:00 Last Infusion: 10/15/25 21:06 Dose: Infused Documented By: Admin: 10/15/25 20:05 Dose: 999 mls/hr Documented By: MACEY Lactated Ringer's (Lactated Ringers) 1,000 mls @ 999 mls/hr IV .Q1H1M ONE Stop: 10/15/25 23:45 Last Admin: 10/15/25 22:51 Dose: 999 mls/hr Documented By: MACEY Albumin Human (Albuminex 25% Ivpb) 25 gm in 100 mls @ 100 mls/hr IV QDAY [facility] Stop: 10/19/25 01:20 Albumin Human (Albuminex 25% Ivpb) 25 gm in 100 mls @ 100 mls/hr IV QDAY ONE Stop: 10/16/25 02:22 Last Infusion: 10/16/25 02:38 Dose: Infused Documented By: Admin: 10/16/25 01:31 Dose: 100 mls/hr Documented By: MACEY Insulin Human Regular (Insulin Hum Regular 1 Unit/0.01 Ml (Per Unit)) 5 unit IV X1 ONE Stop: 10/14/25 13:58 Last Admin: 10/14/25 14:20 Dose: 5 unit Documented By: WINSOME Co-signed By: ELHAM Insulin Human Regular (Insulin Hum Regular 1 Unit/0.01 Ml (Per Unit)) 5 unit IV X1 ONE Stop: 10/14/25 16:43 Last Admin: 10/14/25 18:18 Dose: 5 unit Documented By: KATE Co-signed By: ARF Insulin Human Regular (Insulin Hum Regular 1 Unit/0.01 Ml (Per Unit)) 5 unit IV X1 ONE Stop: 10/15/25 11:58 Last Admin: 10/15/25 12:51 Dose: 5 unit Documented By: TIM Co-signed By: DL Midodrine (Midodrine 5 Mg Tablet) 5 mg PO X1 ONE Stop: 10/16/25 01:59 Last Admin: 10/16/25 02:02 Dose: 5 mg Documented By: MACEY Nitroglycerin (Nitroglycerin 0.4 Mg Subl Btl #25) 0.4 mg SL [id number] PRN PRN Reason: CHEST PAIN Stop: 11/13/25 12:50 Pantoprazole Sodium (Pantoprazole Inj 40 Mg Vial) 40 mg IVP QDAY [facility] Stop: 11/13/25 17:14 Last Admin: 10/15/25 10:46 Dose: 40 mg Documented By: Admin: 10/14/25 18:18 Dose: 40 mg Documented By: KATE Patiromer (Patiromer Calcium 8.4 Gm Packet) 8.4 gm PO QDAY [facility]AD[facility] Stop: 11/14/25 12:14 Last Admin: 10/16/25 08:02 Dose: Not Given Documented By: TIM Non-Admin Reason: Per Protocol Comments: POTASSIUM 4.4 Admin: 10/15/25 13:54 Dose: 8.4 gm Documented By: MARCELA(2) Sodium Polystyrene Sulfonate (Sod Polystyrene Sulfon Susp 15 Gm/60 Ml Btl) 30 gm AL X1 ONE Stop: 10/14/25 16:43 Last Admin: 10/14/25 18:20 Dose: Not Given Documented By: KATE Non-Admin Reason: Unable to Swallow Sodium Polystyrene Sulfonate (Sod Polystyrene Sulfon Susp 15 Gm/60 Ml Btl) 30 gm PO X1 ONE Stop: 10/15/25 11:58 Last Admin: 10/15/25 12:44 Dose: 30 gm Documented By: TIM See above Consultations Consultation(s) initiated? (list below): Yes Consultation #1 (Physician, Specialty, Details): See MDM Diagnosis Weakness Differential Diagnosis: acute myocardial infarction, anemia, hypoglycemia, sepsis and dehydration Most likely diagnosis given after review of the tests above:: Sepsis Pneumonia Admission Indicated Admission indicated?: indicated Admission Request Was there a request for admission?: Yes Admission Attestation Admission request attestation: Discussed case with [] from Hospitalist service regarding admission. Discussed patients ED course, exam findings, labs, and radiology results. The Hospitalist [agrees,declines] to accept the patient for admission. Disposition Plan Disposition Plan: Admit Discharge Plan Plan Patient Disposition: Admit Acute Care w/in Hospital Problem List Clinical Impression: Sepsis, Pneumonia
[2025-10-14 13:14] LABS: Basophils # (Auto) 0.1 Thou/mm3 (0.0-0.2); Basophils % (Auto) 0 % (0-2.5); Eosinophils # (Auto) 0.0 Thou/mm3 (0.0-0.5); Eosinophils % (Auto) 0 % (0-10); Hematocrit 44.2 % (41.0-53.0); Hemoglobin 13.7 g/dL (13.5-16.0); Immature Granulocytes Auto 0.24 Thou/mm3 (0.00-0.00); Lymphocytes # (Auto) 0.5 Thou/mm3 (1.0-4.8); Lymphocytes % (Auto) 2 % (10-50); Mean Corpuscular HGB Conc 31.0 g/dl (31.0-37.0); Mean Corpuscular Hemoglobin 26.8 pg (25.0-35.0); Mean Corpuscular Volume 87 fL (80-100); Monocytes # (Auto) 0.7 Thou/mm3 (0.0-0.8); Monocytes % (Auto) 3 % (0-12); Neutrophils # (Auto) 23.5 Thou/mm3 (1.8-7.7); Neutrophils % (Auto) 94 % (37-80); Nucleated Red Blood Cell # 0.00 Thou/mm3 (0.00-0.00); Nucleated Red Blood Cell % 0 /100 WBC (0); Platelet Count 553 Thou/mm3 (140-440); RDW Standard Deviation 51.8 fL (35.1-43.9); Red Blood Count 5.11 Miln/mm3 (4.50-5.90); White Blood Count 25.0 Thou/mm3 (3.8-10.6)
[2025-10-14] MEDS: ACETAMINOPHEN IVPB 1,000 MG/100 ML VIAL 250 MG IV (13:15)
[2025-10-14] MEDS: SODIUM CHLORIDE 0.9% 1000 ML 1,000 ML 999 ML IV (13:15)
[2025-10-14] MEDS: PIPER/TAZO 3.375 GM PREMIX 3.375 GM/50 ML BAG IV (13:15)
[2025-10-14 13:21] LABS: Lactate (Lactic Acid) 4.3 mMol/L (0.4-2.0)
[2025-10-14 13:30] LABS: INR 1.2 (0.9-1.3); Partial Thromboplastin Time 28.6 Seconds (22.0-36.0); Prothrombin Time 13.0 Seconds (9.0-12.2)
[2025-10-14 13:52] LABS: Alanine Aminotransferase 38 U/L (10-49); Albumin, Serum 3.2 gm/dL (3.4-4.8); Albumin/Globulin Ratio 1.0 (1.2-2.2); Alkaline Phosphatase 726 U/L (46-116); Anion Gap 11 (7-16); Aspartate Amino Transferase 72 U/L (0-34); B-Type Natriuretic Peptide > 3280 pg/mL (0-100); BUN/Creatinine Ratio 23 Ratio (12-20); Bilirubin,Total 0.5 mg/dL (0.3-1.2); Blood Urea Nitrogen 67 mg/dL (9-23); Calcium 11.0 mg/dL (8.3-10.6); Calcium (Corrected) 11.6 mg/dL (8.5-10.1); Carbon Dioxide 22.1 mMol/L (20.0-31.0); Chloride 98 mMol/L (98-107); Creatinine (Component) 2.9 mg/dL (0.6-1.3); Estimated Creatinine Clearance 20.3 mL/min (>60); Globulin 3.2 gm/dL (2.3-3.5); Glucose 121 mg/dL (74-106); Lipase 18 U/L (12-53); Magnesium 2.4 mg/dL (1.6-2.6); Osmolality,Calculated 283 (275-295); Procalcitonin 10.36 ng/ml (0.0-0.49); Sodium 131 mMol/L (136-145); Total Protein 6.4 gm/dL (5.7-8.2); Troponin I < 0.020 ng/mL (0.0-0.045); eGFR 24 See Note
[2025-10-14 13:55] LABS: Potassium 6.5 mMol/L (3.4-5.1)
[2025-10-14 14:10] LABS: Collection Type, Urine Catheter; Collection Type, Urine Clean Catch; Squamous Epithelial Cell,Urine 0 /hpf (0-5)
[2025-10-14] MEDS: DEXTROSE 50%-WATER INJ 50 ML SYRINGE IVP (14:19)
[2025-10-14] MEDS: INSULIN HUM REGULAR 1 UNIT/0.01 ML (PER UNIT) 5 UNIT IV ×2 (14:20→18:18)
[2025-10-14] MEDS: CALCIUM GLUCONATE 10% INJ 1 GM/10 ML VIAL IV (14:20)
[2025-10-14] MEDS: VANCOMYCIN/NS 1 GM IVPB 200 ML IV (14:21)
[2025-10-14 14:27] LABS: Amorphous Crystals,Urine Present (Absent); Bacteria,Urine Rare; Bilirubin,Urine Negative (Negative); Blood,Urine 1+ (Negative); Color,Urine Yellow (Lt Yel-Yel); Glucose, Urine Negative (Negative); Ketones,Urine Negative (Negative); Leukocyte Esterase,Urine Positive (Negative); Nitrite,Urine Negative (Negative); PH,Urine 6.0 (5.0-7.0); Protein,Urine 2+ (Neg - Trace); RBC,Urine 4 /hpf (0-3); Specific Gravity,Urine 1.020 (1.001-1.035); Urobilinogen,Urine Negative mg/dL (0.0-1.0); WBC,Urine 21 /hpf (0-5)
[2025-10-14 14:29] LABS: Amorphous Crystals,Urine Present (Absent); Bacteria,Urine Rare; Bilirubin,Urine Negative (Negative); Blood,Urine 2+ (Negative); Budding Yeast,Urine Present; Clarity,Urine Turbid (Clear/Hazy); Color,Urine Yellow (Lt Yel-Yel); Glucose, Urine Negative (Negative); Ketones,Urine Negative (Negative); Leukocyte Esterase,Urine Positive (Negative); Nitrite,Urine Negative (Negative); PH,Urine 6.0 (5.0-7.0); Protein,Urine 2+ (Neg - Trace); RBC,Urine 54 /hpf (0-3); Specific Gravity,Urine 1.026 (1.001-1.035); Urobilinogen,Urine 2.0 mg/dL (0.0-1.0); WBC,Urine 214 /hpf (0-5)
[2025-10-14 14:31] LABS: Clarity,Urine Hazy (Clear/Hazy)
--- NOTE | 2025-10-14 14:50 | PC.NURSE ---
PT TAKEN TO DIALYSIS
--- NOTE | 2025-10-14 15:10 | ESCONSULT_ITS ---
HPI Data of Consult Consult date: 10/14/25 Consult Narrative Reason for consult: CORINA, hyperkalemia --need for emergent dialysis History of present illness: Patient is a 64 year old male with PMH of invasive urothelial carcinoma (on chemotherapy) with bilateral nephrostomy tubes for hydronephrosis (recently replaced 09/24/25) who presents to ED for generalized weakness and lethargy. He is a long time patient of Dr. Santana, was previously on HD twice a week, last dialysis session August 21 2025 but discontinued after nephrostomy tubes placed and renal function had stabilized. Patient lost for follow-up. His dialysis catheter still on the right chest. Never removed. Never went back to renal clinic In ED, patient is tachycardic with heart rate in 118 and febrile with temperature 104.9 saturating 94% on 4 L oxygen. WBC elevated at 25, platelets 553,000. Sodium 131, potassium 6.5, chloride 98, bicarb 22.1. BUN 67, creatinine 2.9, GFR 24. Lactic 4.3. Procal 10.36. Calcium 11.6. BNP >3280. UA from suprapubic catheter is turbid, pH 6.0, 2+ protein, 2+ blood, positive leukocyte esterase, RBC 54, WBC 214, yeast and amorphous crystals. UA from clean-catch similar but less WBC and RBC. EKG shows sinus tachycardia with heart rate at [address] abnormalities noted. Chest x-ray shows significant bilateral pneumonia. Nephrology consulted for hyperkalemia requiring emergent dialysis. 10/14/25: Patient seen and assessed for dialysis. Unable to dialyze as Right subclavian port still clogged despite alteplase. Recommend pharmacological management of hyperkalemia for now. Keep NPO, plan for new catheter insertion tomorrow if hyperkalemia persists cc:: cc: Review of Systems Review of Systems ROS Unobtainable: unobtainable due to mental status and unobtainable due to medical condition Exam Vital Signs Temp Pulse Resp BP Pulse Ox O2 Del Method O2 Flow Rate 98.2 F 103 H 24 H 108/68 97 Nasal Cannula 4 10/14/25 14:29 10/14/25 14:44 10/14/25 14:44 10/14/25 14:44 10/14/25 14:44 10/14/25 14:44 10/14/25 14:44 Narrative Exam Physical Exam General: Sick looking. Lost significant amount of weight cachetic, ill appearing. On 4L NC. HEENT: Normocephalic, atraumatic, mucous membranes dry. Chest: Right subclavian dialysis port still in place. Heart: Regular rate and rhythm, normal S1 and S2, no murmurs appreciated. Lungs: Clear to auscultation with no wheezing or crackles. Abdomen: Soft, nondistended, nontender, positive bowel sounds. No guarding or rebound tenderness. : Araiza catheter in place. Neurologic: Barely arousable Extremities: No edema. Skin: No rash or ecchymoses. Scattered petechiae on legs. Results Labs 10/14/25 15:54 10/14/25 15:54 Labs: Short CBC 10/14/25 Range/Units 13:05 WBC 25.0 H (3.8-10.6) Thou/mm3 Hgb 13.7 (13.5-16.0) g/dL Hct 44.2 (41.0-53.0) % Plt Count 553 H D (140-440) Thou/mm3 BMP 10/14/25 13:05 Sodium 131 L Potassium 6.5 H* Chloride 98 Carbon Dioxide 22.1 BUN 67 H Creatinine 2.9 H Glucose 121 H Calcium 11.0 H Cardiac Enzymes 10/14/25 Range/Units 13:05 Troponin I < 0.020 (0.0-0.045) ng/mL Liver Function 10/14/25 Range/Units 13:05 Total Bilirubin 0.5 (0.3-1.2) mg/dL AST 72 H (0-34) U/L ALT 38 (10-49) U/L Alkaline Phosphatase 726 H (46-116) U/L Albumin 3.2 L (3.4-4.8) gm/dL Urine 10/14/25 10/14/25 10/14/25 Range/Units 13:40 13:40 13:40 Urine Color Yellow Yellow (Lt Yel-Yel) Urine Clarity Hazy Turbid A (Clear/Hazy) Urine pH 6.0 (5.0-7.0) Ur Specific [place] (1.001-1.035) Urine Protein (Neg - Trace) Urine Glucose (UA) (Negative) 10/14/25 10/14/25 10/14/25 Range/Units 13:40 13:40 13:40 Urine Color (Lt Yel-Yel) Urine Clarity (Clear/Hazy) Urine pH 6.0 (5.0-7.0) Ur Specific [place] 1.020 1.026 (1.001-1.035) Urine Protein 2+ A 2+ A (Neg - Trace) Urine Glucose (UA) Negative (Negative) 10/14/25 Range/Units 13:40 Urine Color (Lt Yel-Yel) Urine Clarity (Clear/Hazy) Urine pH (5.0-7.0) Ur Specific [place] (1.001-1.035) Urine Protein (Neg - Trace) Urine Glucose (UA) Negative (Negative) Quality Measures Quality Measures sepsis Current suspected stage: sepsis Possible source: pulmonary Blood cultures ordered: completed in ED Antibiotic ordered: Yes Medications Home Medications and Allergies Allergies Allergy/AdvReac Type Severity Reaction Status Date / Time No Known Allergies Allergy Verified 09/23/25 17:07 Visit Medications Albumin Human (Albuminex 25% Ivpb) 25 gm in 100 mls @ 0 mls/hr IV Q30MIN PRN PRN Reason: To maintain SBP>90 Sodium Chloride (Ns) 1,000 mls @ 333 mls/hr IV .Q3H1M ONE Stop: 10/14/25 18:00 Discontinued Medications Calcium Gluconate (Calcium Gluconate 10% Inj 1 Gm/10 Ml Vial) 1 gm IV X1 ONE Stop: 10/14/25 13:56 Last Admin: 10/14/25 14:20 Dose: 1 gm Dextrose (Dextrose 50%-Water Inj 50 Ml Syringe) 50 ml IVP X1 ONE Stop: 10/14/25 13:58 Last Admin: 10/14/25 14:19 Dose: 50 ml Sodium Chloride (Ns) 1,000 mls @ 999 mls/hr IV .Q1H1M ONE Stop: 10/14/25 13:55 Last Admin: 10/14/25 13:15 Dose: 999 mls/hr Vancomycin/Sodium Chloride (Vancomycin/Ns 1 Gm Ivpb) 200 mls @ 120 mls/hr IV X1 ONE Stop: 10/14/25 14:34 Last Admin: 10/14/25 14:21 Dose: 120 mls/hr Piperacillin/Tazobactam/Dextrose (Zosyn) 3.375 gm in 50 mls @ 100 mls/hr IV X1 ONE; Protocol Stop: 10/14/25 13:24 Last Infusion: 10/14/25 14:11 Dose: Infused Acetaminophen (Ofirmev Inj) 1,000 mg in 100 mls @ 250 mls/hr IV X1 ONE Stop: 10/14/25 13:20 Last Infusion: 10/14/25 14:11 Dose: Infused Insulin Human Regular (Insulin Hum Regular 1 Unit/0.01 Ml (Per Unit)) 5 unit IV X1 ONE Stop: 10/14/25 13:58 Last Admin: 10/14/25 14:20 Dose: 5 unit Nitroglycerin (Nitroglycerin 0.4 Mg Subl Btl #25) 0.4 mg SL [id number] PRN PRN Reason: CHEST PAIN Stop: 11/13/25 12:50 Assessment & Plan Plan Patient is a 64 year old male with PMH of invasive urothelial carcinoma (on chemotherapy) with bilateral nephrostomy tubes for hydronephrosis (recently replaced 09/24/25) who presents to ED for generalized weakness and lethargy. Nephrology consulted for hyperkalemia requiring emergent dialysis. #Hyperkalemia #Hx CORINA on HD T/Sat (last session July 2025)-did recover #Bilateral nephrostomy tubes (replaced 08/2025), suprapubic catheter for bladder cancer - Presenting with generalized weakness. - Follows Dr. Santana, previously on dialysis T/Sat but discontinued as renal function recovered/stabilized. - Potassium 6.5 - S/p calcium gluconate and insulin 5 with dextrose Plan: - Will re-insert HD cath tomorrow morning as current right subclavian port still not functioning s/p alteplase. Keep NPO--if hyperkalemia persists. Continue with fluids. - Pharmacological management for hyperkalemia per primary team - Strict INOs - Avoid nephrotoxic agents - Renally dose medications #Sepsis 2/2 complicated UTI vs dialysis catheter related sepsis #Urothelial carcinoma with bilateral hydronephrosis (on chemo) #Anemia of chronic disease #Choreiform vs diskinetic like movements - Management per primary team Thank you for your consultation, please do not hesitate to reach out if you have any question or concern Patient plan of care was discussed with the attending physician, Dr. Santana. Babs Matamoros DO, PGY-1 Attending Provider Attestation/Addendum Patient seen and examined with resident physician Dr. Matamoros. Note reviewed, agree with findings and recommendations. Emergency dialysis ordered for hyperkalemia. However dialysis catheter despite alteplase was nonfunctioning. Could not get a temporary catheter through IR due to scheduling. In the interim spoke to primary team to continue with medical management. No EKG changes. Continue with IV fluids. Despite medical management if hyperkalemia persists will plan for dialysis tomorrow. Hopefully he will continue to improve with medical management and IV fluids. Regarding his sepsis he needs significant fluid resuscitation, broad-spectrum antibiotics. Thank you Lachelle for allowing me to participate in the care of Mr. Meade
--- NOTE | 2025-10-14 15:11 | XR_ITS ---
Examination: CT brain head without contrast. 2-D sagittal coronal reconstructions Date and time of exam: October 14, 2025, 1844 hours, comparison May 16, 2025 INDICATIONS: Altered mental status today CTDI: vol (mGy): 48 DLP: (mGycm): 1043 Technique: Multiple CT axial sections of the brain have been obtained, 5 mm slice thickness. Contrast has not been administered. 2-D sagittal, coronal reconstructions have been obtained Low dose protocols were performed. One or more of the following dose reduction techniques were used; automated exposure control, adjustment of the mA and/or KV according to patient size, use of iterative reconstruction technique. Findings: Again noted mild to moderate ventricular enlargement. Intra-axial or extra-axial hemorrhage density is not seen. No mass effect or midline shift Basal cisterns are not remarkable. Fourth ventricle is midline. Cranial vault intact. Impression: Negative for acute hemorrhage, mass effect or midline shift Advise clinical correlation and follow-up accordingly
[2025-10-14] MEDS: CATHFLO (ALTEPLASE) INJ 4 MG, Sterile Water 4.4 ML INDWELLCAT (15:26)
--- NOTE | 2025-10-14 15:26 | ESHP_ITS ---
<Statement entered by Lachelle Josue MD - 10/24/25 08:26> I reviewed above note and agree with findings and plans. I have also personally examined the patient with medicine team and went over assessment and plan with medical team including undergraduate internship and resident physician. <Statement entered by Uziel Hudson MD - 10/15/25 13:33> Patient was examined and case was reviewed with team including attending physician. Note reviewed, I agree with most of its contents and agree with the patient's care. Uziel Hudson MD PGY-2 Documentation for date of: 10/14/25 HPI History of Present Illness Chief complaint: Generalized Weakness History of present illness: Mr. Meade is a 64M with history of invasive urothelial carcinoma, bilateral hydronephrosis with bilateral nephrostomy tube and chronic viveros catheter that drains urine, CKD IIIb, and stable choreform movements presents for generalized weakness. Per at bedside, patient fell 2 days ago and hit his head, and since then patient became globally weak and lethargic. She also noted that the patient was not able to complete his PET scan for his bladder cancer, and is not on any chemoradiation. Per EMS, patient was hypotensive and hot to touch on scene. Upon chart review, he was admitted recently on 09/24/25 UTI and received antibiotics. Patient follows Dr. Santana outpatient. On exam in the ED, patient is GCS 10 (E3V2M5), a/o x 1. Petechiae noted to LLE. Abrasion noted to left anterior chest wall. Nephrology was consulted, recommended no emergency urology transfer. Given his potassium of 6.5, he was taken emergent for dialysis, but unsuccessful since his TDC was clotted off. IR vas cath was ordered, but given his hemodynamic instability, an attempt was not advisable. Hyperkalemic cocktail given. He was admitted to telemetry for urosepsis. ED Course In the ED, Temp 104.9F rectal. HR 118. BP 111/69. 94% on 4L. WBC 25.0 with neutrophil predominance (94%), Hgb 13.7, Na 131, K 6.5, Bicarb 22.1, anion gap 11, BUN 67, [employer] 2.9, Glucose 121, Lactate 4.3. Alk Phos 726. BNP > 3280. Procalcitonin 10.36. UA notable for RBC 54, WBC 214, +Bacteria, +Yeast. ROS * Constitutional: +fever/chills, altered, lethargic * GI: Denies nausea, vomiting. * CV: Denies chest pain or palpitations. +abrasion to anterior left chest wall. * Resp: Denies shortness of breathe * : Chronic viveros, bilateral nephrostomy tube, draining urine. * Neuro: Unable to assess. Past Medical History * Urothelial carcinoma. * Bilateral hydronephrosis * CKD IIIb * Stable choreform movements Social History * Lives at home, independent baseline. * Denies alcohol, illicit drug use. 30-pack years smoking history Surgical History * Right meniscus repair * B/L nephrostomy tube Allergies * NKDA Home Meds * Carbamazepine, midodrine Exam Vital Signs Temp Pulse Resp BP Pulse Ox O2 Del Method O2 Flow Rate 98.2 F 103 H 24 H 108/68 97 Nasal Cannula 4 10/14/25 14:29 10/14/25 14:44 10/14/25 14:44 10/14/25 14:44 10/14/25 14:44 10/14/25 14:44 10/14/25 14:44 Narrative Exam General: Lethargic, altered. GCS 10 (E3V2M5). Cachexia. HEENT: Normocephalic, atraumatic, mucous membranes dry. Heart: Tachycardic. No M/R/G Lungs: Crackles to RLL. No increase WOB. Abdomen: Soft, nondistended, nontender. No guarding or rebound tenderness. Neurologic: Weak, unable to follow command. 1/5 strength in UE and LE. Unable to assess CN function. Extremities: No pitting edema in lower extremities. Loss of muscle tone. Skin: Petechiae to LLE. Bilateral LE scartch suh. Abrasions to left anterior chest wall. Results: Labs 10/14/25 15:54 10/14/25 15:54 Labs: Short CBC 10/14/25 Range/Units 13:05 WBC 25.0 H (3.8-10.6) Thou/mm3 Hgb 13.7 (13.5-16.0) g/dL Hct 44.2 (41.0-53.0) % Plt Count 553 H D (140-440) Thou/mm3 BMP 12/15/25 13:05 Sodium 131 L Potassium 6.5 H* Chloride 98 Carbon Dioxide 22.1 BUN 67 H Creatinine 2.9 H Glucose 121 H Calcium 11.0 H Cardiac Enzymes 10/14/25 Range/Units 13:05 Troponin I < 0.020 (0.0-0.045) ng/mL Liver Function 10/14/25 Range/Units 13:05 Total Bilirubin 0.5 (0.3-1.2) mg/dL AST 72 H (0-34) U/L ALT 38 (10-49) U/L Alkaline Phosphatase 726 H (46-116) U/L Albumin 3.2 L (3.4-4.8) gm/dL Urine 10/14/25 10/14/25 10/14/25 Range/Units 13:40 13:40 13:40 Urine Color Yellow Yellow (Lt Yel-Yel) Urine Clarity Hazy Turbid A (Clear/Hazy) Urine pH 6.0 (5.0-7.0) Ur Specific [place] (1.001-1.035) Urine Protein (Neg - Trace) Urine Glucose (UA) (Negative) 10/14/25 10/14/25 10/14/25 Range/Units 13:40 13:40 13:40 Urine Color (Lt Yel-Yel) Urine Clarity (Clear/Hazy) Urine pH 6.0 (5.0-7.0) Ur Specific [place] 1.020 1.026 (1.001-1.035) Urine Protein 2+ A 2+ A (Neg - Trace) Urine Glucose (UA) Negative (Negative) 10/14/25 Range/Units 13:40 Urine Color (Lt Yel-Yel) Urine Clarity (Clear/Hazy) Urine pH (5.0-7.0) Ur Specific [place] (1.001-1.035) Urine Protein (Neg - Trace) Urine Glucose (UA) Negative (Negative) Quality Measures Quality Measures sepsis Current suspected stage: sepsis Possible source: pulmonary Blood cultures ordered: completed in ED Antibiotic ordered: Yes Medications Home Medications and Allergies Allergies Allergy/AdvReac Type Severity Reaction Status Date / Time No Known Allergies Allergy Verified 09/23/25 17:07 Visit Medications Acetaminophen (Acetaminophen 325 Mg Tablet) 650 mg PO Q6H PRN PRN Reason: Fever >101.5 Stop: 11/13/25 15:16 Albumin Human (Albuminex 25% Ivpb) 25 gm in 100 mls @ 0 mls/hr IV Q30MIN PRN PRN Reason: To maintain SBP>90 Sodium Chloride (Ns) 1,000 mls @ 333 mls/hr IV .Q3H1M ONE Stop: 10/14/25 18:00 Discontinued Medications Calcium Gluconate (Calcium Gluconate 10% Inj 1 Gm/10 Ml Vial) 1 gm IV X1 ONE Stop: 10/14/25 13:56 Last Admin: 10/14/25 14:20 Dose: 1 gm Alteplase, Recombinant 4 mg/ (Sterile Water 4.4 ml) 0 mg INDWELLCAT X1 ONE Stop: 10/14/25 15:11 Dextrose (Dextrose 50%-Water Inj 50 Ml Syringe) 50 ml IVP X1 ONE Stop: 10/14/25 13:58 Last Admin: 10/14/25 14:19 Dose: 50 ml Sodium Chloride (Ns) 1,000 mls @ 999 mls/hr IV .Q1H1M ONE Stop: 10/14/25 13:55 Last Admin: 10/14/25 13:15 Dose: 999 mls/hr Vancomycin/Sodium Chloride (Vancomycin/Ns 1 Gm Ivpb) 200 mls @ 120 mls/hr IV X1 ONE Stop: 10/14/25 14:34 Last Admin: 10/14/25 14:21 Dose: 120 mls/hr Piperacillin/Tazobactam/Dextrose (Zosyn) 3.375 gm in 50 mls @ 100 mls/hr IV X1 ONE; Protocol Stop: 10/14/25 13:24 Last Infusion: 10/14/25 14:11 Dose: Infused Acetaminophen (Ofirmev Inj) 1,000 mg in 100 mls @ 250 mls/hr IV X1 ONE Stop: 10/14/25 13:20 Last Infusion: 10/14/25 14:11 Dose: Infused Insulin Human Regular (Insulin Hum Regular 1 Unit/0.01 Ml (Per Unit)) 5 unit IV X1 ONE Stop: 10/14/25 13:58 Last Admin: 10/14/25 14:20 Dose: 5 unit Nitroglycerin (Nitroglycerin 0.4 Mg Subl Btl #25) 0.4 mg SL [id number] PRN PRN Reason: CHEST PAIN Stop: 11/13/25 12:50 Assessment & Plan Plan Mr. Meade is a 64M with history of invasive urothelial carcinoma, bilateral hydronephrosis with bilateral nephrostomy tube and chronic viveros catheter, CKD IIIb, and stable choreform movements presents for generalized weakness. He was admitted for urosepsis. #Urosepsis #Lactic acidosis #Leukocytosis #Fever #Hypotension #Pneumonia Recently admitted on 09/24/25 for UTI. Received antibiotics. Received 1L NaCl 0.9% in the ED. Zosyn + Vanco x 1. CXR 10/14/25 showed diffuse left lung pneumonia and right base pneumonia. - Continue empiric Zosyn and vanco - Pending Ucx - Pending Bcx - NaCl 0.9% @ 75ml/hr x 1 (10/14/25) - Resume home midodrine after passing swallow evall. #Generalized weakness #Acute encephlopathy #Choreform movements A/0 x 1, GCS 10 in ED. Likely due to hyperkalemia and sepsis. Fell 2 day prior to admission, no LOC, but did land on his head. Choreform movements at baseline. - Pending CT head result - PT consult - Speech consult for official swallow eval. - Resume home carbamazepine after passing swallow eval. #CORINA on CKD IIIb #Hyperkalemia #Hyponatremia #Elevated Alk Phos #Hypercalcemia TDC occluded despite ateplase flush. Medical management for now. - IR vasc cath planned for tmr - Nephrology consult, appreciate recs - hyperK cocktail in ED x 1 - hyperK cocktail x 1 (10/14/25) - Strict I/Os - monitor urine output - daily labs, monitor chemistry - renal dose med, avoid nephrotoxin - no recent contrast or offending mediations #Urothelial carcinoma #Bilateral hydronephrosis S/p bilateral nephrostomy tube #Chronic indwelling catheter - chronic medical problem - continue to monitor for urine out in viveros bags and nephrostomy bag. - outpatient follow up Health maintenance Dispo: Pending resolution of sepsis DVT prophylaxis: Hold until CT head GI prophylaxis: Protonix 40mg QD Antibiotics: Zosyn + Vanco Bowel Regimen: N/A Diet: NPO, may resume after IR vasc cath Lines: Peripheral IV. Chronic indwelling cath. Bilateral nephrostomy tube. Code status: Full code Case discussed with my senior resident Dr. Jenkins Case discussed with my attending Dr. Joselo Kirk, PGY 1
--- NOTE | 2025-10-14 16:06 | PC.NURSE ---
Catheter not functioning, Venous port clotted. Blood returned to pt via the arterial port.
[2025-10-14 16:07] LABS: Lactate (Lactic Acid) 4.3 mMol/L (0.4-2.0)
[2025-10-14 16:09] LABS: Reflex Lactate? Y
[2025-10-14 16:10] LABS: Basophils # (Auto) 0.0 Thou/mm3 (0.0-0.2); Basophils % (Auto) 0 % (0-2.5); Eosinophils # (Auto) 0.0 Thou/mm3 (0.0-0.5); Eosinophils % (Auto) 0 % (0-10); Hematocrit 37.5 % (41.0-53.0); Hemoglobin 11.9 g/dL (13.5-16.0); Immature Granulocytes Auto 0.46 Thou/mm3 (0.00-0.00); Lymphocytes # (Auto) 0.6 Thou/mm3 (1.0-4.8); Lymphocytes % (Auto) 2 % (10-50); Mean Corpuscular HGB Conc 31.7 g/dl (31.0-37.0); Mean Corpuscular Hemoglobin 27.4 pg (25.0-35.0); Mean Corpuscular Volume 86 fL (80-100); Monocytes # (Auto) 1.2 Thou/mm3 (0.0-0.8); Monocytes % (Auto) 4 % (0-12); Neutrophils # (Auto) 25.0 Thou/mm3 (1.8-7.7); Neutrophils % (Auto) 92 % (37-80); Nucleated Red Blood Cell # 0.00 Thou/mm3 (0.00-0.00); Nucleated Red Blood Cell % 0 /100 WBC (0); Platelet Count 423 Thou/mm3 (140-440); RDW Standard Deviation 52.2 fL (35.1-43.9); Red Blood Count 4.35 Miln/mm3 (4.50-5.90); White Blood Count 27.3 Thou/mm3 (3.8-10.6)
[2025-10-14 16:30] LABS: Alanine Aminotransferase 31 U/L (10-49); Albumin, Serum 2.9 gm/dL (3.4-4.8); Albumin/Globulin Ratio 1.0 (1.2-2.2); Alkaline Phosphatase 564 U/L (46-116); Anion Gap 10 (7-16); Aspartate Amino Transferase 64 U/L (0-34); BUN/Creatinine Ratio 21 Ratio (12-20); Bilirubin,Total 0.5 mg/dL (0.3-1.2); Blood Urea Nitrogen 56 mg/dL (9-23); Calcium 10.6 mg/dL (8.3-10.6); Calcium (Corrected) 11.5 mg/dL (8.5-10.1); Carbon Dioxide 18.6 mMol/L (20.0-31.0); Chloride 102 mMol/L (98-107); Creatinine (Component) 2.7 mg/dL (0.6-1.3); Estimated Creatinine Clearance 21.8 mL/min (>60); Globulin 2.9 gm/dL (2.3-3.5); Glucose 120 mg/dL (74-106); Magnesium 2.2 mg/dL (1.6-2.6); Osmolality,Calculated 279 (275-295); Phosphorous 3.5 mg/dL (2.4-5.1); Potassium 5.2 mMol/L (3.4-5.1); Sodium 131 mMol/L (136-145); Total Protein 5.8 gm/dL (5.7-8.2); eGFR 26 See Note
--- NOTE | 2025-10-14 16:37 | PC.NURSE ---
PT BROUGHT BACK FROM [facility] - THEY WERE UNAVBLE TO ACCESS HIS VAS CATH D/T CLOTS. PT WILL GET VAS CATH TOMORROW - PLACED BACK INTO ED 3
[2025-10-14 16:38] LABS: Allen Test Performed/OK; Base Excess -4 (-3-3); HCO3 20 mEq/L (20-26); Inspired O2, VO2 Liters 3 L/min; Inspired Oxygen, FIO2 97 %; O2 Saturation 99 % (91-98); PCO2 32 mmHg (32.0-48.0); PO2 111 mmHg (83-108); Puncture Site Right Radial; pH, Arterial 7.41 (7.35-7.45)
[2025-10-14] MEDS: DEXTROSE 50%-WATER INJ 50 ML SYRINGE 25 ML IV (18:19)
[2025-10-14] MEDS: SODIUM CHLORIDE 0.9% 1000 ML 1,000 ML 75 ML IV (18:19)
[2025-10-14] MEDS: CALCIUM CHLORIDE 10% INJ 10 ML SYRG IV (18:20)
[2025-10-14 19:04] LABS: Reflex Lactate? Y
[2025-10-14 20:38] LABS: Lactate (Lactic Acid) 3.1 mMol/L (0.4-2.0)
[2025-10-14 22:01] LABS: Albumin, Serum 2.9 gm/dL (3.4-4.8); Anion Gap 11 (7-16); BUN/Creatinine Ratio 23 Ratio (12-20); Blood Urea Nitrogen 61 mg/dL (9-23); Calcium 11.8 mg/dL (8.3-10.6); Calcium (Corrected) 12.7 mg/dL (8.5-10.1); Carbon Dioxide 18.9 mMol/L (20.0-31.0); Chloride 102 mMol/L (98-107); Creatinine (Component) 2.6 mg/dL (0.6-1.3); Estimated Creatinine Clearance 22.7 mL/min (>60); Glucose 90 mg/dL (74-106); Osmolality,Calculated 281 (275-295); Phosphorous 3.9 mg/dL (2.4-5.1); Potassium 5.3 mMol/L (3.4-5.1); Sodium 132 mMol/L (136-145); eGFR 27 See Note
[2025-10-14] MEDS: PIPER/TAZO INJ 4.5 GM in SODIUM CHLORIDE 0.9% (POP) 100 ML IV (23:01)
[2025-10-14 23:34] LABS: Reflex Lactate? Y
[2025-10-15] VITALS (12 sets, daily range): BP systolic 88–102; BP diastolic 53–71; PULSE 83–104; RESP 12–24; TEMP 35.9–36.7; O2SAT 98–100; BMI 19.3
[2025-10-15 00:05] LABS: Lactic Acid, 3 HR 2.7 mMol/L (0.4-2.0)
[2025-10-15 02:42] LABS: Basophils # (Auto) 0.0 Thou/mm3 (0.0-0.2); Basophils % (Auto) 0 % (0-2.5); Eosinophils # (Auto) 0.0 Thou/mm3 (0.0-0.5); Eosinophils % (Auto) 0 % (0-10); Hematocrit 38.4 % (41.0-53.0); Hemoglobin 12.1 g/dL (13.5-16.0); Immature Granulocytes Auto 0.37 Thou/mm3 (0.00-0.00); Lymphocytes # (Auto) 0.9 Thou/mm3 (1.0-4.8); Lymphocytes % (Auto) 3 % (10-50); Mean Corpuscular HGB Conc 31.5 g/dl (31.0-37.0); Mean Corpuscular Hemoglobin 27.3 pg (25.0-35.0); Mean Corpuscular Volume 87 fL (80-100); Monocytes # (Auto) 1.4 Thou/mm3 (0.0-0.8); Monocytes % (Auto) 5 % (0-12); Neutrophils # (Auto) 26.0 Thou/mm3 (1.8-7.7); Neutrophils % (Auto) 91 % (37-80); Nucleated Red Blood Cell # 0.00 Thou/mm3 (0.00-0.00); Nucleated Red Blood Cell % 0 /100 WBC (0); Platelet Count 403 Thou/mm3 (140-440); RDW Standard Deviation 52.7 fL (35.1-43.9); Red Blood Count 4.44 Miln/mm3 (4.50-5.90); White Blood Count 28.7 Thou/mm3 (3.8-10.6)
[2025-10-15 02:43] LABS: Lactate (Lactic Acid) 2.6 mMol/L (0.4-2.0)
[2025-10-15 03:11] LABS: Alanine Aminotransferase 34 U/L (10-49); Albumin, Serum 2.9 gm/dL (3.4-4.8); Albumin/Globulin Ratio 1.0 (1.2-2.2); Alkaline Phosphatase 592 U/L (46-116); Anion Gap 9 (7-16); Aspartate Amino Transferase 165 U/L (0-34); BUN/Creatinine Ratio 23 Ratio (12-20); Bilirubin,Total 0.6 mg/dL (0.3-1.2); Blood Urea Nitrogen 61 mg/dL (9-23); Calcium 11.1 mg/dL (8.3-10.6); Calcium (Corrected) 12.0 mg/dL (8.5-10.1); Carbon Dioxide 17.8 mMol/L (20.0-31.0); Cardiac Risk Estimate 7.1 RATIO (4.0-6.7); Chloride 105 mMol/L (98-107); Cholesterol 99 mg/dL (132-200); Creatinine (Component) 2.6 mg/dL (0.6-1.3); Estimated Creatinine Clearance 22.7 mL/min (>60); Globulin 3.0 gm/dL (2.3-3.5); Glucose 100 mg/dL (74-106); HDL Cholesterol 14 mg/dL (40-60); LDL Cholesterol,Calculated 56 mg/dL (0-130); Magnesium 2.3 mg/dL (1.6-2.6); Osmolality,Calculated 281 (275-295); Phosphorous 4.0 mg/dL (2.4-5.1); Potassium 5.2 mMol/L (3.4-5.1); Sodium 132 mMol/L (136-145); Total Protein 5.9 gm/dL (5.7-8.2); Triglycerides 143 mg/dL (30-150); eGFR 27 See Note
[2025-10-15] MEDS: PIPER/TAZO INJ 4.5 GM in SODIUM CHLORIDE 0.9% (POP) 100 ML IV (05:22)
[2025-10-15 05:38] LABS: Reflex Lactate? Y
--- NOTE | 2025-10-15 06:16 | PC.NURSE ---
PT'S JENNIFER UPDATED WITH PLAN OF CARE AND VERBALIZED UNDERSTANDING. SHE WILL BRING IN PT'S HOME MEDS.
[2025-10-15 07:18] LABS: Lactic Acid, 3 HR 2.7 mMol/L (0.4-2.0)
--- NOTE | 2025-10-15 07:52 | XR_ITS ---
EXAMINATION: Venous access removal permanent dialysis catheter Fluoroscopy AP chest 2 views Date and time: October 15, 2025, 0937 hours INDICATIONS: No longer needed for dialysis TECHNIQUE AND FINDINGS: Informed consent provided. Timeout performed. Skin prepped over the entrance site of the tunneled right subclavian dialysis catheter Sterile drape applied, hand hygiene maximum sterile technique 1% lidocaine administered for local anesthesia Careful dissection around the permanent tunneled dialysis catheter was successful removal Estimated blood loss 3 cc Chest film May completion procedure no longer demonstrates a dialysis catheter Fluoroscopy 0.01-minute radiation dose 0.31 mGy 2 spot fluoroscopic chest films IMPRESSION: Successful venous access removal permanent tunneled dialysis catheter
--- NOTE | 2025-10-15 08:40 | PD.RESPRO ---
Documentation for date of: 10/15/25 Subjective Subjective Interval history: History of present illness: Patient is a 64 year old male with PMH of invasive urothelial carcinoma (on chemotherapy) with bilateral nephrostomy tubes for hydronephrosis (recently replaced 09/24/25) who presents to ED for generalized weakness and lethargy. He is a long time patient of Dr. Santana, was previously on HD twice a week, last dialysis session August 21 2025 but discontinued after nephrostomy tubes placed and renal function had stabilized. Patient lost for follow-up. His dialysis catheter still on the right chest. Never removed. Never went back to renal clinic In ED, patient is tachycardic with heart rate in 118 and febrile with temperature 104.9 saturating 94% on 4 L oxygen. WBC elevated at 25, platelets 553,000. Sodium 131, potassium 6.5, chloride 98, bicarb 22.1. BUN 67, creatinine 2.9, GFR 24. Lactic 4.3. Procal 10.36. Calcium 11.6. BNP >3280. UA from suprapubic catheter is turbid, pH 6.0, 2+ protein, 2+ blood, positive leukocyte esterase, RBC 54, WBC 214, yeast and amorphous crystals. UA from clean-catch similar but less WBC and RBC. EKG shows sinus tachycardia with heart rate at [address] abnormalities noted. Chest x-ray shows significant bilateral pneumonia. Nephrology consulted for hyperkalemia requiring emergent dialysis. 10/14/25: Patient seen and assessed for dialysis. Unable to dialyze as Right subclavian port still clogged despite alteplase. Recommend pharmacological management of hyperkalemia for now. Keep NPO, plan for new catheter insertion tomorrow if hyperkalemia persists 10/25/25: Patient seen and assessed at bedside with present. Potassium improved to 5.2 from 6.5. Continue pharmacological management of hyperkalemia. Schedule to remove right dialysis catheter as it is no longer being used and poses increased infection risk. May resume diet, pending speech eval. Sodium 132, chloride 105, bicarb 17.8 -> 13, started on bicitra 30 mL BID. Likely HAGMA secondary to lactic acidosis. Follow up urine lytes. Creatinine improving, UOP 590 cc, will give another bolus 1L NS. Exam Vital Signs Temp Pulse Resp BP Pulse Ox O2 Del Method O2 Flow Rate 96.9 F 92 20 99/71 98 Nasal Cannula 2 10/15/25 04:00 10/15/25 07:44 10/15/25 07:44 10/15/25 04:00 10/15/25 07:44 10/15/25 04:00 10/15/25 07:44 Narrative Exam Physical Exam General: Sick looking. Lost significant amount of weight cachetic, ill appearing. HEENT: Normocephalic, atraumatic, mucous membranes dry. Chest: Right subclavian dialysis port still in place. Heart: Regular rate and rhythm, normal S1 and S2, no murmurs appreciated. Lungs: Clear to auscultation with no wheezing or crackles. Abdomen: Soft, nondistended, nontender, positive bowel sounds. No guarding or rebound tenderness. : Araiza catheter in place. Neurologic: CN II-XII not assessed. Slurred speech at baseline. Extremities: No edema. Skin: No rash or ecchymoses. Scattered petechiae on legs. Objective Labs 10/16/25 03:45 10/16/25 03:45 Labs: Laboratory Results - last 24 hr 10/14/25 10/14/25 10/14/25 13:05 13:40 13:40 WBC 25.0 H RBC 5.11 Hgb 13.7 Hct 44.2 MCV 87 MCH 26.8 MCHC 31.0 RDW Std Deviation 51.8 H Plt Count 553 H D Neut % (Auto) 94 H Lymph % (Auto) 2 L [place] % (Auto) 3 Eos % (Auto) 0 Baso % (Auto) 0 Neut # (Auto) 23.5 H Lymph # (Auto) 0.5 L [place] # (Auto) 0.7 Eos # (Auto) 0.0 Baso # (Auto) 0.1 Immature Gran # (Auto) 0.24 H Absolute Nucleated RBC 0.00 Immature Gran % 1 H Nucleated RBC % 0 PT 13.0 H INR 1.2 APTT 28.6 Puncture Site ABG pH ABG pCO2 ABG pO2 ABG HCO3 ABG O2 Saturation ABG Base Excess Oxygen Liter Flow FiO2 Sodium 131 L Potassium 6.5 H* Chloride 98 Carbon Dioxide 22.1 Anion Gap 11 BUN 67 H Creatinine 2.9 H Estim Creat Clear Calc 20.3 L eGFR 24 L BUN/Creatinine Ratio 23 H Glucose 121 H Calculated Osmolality 283 Lactic Acid 4.3 H* Calcium 11.0 H Corrected Calcium 11.6 H Phosphorus Magnesium 2.4 Total Bilirubin 0.5 AST 72 H ALT 38 Alkaline Phosphatase 726 H Troponin I < 0.020 B-Natriuretic Peptide > 3280 H* Total Protein 6.4 Albumin 3.2 L Globulin 3.2 Albumin/Globulin Ratio 1.0 L Triglycerides Cholesterol LDL Cholesterol, Calc HDL Cholesterol Cholesterol/HDL Ratio Lipase 18 Procalcitonin 10.36 H Ur Collection Type Clean Catch Catheter Urine Color Yellow Urine Clarity Urine pH Ur Specific [place] Urine Protein Urine Glucose (UA) Urine Ketones Urine Blood Urine Nitrite Urine Bilirubin Urine Urobilinogen (Auto) Ur Leukocyte Esterase Urine RBC Urine WBC Ur Squamous Epith Cells Amorphous Crystals Urine Bacteria Urine Yeast (Budding) 10/14/25 10/14/25 10/14/25 13:40 13:40 13:40 WBC RBC Hgb Hct MCV MCH MCHC RDW Std Deviation Plt Count Neut % (Auto) Lymph % (Auto) [place] % (Auto) Eos % (Auto) Baso % (Auto) Neut # (Auto) Lymph # (Auto) [place] # (Auto) Eos # (Auto) Baso # (Auto) Immature Gran # (Auto) Absolute Nucleated RBC Immature Gran % Nucleated RBC % PT INR APTT Puncture Site ABG pH ABG pCO2 ABG pO2 ABG HCO3 ABG O2 Saturation ABG Base Excess Oxygen Liter Flow FiO2 Sodium Potassium Chloride Carbon Dioxide Anion Gap BUN Creatinine Estim Creat Clear Calc eGFR BUN/Creatinine Ratio Glucose Calculated Osmolality Lactic Acid Calcium Corrected Calcium Phosphorus Magnesium Total Bilirubin AST ALT Alkaline Phosphatase Troponin I B-Natriuretic Peptide Total Protein Albumin Globulin Albumin/Globulin Ratio Triglycerides Cholesterol LDL Cholesterol, Calc HDL Cholesterol Cholesterol/HDL Ratio Lipase Procalcitonin Ur Collection Type Urine Color Yellow Urine Clarity Hazy Turbid A Urine pH 6.0 6.0 Ur Specific [place] 1.020 Urine Protein Urine Glucose (UA) Urine Ketones Urine Blood Urine Nitrite Urine Bilirubin Urine Urobilinogen (Auto) Ur Leukocyte Esterase Urine RBC Urine WBC Ur Squamous Epith Cells Amorphous Crystals Urine Bacteria Urine Yeast (Budding) 10/14/25 10/14/25 10/14/25 13:40 13:40 13:40 WBC RBC Hgb Hct MCV MCH MCHC RDW Std Deviation Plt Count Neut % (Auto) Lymph % (Auto) [place] % (Auto) Eos % (Auto) Baso % (Auto) Neut # (Auto) Lymph # (Auto) [place] # (Auto) Eos # (Auto) Baso # (Auto) Immature Gran # (Auto) Absolute Nucleated RBC Immature Gran % Nucleated RBC % PT INR APTT Puncture Site ABG pH ABG pCO2 ABG pO2 ABG HCO3 ABG O2 Saturation ABG Base Excess Oxygen Liter Flow FiO2 Sodium Potassium Chloride Carbon Dioxide Anion Gap BUN Creatinine Estim Creat Clear Calc eGFR BUN/Creatinine Ratio Glucose Calculated Osmolality Lactic Acid Calcium Corrected Calcium Phosphorus Magnesium Total Bilirubin AST ALT Alkaline Phosphatase Troponin I B-Natriuretic Peptide Total Protein Albumin Globulin Albumin/Globulin Ratio Triglycerides Cholesterol LDL Cholesterol, Calc HDL Cholesterol Cholesterol/HDL Ratio Lipase Procalcitonin Ur Collection Type Urine Color Urine Clarity Urine pH Ur Specific [place] 1.026 Urine Protein 2+ A 2+ A Urine Glucose (UA) Negative Negative Urine Ketones Negative Urine Blood Urine Nitrite Urine Bilirubin Urine Urobilinogen (Auto) Ur Leukocyte Esterase Urine RBC Urine WBC Ur Squamous Epith Cells Amorphous Crystals Urine Bacteria Urine Yeast (Budding) 10/14/25 10/14/25 10/14/25 13:40 13:40 13:40 WBC RBC Hgb Hct MCV MCH MCHC RDW Std Deviation Plt Count Neut % (Auto) Lymph % (Auto) [place] % (Auto) Eos % (Auto) Baso % (Auto) Neut # (Auto) Lymph # (Auto) [place] # (Auto) Eos # (Auto) Baso # (Auto) Immature Gran # (Auto) Absolute Nucleated RBC Immature Gran % Nucleated RBC % PT INR APTT Puncture Site ABG pH ABG pCO2 ABG pO2 ABG HCO3 ABG O2 Saturation ABG Base Excess Oxygen Liter Flow FiO2 Sodium Potassium Chloride Carbon Dioxide Anion Gap BUN Creatinine Estim Creat Clear Calc eGFR BUN/Creatinine Ratio Glucose Calculated Osmolality Lactic Acid Calcium Corrected Calcium Phosphorus Magnesium Total Bilirubin AST ALT Alkaline Phosphatase Troponin I B-Natriuretic Peptide Total Protein Albumin Globulin Albumin/Globulin Ratio Triglycerides Cholesterol LDL Cholesterol, Calc HDL Cholesterol Cholesterol/HDL Ratio Lipase Procalcitonin Ur Collection Type Urine Color Urine Clarity Urine pH Ur Specific [place] Urine Protein Urine Glucose (UA) Urine Ketones Negative Urine Blood 1+ A 2+ A Urine Nitrite Negative Negative Urine Bilirubin Negative Urine Urobilinogen (Auto) Ur Leukocyte Esterase Urine RBC Urine WBC Ur Squamous Epith Cells Amorphous Crystals Urine Bacteria Urine Yeast (Budding) 10/14/25 10/14/25 10/14/25 13:40 13:40 13:40 WBC RBC Hgb Hct MCV MCH MCHC RDW Std Deviation Plt Count Neut % (Auto) Lymph % (Auto) [place] % (Auto) Eos % (Auto) Baso % (Auto) Neut # (Auto) Lymph # (Auto) [place] # (Auto) Eos # (Auto) Baso # (Auto) Immature Gran # (Auto) Absolute Nucleated RBC Immature Gran % Nucleated RBC % PT INR APTT Puncture Site ABG pH ABG pCO2 ABG pO2 ABG HCO3 ABG O2 Saturation ABG Base Excess Oxygen Liter Flow FiO2 Sodium Potassium Chloride Carbon Dioxide Anion Gap BUN Creatinine Estim Creat Clear Calc eGFR BUN/Creatinine Ratio Glucose Calculated Osmolality Lactic Acid Calcium Corrected Calcium Phosphorus Magnesium Total Bilirubin AST ALT Alkaline Phosphatase Troponin I B-Natriuretic Peptide Total Protein Albumin Globulin Albumin/Globulin Ratio Triglycerides Cholesterol LDL Cholesterol, Calc HDL Cholesterol Cholesterol/HDL Ratio Lipase Procalcitonin Ur Collection Type Urine Color Urine Clarity Urine pH Ur Specific [place] Urine Protein Urine Glucose (UA) Urine Ketones Urine Blood Urine Nitrite Urine Bilirubin Negative Urine Urobilinogen (Auto) Negative 2.0 Ur Leukocyte Esterase Positive Positive Urine RBC 4 H Urine WBC Ur Squamous Epith Cells Amorphous Crystals Urine Bacteria Urine Yeast (Budding) 10/14/25 10/14/25 10/14/25 13:40 13:40 13:40 WBC RBC Hgb Hct MCV MCH MCHC RDW Std Deviation Plt Count Neut % (Auto) Lymph % (Auto) [place] % (Auto) Eos % (Auto) Baso % (Auto) Neut # (Auto) Lymph # (Auto) [place] # (Auto) Eos # (Auto) Baso # (Auto) Immature Gran # (Auto) Absolute Nucleated RBC Immature Gran % Nucleated RBC % PT INR APTT Puncture Site ABG pH ABG pCO2 ABG pO2 ABG HCO3 ABG O2 Saturation ABG Base Excess Oxygen Liter Flow FiO2 Sodium Potassium Chloride Carbon Dioxide Anion Gap BUN Creatinine Estim Creat Clear Calc eGFR BUN/Creatinine Ratio Glucose Calculated Osmolality Lactic Acid Calcium Corrected Calcium Phosphorus Magnesium Total Bilirubin AST ALT Alkaline Phosphatase Troponin I B-Natriuretic Peptide Total Protein Albumin Globulin Albumin/Globulin Ratio Triglycerides Cholesterol LDL Cholesterol, Calc HDL Cholesterol Cholesterol/HDL Ratio Lipase Procalcitonin Ur Collection Type Urine Color Urine Clarity Urine pH Ur Specific [place] Urine Protein Urine Glucose (UA) Urine Ketones Urine Blood Urine Nitrite Urine Bilirubin Urine Urobilinogen (Auto) Ur Leukocyte Esterase Urine RBC 54 H Urine WBC 21 H 214 H Ur Squamous Epith Cells 0 0 Amorphous Crystals Present A Urine Bacteria Urine Yeast (Budding) 10/14/25 10/14/25 10/14/25 13:40 13:40 15:54 WBC 27.3 H RBC 4.35 L Hgb 11.9 L Hct 37.5 L MCV 86 MCH 27.4 MCHC 31.7 RDW Std Deviation 52.2 H Plt Count 423 D Neut % (Auto) 92 H Lymph % (Auto) 2 L [place] % (Auto) 4 Eos % (Auto) 0 Baso % (Auto) 0 Neut # (Auto) 25.0 H Lymph # (Auto) 0.6 L [place] # (Auto) 1.2 H Eos # (Auto) 0.0 Baso # (Auto) 0.0 Immature Gran # (Auto) 0.46 H Absolute Nucleated RBC 0.00 Immature Gran % 2 H Nucleated RBC % 0 PT INR APTT Puncture Site ABG pH ABG pCO2 ABG pO2 ABG HCO3 ABG O2 Saturation ABG Base Excess Oxygen Liter Flow FiO2 Sodium 131 L Potassium 5.2 H D Chloride 102 Carbon Dioxide 18.6 L Anion Gap 10 BUN 56 H Creatinine 2.7 H Estim Creat Clear Calc 21.8 L eGFR 26 L BUN/Creatinine Ratio 21 H Glucose 120 H Calculated Osmolality 279 Lactic Acid 4.3 H* Calcium 10.6 Corrected Calcium 11.5 H Phosphorus 3.5 Magnesium 2.2 Total Bilirubin 0.5 AST 64 H ALT 31 Alkaline Phosphatase 564 H D Troponin I B-Natriuretic Peptide Total Protein 5.8 Albumin 2.9 L Globulin 2.9 Albumin/Globulin Ratio 1.0 L Triglycerides Cholesterol LDL Cholesterol, Calc HDL Cholesterol Cholesterol/HDL Ratio Lipase Procalcitonin Ur Collection Type Urine Color Urine Clarity Urine pH Ur Specific [place] Urine Protein Urine Glucose (UA) Urine Ketones Urine Blood Urine Nitrite Urine Bilirubin Urine Urobilinogen (Auto) Ur Leukocyte Esterase Urine RBC Urine WBC Ur Squamous Epith Cells Amorphous Crystals Present A Urine Bacteria Rare Rare Urine Yeast (Budding) Present A 10/14/25 10/14/25 10/14/25 16:34 20:23 20:28 WBC RBC Hgb Hct MCV MCH MCHC RDW Std Deviation Plt Count Neut % (Auto) Lymph % (Auto) [place] % (Auto) Eos % (Auto) Baso % (Auto) Neut # (Auto) Lymph # (Auto) [place] # (Auto) Eos # (Auto) Baso # (Auto) Immature Gran # (Auto) Absolute Nucleated RBC Immature Gran % Nucleated RBC % PT INR APTT Puncture Site Right Radial ABG pH 7.41 ABG pCO2 32 ABG pO2 111 H ABG HCO3 20 ABG O2 Saturation 99 H ABG Base Excess -4 L Oxygen Liter Flow 3 FiO2 97 Sodium 132 L Potassium 5.3 H Chloride 102 Carbon Dioxide 18.9 L Anion Gap 11 BUN 61 H Creatinine 2.6 H Estim Creat Clear Calc 22.7 L eGFR 27 L BUN/Creatinine Ratio 23 H Glucose 90 Calculated Osmolality 281 Lactic Acid 3.1 H Calcium 11.8 H Corrected Calcium 12.7 H Phosphorus 3.9 Magnesium Total Bilirubin AST ALT Alkaline Phosphatase Troponin I B-Natriuretic Peptide Total Protein Albumin 2.9 L Globulin Albumin/Globulin Ratio Triglycerides Cholesterol LDL Cholesterol, Calc HDL Cholesterol Cholesterol/HDL Ratio Lipase Procalcitonin Ur Collection Type Urine Color Urine Clarity Urine pH Ur Specific [place] Urine Protein Urine Glucose (UA) Urine Ketones Urine Blood Urine Nitrite Urine Bilirubin Urine Urobilinogen (Auto) Ur Leukocyte Esterase Urine RBC Urine WBC Ur Squamous Epith Cells Amorphous Crystals Urine Bacteria Urine Yeast (Budding) 10/14/25 10/15/25 10/15/25 23:50 02:20 07:00 WBC 28.7 H RBC 4.44 L Hgb 12.1 L Hct 38.4 L MCV 87 MCH 27.3 MCHC 31.5 RDW Std Deviation 52.7 H Plt Count 403 Neut % (Auto) 91 H Lymph % (Auto) 3 L [place] % (Auto) 5 Eos % (Auto) 0 Baso % (Auto) 0 Neut # (Auto) 26.0 H Lymph # (Auto) 0.9 L [place] # (Auto) 1.4 H Eos # (Auto) 0.0 Baso # (Auto) 0.0 Immature Gran # (Auto) 0.37 H Absolute Nucleated RBC 0.00 Immature Gran % 1 H Nucleated RBC % 0 PT INR APTT Puncture Site ABG pH ABG pCO2 ABG pO2 ABG HCO3 ABG O2 Saturation ABG Base Excess Oxygen Liter Flow FiO2 Sodium 132 L Potassium 5.2 H Chloride 105 Carbon Dioxide 17.8 L Anion Gap 9 BUN 61 H Creatinine 2.6 H Estim Creat Clear Calc 22.7 L eGFR 27 L BUN/Creatinine Ratio 23 H Glucose 100 Calculated Osmolality 281 Lactic Acid 2.7 H 2.6 H 2.7 H Calcium 11.1 H Corrected Calcium 12.0 H Phosphorus 4.0 Magnesium 2.3 Total Bilirubin 0.6 AST 165 H ALT 34 Alkaline Phosphatase 592 H D Troponin I B-Natriuretic Peptide Total Protein 5.9 Albumin 2.9 L Globulin 3.0 Albumin/Globulin Ratio 1.0 L Triglycerides 143 Cholesterol 99 L LDL Cholesterol, Calc 56 HDL Cholesterol 14 L Cholesterol/HDL Ratio 7.1 H Lipase Procalcitonin Ur Collection Type Urine Color Urine Clarity Urine pH Ur Specific [place] Urine Protein Urine Glucose (UA) Urine Ketones Urine Blood Urine Nitrite Urine Bilirubin Urine Urobilinogen (Auto) Ur Leukocyte Esterase Urine RBC Urine WBC Ur Squamous Epith Cells Amorphous Crystals Urine Bacteria Urine Yeast (Budding) ABG Interpretation ABG results: 10/14/25 16:34 ABG pH 7.41 ABG pCO2 32 ABG pO2 111 H ABG HCO3 20 ABG O2 Saturation 99 H ABG Base Excess -4 L Quality Measures Quality Measures sepsis Current suspected stage: sepsis Possible source: pulmonary Blood cultures ordered: completed in ED Antibiotic ordered: Yes Assessment & Plan Assessment Current Active Medications: Generic Name Dose Route Start Last Admin Trade Name Freq PRN Reason Stop Dose Admin Acetaminophen 650 mg 10/14/25 15:17 Acetaminophen 325 Mg Tablet PO 11/13/25 15:16 Q6H PRN Fever >101.5 Albumin Human 25 gm in 100 mls @ 0 mls/hr 10/14/25 14:26 Albuminex 25% Ivpb IV Q30MIN PRN To maintain SBP>90 Per Protocol Vancomycin/Sodium Chloride 100 mls @ 120 mls/hr 10/15/25 10:00 Vancomycin/Ns 500 Mg Ivpb IV 10/22/25 09:59 Q24H [facility] Cefepime HCl 1 gm/ Sodium 50 mls @ 100 mls/hr 10/16/25 09:00 Chloride IV 10/23/25 08:59 QDAY [facility] Pantoprazole Sodium 40 mg 10/14/25 17:15 10/14/25 18:18 Pantoprazole Inj 40 Mg Vial IVP 11/13/25 17:14 40 mg QDAY [facility] Administration Pharmacy Consult 1 each 10/15/25 09:00 Vancomycin Pharmacy To Dose 1 Each Each IV 11/14/25 08:59 QDAY PRN SEPSIS Plan Patient is a 64 year old male with PMH of invasive urothelial carcinoma (on chemotherapy) with bilateral nephrostomy tubes for hydronephrosis (recently replaced 09/24/25) who presents to ED for generalized weakness and lethargy. Nephrology consulted for hyperkalemia requiring emergent dialysis. #Hyperkalemia (improving) #Hx [place] on HD T/Sat (last session July 2025)-did recover #Bilateral nephrostomy tubes (replaced 08/2025) - Presenting with generalized weakness. - Follows Dr. Santana, previously on dialysis T/Sat but discontinued as renal function recovered/stabilized. - Potassium 6.5 --> 5.2 s/p hyperkalemia cocktail, unable to administer Kayexelate due to difficulty swallowing - EKG shows sinus tachycardia, no peaked T waves noted - S/p NS bolus 1L in ED and NS 1 L at 75 mls/hr Plan: - No need for catheter reinsertion as patient improved with pharmacological management - Schedule for IR catheter removal - Will give another NS bolus as patient appears hypovolemic and has decreased UOP - May resume diet, pending speech eval - Strict INOs - Avoid nephrotoxic agents - Renally dose medications #Anion gap metabolic acidosis #Lactic acidosis in setting of sepsis - Bicarb 17.5 -> 13 - Anion gap 18 - Lactic acid 6.2 Plan: - NS bolus as above - Bicitra 30 mL TID #Sepsis 2/2 complicated UTI vs dialysis catheter related sepsis #Urothelial carcinoma with bilateral hydronephrosis (on chemo) #Anemia of chronic disease #Choreiform vs diskinetic like movements - Management per primary team Thank you for your consultation, please do not hesitate to reach out if you have any question or concern Patient plan of care was discussed with the attending physician, Dr. Santana. Babs Matamoros DO, PGY-1 Attending Provider Attestation/Addendum Patient seen and examined with resident physician Dr. Matamoros. Note reviewed, agree with findings and recommendations. Emergency dialysis ordered for hyperkalemia. However dialysis catheter despite alteplase was nonfunctioning. Could not get a temporary catheter through IR due to scheduling. In the interim spoke to primary team to continue with medical management. No EKG changes. Continue with IV fluids. Despite medical management if hyperkalemia persists will plan for dialysis tomorrow. Hopefully he will continue to improve with medical management and IV fluids. Regarding his sepsis he needs significant fluid resuscitation, broad-spectrum antibiotics. 10/15/2025 patient more alert and awake. Still having chorea. Potassium seems to be better. Urine output improving. Continue with IV fluids, broad-spectrum antibiotics. Spoke to Marisabel his -no need for dialysis. Will DC dialysis catheter due to potential source of infection and sepsis.
--- NOTE | 2025-10-15 10:30 | ESPR_ITS ---
<Statement entered by Lachelle Josue MD - 10/24/25 08:26> I reviewed above note and agree with findings and plans. I have also personally examined the patient with medicine team and went over assessment and plan with medical team including grad intern and resident physician. <Statement entered by Huey Gutierrez MD - 10/15/25 17:41> In summary: In summary, 64-year-old male with PMHx of invasive urethral carcinoma, bilateral hydronephrosis with bilateral nephrostomy tubes, chronic Viveros catheter, CKD 3B, senting with generalized weakness and order for movement in settings of sepsis and electrolyte abnormalities including hyperkalemia and mild hyponatremia. Major active problems: Potassium currently 5.7, hyperkalemia cocktail was given, pending repeat. Lactic acid currently 6.2, 1 L bolus given, pending repeat and will give another bolus as needed. Pneumonia currently being treated with CEFEPIME, pending cultures. Choreiform movements generalized weakness, negative head CT, continued on CARBAMAZEPINE, normal ammonia level, pending neurology recommendations. I?ve reviewed the note and agree with this assessment and plan, with the exceptions outlined above. I personally went over the labs, imaging, home medications, and prior records, and examined the patient. The case was also reviewed with the attending physician. Please note: this document was transcribed using voice recognition technology; minor inaccuracies may be present. Huey Gutierrez DO PGY II Documentation for date of: 10/15/25 Subjective Subjective Interval history: Mr. Meade is a 64M with history of invasive urothelial carcinoma, bilateral hydronephrosis with bilateral nephrostomy tube and chronic viveros catheter that drains urine, CKD IIIb, and stable choreform movements presents for generalized weakness. Per EMS, patient was hypotensive and hot to touch on scene at home. Upon chart review, he was admitted recently on 09/24/25 for UTI and received antibiotics. Patient follows Dr. Santana outpatient, and does not require dialysis. In the ED, he received sepsis bolus with empiric antibiotics. Hyperkelmia treated with medical management. He was admitted to telemetry for sepsis. 10/15/25: NAOE, VSS, afebrile. WBC 28.7 today from 27.3, switched from vanco + zosyn to cefepime today. TDC was removed today, nephrology has no plan for dialysis at this time. K 5.7, continue medical management per nephrology recs. Nephrostomy insertion site examined today, they appeared dry, clean, intact without drainage or erythema. CT head returned unremarkable, negative for mass or acute hemorrhage. Heparin 5000U SQ BID started today for DVT prophylaxis given patient's hx of cancer. Will continue to monitor closely, Bcx NGTD. Pending Ucx. 10/15/25 PM: Lactate returned 6.2, 1 L NaCl 0.9% bolus ordered. BP 88/55. Echo from 05/23/25 showed normal LV size and function. LVEF 50~55%. Exam Vital Signs Temp Pulse Resp BP Pulse Ox O2 Del Method O2 Flow Rate 98.0 F 96 21 H 101/68 99 Room Air 2 10/15/25 08:00 10/15/25 08:00 10/15/25 08:00 10/15/25 08:00 10/15/25 08:00 10/15/25 08:00 10/15/25 07:44 Narrative Exam General: Appears more awake, GCS 12 ([id number]). Cachexia. HEENT: Normocephalic, atraumatic, mucous membranes dry. Heart: Tachycardic. No M/R/G Lungs: CTAB. No increase WOB. Abdomen: Soft, nondistended, nontender. No guarding or rebound tenderness. N ephrostomy sites examined, appears d/c/i without erythema or drainage. Neurologic: Weak, unable to follow command. 1/5 strength in UE and LE. Unable to assess CN function. Extremities: No pitting edema in lower extremities. Loss of muscle tone. Skin: Petechiae to LLE. Bilateral LE scartch suh. Abrasions to left anterior chest wall. Objective Labs 10/15/25 02:20 10/15/25 10:56 Labs: Laboratory Results - last 24 hr 10/14/25 10/14/25 10/14/25 13:05 13:40 13:40 WBC 25.0 H RBC 5.11 Hgb 13.7 Hct 44.2 MCV 87 MCH 26.8 MCHC 31.0 RDW Std Deviation 51.8 H Plt Count 553 H D Neut % (Auto) 94 H Lymph % (Auto) 2 L [place] % (Auto) 3 Eos % (Auto) 0 Baso % (Auto) 0 Neut # (Auto) 23.5 H Lymph # (Auto) 0.5 L [place] # (Auto) 0.7 Eos # (Auto) 0.0 Baso # (Auto) 0.1 Immature Gran # (Auto) 0.24 H Absolute Nucleated RBC 0.00 Immature Gran % 1 H Nucleated RBC % 0 PT 13.0 H INR 1.2 APTT 28.6 Puncture Site ABG pH ABG pCO2 ABG pO2 ABG HCO3 ABG O2 Saturation ABG Base Excess Oxygen Liter Flow FiO2 Sodium 131 L Potassium 6.5 H* Chloride 98 Carbon Dioxide 22.1 Anion Gap 11 BUN 67 H Creatinine 2.9 H Estim Creat Clear Calc 20.3 L eGFR 24 L BUN/Creatinine Ratio 23 H Glucose 121 H Calculated Osmolality 283 Lactic Acid 4.3 H* Calcium 11.0 H Corrected Calcium 11.6 H Phosphorus Magnesium 2.4 Total Bilirubin 0.5 AST 72 H ALT 38 Alkaline Phosphatase 726 H Troponin I < 0.020 B-Natriuretic Peptide > 3280 H* Total Protein 6.4 Albumin 3.2 L Globulin 3.2 Albumin/Globulin Ratio 1.0 L Triglycerides Cholesterol LDL Cholesterol, Calc HDL Cholesterol Cholesterol/HDL Ratio Lipase 18 Procalcitonin 10.36 H Ur Collection Type Clean Catch Catheter Urine Color Yellow Urine Clarity Urine pH Ur Specific [place] Urine Protein Urine Glucose (UA) Urine Ketones Urine Blood Urine Nitrite Urine Bilirubin Urine Urobilinogen (Auto) Ur Leukocyte Esterase Urine RBC Urine WBC Ur Squamous Epith Cells Amorphous Crystals Urine Bacteria Urine Yeast (Budding) 10/14/25 10/14/25 10/14/25 13:40 13:40 13:40 WBC RBC Hgb Hct MCV MCH MCHC RDW Std Deviation Plt Count Neut % (Auto) Lymph % (Auto) [place] % (Auto) Eos % (Auto) Baso % (Auto) Neut # (Auto) Lymph # (Auto) [place] # (Auto) Eos # (Auto) Baso # (Auto) Immature Gran # (Auto) Absolute Nucleated RBC Immature Gran % Nucleated RBC % PT INR APTT Puncture Site ABG pH ABG pCO2 ABG pO2 ABG HCO3 ABG O2 Saturation ABG Base Excess Oxygen Liter Flow FiO2 Sodium Potassium Chloride Carbon Dioxide Anion Gap BUN Creatinine Estim Creat Clear Calc eGFR BUN/Creatinine Ratio Glucose Calculated Osmolality Lactic Acid Calcium Corrected Calcium Phosphorus Magnesium Total Bilirubin AST ALT Alkaline Phosphatase Troponin I B-Natriuretic Peptide Total Protein Albumin Globulin Albumin/Globulin Ratio Triglycerides Cholesterol LDL Cholesterol, Calc HDL Cholesterol Cholesterol/HDL Ratio Lipase Procalcitonin Ur Collection Type Urine Color Yellow Urine Clarity Hazy Turbid A Urine pH 6.0 6.0 Ur Specific [place] 1.020 Urine Protein Urine Glucose (UA) Urine Ketones Urine Blood Urine Nitrite Urine Bilirubin Urine Urobilinogen (Auto) Ur Leukocyte Esterase Urine RBC Urine WBC Ur Squamous Epith Cells Amorphous Crystals Urine Bacteria Urine Yeast (Budding) 10/14/25 10/14/25 10/14/25 13:40 13:40 13:40 WBC RBC Hgb Hct MCV MCH MCHC RDW Std Deviation Plt Count Neut % (Auto) Lymph % (Auto) [place] % (Auto) Eos % (Auto) Baso % (Auto) Neut # (Auto) Lymph # (Auto) [place] # (Auto) Eos # (Auto) Baso # (Auto) Immature Gran # (Auto) Absolute Nucleated RBC Immature Gran % Nucleated RBC % PT INR APTT Puncture Site ABG pH ABG pCO2 ABG pO2 ABG HCO3 ABG O2 Saturation ABG Base Excess Oxygen Liter Flow FiO2 Sodium Potassium Chloride Carbon Dioxide Anion Gap BUN Creatinine Estim Creat Clear Calc eGFR BUN/Creatinine Ratio Glucose Calculated Osmolality Lactic Acid Calcium Corrected Calcium Phosphorus Magnesium Total Bilirubin AST ALT Alkaline Phosphatase Troponin I B-Natriuretic Peptide Total Protein Albumin Globulin Albumin/Globulin Ratio Triglycerides Cholesterol LDL Cholesterol, Calc HDL Cholesterol Cholesterol/HDL Ratio Lipase Procalcitonin Ur Collection Type Urine Color Urine Clarity Urine pH Ur Specific [place] 1.026 Urine Protein 2+ A 2+ A Urine Glucose (UA) Negative Negative Urine Ketones Negative Urine Blood Urine Nitrite Urine Bilirubin Urine Urobilinogen (Auto) Ur Leukocyte Esterase Urine RBC Urine WBC Ur Squamous Epith Cells Amorphous Crystals Urine Bacteria Urine Yeast (Budding) 10/14/25 10/14/25 10/14/25 13:40 13:40 13:40 WBC RBC Hgb Hct MCV MCH MCHC RDW Std Deviation Plt Count Neut % (Auto) Lymph % (Auto) [place] % (Auto) Eos % (Auto) Baso % (Auto) Neut # (Auto) Lymph # (Auto) [place] # (Auto) Eos # (Auto) Baso # (Auto) Immature Gran # (Auto) Absolute Nucleated RBC Immature Gran % Nucleated RBC % PT INR APTT Puncture Site ABG pH ABG pCO2 ABG pO2 ABG HCO3 ABG O2 Saturation ABG Base Excess Oxygen Liter Flow FiO2 Sodium Potassium Chloride Carbon Dioxide Anion Gap BUN Creatinine Estim Creat Clear Calc eGFR BUN/Creatinine Ratio Glucose Calculated Osmolality Lactic Acid Calcium Corrected Calcium Phosphorus Magnesium Total Bilirubin AST ALT Alkaline Phosphatase Troponin I B-Natriuretic Peptide Total Protein Albumin Globulin Albumin/Globulin Ratio Triglycerides Cholesterol LDL Cholesterol, Calc HDL Cholesterol Cholesterol/HDL Ratio Lipase Procalcitonin Ur Collection Type Urine Color Urine Clarity Urine pH Ur Specific [place] Urine Protein Urine Glucose (UA) Urine Ketones Negative Urine Blood 1+ A 2+ A Urine Nitrite Negative Negative Urine Bilirubin Negative Urine Urobilinogen (Auto) Ur Leukocyte Esterase Urine RBC Urine WBC Ur Squamous Epith Cells Amorphous Crystals Urine Bacteria Urine Yeast (Budding) 10/14/25 10/14/25 10/14/25 13:40 13:40 13:40 WBC RBC Hgb Hct MCV MCH MCHC RDW Std Deviation Plt Count Neut % (Auto) Lymph % (Auto) [place] % (Auto) Eos % (Auto) Baso % (Auto) Neut # (Auto) Lymph # (Auto) [place] # (Auto) Eos # (Auto) Baso # (Auto) Immature Gran # (Auto) Absolute Nucleated RBC Immature Gran % Nucleated RBC % PT INR APTT Puncture Site ABG pH ABG pCO2 ABG pO2 ABG HCO3 ABG O2 Saturation ABG Base Excess Oxygen Liter Flow FiO2 Sodium Potassium Chloride Carbon Dioxide Anion Gap BUN Creatinine Estim Creat Clear Calc eGFR BUN/Creatinine Ratio Glucose Calculated Osmolality Lactic Acid Calcium Corrected Calcium Phosphorus Magnesium Total Bilirubin AST ALT Alkaline Phosphatase Troponin I B-Natriuretic Peptide Total Protein Albumin Globulin Albumin/Globulin Ratio Triglycerides Cholesterol LDL Cholesterol, Calc HDL Cholesterol Cholesterol/HDL Ratio Lipase Procalcitonin Ur Collection Type Urine Color Urine Clarity Urine pH Ur Specific [place] Urine Protein Urine Glucose (UA) Urine Ketones Urine Blood Urine Nitrite Urine Bilirubin Negative Urine Urobilinogen (Auto) Negative 2.0 Ur Leukocyte Esterase Positive Positive Urine RBC 4 H Urine WBC Ur Squamous Epith Cells Amorphous Crystals Urine Bacteria Urine Yeast (Budding) 10/14/25 10/14/25 10/14/25 13:40 13:40 13:40 WBC RBC Hgb Hct MCV MCH MCHC RDW Std Deviation Plt Count Neut % (Auto) Lymph % (Auto) [place] % (Auto) Eos % (Auto) Baso % (Auto) Neut # (Auto) Lymph # (Auto) [place] # (Auto) Eos # (Auto) Baso # (Auto) Immature Gran # (Auto) Absolute Nucleated RBC Immature Gran % Nucleated RBC % PT INR APTT Puncture Site ABG pH ABG pCO2 ABG pO2 ABG HCO3 ABG O2 Saturation ABG Base Excess Oxygen Liter Flow FiO2 Sodium Potassium Chloride Carbon Dioxide Anion Gap BUN Creatinine Estim Creat Clear Calc eGFR BUN/Creatinine Ratio Glucose Calculated Osmolality Lactic Acid Calcium Corrected Calcium Phosphorus Magnesium Total Bilirubin AST ALT Alkaline Phosphatase Troponin I B-Natriuretic Peptide Total Protein Albumin Globulin Albumin/Globulin Ratio Triglycerides Cholesterol LDL Cholesterol, Calc HDL Cholesterol Cholesterol/HDL Ratio Lipase Procalcitonin Ur Collection Type Urine Color Urine Clarity Urine pH Ur Specific [place] Urine Protein Urine Glucose (UA) Urine Ketones Urine Blood Urine Nitrite Urine Bilirubin Urine Urobilinogen (Auto) Ur Leukocyte Esterase Urine RBC 54 H Urine WBC 21 H 214 H Ur Squamous Epith Cells 0 0 Amorphous Crystals Present A Urine Bacteria Urine Yeast (Budding) 10/14/25 10/14/25 10/14/25 13:40 13:40 15:54 WBC 27.3 H RBC 4.35 L Hgb 11.9 L Hct 37.5 L MCV 86 MCH 27.4 MCHC 31.7 RDW Std Deviation 52.2 H Plt Count 423 D Neut % (Auto) 92 H Lymph % (Auto) 2 L [place] % (Auto) 4 Eos % (Auto) 0 Baso % (Auto) 0 Neut # (Auto) 25.0 H Lymph # (Auto) 0.6 L [place] # (Auto) 1.2 H Eos # (Auto) 0.0 Baso # (Auto) 0.0 Immature Gran # (Auto) 0.46 H Absolute Nucleated RBC 0.00 Immature Gran % 2 H Nucleated RBC % 0 PT INR APTT Puncture Site ABG pH ABG pCO2 ABG pO2 ABG HCO3 ABG O2 Saturation ABG Base Excess Oxygen Liter Flow FiO2 Sodium 131 L Potassium 5.2 H D Chloride 102 Carbon Dioxide 18.6 L Anion Gap 10 BUN 56 H Creatinine 2.7 H Estim Creat Clear Calc 21.8 L eGFR 26 L BUN/Creatinine Ratio 21 H Glucose 120 H Calculated Osmolality 279 Lactic Acid 4.3 H* Calcium 10.6 Corrected Calcium 11.5 H Phosphorus 3.5 Magnesium 2.2 Total Bilirubin 0.5 AST 64 H ALT 31 Alkaline Phosphatase 564 H D Troponin I B-Natriuretic Peptide Total Protein 5.8 Albumin 2.9 L Globulin 2.9 Albumin/Globulin Ratio 1.0 L Triglycerides Cholesterol LDL Cholesterol, Calc HDL Cholesterol Cholesterol/HDL Ratio Lipase Procalcitonin Ur Collection Type Urine Color Urine Clarity Urine pH Ur Specific [place] Urine Protein Urine Glucose (UA) Urine Ketones Urine Blood Urine Nitrite Urine Bilirubin Urine Urobilinogen (Auto) Ur Leukocyte Esterase Urine RBC Urine WBC Ur Squamous Epith Cells Amorphous Crystals Present A Urine Bacteria Rare Rare Urine Yeast (Budding) Present A 10/14/25 10/14/25 10/14/25 16:34 20:23 20:28 WBC RBC Hgb Hct MCV MCH MCHC RDW Std Deviation Plt Count Neut % (Auto) Lymph % (Auto) [place] % (Auto) Eos % (Auto) Baso % (Auto) Neut # (Auto) Lymph # (Auto) [place] # (Auto) Eos # (Auto) Baso # (Auto) Immature Gran # (Auto) Absolute Nucleated RBC Immature Gran % Nucleated RBC % PT INR APTT Puncture Site Right Radial ABG pH 7.41 ABG pCO2 32 ABG pO2 111 H ABG HCO3 20 ABG O2 Saturation 99 H ABG Base Excess -4 L Oxygen Liter Flow 3 FiO2 97 Sodium 132 L Potassium 5.3 H Chloride 102 Carbon Dioxide 18.9 L Anion Gap 11 BUN 61 H Creatinine 2.6 H Estim Creat Clear Calc 22.7 L eGFR 27 L BUN/Creatinine Ratio 23 H Glucose 90 Calculated Osmolality 281 Lactic Acid 3.1 H Calcium 11.8 H Corrected Calcium 12.7 H Phosphorus 3.9 Magnesium Total Bilirubin AST ALT Alkaline Phosphatase Troponin I B-Natriuretic Peptide Total Protein Albumin 2.9 L Globulin Albumin/Globulin Ratio Triglycerides Cholesterol LDL Cholesterol, Calc HDL Cholesterol Cholesterol/HDL Ratio Lipase Procalcitonin Ur Collection Type Urine Color Urine Clarity Urine pH Ur Specific [place] Urine Protein Urine Glucose (UA) Urine Ketones Urine Blood Urine Nitrite Urine Bilirubin Urine Urobilinogen (Auto) Ur Leukocyte Esterase Urine RBC Urine WBC Ur Squamous Epith Cells Amorphous Crystals Urine Bacteria Urine Yeast (Budding) 10/14/25 10/15/25 10/15/25 23:50 02:20 07:00 WBC 28.7 H RBC 4.44 L Hgb 12.1 L Hct 38.4 L MCV 87 MCH 27.3 MCHC 31.5 RDW Std Deviation 52.7 H Plt Count 403 Neut % (Auto) 91 H Lymph % (Auto) 3 L [place] % (Auto) 5 Eos % (Auto) 0 Baso % (Auto) 0 Neut # (Auto) 26.0 H Lymph # (Auto) 0.9 L [place] # (Auto) 1.4 H Eos # (Auto) 0.0 Baso # (Auto) 0.0 Immature Gran # (Auto) 0.37 H Absolute Nucleated RBC 0.00 Immature Gran % 1 H Nucleated RBC % 0 PT INR APTT Puncture Site ABG pH ABG pCO2 ABG pO2 ABG HCO3 ABG O2 Saturation ABG Base Excess Oxygen Liter Flow FiO2 Sodium 132 L Potassium 5.2 H Chloride 105 Carbon Dioxide 17.8 L Anion Gap 9 BUN 61 H Creatinine 2.6 H Estim Creat Clear Calc 22.7 L eGFR 27 L BUN/Creatinine Ratio 23 H Glucose 100 Calculated Osmolality 281 Lactic Acid 2.7 H 2.6 H 2.7 H Calcium 11.1 H Corrected Calcium 12.0 H Phosphorus 4.0 Magnesium 2.3 Total Bilirubin 0.6 AST 165 H ALT 34 Alkaline Phosphatase 592 H D Troponin I B-Natriuretic Peptide Total Protein 5.9 Albumin 2.9 L Globulin 3.0 Albumin/Globulin Ratio 1.0 L Triglycerides 143 Cholesterol 99 L LDL Cholesterol, Calc 56 HDL Cholesterol 14 L Cholesterol/HDL Ratio 7.1 H Lipase Procalcitonin Ur Collection Type Urine Color Urine Clarity Urine pH Ur Specific [place] Urine Protein Urine Glucose (UA) Urine Ketones Urine Blood Urine Nitrite Urine Bilirubin Urine Urobilinogen (Auto) Ur Leukocyte Esterase Urine RBC Urine WBC Ur Squamous Epith Cells Amorphous Crystals Urine Bacteria Urine Yeast (Budding) ABG Interpretation ABG results: 10/14/25 16:34 ABG pH 7.41 ABG pCO2 32 ABG pO2 111 H ABG HCO3 20 ABG O2 Saturation 99 H ABG Base Excess -4 L Quality Measures Quality Measures sepsis Current suspected stage: sepsis Possible source: pulmonary Blood cultures ordered: completed in ED Antibiotic ordered: Yes Assessment & Plan Assessment Current Active Medications: Generic Name Dose Route Start Last Admin Trade Name Freq PRN Reason Stop Dose Admin Acetaminophen 650 mg 10/14/25 15:17 Acetaminophen 325 Mg Tablet PO 11/13/25 15:16 Q6H PRN Fever >101.5 Citric Acid/Sodium Citrate 30 ml 10/15/25 21:00 Citric Acid/Sodium Citr 15 Ml Udc (Bicitra) PO 11/14/25 20:59 BID SHADY Albumin Human 25 gm in 100 mls @ 0 mls/hr 10/14/25 14:26 Albuminex 25% Ivpb IV Q30MIN PRN To maintain SBP>90 Per Protocol Vancomycin/Sodium Chloride 100 mls @ 120 mls/hr 10/15/25 10:00 Vancomycin/Ns 500 Mg Ivpb IV 10/22/25 09:59 Q24H SHADY Cefepime HCl 1 gm/ Sodium 50 mls @ 100 mls/hr 10/16/25 09:00 Chloride IV 10/23/25 08:59 QDAY SHADY Sodium Chloride 1,000 mls @ 999 mls/hr 10/15/25 09:51 Ns IV 10/15/25 10:51 .Q1H1M ONE Pantoprazole Sodium 40 mg 10/14/25 17:15 10/14/25 18:18 Pantoprazole Inj 40 Mg Vial IVP 11/13/25 17:14 40 mg QDAY SHADY Administration Pharmacy Consult 1 each 10/15/25 09:00 Vancomycin Pharmacy To Dose 1 Each Each IV 11/14/25 08:59 QDAY PRN SEPSIS Plan Mr. Meade is a 64M with history of invasive urothelial carcinoma, bilateral hydronephrosis with bilateral nephrostomy tube and chronic viveros catheter, CKD IIIb, and stable choreform movements presents for generalized weakness. He was admitted for sepsis. #Sepsis #Lactic acidosis #Leukocytosis #Fever #Hypotension #Pneumonia Recently admitted on 09/24/25 for UTI. Received antibiotics. Received 1L NaCl 0.9% in the ED. Zosyn + Vanco x 1. CXR 10/14/25 showed diffuse left lung pneumonia and right base pneumonia. - Switch to Cefepime (10/16 ~ 10/23) from Zosyn and vanco - Pending Ucx - Bcx NGTD - NaCl 0.9% @ 75ml/hr x 1 (10/14/25) - Continue home midodrine 5mg PO TID PRN if SBP < 110. #Generalized weakness #Acute encephlopathy #Choreform movements A/0 x 1, GCS 10 in ED. Likely due to hyperkalemia and sepsis. Fell 2 day prior to admission, no LOC, but did land on his head. Choreform movements at baseline. - CT head negative for acute hemorrhage, mass effect or midine shift. - Ammonia level 24. - PT consult - Speech consult for official swallow eval. --> recs Dysphagia 2 diet - Continue home carbamazepine #[place] on CKD IIIb #Hyperkalemia #Hyponatremia #Elevated Alk Phos #Hypercalcemia TDC occluded despite ateplase flush. Medical management for now. - TDC removed, no plan for dialysis per nephrology. - hyperK cocktail in ED x 1 - hyperK cocktail x 1 (10/14/25) - hyperK cocktail x 1 (10/15/25) - Patiromer 8.4gm PO QD. - Strict I/Os - monitor urine output - daily labs, monitor chemistry - renal dose med, avoid nephrotoxin - no recent contrast or offending mediations - Nephrology consulted, appreciate recs --> Started Bicitra 30mL BID. #Urothelial carcinoma #Bilateral hydronephrosis S/p bilateral nephrostomy tube #Chronic indwelling catheter - chronic medical problem - continue to monitor for urine out in viveros bags and nephrostomy bag. - outpatient follow up Health maintenance Dispo: Pending resolution of sepsis DVT prophylaxis: Heparin SQ BID GI prophylaxis: Protonix 40mg QD Antibiotics: Cefepime Bowel Regimen: N/A Diet: Dysphagia 2 diet Lines: Peripheral IV. Chronic indwelling cath. Bilateral nephrostomy tube. Code status: Full code Case discussed with my senior resident Dr. Gutierrez Case discussed with my attending Dr. Joselo Kirk, PGY 1
[2025-10-15] MEDS: VANCOMYCIN/NS 500 MG IVPB 100 ML 120 MG IV (10:46)
[2025-10-15] MEDS: SODIUM CHLORIDE 0.9% 1000 ML 1,000 ML 999 ML IV ×2 (10:52→16:14)
[2025-10-15 11:27] LABS: Albumin, Serum 3.4 gm/dL (3.4-4.8); Anion Gap 13 (7-16); BUN/Creatinine Ratio 21 Ratio (12-20); Blood Urea Nitrogen 54 mg/dL (9-23); Calcium 11.6 mg/dL (8.3-10.6); Calcium (Corrected) 12.1 mg/dL (8.5-10.1); Carbon Dioxide 17.6 mMol/L (20.0-31.0); Chloride 102 mMol/L (98-107); Creatinine (Component) 2.6 mg/dL (0.6-1.3); Estimated Creatinine Clearance 22.7 mL/min (>60); Glucose 83 mg/dL (74-106); Osmolality,Calculated 280 (275-295); Phosphorous 4.7 mg/dL (2.4-5.1); Potassium 5.7 mMol/L (3.4-5.1); Sodium 133 mMol/L (136-145); eGFR 27 See Note
[2025-10-15 11:28] LABS: Ammonia 24 uMol/L (11-32)
[2025-10-15 11:39] LABS: Chloride,Urine Random 21.5 mMol/L (55.0-125.0); Potassium,Urine Random 54 mMol/L (12-62); Sodium,Urine Random 19.9 mMol/L (20.0-110.0)
--- NOTE | 2025-10-15 12:11 | PCS.ST ---
Swallow Evaluation completed. See report for details. Recommend Dysphagia 2 (minced) diet. No s/s of aspiration.
[2025-10-15] MEDS: DEXTROSE 50%-WATER INJ 50 ML SYRINGE 100 ML IV (12:44)
[2025-10-15] MEDS: SOD POLYSTYRENE SULFON SUSP 15 GM/60 ML BTL 30 GM PO (12:44)
[2025-10-15] MEDS: INSULIN HUM REGULAR 1 UNIT/0.01 ML (PER UNIT) 5 UNIT IV (12:51)
--- NOTE | 2025-10-15 13:21 | PC.PT ---
Patient was approached at 1020 for PT eval. Patient was in a procedure to remove a chest catheter. Patient returned but patient and female visitor at bedside asked for patient to be seen tomorrow to allow him to rest. Patient had some pain from the procedure and stated he would work with PT tomorrow. Will re-attempt PT eval at another time.
[2025-10-15] MEDS: PATIROMER CALCIUM 8.4 GM PACKET PO (13:54)
[2025-10-15 15:59] LABS: Lactate (Lactic Acid) 6.2 mMol/L (0.4-2.0)
[2025-10-15] MEDS: MIDODRINE 5 MG TABLET PO (16:13)
[2025-10-15 17:41] LABS: Albumin, Serum 3.0 gm/dL (3.4-4.8); Anion Gap 15 (7-16); BUN/Creatinine Ratio 23 Ratio (12-20); Blood Urea Nitrogen 63 mg/dL (9-23); Calcium 10.5 mg/dL (8.3-10.6); Calcium (Corrected) 11.3 mg/dL (8.5-10.1); Carbon Dioxide 17.5 mMol/L (20.0-31.0); Chloride 104 mMol/L (98-107); Creatinine (Component) 2.8 mg/dL (0.6-1.3); Estimated Creatinine Clearance 21.1 mL/min (>60); Glucose 141 mg/dL (74-106); Osmolality,Calculated 291 (275-295); Phosphorous 4.6 mg/dL (2.4-5.1); Potassium 5.4 mMol/L (3.4-5.1); Sodium 136 mMol/L (136-145); eGFR 25 See Note
--- NOTE | 2025-10-15 17:41 | XR_ITS ---
Examination: Venous duplex upper extremity sonogram, bilateral. Date and time of exam: September, 7056 hours INDICATIONS: Swelling and weak pulse in the left arm today cold hand today Technique: Multiple sonographic images of the deep venous system have been obtained. B-mode/2-D grayscale imaging of vascular structures and Doppler spectral analysis (waveforms) and color performed Both legs are examined. Findings: Normal right deep venous system No diagnostic visualization left cephalic vein Positive for acute thrombus in the superficial left basilic vein IMPRESSION: Negative for DVT Positive for acute thrombus in the superficial left basilic vein
--- NOTE | 2025-10-15 17:42 | XR_ITS ---
Examination: Arterial duplex upper extremity study. Date and time of exam: October 15, 2025, 1807 hours INDICATIONS: Weak pulses in the left arm, cold left hand today Findings: Duplex sonographic imaging of the upper extremity arteries using B-mode/Kelley scale imaging and Doppler spectral analysis and color flow. Ankle brachial indices have been recorded. No elevation of peak systolic velocities involving the right or left subclavian, axillary, brachial, radial or ulnar arteries Arterial flow is noted in the right and left entire upper extremity arterial systems IMPRESSION: Negative study
[2025-10-15] MEDS: MELATONIN 3 MG TABLET PO (18:43)
[2025-10-15 18:44] LABS: Reflex Lactate? Y
[2025-10-15 19:12] LABS: Lactic Acid, 3 HR 6.1 mMol/L (0.4-2.0)
[2025-10-15] MEDS: RINGERS LACTATED 1000 ML 1,000 ML 999 ML IV ×2 (20:05→22:51)
[2025-10-15] MEDS: CITRIC ACID/SODIUM CITR 15 ML UDC (BICITRA) 30 ML PO (20:12)
[2025-10-15] MEDS: HEPARIN SOD INJ 5000 UNIT/ML VIAL SC (20:12)
[2025-10-15 22:08] LABS: Lactate (Lactic Acid) 6.2 mMol/L (0.4-2.0)
[2025-10-15 23:13] LABS: Albumin, Serum 2.8 gm/dL (3.4-4.8); Anion Gap 18 (7-16); BUN/Creatinine Ratio 19 Ratio (12-20); Blood Urea Nitrogen 50 mg/dL (9-23); Calcium 10.4 mg/dL (8.3-10.6); Calcium (Corrected) 11.4 mg/dL (8.5-10.1); Chloride 107 mMol/L (98-107); Creatinine (Component) 2.6 mg/dL (0.6-1.3); Estimated Creatinine Clearance 22.7 mL/min (>60); Glucose 111 mg/dL (74-106); Osmolality,Calculated 289 (275-295); Phosphorous 4.2 mg/dL (2.4-5.1); Potassium 4.9 mMol/L (3.4-5.1); Sodium 138 mMol/L (136-145); eGFR 27 See Note
[2025-10-15 23:19] LABS: Carbon Dioxide 13.0 mMol/L (20.0-31.0)
[2025-10-16] VITALS (11 sets, daily range): BP systolic 92–110; BP diastolic 51–68; PULSE 85–98; RESP 18–26; TEMP 35.9–36.5; O2SAT 96–100; BMI 21.2; BMI 20.9; BMI 12.0
[2025-10-16 00:47] LABS: Lactate (Lactic Acid) 5.3 mMol/L (0.4-2.0)
[2025-10-16 00:48] LABS: Base Excess, Venous -6 (-3-3); O2 Saturation, Venous 70 % (96-97); PCO2, Venous 36 mmHg (36-56); PO2, Venous 37 mmHg (15-58); pH, Venous 7.33 (7.33-7.66)
[2025-10-16 01:07] LABS: Reflex Lactate? Y
[2025-10-16 01:13] LABS: Alanine Aminotransferase 134 U/L (10-49); Albumin, Serum 2.8 gm/dL (3.4-4.8); Alkaline Phosphatase 908 U/L (46-116); Aspartate Amino Transferase 298 U/L (0-34); Bilirubin,Direct 0.2 mg/dL (0.0-0.3); Bilirubin,Total 0.4 mg/dL (0.3-1.2); Total Protein 5.5 gm/dL (5.7-8.2)
[2025-10-16] MEDS: ALBUMIN HUMAN-KJDA 25% IVPB 25 GM/100 ML BTL IV ×3 (01:31→13:32)
[2025-10-16 01:44] LABS: Anion Gap 16 (7-16); BUN/Creatinine Ratio 23 Ratio (12-20); Blood Urea Nitrogen 55 mg/dL (9-23); Calcium 10.0 mg/dL (8.3-10.6); Calcium (Corrected) 11.0 mg/dL (8.5-10.1); Carbon Dioxide 15.3 mMol/L (20.0-31.0); Chloride 107 mMol/L (98-107); Creatinine (Component) 2.4 mg/dL (0.6-1.3); Estimated Creatinine Clearance 24.6 mL/min (>60); Glucose 110 mg/dL (74-106); Osmolality,Calculated 291 (275-295); Phosphorous 3.9 mg/dL (2.4-5.1); Potassium 4.5 mMol/L (3.4-5.1); Sodium 138 mMol/L (136-145); eGFR 30 See Note
[2025-10-16] MEDS: MIDODRINE 5 MG TABLET PO (02:02)
--- NOTE | 2025-10-16 02:07 | XR_ITS ---
Examination: CT abdomen and pelvis without contrast. Coronal 3-D reconstructions. Sagittal 2-D reconstructions. Date and time of exam: October 16, 2025, 0338 hours INDICATIONS: Abdominal pain today with elevated liver function test on laboratory examination today's CTDI: vol (mGy): 5.73 DLP: (mGycm): 430 Technique: Axial images of the abdomen have been obtained, 3 mm slice thickness Intravenous contrast material has not been administered. Low dose protocols were performed. One or more of the following dose reduction techniques were used; automated exposure control, adjustment of the mA and/or KV according to patient size, use of iterative reconstruction technique. Findings: Moderate bilateral pleural effusions, atelectasis and/or pneumonia at the lung bases This is a limited noncontrast study Multiple poorly defined liver lesions with hepatomegaly Spleen is not enlarged No definite gallstones Extensive abdominal and pelvic lymphadenopathy No bowel obstruction Urinary bladder wall is markedly thickened There is ascites There is prostatomegaly 5.7 cm There is anasarca There are multiple osteolytic lesions involving ribs vertebral bodies pelvis Hips also demonstrate osteolytic lesions Osteolytic lesion at the T11 level appears to extend into the spinal canal, axial image 50 IMPRESSION: Severely limited noncontrast study Multiple hepatic metastases Extensive abdominal and pelvic lymphadenopathy Mild ascites Anasarca Marked prostatomegaly Marked thickening of the urinary bladder wall, consider bladder carcinoma, cystitis Multiple osteolytic lesions, the T11 osteolytic lesion appears to extend into the spinal canal, consider MRI thoracic lumbar spine follow-up
[2025-10-16 03:42] LABS: Reflex Lactate? Y
[2025-10-16 03:57] LABS: Lactate (Lactic Acid) 3.0 mMol/L (0.4-2.0)
[2025-10-16 04:11] LABS: Basophils # (Auto) 0.0 Thou/mm3 (0.0-0.2); Basophils % (Auto) 0 % (0-2.5); Eosinophils # (Auto) 0.0 Thou/mm3 (0.0-0.5); Eosinophils % (Auto) 0 % (0-10); Hematocrit 32.8 % (41.0-53.0); Hemoglobin 10.4 g/dL (13.5-16.0); Immature Granulocytes Auto 0.25 Thou/mm3 (0.00-0.00); Lymphocytes # (Auto) 0.6 Thou/mm3 (1.0-4.8); Lymphocytes % (Auto) 2 % (10-50); Mean Corpuscular HGB Conc 31.7 g/dl (31.0-37.0); Mean Corpuscular Hemoglobin 27.5 pg (25.0-35.0); Mean Corpuscular Volume 87 fL (80-100); Monocytes # (Auto) 1.1 Thou/mm3 (0.0-0.8); Monocytes % (Auto) 4 % (0-12); Neutrophils # (Auto) 24.7 Thou/mm3 (1.8-7.7); Neutrophils % (Auto) 93 % (37-80); Nucleated Red Blood Cell # 0.00 Thou/mm3 (0.00-0.00); Nucleated Red Blood Cell % 0 /100 WBC (0); Platelet Count 343 Thou/mm3 (140-440); RDW Standard Deviation 53.4 fL (35.1-43.9); Red Blood Count 3.78 Miln/mm3 (4.50-5.90); White Blood Count 26.7 Thou/mm3 (3.8-10.6)
[2025-10-16 04:32] LABS: Alanine Aminotransferase 112 U/L (10-49); Albumin, Serum 3.1 gm/dL (3.4-4.8); Albumin/Globulin Ratio 1.2 (1.2-2.2); Alkaline Phosphatase 778 U/L (46-116); Anion Gap 12 (7-16); Aspartate Amino Transferase 217 U/L (0-34); BUN/Creatinine Ratio 25 Ratio (12-20); Bilirubin,Total 0.5 mg/dL (0.3-1.2); Blood Urea Nitrogen 60 mg/dL (9-23); Calcium 10.1 mg/dL (8.3-10.6); Calcium (Corrected) 10.8 mg/dL (8.5-10.1); Carbon Dioxide 19.6 mMol/L (20.0-31.0); Chloride 106 mMol/L (98-107); Creatinine (Component) 2.4 mg/dL (0.6-1.3); Estimated Creatinine Clearance 24.6 mL/min (>60); Globulin 2.6 gm/dL (2.3-3.5); Glucose 115 mg/dL (74-106); Magnesium 2.1 mg/dL (1.6-2.6); Osmolality,Calculated 293 (275-295); Phosphorous 3.5 mg/dL (2.4-5.1); Potassium 4.4 mMol/L (3.4-5.1); Sodium 138 mMol/L (136-145); Total Protein 5.7 gm/dL (5.7-8.2); Vancomycin,Random 13.5 mcg/mL; eGFR 30 See Note
[2025-10-16] MEDS: RINGERS LACTATED 1000 ML 1,000 ML 125 ML IV (06:22)
[2025-10-16 06:55] LABS: Reflex Lactate? Y
[2025-10-16 08:02] LABS: Lactic Acid, 3 HR 2.9 mMol/L (0.4-2.0)
[2025-10-16] MEDS: CEFEPIME INJ 1 GM in SODIUM CHLORIDE 0.9% (Popper) 50 ML IV (08:06)
[2025-10-16] MEDS: CITRIC ACID/SODIUM CITR 15 ML UDC (BICITRA) 30 ML PO (08:07)
[2025-10-16] MEDS: PANTOPRAZOLE 40 MG TABLET PO (08:07)
[2025-10-16] MEDS: HEPARIN SOD INJ 5000 UNIT/ML VIAL SC (08:15)
--- NOTE | 2025-10-16 08:22 | ESPR_ITS ---
Documentation for date of: 10/16/25 Subjective Subjective Interval history: History of present illness: Patient is a 64 year old male with PMH of invasive urothelial carcinoma (on chemotherapy) with bilateral nephrostomy tubes for hydronephrosis (recently replaced 09/24/25) who presents to ED for generalized weakness and lethargy. He is a long time patient of Dr. Santana, was previously on HD twice a week, last dialysis session August 21 2025 but discontinued after nephrostomy tubes placed and renal function had stabilized. Patient lost for follow-up. His dialysis catheter still on the right chest. Never removed. Never went back to renal clinic In ED, patient is tachycardic with heart rate in 118 and febrile with temperature 104.9 saturating 94% on 4 L oxygen. WBC elevated at 25, platelets 553,000. Sodium 131, potassium 6.5, chloride 98, bicarb 22.1. BUN 67, creatinine 2.9, GFR 24. Lactic 4.3. Procal 10.36. Calcium 11.6. BNP >3280. UA from suprapubic catheter is turbid, pH 6.0, 2+ protein, 2+ blood, positive leukocyte esterase, RBC 54, WBC 214, yeast and amorphous crystals. UA from clean-catch similar but less WBC and RBC. EKG shows sinus tachycardia with heart rate at [address] abnormalities noted. Chest x-ray shows significant bilateral pneumonia. Nephrology consulted for hyperkalemia requiring emergent dialysis. 10/14/25: Patient seen and assessed for dialysis. Unable to dialyze as Right subclavian port still clogged despite alteplase. Recommend pharmacological management of hyperkalemia for now. Keep NPO, plan for new catheter insertion tomorrow if hyperkalemia persists 10/15/25: Patient seen and assessed at bedside with present. Potassium improved to 5.2 from 6.5. Continue pharmacological management of hyperkalemia. Schedule to remove right dialysis catheter as it is no longer being used and poses increased infection risk. May resume diet, pending speech eval. Sodium 132, chloride 105, bicarb 17.8 -> 13, started on bicitra 30 mL BID. Likely HAGMA secondary to lactic acidosis. Follow up urine lytes. Creatinine improving, UOP 590 cc, will give another bolus 1L NS. 10/16/25: Patient seen and assessed at bedside. Overnight, given LR bolux x2 and started on IV albumin maintenance due to low BP (systolic 80, but MAP >65). UOP 830, nephrostomy tubes draining well. Potassium 4.4 (from 5.7) s/p insulin 5 x1, Veltassa x1, and Kayexelate 30 g x1 yesterday. Veltassa prn if potassium greater than 5.4, need to correct acidosis first. Lactic 3.0 (from 6.2), continue IVF as patient is still hypovolemic. Bicarb 19.6, continue Bicitra for today. Creatinine 2.4, back to baseline. Pending catheter culture. Exam Vital Signs Temp Pulse Resp BP Pulse Ox O2 Del Method O2 Flow Rate 97.2 F 90 18 106/61 96 Nasal Cannula 1 10/16/25 06:00 10/16/25 06:00 10/16/25 04:00 10/16/25 04:00 10/16/25 04:00 10/16/25 04:00 10/16/25 04:00 Narrative Exam Physical Exam General: Sick looking. Lost significant amount of weight cachetic, ill appearing. HEENT: Normocephalic, atraumatic, mucous membranes dry. Heart: Regular rate and rhythm, normal S1 and S2, no murmurs appreciated. Lungs: Clear to auscultation with no wheezing or crackles. Abdomen: Soft, nondistended, tender, positive bowel sounds. No guarding or rebound tenderness. : Araiza catheter in place. Neurologic: CN II-XII not assessed. Slurred speech at baseline. Extremities: No edema. Skin: No rash or ecchymoses. Scattered petechiae on legs. Objective Labs 10/16/25 03:45 10/16/25 03:45 Labs: Laboratory Results - last 24 hr 10/15/25 10/15/25 10/15/25 10:56 15: 16:52 WBC RBC Hgb Hct MCV MCH MCHC RDW Std Deviation Plt Count Neut % (Auto) Lymph % (Auto) [place] % (Auto) Eos % (Auto) Baso % (Auto) Neut # (Auto) Lymph # (Auto) [place] # (Auto) Eos # (Auto) Baso # (Auto) Immature Gran # (Auto) Absolute Nucleated RBC Immature Gran % Nucleated RBC % VBG pH VBG pCO2 VBG pO2 VBG O2 Sat (Patti) VBG Base Excess Sodium 133 L 136 Potassium 5.7 H D 5.4 H Chloride 102 104 Carbon Dioxide 17.6 L 17.5 L Anion Gap 13 15 BUN 54 H 63 H Creatinine 2.6 H 2.8 H Estim Creat Clear Calc 22.7 L 21.1 L eGFR 27 L 25 L BUN/Creatinine Ratio 21 H 23 H Glucose 83 141 H D Calculated Osmolality 280 291 Lactic Acid 6.2 H* Calcium 11.6 H 10.5 Corrected Calcium 12.1 H 11.3 H Phosphorus 4.7 4.6 Magnesium Total Bilirubin Direct Bilirubin AST ALT Alkaline Phosphatase Ammonia 24 Total Protein Albumin 3.4 D 3.0 L Globulin Albumin/Globulin Ratio Ur Random Sodium 19.9 L Ur Random Potassium 54 Ur Random Chloride 21.5 L Random Vancomycin 10/15/25 10/15/25 10/16/25 18:59 21:49 00:24 WBC RBC Hgb Hct MCV MCH MCHC RDW Std Deviation Plt Count Neut % (Auto) Lymph % (Auto) [place] % (Auto) Eos % (Auto) Baso % (Auto) Neut # (Auto) Lymph # (Auto) [place] # (Auto) Eos # (Auto) Baso # (Auto) Immature Gran # (Auto) Absolute Nucleated RBC Immature Gran % Nucleated RBC % VBG pH 7.33 VBG pCO2 36 VBG pO2 37 VBG O2 Sat (Patti) 70 L VBG Base Excess -6 L Sodium 138 138 Potassium 4.9 D 4.5 Chloride 107 107 Carbon Dioxide 13.0 L* 15.3 L Anion Gap 18 H 16 BUN 50 H 55 H Creatinine 2.6 H 2.4 H Estim Creat Clear Calc 22.7 L 24.6 L eGFR 27 L 30 L BUN/Creatinine Ratio 19 23 H Glucose 111 H 110 H Calculated Osmolality 289 291 Lactic Acid 6.1 H* 6.2 H* 5.3 H* Calcium 10.4 10.0 Corrected Calcium 11.4 H 11.0 H Phosphorus 4.2 3.9 Magnesium Total Bilirubin 0.4 Direct Bilirubin 0.2 AST 298 H ALT 134 H Alkaline Phosphatase 908 H D Ammonia Total Protein 5.5 L Albumin 2.8 L 2.8 L Globulin Albumin/Globulin Ratio Ur Random Sodium Ur Random Potassium Ur Random Chloride Random Vancomycin 10/16/25 10/16/25 03:45 07:35 WBC 26.7 H RBC 3.78 L Hgb 10.4 L Hct 32.8 L MCV 87 MCH 27.5 MCHC 31.7 RDW Std Deviation 53.4 H Plt Count 343 D Neut % (Auto) 93 H Lymph % (Auto) 2 L [place] % (Auto) 4 Eos % (Auto) 0 Baso % (Auto) 0 Neut # (Auto) 24.7 H Lymph # (Auto) 0.6 L [place] # (Auto) 1.1 H Eos # (Auto) 0.0 Baso # (Auto) 0.0 Immature Gran # (Auto) 0.25 H Absolute Nucleated RBC 0.00 Immature Gran % 1 H Nucleated RBC % 0 VBG pH VBG pCO2 VBG pO2 VBG O2 Sat (Patti) VBG Base Excess Sodium 138 Potassium 4.4 Chloride 106 Carbon Dioxide 19.6 L Anion Gap 12 BUN 60 H Creatinine 2.4 H Estim Creat Clear Calc 24.6 L eGFR 30 L BUN/Creatinine Ratio 25 H Glucose 115 H Calculated Osmolality 293 Lactic Acid 3.0 H 2.9 H Calcium 10.1 Corrected Calcium 10.8 H Phosphorus 3.5 Magnesium 2.1 Total Bilirubin 0.5 Direct Bilirubin AST 217 H ALT 112 H Alkaline Phosphatase 778 H D Ammonia Total Protein 5.7 Albumin 3.1 L Globulin 2.6 Albumin/Globulin Ratio 1.2 Ur Random Sodium Ur Random Potassium Ur Random Chloride Random Vancomycin 13.5 ABG Interpretation ABG results: 10/14/25 10/16/25 16:34 00:24 ABG pH 7.41 ABG pCO2 32 ABG pO2 111 H ABG HCO3 20 ABG O2 Saturation 99 H ABG Base Excess -4 L VBG pH 7.33 VBG pCO2 36 VBG pO2 37 VBG Base Excess -6 L Quality Measures Quality Measures sepsis Current suspected stage: sepsis Possible source: pulmonary Blood cultures ordered: completed in ED Antibiotic ordered: Yes Assessment & Plan Assessment Current Active Medications: Generic Name Dose Route Start Last Admin Trade Name Freq PRN Reason Stop Dose Admin Acetaminophen 650 mg 10/14/25 15:17 Acetaminophen 325 Mg Tablet PO 11/13/25 15:16 Q6H PRN Fever >101.5 Carbamazepine 200 mg 10/15/25 22:00 10/16/25 05:14 Carbamazepine 200 Mg Tablet PO 11/14/25 21:59 200 mg TID SHADY Administration Citric Acid/Sodium Citrate 30 ml 10/15/25 21:00 10/16/25 08:07 Citric Acid/Sodium Citr 15 Ml Udc (Bicitra) PO 11/14/25 20:59 30 ml BID SHADY Administration Dextrose 25 ml 10/15/25 11:57 Dextrose 50%-Water Inj 50 Ml Syringe IV 11/14/25 11:56 Q15MIN PRN BG 50-70 responsive npo pt Dextrose 50 ml 10/15/25 11:57 Dextrose 50%-Water Inj 50 Ml Syringe IV 11/14/25 11:56 Q15MIN PRN BG <50 OR BG <70 & pt unresponsive Glucagon 1 mg 10/15/25 11:57 Glucagon Inj 1 Mg Vial IM Q15MIN PRN BG <70, and no IV access Heparin Sodium (Porcine) 5,000 unit 10/15/25 21:00 10/16/25 08:15 Heparin Sod Inj 5000 Unit/Ml Vial SC 10/29/25 20:59 5,000 unit Q12HR SHADY Administration Albumin Human 25 gm in 100 mls @ 0 mls/hr 10/14/25 14:26 Albuminex 25% Ivpb IV Q30MIN PRN To maintain SBP>90 Per Protocol Vancomycin/Sodium Chloride 100 mls @ 120 mls/hr 10/15/25 10:00 10/15/25 11:36 Vancomycin/Ns 500 Mg Ivpb IV 10/22/25 09:59 Infused Q24H SHADY Infusion Cefepime HCl 1 gm/ Sodium 50 mls @ 100 mls/hr 10/16/25 09:00 10/16/25 08:06 Chloride IV 10/23/25 08:59 100 mls/hr QDAY SHADY Administration Albumin Human 25 gm in 100 mls @ 100 mls/hr 10/16/25 06:00 10/16/25 06:22 Albuminex 25% Ivpb IV 10/19/25 05:59 Infused TID SHADY Infusion Lactated Ringer's 1,000 mls @ 125 mls/hr 10/16/25 06:15 10/16/25 06:22 Lactated Ringers IV 10/16/25 14:14 125 mls/hr .Q8H SHADY Administration Melatonin 3 mg 10/15/25 15:31 10/15/25 18:43 Melatonin 3 Mg Tablet PO 11/14/25 15:30 3 mg HS PRN Administration INSOMNIA Midodrine 5 mg 10/15/25 15:31 10/15/25 16:13 Midodrine 5 Mg Tablet PO 11/14/25 15:30 5 mg TID PRN Administration sbp < 110 Pantoprazole Sodium 40 mg 10/16/25 09:00 10/16/25 08:07 Pantoprazole 40 Mg Tablet PO 11/15/25 08:59 40 mg QDAY SHADY Administration Protocol Patiromer 8.4 gm 10/15/25 12:15 10/16/25 08:02 Patiromer Calcium 8.4 Gm Packet PO 11/14/25 12:14 Not Given QDAY SHADY Pharmacy Consult 1 each 10/15/25 09:00 Vancomycin Pharmacy To Dose 1 Each Each IV 11/14/25 08:59 QDAY PRN SEPSIS Plan Patient is a 64 year old male with PMH of invasive urothelial carcinoma (on chemotherapy) with bilateral nephrostomy tubes for hydronephrosis (recently replaced 09/24/25) who presents to ED for generalized weakness and lethargy. Nephrology consulted for hyperkalemia requiring emergent dialysis. #Hyperkalemia (resolved) #Hx CORINA on HD T/Sat (last session July 2025)- recovered #Bilateral nephrostomy tubes (replaced 08/2025) - Presenting with generalized weakness. - Follows Dr. Santana, previously on dialysis T/Sat but discontinued as renal function recovered/stabilized. - Potassium 6.5 --> 5.2 s/p hyperkalemia cocktail, unable to administer Kayexelate due to difficulty swallowing - EKG shows sinus tachycardia, no peaked T waves noted - S/p 5L IVF total - S/p HD catheter removal 10/15 Plan: - Continue IVF as patient is still hypovolemic and has decreased PO intake - Veltassa 8.4 g prn, give only if potassium greater than 5.4 - Follow up catheter culture - Strict INOs - Avoid nephrotoxic agents - Renally dose medications #Anion gap metabolic acidosis #Lactic acidosis in setting of sepsis (improving) - Initially presented with NAGMA which evolved into HAGMA likely secondary to worsening lactic acidosis - Bicarb 17.5 -> 13 -> 19.6 - Anion gap 18 - Lactic acid 6.2 (10/15) -> 3.0 Plan: - IVF as above - Bicitra 30 mL TID, plan to dc tomorrow if lactic acidosis improved - Follow AM renal panel tomorrow #Sepsis 2/2 complicated UTI vs dialysis catheter related sepsis #Urothelial carcinoma with bilateral hydronephrosis (on chemo) #Anemia of chronic disease #Choreiform vs diskinetic like movements - Management per primary team Thank you for your consultation, please do not hesitate to reach out if you have any question or concern Patient plan of care was discussed with the attending physician, Dr. Santana. Babs Matamoros DO, PGY-1 Attending Provider Attestation/Addendum patient seen and examined with resident physician Dr. Matamoros. Note reviewed, agree with findings and recommendations. Emergency dialysis ordered for hyperkalemia. However dialysis catheter despite alteplase was nonfunctioning. Could not get a temporary catheter through IR due to scheduling. In the interim spoke to primary team to continue with medical management. No EKG changes. Continue with IV fluids. Despite medical management if hyperkalemia persists will plan for dialysis tomorrow. Hopefully he will continue to improve with medical management and IV fluids. Regarding his sepsis he needs significant fluid resuscitation, broad-spectrum antibiotics. 10/15/2025 patient more alert and awake. Still having chorea. Potassium seems to be better. Urine output improving. Continue with IV fluids, broad-spectrum antibiotics. Spoke to Marisabel his -no need for dialysis. Will DC dialysis catheter due to potential source of infection and sepsis. 10/16/2025 patient seen in telemetry. BUN and creatinine, potassium improved. Right IJ dialysis catheter was removed. Continue with IV fluids/antibiotics. Pending cultures. Overall prognosis remains very poor. Comfort care seems to be appropriate. Team planning to get hospice involved. Metastatic bladder cancer. Bilateral nephrostomy tubes and Araiza catheter.
--- NOTE | 2025-10-16 08:54 | PD.RESPRO ---
Documentation for date of: 10/16/25 Exam Vital Signs Temp Pulse Resp BP Pulse Ox O2 Del Method O2 Flow Rate 97.2 F 90 18 106/61 96 Nasal Cannula 1 10/16/25 06:00 10/16/25 06:00 10/16/25 04:00 10/16/25 04:00 10/16/25 04:00 10/16/25 04:00 10/16/25 04:00 Objective Labs 10/16/25 03:45 10/16/25 03:45 Labs: Laboratory Results - last 24 hr 10/15/25 10/15/25 10/15/25 10:56 15:25 16:52 WBC RBC Hgb Hct MCV MCH MCHC RDW Std Deviation Plt Count Neut % (Auto) Lymph % (Auto) [place] % (Auto) Eos % (Auto) Baso % (Auto) Neut # (Auto) Lymph # (Auto) [place] # (Auto) Eos # (Auto) Baso # (Auto) Immature Gran # (Auto) Absolute Nucleated RBC Immature Gran % Nucleated RBC % VBG pH VBG pCO2 VBG pO2 VBG O2 Sat (Patti) VBG Base Excess Sodium 133 L 136 Potassium 5.7 H D 5.4 H Chloride 102 104 Carbon Dioxide 17.6 L 17.5 L Anion Gap 13 15 BUN 54 H 63 H Creatinine 2.6 H 2.8 H Estim Creat Clear Calc 22.7 L 21.1 L eGFR 27 L 25 L BUN/Creatinine Ratio 21 H 23 H Glucose 83 141 H D Calculated Osmolality 280 291 Lactic Acid 6.2 H* Calcium 11.6 H 10.5 Corrected Calcium 12.1 H 11.3 H Phosphorus 4.7 4.6 Magnesium Total Bilirubin Direct Bilirubin AST ALT Alkaline Phosphatase Ammonia 24 Total Protein Albumin 3.4 D 3.0 L Globulin Albumin/Globulin Ratio Ur Random Sodium 19.9 L Ur Random Potassium 54 Ur Random Chloride 21.5 L Random Vancomycin 10/15/25 10/15/25 10/16/25 18:59 21:49 00:24 WBC RBC Hgb Hct MCV MCH MCHC RDW Std Deviation Plt Count Neut % (Auto) Lymph % (Auto) [place] % (Auto) Eos % (Auto) Baso % (Auto) Neut # (Auto) Lymph # (Auto) [place] # (Auto) Eos # (Auto) Baso # (Auto) Immature Gran # (Auto) Absolute Nucleated RBC Immature Gran % Nucleated RBC % VBG pH 7.33 VBG pCO2 36 VBG pO2 37 VBG O2 Sat (Patti) 70 L VBG Base Excess -6 L Sodium 138 138 Potassium 4.9 D 4.5 Chloride 107 107 Carbon Dioxide 13.0 L* 15.3 L Anion Gap 18 H 16 BUN 50 H 55 H Creatinine 2.6 H 2.4 H Estim Creat Clear Calc 22.7 L 24.6 L eGFR 27 L 30 L BUN/Creatinine Ratio 19 23 H Glucose 111 H 110 H Calculated Osmolality 289 291 Lactic Acid 6.1 H* 6.2 H* 5.3 H* Calcium 10.4 10.0 Corrected Calcium 11.4 H 11.0 H Phosphorus 4.2 3.9 Magnesium Total Bilirubin 0.4 Direct Bilirubin 0.2 AST 298 H ALT 134 H Alkaline Phosphatase 908 H D Ammonia Total Protein 5.5 L Albumin 2.8 L 2.8 L Globulin Albumin/Globulin Ratio Ur Random Sodium Ur Random Potassium Ur Random Chloride Random Vancomycin 10/16/25 10/16/25 03:45 07:35 WBC 26.7 H RBC 3.78 L Hgb 10.4 L Hct 32.8 L MCV 87 MCH 27.5 MCHC 31.7 RDW Std Deviation 53.4 H Plt Count 343 D Neut % (Auto) 93 H Lymph % (Auto) 2 L [place] % (Auto) 4 Eos % (Auto) 0 Baso % (Auto) 0 Neut # (Auto) 24.7 H Lymph # (Auto) 0.6 L [place] # (Auto) 1.1 H Eos # (Auto) 0.0 Baso # (Auto) 0.0 Immature Gran # (Auto) 0.25 H Absolute Nucleated RBC 0.00 Immature Gran % 1 H Nucleated RBC % 0 VBG pH VBG pCO2 VBG pO2 VBG O2 Sat (Patti) VBG Base Excess Sodium 138 Potassium 4.4 Chloride 106 Carbon Dioxide 19.6 L Anion Gap 12 BUN 60 H Creatinine 2.4 H Estim Creat Clear Calc 24.6 L eGFR 30 L BUN/Creatinine Ratio 25 H Glucose 115 H Calculated Osmolality 293 Lactic Acid 3.0 H 2.9 H Calcium 10.1 Corrected Calcium 10.8 H Phosphorus 3.5 Magnesium 2.1 Total Bilirubin 0.5 Direct Bilirubin AST 217 H ALT 112 H Alkaline Phosphatase 778 H D Ammonia Total Protein 5.7 Albumin 3.1 L Globulin 2.6 Albumin/Globulin Ratio 1.2 Ur Random Sodium Ur Random Potassium Ur Random Chloride Random Vancomycin 13.5 ABG Interpretation ABG results: 10/14/25 10/16/25 16:34 00:24 ABG pH 7.41 ABG pCO2 32 ABG pO2 111 H ABG HCO3 20 ABG O2 Saturation 99 H ABG Base Excess -4 L VBG pH 7.33 VBG pCO2 36 VBG pO2 37 VBG Base Excess -6 L Quality Measures Quality Measures sepsis Possible source: pulmonary Blood cultures ordered: completed in ED Assessment & Plan Assessment Current Active Medications: Generic Name Dose Route Start Last Admin Trade Name Freq PRN Reason Stop Dose Admin Acetaminophen 650 mg 10/14/25 15:17 Acetaminophen 325 Mg Tablet PO 11/13/25 15:16 Q6H PRN Fever >101.5 Carbamazepine 200 mg 10/15/25 22:00 10/16/25 05:14 Carbamazepine 200 Mg Tablet PO 11/14/25 21:59 200 mg TID SHADY Administration Citric Acid/Sodium Citrate 30 ml 10/15/25 21:00 10/16/25 08:07 Citric Acid/Sodium Citr 15 Ml Udc (Bicitra) PO 11/14/25 20:59 30 ml BID SHADY Administration Dextrose 25 ml 10/15/25 11:57 Dextrose 50%-Water Inj 50 Ml Syringe IV 11/14/25 11:56 Q15MIN PRN BG 50-70 responsive npo pt Dextrose 50 ml 10/15/25 11:57 Dextrose 50%-Water Inj 50 Ml Syringe IV 11/14/25 11:56 Q15MIN PRN BG <50 OR BG <70 & pt unresponsive Glucagon 1 mg 10/15/25 11:57 Glucagon Inj 1 Mg Vial IM Q15MIN PRN BG <70, and no IV access Heparin Sodium (Porcine) 5,000 unit 10/15/25 21:00 10/16/25 08:15 Heparin Sod Inj 5000 Unit/Ml Vial SC 10/29/25 20:59 5,000 unit Q12HR SHADY Administration Albumin Human 25 gm in 100 mls @ 0 mls/hr 10/14/25 14:26 Albuminex 25% Ivpb IV Q30MIN PRN To maintain SBP>90 Per Protocol Vancomycin/Sodium Chloride 100 mls @ 120 mls/hr 10/15/25 10:00 10/15/25 11:36 Vancomycin/Ns 500 Mg Ivpb IV 10/22/25 09:59 Infused Q24H SHADY Infusion Cefepime HCl 1 gm/ Sodium 50 mls @ 100 mls/hr 10/16/25 09:00 10/16/25 08:06 Chloride IV 10/23/25 08:59 100 mls/hr QDAY SHADY Administration Albumin Human 25 gm in 100 mls @ 100 mls/hr 10/16/25 06:00 10/16/25 06:22 Albuminex 25% Ivpb IV 10/19/25 05:59 Infused TID SHADY Infusion Lactated Ringer's 1,000 mls @ 125 mls/hr 10/16/25 06:15 10/16/25 06:22 Lactated Ringers IV 10/16/25 14:14 125 mls/hr .Q8H SHADY Administration Melatonin 3 mg 10/15/25 15:31 10/15/25 18:43 Melatonin 3 Mg Tablet PO 11/14/25 15:30 3 mg HS PRN Administration INSOMNIA Midodrine 5 mg 10/15/25 15:31 10/15/25 16:13 Midodrine 5 Mg Tablet PO 11/14/25 15:30 5 mg TID PRN Administration sbp < 110 Pantoprazole Sodium 40 mg 10/16/25 09:00 10/16/25 08:07 Pantoprazole 40 Mg Tablet PO 11/15/25 08:59 40 mg QDAY SHADY Administration Protocol Patiromer 8.4 gm 10/16/25 08:23 Patiromer Calcium 8.4 Gm Packet PO 11/15/25 08:21 PRN PRN if K > 5.4 Pharmacy Consult 1 each 10/15/25 09:00 Vancomycin Pharmacy To Dose 1 Each Each IV 11/14/25 08:59 QDAY PRN SEPSIS
--- NOTE | 2025-10-16 09:14 | XR_ITS ---
EXAMINATION: AP chest single view TECHNIQUE: AP portable semiupright chest single view Date and time: October 16, 2025, 0951 hours, comparison October 14, 2025 INDICATIONS: Shortness of breath generalized weakness today. FINDINGS: Bibasilar pneumonia. Normal heart size Prominent osteopenia IMPRESSION: Significant bibasilar pneumonia
[2025-10-16] MEDS: VANCOMYCIN/NS 500 MG IVPB 100 ML 120 MG IV (10:24)
--- NOTE | 2025-10-16 12:36 | ESCONSULT_ITS ---
HPI Data of Consult Requesting Physician: Lachelle Josue MD Primary Care Provider: Deborah Dean PA-C Consult Narrative Reason for consult: Stage IV bladder cancer History of present illness: Patient with bladder CA initially seen at the cancer center 3 months ago, seen by Dr. Melchor, medical oncologist. At the time patient appeared to have regional mets and biopsy was planned along with ordering PET scan for staging. Admitted with significant decline, with stating that he cannot walk for the past several days and choreform movements which has gotten worse, along with elevated white count fever lactic acidosis. Abdominal pelvic scan revealed T11 osteolytic lesions which appear to extend into the spinal canal. There was marked thickening of the bladder wall. There was extensive abdominal pelvic lymphadenopathy and multiple hepatic mets. Bilateral effusions atelectasis and/or pneumonia at the lung bases noted. Chest x-ray showed significant bibasilar pneumonia. Patient referred for oncological consultation. Urothelial carcinoma bilateral hydronephrosis chronic kidney disease. cc:: cc: Lachelle Josue MD Past Medical History Social History SOCIAL: Patient has been living at home with ; unable to walk for the past few days. Meds Home Medications and Allergies Allergies Allergy/AdvReac Type Severity Reaction Status Date / Time No Known Allergies Allergy Verified 09/23/25 17:07 Exam Vital Signs Temp Pulse Resp BP Pulse Ox O2 Del Method O2 Flow Rate 97.4 F 89 24 H 92/63 100 Nasal Cannula 1 10/16/25 12:00 10/16/25 12:00 10/16/25 12:00 10/16/25 12:00 10/16/25 12:00 10/16/25 12:00 10/16/25 12:00 Narrative Exam Appears uncomfortable with spontaneous choreiform movements. Results Labs 10/16/25 03:45 10/16/25 03:45 Labs: Short CBC 10/16/25 Range/Units 03:45 WBC 26.7 H (3.8-10.6) Thou/mm3 Hgb 10.4 L (13.5-16.0) g/dL Hct 32.8 L (41.0-53.0) % Plt Count 343 D (140-440) Thou/mm3 BMP 10/15/25 10/15/25 10/16/25 16:52 21:49 00:24 Sodium 136 138 138 Potassium 5.4 H 4.9 D 4.5 Chloride 104 107 107 Carbon Dioxide 17.5 L 13.0 L* 15.3 L BUN 63 H 50 H 55 H Creatinine 2.8 H 2.6 H 2.4 H Glucose 141 H D 111 H 110 H Calcium 10.5 10.4 10.0 10/16/25 03:45 Sodium 138 Potassium 4.4 Chloride 106 Carbon Dioxide 19.6 L BUN 60 H Creatinine 2.4 H Glucose 115 H Calcium 10.1 Liver Function 10/15/25 10/15/25 10/16/25 Range/Units 16:52 21:49 00:24 Total Bilirubin 0.4 (0.3-1.2) mg/dL Direct Bilirubin 0.2 (0.0-0.3) mg/dL AST 298 H (0-34) U/L ALT 134 H (10-49) U/L Alkaline Phosphatase 908 H D (46-116) U/L Albumin 3.0 L 2.8 L 2.8 L (3.4-4.8) gm/dL 10/16/25 Range/Units 03:45 Total Bilirubin 0.5 (0.3-1.2) mg/dL Direct Bilirubin (0.0-0.3) mg/dL AST 217 H (0-34) U/L ALT 112 H (10-49) U/L Alkaline Phosphatase 778 H D (46-116) U/L Albumin 3.1 L (3.4-4.8) gm/dL ABG Interpretation ABG results: 10/14/25 10/16/25 16:34 00:24 ABG pH 7.41 ABG pCO2 32 ABG pO2 111 H ABG HCO3 20 ABG O2 Saturation 99 H ABG Base Excess -4 L VBG pH 7.33 VBG pCO2 36 VBG pO2 37 VBG Base Excess -6 L Assessment and Plan Additional Assessment & Plan Additional Plan: 1. Stage IV bladder CA with pelvic abdominal mets, likely lung mets. 2. Lactic acidosis pneumonia choreiform movements, likely also has a spinal cord compression T11 site, unable to walk. 4. In poor condition PPS 20% or less, unlikely to benefit from cancer treatments. 5. . Spoke with regarding the probability of having just a few days or weeks to live. 6. will talk with hospice market survey representative about long term placement with hospice support.
[2025-10-16] MEDS: MIDODRINE 5 MG TABLET 10 MG PO (13:32)
--- NOTE | 2025-10-16 13:41 | PC.SS ---
SS received visit from mingo with [facility], who spoke to pt and Marisabel. They are interested in going to SNF with Hospice. SS updated Theodore ZAFAR who will submit referral fro both Hospice and SNF.
--- NOTE | 2025-10-16 13:49 | PD.RESDS ---
Planned Discharge Date 10/16/25 DS: Providers Provider Date of admission: 10/14/25 15:21 Primary care physician: Deborah Dean PA-C Admitting Provider: Lachelle Josue MD Attending Provider on Admission: Lachelle Josue MD Consults: 10/14/25 17:13 Consult to Nephrology Routine Comment: Consulting Provider: Ronel Santana 10/14/25 18:29 PT [Referral Physical Therapy] Routine Comment: Physician Instructions: Referral Speech Therapy Routine Comment: Swallow eval please. 10/15/25 01:27 Referral Wound Care Routine Comment: 10/16/25 11:59 Consult to Oncology Routine Comment: Consulting Provider: Amanuel Carrion Attending Provider on DC: Lachelle Josue MD Discharging Provider: Anshul Kirk DO Anticipated date of discharge: 10/16/25 DS: Diagnosis Problem List Completed Was Problem List Reviewed/Reconciled?: Yes Hospital Course Hospital Course Hospital course: Mr. Meade At this time, patient is medically and physically stable for discharge for home. All questions and concerns addressed, plan of care discussed with patient, return precautions given. Diagnosis: # Discharge Plan: Follow up with primary care physician within 1 week of discharge Continue to follow up with your Oncologist with regards to your chemotherapy Instructions have been explained to the patient with regards to their medications and how to take them. Patient was able to explain back to physician and nursing staff how to take their medications. Patient expressed understanding with instructions. Continue to take the rest of your medications as prescribed by your primary care physician. Patient has been explained that should any symptoms recur or worsen patient is instructed to return to the Emergency Department. Case discussed with my senior resident Dr. Jenkins Case discussed with my attending Dr. Joselo Kirk DO PGY 1 Status at Discharge Overall status at discharge: patient is not back to baseline (Hospice) Time Spent with Patient Time attestation: Total time spent providing and/or coordinating discharge services: Time spent: Greater than 30 minutes Exam Vital Signs Temp Pulse Resp BP Pulse Ox O2 Del Method O2 Flow Rate 97.4 F 90 24 H 103/59 L 100 Nasal Cannula 1 10/16/25 12:00 10/16/25 13:32 10/16/25 12:00 10/16/25 13:32 10/16/25 12:00 10/16/25 12:00 10/16/25 12:00 Discharge Plan Plan Patient Disposition: Home w/HOSPICE Care Plan Goals: Follow up with primary care physician within 1 week of discharge Instructions have been explained to the patient with regards to their medications and how to take them. Patient was able to explain back to physician and nursing staff how to take their medications. Patient expressed understanding with instructions. Continue to take the rest of your medications as prescribed by your primary care physician. Patient has been explained that should any symptoms recur or worsen patient is instructed to return to the Emergency Department. Prescriptions/Referrals Prescriptions/Med Rec: Continued melatonin 3 mg Tablet 3 mg PO HS PRN (Reason: insomnia) Qty: 90 0RF midodrine 5 mg Tablet 5 mg PO TID PRN (Reason: sbp < 110) Qty: 30 0RF pantoprazole 40 mg Tablet,Delayed Release (Dr/Ec) 40 mg PO QDAY Qty: 30 0RF carbamazepine 200 mg tablet 200 mg PO TID Qty: 60 0RF Referrals: Deborah Dean PA-C [Primary Care Provider] Patient/Caregiver Discharge Instructions Print Language: Nepali Stand Alone Forms: Maren Award Info., Patient Portal Info Letter Discharge Order Discharge Orders: Discharge (Routine); Ordered 10/16/25 Ordered By: Uziel Hudson
--- NOTE | 2025-10-16 13:54 | PC.SS ---
TURNSTILE COLLECTOR confirmed with patient's spouse discharge plan to transition patient to SNF with hospice. Preferred hospice agency [facility]. No preferred SNF identified.
--- NOTE | 2025-10-16 14:34 | PC.SS ---
SNF referral submitted on [facility]. Awaiting responses. Patient to d/c with [facility].
--- NOTE | 2025-10-16 14:49 | PD.RESPRO ---
Documentation for date of: 10/16/25 Subjective Subjective Interval history: Mr. Meade is a 64M with history of invasive urothelial carcinoma, bilateral hydronephrosis with bilateral nephrostomy tube and chronic viveros catheter that drains urine, CKD IIIb, and stable choreform movements presents for generalized weakness. Per EMS, patient was hypotensive and hot to touch on scene at home. Upon chart review, he was admitted recently on 09/24/25 for UTI and received antibiotics. Patient follows Dr. Santana outpatient, and does not require dialysis. In the ED, he received sepsis bolus with empiric antibiotics. Hyperkelmia treated with medical management. He was admitted to telemetry for sepsis. 10/15/25: NAOE, VSS, afebrile. WBC 28.7 today from 27.3, switched from vanco + zosyn to cefepime today. TDC was removed today, nephrology has no plan for dialysis at this time. K 5.7, continue medical management per nephrology recs. Nephrostomy insertion site examined today, they appeared dry, clean, intact without drainage or erythema. CT head returned unremarkable, negative for mass or acute hemorrhage. Heparin 5000U SQ BID started today for DVT prophylaxis given patient's hx of cancer. Will continue to monitor closely, Bcx NGTD. Pending Ucx. 10/15/25 PM: Lactate returned 6.2, 1 L NaCl 0.9% bolus ordered. BP 88/55. Echo from 05/23/25 showed normal LV size and function. LVEF 50~55%. 10/16/25: Overnight, patient's lactate continues to be elevated with stable BP (hypotensive at baseline), Exam Vital Signs Temp Pulse Resp BP Pulse Ox O2 Del Method O2 Flow Rate 97.4 F 90 24 H 103/59 L 100 Nasal Cannula 1 10/16/25 12:00 10/16/25 13:32 10/16/25 12:00 10/16/25 13:32 10/16/25 12:00 10/16/25 12:00 10/16/25 12:00 Narrative Exam General: A/o x 0, uncomprehensive speech. Cachexia. HEENT: Normocephalic, atraumatic, mucous membranes dry. Heart: Tachycardic. No M/R/G Lungs: Diminished lung sounds, no increase WOB, but shallow breathing Abdomen: Soft, nondistended, nontender. No guarding or rebound tenderness. Nephrostomy sites examined, appears d/c/i without erythema or drainage. Neurologic: Weak, unable to follow command. 1/5 strength in UE and LE. Unable to assess CN function. Extremities: No pitting edema in lower extremities. Loss of muscle tone. Skin: Petechiae to LLE. Bilateral LE scartch suh. Abrasions to left anterior chest wall. Objective Labs 10/16/25 03:45 10/16/25 03:45 Labs: Laboratory Results - last 24 hr 10/15/25 10/15/25 10/15/25 15:25 16:52 18:59 WBC RBC Hgb Hct MCV MCH MCHC RDW Std Deviation Plt Count Neut % (Auto) Lymph % (Auto) [place] % (Auto) Eos % (Auto) Baso % (Auto) Neut # (Auto) Lymph # (Auto) [place] # (Auto) Eos # (Auto) Baso # (Auto) Immature Gran # (Auto) Absolute Nucleated RBC Immature Gran % Nucleated RBC % VBG pH VBG pCO2 VBG pO2 VBG O2 Sat (Patti) VBG Base Excess Sodium 136 Potassium 5.4 H Chloride 104 Carbon Dioxide 17.5 L Anion Gap 15 BUN 63 H Creatinine 2.8 H Estim Creat Clear Calc 21.1 L eGFR 25 L BUN/Creatinine Ratio 23 H Glucose 141 H D Calculated Osmolality 291 Lactic Acid 6.2 H* 6.1 H* Calcium 10.5 Corrected Calcium 11.3 H Phosphorus 4.6 Magnesium Total Bilirubin Direct Bilirubin AST ALT Alkaline Phosphatase Total Protein Albumin 3.0 L Globulin Albumin/Globulin Ratio Random Vancomycin 10/15/25 10/16/25 10/16/25 21:49 00:24 03:45 WBC 26.7 H RBC 3.78 L Hgb 10.4 L Hct 32.8 L MCV 87 MCH 27.5 MCHC 31.7 RDW Std Deviation 53.4 H Plt Count 343 D Neut % (Auto) 93 H Lymph % (Auto) 2 L [place] % (Auto) 4 Eos % (Auto) 0 Baso % (Auto) 0 Neut # (Auto) 24.7 H Lymph # (Auto) 0.6 L [place] # (Auto) 1.1 H Eos # (Auto) 0.0 Baso # (Auto) 0.0 Immature Gran # (Auto) 0.25 H Absolute Nucleated RBC 0.00 Immature Gran % 1 H Nucleated RBC % 0 VBG pH 7.33 VBG pCO2 36 VBG pO2 37 VBG O2 Sat (Patti) 70 L VBG Base Excess -6 L Sodium 138 138 138 Potassium 4.9 D 4.5 4.4 Chloride 107 107 106 Carbon Dioxide 13.0 L* 15.3 L 19.6 L Anion Gap 18 H 16 12 BUN 50 H 55 H 60 H Creatinine 2.6 H 2.4 H 2.4 H Estim Creat Clear Calc 22.7 L 24.6 L 24.6 L eGFR 27 L 30 L 30 L BUN/Creatinine Ratio 19 23 H 25 H Glucose 111 H 110 H 115 H Calculated Osmolality 289 291 293 Lactic Acid 6.2 H* 5.3 H* 3.0 H Calcium 10.4 10.0 10.1 Corrected Calcium 11.4 H 11.0 H 10.8 H Phosphorus 4.2 3.9 3.5 Magnesium 2.1 Total Bilirubin 0.4 0.5 Direct Bilirubin 0.2 AST 298 H 217 H ALT 134 H 112 H Alkaline Phosphatase 908 H D 778 H D Total Protein 5.5 L 5.7 Albumin 2.8 L 2.8 L 3.1 L Globulin 2.6 Albumin/Globulin Ratio 1.2 Random Vancomycin 13.5 10/16/25 07:35 WBC RBC Hgb Hct MCV MCH MCHC RDW Std Deviation Plt Count Neut % (Auto) Lymph % (Auto) [place] % (Auto) Eos % (Auto) Baso % (Auto) Neut # (Auto) Lymph # (Auto) [place] # (Auto) Eos # (Auto) Baso # (Auto) Immature Gran # (Auto) Absolute Nucleated RBC Immature Gran % Nucleated RBC % VBG pH VBG pCO2 VBG pO2 VBG O2 Sat (Patti) VBG Base Excess Sodium Potassium Chloride Carbon Dioxide Anion Gap BUN Creatinine Estim Creat Clear Calc eGFR BUN/Creatinine Ratio Glucose Calculated Osmolality Lactic Acid 2.9 H Calcium Corrected Calcium Phosphorus Magnesium Total Bilirubin Direct Bilirubin AST ALT Alkaline Phosphatase Total Protein Albumin Globulin Albumin/Globulin Ratio Random Vancomycin ABG Interpretation ABG results: 10/14/25 10/16/25 16:34 00:24 ABG pH 7.41 ABG pCO2 32 ABG pO2 111 H ABG HCO3 20 ABG O2 Saturation 99 H ABG Base Excess -4 L VBG pH 7.33 VBG pCO2 36 VBG pO2 37 VBG Base Excess -6 L Quality Measures Quality Measures sepsis Possible source: pulmonary Blood cultures ordered: completed in ED Assessment & Plan Assessment Current Active Medications: Generic Name Dose Route Start Last Admin Trade Name Freq PRN Reason Stop Dose Admin Acetaminophen 650 mg 10/14/25 15:17 Acetaminophen 325 Mg Tablet PO 11/13/25 15:16 Q6H PRN Fever >101.5 Carbamazepine 200 mg 10/15/25 22:00 10/16/25 14:31 Carbamazepine 200 Mg Tablet PO 11/14/25 21:59 200 mg TID SHADY Administration Citric Acid/Sodium Citrate 30 ml 10/15/25 21:00 10/16/25 08:07 Citric Acid/Sodium Citr 15 Ml Udc (Bicitra) PO 11/14/25 20:59 30 ml BID SHADY Administration Dextrose 25 ml 10/15/25 11:57 Dextrose 50%-Water Inj 50 Ml Syringe IV 11/14/25 11:56 Q15MIN PRN BG 50-70 responsive npo pt Dextrose 50 ml 10/15/25 11:57 Dextrose 50%-Water Inj 50 Ml Syringe IV 11/14/25 11:56 Q15MIN PRN BG <50 OR BG <70 & pt unresponsive Glucagon 1 mg 10/15/25 11:57 Glucagon Inj 1 Mg Vial IM Q15MIN PRN BG <70, and no IV access Heparin Sodium (Porcine) 5,000 unit 10/15/25 21:00 10/16/25 08:15 Heparin Sod Inj 5000 Unit/Ml Vial SC 10/29/25 20:59 5,000 unit Q12HR SHADY Administration Albumin Human 25 gm in 100 mls @ 0 mls/hr 10/14/25 14:26 Albuminex 25% Ivpb IV Q30MIN PRN To maintain SBP>90 Per Protocol Vancomycin/Sodium Chloride 100 mls @ 120 mls/hr 10/15/25 10:00 10/16/25 10:24 Vancomycin/Ns 500 Mg Ivpb IV 10/22/25 09:59 120 mls/hr Q24H SHADY Administration Cefepime HCl 1 gm/ Sodium 50 mls @ 100 mls/hr 10/16/25 09:00 10/16/25 08:06 Chloride IV 10/23/25 08:59 100 mls/hr QDAY SHADY Administration Albumin Human 25 gm in 100 mls @ 100 mls/hr 10/16/25 06:00 10/16/25 13:32 Albuminex 25% Ivpb IV 10/19/25 05:59 100 mls/hr TID SHADY Administration Melatonin 3 mg 10/15/25 15:31 10/15/25 18:43 Melatonin 3 Mg Tablet PO 11/14/25 15:30 3 mg HS PRN Administration INSOMNIA Midodrine 10 mg 10/16/25 14:00 10/16/25 13:32 Midodrine 5 Mg Tablet PO 11/15/25 13:59 10 mg TID SHADY Administration Pantoprazole Sodium 40 mg 10/16/25 09:00 10/16/25 08:07 Pantoprazole 40 Mg Tablet PO 11/15/25 08:59 40 mg QDAY SHADY Administration Protocol Patiromer 8.4 gm 10/16/25 08:23 Patiromer Calcium 8.4 Gm Packet PO 11/15/25 08:21 PRN PRN if K > 5.4 Pharmacy Consult 1 each 10/15/25 09:00 Vancomycin Pharmacy To Dose 1 Each Each IV 11/14/25 08:59 QDAY PRN SEPSIS Plan Mr. Meade is a 64M with history of invasive urothelial carcinoma, bilateral hydronephrosis with bilateral nephrostomy tube and chronic viveros catheter, CKD IIIb, and stable choreform movements presents for generalized weakness. He was admitted for sepsis. #Sepsis #Lactic acidosis #Leukocytosis #Fever #Hypotension #Pneumonia Recently admitted on 09/24/25 for UTI. Received antibiotics. Received 1L NaCl 0.9% in the ED. Zosyn + Vanco x 1. CXR 10/14/25 showed diffuse left lung pneumonia and right base pneumonia. - Switch to Cefepime (10/16 ~ 10/23) from Zosyn and vanco - Pending Ucx - Bcx NGTD - NaCl 0.9% @ 75ml/hr x 1 (10/14/25) - Continue home midodrine 5mg PO TID PRN if SBP < 110. #Generalized weakness #Acute encephlopathy #Choreform movements A/0 x 1, GCS 10 in ED. Likely due to hyperkalemia and sepsis. Fell 2 day prior to admission, no LOC, but did land on his head. Choreform movements at baseline. - CT head negative for acute hemorrhage, mass effect or midine shift. - Ammonia level 24. - PT consult - Speech consult for official swallow eval. --> recs Dysphagia 2 diet - Continue home carbamazepine #CORINA on CKD IIIb #Hyperkalemia #Hyponatremia #Elevated Alk Phos #Hypercalcemia TDC occluded despite ateplase flush. Medical management for now. - TDC removed, no plan for dialysis per nephrology. - hyperK cocktail in ED x 1 - hyperK cocktail x 1 (10/14/25) - hyperK cocktail x 1 (10/15/25) - Patiromer 8.4gm PO QD. - Strict I/Os - monitor urine output - daily labs, monitor chemistry - renal dose med, avoid nephrotoxin - no recent contrast or offending mediations - Nephrology consulted, appreciate recs --> Started Bicitra 30mL BID. #Urothelial carcinoma #Bilateral hydronephrosis S/p bilateral nephrostomy tube #Chronic indwelling catheter - chronic medical problem - continue to monitor for urine out in viveros bags and nephrostomy bag. - outpatient follow up Health maintenance Dispo: Hospice DVT prophylaxis: Heparin SQ BID GI prophylaxis: Protonix 40mg QD Antibiotics: Cefepime Bowel Regimen: N/A Diet: Dysphagia 2 diet Lines: Peripheral IV. Chronic indwelling cath. Bilateral nephrostomy tube. Code status: Full code Case discussed with my senior resident Dr. Jenkins Case discussed with my attending Dr. Joselo Kirk, DO PGY 1
--- NOTE | 2025-10-16 15:31 | PC.SS ---
CNC SERVICE TECHNICIAN informed patient's spouse that [facility] has accepted the patient for placement with hospice. [facility] CNC SERVICE TECHNICIAN updated resident and bedside nurse.
--- NOTE | 2025-10-16 15:32 | ESDS_ITS ---
<Statement entered by Lachelle Josue MD - 10/24/25 09:15> I reviewed above note and agree with findings and plans. I have also personally examined the patient with medicine team and went over assessment and plan with medical team including international flight attendant and resident physician. <Statement entered by Uziel Hudson MD - 10/16/25 17:47> Patient was examined and case was reviewed with team including attending physician. Note reviewed, I agree with most of its contents and agree with the patient's care as documented by Dr. Reagan Hudson MD PGY-2 Planned Discharge Date 10/16/25 DS: Providers Provider Date of admission: 10/14/25 15:21 Primary care physician: Deborah Dean PA-C Admitting Provider: Lachelle Josue MD Attending Provider on Admission: Lachelle Josue MD Consults: 10/14/25 17:13 Consult to Nephrology Routine Comment: Consulting Provider: Ronel Santana 10/14/25 18:29 PT [Referral Physical Therapy] Routine Comment: Physician Instructions: Referral Speech Therapy Routine Comment: Swallow eval please. 10/15/25 01:27 Referral Wound Care Routine Comment: 10/16/25 11:59 Consult to Oncology Routine Comment: Consulting Provider: Amanuel Carrion 10/16/25 14:14 Referral Hospice Stat Comment: Attending Provider on DC: Lachelle Josue MD Discharging Provider: Anshul Kirk DO Anticipated date of discharge: 10/16/25 DS: Diagnosis Problem List Completed Was Problem List Reviewed/Reconciled?: Yes Hospital Course Hospital Course Hospital course: Mr. Meade is a 64M with history of invasive urothelial carcinoma, bilateral hydronephrosis with bilateral nephrostomy tube and chronic viveros catheter that drains urine, CKD IIIb, and stable choreform movements presents for generalized weakness on 10/14/25. Per EMS, patient was hypotensive and hot to touch on scene at home. Upon chart review, he was admitted recently on 09/24/25 for UTI and received antibiotics. Patient was also seen in April 2025 where he was found to have invasive urothelial carcinoma with glandular differentiation. Since discharge, patient was advised to follow up with oncology for treatment options, however, required PET scan and IR referral for biopsy of the pelvic lymph node to evaluate for metastatic disease. Per , due to patient's choreform movements, a PET scan attempt was unsuccesful, and they are in the process to get an appointment for lymph node biopsy outpatient. In the ED, he was found to have elevated WBC, he received sepsis bolus with empiric antibiotics. Hyperkelmia treated with medical management. He was admitted to telemetry for sepsis. On day 1 of admission, WBC continued to be elevated despite empiric antibiotics, the regiment was broadened to cefepime. He continued to receive medical management for his hyperkalemia per nephrology recommendation. His nephrostomy insertion site examined that day, and appeared dry, clean, intact wi thout drainage or erythema. His blood cultures did not grow any bacteria. Urine culture grew mixed candi, likely contaminated. His lactate was found to be elevated later that evening, one liter NaCl 0.9% was given at that time with continuation of his home midodrine. On day 2 of admission, patient's lactate continued to be elevated overnight with stable BP (hypotensive at baseline), midodrine 5mg x1, albumin 25gm x 2, and 2 L LR bolus given. Repeat lactate 3.0. CT abdomen revealed multiple hepatic metastases with extensive abdominal and pelvic lymphadenopathy. Multiple osteolytic lesions were also noted, appeared to extend in the spinal canal. Dr. Carrion, oncologist, was consulted, suggested patient had Stage IV bladder cancer with pelvic, abdominal metastasis, and likely lung metastasis. Patient was in poor condition, palliative performance scale 20% of less, unlikely to benefit from cancer treatment. Goal of care discussed at bedside with patient's son and . During the discussion, the focus was on aligning the care plan with the patient?s values and preferences. The patient's expressed a strong desire to prioritize comfort and think that is what the patient would have wanted. The patient's stated that they would prefer not to undergo further life-prolonging treatments such as mechanical ventilation or CPR with the transition to hospice, and expressed a clear preference for comfort-focused care, including pain management and symptom control. At this time, patient's code status has changed to DNR. [facility] hospice service was consulted. At this time, patient is medically and physically stable for discharge to SNF for hospice. All questions and concerns addressed, plan of care discussed with family. Diagnosis: #Sepsis #Lactic acidosis #Leukocytosis #Fever #Hypotension #Pneumonia #Generalized weakness #Acute encephlopathy #Choreform movements #CORINA on CKD IIIb #Hyperkalemia #Hyponatremia #Elevated Alk Phos #Hypercalcemia #Urothelial carcinoma #Bilateral hydronephrosis S/p bilateral nephrostomy tube #Chronic indwelling catheter Discharge Plan: Nursing facility for hospice. Instructions have been explained to the patient and patient's family with regards to their medications and how to take them. Patient was able to explain back to physician and nursing staff how to take their medications. Patient expressed understanding with instructions. Continue to take the rest of your medications as prescribed by your primary care physician. Patient has been explained that should any symptoms recur or worsen patient is instructed to return to the Emergency Department. Case discussed with my senior resident Dr. Jenkins Case discussed with my attending Dr. Joselo Kirk DO PGY 1 Status at Discharge Overall status at discharge: patient is not back to baseline (Hospice) Time Spent with Patient Time attestation: Total time spent providing and/or coordinating discharge services: Time spent: Greater than 30 minutes Exam Vital Signs Temp Pulse Resp BP Pulse Ox O2 Del Method O2 Flow Rate 97.4 F 90 24 H 103/59 L 100 Nasal Cannula 1 10/16/25 12:00 10/16/25 13:32 10/16/25 12:00 10/16/25 13:32 10/16/25 12:00 10/16/25 12:00 10/16/25 12:00 Narrative Exam General: A/o x 0, uncomprehensive speech. Cachexia. HEENT: Normocephalic, atraumatic, mucous membranes dry. Heart: Tachycardic. No M/R/G Lungs: Diminished lung sounds, no increase WOB, but shallow breathing Abdomen: Soft, nondistended, nontender. No guarding or rebound tenderness. Bilateral nephrostomy tubes intact. Neurologic: Weak, unable to follow command. 1/5 strength in UE and LE. Unable to assess CN function. Extremities: No pitting edema in lower extremities. Loss of muscle tone. Skin: Petechiae to LLE. Bilateral LE scartch suh. Abrasions to left anterior chest wall. Discharge Plan Plan Patient Disposition: Home w/HOSPICE Patient condition on transfer: Stable Care Plan Goals: Follow up with primary care physician within 1 week of discharge Instructions have been explained to the patient with regards to their medications and how to take them. Patient was able to explain back to physician and nursing staff how to take their medications. Patient expressed understanding with instructions. Continue to take the rest of your medications as prescribed by your primary care physician. Patient has been explained that should any symptoms recur or worsen patient is instructed to return to the Emergency Department. Prescriptions/Referrals Prescriptions/Med Rec: Continued melatonin 3 mg Tablet 3 mg PO HS PRN (Reason: insomnia) Qty: 90 0RF midodrine 5 mg Tablet 5 mg PO TID PRN (Reason: sbp < 110) Qty: 30 0RF pantoprazole 40 mg Tablet,Delayed Release (Dr/Ec) 40 mg PO QDAY Qty: 30 0RF carbamazepine 200 mg tablet 200 mg PO TID Qty: 60 0RF Referrals: Deborah Dean PA-C [Primary Care Provider] Patient/Caregiver Discharge Instructions Print Language: Amharic Stand Alone Forms: Maren Award Info., Patient Portal Info Letter Discharge Order Discharge Orders: Discharge (Routine); Ordered 10/16/25 Ordered By: Uziel Hudson Quality Discharge Quality Measures none
--- NOTE | 2025-10-16 16:00 | PC.SS ---
Transport scheduled for 06:00 pm brigitte. SHOW CARD LETTERER notified bedsiden nurse, patient's family, SNF and [facility] staff.
--- NOTE | 2025-10-16 16:48 | PC.SS ---
PASSR completed. Level I criteria met. PASSR submitted to [facility] via [employer] Exchange.
== END 2025-10-16 19:10 | disposition hospice, home (50) | DRG 139 ==
LOC: SERX 15:47 → SERHOLD 15:48 → S2NX 22:49
PROVIDERS: Student in an Organized Health Care Education/Training Program; Admitting Provider Internal Medicine; Emergency Provider Emergency Medicine; PCP Physician Assistant; Visit Provider Internal Medicine
DX: J18.9 Pneumonia, unspecified organism (principal); N13.6 Pyonephrosis; E87.5 Hyperkalemia; N18.32 Chronic kidney disease, stage 3b; I95.9 Hypotension, unspecified; G93.40 Encephalopathy, unspecified; E87.1 Hypo-osmolality and hyponatremia; D64.81 Anemia due to antineoplastic chemotherapy; E83.52 Hypercalcemia; C68.9 Malignant neoplasm of urinary organ, unspecified; S20.312A Abrasion of left front wall of thorax, initial encounter; D63.1 Anemia in chronic kidney disease; R64 Cachexia; Z93.6 Other artificial openings of urinary tract status; Z68.1 Body mass index [BMI] 19.9 or less, adult; J11.00 Influenza due to unidentified influenza virus with unspecified type of pneumonia; C78.7 Secondary malignant neoplasm of liver and intrahepatic bile duct; C67.9 Malignant neoplasm of bladder, unspecified; G25.5 Other chorea; E87.20 Acidosis, unspecified; T45.1X5A Adverse effect of antineoplastic and immunosuppressive drugs, initial encounter; R13.10 Dysphagia, unspecified; W19.XXXA Unspecified fall, initial encounter; Z51.5 Encounter for palliative care; Z66 Do not resuscitate; Z87.891 Personal history of nicotine dependence
CPT/HCPCS: 36415; 36600; 70450; 71045; 74176; 77001; 80053; 80061; 80069; 80076; 80202; 81001; 82140; 82436; 82803; 83605; 83690; 83735; 83880; 84100; 84133; 84145; 84300; 84484; 85025; 85610; 85730; 87040; 87070; 87077; 87081; 87086; 87186; 87205; 87502; 87635; 92610; 93005; 93930; 93970; 96365; 96366; 96375; 97162; 99285; A4216; A4649; J0131; J0612; J0692; J1644; J1815; J2470; J2543; J2997; J3373; J7030; J7050; J7120; P9047; A9270